=== PATIENT | male | born 1965 | race Caucasian/White ===

== ENCOUNTER → 2020-08-31 16:28 | Outpatient (CLI) | payer BC, SELFPAY ==
[2020-09-01 08:48] LABS: Basophils % 0.5 % (0.1-2.0); Eosinophils # 0.1 K/mm3 (0.0-0.4); Eosinophils % 2.2 % (0.1-12.0); Hematocrit 50.2 % (42.0-52.0); Hemoglobin 16.2 g/dL (14.1-18.0); Lymphocytes # 2.3 K/mm3 (0.7-4.5); Lymphocytes % 36.6 % (10-50); Mean Corpuscular HGB Conc 32.3 g/dL (31.8-35.4); Mean Corpuscular Hemoglobin 31.4 pg (27.0-31.2); Mean Corpuscular Volume 97.2 fl (80-94); Mean Platelet Volume 10.5 fl (7.4-10.4); Monocytes # 0.3 K/mm3 (0.1-1.0); Monocytes % 5.4 % (1.7-9.3); Neutrophils # 3.5 K/mm3 (1.8-7.8); Neutrophils % 55.3 % (37.0-80.0); Platelet Count 229 K/mm3 (142-424); Red Blood Count 5.17 M/mm3 (4.60-6.20); Red Cell Distribution Width 12.7 % (11.5-17.5); White Blood Count 6.3 K/mm3 (4.8-10.8)
[2020-09-01 09:01] LABS: Alanine Aminotransferase 26 U/L (12-78); Albumin Level 4.4 g/dl (3.5-5.0); Albumin/Globulin Ratio 1.6 (1.1-1.8); Alkaline Phosphatase 93 U/L (38-126); Anion Gap 12.8 mEq/L (5-15); Aspartate Amino Transferase 30 U/L (17-59); Bilirubin,Total 0.5 mg/dl (0.2-1.3); Blood Urea Nitrogen 13 mg/dl (9-20); Calcium 9.7 mg/dl (8.4-10.2); Carbon Dioxide 29 mmol/L (22.0-30.0); Chloride 103 mmol/L (98-107); Chol/HDL Ratio 5.9 (1-3.5); Cholesterol 199 mg/dl (140-200); Estimated Glomerular Filt Rate 100 ml/min (>60); GFR (African American) 121 ML/MIN (>60); Globulin 2.7 g/dL (1.3-3.2); Glucose 100 mg/dl (74-100); HDL Cholesterol 34 mg/dl (40-60); Potassium 4.8 mmoL/L (3.5-5.1); Sodium 140 mmol/L (136-145); Total Protein,Serum 7.1 g/dl (6.3-8.2); Triglycerides 304 mg/dl (30-150); VLDL Cholesterol 61 mg/dL (0-40)
[2020-09-01 09:12] LABS: Direct LDL Cholesterol 115.08 mg/dL (100-129)
[2020-09-01 09:32] LABS: Prostate Specific Ag, Diagnost 1.06 ng/ml (0.0-4.0)
[2020-09-08 13:25] LABS: Testosterone, Total, LC/MS 358.3 ng/dL (264.0-916.0)
== END ==
PROVIDERS: Visit Provider Family Medicine
DX: Z00.00 Encounter for general adult medical examination without abnormal findings (principal); Z12.5 Encounter for screening for malignant neoplasm of prostate
CPT/HCPCS: 80053; 80061; 84153; 84402; 84403; 85025

== ENCOUNTER → 2022-08-13 06:43 | Outpatient (CLI) | payer SELFPAY | PROVIDERS: PCP Family Medicine; Visit Provider Family Medicine | DX: N23 Unspecified renal colic (principal) | CPT/HCPCS: 87086 ==

== ENCOUNTER → 2023-05-22 16:01 | Outpatient (CLI) | payer SELFPAY ==
[2023-05-22 18:40] LABS: Hematocrit 46.8 % (42.0-52.0); Hemoglobin 15.2 g/dL (14.1-18.0); Mean Corpuscular HGB Conc 32.6 g/dL (31.8-35.4); Mean Corpuscular Hemoglobin 30.3 pg (27.0-31.2); Mean Corpuscular Volume 93.1 fl (80-94); Mean Platelet Volume 9.2 fl (7.4-10.4); Platelet Count 233 K/mm3 (142-424); Red Blood Count 5.02 M/mm3 (4.60-6.20); Red Cell Distribution Width 13.4 % (11.5-17.5); White Blood Count 6.9 K/mm3 (4.8-10.8)
[2023-05-22 18:41] LABS: Basophils % 0.3 % (0.1-2.0); Eosinophils # 0.1 K/mm3 (0.0-0.4); Eosinophils % 1.4 % (0.1-12.0); Lymphocytes # 2.2 K/mm3 (0.7-4.5); Lymphocytes % 31.6 % (10-50); Monocytes # 0.3 K/mm3 (0.1-1.0); Monocytes % 4.2 % (1.7-9.3); Neutrophils # 4.3 K/mm3 (1.8-7.8); Neutrophils % 62.4 % (37.0-80.0)
[2023-05-22 18:56] LABS: Alanine Aminotransferase 21 U/L (12-78); Albumin Level 4.2 g/dl (3.5-5.0); Albumin/Globulin Ratio 1.6 (1.1-1.8); Alkaline Phosphatase 79 U/L (38-126); Anion Gap 16.1 mEq/L (5-15); Aspartate Amino Transferase 25 U/L (17-59); Bilirubin,Total 0.2 mg/dl (0.2-1.3); Blood Urea Nitrogen 11 mg/dl (9-20); Calcium 9.1 mg/dl (8.4-10.2); Carbon Dioxide 26 mmol/L (22.0-30.0); Chloride 101 mmol/L (98-107); Chol/HDL Ratio 5.3 (1-3.5); Cholesterol 184 mg/dl (140-200); Estimated Glomerular Filt Rate 99 ml/min (>60); GFR (African American) 120 ML/MIN (>60); Globulin 2.6 g/dL (1.3-3.2); Glucose 96 mg/dl (74-100); HDL Cholesterol 35 mg/dl (40-60); Potassium 4.1 mmoL/L (3.5-5.1); Sodium 139 mmol/L (136-145); Total Protein,Serum 6.8 g/dl (6.3-8.2); Triglycerides 193 mg/dl (30-150); VLDL Cholesterol 39 mg/dL (0-40)
[2023-05-22 19:15] LABS: Direct LDL Cholesterol 104.23 mg/dL (100-129)
[2023-05-22 19:29] LABS: Prostate Specific Ag Screen 1.7 ng/ml (0.0-4.0); Thyroid Stimulating Hormone 1.07 uIU/mL (0.465-4.68)
[2023-05-24 08:17] LABS: Testosterone,Total 276 ng/dL (264-916)
== END ==
LOC: LAB.DROPOF 05-23 06:45
PROVIDERS: PCP Family Medicine; Visit Provider Family Medicine
DX: Z00.00 Encounter for general adult medical examination without abnormal findings (principal); R53.83 Other fatigue; R10.9 Unspecified abdominal pain; R10.2 Pelvic and perineal pain; Z79.899 Other long term (current) drug therapy
CPT/HCPCS: 80053; 80061; 84403; 84443; 85025; G0103

== ENCOUNTER 2024-06-17 12:48 | Inpatient (IN) | payer MEDICAID, SELFPAY ==
[2024-06-17] VITALS (24 sets, daily range): BP systolic 115–179; BP diastolic 60–98; PULSE 60–92; RESP 14–27; TEMP 36.4–36.9; O2SAT 89–97; BMI 26.9
[2024-06-17 12:57] LABS: Microscopic, Urine URINE MICROSCOPIC (MICROSCOPIC)
[2024-06-17 12:59] LABS: Appearance,Urine CLEAR (Clear); Blood, Urine TRACE-I (Negative); Glucose,Urine (UA) Negative (Negative); Ketones,Urine Negative (Negative); Leukocyte Esterase,Urine Negative (Negative); Nitrate,Urine Negative (Negative); Protein,Urine Negative (Negative); Specific Gravity, Urine 1.025 (1.005-1.030)
[2024-06-17 13:13] LABS: Bilirubin,Urine Negative (Negative)
[2024-06-17 13:14] LABS: Color,Urine Dark Yellow (Yellow)
--- NOTE | 2024-06-17 13:21 | CT_ITS ---
FINAL REPORT TECHNIQUE: IV contrast enhanced exam This study was performed with techniques to keep radiation doses as low as reasonably achievable, (ALARA). Individualized dose reduction techniques using automated exposure control or adjustment of mA and/or kV according to the patient''s size were employed. CLINICAL HISTORY: lower abd pain, history of SBO, bilious vomit FINDINGS: Abdomen: There are numerous small calcified granulomas throughout the lung bases. The gallbladder is contracted. There is a left adrenal mass measuring 27 x 24 mm. The remaining solid abdominal organs are unremarkable. There is proximal small bowel distension with fluid measuring up to 37 mm with distal small bowel decompressed. The transition point is noted within the right abdomen best seen on coronal images 34-37 with thickened jejunum at the transition point. The distal most small bowel shows no wall thickening. There is no adenopathy. Pelvis: The appendix is not identified but there are no secondary findings to suggest appendicitis. There is trace free fluid. The prostate is mildly enlarged. Tiny left inguinal hernia is identified. There is no free fluid. IMPRESSION: High-grade small-bowel obstruction involving mid jejunum in the right abdomen. Transition point associated with mildly thickened small bowel without obvious hernia or surrounding mass. Reviewed, Interpreted and Dictated by Andrew Acuna MD Transcribed by Keyla Marquez Authenticated and [facility]
[2024-06-17 13:28] LABS: Basophils % 0.3 % (0.1-2.0); Eosinophils # 0.1 K/mm3 (0.0-0.4); Eosinophils % 0.8 % (0.1-12.0); Hematocrit 50.4 % (42.0-52.0); Hemoglobin 16.9 g/dL (14.1-18.0); Lymphocytes # 1.3 K/mm3 (0.7-4.5); Mean Corpuscular HGB Conc 33.5 g/dL (31.8-35.4); Mean Corpuscular Hemoglobin 31.2 pg (27.0-31.2); Mean Corpuscular Volume 93.2 fl (80-94); Mean Platelet Volume 8.3 fl (7.4-10.4); Monocytes # 0.3 K/mm3 (0.1-1.0); Monocytes % 3.2 % (1.7-9.3); Neutrophils # 8.8 K/mm3 (1.8-7.8); Neutrophils % 83.7 % (37.0-80.0); Platelet Count 246 K/mm3 (142-424); Red Blood Count 5.41 M/mm3 (4.60-6.20); Red Cell Distribution Width 13.9 % (11.5-17.5); White Blood Count 10.5 K/mm3 (4.8-10.8)
[2024-06-17 13:29] LABS: Chloride 105 mmol/L (98-107); Potassium 4.1 mmoL/L (3.5-5.1); Sodium 139 mmol/L (136-145)
[2024-06-17 13:31] LABS: Alanine Aminotransferase 31 U/L (12-78); Aspartate Amino Transferase 31 U/L (17-59); Blood Urea Nitrogen 18 mg/dl (9-20); Creatinine Clearance Estimated 107 mL/min (50-200); Estimated Glomerular Filt Rate 86 ml/min (>60); GFR (African American) 105 ML/MIN (>60)
[2024-06-17] MEDS: ACETAMINOPHEN 1,000MG/100ML VIAL 1000 MG IV (13:31)
[2024-06-17] MEDS: KETOROLAC 30MG/ML VIAL 15 MG IV (13:31)
[2024-06-17] MEDS: LACTATED RINGERS 1000ML 1,000 ML 999 ML IV (13:31)
[2024-06-17] MEDS: HYDROMORPHONE 2MG/ML SYRINGE 0.5 MG IV (13:31)
[2024-06-17] MEDS: ONDANSETRON 4MG/2ML VIAL 4 MG IV (13:31)
[2024-06-17 13:32] LABS: Albumin Level 4.5 g/dl (3.5-5.0); Albumin/Globulin Ratio 1.5 (1.1-1.8); Alkaline Phosphatase 70 U/L (38-126); Anion Gap 10.1 mEq/L (5-15); Bilirubin,Total 0.9 mg/dl (0.2-1.3); Calcium 9.7 mg/dl (8.4-10.2); Carbon Dioxide 28 mmol/L (22.0-30.0); Globulin 3.1 g/dL (1.3-3.2); Glucose 124 mg/dl (74-100); Lipase 34 U/L (23-300); Total Protein,Serum 7.6 g/dl (6.3-8.2)
[2024-06-17 13:40] LABS: Lactic Acid 1.5 mmol/L (0.7-2.1)
--- NOTE | 2024-06-17 13:42 | HMH.EDGENADL ---
Discharge Plan Disposition Patient Disposition: Admitted Prescriptions Prescriptions: No Action atorvastatin 40 mg tablet 40 mg PO HS Qty: 90 3RF clopidogrel 75 mg tablet 75 mg PO DAILY Qty: 90 3RF bupropion HCl [Wellbutrin SR] 150 mg tablet sustained-release 12 hr 150 mg PO BID Qty: 180 3RF sildenafil [Viagra] 100 mg tablet 100 mg PO DAILY PRN (Reason: sexual activity) Qty: 10 12RF Rx Instructions: administer 30 minutes to 4 hours before activity fluoxetine 20 mg capsule See Rx Instructions .ROUTE .COMPLEX Qty: 30 0RF Dose Instruction: TAKE 1 CAPSULE BY MOUTH DAILY Rx Instructions: TAKE 1 CAPSULE BY MOUTH DAILY Referrals Follow up/Referrals: Ceasar Myles MD [Primary Care Provider] - See instructions Clinical Impressions Clinical Impression: SBO (small bowel obstruction) Instructions Patient Instructions: DI for Acute Abdominal Pain Print Language Print Language: Hungarian Discharge ED Provider: Sung Shook General Adult HPI <Sung Shook MD - Last Filed: 06/17/24 14:50> General Chief complaint: Abdominal Pain Stated complaint: abd pain vomiting Time Seen by Provider: 06/17/24 13:06 Mode of Arrival: Ambulatory Source of Information: Patient and Spouse Limitations: No Limitations Description of Symptoms (Recalled from ER Triage Doc. by RN): pt c/o umbilical abd pain that is cramping in nature and 8/10. pt reports his last BM was 06/14. pt reports he has not had a BM since nor is he passing gas. pt does report belching and N/V. pt has a hx of SBO, RI, and an appe. History of Present Illness HPI narrative: Please note that above description of symptoms, in this electronic medical record under categorization of recalled from ER triage doctor by RN are reflective of an initial nursing assessment, however, is not reflective of my full history and physical exam that was personally taken and clarified. Consequentially, this preceding description of symptoms, which may include the patient's categorized chief complaint in the EMR, do not reflect my personal clinical impression, and the ultimate description of history of present illness and patient stated complaints should be deferred to this section of the note. Unless stated otherwise or congruent with this section of the note, additional signs, symptoms, or incongruence should be interpreted as inaccurate with my clinical impression. Related Data Previous Rx's ?Medication ?Instructions ?Recorded atorvastatin 40 mg tablet 40 mg PO HS #90 tabs 01/07/24 bupropion HCl 150 mg tablet,12 hr 150 mg PO BID #180 ea 01/07/24 sustained-release (Wellbutrin SR) clopidogrel 75 mg tablet 75 mg PO DAILY #90 tabs 01/07/24 sildenafil 100 mg tablet (Viagra) 100 mg PO DAILY PRN sexual 01/07/24 activity #10 tabs fluoxetine 20 mg capsule See Rx Instructions .Route 06/08/24 .COMPLEX #30 caps Allergies Allergy/AdvReac Type Severity Reaction Status Date / Time No Known Allergies Allergy Verified 06/17/24 13:24 PFS <Sung Shook MD - Last Filed: 06/17/24 14:50> [facility] Disclaimer: The information contained in this section may have been updated after the patient was seen, as this information can be updated by other users. Medical History Depression Erosive osteoarthritis of multiple sites Heart attack Surgical History Hx of appendectomy Family History Other Diabetes Social History Smoking Status: Never smoker alcohol intake: current alcohol intake frequency: holidays/special occasions only substance use type: denies use current occupational status: employed Travel in the last 8 weeks: None household members: none housing: apartment <Sung Shook MD - Last Filed: 06/17/24 14:50> ROS Obtained: Yes All systems reviewed & no additional complaints except as documented Physical Exam <Sung Shook MD - Last Filed: 06/17/24 14:50> General General appearance: alert and in distress (Mild distress secondary to pain, moving around in room in bed) Head Head exam: atraumatic and normocephalic Eye Eye exam: Present normal appearance, PERRL and EOMI Neck Neck exam: Present normal inspection, full ROM and trachea midline Respiratory Respiratory exam: Absent respiratory distress, wheezes, stridor, accessory muscle use or prolonged expiratory phase Cardiovascular Cardiovascular exam: Present regular rate, normal rhythm and other (Pulses equal symmetric in upper and lower extremities) Abdominal Exam Abdominal exam: Present soft, distention, tenderness, guarding and rebound; Absent rigidity or pulsatile mass Abdominal tenderness: Present diffuse and severe Extremities Exam Extremities exam: Absent edema Neurological Exam Neurological exam: Present alert, oriented X3 and CN II-XII intact; Absent motor sensory deficit Skin Skin exam: Present warm and dry; Absent diaphoresis or erythema Medical Decision Making <Sung Shook MD - Last Filed: 06/17/24 14:50> Medical Records Medical records reviewed: Yes I reviewed the patient's medical records. Chalino Inquiry Pt receiving controlled substance: No Chalino was queried for this patient: No Vital Signs: 06/17/24 12:55 06/17/24 13:16 06/17/24 13:31 Temperature 98.4 F Temperature Source Oral Pulse Rate 70 76 Pulse Rate [Left] 71 Respiratory Rate 16 Blood Pressure 142/92 H 144/88 H Blood Pressure [Right Arm] 142/92 H Blood Pressure Mean 106 113 Blood Pressure Mean [Right Arm] 108 Blood Pressure Source [Right Arm] Automatic Cuff Blood Pressure Position [Right Arm] Sitting 02 Sat by Pulse Oximetry 96 96 96 Oxygen Delivery Method Room Air Room Air Room Air 06/17/24 14:01 06/17/24 14:30 06/17/24 15:00 Temperature Temperature Source Pulse Rate 66 63 63 Pulse Rate [Left] Respiratory Rate Blood Pressure 127/67 132/72 127/84 Blood Pressure [Right Arm] Blood Pressure Mean 87 92 93 Blood Pressure Mean [Right Arm] Blood Pressure Source [Right Arm] Blood Pressure Position [Right Arm] 02 Sat by Pulse Oximetry 95 95 96 Oxygen Delivery Method Room Air Room Air Room Air Lab Data Lab Results 06/17/24 12:51: Urine Color Dark yellow, Urine Appearance Clear, Urine pH 6.0, Ur Specific Channing 1.025, Urine Protein Negative, Urine Glucose (UA) Negative, Urine Ketones Negative, Urine Blood Trace-i, Urine Nitrate Negative, Urine Bilirubin Negative, Urine Urobilinogen 1.0, Ur Leukocyte Esterase Negative, Urine RBC Occasional, Urine WBC 3-5, Ur Squamous Epith Cells 3-5, Urine Bacteria Trace, Urine Mucus Trace 06/17/24 13:03: WBC 10.5, RBC 5.41, Hgb 16.9, Hct 50.4, MCV 93.2, MCH 31.2, MCHC 33.5, RDW 13.9, Plt Count 246, MPV 8.3, Neut % (Auto) 83.7 H, Lymph % (Auto) 12.0, [place] % (Auto) 3.2, Eos % (Auto) 0.8, Baso % (Auto) 0.3, Neut # (Auto) 8.8 H, Lymph # (Auto) 1.3, [place] # (Auto) 0.3, Eos # (Auto) 0.1, Baso # (Auto) 0.0, Sodium 139, Potassium 4.1, Chloride 105, Carbon Dioxide 28, Anion Gap 10.1, BUN 18, Creatinine 0.90, Estimated Creat Clear 107, Estimated GFR 86, Est GFR ( Amer) 105, Glucose 124 H, Lactate 1.5, Calcium 9.7, Total Bilirubin 0.9, AST 31, ALT 31, Alkaline Phosphatase 70, Total Protein 7.6, Albumin 4.5, Globulin 3.1, Albumin/Globulin Ratio 1.5, Lipase 34 06/17/24 13:03 06/17/24 13:03 Orders (Tests/Meds): ED MEDICATIONS Generic Name Dose Route Start Last Admin Trade Name Freq PRN Reason Stop Dose Admin Ampicillin Sodium/Sulbactam 100 mls @ 200 mls/hr 06/17/24 15:26 Sodium 3 gm/ Sodium Chloride IV 06/17/24 15:27 ONCE ONE Discontinued Medications Generic Name Dose Route Start Last Admin Trade Name Freq PRN Reason Stop Dose Admin Acetaminophen 1,000 mg 06/17/24 13:21 06/17/24 13:31 Acetaminophen 1,000mg/100ml Vial IV 06/17/24 13:22 1,000 mg ONCE ONE Administration Hydromorphone HCl 0.5 mg 06/17/24 13:21 06/17/24 13:31 Hydromorphone 2mg/Ml Syringe IV 06/17/24 13:22 0.5 mg ONCE ONE Administration Lactated Ringer's 1,000 mls @ 999 mls/hr 06/17/24 13:22 06/17/24 13:31 Lactated Ringer's 1000 Ml Bag IV 06/17/24 14:22 999 mls/hr .Q1H1M ONE Administration Iopamidol 75 ml 06/17/24 13:56 06/17/24 13:57 Iopamidol-370 (76%);100ml Bottle IV 06/17/24 13:57 75 ml ONCE ONE Administration Ketorolac Tromethamine 15 mg 06/17/24 13:21 06/17/24 13:31 Ketorolac 30mg/Ml Vial IV 06/17/24 13:22 15 mg ONCE ONE Administration Ondansetron HCl 4 mg 06/17/24 13:21 06/17/24 13:31 Ondansetron 4mg/2ml Vial IV 06/17/24 13:22 4 mg ONCE ONE Administration Sodium Chloride 10 ml 06/17/24 13:56 06/17/24 13:57 Sodium Chloride 0.9% 10ml Syr (Rad Only) IV 06/17/24 13:57 10 ml ONCE ONE Administration ORDERS Category Date Time Status CT abdomen pelvis w con Stat Cat Scan 06/17/24 13:21 Completed Surgery Consult (on-call) [Consult to On-Call Gen'l Cons 06/17/24 14:49 Ordered Surgeon] [CONS] Routine KUB (single view) [XR KUB] Stat Exams 06/17/24 14:47 Taken CBC w/Auto Diff [Complete Blood Count Auto Diff] Stat Lab 06/17/24 13:03 Completed CMP [Comprehensive Metabolic Panel] Stat Lab 06/17/24 13:03 Completed Complete Blood Count Auto Diff AMLAB Lab 06/18/24 06:00 Ordered Comprehensive Metabolic Panel AMLAB Lab 06/18/24 06:00 Ordered Lactic Acid Stat Lab 06/17/24 13:03 Completed Lipase Stat Lab 06/17/24 13:03 Completed Magnesium AMLAB Lab 06/18/24 06:00 Ordered UA [Urinalysis and Microscopic] Stat Lab 06/17/24 12:51 Completed Medical Decision Narrative: 58-year-old male history of hypertension, hyperlipidemia, RI and CAD status post stenting, congenital gastroschisis status post repair, appendectomy presenting with abdominal pain. Patient states that he had a small bowel obstruction about 15 years ago, felt a lot like this. He states that he has not had a bowel movement now in 4 days. 3 days ago, started having lower abdominal cramping pain associated with nausea. Yesterday, 06/16, patient started having vomiting that was dark brown. Has not had any solid food intake in over 24 hours given amount of nausea. Had a couple coffee earlier today, but felt like he was going to vomit shortly thereafter. No fevers, chills, urinary symptoms, blood in his stool, he is not passing gas. Small bowel obstruction 15 years ago was managed nonoperatively. Pain currently severe, diffuse, patient unable to get comfortable, refractory to Tylenol and does not radiate. History was obtained via conversation with patient. On arrival, patient hemodynamically stable, alert, oriented x4, appropriate, GCS 15, moving all extremities spontaneously, pupils equal and reactive to light. Full physical exam performed and significant for uncomfortable appearing male who is in mild distress secondary to pain. Sitting up, lying down, unable to get comfortable. Abdomen is soft, distended, but peritonitic in the sense that is diffusely, severely tender with guarding. Differential includes PUD, gastritis, enteritis, gastroenteritis, pancreatitis, SBO, colitis, diverticulitis, nephrolithiasis, UTI, cholecystitis, choledocholithiasis, appendicitis, torsion, hepatitis, aortic pathology, mesenteric ischemia among others. Patient placed on continuous cardiac monitoring and continuous pulse ox with initial blood pressure 144/88, heart rate 76, saturation 96 on room air. Patient was given Toradol, acetaminophen, Dilaudid, Zofran, fluids for symptomatic management and correction of underlying abnormalities. Workup independently interpreted and significant for nonactionable CBC or chemistry. Lactate negative. Urinalysis negative. CT abdomen pelvis concerning for potential closed-loop small bowel obstruction with maximum diameter small bowel 4.1 cm. See radiology read for full review of final results. On reevaluation, patient pain improved, but still uncomfortable hospital medicine contacted case was discussed at length, recommended calling surgery first. Dr. Nation was contacted and case was discussed at length, he is coming to see patient. Prior to evaluation, care handed off to oncoming physician. NG tube was placed, KUB was ordered. Computer Numeric Control Setter disclaimer Much of this encounter note is an electronic bread and pastry baker spoken language to printed text. Electronic bread and pastry baker of the spoken language may permit errors. Although I have reviewed the note, some errors may still exist. <Patti Briggs, DO - Last Filed: 06/17/24 15:28> Vital Signs: 06/17/24 12:55 06/17/24 13:16 06/17/24 13:31 Temperature 98.4 F Temperature Source Oral Pulse Rate 70 76 Pulse Rate [Left] 71 Respiratory Rate 16 Blood Pressure 142/92 H 144/88 H Blood Pressure [Right Arm] 142/92 H Blood Pressure Mean 106 113 Blood Pressure Mean [Right Arm] 108 Blood Pressure Source [Right Arm] Automatic Cuff Blood Pressure Position [Right Arm] Sitting 02 Sat by Pulse Oximetry 96 96 96 Oxygen Delivery Method Room Air Room Air Room Air 06/17/24 14:01 06/17/24 14:30 06/17/24 15:00 Temperature Temperature Source Pulse Rate 66 63 63 Pulse Rate [Left] Respiratory Rate Blood Pressure 127/67 132/72 127/84 Blood Pressure [Right Arm] Blood Pressure Mean 87 92 93 Blood Pressure Mean [Right Arm] Blood Pressure Source [Right Arm] Blood Pressure Position [Right Arm] 02 Sat by Pulse Oximetry 95 95 96 Oxygen Delivery Method Room Air Room Air Room Air Lab Data Lab Results 06/17/24 12:51: Urine Color Dark yellow, Urine Appearance Clear, Urine pH 6.0, Ur Specific Channing 1.025, Urine Protein Negative, Urine Glucose (UA) Negative, Urine Ketones Negative, Urine Blood Trace-i, Urine Nitrate Negative, Urine Bilirubin Negative, Urine Urobilinogen 1.0, Ur Leukocyte Esterase Negative, Urine RBC Occasional, Urine WBC 3-5, Ur Squamous Epith Cells 3-5, Urine Bacteria Trace, Urine Mucus Trace 06/17/24 13:03: WBC 10.5, RBC 5.41, Hgb 16.9, Hct 50.4, MCV 93.2, MCH 31.2, MCHC 33.5, RDW 13.9, Plt Count 246, MPV 8.3, Neut % (Auto) 83.7 H, Lymph % (Auto) 12.0, [place]eton % (Auto) 3.2, Eos % (Auto) 0.8, Baso % (Auto) 0.3, Neut # (Auto) 8.8 H, Lymph # (Auto) 1.3, [place] # (Auto) 0.3, Eos # (Auto) 0.1, Baso # (Auto) 0.0, Sodium 139, Potassium 4.1, Chloride 105, Carbon Dioxide 28, Anion Gap 10.1, BUN 18, Creatinine 0.90, Estimated Creat Clear 107, Estimated GFR 86, Est GFR ( Amer) 105, Glucose 124 H, Lactate 1.5, Calcium 9.7, Total Bilirubin 0.9, AST 31, ALT 31, Alkaline Phosphatase 70, Total Protein 7.6, Albumin 4.5, Globulin 3.1, Albumin/Globulin Ratio 1.5, Lipase 34 Orders (Tests/Meds): ED MEDICATIONS Generic Name Dose Route Start Last Admin Trade Name Veronika PRN Reason Stop Dose Admin Ampicillin Sodium/Sulbactam 100 mls @ 200 mls/hr 06/17/24 15:26 Sodium 3 gm/ Sodium Chloride IV 06/17/24 15:27 ONCE ONE Discontinued Medications Generic Name Dose Route Start Last Admin Trade Name Veronika PRN Reason Stop Dose Admin Acetaminophen 1,000 mg 06/17/24 13:21 06/17/24 13:31 Acetaminophen 1,000mg/100ml Vial IV 06/17/24 13:22 1,000 mg ONCE ONE Administration Hydromorphone HCl 0.5 mg 06/17/24 13:21 06/17/24 13:31 Hydromorphone 2mg/Ml Syringe IV 06/17/24 13:22 0.5 mg ONCE ONE Administration Lactated Ringer's 1,000 mls @ 999 mls/hr 06/17/24 13:22 06/17/24 13:31 Lactated Ringer's 1000 Ml Bag IV 06/17/24 14:22 999 mls/hr .Q1H1M ONE Administration Iopamidol 75 ml 06/17/24 13:56 06/17/24 13:57 Iopamidol-370 (76%);100ml Bottle IV 06/17/24 13:57 75 ml ONCE ONE Administration Ketorolac Tromethamine 15 mg 06/17/24 13:21 06/17/24 13:31 Ketorolac 30mg/Ml Vial IV 06/17/24 13:22 15 mg ONCE ONE Administration Ondansetron HCl 4 mg 06/17/24 13:21 06/17/24 13:31 Ondansetron 4mg/2ml Vial IV 06/17/24 13:22 4 mg ONCE ONE Administration Sodium Chloride 10 ml 06/17/24 13:56 06/17/24 13:57 Sodium Chloride 0.9% 10ml Syr (Rad Only) IV 06/17/24 13:57 10 ml ONCE ONE Administration ORDERS Category Date Time Status CT abdomen pelvis w con Stat Cat Scan 06/17/24 13:21 Completed Surgery Consult (on-call) [Consult to On-Call Gen'l Cons 06/17/24 14:49 Ordered Surgeon] [CONS] Routine KUB (single view) [XR KUB] Stat Exams 06/17/24 14:47 Taken CBC w/Auto Diff [Complete Blood Count Auto Diff] Stat Lab 06/17/24 13:03 Completed CMP [Comprehensive Metabolic Panel] Stat Lab 06/17/24 13:03 Completed Complete Blood Count Auto Diff AMLAB Lab 06/18/24 06:00 Ordered Comprehensive Metabolic Panel AMLAB Lab 06/18/24 06:00 Ordered Lactic Acid Stat Lab 06/17/24 13:03 Completed Lipase Stat Lab 06/17/24 13:03 Completed Magnesium AMLAB Lab 06/18/24 06:00 Ordered UA [Urinalysis and Microscopic] Stat Lab 06/17/24 12:51 Completed ECG Data Tracing #1: I reviewed this ECG and interpreted as documented below: Sinus bradycardia with a ventricular rate of [address] changes concerning for ischemia. Normal axis and intervals. ECG initial impression date: 06/17/24 ECG initial impression time: 15:27 Medical Decision Narrative: 58-year-old male history of hypertension, hyperlipidemia, RI and CAD status post stenting, congenital gastroschisis status post repair, appendectomy presenting with abdominal pain. Patient states that he had a small bowel obstruction about 15 years ago, felt a lot like this. He states that he has not had a bowel movement now in 4 days. 3 days ago, started having lower abdominal cramping pain associated with nausea. Yesterday, 06/16, patient started having vomiting that was dark brown. Has not had any solid food intake in over 24 hours given amount of nausea. Had a couple coffee earlier today, but felt like he was going to vomit shortly thereafter. No fevers, chills, urinary symptoms, blood in his stool, he is not passing gas. Small bowel obstruction 15 years ago was managed nonoperatively. Pain currently severe, diffuse, patient unable to get comfortable, refractory to Tylenol and does not radiate. History was obtained via conversation with patient. On arrival, patient hemodynamically stable, alert, oriented x4, appropriate, GCS 15, moving all extremities spontaneously, pupils equal and reactive to light. Full physical exam performed and significant for uncomfortable appearing male who is in mild distress secondary to pain. Sitting up, lying down, unable to get comfortable. Abdomen is soft, distended, but peritonitic in the sense that is diffusely, severely tender with guarding. Differential includes PUD, gastritis, enteritis, gastroenteritis, pancreatitis, SBO, colitis, diverticulitis, nephrolithiasis, UTI, cholecystitis, choledocholithiasis, appendicitis, torsion, hepatitis, aortic pathology, mesenteric ischemia among others. Patient placed on continuous cardiac monitoring and continuous pulse ox with initial blood pressure 144/88, heart rate 76, saturation 96 on room air. Patient was given Toradol, acetaminophen, Dilaudid, Zofran, fluids for symptomatic management and correction of underlying abnormalities. Workup independently interpreted and significant for nonactionable CBC or chemistry. Lactate negative. Urinalysis negative. CT abdomen pelvis concerning for potential closed-loop small bowel obstruction with maximum diameter small bowel 4.1 cm. See radiology read for full review of final results. On reevaluation, patient pain improved, but still uncomfortable hospital medicine contacted case was discussed at length, recommended calling surgery first. Dr. Nation was contacted and case was discussed at length, he is coming to see patient. Prior to evaluation, care handed off to oncoming physician. NG tube was placed, KUB was ordered. Computer Numeric Control Setter disclaimer Much of this encounter note is an electronic bread and pastry baker spoken language to printed text. Electronic bread and pastry baker of the spoken language may permit errors. Although I have reviewed the note, some errors may still exist. DO [place]: On my assessment of the Patient, he is stable. Surgery recommended going to the OR now for evaluation and management. I had an interactive discussion with the hospitalist who is to admit the patient following his operative intervention. Critical Care <Sung Shook MD - Last Filed: 06/17/24 14:50> Critical Care Time Critical Care Time: Yes (GI) Attestation: On 06/17/24, the high probability of a clinically significant, sudden or life threatening deterioration of the following system(s) required my full and direct attention, intervention and personal management. The time I documented below is in addition to time spent performing reported procedures but includes the following listed in this critical care notation. Total Time Total Critical Care Time: 45
[2024-06-17] MEDS: IOPAMIDOL-370 (76%);100ML BOTTLE 75 ML IV (13:57)
[2024-06-17] MEDS: SODIUM CHLORIDE 0.9% 10ML SYR (RAD ONLY) 10 ML IV (13:57)
[2024-06-17 14:10] LABS: Bacteria,Urine Trace /lpf; RBC,Urine Occasional #/hpf (0-3)
[2024-06-17 14:11] LABS: Mucus,Urine Trace /lpf
--- NOTE | 2024-06-17 14:47 | XR_ITS ---
FINAL REPORT CLINICAL HISTORY: NGT placement COMPARISON: None FINDINGS: NG tube is located in the proximal gastric body. There is small bowel distention in a pattern suggesting obstruction. Contrast is seen within a nondistended bladder. No abnormal radiopacities are seen in the abdomen. IMPRESSION: NG tube in the proximal gastric body. Small bowel distention suggesting obstruction. Reviewed, Interpreted and Dictated by Andrew Acuna MD Transcribed by Sarika Mahajan Authenticated and . [facility]
--- NOTE | 2024-06-17 14:57 | PC.NURSE ---
Dr. Farias at for consult
--- NOTE | 2024-06-17 15:19 | PC.NURSE ---
DR MCALLISTER NOTIFIED OF PT NEED FOR ADMISSION AFTER SURGERY
--- NOTE | 2024-06-17 15:20 | EXP.SURG.CON ---
History of Present Illness *Admission Date: 06/17/24 *Reason for visit:: Abdominal pain *History of present illness: Patient is a 58-year-old male from [facility] whom had previous abdominal surgery as an infant without specific details known. He did have an open appendectomy as well. He has had a prior history of small bowel obstruction managed nonoperatively. He states that he had developed abdominal pain in the mid abdomen about 2 days ago described as cramping. He has had obstipation and not passing gas. He had nausea and some vomiting. Due to the persistence of his pain he presented to the emergency department. He was found to have appreciable tenderness on examination. Surgical consultation was obtained. In the interim CT report returns with findings of high-grade small bowel obstruction involving mid jejunum with transition point associated with mildly thickened small bowel. [facility] Disclaimer: The information contained in this section may have been updated after the patient was seen, as this information can be updated by other users. Medical History Depression Erosive osteoarthritis of multiple sites Heart attack Surgical History Hx of appendectomy Family History Other Diabetes Social History Smoking Status: Never smoker alcohol intake: current alcohol intake frequency: holidays/special occasions only substance use type: denies use current occupational status: employed Travel in the last 8 weeks: None household members: none housing: apartment Meds Home Medications and Allergies Home Medications ?Medication ?Instructions ?Recorded ?Confirmed ?Type atorvastatin 40 mg tablet 40 mg PO HS #90 tabs 01/07/24 01/22/24 Rx bupropion HCl 150 mg tablet,12 hr 150 mg PO BID #180 ea 01/07/24 01/22/24 Rx sustained-release (Wellbutrin SR) clopidogrel 75 mg tablet 75 mg PO DAILY #90 tabs 01/07/24 01/22/24 Rx sildenafil 100 mg tablet (Viagra) 100 mg PO DAILY PRN sexual 01/07/24 01/22/24 Rx activity #10 tabs fluoxetine 20 mg capsule See Rx Instructions .Route 06/08/24 Rx .COMPLEX #30 caps New Prescriptions to Start Prescriptions: Allergies Allergy/AdvReac Type Severity Reaction Status Date / Time No Known Allergies Allergy Verified 06/17/24 13:24 Exam (Inpt) Vital signs and Labs for Last 24 Hours: Temp Pulse Resp BP Pulse Ox O2 Del Method 98.4 F 63 16 127/84 96 Room Air 06/17/24 13:16 06/17/24 15:00 06/17/24 13:16 06/17/24 15:00 06/17/24 15:00 06/17/24 15:00 Laboratory Results - last 24 hr 06/17/24 12:51: Urine Color Dark yellow, Urine Appearance Clear, Urine pH 6.0, Ur Specific [place] 1.025, Urine Protein Negative, Urine Glucose (UA) Negative, Urine Ketones Negative, Urine Blood Trace-i, Urine Nitrate Negative, Urine Bilirubin Negative, Urine Urobilinogen 1.0, Ur Leukocyte Esterase Negative, Urine RBC Occasional, Urine WBC 3-5, Ur Squamous Epith Cells 3-5, Urine Bacteria Trace, Urine Mucus Trace 06/17/24 13:03: WBC 10.5, RBC 5.41, Hgb 16.9, Hct 50.4, MCV 93.2, MCH 31.2, MCHC 33.5, RDW 13.9, Plt Count 246, MPV 8.3, Neut % (Auto) 83.7 H, Lymph % (Auto) 12.0, [place] % (Auto) 3.2, Eos % (Auto) 0.8, Baso % (Auto) 0.3, Neut # (Auto) 8.8 H, Lymph # (Auto) 1.3, [place] # (Auto) 0.3, Eos # (Auto) 0.1, Baso # (Auto) 0.0, Sodium 139, Potassium 4.1, Chloride 105, Carbon Dioxide 28, Anion Gap 10.1, BUN 18, Creatinine 0.90, Estimated Creat Clear 107, Estimated GFR 86, Est GFR ( Amer) 105, Glucose 124 H, Lactate 1.5, Calcium 9.7, Total Bilirubin 0.9, AST 31, ALT 31, Alkaline Phosphatase 70, Total Protein 7.6, Albumin 4.5, Globulin 3.1, Albumin/Globulin Ratio 1.5, Lipase 34 I & O for Labs for Last 24 Hours: Intake & Output 06/15/24 06/16/24 06/17/24 06/18/24 11:59 11:59 11:59 11:59 Weight 188 lb Constitutional: mild distress Head: Present normocephalic Cardiac: Present Reg Rate and Rhythm GI: Present soft and tenderness Comments:: Abdomen is not appreciably distended. He does have some significant tenderness with guarding. Results Labs 06/17/24 13:03 06/17/24 13:03 Labs: Laboratory Results - last 24 hr 06/17/24 12:51: Urine Color Dark yellow, Urine Appearance Clear, Urine pH 6.0, Ur Specific [place] 1.025, Urine Protein Negative, Urine Glucose (UA) Negative, Urine Ketones Negative, Urine Blood Trace-i, Urine Nitrate Negative, Urine Bilirubin Negative, Urine Urobilinogen 1.0, Ur Leukocyte Esterase Negative, Urine RBC Occasional, Urine WBC 3-5, Ur Squamous Epith Cells 3-5, Urine Bacteria Trace, Urine Mucus Trace 06/17/24 13:03: WBC 10.5, RBC 5.41, Hgb 16.9, Hct 50.4, MCV 93.2, MCH 31.2, MCHC 33.5, RDW 13.9, Plt Count 246, MPV 8.3, Neut % (Auto) 83.7 H, Lymph % (Auto) 12.0, [place] % (Auto) 3.2, Eos % (Auto) 0.8, Baso % (Auto) 0.3, Neut # (Auto) 8.8 H, Lymph # (Auto) 1.3, [place] # (Auto) 0.3, Eos # (Auto) 0.1, Baso # (Auto) 0.0, Sodium 139, Potassium 4.1, Chloride 105, Carbon Dioxide 28, Anion Gap 10.1, BUN 18, Creatinine 0.90, Estimated Creat Clear 107, Estimated GFR 86, Est GFR ( Amer) 105, Glucose 124 H, Lactate 1.5, Calcium 9.7, Total Bilirubin 0.9, AST 31, ALT 31, Alkaline Phosphatase 70, Total Protein 7.6, Albumin 4.5, Globulin 3.1, Albumin/Globulin Ratio 1.5, Lipase 34 Assessment and Plan *Assessment and plan (1) SBO (small bowel obstruction): Status: Acute Category: Medical Code(s): K56.609 - Unspecified intestinal obstruction, unspecified as to partial versus complete obstruction Plan Patient has findings consistent with high-grade partial versus complete small bowel obstruction with peritonitis findings on examination. Plan will be for emergent exploratory laparotomy with possible bowel resection.
--- NOTE | 2024-06-17 15:24 | PC.NURSE ---
pt changed into gown and all belongings given to his at BS. EKG performed.
--- NOTE | 2024-06-17 15:24 | ECG_ITS ---
APPROVED REPORT Exam: Resting ECG HR:58 bpm ECG Measurements Heart Rate 58 AXES MI 196 P 66 QRSd 91 QRS 57 QT 430 T 59 QTc 427 Conclusion SINUS BRADYCARDIA BORDERLINE ECG Electronically signed by : SANGEETHA GOMES, 06/17/2024 22:08:03
--- NOTE | 2024-06-17 16:20 | PC.NURSE ---
PT IS GONE TO SURGERY
[2024-06-17] MEDS: AMPICILLIN SODIUM/SULBACTAM 3 GM in 0.9 % SODIUM CHLORIDE 100 ML IV ×2 (16:50→22:11)
--- NOTE | 2024-06-17 17:12 | P.PNANES_ITS ---
[facility] Disclaimer: The information contained in this section may have been updated after the patient was seen, as this information can be updated by other users. Medical History Depression Erosive osteoarthritis of multiple sites Heart attack Surgical History Hx of appendectomy Family History Other Diabetes Social History Smoking Status: Never smoker alcohol intake: current alcohol intake frequency: holidays/special occasions only substance use type: denies use current occupational status: employed Travel in the last 8 weeks: None household members: none housing: apartment [facility] Anesthesia Checklist Patient Identification Patient Identification: Verbal (Name & ) Structural Data Admitted From: Emergency Dept Planned Operative Procedure/s: ex laparotomy Consent for Planned Operative Procedure(s) Verified: Yes Verified Documents: Surgical Consent NPO Status Verified Time NPO: 00:00 Airway Assessment Mallampati Score:: Class II C-Spine Mobility Assessed: Yes TMJ Mobility Assessed: Yes Dentition: Edentulous Neurological Assessment Level of Consciousness: Awake, Alert and Appropriate Anesthesia Plan Anesthesia Risk discussed: Yes Anesthesia Plan: Verified ASA Class: III Anesthesia Type: General
[2024-06-17] MEDS: SODIUM CHLORIDE 0.9% 20ML VIAL 40 ML IV (17:27)
--- NOTE | 2024-06-17 19:33 | EXP.OP.NOTE ---
Date of procedure: 06/17/24 Pre-op Diagnosis:: Small bowel obstruction Post-op Diagnosis:: Same Procedure performed:: Exploratory laparotomy with extensive lysis of adhesions and small bowel resection Surgeon:: Jose Antonio Nation MD MIXING PLANT OPERATOR:: Reymundo Marvin Anesthesia: GETA Estimated blood loss (mL): 50 Clinical Note:: Patient is a 58-year-old male. He had previously undergone abdominal surgery as an , exact details unknown. He had an open appendectomy. He did have an episode of a small bowel obstruction which was managed without operation. He states that he had developed abdominal pain in the mid abdomen about 2 days ago described as cramping. He has had obstipation and not passing gas. He had nausea and some vomiting. Due to the persistence of his pain he presented to the emergency department. He was found to have appreciable tenderness on examination. Surgical consultation was obtained. In the interim CT report returns with findings of high-grade small bowel obstruction involving mid jejunum with transition point associated with mildly thickened small bowel. He described his pain as approximately 8 out of 10. He had findings of peritonitis on exam. Plan was made for emergent laparotomy. Operative findings:: He had a complete bowel obstruction in the distal jejunum. There was extremely dense, extensive, matted conglomeration of adhesions. Distal small bowel was completely decompressed and proximal small bowel was dilated and edematous. . Operative note:: Patient was taken to the operating room. He was given preoperative intravenous antibiotics. In the operating room he was placed in a supine position. General anesthesia was induced via endotracheal tube. Eagle catheter was placed. Abdomen was prepped and draped in the standard surgical fashion. Upper midline incision was made. Dissection was carried down through subcutaneous tissues. The fascia was incised. Peritoneum was elevated and incised. There was some thin reactive fluid which was suctioned free. Exposure was achieved. There was markedly distended bowel. This was traced distally and there was extremely extensive very densely matted conglomeration of small bowel. For exposure incision was extended. Very prolonged dissection was carried out using mostly meticulous Metzenbaum dissection to free the small bowel adhesions. Ultimately dissection was carried out to decompressed ileum. There were adhesions here as well but no definite obstruction. The adhesions were freed in a similar fashion as before. Dissection was carried down to the terminal ileum. Small bowel which was freed was then inspected. There were a couple of near full-thickness serosal tears and a focal area of devitalized small bowel secondary to unavoidable mesenteric defect. Therefore this section of small bowel was resected. It was divided proximal with a MILENA 75 type stapling device and at the distal portion of devitalization with MILENA 75 stapling device. This was relatively limited resection given the extensive interloop dense adhesions. Section of small bowel removed was 35 cm. A lets-gw-qfoi anastomosis was created with a MILENA 75 stapling device with the common enterotomy closed with a TX 60 B stapling device. Seromuscular suture using 3-0 Surgilon was placed at the confluence of staple lines. A couple of 3-0 Surgilon sutures were placed at the staple line angle. Anastomosis appeared widely patent and intact. Staple line was oversewn with several interrupted 3-0 Surgilon sutures. Mesenteric defect was closed with running 2-0 Vicryl. Small bowel was returned to the abdomen. Nasogastric tube was confirmed to be in a good position. Please note that the small bowel was then run in its entirety in a retrograde fashion from the terminal ileum to the ligament of Treitz. Enteric contents were returned to the abdominal cavity. Irrigation was performed. Fascia was closed with a running #2 Novafil x 2. Subcutaneous tissues were irrigated. Skin was closed with martina. Clean dry sterile dressing was applied. . Condition: stable Disposition: PACU Complications:: None immediately apparent
[2024-06-17] MEDS: MEPERIDINE 25MG/ML 1ML SYRINGE 25 MG (19:40)
--- NOTE | 2024-06-17 19:46 | P.PNANES_ITS ---
[facility] Anesthesia Record Part I Anesthesia Record I Intake, IV Amount: 3,000 Hydration: Adequate Estimated blood loss (mL): 100 Urine output (mL): 300 Blood Pressure: 179/79 SaO2: 94 Pulse Rate: 90 Airway Patency: Patent Respiratory Rate: 14 Temperature: 97.5 F Patient is:: Awake and Stable Stable to PACU at:: 19:40
[2024-06-17] MEDS: MORPHINE 2MG/ML SYRINGE 2 MG IV (20:10)
--- NOTE | 2024-06-17 20:36 | PC.NURSE ---
pt arrived to floor from surgery at this time
--- NOTE | 2024-06-17 21:00 | EXP.HP ---
History of Present Illness *Admission Date: 06/17/24 *Reason for visit:: abd pain *History of present illness: Patient is a 58-year-old male with PMHx of CAD s/p stent, open appendectomy, and a prior history of small bowel obstruction managed nonoperatively. He states that he had developed abdominal pain in the mid abdomen about 2 days ago described as cramping. He has had obstipation and not passing gas. He had nausea and some vomiting. Due to the persistence of his pain he presented to the emergency department. He was found to have appreciable tenderness on examination. Surgical consultation was obtained. In the interim CT report returns with findings of high-grade small bowel obstruction involving mid jejunum with transition point associated with mildly thickened small bowel. emergently taken to OR for exploratory laparotomy. [facility] Disclaimer: The information contained in this section may have been updated after the patient was seen, as this information can be updated by other users. Medical History Depression Erosive osteoarthritis of multiple sites Heart attack Surgical History Hx of appendectomy Family History Other Diabetes Social History (Updated 06/17/24 @ 22:32 by Yolanda Ndiaye RN) Smoking Status: Never smoker alcohol intake: current alcohol intake frequency: holidays/special occasions only substance use type: denies use current occupational status: employed Travel in the last 8 weeks: None household members: none housing: apartment Review of Systems Review of Systems Review of systems:: pertinent systems reviewed and negative unless documented below Meds Home Medications and Allergies Home Medications ?Medication ?Instructions ?Recorded ?Confirmed ?Type atorvastatin 40 mg tablet 40 mg PO HS #90 tabs 01/07/24 06/17/24 Rx bupropion HCl 150 mg tablet,12 hr 150 mg PO BID #180 ea 01/07/24 06/17/24 Rx sustained-release (Wellbutrin SR) clopidogrel 75 mg tablet 75 mg PO DAILY #90 tabs 01/07/24 06/17/24 Rx sildenafil 100 mg tablet (Viagra) 100 mg PO DAILY PRN sexual 01/07/24 06/17/24 Rx activity #10 tabs fluoxetine 20 mg capsule 20 mg PO DAILY 06/17/24 06/17/24 History New Prescriptions to Start Prescriptions: Allergies Allergy/AdvReac Type Severity Reaction Status Date / Time No Known Allergies Allergy Verified 06/17/24 13:24 Exam Data for Last 24 hours Vital signs and Labs for Last 24 Hours: Temp Pulse Resp BP Pulse Ox O2 Del Method 97.5 F L 88 16 134/69 96 Room Air 06/17/24 19:47 06/17/24 20:10 06/17/24 20:10 06/17/24 20:10 06/17/24 20:10 06/17/24 20:10 Laboratory Results - last 24 hr 06/17/24 12:51: Urine Color Dark yellow, Urine Appearance Clear, Urine pH 6.0, Ur Specific [place] 1.025, Urine Protein Negative, Urine Glucose (UA) Negative, Urine Ketones Negative, Urine Blood Trace-i, Urine Nitrate Negative, Urine Bilirubin Negative, Urine Urobilinogen 1.0, Ur Leukocyte Esterase Negative, Urine RBC Occasional, Urine WBC 3-5, Ur Squamous Epith Cells 3-5, Urine Bacteria Trace, Urine Mucus Trace 06/17/24 13:03: WBC 10.5, RBC 5.41, Hgb 16.9, Hct 50.4, MCV 93.2, MCH 31.2, MCHC 33.5, RDW 13.9, Plt Count 246, MPV 8.3, Neut % (Auto) 83.7 H, Lymph % (Auto) 12.0, [place] % (Auto) 3.2, Eos % (Auto) 0.8, Baso % (Auto) 0.3, Neut # (Auto) 8.8 H, Lymph # (Auto) 1.3, [place] # (Auto) 0.3, Eos # (Auto) 0.1, Baso # (Auto) 0.0, Sodium 139, Potassium 4.1, Chloride 105, Carbon Dioxide 28, Anion Gap 10.1, BUN 18, Creatinine 0.90, Estimated Creat Clear 107, Estimated GFR 86, Est GFR ( Amer) 105, Glucose 124 H, Lactate 1.5, Calcium 9.7, Total Bilirubin 0.9, AST 31, ALT 31, Alkaline Phosphatase 70, Total Protein 7.6, Albumin 4.5, Globulin 3.1, Albumin/Globulin Ratio 1.5, Lipase 34 I & O for Last 24 hours: Intake & Output 06/14/24 06/15/24 06/16/24 06/17/24 23:59 23:59 23:59 23:59 Intake Total 3000 / 3000 Balance 3000 / 3000 Weight 85.275 kg Constitutional Constitutional: mild distress and cooperative *Routine HEENT Exam Head: Present normocephalic and atraumatic Eye: Present EOMI and PERRL ENT: Present mucous membranes moist *Routine Neck Exam Neck: Present supple and full ROM; Absent lymphadenopathy *Routine Respiratory Exam Respiratory: Present CTA bilaterally *Routine Cardiovascular Exam Cardiovascular: Present RRR, Normal S1 and Normal S2 *Routine Abdominal Exam Abdominal: Present soft, tenderness, guarding and wound; Absent normoactive bowel sounds *Routine Rectal Exam Rectal:: deferred *Routine Genitalia Exam Genitalia:: deferred *Routine Extremities Exam Extremities: Absent cyanosis, clubbing or edema *Routine Skin Exam Skin: Present warm and wounds; Absent intact or rash *Routine Neurological Exam Neurological: Present alert, oriented X3, normal reflexes and moving all extremities Routine Psychiatric Exam Psychiatric: Present normal thought process H&P: Result Imaging and Cardiology EKG: Status: image reviewed by me, Preliminary report and final report CT scan - abdomen: Status: image reviewed by me, Preliminary report and final report Assessment and Plan *Assessment and plan (1) SBO (small bowel obstruction): Status: Acute Category: Medical Code(s): K56.609 - Unspecified intestinal obstruction, unspecified as to partial versus complete obstruction (2) S/P exploratory laparotomy: Status: Acute Category: Surgical Code(s): Z98.890 - Other specified postprocedural states (3) CAD (coronary artery disease), [place] coronary artery: Status: Acute Qualifiers: Associated angina: unspecified whether angina present [place] vs. transplanted heart: [place] heart Qualified Code(s): I25.10 - Atherosclerotic heart disease of [place] coronary artery without angina pectoris Category: Medical Code(s): I25.10 - Atherosclerotic heart disease of [place] coronary artery without angina pectoris (4) History of heart attack: Status: Acute Category: Medical Code(s): I25.2 - Old myocardial infarction (5) Depression: Status: Acute Qualifiers: Depression Type: unspecified Qualified Code(s): F32.9 - Major depressive disorder, single episode, unspecified Category: Medical Code(s): F32.9 - Major depressive disorder, single episode, unspecified Plan 58-year-old male with PMHx of CAD s/p stent, open appendectomy, and a prior history of small bowel obstruction managed nonoperatively. He states that he had developed abdominal pain in the mid abdomen about 2 days ago described as cramping. He has had obstipation and not passing gas. CT was showing high grade SBO. He had nausea and some vomiting. patient seen and evaluated post op. exploratory laparotomy with resection of ischemic bowel was conducted. resting comfortable. denied pain. Using a pain pump. Discussed with surgeon. Agreed for admission for inpatient management post op day zero. Plan: -SBO s/p exploratory laparotomy w/ resection: admit patient for med-surg management. post op day zero Surgical team to assist with care. NG tube in place, intermittent suction hanna catheter surgical wound clean dry and intact pain management via cont infusion. wean off cont IV hydration cont IV Unasyn prophylactically NPO. monitor for pain, sepsis and organ dysfunction hold plavix repeat labs in the morning earlier ambulation Chronic conditions CAD s/p stent, Hx of heart attack depression conditions reviewed. stable cont cardiac monitoring medications on hold while he is on NPO SCD for DVT ppx. On famotidine IV for GI protection Full code Rounded on patient after nurse practitioner. Personally examined and interviewed patient. Agree with exam findings and care plan as documented.
[2024-06-17] MEDS: LACTATED RINGERS 1000ML 1,000 ML 125 ML IV (21:14)
[2024-06-17 21:15] LABS: Microscopic,Cath URINE MICROSCOPIC (MICROSCOPIC)
[2024-06-17] MEDS: MORPHINE 10MG/ML 30ML PCA IV (21:15)
[2024-06-17 21:26] LABS: Appearance,Urine/Cath CLEAR (Clear); Bilirubin,Cath Negative (Negative); Blood, Urine/Cath TRACE-I (Negative); Color,Urine/Cath YELLOW (Yellow); Glucose,Urine/Cath (UA) Negative (Negative); Ketones,Urine/Cath Negative (Negative); Leukocyte Esterase,Cath Negative (Negative); Nitrate,Cath Negative (Negative); Protein,Urine/Cath Negative (Negative); Urobilinogen,Cath 0.2 EU/dl (0.2)
[2024-06-17] MEDS: HYDROMORPHONE 2MG/ML SYRINGE 1 MG IV (22:09)
[2024-06-17] MEDS: FAMOTIDINE 20MG/2ML VIAL 20 MG IV (22:12)
[2024-06-18] VITALS (20 sets, daily range): BP systolic 99–144; BP diastolic 50–75; PULSE 62–88; RESP 13–22; TEMP 36.7–37.5; O2SAT 88–96; BMI 25.9
[2024-06-18] MEDS: HYDROMORPHONE 2MG/ML SYRINGE 1 MG IV ×7 (01:01→23:32)
[2024-06-18] MEDS: LACTATED RINGERS 1000ML 1,000 ML 125 ML IV (04:27)
[2024-06-18] MEDS: AMPICILLIN SODIUM/SULBACTAM 3 GM in 0.9 % SODIUM CHLORIDE 100 ML IV ×4 (04:27→22:46)
--- NOTE | 2024-06-18 05:09 | PC.NURSE ---
Addendum entered by Yolanda Ndiaye RN 06/18/24 06:17: Pt 86% on RA when arrived to floor, pt placed on 3 L and easily weaned down to 2L. RA sat this AM 88% Original Note: Pt pleasant and cooperative, A/o x4. Pt arrived to floor with abdominal pain 10/10 and DIRECTOR D[employer] ADVERTISING pump was set up. Pt has been able to use DIRECTOR [employer]VERTISING pump accordingly. Pt has required 3 doses of IV Dilaudid for breakthrough pain during this shift. Pt states DIRECTOR D[employer] ADVERTISING pump brings pain level down to 5/10 and Dilaudid makes pain tolerable. Abdominal midline incision has had a small amount of bleeding during night. On morning assessment, drainage on dsg dry serosang. Ng tube to right nare @ 70cm with minimal output during shift. Eagle in place, emptied 400ml during shift. Eagle did leak into bed due to so pt also unmeasured output. Urine light nasra, clear. Pt got up to chair this AM, tolerated well. at bedside. Call light within reach.
--- NOTE | 2024-06-18 06:26 | P.PN_ITS ---
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 This morning he is without significant complaints other than incisional soreness. No nausea. Exam Data for Last 24 hours Vital signs and Labs for Last 24 Hours: Temp Pulse Resp BP Pulse Ox O2 Del Method O2 Flow Rate 98.7 F 78 19 114/68 92 L Nasal Cannula 2 06/18/24 03:30 06/18/24 06:00 06/18/24 06:00 06/18/24 06:00 06/18/24 06:22 06/18/24 06:22 06/18/24 06:22 Laboratory Results - last 24 hr 06/17/24 12:51: Urine Color Dark yellow, Urine Appearance Clear, Urine pH 6.0, Ur Specific [place] 1.025, Urine Protein Negative, Urine Glucose (UA) Negative, Urine Ketones Negative, Urine Blood Trace-i, Urine Nitrate Negative, Urine Bilirubin Negative, Urine Urobilinogen 1.0, Ur Leukocyte Esterase Negative, Urine RBC Occasional, Urine WBC 3-5, Ur Squamous Epith Cells 3-5, Urine Bacteria Trace, Urine Mucus Trace 06/17/24 13:03: WBC 10.5, RBC 5.41, Hgb 16.9, Hct 50.4, MCV 93.2, MCH 31.2, MCHC 33.5, RDW 13.9, Plt Count 246, MPV 8.3, Neut % (Auto) 83.7 H, Lymph % (Auto) 12.0, [place] % (Auto) 3.2, Eos % (Auto) 0.8, Baso % (Auto) 0.3, Neut # (Auto) 8.8 H, Lymph # (Auto) 1.3, [place] # (Auto) 0.3, Eos # (Auto) 0.1, Baso # (Auto) 0.0, Sodium 139, Potassium 4.1, Chloride 105, Carbon Dioxide 28, Anion Gap 10.1, BUN 18, Creatinine 0.90, Estimated Creat Clear 107, Estimated GFR 86, Est GFR ( Amer) 105, Glucose 124 H, Lactate 1.5, Calcium 9.7, Total Bilirubin 0.9, AST 31, ALT 31, Alkaline Phosphatase 70, Total Protein 7.6, Albumin 4.5, Globulin 3.1, Albumin/Globulin Ratio 1.5, Lipase 34 06/17/24 16:36: Urine Color Yellow, Urine Appearance Clear, Urine pH 6.0, Ur Specific [place] 1.020, Urine Protein Negative, Urine Glucose (UA) Negative, Urine Ketones Negative, Urine Blood Trace-i, Urine Nitrate Negative, Urine Bilirubin Negative, Urine Urobilinogen 0.2, Ur Leukocyte Esterase Negative, Urine RBC 3-5, Urine WBC None, Ur Squamous Epith Cells None, Urine Bacteria None I & O for Last 24 hours: Intake & Output 06/15/24 06/16/24 06/17/24 06/18/24 11:59 11:59 11:59 11:59 Intake Total 3085 / 3085 Balance 3085 / 3085 Weight 181 lb 3.52 oz *Routine Abdominal Exam Abdominal: Present soft and tenderness Comments: Minimal serosanguineous drainage on dressing. Progress Note: A&P Assessment and plan (1) SBO (small bowel obstruction): Status: Acute Assessment and plan: DC Eagle. Increase activity. Continue n.p.o. except for ice chips with nasogastric decompression. (2) S/P exploratory laparotomy: Status: Acute (3) CAD (coronary artery disease), [place] coronary artery: Status: Acute (4) History of heart attack: Status: Acute (5) Depression: Status: Acute
[2024-06-18] MEDS: MORPHINE 10MG/ML 30ML PCA IV (06:28)
[2024-06-18 07:07] LABS: Anion Gap 11.1 mEq/L (5-15); Blood Urea Nitrogen 19 mg/dl (9-20); Calcium 8.3 mg/dl (8.4-10.2); Carbon Dioxide 25 mmol/L (22.0-30.0); Chloride 105 mmol/L (98-107); Creatinine Clearance Estimated 132 mL/min (50-200); Estimated Glomerular Filt Rate 115 ml/min (>60); GFR (African American) 140 ML/MIN (>60); Glucose 115 mg/dl (74-100); Potassium 4.1 mmoL/L (3.5-5.1); Sodium 137 mmol/L (136-145)
--- NOTE | 2024-06-18 07:12 | PC.NURSE ---
Cleared 26.8 from sand screener operator pump
[2024-06-18 08:01] LABS: Basophils % 0.1 % (0.1-2.0); Lymphocytes # 0.7 K/mm3 (0.7-4.5); Lymphocytes % 4.6 % (10-50); Mean Corpuscular Hemoglobin 31.1 pg (27.0-31.2); Mean Corpuscular Volume 94.4 fl (80-94); Mean Platelet Volume 8.6 fl (7.4-10.4); Monocytes # 0.7 K/mm3 (0.1-1.0); Monocytes % 4.4 % (1.7-9.3); Neutrophils # 14.8 K/mm3 (1.8-7.8); Platelet Count 222 K/mm3 (142-424); Red Blood Count 4.45 M/mm3 (4.60-6.20); White Blood Count 16.3 K/mm3 (4.8-10.8)
[2024-06-18 08:09] LABS: MANUAL DIFFERENTIAL MANUAL DIFFERENTIAL (MANUAL DIFF)
[2024-06-18] MEDS: FAMOTIDINE 20MG/2ML VIAL 20 MG IV ×2 (08:45→20:01)
--- NOTE | 2024-06-18 09:48 | P.PNANES_ITS ---
[facility] Anesthesia Record Part II Anesthesia Record Part II Discharge Time: 20:10 Destination: Medical Surgical Department PACU nurse assessment reviewed?: Yes Patient Condition:: Good Anesthesia Complications:: None Swallowing reflex intact?: Yes Airway Patency: Patent Cyanosis?: No Blood Pressure: 134/69 SaO2: 96 Respiratory Rate: 16 Pulse Rate: 88 Temperature: 98.2 F Mental Status: Alert & Oriented Pain level:: 6 Nausea and/or vomitting:: None Intake, IV Amount: 0 Hydration: Adequate
[2024-06-18 09:53] LABS: Lymphocytes % 8 % (10-50); Monocytes % 3 % (2-9); Neutrophils % 89 % (42-76); Total Cells Counted 100
[2024-06-18 09:54] LABS: Platelet Estimate Normal; RBC Morphology Normal
--- NOTE | 2024-06-18 10:05 | EXP.ACUTE.PN ---
Subjective *Date: 06/18/24 *Time: 11:23 Interval history: Stable on room air. No nausea or vomiting. NG tube in place with bilious output. Hypoactive bowel sounds. No gas or bowel movement. Afebrile. Alert and oriented x 4 on exam this morning. White cell count elevated, kidney function electrolytes stable. Medical Exam Vital signs and Labs for Last 24 Hours: Vital Signs Temp Pulse Pulse Resp BP BP Pulse Ox 06/18/24 09:49 16 06/18/24 09:00 06/18/24 08:00 06/18/24 08:00 98.2 F 84 20 113/51 L 91 L 06/18/24 08:00 75 06/18/24 06:36 06/18/24 06:22 92 L 06/18/24 06:15 88 L 06/18/24 06:00 78 19 114/68 92 L 06/18/24 05:00 84 16 99/50 L 94 L 06/18/24 05:00 06/18/24 04:00 77 15 102/64 L 93 L 06/18/24 04:00 78 06/18/24 04:00 93 L 06/18/24 03:30 98.7 F 78 13 112/63 92 L 06/18/24 03:00 06/18/24 02:30 78 14 99/51 L 93 L 06/18/24 01:30 98.2 F 82 18 108/67 L 94 L 06/18/24 00:40 06/18/24 00:30 98.1 F 80 16 107/57 L 95 06/17/24 23:30 83 14 115/64 96 06/17/24 23:08 85 06/17/24 23:00 85 16 120/60 97 06/17/24 22:55 06/17/24 22:30 89 15 121/67 97 06/17/24 22:00 92 H 18 145/80 H 97 06/17/24 21:30 88 20 168/72 H 96 06/17/24 21:15 89 21 148/88 H 96 06/17/24 21:00 06/17/24 21:00 90 23 162/84 H 95 06/17/24 20:45 98.2 F 85 27 H 167/98 H 89 L 06/17/24 20:10 88 16 134/69 96 06/17/24 20:00 97 06/17/24 20:00 85 17 135/61 95 06/17/24 19:50 87 17 142/77 H 94 L 06/17/24 19:47 97.5 F L 90 14 179/79 H 06/17/24 19:40 97.5 F L 92 H 18 179/79 H 93 L 06/17/24 16:24 98.4 F 77 14 139/72 06/17/24 16:00 61 146/73 H 96 06/17/24 15:30 75 133/75 95 06/17/24 15:25 60 129/75 95 06/17/24 15:00 63 127/84 96 06/17/24 14:30 63 132/72 95 06/17/24 14:01 66 127/67 95 06/17/24 13:31 76 144/88 H 96 06/17/24 13:16 98.4 F 71 16 142/92 H 96 06/17/24 12:55 70 142/92 H 96 O2 Del Method O2 Flow Rate 06/18/24 09:49 06/18/24 09:00 Nasal Cannula 2 06/18/24 08:00 Nasal Cannula 2 06/18/24 08:00 Nasal Cannula 2 06/18/24 08:00 06/18/24 06:36 Nasal Cannula 2 06/18/24 06:22 Nasal Cannula 2 06/18/24 06:15 Room Air 06/18/24 06:00 Nasal Cannula 2 06/18/24 05:00 Nasal Cannula 2 06/18/24 05:00 Nasal Cannula 2 06/18/24 04:00 Nasal Cannula 06/18/24 04:00 06/18/24 04:00 Nasal Cannula 2 06/18/24 03:30 Nasal Cannula 2 06/18/24 03:00 Nasal Cannula 2 06/18/24 02:30 Nasal Cannula 2 06/18/24 01:30 Nasal Cannula 2 06/18/24 00:40 Nasal Cannula 2 06/18/24 00:30 Nasal Cannula 2 06/17/24 23:30 Nasal Cannula 3 06/17/24 23:08 06/17/24 23:00 Nasal Cannula 3 06/17/24 22:55 Nasal Cannula 3 06/17/24 22:30 Nasal Cannula 3 06/17/24 22:00 Nasal Cannula 3 06/17/24 21:30 Nasal Cannula 3 06/17/24 21:15 Nasal Cannula 3 06/17/24 21:00 Nasal Cannula 3 06/17/24 21:00 Nasal Cannula 3 06/17/24 20:45 Room Air 06/17/24 20:10 Room Air 06/17/24 20:00 Nasal Cannula 3 06/17/24 20:00 Room Air 06/17/24 19:50 Room Air 06/17/24 19:47 06/17/24 19:40 Room Air 06/17/24 16:24 06/17/24 16:00 Room Air 06/17/24 15:30 Room Air 06/17/24 15:25 Room Air 06/17/24 15:00 Room Air 06/17/24 14:30 Room Air 06/17/24 14:01 Room Air 06/17/24 13:31 Room Air 06/17/24 13:16 Room Air 06/17/24 12:55 Room Air Intake and Output 06/17/24 06/18/24 06/18/24 23:59 07:59 15:59 Intake Total 3000 / 3085 85 / 1472 1387 / 1472 Balance 3000 / 3085 85 / 1472 1387 / 1472 Intake: Intake, Total IV Amount 3000 / 3085 85 / 1472 1387 / 1472 Ampicillin Sodium/Sulbactam 3 85 / 85 gm In 0.9 % Sodium Chloride 100 ml @ 200 mls/hr IV Q6H [facility] Rx# :[id number] Lactated Ringers 1000ML 1,000 1387 / 1387 ml @ 125 mls/hr IV .Q8H [facility] Rx# :[id number] Other: Weight 82.2 kg Patient Weight 06/18/24 23:59 Weight 82.2 kg Laboratory Results - last 24 hr 06/17/24 12:51: Urine Color Dark yellow, Urine Appearance Clear, Urine pH 6.0, Ur Specific [place] 1.025, Urine Protein Negative, Urine Glucose (UA) Negative, Urine Ketones Negative, Urine Blood Trace-i, Urine Nitrate Negative, Urine Bilirubin Negative, Urine Urobilinogen 1.0, Ur Leukocyte Esterase Negative, Urine RBC Occasional, Urine WBC 3-5, Ur Squamous Epith Cells 3-5, Urine Bacteria Trace, Urine Mucus Trace 06/17/24 13:03: WBC 10.5, RBC 5.41, Hgb 16.9, Hct 50.4, MCV 93.2, MCH 31.2, MCHC 33.5, RDW 13.9, Plt Count 246, MPV 8.3, Neut % (Auto) 83.7 H, Lymph % (Auto) 12.0, [place] % (Auto) 3.2, Eos % (Auto) 0.8, Baso % (Auto) 0.3, Neut # (Auto) 8.8 H, Lymph # (Auto) 1.3, [place] # (Auto) 0.3, Eos # (Auto) 0.1, Baso # (Auto) 0.0, Sodium 139, Potassium 4.1, Chloride 105, Carbon Dioxide 28, Anion Gap 10.1, BUN 18, Creatinine 0.90, Estimated Creat Clear 107, Estimated GFR 86, Est GFR ( Amer) 105, Glucose 124 H, Lactate 1.5, Calcium 9.7, Total Bilirubin 0.9, AST 31, ALT 31, Alkaline Phosphatase 70, Total Protein 7.6, Albumin 4.5, Globulin 3.1, Albumin/Globulin Ratio 1.5, Lipase 34 06/17/24 16:36: Urine Color Yellow, Urine Appearance Clear, Urine pH 6.0, Ur Specific [place] 1.020, Urine Protein Negative, Urine Glucose (UA) Negative, Urine Ketones Negative, Urine Blood Trace-i, Urine Nitrate Negative, Urine Bilirubin Negative, Urine Urobilinogen 0.2, Ur Leukocyte Esterase Negative, Urine RBC 3-5, Urine WBC None, Ur Squamous Epith Cells None, Urine Bacteria None 06/18/24 05:30: WBC 16.3 H D, RBC 4.45 L, Hct 42.0, MCV 94.4 H, MCH 31.1, MCHC 33.0, RDW 14.0, Plt Count 222, MPV 8.6, Neut % (Auto) 91.0 H, Lymph % (Auto) 4.6 L, [place] % (Auto) 4.4, Eos % (Auto) 0.0 L, Baso % (Auto) 0.1, Neut # (Auto) 14.8 H, Lymph # (Auto) 0.7, [place] # (Auto) 0.7, Eos # (Auto) 0.0, Baso # (Auto) 0.0, Total Counted 100, Neutrophils % (Manual) 89 H, Lymphocytes % (Manual) 8 L, Monocytes % (Manual) 3, Platelet Estimate Normal, RBC Morphology Normal, Sodium 137, Potassium 4.1, Chloride 105, Carbon Dioxide 25, Anion Gap 11.1, BUN 19, Creatinine 0.70 D, Estimated Creat Clear 132, Estimated GFR 115, Est GFR ( Amer) 140 D, Glucose 115 H, Calcium 8.3 L I & O for Labs for Last 24 Hours: Intake & Output 06/15/24 06/16/24 06/17/24 06/18/24 23:59 23:59 23:59 23:59 Intake Total 3000 / 3085 1472 / 1472 Balance 3000 / 3085 1472 / 1472 Weight 85.275 kg 82.2 kg Constitutional: Present no acute distress, average body habitus and cooperative Head: Present atraumatic and normocephalic ENT: Present normal exam Comment:: NG in nose Respiratory: Present CTA bilaterally; Absent rhonchi, wheezes or crackles Cardiac: Present Reg Rate and Rhythm GI: Present soft, tenderness (Diffuse, worse over surgical incisions) and hypoactive bowel sounds; Absent distention Skin: Present intact; Absent cyanosis Neuro: Present alert, awake, oriented x 3 and moves all extremities Assessment and Plan *Assessment and plan (1) SBO (small bowel obstruction): Status: Acute Category: Medical Code(s): K56.609 - Unspecified intestinal obstruction, unspecified as to partial versus complete obstruction (2) S/P exploratory laparotomy: Status: Acute Category: Surgical Code(s): Z98.890 - Other specified postprocedural states (3) CAD (coronary artery disease), [place] coronary artery: Status: Acute Qualifiers: Associated angina: unspecified whether angina present [place] vs. transplanted heart: [place] heart Qualified Code(s): I25.10 - Atherosclerotic heart disease of [place] coronary artery without angina pectoris Category: Medical Code(s): I25.10 - Atherosclerotic heart disease of [place] coronary artery without angina pectoris (4) History of heart attack: Status: Acute Category: Medical Code(s): I25.2 - Old myocardial infarction (5) Depression: Status: Acute Qualifiers: Depression Type: unspecified Qualified Code(s): F32.9 - Major depressive disorder, single episode, unspecified Category: Medical Code(s): F32.9 - Major depressive disorder, single episode, unspecified Plan 58-year-old male with PMHx of CAD s/p stent, open appendectomy, and a prior history of small bowel obstruction managed nonoperatively. He states that he had developed abdominal pain in the mid abdomen about 2 days ago described as cramping. He has had obstipation and not passing gas. CT was showing high grade SBO. He had nausea and some vomiting. patient seen and evaluated post op. exploratory laparotomy with resection of ischemic bowel was conducted. resting comfortable. denied pain. Using a pain pump. Continue NPO. Awaiting for bowel movements. Continues to require inpatient management. Problems addressed as follows: SBO s/p exploratory laparotomy w/ resection: Postop day 1 -Reviewed surgery's documentation, continue NPO. BOTTLE LINE WORKER for pain. Awaiting bowels to move prior to considering diet. -Continue NG to low wall suction. -Continue BOTTLE LINE WORKER pump, monitoring for toxicity -Continue prophylactic Unasyn 3 g every 6 hours - hold plavix -White cell count elevated at 16, likely reactive. Repeat CBC, CMP, magnesium ordered for the morning. Potassium 4.1, kidney function with BUN 19, creatinine 0.7. Chronic conditions CAD s/p stent, Hx of heart attack depression Holding medications while NPO. Will resume when appropriate SCD for DVT ppx famotidine IV for GI protection Full code
[2024-06-18 10:11] LABS: Hemoglobin 13.8 g/dL (14.1-18.0)
[2024-06-18] MEDS: LACTATED RINGERS 1000ML 1,000 ML 25 ML IV (16:21)
--- NOTE | 2024-06-18 19:16 | PC.NURSE ---
VS stable, patient remained on 2LNC. Abdomen dressing in place, drainage noted at bottom of bandage, Dr. Nation aware. Patient able to use urinal after hanna d/c'd. PRODUCTION MACHINE COMPUTER OPERATOR pump used 8mg during shift, prn dilaudid given for breakthrough pain and relief noted. Patient instructed on how to use incentive spirometer and able to demonstrate proper use.
[2024-06-18] MEDS: SODIUM CHLORIDE 0.9% 10ML VIAL 8 ML IV (20:01)
[2024-06-19] VITALS (9 sets, daily range): BP systolic 113–156; BP diastolic 63–89; PULSE 71–80; RESP 16–22; TEMP 36.6–37.4; O2SAT 90–95; BMI 28.6
[2024-06-19] MEDS: HYDROMORPHONE 2MG/ML SYRINGE 1 MG IV ×2 (02:04→15:03)
[2024-06-19] MEDS: AMPICILLIN SODIUM/SULBACTAM 3 GM in 0.9 % SODIUM CHLORIDE 100 ML IV ×4 (04:43→21:02)
--- NOTE | 2024-06-19 05:39 | PC.NURSE ---
LPN MEDICAL ASSISTANT cleared for the shift, 19 mg used this shift
--- NOTE | 2024-06-19 08:03 | P.PN_ITS ---
Subjective *Date: 06/19/24 *Time: 10:11 Interval history: Having some abdominal pain this morning. No nausea or vomiting. No bowel movement or gas. Philipp some rumbling yesterday in his stomach, none today. Afebrile overnight. Eating ice chips. Medical Exam Vital signs and Labs for Last 24 Hours: Vital Signs Temp Pulse Pulse Resp BP Pulse Ox O2 Del Method 06/19/24 06:50 Nasal Cannula 06/19/24 06:00 73 18 134/76 94 L Nasal Cannula 06/19/24 05:00 Nasal Cannula 06/19/24 04:00 98.6 F 72 16 137/76 95 Nasal Cannula 06/19/24 04:00 75 18 118/66 93 L Nasal Cannula 06/19/24 03:00 Nasal Cannula 06/19/24 02:00 75 18 144/76 H 92 L Nasal Cannula 06/19/24 01:00 Nasal Cannula 06/19/24 00:00 99.3 F 80 18 113/63 92 L 06/18/24 23:00 Nasal Cannula 06/18/24 22:00 62 18 144/74 H 92 L Nasal Cannula 06/18/24 21:00 Nasal Cannula 06/18/24 20:00 80 06/18/24 20:00 Nasal Cannula 06/18/24 19:27 99.5 F 81 21 125/65 91 L 06/18/24 19:18 73 20 130/71 95 Nasal Cannula 06/18/24 19:00 Room Air 06/18/24 18:00 98.3 F 73 18 135/72 94 L Nasal Cannula 06/18/24 17:00 Room Air 06/18/24 16:00 98.6 F 72 18 130/75 94 L Nasal Cannula 06/18/24 16:00 74 06/18/24 15:00 Nasal Cannula 06/18/24 14:00 98.4 F 06/18/24 13:00 Nasal Cannula 06/18/24 12:00 80 06/18/24 12:00 76 22 122/66 93 L Nasal Cannula 06/18/24 11:05 Nasal Cannula 06/18/24 10:00 72 18 121/60 91 L Nasal Cannula 06/18/24 09:49 16 06/18/24 09:00 Nasal Cannula O2 Flow Rate 06/19/24 06:50 2 06/19/24 06:00 2 06/19/24 05:00 2 06/19/24 04:00 06/19/24 04:00 2 06/19/24 03:00 2 06/19/24 02:00 2 06/19/24 01:00 2 06/19/24 00:00 06/18/24 23:00 2 06/18/24 22:00 2 06/18/24 21:00 2 06/18/24 20:00 06/18/24 20:00 2 06/18/24 19:27 06/18/24 19:18 2 06/18/24 19:00 06/18/24 18:00 1 06/18/24 17:00 06/18/24 16:00 1 06/18/24 16:00 06/18/24 15:00 2 06/18/24 14:00 06/18/24 13:00 2 06/18/24 12:00 06/18/24 12:00 3 06/18/24 11:05 2 06/18/24 10:00 2 06/18/24 09:49 06/18/24 09:00 2 Intake and Output 06/18/24 06/19/24 06/19/24 23:59 07:59 15:59 Intake Total 664 / 2136 455 / 455 Output Total 725 / 875 Balance -61 / 1261 455 / 455 Intake: Intake, Total IV Amount 664 / 2136 455 / 455 Ampicillin Sodium/Sulbactam 3 100 / 185 200 / 200 gm In 0.9 % Sodium Chloride 100 ml @ 200 mls/hr IV Q6H [facility] Rx# :[id number] Lactated Ringers 1000ML 1,000 564 / 1951 ml @ 125 mls/hr IV .Q8H [facility] Rx# :[id number] Lactated Ringers 1000ML 1,000 255 / 255 ml @ 25 mls/hr IV .Q25H [facility] Rx# :[id number] Output: Output, Urine Amount 325 / 475 Output, Gastric Drainage Amount 400 / 400 Right Nare 400 / 400 Other: Number of Unmeasured Voids 0 Weight 90.809 kg Patient Weight 06/19/24 23:59 Weight 90.809 kg Laboratory Results - last 24 hr 06/18/24 05:30: WBC 16.3 H D, RBC 4.45 L, Hgb 13.8 L D, Hct 42.0, MCV 94.4 H, MCH 31.1, MCHC 33.0, RDW 14.0, Plt Count 222, MPV 8.6, Neut % (Auto) 91.0 H, Lymph % (Auto) 4.6 L, [place] % (Auto) 4.4, Eos % (Auto) 0.0 L, Baso % (Auto) 0.1, Neut # (Auto) 14.8 H, Lymph # (Auto) 0.7, [place] # (Auto) 0.7, Eos # (Auto) 0.0, Baso # (Auto) 0.0, Total Counted 100, Neutrophils % (Manual) 89 H, Lymphocytes % (Manual) 8 L, Monocytes % (Manual) 3, Platelet Estimate Normal, RBC Morphology Normal I & O for Labs for Last 24 Hours: Intake & Output 06/16/24 06/17/24 06/18/24 06/19/24 23:59 23:59 23:59 23:59 Intake Total 3000 / 3085 2136 / 2136 455 / 455 Output Total 875 / 875 Balance 3000 / 3085 1261 / 1261 455 / 455 Weight 85.275 kg 82.2 kg 90.809 kg Constitutional: Present no acute distress, average body habitus and cooperative Head: Present atraumatic and normocephalic ENT: Present normal exam Comment:: NG in nose Respiratory: Present CTA bilaterally; Absent rhonchi, wheezes or crackles Cardiac: Present Reg Rate and Rhythm GI: Present soft, tenderness (Diffuse, worse over surgical incisions) and hypoactive bowel sounds; Absent distention Skin: Present intact; Absent cyanosis Neuro: Present alert, awake, oriented x 3 and moves all extremities Assessment and Plan *Assessment and plan (1) SBO (small bowel obstruction): Status: Acute Category: Medical Code(s): K56.609 - Unspecified intestinal obstruction, unspecified as to partial versus complete obstruction (2) S/P exploratory laparotomy: Status: Acute Category: Surgical Code(s): Z98.890 - Other specified postprocedural states (3) CAD (coronary artery disease), [place] coronary artery: Status: Acute Qualifiers: Associated angina: unspecified whether angina present [place] vs. transplanted heart: [place] heart Qualified Code(s): I25.10 - Atherosclerotic heart disease of [place] coronary artery without angina pectoris Category: Medical Code(s): I25.10 - Atherosclerotic heart disease of [place] coronary artery without angina pectoris (4) History of heart attack: Status: Acute Category: Medical Code(s): I25.2 - Old myocardial infarction (5) Depression: Status: Acute Qualifiers: Depression Type: unspecified Qualified Code(s): F32.9 - Major depressive disorder, single episode, unspecified Category: Medical Code(s): F32.9 - Major depressive disorder, single episode, unspecified Plan 58-year-old male with PMHx of CAD s/p stent, open appendectomy, and a prior history of small bowel obstruction managed nonoperatively. He states that he had developed abdominal pain in the mid abdomen about 2 days ago described as cramping. He has had obstipation and not passing gas. CT was showing high grade SBO. He had nausea and some vomiting. patient seen and evaluated post op. exploratory laparotomy with resection of ischemic bowel was conducted. resting comfortable. Pain responding to SURGICAL SERVICES ASST. Continue NPO. Awaiting for bowel movements. Continues to require inpatient management. Problems addressed as follows: SBO s/p exploratory laparotomy w/ resection: Postop day 2 -Discussed case with surgery, continue NPO. SURGICAL SERVICES ASST for pain. Awaiting bowels to move prior to considering diet. -Continue NG to low wall suction. -Continue SURGICAL SERVICES ASST pump, monitoring for toxicity -Continue prophylactic Unasyn 3 g every 6 hours - hold plavix -White cell count improved to 11, hemoglobin 12. Repeat CBC ordered for the morning along with CMP, magnesium. - Electrolytes and kidney function remain normal. BUN 19, creatinine 0.7, sodium 136, potassium 4, glucose 103. Chronic conditions CAD s/p stent, Hx of heart attack depression Holding medications while NPO. Will resume when appropriate SCD for DVT ppx famotidine IV for GI protection Full code
[2024-06-19] MEDS: FAMOTIDINE 20MG/2ML VIAL 20 MG IV ×2 (08:12→20:07)
--- NOTE | 2024-06-19 08:54 | EXP.SURG.PN ---
Subjective Patient reports: no new complaints, no flatus and no bowel movement Narrative: Tolerating sips/chips Exam Data for Last 24 hours Vital signs and Labs for Last 24 Hours: Temp Pulse Resp BP Pulse Ox O2 Del Method O2 Flow Rate 98.4 F 75 19 139/71 94 L Nasal Cannula 2 06/19/24 08:00 06/19/24 08:00 06/19/24 08:00 06/19/24 08:00 06/19/24 08:00 06/19/24 08:00 06/19/24 08:00 Laboratory Results - last 24 hr 06/18/24 05:30: Hgb 13.8 L D, Total Counted 100, Neutrophils % (Manual) 89 H, Lymphocytes % (Manual) 8 L, Monocytes % (Manual) 3, Platelet Estimate Normal, RBC Morphology Normal I & O for Last 24 hours: Intake & Output 06/16/24 06/17/24 06/18/24 06/19/24 11:59 11:59 11:59 11:59 Intake Total 4472 / 4472 1119 / 1119 Output Total 875 / 875 Balance 4472 / 4472 244 / 244 Weight 181 lb 3.52 oz 200 lb 3.2 oz Constitutional Constitutional: no acute distress *Routine Respiratory Exam Respiratory: Absent respiratory distress *Routine Cardiovascular Exam Cardiovascular: Absent tachycardia *Routine Abdominal Exam Abdominal: Present soft and tenderness Comments: Incision clean, dry, and intact. No erythema. Progress Note: A&P Assessment and plan (1) SBO (small bowel obstruction): Status: Acute (2) S/P exploratory laparotomy: Status: Acute Assessment and Plan Assessment and Plan for All Diagnoses:: Await return of bowel function Continue nasogastric decompression for now Increase ambulation
[2024-06-19 09:51] LABS: Basophils % 0.1 % (0.1-2.0); Eosinophils # 0.1 K/mm3 (0.0-0.4); Eosinophils % 1.1 % (0.1-12.0); Hematocrit 32.6 % (42.0-52.0); Hemoglobin 12.1 g/dL (14.1-18.0); Lymphocytes # 1.1 K/mm3 (0.7-4.5); Lymphocytes % 9.3 % (10-50); Mean Corpuscular HGB Conc 37.1 g/dL (31.8-35.4); Mean Corpuscular Hemoglobin 35.2 pg (27.0-31.2); Mean Platelet Volume 8.9 fl (7.4-10.4); Monocytes # 0.4 K/mm3 (0.1-1.0); Monocytes % 3.2 % (1.7-9.3); Neutrophils # 9.8 K/mm3 (1.8-7.8); Neutrophils % 86.3 % (37.0-80.0); Platelet Count 172 K/mm3 (142-424); Red Blood Count 3.43 M/mm3 (4.60-6.20); Red Cell Distribution Width 14.1 % (11.5-17.5); White Blood Count 11.4 K/mm3 (4.8-10.8)
[2024-06-19 09:53] LABS: MANUAL DIFFERENTIAL MANUAL DIFFERENTIAL (MANUAL DIFF)
[2024-06-19 10:00] LABS: Alanine Aminotransferase 23 U/L (12-78); Albumin Level 3.2 g/dl (3.5-5.0); Albumin/Globulin Ratio 1.2 (1.1-1.8); Alkaline Phosphatase 45 U/L (38-126); Aspartate Amino Transferase 26 U/L (17-59); Bilirubin,Total 0.8 mg/dl (0.2-1.3); Blood Urea Nitrogen 19 mg/dl (9-20); Calcium 8.7 mg/dl (8.4-10.2); Carbon Dioxide 26 mmol/L (22.0-30.0); Chloride 107 mmol/L (98-107); Creatinine Clearance Estimated 146 mL/min (50-200); Estimated Glomerular Filt Rate 115 ml/min (>60); GFR (African American) 140 ML/MIN (>60); Globulin 2.7 g/dL (1.3-3.2); Glucose 103 mg/dl (74-100); Sodium 136 mmol/L (136-145); Total Protein,Serum 5.9 g/dl (6.3-8.2)
[2024-06-19 10:34] LABS: Lymphocytes % 8 % (10-50); Monocytes % 2 % (2-9); Neutrophils % 90 % (42-76); Platelet Estimate Normal; RBC Morphology Normal; Total Cells Counted 100
[2024-06-19] MEDS: LACTATED RINGERS 1000ML 1,000 ML 25 ML IV (14:03)
--- NOTE | 2024-06-19 17:02 | PC.NURSE ---
Addendum entered by Lalito Gandhi RN 06/19/24 17:08: 7 MG CLEARED FROM SQL DEVELOPER Original Note: AOX4, CONTINUES TO REQUIRE 2LNC FOR O2 SUPPORT. PT WAS ABLE TO TOLERATE ROOM AIR FOR ABOUT 2 HOURS BUT DESATS WHEN SLEEPING OR RESTING IN BED. ENCOURAGED INCENTIVE SPIROMETER Q1H WHILE AWAKE. PT DID AMBULATE ABOUT 200 FEET IN HALLWAY AND TOLERATED WELL. PER PT PAIN IS WELL CONTROLLED WITH SQL DEVELOPER PUMP.
[2024-06-19] MEDS: SODIUM CHLORIDE 0.9% 10ML VIAL 8 ML IV (20:07)
[2024-06-20] VITALS (14 sets, daily range): BP systolic 128–157; BP diastolic 70–83; PULSE 58–89; RESP 15–25; TEMP 36.7–37.4; O2SAT 90–95; BMI 27.9
[2024-06-20] MEDS: MORPHINE 10MG/ML 30ML PCA IV (00:31)
[2024-06-20] MEDS: AMPICILLIN SODIUM/SULBACTAM 3 GM in 0.9 % SODIUM CHLORIDE 100 ML IV ×4 (03:41→21:02)
--- NOTE | 2024-06-20 04:56 | PC.NURSE ---
Pt alert and oriented. Ambulated in the hallway, 4 trips total at beginning of shift without difficulty. Pt states he is mostly sore. Midline incision open to air, CDI. Uses urinal. Hypoactive bowel sounds throughout. 1L NC. O2 sat >90%. Pt has been sweating on and off throughout the shift, states he sweats like this at home. Temperature taken, no fever. TELEPHONIC CASE MANAGER pump in use, 9mg cleared this shift. NG to R nare @ 70 to cont. low wall suction, draining light greenish fluid. Patient states he has had no gas. Has rested well throughout night. Call light in reach.
--- NOTE | 2024-06-20 07:17 | EXP.ACUTE.PN ---
Subjective *Date: 06/20/24 *Time: 09:51 Interval history: Denies nausea or chest pain. Still on 1 L oxygen. No gas or bowel movement but feeling some rumbles in his belly. Afebrile overnight. Using PHYSICIAN OFFICE ASSISTANT and frequently overnight Medical Exam Vital signs and Labs for Last 24 Hours: Vital Signs Temp Pulse Pulse Resp BP Pulse Ox O2 Del Method 06/20/24 06:44 Nasal Cannula 06/20/24 05:58 75 15 143/80 H 94 L Nasal Cannula 06/20/24 04:55 Nasal Cannula 06/20/24 04:00 98.4 F 71 24 135/79 95 Nasal Cannula 06/20/24 04:00 70 06/20/24 03:00 Nasal Cannula 06/20/24 00:53 Nasal Cannula 06/20/24 00:00 99.0 F 75 25 H 157/83 H 93 L Nasal Cannula 06/20/24 00:00 80 06/19/24 22:54 Nasal Cannula 06/19/24 20:59 Nasal Cannula 06/19/24 20:00 80 06/19/24 20:00 Nasal Cannula 06/19/24 20:00 98.6 F 76 22 156/75 H 95 Nasal Cannula 06/19/24 18:29 Nasal Cannula 06/19/24 18:00 98.2 F 06/19/24 17:00 Nasal Cannula 06/19/24 16:00 80 06/19/24 16:00 97.9 F 75 18 155/89 H 95 Nasal Cannula 06/19/24 15:00 Nasal Cannula 06/19/24 13:00 Nasal Cannula 06/19/24 12:00 98.9 F 71 18 140/72 90 L Nasal Cannula 06/19/24 11:00 Room Air 06/19/24 09:00 Nasal Cannula 06/19/24 08:00 Nasal Cannula 06/19/24 08:00 98.4 F 75 19 139/71 94 L Nasal Cannula O2 Flow Rate 06/20/24 06:44 1 06/20/24 05:58 1 06/20/24 04:55 1 06/20/24 04:00 1 06/20/24 04:00 06/20/24 03:00 1 06/20/24 00:53 1 06/20/24 00:00 2 06/20/24 00:00 07/27/24 22:54 1 06/19/24 20:59 2 06/19/24 20:00 06/19/24 20:00 2 06/19/24 20:00 2 06/19/24 18:29 2 06/19/24 18:00 06/19/24 17:00 2 06/19/24 16:00 06/19/24 16:00 2 06/19/24 15:00 2 06/19/24 13:00 2 06/19/24 12:00 2 06/19/24 11:00 06/19/24 09:00 2 06/19/24 08:00 2 06/19/24 08:00 2 Intake and Output 06/19/24 06/19/24 06/20/24 15:59 23:59 07:59 Intake Total 0 / 455 0 / 455 1058 / 1058 Output Total 700 / 2200 1375 / 2200 875 / 875 Balance -700 / -1745 -1375 / -1745 183 / 183 Intake: Intake, Oral Amount 0 / 0 0 / 0 Intake, Oral Supplement Amount 0 / 0 0 / 0 Intake, Total IV Amount 1058 / 1058 Ampicillin Sodium/Sulbactam 3 200 / 200 gm In 0.9 % Sodium Chloride 100 ml @ 200 mls/hr IV Q6H [facility] Rx# :[id number] Lactated Ringers 1000ML 1,000 858 / 858 ml @ 25 mls/hr IV .Q25H [facility] Rx# :[id number] Output: Output, Urine Amount 700 / 1775 950 / 1775 525 / 525 Output, Gastric Drainage Amount 425 / 425 350 / 350 Right Nare 425 / 425 350 / 350 Other: Number of Voids 0 Number of Unmeasured Voids 0 0 Weight 88.451 kg Patient Weight 06/20/24 23:59 Weight 88.451 kg Laboratory Results - last 24 hr 06/19/24 08:00: WBC 11.4 H D, RBC 3.43 L, Hgb 12.1 L, Hct 32.6 L, MCV 95.0 H, MCH 35.2 H, MCHC 37.1 H, RDW 14.1, Plt Count 172, MPV 8.9, Neut % (Auto) 86.3 H, Lymph % (Auto) 9.3 L, [place] % (Auto) 3.2, Eos % (Auto) 1.1, Baso % (Auto) 0.1, Neut # (Auto) 9.8 H, Lymph # (Auto) 1.1, [place] # (Auto) 0.4, Eos # (Auto) 0.1, Baso # (Auto) 0.0, Total Counted 100, Neutrophils % (Manual) 90 H, Lymphocytes % (Manual) 8 L, Monocytes % (Manual) 2, Platelet Estimate Normal, RBC Morphology Normal 06/19/24 09:45: Sodium 136, Potassium 4.0, Chloride 107, Carbon Dioxide 26, Anion Gap 7.0, BUN 19, Creatinine 0.70, Estimated Creat Clear 146, Estimated GFR 115, Est GFR ( Amer) 140, Glucose 103 H, Calcium 8.7, Magnesium 2.0, Total Bilirubin 0.8, AST 26, ALT 23 D, Alkaline Phosphatase 45, Total Protein 5.9 L, Albumin 3.2 L, Globulin 2.7, Albumin/Globulin Ratio 1.2 I & O for Labs for Last 24 Hours: Intake & Output 06/17/24 06/18/24 06/19/24 06/20/24 23:59 23:59 23:59 23:59 Intake Total 3000 / 3085 2136 / 2136 455 / 455 1058 / 1058 Output Total 875 / 875 2075 / 2200 875 / 875 Balance 3000 / 3085 1261 / 1261 -1620 / -1745 183 / 183 Weight 85.275 kg 82.2 kg 90.809 kg 88.451 kg Constitutional: Present no acute distress, average body habitus and cooperative Head: Present atraumatic and normocephalic ENT: Present normal exam Comment:: NG in nose Respiratory: Present CTA bilaterally and wheezes; Absent rhonchi or crackles Cardiac: Present Reg Rate and Rhythm GI: Present soft, tenderness (Diffuse, worse over surgical incisions; interval improvement however) and normal bowel sounds; Absent distention Skin: Present intact; Absent cyanosis Neuro: Present alert, awake, oriented x 3 and moves all extremities Assessment and Plan *Assessment and plan (1) SBO (small bowel obstruction): Status: Acute Category: Medical Code(s): K56.609 - Unspecified intestinal obstruction, unspecified as to partial versus complete obstruction (2) S/P exploratory laparotomy: Status: Acute Category: Surgical Code(s): Z98.890 - Other specified postprocedural states (3) CAD (coronary artery disease), [place] coronary artery: Status: Acute Qualifiers: [place] vs. transplanted heart: [place] heart Associated angina: unspecified whether angina present Qualified Code(s): I25.10 - Atherosclerotic heart disease of [place] coronary artery without angina pectoris Category: Medical Code(s): I25.10 - Atherosclerotic heart disease of [place] coronary artery without angina pectoris (4) History of heart attack: Status: Acute Category: Medical Code(s): I25.2 - Old myocardial infarction (5) Depression: Status: Acute Qualifiers: Depression Type: unspecified Qualified Code(s): F32.9 - Major depressive disorder, single episode, unspecified Category: Medical Code(s): F32.9 - Major depressive disorder, single episode, unspecified Plan 58-year-old male with PMHx of CAD s/p stent, open appendectomy, and a prior history of small bowel obstruction managed nonoperatively. He states that he had developed abdominal pain in the mid abdomen about 2 days ago described as cramping. He has had obstipation and not passing gas. CT was showing high grade SBO. He had nausea and some vomiting. patient seen and evaluated post op. exploratory laparotomy with resection of ischemic bowel was conducted. resting comfortable. Pain responding to PHYSICIAN OFFICE ASSISTANT. Continue NPO. Awaiting for bowel movements. Continues to require inpatient management. Problems addressed as follows: SBO s/p exploratory laparotomy w/ resection: Postop day 3 -Discussed case with surgery, will continue only ice chips. Will place NG to drain bag. Ambulate as able. Awaiting bowel movement prior to advancing diet. Continue NPO. PHYSICIAN OFFICE ASSISTANT for pain. -Continue PHYSICIAN OFFICE ASSISTANT pump, monitoring for toxicity -Continue prophylactic Unasyn 3 g every 6 hours - hold plavix - White cell count improved to 11, hemoglobin 12. Repeat CBC ordered for the morning along with CMP, magnesium. - Electrolytes and kidney function remain normal. BUN 17, creatinine 0.7, sodium 135, potassium 4, glucose 84 -Will administer 1 L of LR today. Patient is a smoker. Has some wheezing on exam. Still on 1 L oxygen, no oxygen use at home. Will initiate DuoNebs every 6 hours scheduled. Wean oxygen for O2 sats greater 90%. Chronic conditions CAD s/p stent, Hx of heart attack depression Holding medications while NPO. Will resume when appropriate SCD for DVT ppx famotidine IV for GI protection Full code
[2024-06-20 07:18] LABS: Magnesium 2.2 mg/dl (1.6-2.3)
[2024-06-20] MEDS: LACTATED RINGERS 1000ML 1,000 ML 250 ML IV (07:55)
[2024-06-20 07:58] LABS: Albumin Level 3.3 g/dl (3.5-5.0); Chloride 109 mmol/L (98-107); Sodium 135 mmol/L (136-145)
[2024-06-20 08:01] LABS: Alanine Aminotransferase 15 U/L (12-78); Albumin/Globulin Ratio 1.2 (1.1-1.8); Alkaline Phosphatase 66 U/L (38-126); Aspartate Amino Transferase 48 U/L (17-59); Bilirubin,Total 0.9 mg/dl (0.2-1.3); Blood Urea Nitrogen 17 mg/dl (9-20); Calcium 8.3 mg/dl (8.4-10.2); Carbon Dioxide 18 mmol/L (22.0-30.0); Creatinine Clearance Estimated 142 mL/min (50-200); Estimated Glomerular Filt Rate 115 ml/min (>60); GFR (African American) 140 ML/MIN (>60); Globulin 2.7 g/dL (1.3-3.2); Glucose 84 mg/dl (74-100)
[2024-06-20] MEDS: FAMOTIDINE 20MG/2ML VIAL 20 MG IV ×2 (09:32→20:47)
--- NOTE | 2024-06-20 10:10 | P.PN_ITS ---
Subjective Patient reports: feels better, no flatus and no bowel movement Narrative: He states that he ambulated in hallway a couple of times yesterday and that he feels like things are moving through but no gas yet . Exam Data for Last 24 hours Vital signs and Labs for Last 24 Hours: Temp Pulse Resp BP Pulse Ox O2 Del Method O2 Flow Rate 98.4 F 75 15 143/80 H 94 L Nasal Cannula 1 06/20/24 08:00 06/20/24 05:58 06/20/24 05:58 06/20/24 05:58 06/20/24 05:58 06/20/24 08:30 06/20/24 08:30 Laboratory Results - last 24 hr 06/19/24 08:00: Total Counted 100, Neutrophils % (Manual) 90 H, Lymphocytes % (Manual) 8 L, Monocytes % (Manual) 2, Platelet Estimate Normal, RBC Morphology Normal 06/20/24 06:22: Sodium 135 L, Potassium 4.0, Chloride 109 H, Carbon Dioxide 18 L , Anion Gap 12.0, BUN 17, Creatinine 0.70, Estimated Creat Clear 142, Estimated GFR 115, Est GFR ( Amer) 140, Glucose 84, Calcium 8.3 L, Magnesium 2.2, Total Bilirubin 0.9, AST 48 D, ALT 15 D, Alkaline Phosphatase 66, Total Protein 6.0 L, Albumin 3.3 L, Globulin 2.7, Albumin/Globulin Ratio 1.2 I & O for Last 24 hours: Intake & Output 06/17/24 06/18/24 06/19/24 06/20/24 11:59 11:59 11:59 11:59 Intake Total 4472 / 4472 1119 / 1119 1769 / 1769 Output Total 1575 / 1575 2450 / 2450 Balance 4472 / 4472 -456 / -456 -681 / -681 Weight 181 lb 3.52 oz 200 lb 3.2 oz 195 lb Constitutional Constitutional: no acute distress *Routine Respiratory Exam Respiratory: Absent respiratory distress *Routine Cardiovascular Exam Cardiovascular: Absent tachycardia *Routine Abdominal Exam Abdominal: Present soft and tenderness Comments: Incision clean, dry, and intact. No erythema. Progress Note: A&P Assessment and plan (1) SBO (small bowel obstruction): Status: Acute (2) S/P exploratory laparotomy: Status: Acute Assessment and Plan Assessment and Plan for All Diagnoses:: Await return of bowel function prior to advancement of diet Place NG to drain bag Continue to increase ambulation
[2024-06-20] MEDS: LACTATED RINGERS 1000ML 1,000 ML 25 ML IV (10:20)
[2024-06-20] MEDS: IPRATROPIUM/ALBUTEROL 3 ML NEB IH ×2 (10:57→18:20)
[2024-06-20] MEDS: HYDROMORPHONE 2MG/ML SYRINGE 1 MG IV (14:08)
--- NOTE | 2024-06-20 14:15 | PC.NURSE ---
checked pt residuals with NG tube per 's order. residual revealed 15ml. pt remains on drainage bag. no new orders at this time.
--- NOTE | 2024-06-20 17:55 | PC.NURSE ---
pt has overall had a good shift. d/c suction and pt now has a drainage bag. residual checks are now q4 and if over 100ml, then suction is to be resumed. pt had period of shift where he did not require 02, however pt is now satting in high 90s on 1L NC. bowel sounds have been hypoactive throughout shift. pt still has not passed gas. pt has walked 8 laps today around the floor. SERVICE TRAINER pump is in use and pt has used 11mg this far. no new orders at this time. call light within reach.
[2024-06-20] MEDS: SODIUM CHLORIDE 0.9% 10ML VIAL 8 ML IV (20:47)
--- NOTE | 2024-06-20 20:58 | PC.NURSE ---
Cleared 13 mg from MACHINE GUNNER pump at this time, was not cleared from day shift.
[2024-06-21] VITALS (10 sets, daily range): BP systolic 152–165; BP diastolic 78–89; PULSE 54–72; RESP 15–20; TEMP 36.7–37.1; O2SAT 91–95; BMI 26.9
[2024-06-21] MEDS: AMPICILLIN SODIUM/SULBACTAM 3 GM in 0.9 % SODIUM CHLORIDE 100 ML IV ×4 (03:06→21:05)
--- NOTE | 2024-06-21 05:55 | PC.NURSE ---
Pt is alert and oriented. Ambulated in the hallway at beginning of shift. Cleared 2mg from BONING ROOM WORKER. Emptied 80mL from R nare NG @ 70 to gravity drainage bag. Pt pain seems to be better controlled. Pt has not rested much tonight, states he is having trouble sleeping. Midline incision, open to air, CDI. Residuals 2000= 30, 0000= 35, 0400= 25. Pt abdomen not distended. Pt has had no complaints throughout the night. States he can feel rumbling in stomach, no gas passed, bowel sounds hypoactive. Uses urinal. remained at bedside. Call light in reach.
[2024-06-21] MEDS: IPRATROPIUM/ALBUTEROL 3 ML NEB IH ×3 (06:20→18:46)
--- NOTE | 2024-06-21 07:36 | P.PN_ITS ---
Subjective *Date: 06/21/24 *Time: 09:12 Interval history: Denies nausea or chest pain. Still on 1 L oxygen. No gas or bowel movement but having more activity on belly, Afebrile overnight. Using APN only a few times overnight. Ambulating multiple times a day and chewing gum Medical Exam Vital signs and Labs for Last 24 Hours: Vital Signs Temp Pulse Pulse Resp BP Pulse Ox O2 Del Method 06/21/24 06:45 Nasal Cannula 06/21/24 06:20 57 L 06/21/24 06:20 64 06/21/24 06:20 94 L Nasal Cannula 06/21/24 06:00 54 L 15 153/89 H 95 Nasal Cannula 06/21/24 05:00 Nasal Cannula 06/21/24 04:00 98.4 F 55 L 16 165/87 H 94 L Nasal Cannula 06/21/24 03:00 Nasal Cannula 06/21/24 02:00 55 L 16 164/81 H 93 L Nasal Cannula 06/21/24 01:00 Nasal Cannula 06/21/24 00:00 98.8 F 64 16 165/84 H 93 L Nasal Cannula 06/20/24 22:54 Nasal Cannula 06/20/24 22:00 68 15 148/77 H 92 L Nasal Cannula 06/20/24 21:00 Nasal Cannula 06/20/24 20:00 Nasal Cannula 06/20/24 19:49 98.4 F 72 18 140/73 93 L Nasal Cannula 06/20/24 18:50 64 06/20/24 18:49 67 06/20/24 18:33 Nasal Cannula 06/20/24 18:00 98.9 F 72 18 138/70 94 L Nasal Cannula 06/20/24 17:00 Nasal Cannula 06/20/24 15:26 99.1 F 61 19 128/73 90 L Room Air 06/20/24 14:55 Room Air 06/20/24 14:00 98.0 F 65 22 155/77 H 94 L Room Air 06/20/24 12:43 Room Air 06/20/24 12:00 99.3 F 63 18 133/79 94 L Room Air 06/20/24 10:58 Room Air 06/20/24 10:58 63 06/20/24 10:58 58 L 06/20/24 10:58 94 L Room Air 06/20/24 10:00 98.0 F 89 16 149/80 H 95 Room Air 06/20/24 08:30 Nasal Cannula 06/20/24 08:00 70 06/20/24 08:00 98.4 F 06/20/24 08:00 Nasal Cannula O2 Flow Rate 06/21/24 06:45 1 06/21/24 06:20 06/21/24 06:20 06/21/24 06:20 1 06/21/24 06:00 1 06/21/24 05:00 1 06/21/24 04:00 1 06/21/24 03:00 1 06/21/24 02:00 1 06/21/24 01:00 1 06/21/24 00:00 1 06/20/24 22:54 1 06/20/24 22:00 1 06/20/24 21:00 1 06/20/24 20:00 1 06/20/24 19:49 1 06/20/24 18:50 06/20/24 18:49 06/20/24 18:33 1 06/20/24 18:00 1 06/20/24 17:00 1 06/20/24 15:26 06/20/24 14:55 06/20/24 14:00 06/20/24 12:43 06/20/24 12:00 06/20/24 10:58 06/20/24 10:58 06/20/24 10:58 06/20/24 10:58 06/20/24 10:00 06/20/24 08:30 1 06/20/24 08:00 06/20/24 08:00 06/20/24 08:00 1 Intake and Output 06/20/24 06/20/24 06/21/24 15:59 23:59 07:59 Intake Total 1341 / 2399 594 / 594 Output Total 500 / 1700 175 / 1700 430 / 430 Balance 841 / 699 -175 / 699 164 / 164 Intake: Intake, Oral Amount 0 / 0 Intake, Oral Supplement Amount 0 / 0 Intake, Total IV Amount 1341 / 2399 594 / 594 Ampicillin Sodium/Sulbactam 3 200 / 200 gm In 0.9 % Sodium Chloride 100 ml @ 200 mls/hr IV Q6H [facility] Rx# :[id number] Lactated Ringers 1000ML 1,000 1341 / 2199 394 / 394 ml @ 25 mls/hr IV .Q25H [facility] Rx# :[id number] Output: Output, Urine Amount 400 / 1250 175 / 1250 350 / 350 Output, Gastric Drainage Amount 100 / 450 80 / 80 Right Nare 100 / 450 80 / 80 Other: Number of Voids 0 Number of Unmeasured Voids 1 0 0 Weight 85.411 kg Patient Weight 06/21/24 23:59 Weight 85.411 kg Laboratory Results - last 24 hr 06/20/24 06:22: Sodium 135 L, Potassium 4.0, Chloride 109 H, Carbon Dioxide 18 L , Anion Gap 12.0, BUN 17, Creatinine 0.70, Estimated Creat Clear 142, Estimated GFR 115, Est GFR ( Amer) 140, Glucose 84, Calcium 8.3 L, Total Bilirubin 0.9, AST 48 D, ALT 15 D, Alkaline Phosphatase 66, Total Protein 6.0 L, Albumin 3.3 L, Globulin 2.7, Albumin/Globulin Ratio 1.2 I & O for Labs for Last 24 Hours: Intake & Output 06/18/24 06/19/24 06/20/24 06/21/24 23:59 23:59 23:59 23:59 Intake Total 2136 / 2136 455 / 455 2399 / 2399 594 / 594 Output Total 875 / 875 2075 / 2200 1550 / 1700 430 / 430 Balance 1261 / 1261 -1620 / -1745 849 / 699 164 / 164 Weight 82.2 kg 90.809 kg 88.451 kg 85.411 kg Constitutional: Present no acute distress, average body habitus and cooperative Head: Present atraumatic and normocephalic ENT: Present normal exam Comment:: NG in nose Respiratory: Present CTA bilaterally and wheezes; Absent rhonchi or crackles Cardiac: Present Reg Rate and Rhythm GI: Present soft, tenderness (Diffuse, worse over surgical incisions; interval improvement however) and normal bowel sounds; Absent distention Skin: Present intact; Absent cyanosis Neuro: Present alert, awake, oriented x 3 and moves all extremities Assessment and Plan *Assessment and plan (1) SBO (small bowel obstruction): Status: Acute Category: Medical Code(s): K56.609 - Unspecified intestinal obstruction, unspecified as to partial versus complete obstruction (2) S/P exploratory laparotomy: Status: Acute Category: Surgical Code(s): Z98.890 - Other specified postprocedural states (3) CAD (coronary artery disease), [place] coronary artery: Status: Acute Qualifiers: Associated angina: unspecified whether angina present [place] vs. transplanted heart: [place] heart Qualified Code(s): I25.10 - Atherosclerotic heart disease of [place] coronary artery without angina pectoris Category: Medical Code(s): I25.10 - Atherosclerotic heart disease of [place] coronary artery without angina pectoris (4) History of heart attack: Status: Acute Category: Medical Code(s): I25.2 - Old myocardial infarction (5) Depression: Status: Acute Qualifiers: Depression Type: unspecified Qualified Code(s): F32.9 - Major depressive disorder, single episode, unspecified Category: Medical Code(s): F32.9 - Major depressive disorder, single episode, unspecified Plan 58-year-old male with PMHx of CAD s/p stent, open appendectomy, and a prior history of small bowel obstruction managed nonoperatively. He states that he had developed abdominal pain in the mid abdomen about 2 days ago described as cramping. He has had obstipation and not passing gas. CT was showing high grade SBO. He had nausea and some vomiting. patient seen and evaluated post op. exploratory laparotomy with resection of ischemic bowel was conducted. resting comfortable. Pain responding to APN. Continue NPO. Awaiting for bowel movements. Continues to require inpatient management. Problems addressed as follows: SBO s/p exploratory laparotomy w/ resection: Postop day 3 -Discussed case with surgery, will continue only ice chips. Continue NG to drain bag. Ambulate as able. Awaiting bowel movement prior to advancing diet. Continue NPO - 14mg morphine in the past 24 hrs. DC APN pump, transition to IV morphine 2mg IV q4hrs prn, monitor for toxicity -Will add Tylenol 650 mg every 6 hours as needed for moderate to severe pain - Continue prophylactic Unasyn 3 g every 6 hours - hold plavix -Awaiting morning labs. repeat CBC ordered for the morning along with CMP, magnesium. Patient is a smoker. Has some wheezing on exam. Still on 1 L oxygen, no oxygen use at home. Will initiate DuoNebs every 6 hours scheduled. Wean oxygen for O2 sats greater 90%. Chronic conditions CAD s/p stent, Hx of heart attack depression Holding medications while NPO. Will resume when appropriate SCD for DVT ppx famotidine IV for GI protection Full code
--- NOTE | 2024-06-21 08:15 | EXP.SURG.PN ---
Subjective Patient reports: no flatus and no bowel movement Narrative: No nausea or vomiting on drain bag . Although he has passed no flatus, he states things seem to be moving even more than yesterday . Exam Data for Last 24 hours Vital signs and Labs for Last 24 Hours: Temp Pulse Resp BP Pulse Ox O2 Del Method O2 Flow Rate 98.5 F 67 18 159/86 H 91 L Nasal Cannula 1 06/21/24 07:44 06/21/24 07:44 06/21/24 07:44 06/21/24 07:44 06/21/24 07:44 06/21/24 07:44 06/21/24 07:44 I & O for Last 24 hours: Intake & Output 06/18/24 06/19/24 06/20/24 06/21/24 11:59 11:59 11:59 11:59 Intake Total 4472 / 4472 1119 / 1119 1769 / 1769 1224 / 1224 Output Total 1575 / 1575 2650 / 2650 905 / 905 Balance 4472 / 4472 -456 / -456 -881 / -881 319 / 319 Weight 181 lb 3.52 oz 200 lb 3.2 oz 195 lb 188 lb 4.8 oz Constitutional Constitutional: no acute distress *Routine Respiratory Exam Respiratory: Absent respiratory distress *Routine Cardiovascular Exam Cardiovascular: Absent tachycardia *Routine Abdominal Exam Abdominal: Present soft and tenderness Comments: Incision clean, dry, and intact. No erythema. Progress Note: A&P Assessment and plan (1) SBO (small bowel obstruction): Status: Acute (2) S/P exploratory laparotomy: Status: Acute Assessment and Plan Assessment and Plan for All Diagnoses:: Await return of bowel function prior to advancement of diet Maintain NG to drain bag for now Continue to increase ambulation
[2024-06-21] MEDS: FAMOTIDINE 20MG/2ML VIAL 20 MG IV ×2 (09:13→21:05)
--- NOTE | 2024-06-21 09:22 | PC.NURSE ---
pt ambulated around unit via walker and PT
[2024-06-21 09:29] LABS: Basophils # 0.1 K/mm3 (0-0.2); Basophils % 0.9 % (0.1-2.0); Eosinophils # 0.2 K/mm3 (0.0-0.4); Eosinophils % 2.5 % (0.1-12.0); Hematocrit 40.4 % (42.0-52.0); Hemoglobin 13.3 g/dL (14.1-18.0); Lymphocytes % 14.6 % (10-50); Mean Corpuscular HGB Conc 32.9 g/dL (31.8-35.4); Mean Corpuscular Hemoglobin 31.3 pg (27.0-31.2); Mean Corpuscular Volume 95.2 fl (80-94); Mean Platelet Volume 8.1 fl (7.4-10.4); Monocytes # 0.3 K/mm3 (0.1-1.0); Monocytes % 4.5 % (1.7-9.3); Neutrophils # 5.1 K/mm3 (1.8-7.8); Neutrophils % 77.5 % (37.0-80.0); Platelet Count 238 K/mm3 (142-424); Red Blood Count 4.24 M/mm3 (4.60-6.20); Red Cell Distribution Width 13.6 % (11.5-17.5); White Blood Count 6.6 K/mm3 (4.8-10.8)
--- NOTE | 2024-06-21 09:39 | HMH.PTEV ---
Physical Therapy Evaluation Rehab PT IP Evaluation Start: 06/20/24 16:43 Freq: ONCE Status: Active Protocol: Document 06/21/24 09:31 NASREEN (Rec: 06/21/24 09:36 NASREEN [email or web address]) Subjective/History History History Per H&P: Patient is a 58-year-old male with PMHx of CAD s/p stent, open appendectomy, and a prior history of small bowel obstruction managed nonoperatively. He states that he had developed abdominal pain in the mid abdomen about 2 days ago described as cramping. He has had obstipation and not passing gas. He had nausea and some vomiting. Due to the persistence of his pain he presented to the emergency department. He was found to have appreciable tenderness on examination. Surgical consultation was obtained. In the interim CT report returns with findings of high-grade small bowel obstruction involving mid jejunum with transition point associated with mildly thickened small bowel. emergently taken to OR for exploratory laparotomy. Subjective Subjective Pt reports he lives with his . Pt was IND with all mobility and ADLs prior to admission. Pt works FT with plans to return to work as soon as he is able. New diagnosis of cancer in past 12 No months? Rehab PT IP Eval Objective Appearance Patient Behavior Appropriate,Cooperative Patient Orientation Person,Place Difficulty following instructions none Speech Pattern Clear Ambulation Patient Able to Ambulate Yes Ambulation Observation IP General Gait Pattern Observation No Deviations/Normal Ambulation Distance (feet) 300 Ambulation Assistive Device Rolling Walker Ambulation Ability Supervision/Stand by Balance Ability to Arise Able, uses arms to help Sitting Balance Steady, safe Standing Balance Narrow stance w/o support Transfers Bed Transfer Ability Independent Sit to Stand Bed Transfer Ability Supervision/Stand by Rehab PT IP prob,goals,plan Problems Date of Evaluation: 06/21/24 Rehab Potential Rehab Potential Innapropriate for Skilled Therapy Discharge Plan PT Discharge Plan Pt safe to d/c home when deemed medically necessary d/t current level of mobility, home set-up, and family support. Pt not appropriate for skilled acute care PT at this time d/t pt?s mobility being at baseline. Eval Complexity Eval Charge Codes 33313 - Moderate Complexity PHYSICIAN CERTIFICATION: I certify the specified therapy services for Rodolfo Dunawayor are required, authorized, and reviewed every 30 days.
[2024-06-21 09:41] LABS: Albumin Level 3.5 g/dl (3.5-5.0); Chloride 106 mmol/L (98-107); Potassium 3.8 mmoL/L (3.5-5.1); Sodium 136 mmol/L (136-145)
[2024-06-21 09:44] LABS: Alanine Aminotransferase 25 U/L (12-78); Albumin/Globulin Ratio 1.3 (1.1-1.8); Alkaline Phosphatase 54 U/L (38-126); Anion Gap 11.8 mEq/L (5-15); Aspartate Amino Transferase 28 U/L (17-59); Bilirubin,Total 0.9 mg/dl (0.2-1.3); Blood Urea Nitrogen 15 mg/dl (9-20); Carbon Dioxide 22 mmol/L (22.0-30.0); Creatinine Clearance Estimated 160 mL/min (50-200); Estimated Glomerular Filt Rate 138 ml/min (>60); GFR (African American) 167 ML/MIN (>60); Globulin 2.8 g/dL (1.3-3.2); Total Protein,Serum 6.3 g/dl (6.3-8.2)
[2024-06-21 09:45] LABS: Calcium 8.1 mg/dl (8.4-10.2); Glucose 86 mg/dl (74-100)
--- NOTE | 2024-06-21 09:56 | HMH.OTEV ---
OT Inpatient Evaluation Rehab OT IP Evaluation Start: 06/20/24 16:43 Freq: ONCE Status: Active Protocol: Document 06/21/24 09:53 RACHELLEXINGTON (Rec: 06/21/24 09:56 [facility] [id number]) Rehab OT IP Assessment Subjective History Pt oriented x 3 on arrival and agreeable to engage in therapy evaluation. Pt was admitted on 06/17/24 with abdominal pain. History and Physical: Patient is a 58-year-old male with PMHx of CAD s/p stent, open appendectomy, and a prior history of small bowel obstruction managed nonoperatively. He states that he had developed abdominal pain in the mid abdomen about 2 days ago described as cramping. He has had obstipation and not passing gas. He had nausea and some vomiting. Due to the persistence of his pain he presented to the emergency department. He was found to have appreciable tenderness on examination. Surgical consultation was obtained. In the interim CT report returns with findings of high-grade small bowel obstruction involving mid jejunum with transition point associated with mildly thickened small bowel. emergently taken to OR for exploratory laparotomy. Subjective I am ready to go back to work . Prior to being in the hospital , pt lived at home with his . Normally patient is independent with all ADLs and IADLs. 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 Pt also drives; not AE during functional transfers required. Objective Patient Orientation Person,Place,Birthday Right Upper Extremity Gross ROM WFL Left Upper Extremity Gross ROM WFL Bed Mobility bed mobility-scooting,bed mobility - supine/sit Assist Level Supervision/Stand by Transfer Training Sit/Stand Transfer Assist Level Supervision/Stand by Chair Transfer Ability Supervision/Stand by Chair Transfer Technique Sit to/from Ambulatory Chair Transfer Assistive Devices Rolling Walker Lower Body Dressing Ability Standby Assistance Rehab OT IP prob,goals,plan Problems Date of Evaluation: 06/21/24 Rehab Potential Rehab Potential Innapropriate for Skilled Therapy Discharge Plan OT Discharge Plan Pt appears to be at his baseline with functional transfers and ADL independence . Pt can return home with his once he is medically stable. Eval Complexity Eval Charge Codes 97515 - Low Complexity PHYSICIAN CERTIFICATION: I certify the specified therapy services for Rodolfo Goldfield are required, authorized, and reviewed every 30 days.
[2024-06-21 10:10] LABS: Magnesium 2.1 mg/dl (1.6-2.3)
[2024-06-21] MEDS: FUROSEMIDE 40MG/4ML VIAL 40 MG IV (11:27)
--- NOTE | 2024-06-21 13:07 | DIET.NUTRFU ---
During rounds this morning with provider and IDT, NPO x3 days s/p GI sx. Lactated ringers provided 2199ml 06/20, 394ml 06/21 so far. Waiting for BM. Has been up walking around, up in chair during rounds. Although he has passed no flatus, he states things seem to be moving even more than yesterday - per sx note. NG to drain bag for now. Suggested TPN and provider today felt BM was close and wants to wait and revisit 7 days NPO. Wt stable, may benefit from supplement once oral diet started to replenish. Labs on 06/21 reviewed, unremarkable. Will continue to follow sx recommendations for diet.
[2024-06-21] MEDS: MORPHINE 2MG/ML SYRINGE 2 MG IV ×2 (13:13→19:38)
[2024-06-21] MEDS: ACETAMINOPHEN 325MG TAB 650 MG PO ×2 (14:50→22:06)
--- NOTE | 2024-06-21 16:52 | PC.NURSE ---
pt has tolerated room air all shift. pt has been satting 92-95% on room air. 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 pt has requested pain medication 1 time this shift. remains at bedside. pt still has not passed gas. bowel sounds have remained hypoactive. pt has seemed frustrated d/t inability to pass gas. NG remains at 70 to right nare and hooked to drainage bag @ gravity. no new orders at this time. call light within reach.
[2024-06-21] MEDS: PHENOL THROAT SPRAY 177 ML BOTTLE MM (17:47)
--- NOTE | 2024-06-21 19:25 | PC.NURSE ---
Pt ambulating in [place] with at this time, tolerating well.
[2024-06-21] MEDS: SODIUM CHLORIDE 0.9% 10ML VIAL 8 ML IV (21:05)
[2024-06-21] MEDS: KETOROLAC 30MG/ML VIAL 15 MG IV (23:17)
[2024-06-22] VITALS (8 sets, daily range): BP systolic 141–155; BP diastolic 74–79; PULSE 48–79; RESP 17–22; TEMP 36.6–37.5; O2SAT 92–94; BMI 25.8
[2024-06-22] MEDS: AMPICILLIN SODIUM/SULBACTAM 3 GM in 0.9 % SODIUM CHLORIDE 100 ML IV ×4 (04:30→22:05)
--- NOTE | 2024-06-22 05:41 | PC.NURSE ---
Pt c/o cramping abdominal pain at beginning of shift. BM sounds hypoactive. Pt was given all available PRN medications and continued to call out in pain rating it 07/03. Torito Tom made aware and Toradol 15mg IV ONCE was ordered and administered. Pt stated relief and has not complained of any pain since throughout night. Pt has slept well since then and states his pain is much more tolerable this AM. Pt denies having any flatulence through the night. NG tube remains in place at 70cm. at bedside. Call light within reach.
--- NOTE | 2024-06-22 06:30 | PC.NURSE ---
Pt resting comfortably on room air did not disturb.
[2024-06-22] MEDS: MORPHINE 2MG/ML SYRINGE 2 MG IV (06:46)
--- NOTE | 2024-06-22 07:05 | P.PN_ITS ---
Subjective Patient reports: no new complaints and no flatus Narrative: No nausea or vomiting. He complains of irritation secondary to the nasogastric tube. Although he has yet to pass flatus, he states that things still are rumbling down there . Exam Data for Last 24 hours Vital signs and Labs for Last 24 Hours: Temp Pulse Resp BP Pulse Ox O2 Del Method O2 Flow Rate 98.4 F 48 L 17 141/75 H 94 L Room Air 1 06/22/24 04:00 06/22/24 04:00 06/22/24 04:00 06/22/24 04:00 06/22/24 04:00 06/22/24 05:00 06/21/24 08:42 Laboratory Results - last 24 hr 06/21/24 09:18: WBC 6.6 D, RBC 4.24 L, Hgb 13.3 L, Hct 40.4 L, MCV 95.2 H, MCH 31.3 H, MCHC 32.9, RDW 13.6, Plt Count 238 D, MPV 8.1, Neut % (Auto) 77.5, Lymph % (Auto) 14.6, [place] % (Auto) 4.5, Eos % (Auto) 2.5, Baso % (Auto) 0.9, Neut # (Auto) 5.1, Lymph # (Auto) 1.0, [place] # (Auto) 0.3, Eos # (Auto) 0.2, Baso # (Auto) 0.1, Sodium 136, Potassium 3.8, Chloride 106, Carbon Dioxide 22, Anion Gap 11.8, BUN 15, Creatinine 0.60 L, Estimated Creat Clear 160, Estimated GFR 138, Est GFR ( Amer) 167, Glucose 86, Calcium 8.1 L, Magnesium 2.1, Total Bilirubin 0.9, AST 28 D, ALT 25 D, Alkaline Phosphatase 54, Total Protein 6.3, Albumin 3.5, Globulin 2.8, Albumin/Globulin Ratio 1.3 I & O for Last 24 hours: Intake & Output 06/19/24 06/20/24 06/21/24 06/22/24 11:59 11:59 11:59 11:59 Intake Total 1119 / 1119 1769 / 1769 1224 / 1224 300 / 300 Output Total 1575 / 1575 2650 / 2650 1205 / 1205 1400 / 1400 Balance -456 / -456 -881 / -881 / 19 -1100 / -1100 Weight 200 lb 3.2 oz 195 lb 188 lb 4.8 oz 180 lb 11.2 oz Constitutional Constitutional: no acute distress *Routine Respiratory Exam Respiratory: Absent respiratory distress *Routine Cardiovascular Exam Cardiovascular: Absent tachycardia *Routine Abdominal Exam Abdominal: Present soft and tenderness Comments: Incision clean, dry, and intact. No erythema. Progress Note: A&P Assessment and plan (1) SBO (small bowel obstruction): Status: Acute (2) S/P exploratory laparotomy: Status: Acute Assessment and Plan Assessment and Plan for All Diagnoses:: Nasogastric tube to drain bag for 24 hours without increased distention, nausea, or vomiting (no flatus). His only complaint currently is secondary to irritation from the nasogastric tube. I have had a discussion with the patient concerning the risks and benefits of nasogastric tube removal. He understands that the nasogastric tube may ultimately have to be replaced; however, he wishes to have it removed at this time. Remove nasogastric tube Hold off on diet advancement for now Await definitive return of bowel function Continue to increase ambulation Remove one half of martina
[2024-06-22 07:07] LABS: Basophils % 0.2 % (0.1-2.0); Eosinophils # 0.2 K/mm3 (0.0-0.4); Eosinophils % 2.8 % (0.1-12.0); Hematocrit 39.8 % (42.0-52.0); Hemoglobin 13.6 g/dL (14.1-18.0); Lymphocytes % 15.7 % (10-50); Mean Corpuscular Hemoglobin 31.5 pg (27.0-31.2); Mean Corpuscular Volume 92.5 fl (80-94); Mean Platelet Volume 8.8 fl (7.4-10.4); Monocytes # 0.4 K/mm3 (0.1-1.0); Monocytes % 6.7 % (1.7-9.3); Neutrophils # 4.9 K/mm3 (1.8-7.8); Neutrophils % 74.5 % (37.0-80.0); Platelet Count 262 K/mm3 (142-424); Red Blood Count 4.31 M/mm3 (4.60-6.20); Red Cell Distribution Width 13.5 % (11.5-17.5); White Blood Count 6.6 K/mm3 (4.8-10.8)
[2024-06-22 07:41] LABS: Alanine Aminotransferase 36 U/L (12-78); Albumin Level 3.4 g/dl (3.5-5.0); Albumin/Globulin Ratio 1.1 (1.1-1.8); Alkaline Phosphatase 53 U/L (38-126); Anion Gap 12.4 mEq/L (5-15); Aspartate Amino Transferase 37 U/L (17-59); Bilirubin,Total 0.8 mg/dl (0.2-1.3); Blood Urea Nitrogen 21 mg/dl (9-20); Calcium 8.9 mg/dl (8.4-10.2); Carbon Dioxide 23 mmol/L (22.0-30.0); Chloride 106 mmol/L (98-107); Creatinine Clearance Estimated 132 mL/min (50-200); Estimated Glomerular Filt Rate 115 ml/min (>60); GFR (African American) 140 ML/MIN (>60); Glucose 95 mg/dl (74-100); Magnesium 2.3 mg/dl (1.6-2.3); Potassium 3.4 mmoL/L (3.5-5.1); Sodium 138 mmol/L (136-145); Total Protein,Serum 6.4 g/dl (6.3-8.2)
--- NOTE | 2024-06-22 08:19 | EXP.ACUTE.PN ---
Subjective *Date: 06/22/24 *Time: 11:41 Interval history: Complaint of sore throat, having a lot of activity in his abdomen. Still no gas/flatus or BM. No nausea or vomiting. Stable on room air. Denies shortness of breath or chest pain. Ambulating independently multiple times a day Medical Exam Vital signs and Labs for Last 24 Hours: Vital Signs Temp Pulse Pulse Resp BP Pulse Ox O2 Del Method 06/22/24 07:46 97.8 F 58 L 148/76 H 94 L Room Air 06/22/24 07:30 58 L 94 L Room Air 06/22/24 07:00 Room Air 06/22/24 05:00 Room Air 06/22/24 04:00 98.4 F 48 L 17 141/75 H 94 L Room Air 06/22/24 03:00 Room Air 06/22/24 00:56 Room Air 06/22/24 00:00 98.4 F 57 L 17 148/74 H 92 L 06/21/24 23:00 Room Air 06/21/24 21:00 Room Air 06/21/24 19:51 Room Air 06/21/24 19:34 98.1 F 67 17 156/78 H 94 L Room Air 06/21/24 18:54 Room Air 06/21/24 18:46 56 L 06/21/24 18:46 60 06/21/24 16:44 Room Air 06/21/24 15:53 98.2 F 69 18 156/81 H 93 L Room Air 06/21/24 15:00 Room Air 06/21/24 12:59 Room Air 06/21/24 11:51 98.2 F 72 20 152/83 H 92 L Room Air 06/21/24 11:00 Room Air 06/21/24 08:42 Nasal Cannula O2 Flow Rate 06/22/24 07:46 06/22/24 07:30 06/22/24 07:00 06/22/24 05:00 06/22/24 04:00 06/22/24 03:00 06/22/24 00:56 06/22/24 00:00 06/21/24 23:00 06/21/24 21:00 06/21/24 19:51 06/21/24 19:34 06/21/24 18:54 06/21/24 18:46 06/21/24 18:46 06/21/24 16:44 06/21/24 15:53 06/21/24 15:00 06/21/24 12:59 06/21/24 11:51 06/21/24 11:00 06/21/24 08:42 1 Intake and Output 06/21/24 06/22/24 06/22/24 23:59 07:59 15:59 Intake Total 200 / 200 Output Total 200 / 200 Balance 0 / 0 Intake: Intake, Total IV Amount 200 / 200 Ampicillin Sodium/Sulbactam 3 200 / 200 gm In 0.9 % Sodium Chloride 100 ml @ 200 mls/hr IV Q6H [facility] Rx# :[id number] Output: Output, Urine Amount 200 / 200 Other: Number of Voids 0 Number of Unmeasured Voids 0 Number of Bowel Movements 0 Weight 81.964 kg Patient Weight 06/22/24 23:59 Weight 81.964 kg Laboratory Results - last 24 hr 06/21/24 09:18: WBC 6.6 D, RBC 4.24 L, Hgb 13.3 L, Hct 40.4 L, MCV 95.2 H, MCH 31.3 H, MCHC 32.9, RDW 13.6, Plt Count 238 D, MPV 8.1, Neut % (Auto) 77.5, Lymph % (Auto) 14.6, [place] % (Auto) 4.5, Eos % (Auto) 2.5, Baso % (Auto) 0.9, Neut # (Auto) 5.1, Lymph # (Auto) 1.0, [place] # (Auto) 0.3, Eos # (Auto) 0.2, Baso # (Auto) 0.1, Sodium 136, Potassium 3.8, Chloride 106, Carbon Dioxide 22, Anion Gap 11.8, BUN 15, Creatinine 0.60 L, Estimated Creat Clear 160, Estimated GFR 138, Est GFR ( Amer) 167, Glucose 86, Calcium 8.1 L, Magnesium 2.1, Total Bilirubin 0.9, AST 28 D, ALT 25 D, Alkaline Phosphatase 54, Total Protein 6.3, Albumin 3.5, Globulin 2.8, Albumin/Globulin Ratio 1.3 06/22/24 06:34: WBC 6.6, RBC 4.31 L, Hgb 13.6 L, Hct 39.8 L, MCV 92.5, MCH 31.5 H, MCHC 34.0, RDW 13.5, Plt Count 262, MPV 8.8, Neut % (Auto) 74.5, Lymph % (Auto) 15.7, [place] % (Auto) 6.7, Eos % (Auto) 2.8, Baso % (Auto) 0.2, Neut # (Auto) 4.9, Lymph # (Auto) 1.0, [place] # (Auto) 0.4, Eos # (Auto) 0.2, Baso # (Auto) 0.0, Sodium 138, Potassium 3.4 L, Chloride 106, Carbon Dioxide 23, Anion Gap 12.4, BUN 21 H D, Creatinine 0.70, Estimated Creat Clear 132, Estimated GFR 115, Est GFR ( Amer) 140, Glucose 95, Calcium 8.9, Magnesium 2.3, Total Bilirubin 0.8, AST 37 D, ALT 36 D, Alkaline Phosphatase 53, Total Protein 6.4, Albumin 3.4 L, Globulin 3.0, Albumin/Globulin Ratio 1.1 I & O for Labs for Last 24 Hours: Intake & Output 06/19/24 06/20/24 06/21/24 06/22/24 23:59 23:59 23:59 23:59 Intake Total 455 / 455 2399 / 2399 694 / 794 200 / 200 Output Total 2075 / 2200 1550 / 1700 2130 / 2330 200 / 200 Balance -1620 / -1745 849 / 699 -1436 / -1536 0 / 0 Weight 90.809 kg 88.451 kg 85.411 kg 81.964 kg Constitutional: Present no acute distress, average body habitus and cooperative Head: Present atraumatic and normocephalic ENT: Present normal exam Respiratory: Present CTA bilaterally and wheezes; Absent rhonchi or crackles Cardiac: Present Reg Rate and Rhythm GI: Present soft, tenderness (Over surgical incisions, improving) and normal bowel sounds; Absent distention Skin: Present intact; Absent cyanosis Neuro: Present alert, awake, oriented x 3 and moves all extremities Assessment and Plan *Assessment and plan (1) SBO (small bowel obstruction): Status: Acute Category: Medical Code(s): K56.609 - Unspecified intestinal obstruction, unspecified as to partial versus complete obstruction (2) S/P exploratory laparotomy: Status: Acute Category: Surgical Code(s): Z98.890 - Other specified postprocedural states (3) CAD (coronary artery disease), [place] coronary artery: Status: Acute Qualifiers: Associated angina: unspecified whether angina present [place] vs. transplanted heart: [place] heart Qualified Code(s): I25.10 - Atherosclerotic heart disease of [place] coronary artery without angina pectoris Category: Medical Code(s): I25.10 - Atherosclerotic heart disease of [place] coronary artery without angina pectoris (4) History of heart attack: Status: Acute Category: Medical Code(s): I25.2 - Old myocardial infarction (5) Depression: Status: Acute Qualifiers: Depression Type: unspecified Qualified Code(s): F32.9 - Major depressive disorder, single episode, unspecified Category: Medical Code(s): F32.9 - Major depressive disorder, single episode, unspecified Plan 58-year-old male with PMHx of CAD s/p stent, open appendectomy, and a prior history of small bowel obstruction managed nonoperatively. He states that he had developed abdominal pain in the mid abdomen about 2 days ago described as cramping. He has had obstipation and not passing gas. CT was showing high grade SBO. He had nausea and some vomiting. patient seen and evaluated post op. exploratory laparotomy with resection of ischemic bowel was conducted. resting comfortable. Tolerating as needed opiates and NSAIDs IV. NG out today. Continue NPO. Awaiting for bowel movements. Continues to require inpatient management. Problems addressed as follows: SBO s/p exploratory laparotomy w/ resection: Postop day 3 -Discussed case with surgery, will continue only ice chips. NG out today. Ambulate as able. Awaiting bowel movement prior to advancing diet. Continue NPO - continue IV morphine 2mg IV q4hrs prn, monitor for toxicity, toradol 15mg q6hprn moderate pain -Will add Tylenol 650 mg every 6 hours as needed for moderate to severe pain - Continue prophylactic Unasyn 3 g every 6 hours, will complete at least 5-7 antibiotics. - hold plavix -Kidney function normal with BUN 21, creatinine 0.7. Sodium 138. Potassium 3.8. White cell count normal at 6.6. repeat CBC ordered for the morning along with CMP, magnesium. Patient is a smoker. No longer having wheeze, Weaned off oxygen, DuoNebs every 6 hours scheduled. Goal O2 sats greater 90%. Chronic conditions CAD s/p stent, Hx of heart attack depression Holding medications while NPO. Will resume when appropriate SCD for DVT ppx famotidine IV for GI protection Full code
[2024-06-22] MEDS: SODIUM CHLORIDE 0.9% 10ML VIAL 8 ML IV ×2 (09:41→20:29)
[2024-06-22] MEDS: FAMOTIDINE 20MG/2ML VIAL 20 MG IV ×2 (09:41→20:29)
[2024-06-22] MEDS: KETOROLAC 30MG/ML VIAL 15 MG IV ×2 (10:03→20:32)
--- NOTE | 2024-06-22 10:13 | PC.NURSE ---
0730 ng tube removed per Dr Lui verbal order this am 1000 1/2 of pt martina removed and steri strips applied per Dr Lui order. no gas or bm noted at this time. pt incision is CDI. minimal redness noted at insertion site of martina. scant serous drainage noted from a few staple insertion sites.
[2024-06-22] MEDS: IPRATROPIUM/ALBUTEROL 3 ML NEB IH (11:13)
--- NOTE | 2024-06-22 11:22 | DIET.NUTRFU ---
Continues NPO, hypoactive bowel sounds, walking was encouraged. NG tube pulled.Chewing gum, waiting for BM then advance diet
--- NOTE | 2024-06-22 15:41 | PC.NURSE ---
pt has ambulated in the [place] numerous times this shift. pt is a/o x 4, he voids per the commode. pt has active bowel sounds in all quads. pt lung sounds are clear throughout. pt states he feels the sensation of needing to have a bm but has yet to be able to. nad noted. pt had new iv started as the one in the left ac had a knot noted above the insertion site and pt was endorsing some slight pain when flushing the iv. pt also indicated that the pain he is experiencing off and on is similar in nature to the pain he had upon admission/surgery. Dr Choi was notified of this face to face at [phone]
--- NOTE | 2024-06-22 18:02 | PC.NURSE ---
While ambulating around the unit pt approached staff and informed them he was able to pass a small amount of flatus. dr Choi notified at this time as well [id number]
--- NOTE | 2024-06-22 18:18 | PC.NURSE ---
Notified Dr Lui that pt was able to pass gas x2 this early evening. per Dr Lui, ok to do cautious sips and chips for patient. [id number]
--- NOTE | 2024-06-22 21:56 | PC.NURSE ---
Pt reports passing gas and states it is the 2nd time since surgery.
[2024-06-23] MEDS: AMPICILLIN SODIUM/SULBACTAM 3 GM in 0.9 % SODIUM CHLORIDE 100 ML IV ×2 (03:26→09:19)
--- NOTE | 2024-06-23 03:37 | PC.NURSE ---
Pt is alert and oriented x4, Pt has ambulated in hallway x2 this shift and is tolerating ambulation well. Pt admits to having passed gas multiple times this shift. Pt has also been tolerating sips well and requests more to drink, this nurse advised pt to take his time and sip fluids. Pt has c/o pain once this shift and was treated per MAR, pain has since resolved. Pt martina are slightly red to pink at incision site (no change from previous assessment). Pt has received x2 doses of antibiotics this shift and has tolerated them well. Pt bowel sounds are active in all 4 quads. Pt denies needs and is extremely pleasant with staff.
[2024-06-23 04:00] VITALS: BP 137/65; PULSE 53; RESP 18; TEMP 37.1; O2SAT 94; BMI 25.7
[2024-06-23 06:34] LABS: Basophils % 0.7 % (0.1-2.0); Eosinophils # 0.2 K/mm3 (0.0-0.4); Eosinophils % 2.7 % (0.1-12.0); Hematocrit 39.3 % (42.0-52.0); Hemoglobin 13.2 g/dL (14.1-18.0); Lymphocytes # 1.3 K/mm3 (0.7-4.5); Lymphocytes % 19.5 % (10-50); Mean Corpuscular HGB Conc 33.6 g/dL (31.8-35.4); Mean Corpuscular Hemoglobin 31.9 pg (27.0-31.2); Mean Platelet Volume 8.5 fl (7.4-10.4); Monocytes # 0.4 K/mm3 (0.1-1.0); Monocytes % 6.2 % (1.7-9.3); Neutrophils # 4.6 K/mm3 (1.8-7.8); Neutrophils % 70.9 % (37.0-80.0); Platelet Count 268 K/mm3 (142-424); Red Blood Count 4.14 M/mm3 (4.60-6.20); Red Cell Distribution Width 13.7 % (11.5-17.5); White Blood Count 6.5 K/mm3 (4.8-10.8)
--- NOTE | 2024-06-23 06:46 | P.PN_ITS ---
Subjective Patient reports: flatus and bowel movement Exam Data for Last 24 hours Vital signs and Labs for Last 24 Hours: Temp Pulse Resp BP Pulse Ox O2 Del Method O2 Flow Rate 98.7 F 53 L 18 137/65 94 L Room Air 1 06/23/24 04:00 06/23/24 04:00 06/23/24 04:00 06/23/24 04:00 06/23/24 04:00 06/23/24 06:32 06/21/24 08:42 Laboratory Results - last 24 hr 06/22/24 06:34: WBC 6.6, RBC 4.31 L, Hgb 13.6 L, Hct 39.8 L, MCV 92.5, MCH 31.5 H, MCHC 34.0, RDW 13.5, Plt Count 262, MPV 8.8, Neut % (Auto) 74.5, Lymph % (Auto) 15.7, [place] % (Auto) 6.7, Eos % (Auto) 2.8, Baso % (Auto) 0.2, Neut # (Auto) 4.9, Lymph # (Auto) 1.0, [place] # (Auto) 0.4, Eos # (Auto) 0.2, Baso # (Auto) 0.0, Sodium 138, Potassium 3.4 L, Chloride 106, Carbon Dioxide 23, Anion Gap 12.4, BUN 21 H D, Creatinine 0.70, Estimated Creat Clear 132, Estimated GFR 115, Est GFR ( Amer) 140, Glucose 95, Calcium 8.9, Magnesium 2.3, Total Bilirubin 0.8, AST 37 D, ALT 36 D, Alkaline Phosphatase 53, Total Protein 6.4, Albumin 3.4 L, Globulin 3.0, Albumin/Globulin Ratio 1.1 I & O for Last 24 hours: Intake & Output 06/20/24 06/21/24 06/22/24 06/23/24 11:59 11:59 11:59 11:59 Intake Total 1769 / 1769 1224 / 1224 300 / 300 360 / 360 Output Total 2650 / 2650 1205 / 1205 1400 / 1400 Balance -881 / -881 -1100 / -1100 360 / 360 Weight 195 lb 188 lb 4.8 oz 180 lb 11.2 oz 179 lb 14.4 oz Constitutional Constitutional: no acute distress *Routine Respiratory Exam Respiratory: Absent respiratory distress *Routine Cardiovascular Exam Cardiovascular: Absent tachycardia *Routine Abdominal Exam Abdominal: Present soft Comments: Incision healing without evidence of infection Progress Note: A&P Assessment and plan (1) SBO (small bowel obstruction): Status: Acute (2) S/P exploratory laparotomy: Status: Acute Assessment and Plan Assessment and Plan for All Diagnoses:: Nasogastric tube out. Bowel function returning. Slowly advance diet Continue ambulation
[2024-06-23 06:53] LABS: Alanine Aminotransferase 49 U/L (12-78); Albumin Level 3.3 g/dl (3.5-5.0); Albumin/Globulin Ratio 1.2 (1.1-1.8); Alkaline Phosphatase 49 U/L (38-126); Anion Gap 11.4 mEq/L (5-15); Aspartate Amino Transferase 48 U/L (17-59); Bilirubin,Total 0.6 mg/dl (0.2-1.3); Blood Urea Nitrogen 25 mg/dl (9-20); Calcium 8.4 mg/dl (8.4-10.2); Carbon Dioxide 24 mmol/L (22.0-30.0); Chloride 107 mmol/L (98-107); Creatinine Clearance Estimated 153 mL/min (50-200); Estimated Glomerular Filt Rate 138 ml/min (>60); GFR (African American) 167 ML/MIN (>60); Globulin 2.8 g/dL (1.3-3.2); Glucose 110 mg/dl (74-100); Potassium 3.4 mmoL/L (3.5-5.1); Sodium 139 mmol/L (136-145); Total Protein,Serum 6.1 g/dl (6.3-8.2)
[2024-06-23 08:00] VITALS: BP 145/69; PULSE 67; RESP 16; TEMP 36.7; O2SAT 95
[2024-06-23] MEDS: FAMOTIDINE 20MG/2ML VIAL 20 MG IV ×2 (08:41→21:12)
--- NOTE | 2024-06-23 09:46 | P.PN_ITS ---
Subjective *Date: 06/23/24 *Time: 12:12 Interval history: Ambulating frequently and independently. On room air. No nausea or vomiting. Had bowel movements overnight. Advancing diet today. Patient with little increased abdominal pain in the wall likely due to overexerting yesterday. O therwise feeling well. Medical Exam Vital signs and Labs for Last 24 Hours: Vital Signs Temp Pulse Pulse Resp BP Pulse Ox O2 Del Method 06/23/24 09:00 Room Air 06/23/24 08:00 Room Air 06/23/24 08:00 98.1 F 67 16 145/69 H 95 06/23/24 06:32 Room Air 06/23/24 05:00 Room Air 06/23/24 04:00 98.7 F 53 L 18 137/65 94 L Room Air 06/23/24 03:00 Room Air 06/23/24 01:00 Room Air 06/22/24 23:00 Room Air 06/22/24 21:00 Room Air 06/22/24 20:00 93 L Room Air 06/22/24 19:53 99.5 F 56 L 18 141/79 H 93 L Room Air 06/22/24 18:56 Room Air 06/22/24 16:55 Room Air 06/22/24 16:00 99 F 59 L 22 155/74 H 94 L Room Air 06/22/24 15:10 Room Air 06/22/24 13:05 Room Air 06/22/24 11:14 79 06/22/24 11:14 77 06/22/24 10:50 Room Air Intake and Output 06/22/24 06/23/24 06/23/24 23:59 07:59 15:59 Intake Total 200 / 560 160 / 520 360 / 520 Balance 200 / 360 160 / 520 360 / 520 Intake: Intake, Oral Amount 60 / 420 360 / 420 Intake, Total IV Amount 200 / 500 100 / 100 Ampicillin Sodium/Sulbactam 3 200 / 500 100 / 100 gm In 0.9 % Sodium Chloride 100 ml @ 200 mls/hr IV Q6H [facility] Rx# :[id number] Other: Weight 81.601 kg Patient Weight 06/23/24 23:59 Weight 81.601 kg Laboratory Results - last 24 hr 06/23/24 05:52: WBC 6.5, RBC 4.14 L, Hgb 13.2 L, Hct 39.3 L, MCV 95.0 H, MCH 31 .9 H, MCHC 33.6, RDW 13.7, Plt Count 268, MPV 8.5, Neut % (Auto) 70.9, Lymph % (Auto) 19.5, [place] % (Auto) 6.2, Eos % (Auto) 2.7, Baso % (Auto) 0.7, Neut # (Auto) 4.6, Lymph # (Auto) 1.3, [place] # (Auto) 0.4, Eos # (Auto) 0.2, Baso # (Auto) 0.0, Sodium 139, Potassium 3.4 L, Chloride 107, Carbon Dioxide 24, Anion Gap 11.4, BUN 25 H, Creatinine 0.60 L, Estimated Creat Clear 153, Estimated GFR 138, Est GFR ( Amer) 167, Glucose 110 H, Calcium 8.4, Magnesium 2.0 D, Total Bilirubin 0.6, AST 48 D, ALT 49 D, Alkaline Phosphatase 49, Total Protein 6.1 L, Albumin 3.3 L, Globulin 2.8, Albumin/Globulin Ratio 1.2 I & O for Labs for Last 24 Hours: Intake & Output 06/20/24 06/21/24 06/22/24 06/23/24 23:59 23:59 23:59 23:59 Intake Total 2399 / 2399 694 / 794 400 / 560 520 / 520 Output Total 1550 / 1700 2130 / 2330 200 / 200 Balance 849 / 699 -1436 / -1536 200 / 360 520 / 520 Weight 88.451 kg 85.411 kg 81.964 kg 81.601 kg Constitutional: Present no acute distress, average body habitus and cooperative Head: Present atraumatic and normocephalic ENT: Present normal exam Respiratory: Present CTA bilaterally; Absent rhonchi, wheezes or crackles Cardiac: Present Reg Rate and Rhythm GI: Present soft, tenderness (Over incision, otherwise no significant tenderness.) and normal bowel sounds; Absent distention Comments:: Midline incision healing well, minimal erythema, half the martina been removed, Steri-Strips stable and in place Skin: Present intact; Absent cyanosis Neuro: Present alert, awake, oriented x 3 and moves all extremities Assessment and Plan *Assessment and plan (1) SBO (small bowel obstruction): Status: Acute Category: Medical Code(s): K56.609 - Unspecified intestinal obstruction, unspecified as to partial versus complete obstruction (2) S/P exploratory laparotomy: Status: Acute Category: Surgical Code(s): Z98.890 - Other specified postprocedural states (3) CAD (coronary artery disease), [place] coronary artery: Status: Acute Qualifiers: [place] vs. transplanted heart: [place] heart Associated angina: unspecified whether angina present Qualified Code(s): I25.10 - Atherosclerotic heart disease of [place] coronary artery without angina pectoris Category: Medical Code(s): I25.10 - Atherosclerotic heart disease of [place] coronary artery without angina pectoris (4) History of heart attack: Status: Acute Category: Medical Code(s): I25.2 - Old myocardial infarction (5) Depression: Status: Acute Qualifiers: Depression Type: unspecified Qualified Code(s): F32.9 - Major depressive disorder, single episode, unspecified Category: Medical Code(s): F32.9 - Major depressive disorder, single episode, unspecified Plan 58-year-old male with PMHx of CAD s/p stent, open appendectomy, and a prior history of small bowel obstruction managed nonoperatively. He states that he had developed abdominal pain in the mid abdomen about 2 days prior to admission. He has had obstipation and not passing gas. CT was showing high grade SBO. He had nausea and some vomiting. patient seen and evaluated post op. exploratory laparotomy with resection of ischemic bowel was conducted. resting comfortable. Tolerating as needed opiates and NSAIDs IV. NG out today. Continue NPO. Awaiting for bowel movements. Continues to require inpatient management. Pro blems addressed as follows: SBO s/p exploratory laparotomy w/ resection: Postop day 6 -Discussed case with surgery, having bowel movements, will advance diet to full liquids. Continue ambulating. -Discontinue morphine, received 1 dose yesterday. Tolerated Toradol with 2 doses yesterday. Pain overall doing better. - Continue Tylenol 650 mg every 6 hours as needed for moderate to severe pain -Has completed 6 days of Unasyn. Will discontinue at this time. White count has remained normal At 6.5. Hemoglobin stable at 13.2. -Kidney function normal with BUN 25, creatinine 0.6. Anticipate improvement with initiation of diet. Potassium 3.4. repeat CBC ordered for the morning along with CMP, magnesium. Patient is a smoker. No longer having wheeze, Weaned off oxygen, DuoNebs every 6 hours scheduled. Goal O2 sats greater 90%. Chronic conditions CAD s/p stent, Hx of heart attack depression [facility] med zinc losing Wellbutrin 150 mg twice daily Lipitor 40 mg nightly, Plavix 75 mg daily, Prozac 20 mg daily SCD for DVT ppx famotidine IV for GI protection Full code Full liquid diet
[2024-06-23] MEDS: FLUOXETINE 20MG CAPSULE 20 MG PO (11:31)
--- NOTE | 2024-06-23 15:51 | PC.NURSE ---
A&OX4. TOLERATING RA WELL. HAS BEEN UP INDEPENDENTLY AMBULATING IN ROOM AND HALLWAY, MULTIPLE TIMES. DOING VERY WELL. HAS A GOOD APPETITE AND TOLERATING FULL LIQUIDS. HAS NOT REQUESTED ANYTHING FOR PAIN. HALF OF THE REMAINING RENAE REMOVED THIS SHIFT WITH STERI STRIPS APPLIED. CDI. NO NEEDS OR C/O NOTED, VSS.
[2024-06-23 16:00] VITALS: BP 143/60; PULSE 62; RESP 16; TEMP 36.6; O2SAT 95
[2024-06-23] MEDS: KETOROLAC 30MG/ML VIAL 15 MG IV (18:15)
[2024-06-23 20:00] VITALS: BP 145/68; PULSE 56; RESP 16; TEMP 37.2; O2SAT 95
[2024-06-23] MEDS: SODIUM CHLORIDE 0.9% 10ML VIAL 8 ML IV (21:12)
[2024-06-23] MEDS: ATORVASTATIN 40MG TABLET 40 MG PO (21:14)
[2024-06-24 04:00] VITALS: BP 155/88; PULSE 59; RESP 18; TEMP 36.5; O2SAT 95; BMI 25.3
--- NOTE | 2024-06-24 05:12 | PC.NURSE ---
Pt is alert and oriented x4 and currently tolerating RA well. Pt has had no complaints, and denies pain. Pt incision has few martina and steri strips in place, and is slightly red but no noted infection, bowel sounds are active in all 4 quads, he continues to pass gas and had a medium bowel movement this shift. Pt has ambulated multiple times in hallway and room, and continues to tolerate liquids well. Pt has had no acute changes this shift to note.
[2024-06-24 06:57] LABS: Alanine Aminotransferase 63 U/L (12-78); Albumin Level 3.4 g/dl (3.5-5.0); Albumin/Globulin Ratio 1.2 (1.1-1.8); Alkaline Phosphatase 55 U/L (38-126); Anion Gap 9.1 mEq/L (5-15); Aspartate Amino Transferase 50 U/L (17-59); Bilirubin,Total 0.6 mg/dl (0.2-1.3); Blood Urea Nitrogen 18 mg/dl (9-20); Calcium 8.7 mg/dl (8.4-10.2); Carbon Dioxide 26 mmol/L (22.0-30.0); Chloride 106 mmol/L (98-107); Creatinine Clearance Estimated 129 mL/min (50-200); Estimated Glomerular Filt Rate 115 ml/min (>60); GFR (African American) 140 ML/MIN (>60); Globulin 2.9 g/dL (1.3-3.2); Glucose 124 mg/dl (74-100); Potassium 3.1 mmoL/L (3.5-5.1); Sodium 138 mmol/L (136-145); Total Protein,Serum 6.3 g/dl (6.3-8.2)
[2024-06-24 07:04] LABS: Basophils % 0.4 % (0.1-2.0); Eosinophils # 0.2 K/mm3 (0.0-0.4); Eosinophils % 2.2 % (0.1-12.0); Hemoglobin 13.2 g/dL (14.1-18.0); Lymphocytes # 1.1 K/mm3 (0.7-4.5); Lymphocytes % 15.5 % (10-50); Mean Corpuscular HGB Conc 33.1 g/dL (31.8-35.4); Mean Corpuscular Hemoglobin 30.8 pg (27.0-31.2); Mean Corpuscular Volume 93.1 fl (80-94); Mean Platelet Volume 8.9 fl (7.4-10.4); Monocytes # 0.4 K/mm3 (0.1-1.0); Monocytes % 5.6 % (1.7-9.3); Neutrophils # 5.4 K/mm3 (1.8-7.8); Neutrophils % 76.4 % (37.0-80.0); Platelet Count 304 K/mm3 (142-424)
--- NOTE | 2024-06-24 07:29 | P.PN_ITS ---
Subjective Patient reports: no new complaints, feels better and bowel movement Exam Data for Last 24 hours Vital signs and Labs for Last 24 Hours: Temp Pulse Resp BP Pulse Ox O2 Del Method O2 Flow Rate 97.7 F 59 L 18 155/88 H 95 Room Air 1 06/24/24 04:00 06/24/24 04:00 06/24/24 04:00 06/24/24 04:00 06/24/24 04:00 06/24/24 06:45 06/21/24 08:42 Laboratory Results - last 24 hr 06/23/24 05:52: Sodium 139, Potassium 3.4 L, Chloride 107, Carbon Dioxide 24, Anion Gap 11.4, BUN 25 H, Creatinine 0.60 L, Estimated Creat Clear 153, Estimated GFR 138, Est GFR ( Amer) 167, Glucose 110 H, Calcium 8.4, Magnesium 2.0 D, Total Bilirubin 0.6, AST 48 D, ALT 49 D, Alkaline Phosphatase 49, Total Protein 6.1 L, Albumin 3.3 L, Globulin 2.8, Albumin/Globulin Ratio 1.2 06/24/24 05:55: WBC 7.0, RBC 4.30 L, Hgb 13.2 L, Hct 40.0 L, MCV 93.1, MCH 30.8, MCHC 33.1, RDW 14.0, Plt Count 304, MPV 8.9, Neut % (Auto) 76.4, Lymph % (Auto) 15.5, Blanco % (Auto) 5.6, Eos % (Auto) 2.2, Baso % (Auto) 0.4, Neut # (Auto) 5.4, Lymph # (Auto) 1.1, Blanco # (Auto) 0.4, Eos # (Auto) 0.2, Baso # (Auto) 0.0, S odium 138, Potassium 3.1 L, Chloride 106, Carbon Dioxide 26, Anion Gap 9.1, BUN 18 D, Creatinine 0.70, Estimated Creat Clear 129, Estimated GFR 115, Est GFR ( Amer) 140, Glucose 124 H, Calcium 8.7, Total Bilirubin 0.6, AST 50, ALT 63 D, Alkaline Phosphatase 55, Total Protein 6.3, Albumin 3.4 L, Globulin 2.9, Albumin/Globulin Ratio 1.2 I & O for Last 24 hours: Intake & Output 06/21/24 06/22/24 06/23/24 06/24/24 11:59 11:59 11:59 11:59 Intake Total 1224 / 1224 300 / 300 720 / 720 1100 / 1100 Output Total 1205 / 1205 1400 / 1400 0 / 0 Balance -1100 / -1100 720 / 720 1100 / 1100 Weight 188 lb 4.8 oz 180 lb 11.2 oz 179 lb 14.4 oz 177 lb 1.6 oz Constitutional Constitutional: no acute distress *Routine Respiratory Exam Respiratory: Absent respiratory distress *Routine Cardiovascular Exam Cardiovascular: Absent tachycardia *Routine Abdominal Exam Abdominal: Present soft Comments: Incision healing without evidence of infection Progress Note: A&P Assessment and plan (1) SBO (small bowel obstruction): Status: Acute (2) S/P exploratory laparotomy: Status: Acute Assessment and Plan Assessment and Plan for All Diagnoses:: Bowel function normalizing Okay from surgical standpoint for discharge home with close outpatient follow- up. The patient will continue to advance diet at home.
[2024-06-24 08:00] VITALS: BP 144/67; PULSE 59; RESP 17; TEMP 36.8; O2SAT 96
[2024-06-24] MEDS: FLUOXETINE 20MG CAPSULE 20 MG PO (08:19)
[2024-06-24] MEDS: FAMOTIDINE 20MG/2ML VIAL 20 MG IV (08:19)
[2024-06-24] MEDS: SODIUM CHLORIDE 0.9% 10ML VIAL 8 ML IV (08:19)
[2024-06-24] MEDS: buPROPion HCl SR 150MG TAB 150 MG PO (08:19)
--- NOTE | 2024-06-24 08:51 | EXP.DC.SUM ---
General Admission date:: 06/17/24 Discharge date: 06/24/24 HPI HPI HPI: Patient is a 58-year-old male with PMHx of CAD s/p stent, open appendectomy, and a prior history of small bowel obstruction managed nonoperatively. He states that he had developed abdominal pain in the mid abdomen about 2 days ago described as cramping. He has had obstipation and not passing gas. He had nausea and some vomiting. Due to the persistence of his pain he presented to the emergency department. He was found to have appreciable tenderness on examination. Surgical consultation was obtained. In the interim CT report returns with findings of high-grade small bowel obstruction involving mid jejunum with transition point associated with mildly thickened small bowel. emergently taken to OR for exploratory laparotomy. Hospital Course Hospital Course Hospital Course: 58-year-old male with PMHx of CAD s/p stent, open appendectomy, and a prior history of small bowel obstruction managed nonoperatively. He states that he had developed abdominal pain in the mid abdomen about 2 days prior to admission. He has had obstipation and not passing gas. CT was showing high grade SBO. He had nausea and some vomiting. Taken for exploratory laparotomy on 06/17. Found to have nonviable portion of small bowel. It was removed with end-to-end anastomosis. Patient was monitored until bowels began moving. Tolerating p.o. intake. Having bowel movements. Stable to discharge home with close follow-up. Problems addressed as follows: Patient seen and evaluated post op. exploratory laparotomy with resection of ischemic bowel was conducted. resting comfortable. Tolerating as needed opiates and NSAIDs IV. NG out today. Continue NPO. Awaiting for bowel movements. Continues to require inpatient management. Problems addressed as follows: SBO s/p exploratory laparotomy w/ resection of ischemic bowel Patient presented with abdominal pain, nausea. Evaluated by surgery, concern for shandra obstruction and peritonitis. Taken to the OR for further management. Found to have ischemic bowel. Resection of nonviable portion performed. End anastomosis created. Patient admitted for further management after surgery. Necessitated prolonged course while awaiting bowels to begin functioning. Took several days but after 5 to 6 days he began having flatus, bowel movements. Able to advance diet rather quickly. Tolerating full liquid diet by day of discharge with 1-2 bowel movements a day. Pain more or less resolved. Still having some mild pain at surgical site but no significant abdominal pain. Ambulating frequently. Stable on room air. Still has a few martina that need to be removed. Will have close follow-up with Dr. Nation next week for further management. Incision healing well. Completed 6 days of empiric antibiotics with Unasyn. White cell count normal for over 72 hours. No indication for further antibiotics at discharge. Advance to regular diet. Stable to discharge home. Patient is a smoker. Had wheeze initially on exam. Able to wean off oxygen after surgery. DuoNebs as needed, able to maintain sats above 90% for several days prior to discharge. No oxygen at discharge. Chronic conditions CAD s/p stent, Hx of heart attack depression Resumed home meds prior to discharge. Continue wellbutrin 150 mg twice daily, Lipitor 40 mg nightly, Plavix 75 mg daily, Prozac 20 mg daily Exam Data for Last 24 hours Vital signs and Labs for Last 24 Hours: Temp Pulse Resp BP Pulse Ox O2 Del Method O2 Flow Rate 98.2 F 59 L 17 144/67 H 96 Room Air 1 06/24/24 08:00 06/24/24 08:00 06/24/24 08:00 06/24/24 08:00 06/24/24 08:00 06/24/24 08:00 06/21/24 08:42 Laboratory Results - last 24 hr 06/24/24 05:55: WBC 7.0, RBC 4.30 L, Hgb 13.2 L, Hct 40.0 L, MCV 93.1, MCH 30.8, MCHC 33.1, RDW 14.0, Plt Count 304, MPV 8.9, Neut % (Auto) 76.4, Lymph % (Auto) 15.5, Sawyer % (Auto) 5.6, Eos % (Auto) 2.2, Baso % (Auto) 0.4, Neut # (Auto) 5.4, Lymph # (Auto) 1.1, Sawyer # (Auto) 0.4, Eos # (Auto) 0.2, Baso # (Auto) 0.0, Sodium 138, Potassium 3.1 L, Chloride 106, Carbon Dioxide 26, Anion Gap 9.1, BUN 18 D, Creatinine 0.70, Estimated Creat Clear 129, Estimated GFR 115, Est GFR ( Amer) 140, Glucose 124 H, Calcium 8.7, Magnesium 2.0, Total Bilirubin 0.6, AST 50, ALT 63 D, Alkaline Phosphatase 55, Total Protein 6.3, Albumin 3.4 L, Globulin 2.9, Albumin/Globulin Ratio 1.2 I & O for Last 24 hours: Intake & Output 06/21/24 06/22/24 06/23/24 06/24/24 23:59 23:59 23:59 23:59 Intake Total 694 / 794 400 / 560 1260 / 1620 360 / 360 Output Total 2130 / 2330 200 / 200 0 / 0 Balance -1436 / -1536 200 / 360 1260 / 1620 360 / 360 Weight 85.411 kg 81.964 kg 81.601 kg 80.331 kg Constitutional Constitutional: no acute distress, average body habitus and cooperative *Routine HEENT Exam Head: Present normocephalic Eye: Present EOMI and PERRL ENT: Present mucous membranes moist *Routine Neck Exam Neck: Present supple; Absent lymphadenopathy *Routine Respiratory Exam Respiratory: Present CTA bilaterally; Absent respiratory distress, rhonchi, stridor, wheezes or crackles *Routine Cardiovascular Exam Cardiovascular: Present RRR *Routine Abdominal Exam Abdominal: Present soft, normoactive bowel sounds and tenderness (Minimal, around surgical site) Comments: Midline incision healing well, no drainage. [address] *Routine Rectal Exam Patient deferred: visual exam *Routine Exam Patient deferred: penile exam *Routine Extremities Exam Extremities: Absent cyanosis, clubbing or edema *Routine Skin Exam Skin: Present warm; Absent rash *Routine Neurological Exam Neurological: Present alert, oriented X3 and moving all extremities; Absent altered mental status Results Data Completed and Pending Labs on day of discharge: Labs from last 24 hours 06/24/24 05:55 WBC 7.0 RBC 4.30 L Hgb 13.2 L Hct 40.0 L MCV 93.1 MCH 30.8 MCHC 33.1 RDW 14.0 Plt Count 304 MPV 8.9 Neut % (Auto) 76.4 Lymph % (Auto) 15.5 Sawyer % (Auto) 5.6 Eos % (Auto) 2.2 Baso % (Auto) 0.4 Neut # (Auto) 5.4 Lymph # (Auto) 1.1 Sawyer # (Auto) 0.4 Eos # (Auto) 0.2 Baso # (Auto) 0.0 Sodium 138 Potassium 3.1 L Chloride 106 Carbon Dioxide 26 Anion Gap 9.1 BUN 18 D Creatinine 0.70 Estimated Creat Clear 129 Estimated GFR 115 Est GFR ( Amer) 140 Glucose 124 H Calcium 8.7 Magnesium 2.0 Total Bilirubin 0.6 AST 50 ALT 63 D Alkaline Phosphatase 55 Total Protein 6.3 Albumin 3.4 L Globulin 2.9 Albumin/Globulin Ratio 1.2 DS: Diagnosis Discharge Diagnosis (1) SBO (small bowel obstruction): Status: Acute Code(s): K56.609 - Unspecified intestinal obstruction, unspecified as to partial versus complete obstruction (2) S/P exploratory laparotomy: Status: Acute Code(s): Z98.890 - Other specified postprocedural states Meds Home Medications and Allergies Home Medications ?Medication ?Instructions ?Recorded ?Confirmed ?Type atorvastatin 40 mg tablet 40 mg PO HS #90 tabs 01/07/24 06/17/24 Rx bupropion HCl 150 mg tablet,12 hr 150 mg PO BID #180 ea 01/07/24 06/17/24 Rx sustained-release (Wellbutrin SR) clopidogrel 75 mg tablet 75 mg PO DAILY #90 tabs 01/07/24 06/17/24 Rx sildenafil 100 mg tablet (Viagra) 100 mg PO DAILY PRN sexual 01/07/24 06/17/24 Rx activity #10 tabs fluoxetine 20 mg capsule 20 mg PO DAILY 06/17/24 06/17/24 History acetaminophen 325 mg tablet 650 mg (2 x 325 mg) PO Q6HP PRN 06/24/24 Rx Fever Or Mild Pain (1-3) #0 tabs New Prescriptions to Start Prescriptions: Allergies Allergy/AdvReac Type Severity Reaction Status Date / Time No Known Allergies Allergy Verified 06/17/24 13:24 Discharge Plan Disposition Patient Disposition: Home, Self-Care Condition: Fair Discharge Order Discharge Orders: Discharge Order (Routine); Ordered 06/24/24 Ordered By: Rashada Choi Follow up Plan Follow up with: Jose Antonio Nation MD [Staff Physician] - 06/29/24 1:45 pm () Prescriptions/Medication Reconciliation: New acetaminophen 325 mg Tablet 650 mg PO Q6HP PRN (Reason: Fever Or Mild Pain (1-3)) Qty: 0 0RF Rx Instructions: product picker OTC Continued atorvastatin 40 mg tablet 40 mg PO HS Qty: 90 3RF clopidogrel 75 mg tablet 75 mg PO DAILY Qty: 90 3RF bupropion HCl [Wellbutrin SR] 150 mg tablet sustained-release 12 hr 150 mg PO BID Qty: 180 3RF sildenafil [Viagra] 100 mg tablet 100 mg PO DAILY PRN (Reason: sexual activity) Qty: 10 12RF Rx Instructions: administer 30 minutes to 4 hours before activity fluoxetine 20 mg capsule 20 mg PO DAILY Rx Instructions: TAKE 1 CAPSULE BY MOUTH DAILY Problem Reconciliation Problems Reviewed?: Yes Patient Discharge Instructions ACTIVITY: Continue current activity DIET: continue same diet and advance to your usual diet Patient Instructions: DI for Small Bowel Obstruction, DI for Exploratory Laparotomy, DI for Surgical Site Infection, Catheter-Associated Urinary Tract Infection Print Language: Eritrean Providers Primary Care Provider: Ceasar Myles Admit Provider: Rashaad Choi Attending Provider: Rashaad Choi
[2024-06-24] MEDS: POTASSIUM CHLORIDE 20MEQ TAB 40 MEQ PO (09:06)
--- NOTE | 2024-06-25 10:54 | CARE MANAGER ---
Called and spoke with patient regarding recent discharge. Patient stated that he is feeling well and was aware of scheduled f/u appt. No concerns/questions voiced at time of call.
== END 2024-06-24 09:53 | disposition home or self-care (01) | DRG 331 ==
LOC: ER 14:50 → 2ND 17:08
PROVIDERS: Surgery; Admitting Provider Internal Medicine Adolescent Medicine; Emergency Provider Emergency Medicine; PCP Family Medicine; Visit Provider Internal Medicine Adolescent Medicine
PROC: 0DN80ZZ Release Small Intestine, Open Approach (ICD-10-PCS; CPT 49000; principal; 2024-06-17 16:00)
DX: I25.10 Atherosclerotic heart disease of native coronary artery without angina pectoris (principal); F32.9 Major depressive disorder, single episode, unspecified; K56.52 Intestinal adhesions [bands] with complete obstruction; I25.2 Old myocardial infarction; Z95.5 Presence of coronary angioplasty implant and graft; F17.200 Nicotine dependence, unspecified, uncomplicated; Z79.899 Other long term (current) drug therapy
CPT/HCPCS: 44120; 44005; 36415; 74018; 74177; 80048; 80053; 81001; 83605; 83690; 83735; 85007; 85025; 85027; 93005; 94640; 97162; 97165; 99291; J0131; J0295; J1170; J1885; J1940; J2175; J2250; J2270; J2405; J3010; J7120; J7620; Q9967; S0028

== ENCOUNTER 2024-06-27 00:33 | Emergency (ER) | payer SELFPAY ==
[2024-06-27 00:34] VITALS: BP 120/77; PULSE 91; RESP 20; TEMP 36.8; O2SAT 95; BMI 24.5
--- NOTE | 2024-06-27 00:41 | HMH.EDGENADL ---
Discharge Plan Disposition Patient Disposition: Home, Self-Care Prescriptions Prescriptions: No Action atorvastatin 40 mg tablet 40 mg PO HS Qty: 90 3RF clopidogrel 75 mg tablet 75 mg PO DAILY Qty: 90 3RF bupropion HCl [Wellbutrin SR] 150 mg tablet sustained-release 12 hr 150 mg PO BID Qty: 180 3RF sildenafil [Viagra] 100 mg tablet 100 mg PO DAILY PRN (Reason: sexual activity) Qty: 10 12RF Rx Instructions: administer 30 minutes to 4 hours before activity oxycodone-acetaminophen [Percocet] 5-325 mg tablet 1 tab PO Q6H PRN (Reason: pain) Qty: 45 0RF fluoxetine 20 mg capsule 20 mg PO DAILY Rx Instructions: TAKE 1 CAPSULE BY MOUTH DAILY acetaminophen 325 mg Tablet 650 mg PO Q6HP PRN (Reason: Fever Or Mild Pain (1-3)) Qty: 0 0RF Rx Instructions: picking tech OTC Referrals Follow up/Referrals: Ceasar Myles MD [Primary Care Provider] - See instructions Activity Restrictions/Add. Instructions Additional Instructions/Restrictions: Please follow-up with your general surgeon. Please return to the emergency department if you develop any new or worsening symptoms or become concerned for your health. Continue twice daily dressing changes. Keep the area clean and covered. Monitor for worsening of the redness as this could be a sign of infection that would require antibiotics. Clinical Impressions Clinical Impression: Abdominal wound dehiscence Qualifiers: Encounter type: initial encounter Qualified Code(s): T81.30XA - Disruption of wound, unspecified, initial encounter Instructions Patient Instructions: DI for Laceration Repair Print Language Print Language: Puerto Rican Discharge ED Provider: Derik Suresh Adult HPI General Chief complaint: Wound/Laceration Stated complaint: leaking from abd Time Seen by Provider: 06/27/24 00:41 History of Present Illness HPI narrative: 58-year-old male with history of recent small obstruction status post small bowel resection presents for wound check. He reports that he started having some leaking from the upper portion of his abdominal incision earlier today. Denies any recent fever or illness. Reports that he has been relatively active. Reports that he has been having some trouble eating but has been able to tolerate liquids. He has follow-up in 2 days with his general surgeon. Surgery happened approximately 10 days ago. Related Data Home Medications ?Medication ?Instructions ?Recorded ?Confirmed fluoxetine 20 mg capsule 20 mg PO DAILY 06/17/24 06/17/24 Previous Rx's ?Medication ?Instructions ?Recorded atorvastatin 40 mg tablet 40 mg PO HS #90 tabs 01/07/24 bupropion HCl 150 mg tablet,12 hr 150 mg PO BID #180 ea 01/07/24 sustained-release (Wellbutrin SR) clopidogrel 75 mg tablet 75 mg PO DAILY #90 tabs 01/07/24 sildenafil 100 mg tablet (Viagra) 100 mg PO DAILY PRN sexual 01/07/24 activity #10 tabs acetaminophen 325 mg tablet 650 mg (2 x 325 mg) PO Q6HP PRN 06/24/24 Fever Or Mild Pain (1-3) #0 tabs oxycodone-acetaminophen 5 mg-325 1 tab PO Q6H PRN pain #45 tabs 06/25/24 mg tablet (Percocet) Allergies Allergy/AdvReac Type Severity Reaction Status Date / Time No Known Allergies Allergy Verified 06/17/24 13:24 [facility] Disclaimer: The information contained in this section may have been updated after the patient was seen, as this information can be updated by other users. Medical History Depression Erosive osteoarthritis of multiple sites Heart attack Surgical History Hx of appendectomy Family History Other Diabetes Social History (Updated 06/17/24 @ 22:32 by Yolanda Ndiaye RN) Smoking Status: Former smoker alcohol intake: current alcohol intake frequency: holidays/special occasions only substance use type: denies use current occupational status: employed Travel in the last 8 weeks: None household members: none housing: apartment ROS Obtained: Yes All systems reviewed & no additional complaints except as documented Physical Exam General General appearance: alert and in no apparent distress Head Head exam: atraumatic and normocephalic Eye Eye exam: Present normal appearance, PERRL and EOMI ENT ENT exam: Present normal oropharynx and normal external ear exam Neck Neck exam: Present normal inspection and full ROM Chest Chest inspection: Present normal inspection and symmetric chest wall rise; Absent tenderness Respiratory Respiratory exam: Present normal lung sounds bilaterally; Absent respiratory distress Cardiovascular Cardiovascular exam: Present regular rate and normal rhythm Abdominal Exam Abdominal exam: Present soft; Absent distention, tenderness or guarding Comment: Patient has small dehiscence at the upper portion of his midline abdominal incision. Approximately 1 cm length. Minimal drainage from the site noted. Mild surrounding erythema Extremities Exam Extremities exam: Present normal inspection; Absent edema or joint swelling Back Exam Back exam: Present normal inspection; Absent tenderness Neurological Exam Neurological exam: Present alert and oriented X3; Absent motor sensory deficit Psychiatric Psychiatric exam: Present normal affect and normal mood Skin Skin exam: Present warm, dry and normal color Lymphatic Lymphatic Findings: no adenopathy Medical Decision Making Medical Records Medical records reviewed: Yes I reviewed the patient's medical records. [place] Inquiry Pt receiving controlled substance: No Chal[place] was queried for this patient: No Vital Signs: 06/27/24 00:34 06/27/24 01:07 Temperature 98.2 F 99.3 F Temperature Source Oral Pulse Rate 63 Pulse Rate [Right] 91 H Respiratory Rate 20 16 Blood Pressure 113/78 Blood Pressure [Right Arm] 120/77 Blood Pressure Mean [Right Arm] 91 Blood Pressure Source [Right Arm] Automatic Cuff Blood Pressure Position [Right Arm] Sitting 02 Sat by Pulse Oximetry 95 Oxygen Delivery Method Room Air Room Air Lab Data Lab results reviewed: Yes I reviewed the patient's lab results. Medical Decision Narrative: 58-year-old male with obstruction 10 days ago status post small bowel resection presents for wound check. History was obtained via interactive discussion with patient. On arrival, patient is [afebrile, hemodynamically stable, satting appropriately, alert, oriented x4, GCS 15], moving all extremities spontaneously. Full physical exam performed and significant for small amount of abdominal wound dehiscence near the superior portion of the incision. A single staple was removed. When probed, it does not probe deeply, does probe slightly superiorly. Differential includes but is not limited to abscess, cellulitis, wound dehiscence Bedside ultrasound was performed and I did not note any evidence of large abscess or fluid collection. CT of the abdomen pelvis and antibiotic therapy was considered, but deemed unnecessary due to history and exam. The wound was packed with a small piece of wet sterile packing strips. Family and patient were given instructions regarding daily dressing changes. They were instructed to follow-up with his previously scheduled follow-up appointment on Friday. Given patient history, exam and workup, patient's presentation most likely represents postoperative abdominal wound dehiscence. Procedures Risk/Benefits of Procedure(s) Were Explained: Yes Limited Ultrasound Indication:: Limited soft tissue ultrasound Indication: Redness Identified structures: Location: Midline abdominal incision Findings: No underlying fluid collection noted, no significant cobblestoning Impression: No evidence of abscess Images were saved to permanent archive The study was technically adequate Soft Tissue CPT Codes: CPT Abdominal Wall: 45041-02 This study was performed by me, and I personally interpreted all images/videos. Critical Care Critical Care Time Critical Care Time: No
[2024-06-27 01:07] VITALS: BP 113/78; PULSE 63; RESP 16; TEMP 37.4; O2SAT 91
== END 2024-06-27 01:02 | disposition home or self-care (01) ==
PROVIDERS: Emergency Provider Emergency Medicine; PCP Family Medicine
DX: T81.30XA Disruption of wound, unspecified, initial encounter (principal); Z90.49 Acquired absence of other specified parts of digestive tract
CPT/HCPCS: 99281

== ENCOUNTER 2024-06-28 15:11 | Emergency (ER) | payer MEDICAID, SELFPAY ==
[2024-06-28 15:13] VITALS: BP 138/90; PULSE 84; RESP 20; TEMP 36.9; O2SAT 96; BMI 24.5
[2024-06-28 15:26] VITALS: BP 138/90; PULSE 84; O2SAT 95
--- NOTE | 2024-06-28 15:26 | PC.NURSE ---
dr elizabeth at bedside
--- NOTE | 2024-06-28 15:37 | CT_ITS ---
PROCEDURE INFORMATION: Exam: CT Abdomen And Pelvis With Contrast Exam date and time: 06/28/2024 5:15 PM Age: 58 years old Clinical indication: Nausea and vomiting; Additional info: Recent surgery, worsening abd pain n/v TECHNIQUE: Imaging protocol: Computed tomography of the abdomen and pelvis with contrast. Radiation optimization: All CT scans at this facility use at least one of these dose optimization techniques: automated exposure control; mA and/or kV adjustment per patient size (includes targeted exams where dose is matched to clinical indication); or iterative reconstruction. Contrast material: ISOVUE; Contrast volume: 75 ml; Contrast route: IV; COMPARISON: No relevant prior studies available. FINDINGS: Lungs: There are scattered calcified granulomas in the lungs which most likely reflect prior granulomatous disease. Scattered areas of bronchial wall thickening which are likely chronic inflammatory. A few areas of subpleural reticulation are noted, nonspecific. Liver: There are calcifications in the liver which most likely reflect calcified granulomas. Gallbladder and biliary ducts: No acute process. Pancreas: Normal. Spleen: There are multiple calcifications in the spleen most likely reflects small granulomas. Adrenal glands: 2.9 cm left adrenal mass is unchanged from recent prior study Kidneys and ureters: There are no soft tissue renal masses or hydronephrosis. Stomach and bowel: Mild fluid distension of small bowel loops extends to the anastomosis. Appendix: No evidence of appendicitis. Intraperitoneal space: Unremarkable. Vasculature: There is atherosclerotic disease of the visualized aorta and its major branch vessels. Lymph nodes: There are calcified mediastinal lymph nodes likely reflecting prior granulomatous disease. Urinary bladder: Unremarkable as visualized. Reproductive: No acute process. Bones/joints: There is diffuse degenerative disease of the visualized osseous structures. Soft tissues: Changes of recent laparotomy and small bowel resection. IMPRESSION: 1. Interval small bowel resection with fluid distension of proximal small bowel loops extending to the anastomosis. Findings may reflect ileus in the postoperative setting but obstruction cannot be completely excluded by imaging. 2. Indeterminate adrenal nodule(s) as detailed above, statistically most likely to reflect adenoma but technically indeterminate on this study. Non-emergent adrenal CT or MRI is recommended. (Reference: Lena) REFERENCES: Lena TIJERINA et al. Management of Incidental Adrenal Masses: A White Paper of the ACR Incidental Findings Committee. J Am Remigio Radiol. 2017;14(8):6757-2924.
--- NOTE | 2024-06-28 15:39 | HMH.EDGENADL ---
Discharge Plan Disposition Patient Disposition: Home, Self-Care Prescriptions Prescriptions: New ondansetron 4 mg tablet,disintegrating 4 mg PO Q6H PRN (Reason: nausea and vomiting) 5 Days Qty: 20 0RF No Action atorvastatin 40 mg tablet 40 mg PO HS Qty: 90 3RF clopidogrel 75 mg tablet 75 mg PO DAILY Qty: 90 3RF bupropion HCl [Wellbutrin SR] 150 mg tablet sustained-release 12 hr 150 mg PO BID Qty: 180 3RF sildenafil [Viagra] 100 mg tablet 100 mg PO DAILY PRN (Reason: sexual activity) Qty: 10 12RF Rx Instructions: administer 30 minutes to 4 hours before activity oxycodone-acetaminophen [Percocet] 5-325 mg tablet 1 tab PO Q6H PRN (Reason: pain) Qty: 45 0RF fluoxetine 20 mg capsule 20 mg PO DAILY Rx Instructions: TAKE 1 CAPSULE BY MOUTH DAILY acetaminophen 325 mg Tablet 650 mg PO Q6HP PRN (Reason: Fever Or Mild Pain (1-3)) Qty: 0 0RF Rx Instructions: picking 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 Instructions Additional Instructions/Restrictions: No emergent medical condition identified today with your abdominal evaluation. Please take your nausea medicine you may also take [id number] Pepcid as needed for heartburn. Keep your follow-up appointment tomorrow with your surgeon and return with any significant worsening symptoms or inability to keep fluids down. Clinical Impressions Clinical Impression: Nausea vomiting and diarrhea, Abdominal wound dehiscence, Post-operative pain, Unintentional weight loss Instructions Patient Instructions: DI for Diarrhea and Traveler's Diarrhea -- Adult, DI for Diarrhea and Traveler's Diarrhea -- Child, DI for Nausea -- Adult, DI for Nausea -- Child Print Language Print Language: [place] Discharge ED Provider: [facility] HPI General Chief complaint: Nausea/Vomiting/Diarrhea Stated complaint: Bowel surgery 06/[address] Nation,sent by [facility] Time Seen by Provider: 06/28/24 15:25 Mode of Arrival: Ambulatory Source of Information: Patient and Spouse Limitations: No Limitations Description of Symptoms (Recalled from ER Triage Doc. by RN): pt had surgery here by on 06/17 with 6-8 inches removed, pt is here today for N/V/D and wound healing on incision as well as he has lost 30 lbs History of Present Illness HPI narrative: Patient is a 58-year-old male presenting today with worsening abdominal pain nausea vomiting and diarrhea following recent surgery. He was operated on [address] Nation for small bowel obstruction in the operative note states that he had primary reanastomosis and his bowel obstruction was secondary to extensive adhesions. Patient states that he was having some bowel movements and feeling well upon being discharged however has had increasing worsening abdominal pain still is having loose bowel movements and significant nausea and vomiting states he is lost about 20 pounds since that surgery. Also has known wound dehiscence at the superiormost aspect of his incision but he has been followed for that and no one is concerned about that no fevers or chills or any other symptoms associate with this. Related Data Home Medications ?Medication ?Instructions ?Recorded ?Confirmed fluoxetine 20 mg capsule 20 mg PO DAILY 06/17/24 06/28/24 Previous Rx's ?Medication ?Instructions ?Recorded atorvastatin 40 mg tablet 40 mg PO HS #90 tabs 01/07/24 bupropion HCl 150 mg tablet,12 hr 150 mg PO BID #180 ea 01/07/24 sustained-release (Wellbutrin SR) clopidogrel 75 mg tablet 75 mg PO DAILY #90 tabs 01/07/24 sildenafil 100 mg tablet (Viagra) 100 mg PO DAILY PRN sexual 01/07/24 activity #10 tabs acetaminophen 325 mg tablet 650 mg (2 x 325 mg) PO Q6HP PRN 06/24/24 Fever Or Mild Pain (1-3) #0 tabs oxycodone-acetaminophen 5 mg-325 1 tab PO Q6H PRN pain #45 tabs 06/25/24 mg tablet (Percocet) ondansetron 4 mg disintegrating 4 mg PO Q6H PRN nausea and 06/28/24 tablet vomiting 5 days #20 tabs Allergies Allergy/AdvReac Type Severity Reaction Status Date / Time No Known Allergies Allergy Verified 06/28/24 13:49 [facility] Disclaimer: The information contained in this section may have been updated after the patient was seen, as this information can be updated by other users. Medical History Bowel obstruction History of heart attack Heart attack Depression Erosive osteoarthritis of multiple sites Surgical History Hx of appendectomy Family History Other Diabetes Social History Smoking Status: Former smoker alcohol intake: current alcohol intake frequency: holidays/special occasions only substance use type: denies use current occupational status: employed Travel in the last 8 weeks: None household members: none housing: apartment ROS Obtained: Yes All systems reviewed & no additional complaints except as documented Physical Exam General General appearance: alert and in no apparent distress Respiratory Respiratory exam: Present normal lung sounds bilaterally; Absent respiratory distress Cardiovascular Cardiovascular exam: Present regular rate Abdominal Exam Abdominal exam: Present soft, tenderness (Diffusely tender) and other (There is a 2 cm superior wound dehiscence) Neurological Exam Neurological exam: Present alert and oriented X3 Medical Decision Making [place] Inquiry Pt receiving controlled substance: No Vital Signs: 06/28/24 15:13 06/28/24 15:26 06/28/24 16:07 Temperature 98.5 F Temperature Source Oral Pulse Rate 84 81 Pulse Rate [Right Radial] 84 Respiratory Rate 20 Blood Pressure 138/90 135/79 Blood Pressure [Right Arm] 138/90 Blood Pressure Mean 102 97 Blood Pressure Mean [Right Arm] 106 02 Sat by Pulse Oximetry 96 95 95 Oxygen Delivery Method Room Air Room Air Room Air 06/28/24 16:30 06/28/24 17:00 Temperature Temperature Source Pulse Rate 71 71 Pulse Rate [Right Radial] Respiratory Rate 18 20 Blood Pressure 113/74 126/71 Blood Pressure [Right Arm] Blood Pressure Mean Blood Pressure Mean [Right Arm] 02 Sat by Pulse Oximetry 95 96 Oxygen Delivery Method Room Air Room Air Lab Data Lab results reviewed: Yes I reviewed the patient's lab results. Lab Results 06/28/24 15:53: WBC 8.5, RBC 4.86, Hgb 15.0, Hct 45.5, MCV 93.5, MCH 30.8, MCHC 33.0, RDW 13.5, Plt Count 434 H, MPV 8.5, Neut % (Auto) 71.0, Lymph % (Auto) 23.4, [place] % (Auto) 4.4, Eos % (Auto) 0.6, Baso % (Auto) 0.6, Neut # (Auto) 6.0, Lymph # (Auto) 2.0, [place] # (Auto) 0.4, Eos # (Auto) 0.1, Baso # (Auto) 0.1, Sodium 138, Potassium 3.7, Chloride 102, Carbon Dioxide 27, Anion Gap 12.7, BUN 25 H, Creatinine 0.90, Estimated Creat Clear 97, Estimated GFR 86, Est GFR ( Amer) 105, Glucose 127 H, Lactate 1.1, Calcium 9.2, Total Bilirubin 0.8, AST 46, ALT 70, Alkaline Phosphatase 72, Total Protein 7.3, Albumin 4.0, Globulin 3.3 H, Albumin/Globulin Ratio 1.2, Lipase 341 H 06/28/24 15:53 06/28/24 15:53 Orders (Tests/Meds): ED MEDICATIONS Generic Name Dose Route Start Last Admin Trade Name Freq PRN Reason Stop Dose Admin Ondansetron HCl 4 mg 06/28/24 18:33 Ondansetron 4mg/2ml Vial IV 06/28/24 18:34 ONCE ONE Discontinued Medications Generic Name Dose Route Start Last Admin Trade Name Freq PRN Reason Stop Dose Admin Acetaminophen 1,000 mg 06/28/24 15:37 06/28/24 16:03 Acetaminophen 1,000mg/100ml Vial IV 06/28/24 15:38 1,000 mg ONCE ONE Administration Lactated Ringer's 1,000 mls @ 999 mls/hr 06/28/24 15:45 06/28/24 16:03 Lactated Ringer's 1000 Ml Bag IV 06/28/24 16:45 999 mls/hr .Q1H1M SHARON Administration Iopamidol 75 ml 06/28/24 17:14 06/28/24 17:15 Iopamidol-370 (76%);100ml Bottle IV 06/28/24 17:15 75 ml ONCE ONE Administration Ondansetron HCl 4 mg 06/28/24 15:37 06/28/24 16:03 Ondansetron 4mg/2ml Vial IV 06/28/24 15:38 4 mg ONCE ONE Administration Sodium Chloride 10 ml 06/28/24 17:14 06/28/24 17:15 Sodium Chloride 0.9% 10ml Syr (Rad Only) IV 06/28/24 17:15 10 ml ONCE ONE Administration ORDERS Category Date Time Status CT abdomen pelvis w con Stat Cat Scan 06/28/24 15:37 Completed CBC w/Auto Diff [Complete Blood Count Auto Diff] Stat Lab 06/28/24 15:53 Completed CMP [Comprehensive Metabolic Panel] Stat Lab 06/28/24 15:53 Completed Lactic Acid Stat Lab 06/28/24 15:53 Completed Lipase Stat Lab 06/28/24 15:53 Completed Medical Decision Narrative: Patient is a 58-year-old several weeks postoperative from recent small bowel resection from a bowel obstruction from adhesions. He has worsening abdominal pain nausea vomiting diarrhea has significant tenderness on my exam we will repeat a CT scan today for evaluation of postoperative complications such as recurrent obstruction intra-abdominal infection etc. Pain medicine nausea medicine IV fluids and labs have been ordered will reassess Reassessment 6:35 PM serial abdominal exams benign patient feeling much better after IV acetaminophen and Zofran. CT scan performed which I first interpreted also reviewed radiology images no acute surgical pathology found on the read possibly a minor ileus but nothing specific. He has follow-up tomorrow with his surgeon. I have prescribed him Zofran and advised that he take protein and calorie dense fluids at home such as boost. He will keep his follow-up appointment tomorrow return with any significant worsening of symptoms he was discharged in improved and stable condition. Labs otherwise unremarkable. Critical Care Critical Care Time Critical Care Time: No
[2024-06-28] MEDS: ACETAMINOPHEN 1,000MG/100ML VIAL 1000 MG IV (16:03)
[2024-06-28] MEDS: LACTATED RINGERS 1000ML 1,000 ML 999 ML IV (16:03)
[2024-06-28] MEDS: ONDANSETRON 4MG/2ML VIAL 4 MG IV ×2 (16:03→18:36)
[2024-06-28 16:05] LABS: Basophils # 0.1 K/mm3 (0-0.2); Basophils % 0.6 % (0.1-2.0); Eosinophils # 0.1 K/mm3 (0.0-0.4); Eosinophils % 0.6 % (0.1-12.0); Hematocrit 45.5 % (42.0-52.0); Lymphocytes % 23.4 % (10-50); Mean Corpuscular Hemoglobin 30.8 pg (27.0-31.2); Mean Corpuscular Volume 93.5 fl (80-94); Mean Platelet Volume 8.5 fl (7.4-10.4); Monocytes # 0.4 K/mm3 (0.1-1.0); Monocytes % 4.4 % (1.7-9.3); Platelet Count 434 K/mm3 (142-424); Red Blood Count 4.86 M/mm3 (4.60-6.20); Red Cell Distribution Width 13.5 % (11.5-17.5); White Blood Count 8.5 K/mm3 (4.8-10.8)
[2024-06-28 16:07] VITALS: BP 135/79; PULSE 81; O2SAT 95
[2024-06-28 16:12] LABS: Alanine Aminotransferase 70 U/L (12-78); Albumin/Globulin Ratio 1.2 (1.1-1.8); Alkaline Phosphatase 72 U/L (38-126); Anion Gap 12.7 mEq/L (5-15); Aspartate Amino Transferase 46 U/L (17-59); Bilirubin,Total 0.8 mg/dl (0.2-1.3); Blood Urea Nitrogen 25 mg/dl (9-20); Calcium 9.2 mg/dl (8.4-10.2); Carbon Dioxide 27 mmol/L (22.0-30.0); Chloride 102 mmol/L (98-107); Creatinine Clearance Estimated 97 mL/min (50-200); Estimated Glomerular Filt Rate 86 ml/min (>60); GFR (African American) 105 ML/MIN (>60); Globulin 3.3 g/dL (1.3-3.2); Glucose 127 mg/dl (74-100); Lactic Acid 1.1 mmol/L (0.7-2.1); Lipase 341 U/L (23-300); Potassium 3.7 mmoL/L (3.5-5.1); Sodium 138 mmol/L (136-145); Total Protein,Serum 7.3 g/dl (6.3-8.2)
[2024-06-28 16:30] VITALS: BP 113/74; PULSE 71; RESP 18; O2SAT 95
[2024-06-28 17:00] VITALS: BP 126/71; PULSE 71; RESP 20; O2SAT 96
--- NOTE | 2024-06-28 17:11 | PC.NURSE ---
PT TO CT
[2024-06-28] MEDS: IOPAMIDOL-370 (76%);100ML BOTTLE 75 ML IV (17:15)
[2024-06-28] MEDS: SODIUM CHLORIDE 0.9% 10ML SYR (RAD ONLY) 10 ML IV (17:15)
[2024-06-28 18:41] VITALS: BP 128/79; PULSE 60; RESP 20; TEMP 36.9; O2SAT 98
== END 2024-06-28 18:42 | disposition home or self-care (01) ==
PROVIDERS: Emergency Provider Student in an Organized Health Care Education/Training Program; PCP Family Medicine
DX: T81.30XA Disruption of wound, unspecified, initial encounter (principal); G89.18 Other acute postprocedural pain; R11.2 Nausea with vomiting, unspecified; R63.4 Abnormal weight loss; Z90.49 Acquired absence of other specified parts of digestive tract
CPT/HCPCS: 74177; 80053; 83605; 83690; 85025; 96361; 96374; 96375; 96376; 99284; J0131; J2405; J7120; Q9967

== ENCOUNTER 2024-06-29 14:13 | Inpatient (IN) | payer MEDICAID, SELFPAY ==
[2024-06-29 14:15] VITALS: BP 145/71; PULSE 69; RESP 16; TEMP 36.6; O2SAT 93; BMI 26.5
--- NOTE | 2024-06-29 14:33 | P.CONS_ITS ---
History of Present Illness *History of present illness: Patient presented to the office for routine follow-up after he had undergone emergent laparotomy for complete bowel obstruction with peritonitis on 06/17/2024. He was found to have complete bowel obstruction of the distal jejunum with incredibly dense, extensive, matted conglomeration of adhesions. He underwent extensive lysis of adhesions and small bowel resection. He was discharged on 06/24/2024 after tolerating diet. Patient had presented back to the emergency department on 06/27/24 With a superficial skin dehiscence of the upper aspect of his incision. He was seen in his primary care provider's office on 06/28/2024 Stating that he had been unable to eat or drink anything without postprandial vomiting. He is also having symptoms of diarrhea. Due to the fact that he was unable to hold anything down he presented to the emergency department in the evening of 06/28/2024. At that time he was able to be managed as an outpatient with recommendations for planned follow-up as scheduled in the office today. He presents stating that he is unable to tolerate any p.o. intake with some foul-smelling vomiting. He has also had some liquid stools. CT scan in the emergency department on 06/28/2024 revealed interval small bowel resection with fluid distention of proximal small bowel loops to the anastomosis which was felt to be possibly ileus but recurrent obstruction could not be completely excluded. . [facility] Disclaimer: The information contained in this section may have been updated after the patient was seen, as this information can be updated by other users. Medical History Bowel obstruction History of heart attack Heart attack Depression Erosive osteoarthritis of multiple sites Surgical History S/P exploratory laparotomy Hx of appendectomy Family History Other Diabetes Social History (Updated 06/29/24 @ 14:21 by Aruna Oliver RN) Smoking Status: Former smoker alcohol intake: current alcohol intake frequency: holidays/special occasions only substance use type: denies use current occupational status: employed Travel in the last 8 weeks: None household members: none housing: apartment Meds Home Medications and Allergies Home Medications ?Medication ?Instructions ?Recorded ?Confirmed ?Type atorvastatin 40 mg tablet 40 mg PO HS #90 tabs 01/07/24 06/29/24 Rx bupropion HCl 150 mg tablet,12 hr 150 mg PO BID #180 ea 01/07/24 06/29/24 Rx sustained-release (Wellbutrin SR) clopidogrel 75 mg tablet 75 mg PO DAILY #90 tabs 01/07/24 06/29/24 Rx sildenafil 100 mg tablet (Viagra) 100 mg PO DAILY PRN sexual 01/07/24 06/29/24 Rx activity #10 tabs fluoxetine 20 mg capsule 20 mg PO DAILY 06/17/24 06/29/24 History acetaminophen 325 mg tablet 650 mg (2 x 325 mg) PO Q6HP PRN 06/24/24 06/29/24 Rx Fever Or Mild Pain (1-3) #0 tabs oxycodone-acetaminophen 5 mg-325 1 tab PO Q6H PRN pain #45 tabs 06/25/24 06/29/24 Rx mg tablet (Percocet) ondansetron 4 mg disintegrating 4 mg PO Q6H PRN nausea and 06/28/24 06/29/24 Rx tablet vomiting 5 days #20 tabs promethazine 25 mg tablet 25 mg PO Q6HP PRN nausea and 06/29/24 06/29/24 History vomiting New Prescriptions to Start Prescriptions: Allergies Allergy/AdvReac Type Severity Reaction Status Date / Time No Known Allergies Allergy Verified 06/29/24 13:37 Exam (Inpt) Comment:: Patient mild to moderately acutely ill-appearing. Head: Present normocephalic GI: Present soft Comments:: For the most part the midline laparotomy incision is well-healed. There is superficial skin dehiscence in the upper aspect with some draining serous fluid. I did probe this vigorously and opened minimal pocket in the subcutaneous tissue. Underlying fascia appears to be intact. Packed with dry gauze. . Assessment and Plan *Assessment and plan (1) SBO (small bowel obstruction): Status: Acute Category: Medical Code(s): K56.609 - Unspecified intestinal obstruction, unspecified as to partial versus complete obstruction Plan Patient likely has significant ongoing postoperative ileus or partial obstruction. Given his inability tolerate oral intake with unintentional weight loss I feel that inpatient admission would be warranted. Arrangements have been made for this. Plan for initial attempt of treatment as conservative management of bowel obstruction with nasogastric decompression bowel rest and IV fluids. Plan to check stool panel for possible enteritis given his diarrhea although this may be merely breakthrough diarrhea from partial obstruction.
--- NOTE | 2024-06-29 14:39 | HMH.PHAINT1 ---
Pharmacy Intervention Comments: MEDICATION RECONCILIATION COMPLETED ON PATIENT USING EXTERNAL FILL HISTORY FROM PHARMACY AND DISCHARGE SUMMARY FROM PREVIOUS ADMISSION. -KEYLA CARROLL, ALICIAD
[2024-06-29 16:00] VITALS: BP 126/64; PULSE 68; RESP 16; TEMP 36.6; O2SAT 96
[2024-06-29 16:10] LABS: Basophils % 0.3 % (0.1-2.0); Eosinophils # 0.1 K/mm3 (0.0-0.4); Eosinophils % 0.7 % (0.1-12.0); Hematocrit 43.3 % (42.0-52.0); Hemoglobin 14.6 g/dL (14.1-18.0); Lymphocytes # 1.4 K/mm3 (0.7-4.5); Lymphocytes % 14.8 % (10-50); Mean Corpuscular HGB Conc 33.7 g/dL (31.8-35.4); Mean Corpuscular Hemoglobin 31.4 pg (27.0-31.2); Mean Corpuscular Volume 93.1 fl (80-94); Mean Platelet Volume 8.5 fl (7.4-10.4); Monocytes # 0.4 K/mm3 (0.1-1.0); Monocytes % 3.8 % (1.7-9.3); Neutrophils # 7.7 K/mm3 (1.8-7.8); Neutrophils % 80.4 % (37.0-80.0); Platelet Count 408 K/mm3 (142-424); Red Blood Count 4.65 M/mm3 (4.60-6.20); Red Cell Distribution Width 13.6 % (11.5-17.5); White Blood Count 9.5 K/mm3 (4.8-10.8)
[2024-06-29] MEDS: LACTATED RINGERS 1000ML 1,000 ML 125 ML IV (16:13)
[2024-06-29] MEDS: ONDANSETRON 4MG/2ML VIAL 4 MG IV (16:13)
[2024-06-29] MEDS: MORPHINE 4MG/ML SYRINGE 4 MG IV ×2 (16:13→20:25)
[2024-06-29 16:24] LABS: Albumin Level 4.1 g/dl (3.5-5.0); Chloride 104 mmol/L (98-107); Potassium 4.3 mmoL/L (3.5-5.1); Sodium 138 mmol/L (136-145)
[2024-06-29 16:26] LABS: Alanine Aminotransferase 71 U/L (12-78); Blood Urea Nitrogen 24 mg/dl (9-20); Creatinine Clearance Estimated 96 mL/min (50-200); Estimated Glomerular Filt Rate 86 ml/min (>60); GFR (African American) 105 ML/MIN (>60)
[2024-06-29 16:27] LABS: Albumin/Globulin Ratio 1.4 (1.1-1.8); Alkaline Phosphatase 78 U/L (38-126); Anion Gap 13.3 mEq/L (5-15); Aspartate Amino Transferase 44 U/L (17-59); Bilirubin,Total 0.9 mg/dl (0.2-1.3); Calcium 8.8 mg/dl (8.4-10.2); Carbon Dioxide 25 mmol/L (22.0-30.0); Globulin 2.9 g/dL (1.3-3.2); Glucose 112 mg/dl (74-100); Lipase 312 U/L (23-300); Magnesium 2.2 mg/dl (1.6-2.3)
--- NOTE | 2024-06-29 17:01 | EXP.HP ---
History of Present Illness *Admission Date: 06/29/24 *Reason for visit:: Nausea and vomiting *History of present illness: Mr. Up is a 58-year-old gentleman who presented to the ER and found to have complete bowel obstruction with peritonitis in 06/17/2024. Underwent emergent laparotomy with obstruction of distal jejunum, lysis of adhesions and bowel resection. Was discharged on 06/24 after being able to tolerate advancement of diet and having bowel movements. Presented to the ER over the weekend and then again to surgery clinic for follow-up today with recurrent nausea and vomiting. On the fourth found to have some superficial dehiscence of the upper aspect of his incision with serous drainage. Wound was evaluated today in surgery clinic and packed, concern for seroma, low concern for infection. Continuing to have bilious emesis however and diarrhea daily. Due to the fact that he is unable to keep anything down, continuing to have GI symptoms, medicine was consulted for admission and further management. CT scan obtained on 06/28 in the ER that revealed distended loops of bowel with air-fluid levels. Concern for ileus. On arrival to the floor, patient denies any chest pain or shortness of breath. Reports bilious emesis. States he has been having loose stools multiple times a day. States has not been able to keep anything down for the past 2 to 3 days. Denies any blood in his vomit or stool. at bedside. Reports mild pain with incision. No fever or chills. [facility] Disclaimer: The information contained in this section may have been updated after the patient was seen, as this information can be updated by other users. Medical History (Updated 06/29/24 @ 17:54 by Rashaad Choi MD) Bowel obstruction History of heart attack Heart attack Depression Erosive osteoarthritis of multiple sites Surgical History S/P exploratory laparotomy Hx of appendectomy Family History Other Diabetes Social History (Updated 06/29/24 @ 14:21 by Aruna Oliver RN) Smoking Status: Former smoker alcohol intake: current alcohol intake frequency: holidays/special occasions only substance use type: denies use current occupational status: employed Travel in the last 8 weeks: None household members: none housing: apartment Review of Systems Review of Systems Review of systems (narrative): 14 point review of systems performed, pertinent positives and negatives as per HPI Meds Home Medications and Allergies Home Medications ?Medication ?Instructions ?Recorded ?Confirmed ?Type atorvastatin 40 mg tablet 40 mg PO HS #90 tabs 01/07/24 06/29/24 Rx bupropion HCl 150 mg tablet,12 hr 150 mg PO BID #180 ea 01/07/24 06/29/24 Rx sustained-release (Wellbutrin SR) clopidogrel 75 mg tablet 75 mg PO DAILY #90 tabs 01/07/24 06/29/24 Rx fluoxetine 20 mg capsule 20 mg PO DAILY 06/17/24 06/29/24 History acetaminophen 325 mg tablet 650 mg (2 x 325 mg) PO Q6HP PRN 06/24/24 06/29/24 Rx Fever Or Mild Pain (1-3) #0 tabs ondansetron 4 mg disintegrating 4 mg PO Q6HP PRN nausea and 06/29/24 06/29/24 History tablet vomiting oxycodone-acetaminophen 5 mg-325 1 tab PO Q6HP PRN Moderate Pain 06/29/24 06/29/24 History mg tablet (Percocet) (Scale Score 5-6) promethazine 25 mg tablet 25 mg PO Q6HP PRN nausea and 06/29/24 06/29/24 History vomiting sildenafil 100 mg tablet (Viagra) 100 mg PO NEEDED PRN sexual 06/29/24 06/29/24 History activity New Prescriptions to Start Prescriptions: Allergies Allergy/AdvReac Type Severity Reaction Status Date / Time No Known Allergies Allergy Verified 06/29/24 13:37 Exam Data for Last 24 hours Vital signs and Labs for Last 24 Hours: Temp Pulse Resp BP Pulse Ox O2 Del Method 98 F 68 16 126/64 96 Room Air 06/29/24 16:00 06/29/24 16:00 06/29/24 16:00 06/29/24 16:00 06/29/24 16:00 06/29/24 16:00 Laboratory Results - last 24 hr 06/29/24 15:50: WBC 9.5, RBC 4.65, Hgb 14.6, Hct 43.3, MCV 93.1, MCH 31.4 H, MCHC 33.7, RDW 13.6, Plt Count 408, MPV 8.5, Neut % (Auto) 80.4 H, Lymph % (Auto) 14.8, [place] % (Auto) 3.8, Eos % (Auto) 0.7, Baso % (Auto) 0.3, Neut # (Auto) 7.7, Lymph # (Auto) 1.4, [place] # (Auto) 0.4, Eos # (Auto) 0.1, Baso # (Auto) 0.0, Sodium 138, Potassium 4.3, Chloride 104, Carbon Dioxide 25, Anion Gap 13.3, BUN 24 H, Creatinine 0.90, Estimated Creat Clear 96, Estimated GFR 86, Est GFR ( Amer) 105, Glucose 112 H, Calcium 8.8, Magnesium 2.2, Total Bilirubin 0.9, AST 44, ALT 71, Alkaline Phosphatase 78, Total Protein 7.0, Albumin 4.1, Globulin 2.9, Albumin/Globulin Ratio 1.4, Lipase 312 H I & O for Last 24 hours: Intake & Output 06/26/24 06/27/24 06/28/24 06/29/24 23:59 23:59 23:59 23:59 Weight 76.884 kg Constitutional Constitutional: no acute distress and cooperative *Routine HEENT Exam Head: Present normocephalic Eye: Present EOMI and PERRL ENT: Present mucous membranes moist *Routine Neck Exam Neck: Present supple; Absent lymphadenopathy *Routine Respiratory Exam Respiratory: Present CTA bilaterally; Absent rhonchi, stridor, wheezes or crackles *Routine Cardiovascular Exam Cardiovascular: Present RRR *Routine Abdominal Exam Abdominal: Present soft and tenderness; Absent normoactive bowel sounds Comments: Hypoactive bowel sounds. Tender along incision. Minimal erythema along incision. Packing in place and proximal aspect of incision. No rebound or guarding. *Routine Rectal Exam Rectal:: deferred *Routine Genitalia Exam Genitalia:: deferred *Routine Extremities Exam Extremities: Absent cyanosis, clubbing or edema *Routine Skin Exam Skin: Present warm; Absent rash *Routine Neurological Exam Neurological: Present alert, oriented X3 and moving all extremities; Absent altered mental status Assessment and Plan *Assessment and plan (1) Ileus, postoperative: Status: Acute Category: Medical Code(s): K91.89 - Other postprocedural complications and disorders of digestive system; K56.7 - Ileus, unspecified (2) Diarrhea: Status: Acute Category: Medical Code(s): R19.7 - Diarrhea, unspecified (3) S/P exploratory laparotomy: Status: Inactive Category: Surgical Code(s): Z98.890 - Other specified postprocedural states (4) CAD (coronary artery disease), [place] coronary artery: Status: Acute Qualifiers: Associated angina: unspecified whether angina present [place] vs. transplanted heart: [place] heart Qualified Code(s): I25.10 - Atherosclerotic heart disease of [place] coronary artery without angina pectoris Category: Medical Code(s): I25.10 - Atherosclerotic heart disease of [place] coronary artery without angina pectoris (5) History of heart attack: Status: Inactive Category: Medical Code(s): I25.2 - Old myocardial infarction (6) Depression: Status: Acute Qualifiers: Depression Type: unspecified Qualified Code(s): F32.9 - Major depressive disorder, single episode, unspecified Category: Medical Code(s): F32.9 - Major depressive disorder, single episode, unspecified Plan 58-year-old male with PMHx of CAD s/p stent, open appendectomy, and recent bowel resection due to small bowel obstruction. Presented to surgery clinic with persistent nausea and vomiting, dehiscence of proximal portion of the surgical wound, and diarrhea. Discussed case with surgery, request admission for management of suspected ileus and monitoring of surgical abdominal incision. I agreed to admit for further management. Patient afebrile and hemodynamically stable upon arriving to the floor. Labs reviewed, white cell count normal. Lipase mildly elevated. No elevation in liver enzymes or kidney function. Initiated on IV fluids. NG placed. Necessitating inpatient admission. Problems addressed as follows: Postop ileus Recent exploratory laparotomy with resection and end-to-end anastomosis -Patient is 12 days postop. Having bilious emesis and loose stools. NG placed, KUB obtained showing distended loops of bowel with fluid. NG in place. -N.p.o. at this time. Surgery consulted, case discussed. Recommend NG, n.p.o., bowel rest. - will obtain diarrhea panel -Morphine 4 mg IV as needed every 4 hours for severe pain. -1 L LR -Received antibiotics during previous admission, at risk for antibiotic induced diarrheal infections. - Zofran 4 mg as needed every 8 hours for nausea, phenol throat spray for irritation from NG tube -White count normal at 9.5, hemoglobin stable at 14.6. Kidney function electrolytes normal with BUN 24, creatinine 0.9. No electrolyte disturbances with potassium 4.3. Liver function normal bilirubin 0.9, AST 44, ALT 71. Lipase mildly elevated at 312. Low concern for acute pancreatitis however, likely reactive to nausea and vomiting -Repeat CBC, CMP, magnesium ordered for the morning. Chronic conditions CAD s/p stent, Hx of heart attack depression Holding medications while NPO. Will resume when appropriate Holding Plavix SCD for DVT ppx Full code
--- NOTE | 2024-06-29 17:36 | XR_ITS ---
PROCEDURE INFORMATION: Exam: XR Abdomen Exam date and time: 06/29/2024 5:41 PM Age: 58 years old Clinical indication: Device placement; Gi device; Nasogastric tube; Additional info: Ng placement TECHNIQUE: Imaging protocol: Radiologic exam of the abdomen. Views: Frontal supine view of the abdomen. 1 View. COMPARISON: CT ABDOMEN PELVIS W CON 06/28/2024 5:15 PM FINDINGS: Tubes, catheters and devices: Subdiaphragmatic course of enteric tube with tip and side port projecting over the stomach. Gastrointestinal tract: Several mildly prominent air-filled loops of small bowel within the left hemiabdomen. Bones/joints: Unremarkable. IMPRESSION: 1. Appropriately positioned enteric tube. 2. Several mildly prominent air-filled loops of small bowel within the left hemiabdomen.
[2024-06-29] MEDS: PHENOL THROAT SPRAY 177 ML BOTTLE MM (18:13)
[2024-06-29 19:51] VITALS: BP 147/79; PULSE 70; RESP 20; TEMP 36.4; O2SAT 91
[2024-06-30] MEDS: ONDANSETRON 4MG/2ML VIAL 4 MG IV ×2 (00:20→15:06)
[2024-06-30] MEDS: LACTATED RINGERS 1000ML 1,000 ML 125 ML IV ×3 (00:20→18:52)
[2024-06-30] MEDS: MORPHINE 4MG/ML SYRINGE 4 MG IV ×2 (00:20→15:08)
[2024-06-30 04:00] VITALS: BMI 26.7
[2024-06-30 04:03] VITALS: BP 123/73; PULSE 82; RESP 17; TEMP 37.1; O2SAT 93
--- NOTE | 2024-06-30 05:30 | PC.NURSE ---
Patient is alert and oriented x4 and has tolerated room air. Lung sounds clear throughout and bowel sounds active in all quadrants. Pt has had NG to low wall suction with 450 ml output so far this shift. He has complained of abdominal pain and nausea and was treated per Mar. has remained at bedside the majority of the shift. Pt has no complaints at this time, call light within reach.
[2024-06-30 06:27] LABS: Albumin Level 3.7 g/dl (3.5-5.0); Chloride 102 mmol/L (98-107)
[2024-06-30 06:28] LABS: Potassium 4.2 mmoL/L (3.5-5.1); Sodium 136 mmol/L (136-145)
[2024-06-30 06:30] LABS: Alanine Aminotransferase 66 U/L (12-78); Albumin/Globulin Ratio 1.4 (1.1-1.8); Alkaline Phosphatase 70 U/L (38-126); Anion Gap 10.2 mEq/L (5-15); Aspartate Amino Transferase 39 U/L (17-59); Blood Urea Nitrogen 24 mg/dl (9-20); Carbon Dioxide 28 mmol/L (22.0-30.0); Creatinine Clearance Estimated 87 mL/min (50-200); Estimated Glomerular Filt Rate 76 ml/min (>60); GFR (African American) 93 ML/MIN (>60); Globulin 2.7 g/dL (1.3-3.2); Total Protein,Serum 6.4 g/dl (6.3-8.2)
[2024-06-30 06:31] LABS: Calcium 8.5 mg/dl (8.4-10.2); Glucose 116 mg/dl (74-100); Phosphorous 4.3 mg/dl (2.5-4.5)
[2024-06-30 06:55] LABS: Basophils # 0.1 K/mm3 (0-0.2); Basophils % 0.3 % (0.1-2.0); Eosinophils # 0.1 K/mm3 (0.0-0.4); Eosinophils % 0.3 % (0.1-12.0); Hematocrit 41.9 % (42.0-52.0); Hemoglobin 13.7 g/dL (14.1-18.0); Lymphocytes # 1.8 K/mm3 (0.7-4.5); Lymphocytes % 11.6 % (10-50); Mean Corpuscular HGB Conc 32.6 g/dL (31.8-35.4); Mean Corpuscular Hemoglobin 30.7 pg (27.0-31.2); Mean Corpuscular Volume 94.3 fl (80-94); Mean Platelet Volume 8.7 fl (7.4-10.4); Monocytes # 0.7 K/mm3 (0.1-1.0); Monocytes % 4.2 % (1.7-9.3); Neutrophils % 83.6 % (37.0-80.0); Platelet Count 396 K/mm3 (142-424); Red Blood Count 4.45 M/mm3 (4.60-6.20); Red Cell Distribution Width 13.6 % (11.5-17.5); White Blood Count 15.5 K/mm3 (4.8-10.8)
[2024-06-30 06:57] LABS: MANUAL DIFFERENTIAL MANUAL DIFFERENTIAL (MANUAL DIFF)
--- NOTE | 2024-06-30 07:29 | EXP.SURG.PN ---
Subjective Patient reports: flatus Narrative: Feels a little better after placement of nasogastric tube. Exam Data for Last 24 hours Vital signs and Labs for Last 24 Hours: Temp Pulse Resp BP Pulse Ox O2 Del Method 98.8 F 82 17 123/73 93 L Room Air 06/30/24 04:03 06/30/24 04:03 06/30/24 04:03 06/30/24 04:03 06/30/24 04:03 06/30/24 06:00 Laboratory Results - last 24 hr 06/29/24 15:50: WBC 9.5, RBC 4.65, Hgb 14.6, Hct 43.3, MCV 93.1, MCH 31.4 H, MCHC 33.7, RDW 13.6, Plt Count 408, MPV 8.5, Neut % (Auto) 80.4 H, Lymph % (Auto) 14.8, [place] % (Auto) 3.8, Eos % (Auto) 0.7, Baso % (Auto) 0.3, Neut # (Auto) 7.7, Lymph # (Auto) 1.4, [place] # (Auto) 0.4, Eos # (Auto) 0.1, Baso # (Auto) 0.0, Sodium 138, Potassium 4.3, Chloride 104, Carbon Dioxide 25, Anion Gap 13.3, BUN 24 H, Creatinine 0.90, Estimated Creat Clear 96, Estimated GFR 86, Est GFR ( Amer) 105, Glucose 112 H, Calcium 8.8, Magnesium 2.2, Total Bilirubin 0.9, AST 44, ALT 71, Alkaline Phosphatase 78, Total Protein 7.0, Albumin 4.1, Globulin 2.9, Albumin/Globulin Ratio 1.4, Lipase 312 H 06/30/24 05:54: WBC 15.5 H D, RBC 4.45 L, Hgb 13.7 L, Hct 41.9 L, MCV 94.3 H, MCH 30.7, MCHC 32.6, RDW 13.6, Plt Count 396, MPV 8.7, Neut % (Auto) 83.6 H, Lymph % (Auto) 11.6, [place] % (Auto) 4.2, Eos % (Auto) 0.3, Baso % (Auto) 0.3, Neut # (Auto) 13.0 H, Lymph # (Auto) 1.8, [place] # (Auto) 0.7, Eos # (Auto) 0.1, Baso # (Auto) 0.1, Sodium 136, Potassium 4.2, Chloride 102, Carbon Dioxide 28, Anion Gap 10.2, BUN 24 H, Creatinine 1.00, Estimated Creat Clear 87, Estimated GFR 76, Est GFR ( Amer) 93, Glucose 116 H, Calcium 8.5, Phosphorus 4.3, Magnesium 2.0, Total Bilirubin 1.0, AST 39, ALT 66, Alkaline Phosphatase 70, Total Protein 6.4, Albumin 3.7, Globulin 2.7, Albumin/Globulin Ratio 1.4 I & O for Last 24 hours: Intake & Output 06/27/24 06/28/24 06/29/24 06/30/24 11:59 11:59 11:59 11:59 Intake Total 1600 / 1600 Output Total 650 / 650 Balance 950 / 950 Weight 171 lb Constitutional Constitutional: no acute distress *Routine Respiratory Exam Respiratory: Absent respiratory distress *Routine Cardiovascular Exam Cardiovascular: Absent tachycardia *Routine Abdominal Exam Abdominal: Present soft Progress Note: A&P Assessment and plan (1) Ileus, postoperative: Status: Acute Assessment and plan: Improved symptomatology with nasogastric decompression. Continue NG tube to continuous low wall suction for now Continue serial abdominal exams (2) Diarrhea: Status: Acute (3) S/P exploratory laparotomy: Status: Inactive
[2024-06-30 08:00] VITALS: BP 124/66; PULSE 64; RESP 20; TEMP 37.1; O2SAT 93
[2024-06-30 08:41] LABS: Lymphocytes % 14 % (10-50); Monocytes % 4 % (2-9); Neutrophils % 82 % (42-76); Platelet Estimate Normal; RBC Morphology Normal; Total Cells Counted 100
[2024-06-30 11:58] VITALS: BP 119/62; PULSE 61; RESP 18; TEMP 37.1; O2SAT 93
--- NOTE | 2024-06-30 12:19 | P.PN_ITS ---
Subjective *Date: 06/30/24 *Time: 22:35 Interval history: Patient did well overnight. No abdominal pain or nausea or vomiting this morning. Stable on room air. NG in place with bilious drainage. Passing gas, no bowel movement since admission Medical Exam Vital signs and Labs for Last 24 Hours: Vital Signs Temp Pulse Resp BP Pulse Ox O2 Del Method 06/30/24 11:58 98.8 F 61 18 119/62 93 L Room Air 06/30/24 11:00 Room Air 06/30/24 09:00 Room Air 06/30/24 08:00 Room Air 06/30/24 08:00 98.7 F 64 20 124/66 93 L Room Air 06/30/24 06:00 Room Air 06/30/24 04:03 98.8 F 82 17 123/73 93 L Room Air 06/30/24 04:00 Room Air 06/30/24 02:00 Room Air 06/30/24 00:00 Room Air 06/29/24 22:00 Room Air 06/29/24 20:00 Room Air 06/29/24 20:00 Room Air 06/29/24 19:51 97.6 F 70 20 147/79 H 91 L Room Air 06/29/24 18:00 Room Air 06/29/24 17:48 Room Air 06/29/24 16:00 Room Air 06/29/24 16:00 98 F 68 16 126/64 96 06/29/24 14:15 98 F 69 16 145/71 H 93 L Room Air Intake and Output 06/29/24 06/30/24 06/30/24 23:59 07:59 15:59 Output Total 350 / 650 150 / 150 Balance -350 / 950 -150 / -150 Output: Output, Urine Amount 150 / 150 Output, Gastric Drainage Amount 350 / 350 Right Nare 350 / 350 Other: Weight 77.564 kg Patient Weight 06/30/24 23:59 Weight 77.564 kg Laboratory Results - last 24 hr 06/29/24 15:50: WBC 9.5, RBC 4.65, Hgb 14.6, Hct 43.3, MCV 93.1, MCH 31.4 H, MCHC 33.7, RDW 13.6, Plt Count 408, MPV 8.5, Neut % (Auto) 80.4 H, Lymph % (Auto) 14.8, [place] % (Auto) 3.8, Eos % (Auto) 0.7, Baso % (Auto) 0.3, Neut # (Auto) 7.7, Lymph # (Auto) 1.4, [place] # (Auto) 0.4, Eos # (Auto) 0.1, Baso # (Auto) 0.0, Sodium 138, Potassium 4.3, Chloride 104, Carbon Dioxide 25, Anion Gap 13.3, BUN 24 H, Creatinine 0.90, Estimated Creat Clear 96, Estimated GFR 86, Est GFR ( Amer) 105, Glucose 112 H, Calcium 8.8, Magnesium 2.2, Total Bilirubin 0.9, AST 44, ALT 71, Alkaline Phosphatase 78, Total Protein 7.0, Albumin 4.1, Globulin 2.9, Albumin/Globulin Ratio 1.4, Lipase 312 H 06/30/24 05:54: WBC 15.5 H D, RBC 4.45 L, Hgb 13.7 L, Hct 41.9 L, MCV 94.3 H, MCH 30.7, MCHC 32.6, RDW 13.6, Plt Count 396, MPV 8.7, Neut % (Auto) 83.6 H, Lymph % (Auto) 11.6, [place] % (Auto) 4.2, Eos % (Auto) 0.3, Baso % (Auto) 0.3, Neut # (Auto) 13.0 H, Lymph # (Auto) 1.8, [place] # (Auto) 0.7, Eos # (Auto) 0.1, Baso # (Auto) 0.1, Total Counted 100, Neutrophils % (Manual) 82 H, Lymphocytes % (Manual) 14, Monocytes % (Manual) 4, Platelet Estimate Normal, RBC Morphology Normal, Sodium 136, Potassium 4.2, Chloride 102, Carbon Dioxide 28, Anion Gap 10.2, BUN 24 H, Creatinine 1.00, Estimated Creat Clear 87, Estimated GFR 76, Est GFR ( Amer) 93, Glucose 116 H, Calcium 8.5, Phosphorus 4.3, Magnesium 2.0, Total Bilirubin 1.0, AST 39, ALT 66, Alkaline Phosphatase 70, Total Protein 6.4, Albumin 3.7, Globulin 2.7, Albumin/Globulin Ratio 1.4 I & O for Labs for Last 24 Hours: Intake & Output 06/27/24 06/28/24 06/29/24 06/30/24 23:59 23:59 23:59 23:59 Intake Total 1600 / 1600 Output Total 500 / 650 150 / 150 Balance 1100 / 950 -150 / -150 Weight 76.884 kg 77.564 kg Constitutional: Present no acute distress, average body habitus and cooperative Head: Present atraumatic and normocephalic ENT: Present normal exam Comment:: NG in place Respiratory: Present CTA bilaterally; Absent rhonchi, wheezes or crackles Cardiac: Present Reg Rate and Rhythm GI: Present soft, tenderness and normal bowel sounds; Absent distention Comments:: Midline incision packed, minimal erythema, no foul drainage. Skin: Present intact; Absent cyanosis Neuro: Present alert, awake, oriented x 3 and moves all extremities Assessment and Plan *Assessment and plan (1) Ileus, postoperative: Status: Acute Category: Medical Code(s): K91.89 - Other postprocedural complications and disorders of digestive system; K56.7 - Ileus, unspecified (2) Diarrhea: Status: Acute Category: Medical Code(s): R19.7 - Diarrhea, unspecified (3) S/P exploratory laparotomy: Status: Inactive Category: Surgical Code(s): Z98.890 - Other specified postprocedural states (4) CAD (coronary artery disease), [place] coronary artery: Status: Acute Qualifiers: Associated angina: unspecified whether angina present [place] vs. transplanted heart: [place] heart Qualified Code(s): I25.10 - Atherosclerotic heart disease of [place] coronary artery without angina pectoris Category: Medical Code(s): I25.10 - Atherosclerotic heart disease of [place] coronary artery without angina pectoris (5) History of heart attack: Status: Inactive Category: Medical Code(s): I25.2 - Old myocardial infarction (6) Depression: Status: Acute Qualifiers: Depression Type: unspecified Qualified Code(s): F32.9 - Major depressive disorder, single episode, unspecified Category: Medical Code(s): F32.9 - Major depressive disorder, single episode, unspecified Plan 58-year-old male with PMHx of CAD s/p stent, open appendectomy, and recent bowel resection due to small bowel obstruction. Presented to surgery clinic with persistent nausea and vomiting, dehiscence of proximal portion of the surgical wound, and diarrhea. Discussed case with surgery, request admission for management of suspected ileus and monitoring of surgical abdominal incision. I agreed to admit for further management. Remained afebrile night. Feeling somewhat better this morning after decompression of the abdomen. Passing lots of gas. No bowel movement. Continues to require inpatient admission. Problems addressed as follows: Postop ileus Recent exploratory laparotomy with resection and end-to-end anastomosis -Patient is 13 days postop. No emesis overnight. NG in place. Having some symptomatic relief. Continue NPO. -Discussed case with surgery, recommend continuing NG and n.p.o. Monitor for bowel movements and improvement in abdominal exam. Hold on antibiotics for incision. - will obtain diarrhea panel - Morphine 4 mg IV as needed every 4 hours for severe pain. - LR at 125 an hour -Received antibiotics during previous admission, at risk for antibiotic induced diarrheal infections. - Zofran 4 mg as needed every 8 hours for nausea, phenol throat spray for irritation from NG tube -White count elevated today at 15.5, suspect reactive. Will continue to monitor closely. No fevers. Kidney function normal with BUN 24, creatinine 1.0. - Repeat CBC, CMP, magnesium ordered for the morning. Chronic conditions CAD s/p stent, Hx of heart attack depression Holding medications while NPO. Will resume when appropriate Holding Plavix SCD for DVT ppx Full code
--- NOTE | 2024-06-30 14:19 | DIET.NUTRFU ---
Patient is at increased nutritional risk, he was just here from 06/17-06/25 for GI sx. He was NPO x4 days post sx that admit. He is now NPO again this again with NG at suction. Depending when oral diet starts he will need repletion benefiting from oral supplement when appropriate. Will continue to follow
[2024-06-30 16:00] VITALS: BP 122/63; PULSE 68; RESP 19; TEMP 36.6; O2SAT 93
[2024-06-30] MEDS: KETOROLAC 30MG/ML VIAL 15 MG IV (16:39)
--- NOTE | 2024-06-30 16:58 | PC.NURSE ---
Pt has done well today medicated per MAR for pain. When administering morphine pt gets nauseous almost instantly after giving morphine. He stated he did not want the morphine anymore. Toradol ordered per MD for pain. No other complaints offered by Pt. NG tube is at 62 at the nare.
[2024-06-30 19:50] VITALS: BP 137/71; PULSE 64; RESP 16; TEMP 36.6; O2SAT 92
[2024-06-30] MEDS: MELATONIN 5MG TABLET 10 MG PO (20:19)
[2024-07-01] MEDS: LACTATED RINGERS 1000ML 1,000 ML 125 ML IV ×2 (03:58→17:47)
[2024-07-01 04:00] VITALS: BP 120/61; PULSE 65; RESP 16; TEMP 36.8; O2SAT 95; BMI 26.8
--- NOTE | 2024-07-01 04:05 | PC.NURSE ---
Pt is alert and oriented x4 and currently tolerating RA well. Pt NG remains in R nare and is on low wall suction with an output of 700 ml thus far this shift. Pt did request assistance for falling asleep (orders obtained for melatonin 10mg). Pt tolerated medication administration well. Pt did admit to feeling slightly bloated from administration but admitted to feeling relief shortly after low wall suction was reapplied. Pt has sleep well at times throughout shift and denies pain at this time. No acute changes to note at this time.
--- NOTE | 2024-07-01 05:51 | PC.NURSE ---
Pt NG has became occluded twice this shift requiring nurse to gently flush NG to clear. Pt has had 100 ml drainage out of the airvent pigtail this shift.
[2024-07-01 06:14] LABS: Basophils % 0.4 % (0.1-2.0); Eosinophils # 0.1 K/mm3 (0.0-0.4); Eosinophils % 0.5 % (0.1-12.0); Hematocrit 38.4 % (42.0-52.0); Lymphocytes # 1.4 K/mm3 (0.7-4.5); Lymphocytes % 13.5 % (10-50); Mean Corpuscular HGB Conc 33.9 g/dL (31.8-35.4); Mean Corpuscular Hemoglobin 31.3 pg (27.0-31.2); Mean Corpuscular Volume 92.2 fl (80-94); Mean Platelet Volume 8.5 fl (7.4-10.4); Monocytes # 0.5 K/mm3 (0.1-1.0); Monocytes % 4.6 % (1.7-9.3); Neutrophils # 8.6 K/mm3 (1.8-7.8); Platelet Count 343 K/mm3 (142-424); Red Blood Count 4.16 M/mm3 (4.60-6.20); Red Cell Distribution Width 13.6 % (11.5-17.5); White Blood Count 10.6 K/mm3 (4.8-10.8)
[2024-07-01 06:19] LABS: Albumin Level 3.4 g/dl (3.5-5.0); Chloride 103 mmol/L (98-107); Potassium 4.2 mmoL/L (3.5-5.1); Sodium 136 mmol/L (136-145)
[2024-07-01 06:22] LABS: Alanine Aminotransferase 57 U/L (12-78); Albumin/Globulin Ratio 1.2 (1.1-1.8); Alkaline Phosphatase 65 U/L (38-126); Anion Gap 11.2 mEq/L (5-15); Aspartate Amino Transferase 36 U/L (17-59); Bilirubin,Total 1.1 mg/dl (0.2-1.3); Blood Urea Nitrogen 21 mg/dl (9-20); Calcium 8.4 mg/dl (8.4-10.2); Carbon Dioxide 26 mmol/L (22.0-30.0); Creatinine Clearance Estimated 97 mL/min (50-200); Estimated Glomerular Filt Rate 86 ml/min (>60); GFR (African American) 105 ML/MIN (>60); Globulin 2.8 g/dL (1.3-3.2); Glucose 102 mg/dl (74-100); Total Protein,Serum 6.2 g/dl (6.3-8.2)
[2024-07-01 07:25] VITALS: BP 132/67; PULSE 62; RESP 19; TEMP 36.5; O2SAT 92
--- NOTE | 2024-07-01 08:11 | EXP.SURG.PN ---
Subjective Patient reports: flatus Narrative: He reports 1 episode of emesis at the time of nasogastric tube manipulation and states that he also had some narcotics at that time . Exam Data for Last 24 hours Vital signs and Labs for Last 24 Hours: Temp Pulse Resp BP Pulse Ox O2 Del Method 97.7 F 62 19 132/67 92 L Room Air 07/01/24 07:25 07/01/24 07:25 07/01/24 07:25 07/01/24 07:25 07/01/24 07:25 07/01/24 07:25 Laboratory Results - last 24 hr 06/30/24 05:54: Total Counted 100, Neutrophils % (Manual) 82 H, Lymphocytes % (Manual) 14, Monocytes % (Manual) 4, Platelet Estimate Normal, RBC Morphology Normal 07/01/24 05:52: WBC 10.6 D, RBC 4.16 L, Hgb 13.0 L, Hct 38.4 L, MCV 92.2, MCH 31.3 H, MCHC 33.9, RDW 13.6, Plt Count 343, MPV 8.5, Neut % (Auto) 81.0 H, Lymph % (Auto) 13.5, [place] % (Auto) 4.6, Eos % (Auto) 0.5, Baso % (Auto) 0.4, Neut # (Auto) 8.6 H, Lymph # (Auto) 1.4, [place] # (Auto) 0.5, Eos # (Auto) 0.1, Baso # (Auto) 0.0, Sodium 136, Potassium 4.2, Chloride 103, Carbon Dioxide 26, Anion Gap 11.2, BUN 21 H, Creatinine 0.90, Estimated Creat Clear 97, Estimated GFR 86, Est GFR ( Amer) 105, Glucose 102 H, Calcium 8.4, Magnesium 2.0, Total Bilirubin 1.1, AST 36, ALT 57, Alkaline Phosphatase 65, Total Protein 6.2 L, Albumin 3.4 L, Globulin 2.8, Albumin/Globulin Ratio 1.2 I & O for Last 24 hours: Intake & Output 06/28/24 06/29/24 06/30/24 07/01/24 11:59 11:59 11:59 11:59 Intake Total 1600 / 1600 1863 / 1863 Output Total 650 / 650 2350 / 2350 Balance 950 / 950 -487 / -487 Weight 171 lb 170 lb 15.989 oz Constitutional Constitutional: no acute distress *Routine Respiratory Exam Respiratory: Absent respiratory distress *Routine Cardiovascular Exam Cardiovascular: Absent tachycardia *Routine Abdominal Exam Abdominal: Present soft Progress Note: A&P Assessment and plan (1) Ileus, postoperative: Status: Acute Assessment and plan: Overall, improved with nasogastric decompression. Single episode of emesis noted; however, the patient believes it was secondary to narcotic administration. Discontinue all narcotics Continue NG tube (intermittent drain bag trials) Continue serial abdominal exams (2) S/P exploratory laparotomy: Status: Inactive
[2024-07-01 09:27] VITALS: BMI 26.8
--- NOTE | 2024-07-01 09:47 | PC.NURSE ---
abdominal dressing changed, pt tolerated well. NG tube flushed.
--- NOTE | 2024-07-01 09:54 | PC.NURSE ---
pt hooked to drain bag at this time and is ambulating in the hallway.
--- NOTE | 2024-07-01 13:36 | PC.NURSE ---
pt's told this RN that pt stated that his belly felt, full . This RN hooked pt back to continuous low wall suction at this time.
[2024-07-01 16:00] VITALS: BP 116/64; PULSE 59; RESP 14; TEMP 36.9; O2SAT 94
--- NOTE | 2024-07-01 17:22 | PC.NURSE ---
patient has rested for majority of the day. he has not complained of any pain of nausea throughout shift. he has ambulated independently in the hallway with while NG was connected to the drain bag and tolerated well. NG is currently connected to suction and LR is running at 125mls/hr. abdomen is soft, non-tender and bowels are hypoactive. midline incision was changed and packed this am, no redness, with a small amount of serosanguineous drainage noted, no signs of infection. patient has been passing flatus throughout shift. he has tolerated ice chips well and is currently lying in bed. no further requests at this time. call light within reach.
--- NOTE | 2024-07-01 18:07 | EXP.PN ---
Subjective *Date: 07/01/24 *Time: 18:07 Interval history: seen at bedside, no complains of abdominal pain, denied Vomiting, has NG tube Exam Data for Last 24 hours Vital signs and Labs for Last 24 Hours: Temp Pulse Resp BP Pulse Ox O2 Del Method 98.4 F 59 L 14 116/64 94 L Room Air 07/01/24 16:00 07/01/24 16:00 07/01/24 16:00 07/01/24 16:00 07/01/24 16:00 07/01/24 16:00 Laboratory Results - last 24 hr 07/01/24 05:52: WBC 10.6 D, RBC 4.16 L, Hgb 13.0 L, Hct 38.4 L, MCV 92.2, MCH 31.3 H, MCHC 33.9, RDW 13.6, Plt Count 343, MPV 8.5, Neut % (Auto) 81.0 H, Lymph % (Auto) 13.5, [place] % (Auto) 4.6, Eos % (Auto) 0.5, Baso % (Auto) 0.4, Neut # (Auto) 8.6 H, Lymph # (Auto) 1.4, [place] # (Auto) 0.5, Eos # (Auto) 0.1, Baso # (Auto) 0.0, Sodium 136, Potassium 4.2, Chloride 103, Carbon Dioxide 26, Anion Gap 11.2, BUN 21 H, Creatinine 0.90, Estimated Creat Clear 97, Estimated GFR 86, Est GFR ( Amer) 105, Glucose 102 H, Calcium 8.4, Magnesium 2.0, Total Bilirubin 1.1, AST 36, ALT 57, Alkaline Phosphatase 65, Total Protein 6.2 L, Albumin 3.4 L, Globulin 2.8, Albumin/Globulin Ratio 1.2 I & O for Last 24 hours: Intake & Output 06/28/24 06/29/24 06/30/24 07/01/24 23:59 23:59 23:59 23:59 Intake Total 1600 / 1600 1238 / 1863 625 / 625 Output Total 500 / 650 800 / 800 2200 / 2200 Balance 1100 / 950 438 / 1063 -1575 / -1575 Weight 76.884 kg 77.564 kg 77.5 kg Constitutional Constitutional: no acute distress *Routine HEENT Exam Head: Present normocephalic Eye: Present EOMI and PERRL ENT: Present mucous membranes moist *Routine Neck Exam Neck: Present supple; Absent lymphadenopathy *Routine Respiratory Exam Respiratory: Present CTA bilaterally *Routine Cardiovascular Exam Cardiovascular: Present RRR *Routine Abdominal Exam Abdominal: Present soft; Absent tenderness Comments: decreased bowel sounds *Routine Extremities Exam Extremities: Absent cyanosis, clubbing or edema *Routine Skin Exam Skin: Present warm; Absent rash *Routine Neurological Exam Neurological: Present alert and oriented X3 Assessment and Plan *Assessment and plan (1) Ileus, postoperative: Status: Acute Category: Medical Code(s): K91.89 - Other postprocedural complications and disorders of digestive system; K56.7 - Ileus, unspecified (2) Diarrhea: Status: Acute Category: Medical Code(s): R19.7 - Diarrhea, unspecified (3) S/P exploratory laparotomy: Status: Inactive Category: Surgical Code(s): Z98.890 - Other specified postprocedural states (4) CAD (coronary artery disease), [place] coronary artery: Status: Acute Qualifiers: [place] vs. transplanted heart: [place] heart Associated angina: unspecified whether angina present Qualified Code(s): I25.10 - Atherosclerotic heart disease of [place] coronary artery without angina pectoris Category: Medical Code(s): I25.10 - Atherosclerotic heart disease of [place] coronary artery without angina pectoris (5) History of heart attack: Status: Inactive Category: Medical Code(s): I25.2 - Old myocardial infarction (6) Depression: Status: Acute Qualifiers: Depression Type: unspecified Qualified Code(s): F32.9 - Major depressive disorder, single episode, unspecified Category: Medical Code(s): F32.9 - Major depressive disorder, single episode, unspecified Plan 58-year-old male with PMHx of CAD s/p stent, open appendectomy, and recent bowel resection due to small bowel obstruction. Presented to surgery clinic with persistent nausea and vomiting, dehiscence of proximal portion of the surgical wound, and diarrhea. Postop ileus Recent exploratory laparotomy with resection and end-to-end anastomosis Patient is [address]op[address] NG in place. Continue NPO. continue IV fluids pain control with toradol, dc narcotics continue NPO with NG zofran as needed Chronic conditions CAD s/p stent, Hx of heart attack depression Holding medications while NPO. Will resume when appropriate Holding Plavix SCD for DVT ppx Full code DC planning - pending surgical plan and clinical improvement
--- NOTE | 2024-07-01 18:31 | PC.NURSE ---
Pt NG tube clogged. This RN and MARIANNE Neri attempted flushing NG multiple times. Finally flushed NG tube and attempted to hook Pt back to suction and tube clogged again. Aspirate was noted to be very thick and mucus like. Suction machine alos changed out on the wall and NG tube is draining to low wall suction.
[2024-07-01 20:00] VITALS: BP 126/91; PULSE 73; PULSE 79; RESP 16; TEMP 36.8; O2SAT 95
[2024-07-01] MEDS: KETOROLAC 30MG/ML VIAL 15 MG IV (20:36)
[2024-07-01] MEDS: MELATONIN 5MG TABLET 10 MG PO (20:36)
[2024-07-02] VITALS (7 sets, daily range): BP systolic 132–153; BP diastolic 60–70; PULSE 70–89; RESP 16–21; TEMP 36.6–39.7; O2SAT 92–94; BMI 25.7
[2024-07-02] MEDS: LACTATED RINGERS 1000ML 1,000 ML 125 ML IV ×3 (04:28→23:21)
--- NOTE | 2024-07-02 05:11 | PC.NURSE ---
Patient is alert and oriented x4. Earlier this shift, the patient ambulated around the hallway with his before settling into bed and tolerated ambulating well. He has slept for most of the night, periodically awakening at times. Patient's remained at bedside. Patient's bowel sounds were hypoactive upon auscultation; patient has not had a bowel movement this shift. Patient's NG tube, anchored in the right nare, is currently hooked to continuous low suction; output is dark green with a mucus-like consistency. NG tube was flushed once this shift with 30mL of water for unclogging; 30mL was pulled back out of tube. Patient reports soreness in nose whenever NG tube is touched. He has not complained of nausea, nor has had any vomiting this shift. The patient took a shower earlier this shift; however, patient's abdominal dressing became wet while bathing. Abdominal dressing was repacked this shift with one piece of gauze and covered with one ABD pad; it was then secured with one strip of micropore tape each at the top and bottom. Patient tolerated the dressing change well; patient however did report some pain during unpacking/repacking the deep wound. Patient was medicated with Toradol per JAN for treatment of pain; relief of pain was reported. Patient was also given Melatonin per JAN to aid with sleep. LR fluids are currently infusing at 125mL/hr. Patient does not have any further complaints at this time. Call light within reach.
--- NOTE | 2024-07-02 06:00 | XR_ITS ---
FINAL REPORT CLINICAL HISTORY: BOWEL OBSTRUCTION COMPARISON: 06/17/2024 FINDINGS: A PA view of the chest was obtained. The mediastinum is unremarkable. There are numerous calcified granulomas throughout both lungs. There is no free air beneath the diaphragm. Upright and supine views of the abdomen reveal multiple air-filled moderately distended small bowel loops consistent with small-bowel obstruction. Findings are similar to previous. There is mild vascular calcification. NG tube tip terminates in the stomach. IMPRESSION: Small-bowel obstruction. Reviewed, Interpreted and Dictated by Jose Antonio Mg III, MD Transcribed by Keyla Marquez Authenticated and [facility]
[2024-07-02 06:15] LABS: Albumin Level 3.5 g/dl (3.5-5.0); Chloride 105 mmol/L (98-107); Potassium 4.2 mmoL/L (3.5-5.1); Sodium 133 mmol/L (136-145)
[2024-07-02 06:17] LABS: Blood Urea Nitrogen 22 mg/dl (9-20); Creatinine Clearance Estimated 120 mL/min (50-200); Estimated Glomerular Filt Rate 115 ml/min (>60); GFR (African American) 140 ML/MIN (>60)
[2024-07-02 06:18] LABS: Alanine Aminotransferase 52 U/L (12-78); Albumin/Globulin Ratio 1.3 (1.1-1.8); Alkaline Phosphatase 81 U/L (38-126); Anion Gap 12.2 mEq/L (5-15); Aspartate Amino Transferase 72 U/L (17-59); Bilirubin,Total 1.3 mg/dl (0.2-1.3); Calcium 8.1 mg/dl (8.4-10.2); Carbon Dioxide 20 mmol/L (22.0-30.0); Globulin 2.8 g/dL (1.3-3.2); Glucose 90 mg/dl (74-100); Total Protein,Serum 6.3 g/dl (6.3-8.2)
[2024-07-02 07:28] LABS: Adenovirus F 40/41, stool Not Detected (NotDetected); Astrovirus Not Detected (NotDetected); Campylobacter Not Detected (NotDetected); Clostridium Difficile A/B, PCR Not Detected (NotDetected); Cryptosporidium Not Detected (NotDetected); Cyclospora Cayetanesis Not Detected (NotDetected); Entamoeba histolytica Not Detected (NotDetected); Enteroaggregative E coli Not Detected (NotDetected); Enteropathogenic E coli Not Detected (NotDetected); Enterotoxigenic E coli Not Detected (NotDetected); Giardia lamblia Not Detected (NotDetected); Norovirus Not Detected (NotDetected); Plesimonas Shigalloides, PCR Not Detected (NotDetected); Rotavirus A Not Detected (NotDetected); Salmonella, PCR Not Detected (NotDetected); Sapovirus Not Detected (NotDetected); Shiga-like toxin E coli Not Detected (NotDetected); Shigella Enterovasive E coli Not Detected (NotDetected); Vibrio Cholerae Not Detected (NotDetected); Vibrio, PCR Not Detected (NotDetected); Yersinia Entercolitica, PCR Not Detected (NotDetected)
[2024-07-02] MEDS: SIMETHICONE 40MG/0.6ML DROPS; 30ML BOTTLE 2.4 ML PO ×3 (08:56→20:23)
--- NOTE | 2024-07-02 09:30 | XR_ITS ---
FINAL REPORT CLINICAL HISTORY: Confirm PICC line placement COMPARISON: 4 hours earlier FINDINGS: A single portable view of the chest was obtained. An NG tube is present with the tip below the diaphragm. Right-sided PICC line is present with the tip in the lower SVC. The heart size and pulmonary vascularity are within normal limits. There are multiple calcified granulomas in the lungs. No acute pulmonary abnormality is identified. The bony thorax is intact. IMPRESSION: Right-sided PICC line tip in the lower SVC. Reviewed, Interpreted and Dictated by Jose Antonio Mg III, MD Transcribed by Sarika Mahajan Authenticated and [facility]
--- NOTE | 2024-07-02 10:41 | PC.NURSE ---
Pt getting PICC line placed at this time. NG advanced by MD Nation to 58 cm.
--- NOTE | 2024-07-02 11:00 | P.PN_ITS ---
Subjective Narrative: Patient states that he actually feels better. He states that he has passed gas multiple times and actually had a bowel movement. However, acute abdominal series this morning reveals findings of persistent small bowel obstruction. NG tube is high in the cardia of the stomach. Exam Data for Last 24 hours Vital signs and Labs for Last 24 Hours: Temp Pulse Resp BP Pulse Ox O2 Del Method 99.6 F 70 21 132/69 94 L Room Air 07/02/24 08:00 07/02/24 08:00 07/02/24 08:00 07/02/24 08:00 07/02/24 08:00 07/02/24 10:44 Laboratory Results - last 24 hr 07/02/24 05:55: Sodium 133 L, Potassium 4.2, Chloride 105, Carbon Dioxide 20 L, Anion Gap 12.2, BUN 22 H, Creatinine 0.70 D, Estimated Creat Clear 120, Estimated GFR 115, Est GFR ( Amer) 140 D, Glucose 90, Calcium 8.1 L, Total Bilirubin 1.3, AST 72 H D, ALT 52, Alkaline Phosphatase 81, Total Protein 6.3, Albumin 3.5, Globulin 2.8, Albumin/Globulin Ratio 1.3 I & O for Last 24 hours: Intake & Output 06/29/24 06/30/24 07/01/24 07/02/24 11:59 11:59 11:59 11:59 Intake Total 1600 / 1600 1863 / 1863 1717 / 1717 Output Total 650 / 650 2350 / 2350 1450 / 1450 Balance 950 / 950 -487 / -487 267 / 267 Weight 171 lb 170 lb 13.732 oz 164 lb 4.721 oz *Routine Abdominal Exam Comments: Slightly distended. Nontender. Progress Note: A&P Assessment and plan (1) Ileus, postoperative: Status: Acute (2) Diarrhea: Status: Acute (3) S/P exploratory laparotomy: Status: Inactive (4) CAD (coronary artery disease), [place] coronary artery: Status: Acute (5) History of heart attack: Status: Inactive (6) Depression: Status: Acute Assessment and Plan Assessment and Plan for All Diagnoses:: I advanced his nasogastric tube. It seems to be functioning well. There is some discordance between the patient's subjective symptoms and his abdominal x- ray. Plan for continued slow nonoperative management at this time. I added simethicone to his medication regimen. I advanced his nasogastric tube. I will see if a PICC line can be placed to initiate TPN.
[2024-07-02] MEDS: [UNRECOGNIZED DRUG - REMARK] 1 EACH NOTAPPLIC (11:10)
[2024-07-02] MEDS: METOCLOPRAMIDE HCL 10MG/2ML VIAL 5 MG IVP ×3 (12:02→23:22)
[2024-07-02] MEDS: KETOROLAC 30MG/ML VIAL 15 MG IV ×2 (12:04→18:20)
[2024-07-02] MEDS: AMINO ACID 5% IV (12:10)
[2024-07-02] MEDS: DEX IV (12:10)
[2024-07-02] MEDS: [UNRECOGNIZED DRUG - OTHER] IV (12:10)
[2024-07-02] MEDS: FAT EMULSIONS 250 ML 60 ML IV (13:34)
--- NOTE | 2024-07-02 16:13 | PC.NURSE ---
Pt is resting in bed. TPN is currently infusing @ 25 ml/hr. Lipids infusing @ 60 ml/hr. NG to cont low wall suction. Total output 700 ml from NG. Pt's tempt has been increasing this afternoon. notified this afternoon of temp 103.2 oral. Awaiting new orders. Pharmacy also notified of pt's increase in temp due to recent starting of TPN and Lipids. Ice packs placed to pt's neck, underarms and groin area. Temp in room decreased. Call light within reach. Family at bedside.
[2024-07-02] MEDS: ACETAMINOPHEN 325MG TAB 650 MG PO (16:36)
[2024-07-02] MEDS: PIPERACILLIN/TAZO 3.375 GM in 0.9 % SODIUM CHLORIDE 50 ML IV ×2 (17:16→23:22)
--- NOTE | 2024-07-02 17:45 | P.PN_ITS ---
Subjective *Date: 07/02/24 *Time: 17:45 Interval history: seen at bedside, no complains of abdominal pain, denied Vomiting, has NG tube, but having low grade fevers Exam Data for Last 24 hours Vital signs and Labs for Last 24 Hours: Temp Pulse Resp BP Pulse Ox O2 Del Method 99.9 F H 89 18 153/69 H 92 L Room Air 07/02/24 17:25 07/02/24 16:00 07/02/24 16:00 07/02/24 16:00 07/02/24 16:00 07/02/24 17:00 Laboratory Results - last 24 hr 07/02/24 05:55: Sodium 133 L, Potassium 4.2, Chloride 105, Carbon Dioxide 20 L, Anion Gap 12.2, BUN 22 H, Creatinine 0.70 D, Estimated Creat Clear 120, Estimated GFR 115, Est GFR ( Amer) 140 D, Glucose 90, Calcium 8.1 L, Total Bilirubin 1.3, AST 72 H D, ALT 52, Alkaline Phosphatase 81, Total Protein 6.3, Albumin 3.5, Globulin 2.8, Albumin/Globulin Ratio 1.3 07/02/24 07:20: Stl Aeromonas (PCR) Not detected, Stl C. cayetanensis PCR Not detected, Stool Rotavirus (PCR) Not detected, Stl Adenov F 40/41 PCR Not detected, Stool Astrovirus (PCR) Not detected, Stool Campylobacter PCR Not detected, Stl C.difficile Tox PCR Not detected, Stool Cryptosporidium PCR Not detected, Stl E.coli Shiga Tox PCR Not detected, Stool E coli O157 PCR Not detected, Stl Enterotoxigenic E PCR Not detected, Stool EPEC (PCR) Not detected, Stool EAEC (PCR) Not detected, Stl E. histolytica PCR Not detected, Stool Giardia Lamblia PCR Not detected, Stool Salmonella PCR Not detected, Stool Sapovirus (PCR) Not detected, Stl P. shigelloides PCR Not detected, Stl Shigella/EIEC PCR Not detected, St Y.enterocolitica PCR Not detected, Stool Vibrio (PCR) Not detected, Stl Vibrio cholerae PCR Not detected, Stl Norovirus GI/GII PCR Not detected I & O for Last 24 hours: Intake & Output 08/06/24 08/07/24 08/08/24 08/09/24 23:59 23:59 23:59 23:59 Intake Total 1600 / 1600 1238 / 1863 1625 / 2342 717 / 717 Output Total 500 / 650 800 / 800 2950 / 2950 1250 / 1250 Balance 1100 / 950 438 / 1063 -1325 / -608 -533 / -533 Weight 76.884 kg 77.564 kg 77.5 kg 74.523 kg Constitutional Constitutional: no acute distress *Routine HEENT Exam Head: Present normocephalic Eye: Present EOMI and PERRL ENT: Present mucous membranes moist *Routine Neck Exam Neck: Present supple; Absent lymphadenopathy *Routine Respiratory Exam Respiratory: Present CTA bilaterally *Routine Cardiovascular Exam Cardiovascular: Present RRR *Routine Abdominal Exam Abdominal: Present soft; Absent tenderness Comments: decreased bowel sounds *Routine Extremities Exam Extremities: Absent cyanosis, clubbing or edema *Routine Skin Exam Skin: Present warm; Absent rash *Routine Neurological Exam Neurological: Present alert and oriented X3 Assessment and Plan *Assessment and plan (1) Ileus, postoperative: Status: Acute Category: Medical Code(s): K91.89 - Other postprocedural complications and disorders of digestive system; K56.7 - Ileus, unspecified (2) Diarrhea: Status: Acute Category: Medical Code(s): R19.7 - Diarrhea, unspecified (3) S/P exploratory laparotomy: Status: Inactive Category: Surgical Code(s): Z98.890 - Other specified postprocedural states (4) CAD (coronary artery disease), [place] coronary artery: Status: Acute Qualifiers: [place] vs. transplanted heart: [place] heart Associated angina: unspecified whether angina present Qualified Code(s): I25.10 - Atherosclerotic heart disease of [place] coronary artery without angina pectoris Category: Medical Code(s): I25.10 - Atherosclerotic heart disease of [place] coronary artery without angina pectoris (5) History of heart attack: Status: Inactive Category: Medical Code(s): I25.2 - Old myocardial infarction (6) Depression: Status: Acute Qualifiers: Depression Type: unspecified Qualified Code(s): F32.9 - Major depressive disorder, single episode, unspecified Category: Medical Code(s): F32.9 - Major depressive disorder, single episode, unspecified Plan 58-year-old male with PMHx of CAD s/p stent, open appendectomy, and recent bowel resection due to small bowel obstruction. Presented to surgery clinic with persistent nausea and vomiting, dehiscence of proximal portion of the surgical wound, and diarrhea. Postop ileus Recent exploratory laparotomy with resection and end-to-end anastomosis Patient is 14 days postop. NG in place. Continue NPO. continue IV fluids pain control with toradol, dc narcotics continue NPO with NG zofran as needed fevers check blood culture started on zosyn check lactate check CXR Chronic conditions CAD s/p stent, Hx of heart attack depression Holding medications while NPO. Will resume when appropriate Holding Plavix SCD for DVT ppx Full code DC planning - pending surgical plan and clinical improvement
--- NOTE | 2024-07-02 17:47 | XR_ITS ---
PROCEDURE INFORMATION: Exam: XR Chest Exam date and time: 07/02/2024 6:15 PM Age: 58 years old Clinical indication: Fever; Additional info: Fevers TECHNIQUE: Imaging protocol: Radiologic exam of the chest. Views: 1 view. COMPARISON: CR XR CHEST PORTABLE PICC PLAC 07/02/2024 11:39 AM FINDINGS: Tubes, catheters and devices: An NG tube is present, distal tip overlying the approximate location of the proximal stomach. Right subclavian PICC line is present, distal tip unchanged, overlying the approximate location of the atrial caval junction. Lungs: Lung volumes are mildly diminished. Multiple calcified granulomata are present, as before. There is mild increase in mild bibasilar opacities since prior exam, likely accentuated by diminished lung volumes. The lungs appear otherwise clear. Pleural spaces: No pleural effusions. Negative for pneumothorax. Heart/Mediastinum: Cardiac silhouette and pulmonary vasculature are within range of normal. Bones/joints: There is no evidence of acute fracture. IMPRESSION: 1. Mildly diminished lung volumes. 2. Mild increase in bibasilar opacities since prior exam, likely accentuated by diminished lung volumes.
[2024-07-02 18:04] LABS: Lactic Acid 0.8 mmol/L (0.7-2.1)
[2024-07-02 18:11] LABS: POC Glucose,Bedside 113 (70-110)
--- NOTE | 2024-07-02 18:17 | PC.NURSE ---
spoke with Marcelo from pharmacy, he stated that TPN and maintenance fluids should equal 190 mL/hr, therefore if TPN is at 50mL/hr, the maintenance fluids should be at 140 mL/hr
--- NOTE | 2024-07-02 19:53 | PC.NURSE ---
upon assessing patient, he was covered in sweat beads with fuzzy pj pants, gown, sheet and blanket on - oral temp 100.2. active bowel sounds in up quads and hypoactive bowel sounds in lower quads. midline dressing is C/D/I. patient denies pain at this moment. NGT at 58 on CLWS with dark mucousy output - NGT was flushed to help remove thick secretions from tube. TPN infusing in PICC in [place] at 50ml/hr with LR at 140ml/hr. patient and patient reports he had a soft bowel movement this morning and is continuing to pass gas. Patient does report he just doesn't feel good .
--- NOTE | 2024-07-02 20:17 | PC.NURSE ---
patient had a small soft BM at 07/02 2010.
[2024-07-02] MEDS: MELATONIN 5MG TABLET 10 MG PO (20:23)
--- NOTE | 2024-07-02 23:42 | PC.NURSE ---
checked glucose: 168. increased TPN to 65ml/hr and decreased LR to 125ml/hr. patient is drenched in sweat and states he is cold, but refuses to be changed at this moment and was told to ring out when he is ready and we will change him - rechecked temperature: 98.6F oral. Earlier in the shift around 1999, SCDs were placed bilaterally.
[2024-07-03] VITALS: BP 114/59; PULSE 52; RESP 16; TEMP 36.9; O2SAT 96
[2024-07-03 04:00] VITALS: BP 114/64; PULSE 61; RESP 16; TEMP 37.3; O2SAT 97; BMI 25.7
[2024-07-03] MEDS: METOCLOPRAMIDE HCL 10MG/2ML VIAL 5 MG IVP ×4 (04:34→23:11)
[2024-07-03] MEDS: PIPERACILLIN/TAZO 3.375 GM in 0.9 % SODIUM CHLORIDE 50 ML IV ×4 (04:34→23:12)
[2024-07-03 06:42] LABS: POC Glucose,Bedside 168 (70-110)
[2024-07-03 06:42] LABS: POC Glucose,Bedside 162 (70-110)
[2024-07-03 07:09] LABS: INR 1.08 (0.9-1.1)
[2024-07-03 07:14] LABS: Basophils % 0.5 % (0.1-2.0); Eosinophils % 0.4 % (0.1-12.0); Hemoglobin 12.1 g/dL (14.1-18.0); Lymphocytes # 0.8 K/mm3 (0.7-4.5); Lymphocytes % 15.4 % (10-50); Mean Corpuscular HGB Conc 31.8 g/dL (31.8-35.4); Mean Corpuscular Volume 94.4 fl (80-94); Mean Platelet Volume 8.7 fl (7.4-10.4); Monocytes # 0.2 K/mm3 (0.1-1.0); Neutrophils # 4.1 K/mm3 (1.8-7.8); Neutrophils % 79.7 % (37.0-80.0); Platelet Count 287 K/mm3 (142-424); Red Blood Count 4.03 M/mm3 (4.60-6.20); Red Cell Distribution Width 13.7 % (11.5-17.5); White Blood Count 5.2 K/mm3 (4.8-10.8)
--- NOTE | 2024-07-03 07:15 | PC.NURSE ---
tried calling hospitalist x2 to report positive blood cultures, unable to notify d/t no answer, will try again later.
[2024-07-03 07:35] LABS: Alanine Aminotransferase 49 U/L (12-78); Albumin Level 2.9 g/dl (3.5-5.0); Alkaline Phosphatase 52 U/L (38-126); Anion Gap 7.4 mEq/L (5-15); Aspartate Amino Transferase 35 U/L (17-59); Bilirubin,Total 0.6 mg/dl (0.2-1.3); Blood Urea Nitrogen 17 mg/dl (9-20); Calcium 8.2 mg/dl (8.4-10.2); Carbon Dioxide 28 mmol/L (22.0-30.0); Chloride 104 mmol/L (98-107); Cholesterol 59 mg/dl (140-200); Creatinine Clearance Estimated 120 mL/min (50-200); Estimated Glomerular Filt Rate 115 ml/min (>60); GFR (African American) 140 ML/MIN (>60); Globulin 2.8 g/dL (1.3-3.2); Glucose 160 mg/dl (74-100); Magnesium 2.1 mg/dl (1.6-2.3); Phosphorous 3.4 mg/dl (2.5-4.5); Potassium 3.4 mmoL/L (3.5-5.1); Sodium 136 mmol/L (136-145); Total Protein,Serum 5.7 g/dl (6.3-8.2); Triglycerides 89 mg/dl (30-150)
[2024-07-03 07:52] VITALS: BP 120/64; PULSE 57; RESP 18; TEMP 37.1; O2SAT 97
[2024-07-03] MEDS: AA 5 %/CALCIUM/LYTES/DEXT 20 % 1,000 ML 65 ML IV (08:37)
[2024-07-03] MEDS: SIMETHICONE 40MG/0.6ML DROPS; 30ML BOTTLE 2.4 ML PO ×3 (08:38→19:43)
[2024-07-03] MEDS: KCl 10mEq/100ml 100 ML 100 MEQ IV ×4 (09:25→13:01)
--- NOTE | 2024-07-03 09:41 | XR_ITS ---
PROCEDURE INFORMATION: Exam: XR Complete Acute Abdomen Series Including Chest Exam date and time: 07/03/2024 9:57 AM Age: 58 years old Clinical indication: Other: Bowel obstruction, fever; Additional info: Bowel obstruction, fevers TECHNIQUE: Imaging protocol: Radiologic exam. Complete acute abdomen series, including 2 or more views of the abdomen and a single view chest. COMPARISON: CR XR CHEST PORTABLE 07/02/2024 6:15 PM FINDINGS: Tubes, catheters and devices: Nasogastric tube in the proximal stomach. This needs to be advanced. Lungs: Subsegmental atelectasis right lung base. Pleural spaces: Normal. No pleural effusions. No pneumothorax. Heart/Mediastinum: Normal. No cardiomegaly. Gastrointestinal tract: Multiple dilated loops of small bowel with air-fluid levels. Paucity of bowel gas within the colon. Intraperitoneal space: Normal. No free air. Bones/joints: Normal. No acute fracture. Soft tissues: Normal. IMPRESSION: 1. Findings compatible with small bowel obstruction. 2. Nasogastric tube in the proximal stomach. This needs to be advanced.
--- NOTE | 2024-07-03 09:41 | EXP.SURG.PN ---
Subjective Narrative: Patient had notable acute fever overnight. I was contacted and ordered blood cultures which actually returned positive for E. coli and Klebsiella interestingly. When he did spike a fever he was started on Zosyn. Patient states that he feels much better today. No nausea. Passing gas. Has had a couple of bowel movements. He was started on TPN yesterday after PICC line placed. Patient is taking ice chips but has had moderate NG output. He did have a stool PCR panel sent which is negative for infectious etiology. White blood cell count is normal. Chemistries and LFTs unremarkable except for mildly diminished potassium of 3.4 which is being replaced. . Exam Data for Last 24 hours Vital signs and Labs for Last 24 Hours: Temp Pulse Resp BP Pulse Ox O2 Del Method 98.8 F 57 L 18 120/64 97 Room Air 07/03/24 07:52 07/03/24 07:52 07/03/24 07:52 07/03/24 07:52 07/03/24 07:52 07/03/24 08:00 Laboratory Results - last 24 hr 07/01/24 05:52: Sodium 136, Potassium 4.2, Chloride 103, Carbon Dioxide 26, Anion Gap 11.2, BUN 21 H, Creatinine 0.90, Estimated Creat Clear 97, Estimated GFR 86, Est GFR ( Amer) 105, Glucose 102 H, Calcium 8.4, Total Bilirubin 1.1, AST 36, ALT 57, Alkaline Phosphatase 65, Total Protein 6.2 L, Albumin 3.4 L, Globulin 2.8, Albumin/Globulin Ratio 1.2 07/02/24 05:55: Sodium 133 L, Potassium 4.2, Chloride 105, Carbon Dioxide 20 L, Anion Gap 12.2, BUN 22 H, Creatinine 0.70 D, Estimated Creat Clear 120, Estimated GFR 115, Est GFR ( Amer) 140 D, Glucose 90, Calcium 8.1 L, Total Bilirubin 1.3, AST 72 H D, ALT 52, Alkaline Phosphatase 81, Total Protein 6.3, Albumin 3.5, Globulin 2.8, Albumin/Globulin Ratio 1.3 07/02/24 07:20: Stl Aeromonas (PCR) Not detected, Stl C. cayetanensis PCR Not detected, Stool Rotavirus (PCR) Not detected, Stl Adenov F 40/41 PCR Not detected, Stool Astrovirus (PCR) Not detected, Stool Campylobacter PCR Not detected, Stl C.difficile Tox PCR Not detected, Stool Cryptosporidium PCR Not detected, Stl E.coli Shiga Tox PCR Not detected, Stool E coli O157 PCR Not detected, Stl Enterotoxigenic E PCR Not detected, Stool EPEC (PCR) Not detected, Stool EAEC (PCR) Not detected, Stl E. histolytica PCR Not detected, Stool Giardia Lamblia PCR Not detected, Stool Salmonella PCR Not detected, Stool Sapovirus (PCR) Not detected, Stl P. shigelloides PCR Not detected, Stl Shigella/EIEC PCR Not detected, St Y.enterocolitica PCR Not detected, Stool Vibrio (PCR) Not detected, Stl Vibrio cholerae PCR Not detected, Stl Norovirus GI/GII PCR Not detected 07/02/24 17:00: Lactate 0.8 07/02/24 18:01: POC Glucose 113 H 07/02/24 23:21: POC Glucose 168 H 07/03/24 06:17: POC Glucose 162 H 07/03/24 06:30: WBC 5.2 D, RBC 4.03 L, Hgb 12.1 L, Hct 38.0 L, MCV 94.4 H, MCH 30.0, MCHC 31.8, RDW 13.7, Plt Count 287, MPV 8.7, Neut % (Auto) 79.7, Lymph % (Auto) 15.4, [place] % (Auto) 4.0, Eos % (Auto) 0.4, Baso % (Auto) 0.5, Neut # (Auto) 4.1, Lymph # (Auto) 0.8, [place] # (Auto) 0.2, Eos # (Auto) 0.0, Baso # (Auto) 0.0, PT 12.0, INR 1.08, Sodium 136, Potassium 3.4 L, Chloride 104, Carbon Dioxide 28, Anion Gap 7.4, BUN 17, Creatinine 0.70, Estimated Creat Clear 120, Estimated GFR 115, Est GFR ( Amer) 140, Glucose 160 H, Calcium 8.2 L, Phosphorus 3.4, Magnesium 2.1, Total Bilirubin 0.6, AST 35 D, ALT 49, Alkaline Phosphatase 52, Total Protein 5.7 L, Albumin 2.9 L D, Globulin 2.8, Albumin/Globulin Ratio 1.0 L, Triglycerides 89, Cholesterol 59 L I & O for Last 24 hours: Intake & Output 06/30/24 07/01/24 07/02/24 07/03/24 11:59 11:59 11:59 11:59 Intake Total 1600 / 1600 1863 / 1863 1717 / 1717 2511 / 2511 Output Total 650 / 650 2350 / 2350 1450 / 1450 2175 / 2175 Balance 950 / 950 -487 / -487 267 / 267 336 / 336 Weight 171 lb 170 lb 13.732 oz 164 lb 4.721 oz 164 lb 4.721 oz Microbiology Reports for the Last 24 Hours: Microbiology 07/02/24 17:11 Blood Blood Culture - Preliminary 07/02/24 17:00 Blood Blood Culture - Preliminary *Routine Abdominal Exam Abdominal: Present soft; Absent tenderness Comments: Abdomen soft and nontender with dressing clean and dry. Progress Note: A&P Assessment and plan (1) Ileus, postoperative: Status: Acute (2) Diarrhea: Status: Acute (3) S/P exploratory laparotomy: Status: Inactive (4) CAD (coronary artery disease), [place] coronary artery: Status: Acute (5) History of heart attack: Status: Inactive (6) Depression: Status: Acute Assessment and Plan Assessment and Plan for All Diagnoses:: I will check an acute abdominal series. If bowel gas pattern is showing improvement may be try nasogastric tube clamped. Fever and positive blood culture is somewhat of an enigma. This would not be necessarily consistent with small bowel etiology. I reviewed his previous CT scan from 5 days ago which revealed no evidence of any abscess. If he has additional fevers may consider follow-up CT scan which would best be performed with IV and oral contrast (if tolerated) to evaluate for possible intra-abdominal abscess.
--- NOTE | 2024-07-03 10:01 | PC.NURSE ---
pt off floor to radiology
--- NOTE | 2024-07-03 10:30 | PC.NURSE ---
NG advanced to 60 and hooked to gravity with drainage bag per .
[2024-07-03 12:00] VITALS: BP 121/69; PULSE 59; RESP 18; TEMP 36.4; O2SAT 92
[2024-07-03] MEDS: FAT EMULSIONS 250 ML 60 ML IV (13:01)
[2024-07-03] MEDS: LACTATED RINGERS 1000ML 1,000 ML 125 ML IV ×2 (13:08→23:16)
[2024-07-03] MEDS: KETOROLAC 30MG/ML VIAL 15 MG IV (13:48)
[2024-07-03 13:53] LABS: POC Glucose,Bedside 141 (70-110)
--- NOTE | 2024-07-03 15:23 | EXP.PN ---
Subjective *Date: 07/03/24 *Time: 15:23 Interval history: seen at bedside, no complains of abdominal pain, denied Vomiting, has NG tube, but having low grade fevers Exam Data for Last 24 hours Vital signs and Labs for Last 24 Hours: Temp Pulse Resp BP Pulse Ox O2 Del Method 97.5 F L 59 L 18 121/69 92 L Room Air 07/03/24 12:00 07/03/24 12:00 07/03/24 12:00 07/03/24 12:00 07/03/24 12:00 07/03/24 14:47 Laboratory Results - last 24 hr 07/01/24 05:52: Sodium 136, Potassium 4.2, Chloride 103, Carbon Dioxide 26, Anion Gap 11.2, BUN 21 H, Creatinine 0.90, Estimated Creat Clear 97, Estimated GFR 86, Est GFR ( Amer) 105, Glucose 102 H, Calcium 8.4, Total Bilirubin 1.1, AST 36, ALT 57, Alkaline Phosphatase 65, Total Protein 6.2 L, Albumin 3.4 L, Globulin 2.8, Albumin/Globulin Ratio 1.2 07/02/24 05:55: Sodium 133 L, Potassium 4.2, Chloride 105, Carbon Dioxide 20 L, Anion Gap 12.2, BUN 22 H, Creatinine 0.70 D, Estimated Creat Clear 120, Estimated GFR 115, Est GFR ( Amer) 140 D, Glucose 90, Calcium 8.1 L, Total Bilirubin 1.3, AST 72 H D, ALT 52, Alkaline Phosphatase 81, Total Protein 6.3, Albumin 3.5, Globulin 2.8, Albumin/Globulin Ratio 1.3 07/02/24 07:20: Stl Aeromonas (PCR) Not detected, Stl C. cayetanensis PCR Not detected, Stool Rotavirus (PCR) Not detected, Stl Adenov F 40/41 PCR Not detected, Stool Astrovirus (PCR) Not detected, Stool Campylobacter PCR Not detected, Stl C.difficile Tox PCR Not detected, Stool Cryptosporidium PCR Not detected, Stl E.coli Shiga Tox PCR Not detected, Stool E coli O157 PCR Not detected, Stl Enterotoxigenic E PCR Not detected, Stool EPEC (PCR) Not detected, Stool EAEC (PCR) Not detected, Stl E. histolytica PCR Not detected, Stool Giardia Lamblia PCR Not detected, Stool Salmonella PCR Not detected, Stool Sapovirus (PCR) Not detected, Stl P. shigelloides PCR Not detected, Stl Shigella/EIEC PCR Not detected, St Y.enterocolitica PCR Not detected, Stool Vibrio (PCR) Not detected, Stl Vibrio cholerae PCR Not detected, Stl Norovirus GI/GII PCR Not detected 07/02/24 17:00: Lactate 0.8 07/02/24 18:01: POC Glucose 113 H 07/02/24 23:21: POC Glucose 168 H 07/03/24 06:17: POC Glucose 162 H 07/03/24 06:30: WBC 5.2 D, RBC 4.03 L, Hgb 12.1 L, Hct 38.0 L, MCV 94.4 H, MCH 30.0, MCHC 31.8, RDW 13.7, Plt Count 287, MPV 8.7, Neut % (Auto) 79.7, Lymph % (Auto) 15.4, [place] % (Auto) 4.0, Eos % (Auto) 0.4, Baso % (Auto) 0.5, Neut # (Auto) 4.1, Lymph # (Auto) 0.8, [place] # (Auto) 0.2, Eos # (Auto) 0.0, Baso # (Auto) 0.0, PT 12.0, INR 1.08, Sodium 136, Potassium 3.4 L, Chloride 104, Carbon Dioxide 28, Anion Gap 7.4, BUN 17, Creatinine 0.70, Estimated Creat Clear 120, Estimated GFR 115, Est GFR ( Amer) 140, Glucose 160 H, Calcium 8.2 L, Phosphorus 3.4, Magnesium 2.1, Total Bilirubin 0.6, AST 35 D, ALT 49, Alkaline Phosphatase 52, Total Protein 5.7 L, Albumin 2.9 L D, Globulin 2.8, Albumin/Globulin Ratio 1.0 L, Triglycerides 89, Cholesterol 59 L 07/03/24 13:44: POC Glucose 141 H I & O for Last 24 hours: Intake & Output 06/30/24 07/01/24 07/02/24 07/03/24 23:59 23:59 23:59 23:59 Intake Total 1238 / 1863 1625 / 2342 797 / 797 2431 / 2431 Output Total 800 / 800 2950 / 2950 1250 / 1250 1325 / 1325 Balance 438 / 1063 -1325 / -608 -453 / -453 1106 / 1106 Weight 77.564 kg 77.5 kg 74.523 kg 74.523 kg Microbiology Reports for the Last 24 Hours: Microbiology 07/02/24 17:11 Blood Blood Culture - Preliminary 07/02/24 17:00 Blood Blood Culture - Preliminary Constitutional Constitutional: no acute distress *Routine HEENT Exam Head: Present normocephalic Eye: Present EOMI and PERRL ENT: Present mucous membranes moist *Routine Neck Exam Neck: Present supple; Absent lymphadenopathy *Routine Respiratory Exam Respiratory: Present CTA bilaterally *Routine Cardiovascular Exam Cardiovascular: Present RRR *Routine Abdominal Exam Abdominal: Present soft and normoactive bowel sounds; Absent tenderness *Routine Extremities Exam Extremities: Absent cyanosis, clubbing or edema *Routine Skin Exam Skin: Present warm; Absent rash *Routine Neurological Exam Neurological: Present alert and oriented X3 Assessment and Plan *Assessment and plan (1) Ileus, postoperative: Status: Acute Category: Medical Code(s): K91.89 - Other postprocedural complications and disorders of digestive system; K56.7 - Ileus, unspecified (2) Diarrhea: Status: Acute Category: Medical Code(s): R19.7 - Diarrhea, unspecified (3) S/P exploratory laparotomy: Status: Inactive Category: Surgical Code(s): Z98.890 - Other specified postprocedural states (4) CAD (coronary artery disease), [place] coronary artery: Status: Acute Qualifiers: [place] vs. transplanted heart: [place] heart Associated angina: unspecified whether angina present Qualified Code(s): I25.10 - Atherosclerotic heart disease of [place] coronary artery without angina pectoris Category: Medical Code(s): I25.10 - Atherosclerotic heart disease of [place] coronary artery without angina pectoris (5) History of heart attack: Status: Inactive Category: Medical Code(s): I25.2 - Old myocardial infarction (6) Depression: Status: Acute Qualifiers: Depression Type: unspecified Qualified Code(s): F32.9 - Major depressive disorder, single episode, unspecified Category: Medical Code(s): F32.9 - Major depressive disorder, single episode, unspecified Plan 58-year-old male with PMHx of CAD s/p stent, open appendectomy, and recent bowel resection due to small bowel obstruction. Presented to surgery clinic with persistent nausea and vomiting, dehiscence of proximal portion of the surgical wound, and diarrhea Postop ileus Recent exploratory laparotomy with resection and end-to-end anastomosis Patient is 14 days postop. NG in place Continue NPO continue IV fluids pain control with toradol, dc narcotics continue NPO with NG zofran as needed fevers check blood culture - positive for GRAM NEGATIVE RODS PCR: Escherichia coli and Klebsiella pneumoniae group Resistance Gene Detected continue on zosyn check lactate check CXR - no consoldation noted Chronic conditions CAD s/p stent, Hx of heart attack depression Holding medications while NPO. Will resume when appropriate Holding Plavix SCD for DVT ppx Full code DC planning- pending surgical plan and clinical improvement
[2024-07-03 16:00] VITALS: BP 116/63; PULSE 56; RESP 18; TEMP 36.9; O2SAT 95
--- NOTE | 2024-07-03 16:40 | PC.NURSE ---
pt has overall had a good shift. pt has denied abdominal pain thus far. pt's NG has been attached to drainage bag since 1030 this shift per . pt has denied bloating or nausea. pt's abdomen has remained soft throughout shift. NG tube was advanced to 60cm per earlier in shift. pt ambulated this a.m. in the hallway with his . pt c/o headache and pain to rt nare previous in shift and pt was medicated per jan. pt's K+ was noted to be 3.4 on this morning's labs. pt has received 4 bags of 10meq K+. no new orders at this time. midline dressing remains cdi. call light within reach.
[2024-07-03] MEDS: MELATONIN 5MG TABLET 10 MG PO (19:45)
[2024-07-03 20:00] VITALS: BP 119/68; PULSE 55; RESP 16; TEMP 37.2; O2SAT 97
[2024-07-04] VITALS: BP 120/60; PULSE 69; RESP 16; TEMP 37.6; O2SAT 95
[2024-07-04 00:12] LABS: POC Glucose,Bedside 125 (70-110)
[2024-07-04] MEDS: AA 5 %/CALCIUM/LYTES/DEXT 20 % 1,000 ML 65 ML IV (01:24)
[2024-07-04 04:00] VITALS: BP 139/58; PULSE 57; RESP 16; TEMP 36.7; O2SAT 95; BMI 25.7
[2024-07-04] MEDS: PIPERACILLIN/TAZO 3.375 GM in 0.9 % SODIUM CHLORIDE 50 ML IV ×4 (04:24→23:03)
[2024-07-04] MEDS: METOCLOPRAMIDE HCL 10MG/2ML VIAL 5 MG IVP ×4 (04:24→23:03)
[2024-07-04] MEDS: KETOROLAC 30MG/ML VIAL 15 MG IV ×3 (04:29→20:25)
[2024-07-04 06:44] LABS: POC Glucose,Bedside 274 (70-110)
--- NOTE | 2024-07-04 07:00 | XR_ITS ---
PROCEDURE INFORMATION: Exam: XR Complete Acute Abdomen Series Including Chest Exam date and time: 07/04/2024 7:11 AM Age: 58 years old Clinical indication: Condition or disease; Other: Obstruction; Additional info: Bowel obstruction TECHNIQUE: Imaging protocol: Radiologic exam. Complete acute abdomen series, including 2 or more views of the abdomen and a single view chest. COMPARISON: CR XR ACUTE ABDOMEN SERIES 07/03/2024 9:57 AM FINDINGS: Tubes, catheters and devices: An enteric feeding tube is present, with its tip located in the stomach . The gastric side hole is in the distal esophagus. Consequently the tube needs to be advanced 9 cm. A right peripherally inserted central venous catheter lies with its tip in the superior vena cava. Lungs: Atelectasis right base. No consolidation. Pleural spaces: Normal. No pleural effusions. No pneumothorax. Heart/Mediastinum: Normal. No cardiomegaly. Gastrointestinal tract: Multiple loops of dilated small bowel with air-fluid levels may represent obstruction or ileus.. Intraperitoneal space: Normal. No free air. Bones/joints: Degenerative changes along the thoracolumbar spine Soft tissues: Normal. IMPRESSION: 1. An enteric feeding tube is present, with its tip located in the stomach . The gastric side hole is in the distal esophagus. Consequently the tube needs to be advanced 9 cm. 2. Multiple loops of dilated small bowel with air-fluid levels may represent obstruction or ileus..
[2024-07-04 07:36] LABS: Basophils % 0.3 % (0.1-2.0); Eosinophils # 0.1 K/mm3 (0.0-0.4); Eosinophils % 1.1 % (0.1-12.0); Hematocrit 37.9 % (42.0-52.0); Hemoglobin 12.3 g/dL (14.1-18.0); Lymphocytes # 0.5 K/mm3 (0.7-4.5); Lymphocytes % 7.4 % (10-50); Mean Corpuscular HGB Conc 32.4 g/dL (31.8-35.4); Mean Corpuscular Hemoglobin 30.8 pg (27.0-31.2); Mean Platelet Volume 9.3 fl (7.4-10.4); Monocytes # 0.4 K/mm3 (0.1-1.0); Monocytes % 7.1 % (1.7-9.3); Neutrophils # 5.3 K/mm3 (1.8-7.8); Neutrophils % 84.2 % (37.0-80.0); Platelet Count 266 K/mm3 (142-424); Red Blood Count 3.99 M/mm3 (4.60-6.20); Red Cell Distribution Width 13.6 % (11.5-17.5); White Blood Count 6.3 K/mm3 (4.8-10.8)
[2024-07-04 07:40] LABS: Albumin Level 3.1 g/dl (3.5-5.0); Chloride 108 mmol/L (98-107); Potassium 3.8 mmoL/L (3.5-5.1); Sodium 137 mmol/L (136-145)
[2024-07-04 07:43] LABS: Alanine Aminotransferase 45 U/L (12-78); Albumin/Globulin Ratio 1.1 (1.1-1.8); Alkaline Phosphatase 63 U/L (38-126); Anion Gap 8.8 mEq/L (5-15); Aspartate Amino Transferase 32 U/L (17-59); Bilirubin,Total 0.6 mg/dl (0.2-1.3); Blood Urea Nitrogen 11 mg/dl (9-20); Carbon Dioxide 24 mmol/L (22.0-30.0); Creatinine Clearance Estimated 120 mL/min (50-200); Estimated Glomerular Filt Rate 115 ml/min (>60); GFR (African American) 140 ML/MIN (>60); Globulin 2.7 g/dL (1.3-3.2); Glucose 111 mg/dl (74-100); Phosphorous 4.1 mg/dl (2.5-4.5); Total Protein,Serum 5.8 g/dl (6.3-8.2)
[2024-07-04 08:00] VITALS: BP 120/69; PULSE 57; RESP 18; TEMP 36.5; O2SAT 95
--- NOTE | 2024-07-04 10:16 | XR_ITS ---
PROCEDURE INFORMATION: Exam: XR Chest Exam date and time: 07/04/2024 11:44 AM Age: 58 years old Clinical indication: Device placement; Ng tube; Additional info: Ng placement TECHNIQUE: Imaging protocol: Radiologic exam of the chest. Views: 1 view. COMPARISON: CR XR ACUTE ABDOMEN SERIES 07/04/2024 7:11 AM FINDINGS: Tubes, catheters and devices: An enteric feeding tube is present within the stomach. The tip is not clearly identified. Lungs: Multiple calcified granulomas. No focal consolidation Pleural spaces: Unremarkable. No pleural effusion. No pneumothorax. Heart/Mediastinum: Unremarkable. No cardiomegaly. Bones/joints: Unremarkable. IMPRESSION: An enteric feeding tube is present within the stomach. The tip is not clearly identified. Recommend follow-up abdominal x-ray if clinically indicated
--- NOTE | 2024-07-04 10:16 | XR_ITS ---
PROCEDURE INFORMATION: Exam: XR Abdomen Exam date and time: 07/04/2024 11:44 AM Age: 58 years old Clinical indication: Device placement; Gi device; Nasogastric tube; Additional info: Ng placement TECHNIQUE: Imaging protocol: Radiologic exam of the abdomen. Views: Frontal supine view of the abdomen. 1 View. COMPARISON: CR XR KUB 07/04/2024 11:44 AM FINDINGS: Tubes, catheters and devices: An enteric feeding tube is present, with its tip located in the stomach in good position.. Gastrointestinal tract: Multiple loops of dilated bowel may represent obstruction or ileus. Bones/joints: Unremarkable. IMPRESSION: 1. An enteric feeding tube is present, with its tip located in the stomach in good position.. 2. Multiple loops of dilated bowel may represent obstruction or ileus.
[2024-07-04] MEDS: LIDOCAINE 2% UROJET 10ML 10 ML TP (10:19)
--- NOTE | 2024-07-04 10:21 | EXP.SURG.PN ---
Subjective Narrative: Patient actually feels better than he has in basically a week. He tolerated his nasogastric tube to drain bag for 24 hours. Yesterday during the day he had out 300 cc and overnight 150. He has had no nausea or emesis. He states that he has had multiple bowel movements interestingly which have been particulate liquid and last 1 was watery. He is passing gas. Acute abdominal series this morning reveals nasogastric tube with its tip near the GE junction. There are multiple loops of dilated small bowel with some air-fluid levels. Exam Data for Last 24 hours Vital signs and Labs for Last 24 Hours: Temp Pulse Resp BP Pulse Ox O2 Del Method 97.7 F 57 L 18 120/69 95 Room Air 07/04/24 08:00 07/04/24 08:00 07/04/24 08:00 07/04/24 08:00 07/04/24 08:00 07/04/24 09:00 Laboratory Results - last 24 hr 07/03/24 13:44: POC Glucose 141 H 07/04/24 00:03: POC Glucose 125 H 07/04/24 05:42: POC Glucose 274 H 07/04/24 06:40: WBC 6.3, RBC 3.99 L, Hgb 12.3 L, Hct 37.9 L, MCV 95.0 H, MCH 30.8, MCHC 32.4, RDW 13.6, Plt Count 266, MPV 9.3, Neut % (Auto) 84.2 H, Lymph % (Auto) 7.4 L, [place] % (Auto) 7.1, Eos % (Auto) 1.1, Baso % (Auto) 0.3, Neut # (Auto) 5.3, Lymph # (Auto) 0.5 L, [place] # (Auto) 0.4, Eos # (Auto) 0.1, Baso # (Auto) 0.0, Sodium 137, Potassium 3.8, Chloride 108 H, Carbon Dioxide 24, Anion Gap 8.8, BUN 11 D, Creatinine 0.70, Estimated Creat Clear 120, Estimated GFR 115, Est GFR ( Amer) 140, Glucose 111 H, Calcium 8.0 L, Phosphorus 4.1, Magnesium 2.0, Total Bilirubin 0.6, AST 32, ALT 45, Alkaline Phosphatase 63, Total Protein 5.8 L, Albumin 3.1 L, Globulin 2.7, Albumin/Globulin Ratio 1.1 I & O for Last 24 hours: Intake & Output 07/01/24 07/02/24 07/03/24 07/04/24 11:59 11:59 11:59 11:59 Intake Total 1863 / 1863 1717 / 1717 2511 / 2511 3749 / 3749 Output Total 2350 / 2350 1450 / 1450 2175 / 2175 1125 / 1125 Balance -487 / -487 267 / 267 336 / 336 2624 / 2624 Weight 170 lb 13.732 oz 164 lb 4.721 oz 164 lb 4.721 oz 164 lb 4.721 oz Microbiology Reports for the Last 24 Hours: Microbiology 07/02/24 17:11 Blood Blood Culture - Preliminary 07/02/24 17:00 Blood Blood Culture - Preliminary *Routine Abdominal Exam Abdominal: Present soft; Absent tenderness Progress Note: A&P Assessment and plan (1) Ileus, postoperative: Status: Acute (2) Diarrhea: Status: Acute (3) S/P exploratory laparotomy: Status: Inactive (4) CAD (coronary artery disease), [place] coronary artery: Status: Acute (5) History of heart attack: Status: Inactive (6) Depression: Status: Acute Assessment and Plan Assessment and Plan for All Diagnoses:: Clinically patient seems to be doing better than radiographically. Upon reviewing his films prior to seeing the patient I felt that he may require repeat operation. However clinically he is doing rather well. I was present in the room when the nurses advanced the nasogastric tube and appreciable amount. At this point I will, based on his x-rays, continue nasogastric decompression and place it back to suction due to the findings on his radiographs. I will see if he can undergo a small bowel follow-through tomorrow to definitively evaluate ileus versus early recurrent obstruction. If he does have obstruction may need repeat laparotomy unfortunately.
[2024-07-04] MEDS: LACTATED RINGERS 1000ML 1,000 ML 125 ML IV ×2 (10:25→20:25)
[2024-07-04] MEDS: SIMETHICONE 40MG/0.6ML DROPS; 30ML BOTTLE 2.4 ML PO ×3 (10:26→20:25)
[2024-07-04] MEDS: MAGNESIUM SULFATE IN WATER 2 GM/50 ML PIGGYBACK IV (11:17)
[2024-07-04 12:00] VITALS: BP 130/68; PULSE 53; RESP 18; TEMP 36.8; O2SAT 95
[2024-07-04 12:49] LABS: POC Glucose,Bedside 132 (70-110)
[2024-07-04] MEDS: KCl 10mEq/100ml 100 ML 100 MEQ IV ×2 (13:18→14:28)
[2024-07-04] MEDS: FAT EMULSIONS 250 ML 60 ML IV (15:19)
[2024-07-04 16:00] VITALS: BP 127/69; PULSE 61; RESP 18; TEMP 37.1; O2SAT 96
--- NOTE | 2024-07-04 17:11 | P.PN_ITS ---
Subjective *Date: 07/04/24 *Time: 17:15 Interval history: seen at bedside, no complains of abdominal pain, denied Vomiting, has NG tube, fevers improved Exam Data for Last 24 hours Vital signs and Labs for Last 24 Hours: Temp Pulse Resp BP Pulse Ox O2 Del Method 98.7 F 61 18 127/69 96 Room Air 07/04/24 16:00 07/04/24 16:00 07/04/24 16:00 07/04/24 16:00 07/04/24 16:00 07/04/24 16:00 Laboratory Results - last 24 hr 07/04/24 00:03: POC Glucose 125 H 07/04/24 05:42: POC Glucose 274 H 07/04/24 06:40: WBC 6.3, RBC 3.99 L, Hgb 12.3 L, Hct 37.9 L, MCV 95.0 H, MCH 30.8, MCHC 32.4, RDW 13.6, Plt Count 266, MPV 9.3, Neut % (Auto) 84.2 H, Lymph % (Auto) 7.4 L, [place] % (Auto) 7.1, Eos % (Auto) 1.1, Baso % (Auto) 0.3, Neut # (Auto) 5.3, Lymph # (Auto) 0.5 L, [place] # (Auto) 0.4, Eos # (Auto) 0.1, Baso # (Auto) 0.0, Sodium 137, Potassium 3.8, Chloride 108 H, Carbon Dioxide 24, Anion Gap 8.8, BUN 11 D, Creatinine 0.70, Estimated Creat Clear 120, Estimated GFR 115, Est GFR ( Amer) 140, Glucose 111 H, Calcium 8.0 L, Phosphorus 4.1, Magnesium 2.0, Total Bilirubin 0.6, AST 32, ALT 45, Alkaline Phosphatase 63, Total Protein 5.8 L, Albumin 3.1 L, Globulin 2.7, Albumin/Globulin Ratio 1.1 07/04/24 12:39: POC Glucose 132 H I & O for Last 24 hours: Intake & Output 07/01/24 07/02/24 07/03/24 07/04/24 23:59 23:59 23:59 23:59 Intake Total 1625 / 2342 797 / 797 4066 / 4126 2114 / 2114 Output Total 2950 / 2950 1250 / 1250 1325 / 1500 1900 / 1900 Balance -1325 / -608 -453 / -453 2741 / 2626 214 / 214 Weight 77.5 kg 74.523 kg 74.523 kg 74.523 kg Microbiology Reports for the Last 24 Hours: Microbiology 07/02/24 17:11 Blood Blood Culture - Preliminary 07/02/24 17:00 Blood Blood Culture - Preliminary Constitutional Constitutional: no acute distress *Routine HEENT Exam Head: Present normocephalic Eye: Present EOMI and PERRL ENT: Present mucous membranes moist *Routine Neck Exam Neck: Present supple; Absent lymphadenopathy *Routine Respiratory Exam Respiratory: Present CTA bilaterally *Routine Cardiovascular Exam Cardiovascular: Present RRR *Routine Abdominal Exam Abdominal: Present soft and normoactive bowel sounds; Absent tenderness *Routine Extremities Exam Extremities: Absent cyanosis, clubbing or edema *Routine Skin Exam Skin: Present warm; Absent rash *Routine Neurological Exam Neurological: Present alert and oriented X3 Assessment and Plan *Assessment and plan (1) Ileus, postoperative: Status: Acute Category: Medical Code(s): K91.89 - Other postprocedural complications and disorders of digestive system; K56.7 - Ileus, unspecified (2) Diarrhea: Status: Acute Category: Medical Code(s): R19.7 - Diarrhea, unspecified (3) S/P exploratory laparotomy: Status: Inactive Category: Surgical Code(s): Z98.890 - Other specified postprocedural states (4) CAD (coronary artery disease), [place] coronary artery: Status: Acute Qualifiers: Associated angina: unspecified whether angina present [place] vs. transplanted heart: [place] heart Qualified Code(s): I25.10 - Atherosclerotic heart disease of [place] coronary artery without angina pectoris Category: Medical Code(s): I25.10 - Atherosclerotic heart disease of [place] coronary artery without angina pectoris (5) History of heart attack: Status: Inactive Category: Medical Code(s): I25.2 - Old myocardial infarction (6) Depression: Status: Acute Qualifiers: Depression Type: unspecified Qualified Code(s): F32.9 - Major depressive disorder, single episode, unspecified Category: Medical Code(s): F32.9 - Major depressive disorder, single episode, unspecified Plan 58-year-old male with PMHx of CAD s/p stent, open appendectomy, and recent bowel resection due to small bowel obstruction. Presented to surgery clinic with persistent nausea and vomiting, dehiscence of proximal portion of the surgical wound, and diarrhea Postop ileus Recent exploratory laparotomy with resection and end-to-end anastomosis Patient is 16 days postop. NG in place Continue NPO continue IV fluids pain control with toradol, dc narcotics continue NPO with NG zofran as needed fevers check blood culture - positive for GRAM NEGATIVE RODS PCR: Escherichia coli and Klebsiella pneumoniae group Resistance Gene Detected continue on zosyn check lactate - WNL check CXR - no consolidation noted Chronic conditions CAD s/p stent, Hx of heart attack depression Holding medications while NPO. Will resume when appropriate Holding Plavix SCD for DVT ppx Full code DC planning- pending surgical plan and clinical improvement, plan to continue NG tube per GS
[2024-07-04] MEDS: [UNRECOGNIZED DRUG - OTHER] IV (17:29)
[2024-07-04] MEDS: AMINO ACID 5% IV (17:29)
[2024-07-04] MEDS: DEX IV (17:29)
[2024-07-04 17:54] LABS: POC Glucose,Bedside 127 (70-110)
--- NOTE | 2024-07-04 18:10 | PC.NURSE ---
NG tube to (R) nare @ 63 cm. NG has been advanced this shift x3 due to tube moving. Charge and Contract Assistant notified of pt's frustrations. Lidocaine was used for comfort. NG secured to nose and gown. Pt educated on importance of NG placement and purpose by this nurse, charge and Contract Assistant. NG is currently to continuous low wall suction with 600 ml output. Gastric fluid is greenish brown. Pt has c/o throat and nasal discomfort but not abdominal. TPN, Lipids and LR are currently infusing at this time. He has ambulated in room and to BR. Tolerated well. Call light within reach.
[2024-07-04 20:00] VITALS: BP 139/72; PULSE 64; RESP 16; TEMP 36.7; O2SAT 95
[2024-07-04] MEDS: MELATONIN 5MG TABLET 10 MG PO (20:25)
[2024-07-04 23:14] LABS: POC Glucose,Bedside 142 (70-110)
[2024-07-05] VITALS (14 sets, daily range): BP systolic 109–146; BP diastolic 58–79; PULSE 49–108; RESP 16–22; TEMP 36.6–37.1; O2SAT 91–98; BMI 29.2; BMI 28.4
[2024-07-05] MEDS: KETOROLAC 30MG/ML VIAL 15 MG IV (02:58)
[2024-07-05] MEDS: PIPERACILLIN/TAZO 3.375 GM in 0.9 % SODIUM CHLORIDE 50 ML IV ×3 (05:12→23:46)
[2024-07-05] MEDS: METOCLOPRAMIDE HCL 10MG/2ML VIAL 5 MG IVP ×3 (05:12→23:46)
[2024-07-05] MEDS: LACTATED RINGERS 1000ML 1,000 ML 125 ML IV (05:12)
--- NOTE | 2024-07-05 05:24 | PC.NURSE ---
Patient has had a great shift. He stated this morning that he was thankful that he actually slept a little. Patient has complained of pain through the shift but not with his stomach it has been with the NG tube in his nose. He states the medication has helped relieve that pain. His dressing on his ABD was changed and packed. Wound looked good with no purulent drainage noted. patient did walk around in the room last night. He also stated he passed gas. Family at bedside.
[2024-07-05 05:26] LABS: POC Glucose,Bedside 126 (70-110)
[2024-07-05 06:04] LABS: Basophils % 0.4 % (0.1-2.0); Eosinophils # 0.1 K/mm3 (0.0-0.4); Eosinophils % 2.2 % (0.1-12.0); Hematocrit 35.7 % (42.0-52.0); Hemoglobin 11.3 g/dL (14.1-18.0); Lymphocytes # 1.1 K/mm3 (0.7-4.5); Mean Corpuscular HGB Conc 31.7 g/dL (31.8-35.4); Mean Corpuscular Hemoglobin 30.1 pg (27.0-31.2); Mean Corpuscular Volume 95.1 fl (80-94); Mean Platelet Volume 8.6 fl (7.4-10.4); Monocytes # 0.3 K/mm3 (0.1-1.0); Monocytes % 6.1 % (1.7-9.3); Neutrophils # 2.9 K/mm3 (1.8-7.8); Neutrophils % 66.3 % (37.0-80.0); Platelet Count 242 K/mm3 (142-424); Red Blood Count 3.76 M/mm3 (4.60-6.20); Red Cell Distribution Width 13.7 % (11.5-17.5); White Blood Count 4.3 K/mm3 (4.8-10.8)
[2024-07-05 06:10] LABS: Alanine Aminotransferase 39 U/L (12-78); Albumin Level 2.8 g/dl (3.5-5.0); Alkaline Phosphatase 42 U/L (38-126); Anion Gap 6.2 mEq/L (5-15); Aspartate Amino Transferase 30 U/L (17-59); Bilirubin,Total 0.4 mg/dl (0.2-1.3); Blood Urea Nitrogen 11 mg/dl (9-20); Calcium 8.3 mg/dl (8.4-10.2); Carbon Dioxide 31 mmol/L (22.0-30.0); Chloride 107 mmol/L (98-107); Creatinine Clearance Estimated 120 mL/min (50-200); Estimated Glomerular Filt Rate 115 ml/min (>60); GFR (African American) 140 ML/MIN (>60); Globulin 2.8 g/dL (1.3-3.2); Glucose 124 mg/dl (74-100); Magnesium 2.3 mg/dl (1.6-2.3); Phosphorous 4.4 mg/dl (2.5-4.5); Potassium 4.2 mmoL/L (3.5-5.1); Sodium 140 mmol/L (136-145); Total Protein,Serum 5.6 g/dl (6.3-8.2)
--- NOTE | 2024-07-05 07:00 | FL_ITS ---
FINAL REPORT CLINICAL HISTORY: abdominal distension FINDINGS: A small bowel series was performed. Sequential images of the abdomen were obtained. Multiple dilated proximal small bowel loops are seen. On the last image obtained at 75 minutes, the contrast is noted in the stomach, proximal and mid small bowel. The colon is not definitely identified. This is of uncertain significance. IMPRESSION: Contrast seen in the distended proximal and mid small bowel loops without opacification of the colon by 75 minutes. This is of uncertain significance and may be due to an ileus or small bowel obstruction. A follow-up study may be helpful. Authenticated and ERN
--- NOTE | 2024-07-05 07:48 | PC.NURSE ---
Addendum entered by Yolanda Evans RN 07/05/24 10:30: ng has been clamped for small bowel follow through and pt started vomiting. pt stated he feels stuffed . notified soniaran: per cm go ahead and connect ng back to lws Addendum entered by Yolanda Evans RN 07/05/24 08:07: notified cm when he came to the floor around 0750 Original Note: pt had a small BM this morning. no c/o pain but slight abd distention visible. 800ml gastric output and pt states he had very little ice chips t/o the night.
--- NOTE | 2024-07-05 08:34 | P.PN_ITS ---
Subjective Narrative: Patient has not had any significant bowel function. The nasogastric tube was placed back to suction yesterday in anticipation of small bowel follow-through today as he had been clinically equivocal for ileus versus obstruction. However, with the nasogastric tube placed back to suction he has had out greater than 1-1/2 L. He feels more distended. Exam Data for Last 24 hours Vital signs and Labs for Last 24 Hours: Temp Pulse Resp BP Pulse Ox O2 Del Method 98.1 F 58 L 18 120/60 97 Room Air 07/05/24 04:00 07/05/24 04:00 07/05/24 04:00 07/05/24 04:00 07/05/24 04:00 07/05/24 06:51 Laboratory Results - last 24 hr 07/04/24 12:39: POC Glucose 132 H 07/04/24 17:06: POC Glucose 127 H 07/04/24 23:06: POC Glucose 142 H 07/05/24 05:14: POC Glucose 126 H 07/05/24 05:51: WBC 4.3 L D, RBC 3.76 L, Hgb 11.3 L, Hct 35.7 L, MCV 95.1 H, MCH 30.1, MCHC 31.7 L, RDW 13.7, Plt Count 242, MPV 8.6, Neut % (Auto) 66.3, Lymph % (Auto) 25.0, [place] % (Auto) 6.1, Eos % (Auto) 2.2, Baso % (Auto) 0.4, Neut # (Auto) 2.9, Lymph # (Auto) 1.1, [place] # (Auto) 0.3, Eos # (Auto) 0.1, Baso # (Auto) 0.0, Sodium 140, Potassium 4.2, Chloride 107, Carbon Dioxide 31 H, Anion Gap 6.2, BUN 11, Creatinine 0.70, Estimated Creat Clear 120, Estimated GFR 115, Est GFR ( Amer) 140, Glucose 124 H, Calcium 8.3 L, Phosphorus 4.4, Magnesium 2.3 D, Total Bilirubin 0.4, AST 30, ALT 39, Alkaline Phosphatase 42, Total Protein 5.6 L, Albumin 2.8 L, Globulin 2.8, Albumin/Globulin Ratio 1.0 L I & O for Last 24 hours: Intake & Output 07/02/24 07/03/24 07/04/24 07/05/24 11:59 11:59 11:59 11:59 Intake Total 1717 / 1717 2511 / 2511 3749 / 3749 0 / 0 Output Total 1450 / 1450 2175 / 2175 1125 / 1325 4450 / 4450 Balance 267 / 267 336 / 336 2624 / 2424 -4450 / -4450 Weight 164 lb 4.721 oz 164 lb 4.721 oz 164 lb 4.721 oz 186 lb 4.8 oz Microbiology Reports for the Last 24 Hours: Microbiology 07/02/24 17:11 Blood Blood Culture - Preliminary 07/02/24 17:00 Blood Blood Culture - Preliminary *Routine Abdominal Exam Abdominal: Present distended Progress Note: A&P Assessment and plan (1) Ileus, postoperative: Status: Acute (2) Diarrhea: Status: Acute (3) S/P exploratory laparotomy: Status: Inactive (4) CAD (coronary artery disease), [place] coronary artery: Status: Acute (5) History of heart attack: Status: Inactive (6) Depression: Status: Acute Assessment and Plan Assessment and Plan for All Diagnoses:: Highly concerning for progressive obstruction. I will go ahead and see how he does with small bowel follow-through. Very likely will need operative intervention.
--- NOTE | 2024-07-05 08:35 | P.PN_ITS ---
Subjective *Date: 07/05/24 *Time: 08:35 Medical Exam Vital signs and Labs for Last 24 Hours: Vital Signs Temp Pulse Resp BP Pulse Ox O2 Del Method 07/05/24 06:51 Room Air 07/05/24 05:00 Room Air 07/05/24 04:00 98.1 F 58 L 18 120/60 97 Room Air 07/05/24 03:00 Room Air 07/05/24 01:00 Room Air 07/05/24 00:00 98.7 F 57 L 16 130/58 L 96 Room Air 07/04/24 23:00 Room Air 07/04/24 21:00 Room Air 07/04/24 20:00 98.1 F 64 16 139/72 95 Room Air 07/04/24 20:00 Room Air 07/04/24 18:34 Room Air 07/04/24 17:00 Room Air 07/04/24 16:00 98.7 F 61 18 127/69 96 Room Air 07/04/24 15:00 Room Air 07/04/24 13:00 Room Air 07/04/24 12:00 98.3 F 53 L 18 130/68 95 Room Air 07/04/24 11:00 Room Air 07/04/24 09:00 Room Air Intake and Output 07/04/24 07/05/24 07/05/24 23:59 07:59 15:59 Intake Total 0 / 2114 Output Total 2550 / 4225 1150 / 1150 Balance -2550 / -2111 -1150 / -1150 Intake: Intake, Oral Amount 0 / 60 Intake, Oral Supplement Amount 0 / 0 Output: Output, Urine Amount 1050 / 2725 350 / 350 Output, Gastric Drainage Amount 1500 / 1500 800 / 800 Right Nare 1500 / 1500 800 / 800 Other: Number of Voids 0 Number of Unmeasured Voids 1 Weight 84.504 kg Patient Weight 07/05/24 23:59 Weight 84.504 kg Laboratory Results - last 24 hr 07/04/24 12:39: POC Glucose 132 H 07/04/24 17:06: POC Glucose 127 H 07/04/24 23:06: POC Glucose 142 H 07/05/24 05:14: POC Glucose 126 H 07/05/24 05:51: WBC 4.3 L D, RBC 3.76 L, Hgb 11.3 L, Hct 35.7 L, MCV 95.1 H, MCH 30.1, MCHC 31.7 L, RDW 13.7, Plt Count 242, MPV 8.6, Neut % (Auto) 66.3, Lymph % (Auto) 25.0, [place] % (Auto) 6.1, Eos % (Auto) 2.2, Baso % (Auto) 0.4, Neut # (Au to) 2.9, Lymph # (Auto) 1.1, [place] # (Auto) 0.3, Eos # (Auto) 0.1, Baso # (Auto) 0.0, Sodium 140, Potassium 4.2, Chloride 107, Carbon Dioxide 31 H, Anion Gap 6.2, BUN 11, Creatinine 0.70, Estimated Creat Clear 120, Estimated GFR 115, Est GFR ( Amer) 140, Glucose 124 H, Calcium 8.3 L, Phosphorus 4.4, Magnesium 2.3 D, Total Bilirubin 0.4, AST 30, ALT 39, Alkaline Phosphatase 42, Total Protein 5.6 L, Albumin 2.8 L, Globulin 2.8, Albumin/Globulin Ratio 1.0 L I & O for Labs for Last 24 Hours: Intake & Output 07/02/24 07/03/24 07/04/24 07/05/24 23:59 23:59 23:59 23:59 Intake Total 797 / 797 4066 / 4126 2113 / 2114 Output Total 1250 / 1250 1325 / 1500 4225 / 4225 1150 / 1150 Balance -453 / -453 2741 / 2626 -2111 / -2111 -1150 / -1150 Weight 74.523 kg 74.523 kg 74.523 kg 84.504 kg Microbiology Reports for the Last 24 Hours: Microbiology 07/02/24 17:11 Blood Blood Culture - Preliminary 07/02/24 17:00 Blood Blood Culture - Preliminary The patient's infection will respond to the chosen ABx?: Yes (PRELIM BLOOD CX = E. COLI/K. PNEUNOMIAE, SENSITIVITY PENDING, AFEBRILE) Is the patient receiving the right drug, dose, and route?: Yes Could a more targeted ABx be ordered?: No
[2024-07-05] MEDS: SIMETHICONE 40MG/0.6ML DROPS; 30ML BOTTLE 2.4 ML PO ×3 (09:24→23:52)
[2024-07-05] MEDS: AA 5 %/CALCIUM/LYTES/DEXT 20 % 1,000 ML 65 ML IV (09:24)
[2024-07-05] MEDS: ONDANSETRON 4MG/2ML VIAL 4 MG IV (09:38)
[2024-07-05] MEDS: DIATRIZOATE MEGLUMINE(GASTROGRAFIN) 66%-10% 120ML 240 ML PO (11:23)
[2024-07-05 11:30] LABS: POC Glucose,Bedside 139 (70-110)
--- NOTE | 2024-07-05 12:09 | DIET.NUTRFU ---
TPN was started on 07/02, was unable to initiate oral diet. He is still NPO, plans to go back for sx today post small bowel follow-through this morning. Nutritional needs are 1900kcal and 75-85gm protein, he is protein depleted at risk for malnutrition secondary to multiple hospital visits with NPO status. Labs reviewed on 07/04, glucose elevated avg around 140, albumin 3.1L, triglycerides were pulled on 07/03 @59, weekly lab. TPN is provdiing 1653kcal (87%), 80gm protein (100%). Fluid ouput yesterday was 4225 with 1500 via NG and 2725 of urine. LR's also running along with TPN to meet hydration needs of 1900-2200ml/day. Will continue to monitor labs and nursing assessment for hydration status. He was noted to have bowel movement on 07/03 and 07/04, upper GI/small bowel X-ray still showing good amount of bowel in intestines. Will continue to follow post sx
[2024-07-05] MEDS: LACTATED RINGERS 1000ML 1,000 ML 25 ML IV (14:25)
--- NOTE | 2024-07-05 14:31 | PC.NURSE ---
pt off floor for surgery
--- NOTE | 2024-07-05 15:11 | EXP.ANES.CKL ---
[facility] Disclaimer: The information contained in this section may have been updated after the patient was seen, as this information can be updated by other users. Medical History (Updated 06/29/24 @ 17:54 by Rashaad Choi MD) Bowel obstruction History of heart attack Heart attack Depression Erosive osteoarthritis of multiple sites Surgical History S/P exploratory laparotomy Hx of appendectomy Family History Other Diabetes Social History (Updated 06/29/24 @ 14:21 by Aruna Oliver RN) Smoking Status: Former smoker alcohol intake: current alcohol intake frequency: holidays/special occasions only substance use type: denies use current occupational status: employed Travel in the last 8 weeks: None household members: none housing: apartment [facility] Anesthesia Checklist Patient Identification Patient Identification: Arm Band Structural Data Admitted From: Home Planned Operative Procedure/s: Exploratory Laparotomy Consent for Planned Operative Procedure(s) Verified: Yes Verified Documents: Surgical Consent and History and Physical NPO Status Verified Time NPO: 00:00 Additional verifications Anesthesia Reactions: No Airway Assessment Mallampati Score:: Class II C-Spine Mobility Assessed: Yes TMJ Mobility Assessed: Yes Dentition: Edentulous Neurological Assessment Level of Consciousness: Awake, Alert and Appropriate Anesthesia Plan Anesthesia Risk discussed: Yes Anesthesia Plan: Verified ASA Class: III Anesthesia Type: General
[2024-07-05] MEDS: AMPICILLIN SODIUM/SULBACTAM 3 GM in 0.9 % SODIUM CHLORIDE 100 ML IV ×2 (15:40→20:58)
--- NOTE | 2024-07-05 16:40 | EXP.PN ---
Subjective *Date: 07/05/24 *Time: 16:40 Interval history: seen at bedside, no complains of abdominal pain, but has distension, has NG tube, family at bedside, denied Vomiting, has NG tube, fevers improved Exam Data for Last 24 hours Vital signs and Labs for Last 24 Hours: Temp Pulse Resp BP Pulse Ox O2 Del Method 97.9 F 58 L 18 116/61 94 L Room Air 07/05/24 12:00 07/05/24 12:00 07/05/24 12:00 07/05/24 12:00 07/05/24 12:00 07/05/24 13:00 Laboratory Results - last 24 hr 07/04/24 17:06: POC Glucose 127 H 07/04/24 23:06: POC Glucose 142 H 07/05/24 05:14: POC Glucose 126 H 07/05/24 05:51: WBC 4.3 L D, RBC 3.76 L, Hgb 11.3 L, Hct 35.7 L, MCV 95.1 H, MCH 30.1, MCHC 31.7 L, RDW 13.7, Plt Count 242, MPV 8.6, Neut % (Auto) 66.3, Lymph % (Auto) 25.0, [place] % (Auto) 6.1, Eos % (Auto) 2.2, Baso % (Auto) 0.4, Neut # (Auto) 2.9, Lymph # (Auto) 1.1, [place] # (Auto) 0.3, Eos # (Auto) 0.1, Baso # (Auto) 0.0, Sodium 140, Potassium 4.2, Chloride 107, Carbon Dioxide 31 H, Anion Gap 6.2, BUN 11, Creatinine 0.70, Estimated Creat Clear 120, Estimated GFR 115, Est GFR ( Amer) 140, Glucose 124 H, Calcium 8.3 L, Phosphorus 4.4, Magnesium 2.3 D, Total Bilirubin 0.4, AST 30, ALT 39, Alkaline Phosphatase 42, Total Protein 5.6 L, Albumin 2.8 L, Globulin 2.8, Albumin/Globulin Ratio 1.0 L 07/05/24 11:17: POC Glucose 139 H I & O for Last 24 hours: Intake & Output 07/02/24 07/03/24 07/04/24 07/05/24 23:59 23:59 23:59 23:59 Intake Total 797 / 797 4066 / 4126 2113 / 2113 Output Total 1250 / 1250 1325 / 1500 4225 / 4225 1300 / 1300 Balance -453 / -453 2741 / 2626 -2111 / -211 -1300 / -1300 Weight 74.523 kg 74.523 kg 74.523 kg 84.504 kg Microbiology Reports for the Last 24 Hours: Microbiology 07/02/24 17:00 Blood Blood Culture - Preliminary Gram Negative Rods Gram Negative Rods#2 07/02/24 17:11 Blood Blood Culture - Preliminary Gram Negative Rods Gram Negative Rods#2 Constitutional Constitutional: no acute distress *Routine HEENT Exam Head: Present normocephalic Eye: Present EOMI and PERRL ENT: Present mucous membranes moist *Routine Neck Exam Neck: Present supple; Absent lymphadenopathy *Routine Respiratory Exam Respiratory: Present CTA bilaterally *Routine Cardiovascular Exam Cardiovascular: Present RRR *Routine Abdominal Exam Abdominal: Present soft, normoactive bowel sounds and distended; Absent tenderness *Routine Extremities Exam Extremities: Absent cyanosis, clubbing or edema *Routine Skin Exam Skin: Present warm; Absent rash *Routine Neurological Exam Neurological: Present alert and oriented X3 Assessment and Plan *Assessment and plan (1) Ileus, postoperative: Status: Acute Category: Medical Code(s): K91.89 - Other postprocedural complications and disorders of digestive system; K56.7 - Ileus, unspecified (2) Diarrhea: Status: Acute Category: Medical Code(s): R19.7 - Diarrhea, unspecified (3) S/P exploratory laparotomy: Status: Inactive Category: Surgical Code(s): Z98.890 - Other specified postprocedural states (4) CAD (coronary artery disease), [place] coronary artery: Status: Acute Qualifiers: [place] vs. transplanted heart: [place] heart Associated angina: unspecified whether angina present Qualified Code(s): I25.10 - Atherosclerotic heart disease of [place] coronary artery without angina pectoris Category: Medical Code(s): I25.10 - Atherosclerotic heart disease of [place] coronary artery without angina pectoris (5) History of heart attack: Status: Inactive Category: Medical Code(s): I25.2 - Old myocardial infarction (6) Depression: Status: Acute Qualifiers: Depression Type: unspecified Qualified Code(s): F32.9 - Major depressive disorder, single episode, unspecified Category: Medical Code(s): F32.9 - Major depressive disorder, single episode, unspecified Plan 58-year-old male with PMHx of CAD s/p stent, open appendectomy, and recent bowel resection due to small bowel obstruction. Presented to surgery clinic with persistent nausea and vomiting, dehiscence of proximal portion of the surgical wound, and diarrhea Postop ileus Recent exploratory laparotomy with resection and end-to-end anastomosis Patient is 17 days postop. plans for Abdominal surgery again today due to concern for persistent obstruction, discussed with patient and family they do agree with plan from surgery team NG in place Continue NPO continue IV fluids pain control with toradol, dc narcotics continue NPO with NG zofran as needed fevers check blood culture - positive for GRAM NEGATIVE RODS PCR: Escherichia coli and Klebsiella pneumoniae group Resistance Gene Detected continue on zosyn check lactate - WNL check CXR - no consolidation noted Chronic conditions CAD s/p stent, Hx of heart attack depression Holding medications while NPO. Will resume when appropriate Holding Plavix SCD for DVT ppx Full code DC planning- pending surgical plan and clinical improvement, plan for OR today
--- NOTE | 2024-07-05 19:50 | SUR.OPER ---
I updated the at 1932 with where we were at in the procedure and she stated she had no questions and thanks for updating her.
[2024-07-05] MEDS: METHYLENE BLUE 0.5% 10ML AMPULE 50 MG IV (20:34)
--- NOTE | 2024-07-05 22:03 | EXP.OP.NOTE ---
Date of procedure: 07/05/24 Pre-op Diagnosis:: Complete small bowel obstruction Post-op Diagnosis:: Same Procedure performed:: Exploratory laparotomy, extensive lysis of adhesions, small bowel resection with primary anastomosis. Surgeon:: Jose Antonio Nation MD SENIOR HEALTH CONSULTANT:: Bassam Huertas Anesthesia: GETA Estimated blood loss (mL): 150 Clinical Note:: Patient is a 58-year-old male who had previously undergone abdominal surgery as an infant. He also had an appendectomy done, open, decades ago. He had a previous episode of small bowel obstruction managed nonoperatively at another facility. He had presented to [facility] on 06/17/2024 with several days of obstructive symptoms. Upon presentation at that time he had findings clinically consistent with complete small bowel obstruction and peritoneal findings. He was taken emergently to the operating room at which time he was found to have complete bowel obstruction in the distal jejunum with extremely dense, extensive, matted conglomeration of adhesions with the distal small bowel completely decompressed. He underwent resection with primary anastomosis. Patient was ultimately discharged on 06/24/2024 tolerating full liquid diet at that time. However he had developed some recurrent symptoms. He also had spontaneous drainage of a seroma from the upper aspect of his laparotomy incision which prompted visit to the emergency department on 06/27/2024. Following day he was having some problems with abdominal pain, poor oral intake, with nausea and presented to his primary care provider and then was sent to the emergency department once again where he was able to be managed as an outpatient. He was seen for surgical follow-up the following day on 06/29/2024 and was quite ill with the inability to tolerate oral intake. He is admitted for inpatient management for possible partial obstruction versus ileus. He was managed nonoperatively for some time with nasogastric tube and bowel rest with IV fluids. He had transiently shown some improvement clinically by 07/03/2024 although radiographs continue to show findings consistent with obstruction. Given his clinical improvement with lack of radiographic improvement plan was made to proceed with small bowel follow-through to differentiate ileus versus small bowel obstruction. However, on the morning of 07/05/2024 he had shown significant increase in his nasogastric output with greater than 1500 cc output over 24 hours with increasing distention and discomfort. Attempt was made to proceed with small bowel follow-through and after he was administered Gastroview he had significant abdominal distention with discomfort and vomiting. After a short series of radiographs failing to show progression of contrast and due to the patient's discomfort the small bowel follow-through was terminated and plan was made to proceed with laparotomy due to findings consistent with complete small bowel obstruction. . Operative findings:: Patient had complete small bowel obstruction mid small bowel seemingly at prior anastomosis. Small bowel was distended proximally and decompressed distally. There was an incredibly intense inflammatory process around the small bowel anastomosis creating almost a masslike effect resulting in obstruction. The anastomosis was densely adherent in the right lower quadrant somewhat in the retroperitoneum. . Operative note:: Patient was taken to the operating room. He was given preoperative intravenous antibiotics. In the operating room he was placed in a supine position. General anesthesia was induced. Eagle catheter was placed for bladder decompression. Abdomen was prepped and draped in the standard surgical fashion. Incision was made in previous laparotomy scar. Blunt dissection was carried down through subcutaneous tissues to the fascial suture which was incised. Fascial suture was removed. Peritoneal cavity was entered. There is significant amount of inflammatory adhesions. Prolonged careful dissection was carried out. There was evidence of significant distention of the small bowel proximal and mid small bowel. Previous anastomosis was palpated. It was densely adherent into the right lower quadrant somewhat into the retroperitoneum. Distal small bowel appeared healthy and decompressed. Proximal small bowel was markedly distended and fluid-filled and friable. Extremely prolonged dissection was carried out to free the anastomosis from the right lower quadrant retroperitoneum area. This was done using blunt finger fracture dissection technique as well as some use of Metzenbaum dissection and limited use of electrocautery. Ultimately it was freed. The ear were significant adhesions in the proximal distended small bowel. These were taken down as required to allow for an anastomosis. There were multiple serosal tears to the small bowel and there was some unavoidable leakage of thin succus. Multiple sutures consisting of 3-0 Nurolon and 2-0 Vicryl were placed temporarily for control of the unavoidable bowel leakage. Decision was made for resection proximal and distal to the anastomosis. The bowel was divided with a MILENA 75 stapling device. The small bowel mesentery was incised with the Enseal device. The 2 limbs of bowel were partially reapproximated with 3-0 Surgilon. Enterotomy was created and the proximal limb was suctioned free of succus. [id number] anastomosis was created with MILENA 75 stapling device. The common enterotomy was closed with a TX 60B type stapling device. 3-0 Surgilon seromuscular sutures were placed at the confluence of staple lines and several were placed at the staple line angle and distal to this to prevent the anastomosis from kinking. Mesenteric defect was closed with several interrupted 2-0 Vicryl sutures. Right lower quadrant was inspected. There appeared to be some small serosal tears on the cecum which were closed with several interrupted 3-0 Surgilon. The wound was then thoroughly irrigated. Inspection in the right lower quadrant revealed dissection of the inflammatory adhesive obstructing masslike area into the retroperitoneum. There was a concern for possible right ureteral injury. Anatomy was difficult to determine but there was a structure that could possibly be consistent with the distal right ureter near the bladder. Attempt was made intraoperatively to fill the bladder by nursing staff to check for retrograde flow but this was unsuccessful. Anesthesia then administered methylene blue intravenously and prolonged observation was carried out to check for ureteral leak. The proximal ureter was able to be ultimately identified but it was unclear if there was definitively distal ureteral injury. There was never noted to be any visible urine or methylene blue fluid. What was thought to be the possible distal ureter near the bladder was tagged with a 3-0 Prolene in the event that additional investigation reveals ureteral injury. Wound was thoroughly irrigated with copious amounts of warm saline. There is appeared to be good hemostasis. Nasogastric tube was confirmed to be in a good position. Enteric contents returned to normal position. Fascia was closed with a couple of interrupted #2 Novafil. Subcutaneous tissues were irrigated. Skin was closed with combination of martina and a few interrupted 2-0 nylon vertical mattress sutures. Clean dry sterile dressing was applied. Please note the procedure duration was approximately 6-1/2 hours. Plan will be for follow-up ureteral imaging with IVP or retrograde pyelogram and urologic involvement if necessary. . Condition: stable Disposition: PACU Complications:: None immediately apparent
--- NOTE | 2024-07-05 22:10 | EXP.ANES.I ---
[facility] Anesthesia Record Part I Anesthesia Record I Intake, IV Amount: 3,700 Hydration: Adequate Estimated blood loss (mL): 150 Urine output (mL): 600 Blood Products used (#): none Blood Pressure: 142/76 SaO2: 95 Pulse Rate: 105 Airway Patency: Patent Respiratory Rate: 16 Temperature: 98.5 F Patient is:: Drowsy and Stable Stable to PACU at:: 22:05
--- NOTE | 2024-07-05 22:47 | PC.NURSE ---
patient arrived back to floor from surgery via stretcher @22:44
[2024-07-05] MEDS: MORPHINE 4MG/ML SYRINGE 4 MG IV (23:23)
[2024-07-05] MEDS: FAT EMULSIONS 250 ML 60 ML IV (23:46)
[2024-07-05 23:48] LABS: Microscopic,Cath URINE MICROSCOPIC (MICROSCOPIC)
[2024-07-05 23:53] LABS: Appearance,Urine/Cath CLEAR (Clear); Bilirubin,Cath Negative (Negative); Blood, Urine/Cath TRACE-I (Negative); Color,Urine/Cath YELLOW (Yellow); Glucose,Urine/Cath (UA) Negative (Negative); Ketones,Urine/Cath Negative (Negative); Leukocyte Esterase,Cath Negative (Negative); Nitrate,Cath Negative (Negative); PH,Urine/Cath 8.5 (5.0-8.5); Protein,Urine/Cath Negative (Negative); Specific Gravity, Urine/Cath 1.015 (1.005-1.030); Urobilinogen,Cath 0.2 EU/dl (0.2)
[2024-07-06] VITALS (21 sets, daily range): BP systolic 97–144; BP diastolic 41–79; PULSE 81–107; RESP 12–20; TEMP 36.4–36.9; O2SAT 2–97; BMI 28.4
[2024-07-06 00:03] LABS: WBC,Urine/Cath Occasional #/hpf (0-3)
[2024-07-06 00:04] LABS: Amorphous Sediment,Ur/Cath Trace /lpf; Bacteria,Urine/Cath TRACE /lpf
[2024-07-06] MEDS: LACTATED RINGERS 1000ML 1,000 ML 125 ML IV ×2 (00:06→09:00)
[2024-07-06] MEDS: HYDROMORPHONE 2MG/ML SYRINGE 1 MG IV ×9 (01:05→23:29)
[2024-07-06] MEDS: AA 5 %/CALCIUM/LYTES/DEXT 20 % 1,000 ML 65 ML IV (04:09)
[2024-07-06] MEDS: PIPERACILLIN/TAZO 3.375 GM in 0.9 % SODIUM CHLORIDE 50 ML IV (04:15)
[2024-07-06] MEDS: METOCLOPRAMIDE HCL 10MG/2ML VIAL 5 MG IVP ×4 (05:41→23:29)
--- NOTE | 2024-07-06 06:30 | PC.NURSE ---
Pt a/o x4. Pt has complained of abdominal pain multiple times since arriving to floor from OR. Pt has received PRN medication per MAR. NG tube to right nare @ 63cm draining dark green bile to low wall suction. Eagle in place draining bluish green urine (methylene blue given in OR). Midline incision to abdomen, dsg CDI. Mouth swabs provided to patient. Encouraged patient to reposition in bed through out shift. at bedside. Call light within reach.
[2024-07-06 07:16] LABS: Anion Gap 10.2 mEq/L (5-15); Blood Urea Nitrogen 18 mg/dl (9-20); Calcium 8.2 mg/dl (8.4-10.2); Carbon Dioxide 28 mmol/L (22.0-30.0); Chloride 105 mmol/L (98-107); Creatinine Clearance Estimated 116 mL/min (50-200); Estimated Glomerular Filt Rate 99 ml/min (>60); GFR (African American) 120 ML/MIN (>60); Glucose 214 mg/dl (74-100); Potassium 4.2 mmoL/L (3.5-5.1); Sodium 139 mmol/L (136-145)
--- NOTE | 2024-07-06 07:22 | P.PN_ITS ---
Subjective Narrative: Other than patient having incisional pain no major complaints. Exam Data for Last 24 hours Vital signs and Labs for Last 24 Hours: Temp Pulse Resp BP Pulse Ox O2 Del Method O2 Flow Rate 98.5 F 85 18 104/59 L 95 Nasal Cannula 2 07/06/24 04:35 07/06/24 06:00 07/06/24 06:00 07/06/24 06:00 07/06/24 06:00 07/06/24 06:54 07/06/24 06:54 Laboratory Results - last 24 hr 07/05/24 11:17: POC Glucose 139 H 07/05/24 : Urine Color Yellow, Urine Appearance Clear, Urine pH 8.5, Ur Specific [place] 1.015, Urine Protein Negative, Urine Glucose (UA) Negative, Urine Ketones Negative, Urine Blood Trace-i, Urine Nitrate Negative, Urine Bilirubin Negative, Urine Urobilinogen 0.2, Ur Leukocyte Esterase Negative, Urine RBC 3-5, Urine WBC Occasional, Ur Squamous Epith Cells 5-10, Urine Bacteria Trace 07/06/24 06:42: Sodium 139, Potassium 4.2, Chloride 105, Carbon Dioxide 28, Anio n Gap 10.2, BUN 18 D, Creatinine 0.80, Estimated Creat Clear 116, Estimated GFR 99, Est GFR ( Amer) 120, Glucose 214 H, Calcium 8.2 L I & O for Last 24 hours: Intake & Output 07/03/24 07/04/24 07/05/24 07/06/24 11:59 11:59 11:59 11:59 Intake Total 2511 / 2511 3749 / 3749 0 / 0 3750 / 3750 Output Total 2175 / 2175 1125 / 1325 4450 / 4600 150 / 150 Balance 336 / 336 2624 / 2424 -4450 / -4600 3600 / 3600 Weight 164 lb 4.721 oz 164 lb 4.721 oz 186 lb 4.8 oz 181 lb 3.2 oz Microbiology Reports for the Last 24 Hours: Microbiology 07/02/24 17:00 Blood Blood Culture - Preliminary Gram Negative Rods Gram Negative Rods#2 07/02/24 17:11 Blood Blood Culture - Preliminary Gram Negative Rods Gram Negative Rods#2 Constitutional Constitutional: no acute distress *Routine Abdominal Exam Comments: Dressing dry Progress Note: A&P Assessment and plan (1) Ileus, postoperative: Status: Acute (2) Diarrhea: Status: Acute (3) S/P exploratory laparotomy: Status: Inactive Assessment and plan: Electrolytes and renal function within reasonable limits. CBC pending. Continue NG tube to suction and Eagle catheter for now. I will see about retrograde pyelogram through radiology to evaluate right ureter. (4) CAD (coronary artery disease), [place] coronary artery: Status: Acute (5) History of heart attack: Status: Inactive (6) Depression: Status: Acute
--- NOTE | 2024-07-06 07:23 | EXP.ANES.II ---
[facility] Anesthesia Record Part II Anesthesia Record Part II Discharge Time: 22:35 Destination: Medical Surgical Department PACU nurse assessment reviewed?: Yes Patient Condition:: Good Anesthesia Complications:: None Swallowing reflex intact?: Yes Airway Patency: Patent Cyanosis?: No Blood Pressure: 144/79 SaO2: 95 Respiratory Rate: 17 Pulse Rate: 107 Temperature: 97.8 F Mental Status: Alert & Oriented Pain level:: 0 Nausea and/or vomitting:: None Intake, IV Amount: 0 Hydration: Adequate
[2024-07-06 07:34] LABS: Basophils % 0.2 % (0.1-2.0); Eosinophils % 0.1 % (0.1-12.0); Hematocrit 38.1 % (42.0-52.0); Lymphocytes # 0.8 K/mm3 (0.7-4.5); Mean Corpuscular HGB Conc 31.5 g/dL (31.8-35.4); Mean Corpuscular Hemoglobin 30.6 pg (27.0-31.2); Mean Corpuscular Volume 97.3 fl (80-94); Mean Platelet Volume 9.1 fl (7.4-10.4); Monocytes # 0.5 K/mm3 (0.1-1.0); Monocytes % 3.1 % (1.7-9.3); Neutrophils % 91.7 % (37.0-80.0); Platelet Count 286 K/mm3 (142-424); Red Blood Count 3.91 M/mm3 (4.60-6.20); Red Cell Distribution Width 13.8 % (11.5-17.5); White Blood Count 16.4 K/mm3 (4.8-10.8)
[2024-07-06 08:00] LABS: MANUAL DIFFERENTIAL MANUAL DIFFERENTIAL (MANUAL DIFF)
[2024-07-06 08:29] LABS: Magnesium 1.9 mg/dl (1.6-2.3)
[2024-07-06] MEDS: SIMETHICONE 40MG/0.6ML DROPS; 30ML BOTTLE 2.4 ML PO ×3 (09:00→20:20)
--- NOTE | 2024-07-06 09:17 | CT_ITS ---
FINAL REPORT TECHNIQUE: Axial CT images of the abdomen and pelvis were obtained before and after the administration of IV contrast. Oral contrast was administered.This study was performed with techniques to keep radiation doses as low as reasonably achievable (ALARA). Individualized dose reduction techniques using automated exposure control or adjustment of mA and/or kV according to the patient''s size were employed. CLINICAL HISTORY: EVAL RIGHT URETER COMPARISON: 06/28/2024 FINDINGS: Abdomen: There is bilateral lower lobe atelectasis. There is a small amount of pneumoperitoneum consistent with recent surgery. An NG tube is present. The heart is normal in size. The liver has an unremarkable appearance, without evidence of mass or biliary duct dilatation. . The spleen is unremarkable. No adrenal masses present. The pancreas has an unremarkable appearance. The renal collecting systems and ureters are partially opacified. There is no evidence of contrast extravasation from the ureters. Stranding adjacent to the mid right ureter in the upper pelvis may represent hemorrhage or inflammation. There is no hydronephrosis. There is a less than 1 cm left renal cyst. The aorta is normal in caliber. There are moderate vascular calcifications. There is persistent moderate proximal small bowel dilatation to the right pelvis which may represent postoperative ileus versus partial small bowel obstruction. Oral contrast extends to the colon. There is widespread small bowel wall thickening which is likely inflammatory. There is a small amount of ascites. Pelvis: The appendix is not well visualized. A Eagle catheter is present. There is no evidence of mass or adenopathy. IMPRESSION: No evidence of ureteral contrast extravasation to suggest injury. Stranding adjacent to the mid right ureter is favored to be inflammation or hemorrhage. Pneumoperitoneum consistent with recent surgery. Worsening atelectasis. Persistent proximal small bowel dilatation, ileus versus partial small bowel obstruction. Widespread small bowel wall thickening, likely inflammatory. Reviewed, Interpreted and Dictated by Jose Antonio Mg III, MD Transcribed by Sarika Mahajan Authenticated and . [facility]
[2024-07-06 09:28] LABS: Eosinophils % 1 % (0-3); Lymphocytes % 12 % (10-50); Monocytes % 1 % (2-9); Neutrophils % 86 % (42-76); Platelet Estimate Normal; RBC Morphology Normal; Total Cells Counted 100
[2024-07-06] MEDS: MAGNESIUM SULFATE IN WATER 2 GM/50 ML PIGGYBACK IV (09:49)
[2024-07-06] MEDS: SODIUM CHLORIDE 0.9% 10ML SYR (RAD ONLY) 10 ML IV (10:12)
[2024-07-06] MEDS: IOPAMIDOL-370 (76%);100ML BOTTLE 75 ML IV (10:12)
[2024-07-06] MEDS: KETOROLAC 30MG/ML VIAL 15 MG IV ×3 (10:39→21:01)
[2024-07-06 12:36] LABS: POC Glucose,Bedside 169 (70-110)
--- NOTE | 2024-07-06 12:43 | EXP.ACUTE.PN ---
Subjective *Date: 07/06/24 *Time: 16:09 Interval history: Patient continues to complain of abdominal pain today. No nausea or vomiting. Bilious drainage in NG. No fever overnight. Blood cultures returned positive. Continue NPO. Medical Exam Vital signs and Labs for Last 24 Hours: Vital Signs Temp Pulse Pulse Resp BP BP Pulse Ox 07/06/24 12:00 97.5 F L 87 18 105/63 L 94 L 07/06/24 11:00 07/06/24 10:00 97.5 F L 85 20 105/61 L 94 L 07/06/24 09:00 07/06/24 08:00 84 18 106/64 L 95 07/06/24 08:00 90 07/06/24 08:00 07/06/24 08:00 98.5 F 07/06/24 07:30 17 07/06/24 06:54 07/06/24 06:00 85 18 104/59 L 95 07/06/24 05:35 89 20 102/59 L 95 07/06/24 04:59 07/06/24 04:35 98.5 F 89 17 107/61 L 97 07/06/24 04:00 90 07/06/24 03:35 92 H 16 97/58 L 93 L 07/06/24 02:40 07/06/24 02:35 91 H 13 108/66 L 90 L 07/06/24 01:35 92 H 12 102/62 L 91 L 07/06/24 01:05 92 H 13 116/69 93 L 07/06/24 01:05 07/06/24 00:35 97.8 F 93 H 15 113/69 92 L 07/06/24 00:05 98 H 14 121/69 93 L 07/06/24 00:00 106 H 07/05/24 23:35 100 H 16 109/66 L 91 L 07/05/24 23:20 108 H 18 119/73 92 L 07/05/24 23:05 106 H 22 127/77 92 L 07/05/24 23:00 07/05/24 23:00 07/05/24 22:56 97.8 F 108 H 20 131/79 92 L 07/05/24 22:50 86 18 131/79 94 L 07/05/24 22:35 107 H 17 144/79 H 95 07/05/24 22:25 107 H 17 144/79 H 95 07/05/24 22:15 106 H 17 142/76 H 95 07/05/24 22:13 98.5 F 105 H 16 142/76 H 07/05/24 22:05 98.5 F 105 H 17 146/76 H 95 07/05/24 13:00 O2 Del Method O2 Flow Rate 07/06/24 12:00 Nasal Cannula 2 07/06/24 11:00 Nasal Cannula 2 07/06/24 10:00 Nasal Cannula 2 07/06/24 09:00 Nasal Cannula 2 07/06/24 08:00 Nasal Cannula 2 07/06/24 08:00 07/06/24 08:00 Nasal Cannula 2 07/06/24 08:00 07/06/24 07:30 07/06/24 06:54 Nasal Cannula 2 07/06/24 06:00 Nasal Cannula 2 07/06/24 05:35 Nasal Cannula 2 07/06/24 04:59 Nasal Cannula 2 07/06/24 04:35 Nasal Cannula 2 07/06/24 04:00 07/06/24 03:35 Nasal Cannula 2 07/06/24 02:40 Room Air 07/06/24 02:35 Room Air 07/06/24 01:35 Room Air 07/06/24 01:05 Room Air 07/06/24 01:05 Room Air 07/06/24 00:35 Room Air 07/06/24 00:05 Room Air 07/06/24 00:00 07/05/24 23:35 Room Air 07/05/24 23:20 Room Air 07/05/24 23:05 Room Air 07/05/24 23:00 Room Air 07/05/24 23:00 Room Air 07/05/24 22:56 Room Air 07/05/24 22:50 Room Air 07/05/24 22:35 Room Air 07/05/24 22:25 Room Air 07/05/24 22:15 Room Air 07/05/24 22:13 07/05/24 22:05 Room Air 07/05/24 13:00 Room Air Intake and Output 07/05/24 07/06/24 07/06/24 23:59 07:59 15:59 Intake Total 3700 / 3750 50 / 50 Output Total 0 / 0 Balance 3700 / 2450 50 / 50 0 / 50 Intake: Intake, Total IV Amount 3700 / 3750 50 / 50 Piperacillin/Tazo 3.375 gm In 0 50 / 50 .9 % Sodium Chloride 50 ml @ 100 mls/hr IV Q6H [facility] Rx#: [id number] Output: Output, Urine Amount 0 / 0 Other: Number of Voids 0 Weight 82.191 kg 82.191 kg Patient Weight 07/06/24 23:59 Weight 82.191 kg Laboratory Results - last 24 hr 07/05/24 : Urine Color Yellow, Urine Appearance Clear, Urine pH 8.5, Ur Specific [place] 1.015, Urine Protein Negative, Urine Glucose (UA) Negative, Urine Ketones Negative, Urine Blood Trace-i, Urine Nitrate Negative, Urine Bilirubin Negative, Urine Urobilinogen 0.2, Ur Leukocyte Esterase Negative, Urine RBC 3-5, Urine WBC Occasional, Ur Squamous Epith Cells 5-10, Urine Bacteria Trace 07/06/24 06:42: WBC 16.4 H D, RBC 3.91 L, Hgb 12.0 L, Hct 38.1 L, MCV 97.3 H, MCH 30.6, MCHC 31.5 L, RDW 13.8, Plt Count 286, MPV 9.1, Neut % (Auto) 91.7 H, Lymph % (Auto) 5.0 L, [place] % (Auto) 3.1, Eos % (Auto) 0.1, Baso % (Auto) 0.2, Neut # (Auto) 15.0 H, Lymph # (Auto) 0.8, [place] # (Auto) 0.5, Eos # (Auto) 0.0, Baso # (Auto) 0.0, Total Counted 100, Neutrophils % (Manual) 86 H, Lymphocytes % (Manual) 12, Monocytes % (Manual) 1 L, Eosinophils % (Manual) 1, Platelet Estimate Normal, RBC Morphology Normal, Sodium 139, Potassium 4.2, Chloride 105, Carbon Dioxide 28, Anion Gap 10.2, BUN 18 D, Creatinine 0.80, Estimated Creat Clear 116, Estimated GFR 99, Est GFR ( Amer) 120, Glucose 214 H, Calcium 8.2 L, Phosphorus 4.0, Magnesium 1.9 D 07/06/24 12:28: POC Glucose 169 H I & O for Labs for Last 24 Hours: Intake & Output 07/03/24 07/04/24 07/05/24 07/06/24 23:59 23:59 23:59 23:59 Intake Total 4066 / 4126 2114 / 2114 3700 / 3750 50 / 50 Output Total 1325 / 1500 4225 / 4225 1300 / 1300 0 / 0 Balance 2741 / 2626 -2111 / -2111 2400 / 2450 50 / 50 Weight 74.523 kg 74.523 kg 82.191 kg 82.191 kg Microbiology Reports for the Last 24 Hours: Microbiology 07/02/24 17:00 Blood Blood Culture - Final Citrobacter braakii Klebsiella pneumoniae 07/02/24 17:11 Blood Blood Culture - Preliminary Gram Negative Rods Gram Negative Rods#2 Constitutional: Present no acute distress, average body habitus and cooperative Head: Present atraumatic and normocephalic ENT: Present normal exam Comment:: NG in nose Respiratory: Present CTA bilaterally; Absent rhonchi, wheezes or crackles Cardiac: Present Reg Rate and Rhythm GI: Present soft, tenderness (Diffuse, worse over surgical incisions) and hypoactive bowel sounds; Absent distention Skin: Present intact; Absent cyanosis Neuro: Present alert, awake, oriented x 3 and moves all extremities Assessment and Plan *Assessment and plan (1) Bacteremia: Status: Acute Category: Medical Code(s): R78.81 - Bacteremia (2) Ileus, postoperative: Status: Acute Category: Medical Code(s): K91.89 - Other postprocedural complications and disorders of digestive system; K56.7 - Ileus, unspecified (3) Diarrhea: Status: Acute Category: Medical Code(s): R19.7 - Diarrhea, unspecified (4) S/P exploratory laparotomy: Status: Inactive Category: Medical Code(s): Z98.890 - Other specified postprocedural states (5) CAD (coronary artery disease), [place] coronary artery: Status: Acute Qualifiers: [place] vs. transplanted heart: [place] heart Associated angina: unspecified whether angina present Qualified Code(s): I25.10 - Atherosclerotic heart disease of [place] coronary artery without angina pectoris Category: Medical Code(s): I25.10 - Atherosclerotic heart disease of [place] coronary artery without angina pectoris (6) History of heart attack: Status: Inactive Category: Medical Code(s): I25.2 - Old myocardial infarction (7) Depression: Status: Acute Qualifiers: Depression Type: unspecified Qualified Code(s): F32.9 - Major depressive disorder, single episode, unspecified Category: Medical Code(s): F32.9 - Major depressive disorder, single episode, unspecified Plan 58-year-old male with PMHx of CAD s/p stent, open appendectomy, and recent bowel resection due to small bowel obstruction. Presented to surgery clinic with persistent nausea and vomiting, dehiscence of proximal portion of the surgical wound, and diarrhea. Postop day 1. Status post repeat surgery yesterday with takedown of significant adhesions. Inflammation of anastomosis. Continues to require inpatient management. Blood cultures returned positive. Surgery continue to assist with care. Problems addressed as follows: Postop ileus Initial operation 06/17 for bowel obstruction with removal of part of small bowel and end-to-end anastomosis. Repeat surgery yesterday with exploratory laparotomy. Takedown of numerous adhesions. Found to have significant inflammation of the abdominal cavity. Discussed case with surgery this morning. Continue NPO. Continuing TPN at this time. Will monitor for bowel movements and flatus. Zofran as needed every 8 hours for nausea Continue Dilaudid 1 g IV as needed every 2 hours severe breakthrough pain. 6 doses used already today, monitor for toxicity. Continue Toradol every 6 hours as needed. -NG remains in place to low wall suction Klebsiella and Citrobacter bacteremia -White count elevated at 16.4, repeat CBC, CMP, magnesium ordered for the morning -Given resistance pattern, will transition to ertapenem 1 g daily. Discontinue Zosyn Chronic conditions CAD s/p stent, Hx of heart attack depression Holding medications while NPO. Will resume when appropriate Holding Plavix SCD for DVT ppx Full code TPN
[2024-07-06] MEDS: ERTAPENEM SODIUM 1 GM in 0.9 % SODIUM CHLORIDE 50 ML IV (13:20)
[2024-07-06] MEDS: FAT EMULSIONS 250 ML 60 ML IV (14:23)
--- NOTE | 2024-07-06 17:30 | PC.NURSE ---
pt has been resting on and off throughout shift. he has complained of pain for majority of the shift and was treated per MAR, which the patient states the dilaudid relives the pain pretty well. NG canaster has been emptied once today with 800 ml out. NG is currently set to low wall suction. pt sat in the chair today for about 15 mins and tolerated well. hanna is continuing to drain green/blue tinted urine from the dye given previously. bowel sounds are hypoactive and abdomen is tender to touch. he is tolerating 2 LNC well and is 97%. no further requests at this time, call light within reach.
[2024-07-06 18:25] LABS: POC Glucose,Bedside 152 (70-110)
[2024-07-06] MEDS: AMINO ACID 5% IV (20:14)
[2024-07-06] MEDS: MELATONIN 5MG TABLET 10 MG PO (20:14)
[2024-07-06] MEDS: [UNRECOGNIZED DRUG - OTHER] IV (20:14)
[2024-07-06] MEDS: DEX IV (20:14)
--- NOTE | 2024-07-06 22:19 | PC.NURSE ---
urine is greenish blue, nurse is aware
[2024-07-07] VITALS (13 sets, daily range): BP systolic 110–148; BP diastolic 59–71; PULSE 73–95; RESP 12–24; TEMP 36.3–37.3; O2SAT 90–97; BMI 28.4
[2024-07-07] MEDS: LACTATED RINGERS 1000ML 1,000 ML 125 ML IV ×2 (00:41→08:51)
[2024-07-07] MEDS: METOCLOPRAMIDE HCL 10MG/2ML VIAL 5 MG IVP ×4 (04:00→23:28)
[2024-07-07] MEDS: HYDROMORPHONE 2MG/ML SYRINGE 1 MG IV ×5 (04:00→20:53)
[2024-07-07] MEDS: KETOROLAC 30MG/ML VIAL 15 MG IV ×3 (05:09→18:37)
[2024-07-07 05:29] LABS: Basophils % 0.1 % (0.1-2.0); Eosinophils % 0.3 % (0.1-12.0); Hematocrit 33.9 % (42.0-52.0); Hemoglobin 10.8 g/dL (14.1-18.0); Lymphocytes % 7.4 % (10-50); Mean Corpuscular HGB Conc 31.9 g/dL (31.8-35.4); Mean Corpuscular Hemoglobin 30.9 pg (27.0-31.2); Mean Corpuscular Volume 96.8 fl (80-94); Mean Platelet Volume 8.9 fl (7.4-10.4); Monocytes # 0.6 K/mm3 (0.1-1.0); Monocytes % 4.6 % (1.7-9.3); Neutrophils # 11.7 K/mm3 (1.8-7.8); Neutrophils % 87.5 % (37.0-80.0); Platelet Count 293 K/mm3 (142-424); Red Cell Distribution Width 13.6 % (11.5-17.5); White Blood Count 13.3 K/mm3 (4.8-10.8)
[2024-07-07 05:31] LABS: Chloride 105 mmol/L (98-107); MANUAL DIFFERENTIAL MANUAL DIFFERENTIAL (MANUAL DIFF); Sodium 137 mmol/L (136-145)
[2024-07-07 05:32] LABS: Potassium 4.1 mmoL/L (3.5-5.1)
[2024-07-07 05:35] LABS: Anion Gap 6.1 mEq/L (5-15); Blood Urea Nitrogen 21 mg/dl (9-20); Carbon Dioxide 30 mmol/L (22.0-30.0); Creatinine Clearance Estimated 116 mL/min (50-200); Estimated Glomerular Filt Rate 99 ml/min (>60); GFR (African American) 120 ML/MIN (>60); Glucose 139 mg/dl (74-100)
[2024-07-07 05:44] LABS: Magnesium 2.2 mg/dl (1.6-2.3); Phosphorous 3.4 mg/dl (2.5-4.5)
[2024-07-07 06:04] LABS: Eosinophils % 1 % (0-3); Lymphocytes % 10 % (10-50); Monocytes % 3 % (2-9); Neutrophils % 85 % (42-76); RBC Morphology Normal; Total Cells Counted 100
[2024-07-07] MEDS: ONDANSETRON 4MG/2ML VIAL 4 MG IV (08:47)
[2024-07-07] MEDS: SIMETHICONE 40MG/0.6ML DROPS; 30ML BOTTLE 2.4 ML PO ×3 (10:02→21:02)
--- NOTE | 2024-07-07 11:50 | EXP.SURG.PN ---
Subjective Narrative: Patient states that he did not sleep well. Nothing particularly bothering him other than some incisional tenderness. Still with moderate NG output. Vital signs within reasonable limits. Exam Data for Last 24 hours Vital signs and Labs for Last 24 Hours: Temp Pulse Resp BP Pulse Ox O2 Del Method O2 Flow Rate 97.3 F L 82 20 116/64 91 L Room Air 2 07/07/24 07:42 07/07/24 10:00 07/07/24 10:00 07/07/24 10:00 07/07/24 10:00 07/07/24 10:00 07/07/24 09:00 FiO2 2 07/06/24 14:00 Laboratory Results - last 24 hr 07/06/24 12:28: POC Glucose 169 H 07/06/24 16:43: POC Glucose 152 H 07/07/24 05:20: WBC 13.3 H, RBC 3.50 L, Hgb 10.8 L, Hct 33.9 L, MCV 96.8 H, MCH 30.9, MCHC 31.9, RDW 13.6, Plt Count 293, MPV 8.9, Neut % (Auto) 87.5 H, Lymph % (Auto) 7.4 L, [place] % (Auto) 4.6, Eos % (Auto) 0.3, Baso % (Auto) 0.1, Neut # (Auto) 11.7 H, Lymph # (Auto) 1.0, [place] # (Auto) 0.6, Eos # (Auto) 0.0, Baso # (Auto) 0.0, Total Counted 100, Neutrophils % (Manual) 85 H, Lymphocytes % (Manual) 10, Atypical Lymphs % 1.0, Monocytes % (Manual) 3, Eosinophils % (Manual) 1, RBC Morphology Normal, Sodium 137, Potassium 4.1, Chloride 105, Carbon Dioxide 30, Anion Gap 6.1, BUN 21 H, Creatinine 0.80, Estimated Creat Clear 116, Estimated GFR 99, Est GFR ( Amer) 120, Glucose 139 H D, Calcium 8.0 L, Phosphorus 3.4, Magnesium 2.2 D I & O for Last 24 hours: Intake & Output 07/04/24 07/05/24 07/06/24 07/07/24 11:59 11:59 11:59 11:59 Intake Total 3749 / 3749 0 / 0 3750 / 3750 2125 / 2125 Output Total 1125 / 1325 4450 / 4600 150 / 150 2205 / 2205 Balance 2624 / 2424 -4450 / -4600 3600 / 3600 -80 / -80 Weight 164 lb 4.721 oz 186 lb 4.8 oz 181 lb 3.2 oz 181 lb 3.202 oz Microbiology Reports for the Last 24 Hours: Microbiology 07/02/24 17:11 Blood Blood Culture - Final Citrobacter braakii Klebsiella pneumoniae 07/02/24 17:00 Blood Blood Culture - Final Citrobacter braakii Klebsiella pneumoniae *Routine Abdominal Exam Comments: Incision with some serosanguineous drainage on the dressing. Incisional tenderness. Mild distention. Progress Note: A&P Assessment and plan (1) Bacteremia: Status: Acute (2) Ileus, postoperative: Status: Acute (3) Diarrhea: Status: Acute (4) S/P exploratory laparotomy: Status: Inactive Assessment and plan: DC Eagle. Ambulate. Continue antibiotics for bacteremia. Continue NG. (5) CAD (coronary artery disease), [place] coronary artery: Status: Acute (6) History of heart attack: Status: Inactive (7) Depression: Status: Acute
--- NOTE | 2024-07-07 12:14 | EXP.ACUTE.PN ---
Subjective *Date: 07/07/24 *Time: 15:58 Interval history: Denies nausea or Meding. Stable on room air. No flatus or bowel movement as of yet. Afebrile overnight. Medical Exam Vital signs and Labs for Last 24 Hours: Vital Signs Temp Pulse Pulse Resp BP Pulse Ox O2 Del Method 07/07/24 12:00 99.0 F 86 18 118/63 93 L Nasal Cannula 07/07/24 10:00 82 20 116/64 91 L Room Air 07/07/24 09:00 Nasal Cannula 07/07/24 08:00 90 07/07/24 08:00 Nasal Cannula 07/07/24 08:00 73 20 118/67 97 Nasal Cannula 07/07/24 07:42 97.3 F L 07/07/24 07:00 Nasal Cannula 07/07/24 06:00 87 24 120/68 95 Room Air 07/07/24 05:00 Nasal Cannula 07/07/24 04:05 97 Nasal Cannula 07/07/24 04:00 95 H 07/07/24 03:39 97.6 F 07/07/24 03:00 Nasal Cannula 07/07/24 02:00 86 15 110/67 94 L Nasal Cannula 07/07/24 00:44 Nasal Cannula 07/07/24 00:00 84 07/07/24 00:00 87 12 110/62 95 Nasal Cannula 07/07/24 00:00 98.1 F 07/06/24 23:15 Nasal Cannula 07/06/24 22:00 94 H 17 110/79 95 Nasal Cannula 07/06/24 21:09 98.1 F 07/06/24 21:02 Nasal Cannula 07/06/24 20:00 105 H 07/06/24 20:00 105 H 94 L Nasal Cannula 07/06/24 20:00 97.8 F 106 H 17 142/59 H 93 L Nasal Cannula 07/06/24 18:47 Nasal Cannula 07/06/24 18:00 100 H 18 114/67 95 Nasal Cannula 07/06/24 17:00 Nasal Cannula 07/06/24 16:00 90 07/06/24 16:00 2 L Nasal Cannula 07/06/24 16:00 89 16 114/41 L 96 Nasal Cannula 07/06/24 15:00 Nasal Cannula 07/06/24 14:00 81 18 115/65 95 Nasal Cannula 07/06/24 13:00 Nasal Cannula O2 Flow Rate FiO2 07/07/24 12:00 07/07/24 10:00 07/07/24 09:00 2 07/07/24 08:00 07/07/24 08:00 2 07/07/24 08:00 2 07/07/24 07:42 07/07/24 07:00 2 07/07/24 06:00 07/07/24 05:00 2 07/07/24 04:05 2 07/07/24 04:00 07/07/24 03:39 07/07/24 03:00 2 07/07/24 02:00 2 07/07/24 00:44 2 07/07/24 00:00 07/07/24 00:00 2 07/07/24 00:00 07/06/24 23:15 2 07/06/24 22:00 2 07/06/24 21:09 07/06/24 21:02 2 07/06/24 20:00 07/06/24 20:00 2 07/06/24 20:00 2 07/06/24 18:47 2 07/06/24 18:00 2 07/06/24 17:00 2 07/06/24 16:00 07/06/24 16:00 07/06/24 16:00 2 07/06/24 15:00 07/06/24 14:00 2 07/06/24 13:00 Intake and Output 07/06/24 07/07/24 07/07/24 23:59 07:59 15:59 Intake Total 350 / 400 1775 / 1775 Output Total 275 / 1655 1130 / 1130 Balance 75 / -1255 -1130 / 645 1775 / 645 Intake: Intake, Oral Amount 0 / 0 Intake, Total IV Amount 350 / 400 1775 / 1775 Ertapenem Sodium 1 gm In 0.9 % 50 / 50 50 / 50 Sodium Chloride 50 ml @ 100 mls /hr IV Q24H SHARON Rx#:[id number] Fat Emulsions 250 ml @ 60 mls/ 250 / 250 hr IV 1400 SHARON Rx#:[id number] Lactated Ringers 1000ML 1,000 1725 / 1725 ml @ 125 mls/hr IV .Q8H SHARON Rx# :[id number] Magnesium Sulfate in Water 2 gm 50 / 50 In 50 ml @ 50 mls/hr IV ONCE ONE Rx#:[id number] Output: Output, Urine Amount 275 / 275 550 / 550 Output, Gastric Drainage Amount 580 / 580 Right Nare 580 / 580 Other: Number of Unmeasured Voids 0 0 0 Number of Bowel Movements 1 Weight 82.191 kg Patient Weight 07/07/24 23:59 Weight 82.191 kg Laboratory Results - last 24 hr 07/06/24 12:28: POC Glucose 169 H 07/06/24 16:43: POC Glucose 152 H 07/07/24 05:20: WBC 13.3 H, RBC 3.50 L, Hgb 10.8 L, Hct 33.9 L, MCV 96.8 H, MCH 30.9, MCHC 31.9, RDW 13.6, Plt Count 293, MPV 8.9, Neut % (Auto) 87.5 H, Lymph % (Auto) 7.4 L, [place] % (Auto) 4.6, Eos % (Auto) 0.3, Baso % (Auto) 0.1, Neut # (Auto) 11.7 H, Lymph # (Auto) 1.0, [place] # (Auto) 0.6, Eos # (Auto) 0.0, Baso # (Auto) 0.0, Total Counted 100, Neutrophils % (Manual) 85 H, Lymphocytes % (Manual) 10, Atypical Lymphs % 1.0, Monocytes % (Manual) 3, Eosinophils % (Manual) 1, RBC Morphology Normal, Sodium 137, Potassium 4.1, Chloride 105, Carbon Dioxide 30, Anion Gap 6.1, BUN 21 H, Creatinine 0.80, Estimated Creat Clear 116, Estimated GFR 99, Est GFR ( Amer) 120, Glucose 139 H D, Calcium 8.0 L, Phosphorus 3.4, Magnesium 2.2 D I & O for Labs for Last 24 Hours: Intake & Output 07/04/24 07/05/24 07/06/24 07/07/24 23:59 23:59 23:59 23:59 Intake Total 2113 / 2113 3700 / 3750 400 / 400 1775 / 1775 Output Total 4225 / 4225 1300 / 1300 1075 / 1655 1130 / 1130 Balance -2111 / -2111 2400 / 2450 -675 / -1255 645 / 645 Weight 74.523 kg 82.191 kg 82.191 kg 82.191 kg Microbiology Reports for the Last 24 Hours: Microbiology 07/02/24 17:11 Blood Blood Culture - Final Citrobacter braakii Klebsiella pneumoniae 07/02/24 17:00 Blood Blood Culture - Final Citrobacter braakii Klebsiella pneumoniae Constitutional: Present no acute distress, average body habitus and cooperative Head: Present atraumatic and normocephalic ENT: Present normal exam Comment:: NG in nose Respiratory: Present CTA bilaterally; Absent rhonchi, wheezes or crackles Cardiac: Present Reg Rate and Rhythm GI: Present soft, tenderness (Diffuse, worse over surgical incisions) and hypoactive bowel sounds; Absent distention Skin: Present intact; Absent cyanosis Neuro: Present alert, awake, oriented x 3 and moves all extremities Assessment and Plan *Assessment and plan (1) Bacteremia: Status: Acute Category: Medical Code(s): R78.81 - Bacteremia (2) Ileus, postoperative: Status: Acute Category: Medical Code(s): K91.89 - Other postprocedural complications and disorders of digestive system; K56.7 - Ileus, unspecified (3) Diarrhea: Status: Acute Category: Medical Code(s): R19.7 - Diarrhea, unspecified (4) S/P exploratory laparotomy: Status: Inactive Category: Surgical Code(s): Z98.890 - Other specified postprocedural states (5) CAD (coronary artery disease), [place] coronary artery: Status: Acute Qualifiers: Associated angina: unspecified whether angina present [place] vs. transplanted heart: [place] heart Qualified Code(s): I25.10 - Atherosclerotic heart disease of [place] coronary artery without angina pectoris Category: Medical Code(s): I25.10 - Atherosclerotic heart disease of [place] coronary artery without angina pectoris (6) History of heart attack: Status: Inactive Category: Medical Code(s): I25.2 - Old myocardial infarction (7) Depression: Status: Acute Qualifiers: Depression Type: unspecified Qualified Code(s): F32.9 - Major depressive disorder, single episode, unspecified Category: Medical Code(s): F32.9 - Major depressive disorder, single episode, unspecified Plan 58-year-old male with PMHx of CAD s/p stent, open appendectomy, and recent bowel resection due to small bowel obstruction. Presented to surgery clinic with persistent nausea and vomiting, dehiscence of proximal portion of the surgical wound, and diarrhea. Postop day 1. Status post repeat surgery yesterday with takedown of significant adhesions. Inflammation of anastomosis. Continues to require inpatient management. Tolerating antibiotics. No flatus. Surgery continue to assist with care. Problems addressed as follows: Postop ileus - Initial operation 06/17 for bowel obstruction with removal of part of small bowel and end-to-end anastomosis. Repeat surgery yesterday with exploratory laparotomy. Takedown of numerous adhesions. Found to have significant inflammation of the abdominal cavity. - Discussed case with surgery this morning. Continue NPO. Continuing TPN at this time. Will monitor for bowel movements and flatus. - Zofran as needed every 8 hours for nausea - Continue Dilaudid 1 g IV as needed every 2 hours severe breakthrough pain. 6 doses used already today, monitor for toxicity. - Continue Toradol every 6 hours as needed. -NG remains in place to low wall suction -Kidney function normal with BUN 21, creatinine 0.8. Klebsiella and Citrobacter bacteremia -White count improved to 13.3. repeat CBC, CMP, magnesium ordered for the morning -Continue ertapenem 1 g daily. Anticipate 10 days of antibiotics Chronic conditions CAD s/p stent, Hx of heart attack depression Holding medications while NPO. Will resume when appropriate Holding Plavix Discontinue [place]. Discontinue IV fluids while continuing TPN. Will administer bolus fluids if needed. SCD for DVT ppx Full code TPN
[2024-07-07] MEDS: AA 5 %/CALCIUM/LYTES/DEXT 20 % 1,000 ML 65 ML IV (12:21)
[2024-07-07] MEDS: ERTAPENEM SODIUM 1 GM in 0.9 % SODIUM CHLORIDE 50 ML IV (12:23)
--- NOTE | 2024-07-07 13:33 | DIET.NUTRFU ---
patient continues on TPN, LR's discontinued due to decreased output via NG. Only 800ml compared to 1500ml on 07/04. Labs reviewed, electrolytes were WNL. provider encouraged patient to get up and move around. BM noted today, will upgrade diet according to sx recommendations
[2024-07-07] MEDS: FAT EMULSIONS 250 ML 60 ML IV (15:42)
--- NOTE | 2024-07-07 18:50 | PC.NURSE ---
took over care around 1200. pt stated he didnt get much sleep last night and wanted to be left alone. placed sign on door to see nurse before entering to allow time for rest. pt stated he still didnt get much sleep. has been at bs all day. took a walk around 1800 and pt became lightheaded, shaky and had to sit down. v/s were stable. ashlyn was with this nurse and pt when episode happened. pt walked well back to room and got back in bed. stated pt seems to be spaced out and said it has been happening more this evening. made ashlyn aware and he said it was okay to remove monitors to decrease distrations to ensure rest. spoke with about pts need for sleep and decided no one needs to stay with him tonight to hopefully sleep. decreased ng output this shift. treated abd pain per jan. pt currently lying in bed with eyes closed, cb and personal items within reach and bed alarm on for pt safety.
[2024-07-07 18:52] LABS: POC Glucose,Bedside 108 (70-110)
[2024-07-07] MEDS: ACETAMINOPHEN 500MG TAB 500 MG PO (20:52)
[2024-07-07] MEDS: MELATONIN 5MG TABLET 10 MG PO (21:02)
[2024-07-07 23:40] LABS: POC Glucose,Bedside 176 (70-110)
[2024-07-08 04:00] VITALS: BP 127/68; PULSE 86; RESP 18; TEMP 36.8; O2SAT 98; BMI 28.5
[2024-07-08] MEDS: AA 5 %/CALCIUM/LYTES/DEXT 20 % 1,000 ML 65 ML IV (04:41)
[2024-07-08] MEDS: HYDROMORPHONE 2MG/ML SYRINGE 1 MG IV ×7 (04:48→22:41)
--- NOTE | 2024-07-08 05:01 | PC.NURSE ---
58 yo male pt A/O X 4. Pt has not been out of bed this shift, has voided per urinal with no BM and denies passing gas. BS hypoactive X 4 quads. He has been medicated with hydromorphone X 2 through the night for complaints of abdominal pain. Dressing to abdomen has remained C/D/I. NG to right nare at 63 continues output of dark green return. FSBS at 2400 was 176. Pt has been able to sleep/rest through this shift
[2024-07-08 05:47] LABS: POC Glucose,Bedside 132 (70-110)
[2024-07-08] MEDS: METOCLOPRAMIDE HCL 10MG/2ML VIAL 5 MG IVP ×4 (05:47→22:11)
[2024-07-08 05:49] LABS: Basophils % 0.3 % (0.1-2.0); Eosinophils # 0.2 K/mm3 (0.0-0.4); Eosinophils % 2.3 % (0.1-12.0); Hematocrit 30.7 % (42.0-52.0); Hemoglobin 9.4 g/dL (14.1-18.0); Lymphocytes % 9.2 % (10-50); Mean Corpuscular HGB Conc 30.8 g/dL (31.8-35.4); Mean Corpuscular Hemoglobin 30.4 pg (27.0-31.2); Mean Corpuscular Volume 98.5 fl (80-94); Mean Platelet Volume 9.1 fl (7.4-10.4); Monocytes # 0.8 K/mm3 (0.1-1.0); Neutrophils # 8.8 K/mm3 (1.8-7.8); Neutrophils % 81.3 % (37.0-80.0); Platelet Count 286 K/mm3 (142-424); Red Blood Count 3.11 M/mm3 (4.60-6.20); Red Cell Distribution Width 13.9 % (11.5-17.5); White Blood Count 10.8 K/mm3 (4.8-10.8)
[2024-07-08 05:55] LABS: Albumin Level 2.6 g/dl (3.5-5.0); Chloride 105 mmol/L (98-107); Potassium 4.1 mmoL/L (3.5-5.1); Sodium 135 mmol/L (136-145)
[2024-07-08 05:57] LABS: Blood Urea Nitrogen 18 mg/dl (9-20); Creatinine Clearance Estimated 133 mL/min (50-200); Estimated Glomerular Filt Rate 115 ml/min (>60); GFR (African American) 140 ML/MIN (>60)
[2024-07-08 05:58] LABS: Alanine Aminotransferase 31 U/L (12-78); Albumin/Globulin Ratio 0.9 (1.1-1.8); Alkaline Phosphatase 56 U/L (38-126); Anion Gap 5.1 mEq/L (5-15); Aspartate Amino Transferase 25 U/L (17-59); Bilirubin,Total 0.5 mg/dl (0.2-1.3); Calcium 7.8 mg/dl (8.4-10.2); Carbon Dioxide 29 mmol/L (22.0-30.0); Globulin 2.8 g/dL (1.3-3.2); Glucose 129 mg/dl (74-100); Total Protein,Serum 5.4 g/dl (6.3-8.2)
[2024-07-08 05:59] LABS: Magnesium 1.9 mg/dl (1.6-2.3); Phosphorous 3.3 mg/dl (2.5-4.5)
--- NOTE | 2024-07-08 07:10 | P.PN_ITS ---
Subjective Patient reports: no flatus Exam Data for Last 24 hours Vital signs and Labs for Last 24 Hours: Temp Pulse Resp BP Pulse Ox O2 Del Method O2 Flow Rate 98.3 F 86 18 127/68 98 Nasal Cannula 2 07/08/24 04:00 07/08/24 04:00 07/08/24 04:00 07/08/24 04:00 07/08/24 04:00 07/08/24 06:48 07/08/24 06:48 FiO2 2 07/06/24 14:00 Laboratory Results - last 24 hr 07/07/24 18:36: POC Glucose 108 07/07/24 23:27: POC Glucose 176 H 07/08/24 05:30: WBC 10.8, RBC 3.11 L, Hgb 9.4 L, Hct 30.7 L, MCV 98.5 H, MCH 30.4, MCHC 30.8 L, RDW 13.9, Plt Count 286, MPV 9.1, Neut % (Auto) 81.3 H, Lymph % (Auto) 9.2 L, [place] % (Auto) 7.0, Eos % (Auto) 2.3, Baso % (Auto) 0.3, Neut # (Auto) 8.8 H, Lymph # (Auto) 1.0, [place] # (Auto) 0.8, Eos # (Auto) 0.2, Baso # (Auto) 0.0, Sodium 135 L, Potassium 4.1, Chloride 105, Carbon Dioxide 29, Anion Gap 5.1, BUN 18, Creatinine 0.70, Estimated Creat Clear 133, Estimated GFR 115, Est GFR ( Amer) 140, Glucose 129 H, Calcium 7.8 L, Phosphorus 3.3, Magnesium 1.9 D, Total Bilirubin 0.5, AST 25, ALT 31, Alkaline Phosphatase 56, Total Protein 5.4 L, Albumin 2.6 L, Globulin 2.8, Albumin/Globulin Ratio 0.9 L 07/08/24 05:32: POC Glucose 132 H I & O for Last 24 hours: Intake & Output 07/05/24 07/06/24 07/07/24 07/08/24 11:59 11:59 11:59 11:59 Intake Total 0 / 0 3750 / 3750 2125 / 2125 3253 / 3253 Output Total 4450 / 4600 150 / 150 2605 / 2605 1025 / 1025 Balance -4450 / -4600 3600 / 3600 -480 / -480 2228 / 2228 Weight 186 lb 4.8 oz 181 lb 3.2 oz 181 lb 3.202 oz 182 lb 1.6 oz Microbiology Reports for the Last 24 Hours: Microbiology 07/02/24 17:11 Blood Blood Culture - Final Citrobacter braakii Klebsiella pneumoniae Constitutional Constitutional: no acute distress *Routine Respiratory Exam Respiratory: Absent respiratory distress *Routine Cardiovascular Exam Cardiovascular: Absent tachycardia *Routine Abdominal Exam Comments: Incision healing without evidence of infection Progress Note: A&P Assessment and plan (1) SBO (small bowel obstruction): Status: Acute (2) Ileus, postoperative: Status: Acute (3) S/P exploratory laparotomy: Status: Inactive Assessment and Plan Assessment and Plan for All Diagnoses:: Overall, doing fairly well postoperative day 3 status post repeat exploratory laparotomy with repeat small bowel resection. Continue nasogastric decompression for now Increase ambulation Await return of bowel function
[2024-07-08 08:00] VITALS: BP 122/60; PULSE 69; RESP 18; TEMP 36.6; O2SAT 95
[2024-07-08] MEDS: SIMETHICONE 40MG/0.6ML DROPS; 30ML BOTTLE 2.4 ML PO ×3 (09:02→20:47)
[2024-07-08] MEDS: FUROSEMIDE 40MG/4ML VIAL 40 MG IV (09:04)
[2024-07-08] MEDS: ENOXAPARIN 40MG/0.4ML SYRINGE 40 MG SQ (09:52)
[2024-07-08] MEDS: MAGNESIUM SULFATE IN WATER 2 GM/50 ML PIGGYBACK IV (09:53)
[2024-07-08 10:00] VITALS: TEMP 36.6
--- NOTE | 2024-07-08 11:02 | HMH.OTEV ---
OT Inpatient Evaluation Rehab OT IP Evaluation Start: 07/08/24 09:33 Freq: ONCE Status: Active Protocol: Document 07/08/24 10:53 DEANGELO (Rec: 07/08/24 11:02 DEANGELO [id number]) Rehab OT IP Assessment Subjective History 58-year-old male with PMHx of CAD s/p stent, open appendectomy, and recent bowel resection due to small bowel obstruction. Presented to surgery clinic with persistent nausea and vomiting, dehiscence of proximal portion of the surgical wound, and diarrhea. Postop day 1. Status post repeat surgery yesterday with takedown of significant adhesions. Inflammation of anastomosis. Continues to require inpatient management. Tolerating antibiotics. No flatus. Surgery continue to assist with care. Problems addressed as follows: Postop ileus - Initial operation 06/17 for bowel obstruction with removal of part of small bowel and end-to-end anastomosis. Repeat surgery yesterday with exploratory laparotomy. Takedown of numerous adhesions . Found to have significant inflammation of the abdominal cavity. - Discussed case with surgery this morning. Continue NPO. Continuing TPN at this time. Will monitor for bowel movements and flatus. - Zofran as needed every 8 hours for nausea - Continue Dilaudid 1 g IV as needed every 2 hours severe breakthrough pain. 6 doses used already today, monitor for toxicity. - Continue Toradol every 6 hours as needed. -NG remains in place to low wall suction -Kidney function normal with BUN 21, creatinine 0.8. Klebsiella and Citrobacter bacteremia -White count improved to 13.3. repeat CBC, CMP, magnesium ordered for the morning -Continue ertapenem 1 g daily. Anticipate 10 days of antibiotics Chronic conditions CAD s/p stent, Hx of heart attack depression Holding medications while NPO. Will resume when appropriate Holding Plavix Discontinue [place]. Discontinue IV fluids while continuing TPN. Will administer bolus fluids if needed. Patient lives in a 1 story home with . Patient is indepedent with ADLs and fx'l mobility. Continues to drive and work in [place]. Subjective I can get up. Instructed PAtient on proper hand and foot placement to complete bed mobility from supine->sit @ EOB->stand with needing CGA. patient demonstrated good dynamic sitting balance at EOB. Patient just complains of stomach pain. Instructed Patient on safety awareness to complete sit->stand->steps. limited mobility this morning due to IV medication and NG tubing. SBA for safety. Nursing stated to unhook medication later this afternoon to assess ambulation . Objective Patient Orientation Person,Name,Age,Year Right Upper Extremity Gross ROM WFL Left Upper Extremity Gross ROM WFL Bed Mobility bed mobility - supine/sit Assist Level Contact Guard/Hand Hold Transfer Training Sit/Stand/Pivot Transfer Assist Level Contact Guard/Hand Hold Chair Transfer Ability Contact Guard/Hand Hold Chair Transfer Technique Sit to/from Ambulatory Chair Transfer Assistive Devices None Rehab OT IP prob,goals,plan Problems Date of Evaluation: 07/08/24 OT IP Problems Bed Mobility,Transfers,Balance ,Self care,Safety Rehab Potential Rehab Potential Good Equipment Needs Assistive Devices None / NA Plan OT intervention Plan Bed Mobility,Transfers,Balance ,Self care,Safety,Therapeutic Exercise OT Plan Frequency Daily Duration LOS Discharge Goals Bed Mobility Ability Standby Assistance Sit to Stand Chair Transfer Ability Independent Chair Transfer Ability Independent Chair Transfer Technique Sit to/from Ambulatory Chair Transfer Assistive Devices None Discharge Plan OT Discharge Plan Recommend services after medical d/c from hospital. Patient to continue OT IP services while here at [facility]. Eval Complexity Eval Charge Codes 41973 - Low Complexity PHYSICIAN CERTIFICATION: I certify the specified therapy services for [place] are required, authorized, and reviewed every 30 days.
--- NOTE | 2024-07-08 11:11 | P.PN_ITS ---
Subjective *Date: 07/08/24 *Time: 11:11 Interval history: Patient felt weak yesterday. No bowel movement or flatus overnight. No nausea or vomiting. Still states he just does not feel well and have normal pain mainly in the muscles, Afebrile overnight. Medical Exam Vital signs and Labs for Last 24 Hours: Vital Signs Temp Pulse Pulse Resp BP Pulse Ox O2 Del Method 07/08/24 09:00 Nasal Cannula 07/08/24 08:00 Nasal Cannula 07/08/24 08:00 97.8 F 69 18 122/60 95 Room Air 07/08/24 06:48 Nasal Cannula 07/08/24 05:00 Nasal Cannula 07/08/24 04:00 98.3 F 86 18 127/68 98 Room Air 07/08/24 03:00 Nasal Cannula 07/08/24 01:00 Nasal Cannula 07/07/24 23:00 Nasal Cannula 07/07/24 21:05 Nasal Cannula 07/07/24 21:00 Nasal Cannula 07/07/24 20:00 96 Nasal Cannula 07/07/24 20:00 99.2 F 84 20 122/59 L 96 Nasal Cannula 07/07/24 18:48 Room Air 07/07/24 18:00 98.5 F 91 H 18 148/71 H 90 L Room Air 07/07/24 17:00 Room Air 07/07/24 16:00 80 07/07/24 16:00 98.1 F 87 20 125/69 93 L Room Air 07/07/24 15:00 Room Air 07/07/24 13:00 Room Air 07/07/24 12:00 90 07/07/24 12:00 99.0 F 86 18 118/63 93 L Nasal Cannula O2 Flow Rate 07/08/24 09:00 2 07/08/24 08:00 2 07/08/24 08:00 07/08/24 06:48 2 07/08/24 05:00 2 07/08/24 04:00 07/08/24 03:00 2 07/08/24 01:00 2 07/07/24 23:00 2 07/07/24 21:05 2 07/07/24 21:00 2 07/07/24 20:00 2 07/07/24 20:00 2 07/07/24 18:48 07/07/24 18:00 07/07/24 17:00 07/07/24 16:00 07/07/24 16:00 07/07/24 15:00 07/07/24 13:00 07/07/24 12:00 07/07/24 12:00 Intake and Output 07/07/24 07/08/24 07/08/24 23:59 07:59 15:59 Intake Total 3253 / 3303 50 / 3303 Output Total 0 / 1530 1525 / 2150 625 / 2150 Balance 0 / 495 1728 / 1153 -575 / 1153 Intake: Intake, Oral Amount 0 / 0 Intake, Oral Supplement Amount 0 / 0 Intake, Total IV Amount 3253 / 3253 Aa 5 %/Calcium/Lytes/Dext 20 % 3003 / 3003 1,000 ml @ 65 mls/hr IV . [id number] ONE Rx#:[id number] Fat Emulsions 250 ml @ 60 mls/ 250 / 250 hr IV 1400 [facility] Rx#:[id number] Infusion Intake 50 / 50 Magnesium Sulfate in Water 2 gm 50 / 50 In 50 ml @ 50 mls/hr IV ONCE ONE Rx#:[id number] Output: Output, Urine Amount 0 / 550 1225 / 1850 625 / 1850 Output, Gastric Drainage Amount 300 / 300 Right Nare 300 / 300 Other: Number of Voids 0 0 Number of Unmeasured Voids 0 0 Weight 82.599 kg Patient Weight 07/08/24 23:59 Weight 82.599 kg Laboratory Results - last 24 hr 07/07/24 18:36: POC Glucose 108 07/07/24 23:27: POC Glucose 176 H 07/08/24 05:30: WBC 10.8, RBC 3.11 L, Hgb 9.4 L, Hct 30.7 L, MCV 98.5 H, MCH 30.4, MCHC 30.8 L, RDW 13.9, Plt Count 286, MPV 9.1, Neut % (Auto) 81.3 H, Lymph % (Auto) 9.2 L, [place] % (Auto) 7.0, Eos % (Auto) 2.3, Baso % (Auto) 0.3, Neut # (Auto) 8.8 H, Lymph # (Auto) 1.0, [place] # (Auto) 0.8, Eos # (Auto) 0.2, Baso # (Auto) 0.0, Sodium 135 L, Potassium 4.1, Chloride 105, Carbon Dioxide 29, Anion Gap 5.1, BUN 18, Creatinine 0.70, Estimated Creat Clear 133, Estimated GFR 115, Est GFR ( Amer) 140, Glucose 129 H, Calcium 7.8 L, Phosphorus 3.3, Magnesium 1.9 D, Total Bilirubin 0.5, AST 25, ALT 31, Alkaline Phosphatase 56, Total Protein 5.4 L, Albumin 2.6 L, Globulin 2.8, Albumin/Globulin Ratio 0.9 L 07/08/24 05:32: POC Glucose 132 H I & O for Labs for Last 24 Hours: Intake & Output 07/05/24 07/06/24 07/07/24 07/08/24 23:59 23:59 23:59 23:59 Intake Total 3700 / 3750 400 / 400 1775 / 2025 3303 / 3303 Output Total 1300 / 1300 1075 / 1655 1530 / 1530 2150 / 2150 Balance 2400 / 2450 -675 / -1255 245 / 495 1153 / 1153 Weight 82.191 kg 82.191 kg 82.191 kg 82.599 kg Microbiology Reports for the Last 24 Hours: Microbiology 07/02/24 17:11 Blood Blood Culture - Final Citrobacter braakii Klebsiella pneumoniae Constitutional: Present no acute distress, average body habitus and cooperative Head: Present atraumatic and normocephalic ENT: Present normal exam Comment:: NG in nose Respiratory: Present CTA bilaterally; Absent rhonchi, wheezes or crackles Cardiac: Present Reg Rate and Rhythm GI: Present soft, tenderness (Diffuse, worse over surgical incisions) and hypoactive bowel sounds; Absent distention Skin: Present intact; Absent cyanosis Neuro: Present alert, awake, oriented x 3 and moves all extremities Assessment and Plan *Assessment and plan (1) Bacteremia: Status: Acute Category: Medical Code(s): R78.81 - Bacteremia (2) Ileus, postoperative: Status: Acute Category: Medical Code(s): K91.89 - Other postprocedural complications and disorders of digestive system; K56.7 - Ileus, unspecified (3) Diarrhea: Status: Acute Category: Medical Code(s): R19.7 - Diarrhea, unspecified (4) S/P exploratory laparotomy: Status: Inactive Category: Surgical Code(s): Z98.890 - Other specified postprocedural states (5) CAD (coronary artery disease), [place] coronary artery: Status: Acute Qualifiers: [place] vs. transplanted heart: [place] heart Associated angina: unspecified whether angina present Qualified Code(s): I25.10 - Atherosclerotic heart disease of [place] coronary artery without angina pectoris Category: Medical Code(s): I25.10 - Atherosclerotic heart disease of [place] coronary artery without angina pectoris (6) History of heart attack: Status: Inactive Category: Medical Code(s): I25.2 - Old myocardial infarction (7) Depression: Status: Acute Qualifiers: Depression Type: unspecified Qualified Code(s): F32.9 - Major depressive disorder, single episode, unspecified Category: Medical Code(s): F32.9 - Major depressive disorder, single episode, unspecified Plan 58-year-old male with PMHx of CAD s/p stent, open appendectomy, and recent bowel resection due to small bowel obstruction. Presented to surgery clinic with persistent nausea and vomiting, dehiscence of proximal portion of the surgical wound, and diarrhea. Postop day 1. Status post repeat surgery yesterday with takedown of significant adhesions. Inflammation of anastomosis. Continues to require inpatient management. Tolerating antibiotics. No flatus. Surgery continue to assist with care. Problems addressed as follows: Postop ileus - Initial operation 06/17 for bowel obstruction with removal of part of small bowel and end-to-end anastomosis. Repeat surgery yesterday with exploratory laparotomy. Takedown of numerous adhesions. Found to have significant inflammation of the abdominal cavity. - Discussed case with surgery this morning. Continue NPO. Continuing TPN at this time. Will monitor for bowel movements and flatus. - Zofran as needed every 8 hours for nausea - Continue Dilaudid 1 g IV as needed every 2 hours severe breakthrough pain. 6 doses used already today, monitor for toxicity. - Continue Toradol every 6 hours as needed. -NG remains in place to low wall suction -Kidney function normal with BUN 18, creatinine 0.7 -Close monitoring of electrolytes on TPN. Potassium 4.1, magnesium 1.9, phos phorus 3.3. Albumin 2.6. Replacing magnesium with 2 g IV today. Klebsiella and Citrobacter bacteremia -White count improved to 10.8. repeat CBC, CMP, magnesium ordered for the morning -Continue ertapenem 1 g daily. Anticipate 7-10 days of antibiotics Chronic conditions CAD s/p stent, Hx of heart attack depression Holding medications while NPO. Will resume when appropriate Holding Plavix Oxygen requirement overnight, concern for volume overload given extensive IV fluids with TPN and IV fluid yesterday. Diurese x 1 Lasix 40 mg IV. Goal negative fluid status today. SCD for DVT ppx Full code TPN Therapy evaluating today due to deconditioning.
[2024-07-08 12:00] VITALS: TEMP 36.6
[2024-07-08] MEDS: ERTAPENEM SODIUM 1 GM in 0.9 % SODIUM CHLORIDE 50 ML IV (12:44)
--- NOTE | 2024-07-08 12:44 | DIET.NUTRFU ---
patient continues on NPO deit with TPN providing nutrition. Upon rounds it was clarified that patient has not had BM. He plans to walk around today and see therapy to help BM and prevent deconditioning from limited mobility. He was also given diuretic tx today, some fluid gains noted secondary to IVF provided over time of admission. Will continue to follow sx recommendations and advance diet when medically feasible. Labs reviewed albumin down at 2.6L, possible d/t fluid status and depletion prior to TPN starting. Na slightly low at 135. Will continue current TPN
[2024-07-08] MEDS: FAT EMULSIONS 250 ML 60 ML IV (13:44)
[2024-07-08 13:55] LABS: POC Glucose,Bedside 107 (70-110)
--- NOTE | 2024-07-08 13:56 | HMH.PTEV ---
Physical Therapy Evaluation Rehab PT IP Evaluation Start: 07/08/24 09:33 Freq: ONCE Status: Active Protocol: Document 07/08/24 13:52 NASREEN (Rec: 07/08/24 13:56 NASREEN [id number]) Subjective/History History History H&P: Mr. Up is a 58-year- old gentleman who presented to the ER and found to have complete bowel obstruction with peritonitis in 06/17/2024. Underwent emergent laparotomy with obstruction of distal jejunum, lysis of adhesions and bowel resection. Was discharged on 06/24 after being able to tolerate advancement of diet and having bowel movements. Presented to the ER over the weekend and then again to surgery clinic for follow-up today with recurrent nausea and vomiting. On the fourth found to have some superficial dehiscence of the upper aspect of his incision with serous drainage. Wound was evaluated today in surgery clinic and packed, concern for seroma, low concern for infection. Continuing to have bilious emesis however and diarrhea daily. Due to the fact that he is unable to keep anything down, continuing to have GI symptoms, medicine was consulted for admission and further management. CT scan obtained on 06/28 in the ER that revealed distended loops of bowel with air-fluid levels. Concern for ileus. Subjective Subjective Patient lives in a 1 story home with . Patient is independent with ADLs and fx'l mobility. Continues to drive and work in [employer]. New diagnosis of cancer in past 12 No months? Rehab PT IP Eval Objective Appearance Patient Behavior Appropriate,Cooperative Patient Orientation Person,Situation Difficulty following instructions none Speech Pattern Clear Ambulation Patient Able to Ambulate Yes Ambulation Observation IP General Gait Pattern Observation No Deviations/Normal Ambulation Distance (feet) 60 Ambulation Assistive Device Rolling Walker Ambulation Ability Contact Guard/Hand Hold Balance Ability to Arise Able, w/o using arms Sitting Balance Steady, safe Standing Balance Steady, wide stance Transfers Bed Transfer Ability Minimal x 1 (25% assist) Sit to Stand Bed Transfer Ability Contact Guard/Hand Hold Rehab PT IP prob,goals,plan Problems Date of Evaluation: 07/08/24 PT IP Problems Bed Mobility,Transfers,Gait, Balance,Safety Rehab Potential Rehab Potential Good Equipment Needs Assistive Devices Rolling / Wheeled Walker Plan PT Intervention Plan Bed Mobility,Transfers,Gait, Balance,Safety,Therapeutic Exercise Other Intervention Plan 1-2 times PT Plan Frequency Daily Duration LOS Discharge Goals Bed Transfer Ability Supervision/Stand by Sit to Stand Chair Transfer Ability Supervision/Stand by Ambulation Assistive Device Rolling Walker Ambulation Distance (feet) 100 Discharge Plan PT Discharge Plan Initial physical therapy evaluation performed. Patient presents below baseline at this time in functional mobility, transfers, gait, and strength. Pt would benefit from skilled PT while at [facility] to prevent further functional decline and maximize safety with mobility. Pt safe to d/c home when deemed medically necessary d/t current level of mobility, home set-up, and family support. PT recommending outpatient PT services to address deficits. Eval Complexity Eval Charge Codes 07122 - Moderate Complexity PHYSICIAN CERTIFICATION: I certify the specified therapy services for Rodolfo Up are required, authorized, and reviewed every 30 days.
[2024-07-08 15:45] VITALS: BP 138/73; PULSE 72; RESP 20; TEMP 37.6; O2SAT 94
--- NOTE | 2024-07-08 18:29 | PC.NURSE ---
aox4, continues to require 2lnc for o2 support. did ambulate in hallway with therapy. has required pain medication at frequent intervals today. ng tube remains to clws. patient asleep in bed at time of writing.
[2024-07-08 20:00] VITALS: BP 129/73; PULSE 79; RESP 16; TEMP 36.9; O2SAT 97
[2024-07-08] MEDS: AMINO ACID 5% IV (20:40)
[2024-07-08] MEDS: [UNRECOGNIZED DRUG - OTHER] IV (20:40)
[2024-07-08] MEDS: DEX IV (20:40)
[2024-07-08] MEDS: MELATONIN 5MG TABLET 10 MG PO (20:40)
[2024-07-08] MEDS: KETOROLAC 30MG/ML VIAL 15 MG IV (20:40)
[2024-07-09 00:14] LABS: POC Glucose,Bedside 160 (70-110)
--- NOTE | 2024-07-09 02:09 | PC.NURSE ---
TPN INFUSING TO PICC LINE RUE. TOLERATING WELL. 02 AT 2.5 L NC, 02 SAT 95%. N/G TO CONT LWS, SECRETIONS DARK GREEN. SCANT BOWEL SOUNDS . NOT PASSING GAS. NO BM. RENAE INTACT TO MIDLINE INCISION, NATE. INCISION APPROXIMATED. NOW POST-OP DAY 4. PAIN CONTROLLED WITH TORADOL IV AND DILAUDID IV.
[2024-07-09 04:00] VITALS: BP 122/58; PULSE 68; RESP 16; TEMP 37.1; O2SAT 95; BMI 27.8
[2024-07-09] MEDS: METOCLOPRAMIDE HCL 10MG/2ML VIAL 5 MG IVP ×4 (05:21→22:45)
[2024-07-09] MEDS: HYDROMORPHONE 2MG/ML SYRINGE 1 MG IV ×2 (05:26→13:24)
[2024-07-09 05:38] LABS: POC Glucose,Bedside 135 (70-110)
[2024-07-09 06:49] LABS: INR 0.95 (0.9-1.1); Prothrombin Time 10.7 seconds (10.1-12.5)
[2024-07-09 06:50] LABS: Basophils % 0.3 % (0.1-2.0); Eosinophils # 0.4 K/mm3 (0.0-0.4); Eosinophils % 5.5 % (0.1-12.0); Hematocrit 32.1 % (42.0-52.0); Lymphocytes % 16.2 % (10-50); Mean Corpuscular Hemoglobin 30.2 pg (27.0-31.2); Mean Corpuscular Volume 97.1 fl (80-94); Mean Platelet Volume 8.8 fl (7.4-10.4); Monocytes # 0.4 K/mm3 (0.1-1.0); Monocytes % 6.8 % (1.7-9.3); Neutrophils # 4.6 K/mm3 (1.8-7.8); Neutrophils % 71.3 % (37.0-80.0); Platelet Count 372 K/mm3 (142-424); Red Cell Distribution Width 13.8 % (11.5-17.5); White Blood Count 6.5 K/mm3 (4.8-10.8)
[2024-07-09 07:02] LABS: Albumin Level 2.8 g/dl (3.5-5.0); Chloride 102 mmol/L (98-107); Potassium 3.9 mmoL/L (3.5-5.1); Sodium 135 mmol/L (136-145)
[2024-07-09 07:05] LABS: Alanine Aminotransferase 104 U/L (12-78); Alkaline Phosphatase 81 U/L (38-126); Anion Gap 6.9 mEq/L (5-15); Aspartate Amino Transferase 100 U/L (17-59); Bilirubin,Total 0.7 mg/dl (0.2-1.3); Blood Urea Nitrogen 21 mg/dl (9-20); Carbon Dioxide 30 mmol/L (22.0-30.0); Creatinine Clearance Estimated 130 mL/min (50-200); Estimated Glomerular Filt Rate 115 ml/min (>60); GFR (African American) 140 ML/MIN (>60); Globulin 2.9 g/dL (1.3-3.2); Total Protein,Serum 5.7 g/dl (6.3-8.2)
[2024-07-09 07:06] LABS: Calcium 8.1 mg/dl (8.4-10.2); Chol/HDL Ratio 5.9 (1-3.5); Cholesterol 94 mg/dl (140-200); Glucose 133 mg/dl (74-100); HDL Cholesterol 16 mg/dl (40-60); Magnesium 2.2 mg/dl (1.6-2.3); Phosphorous 4.4 mg/dl (2.5-4.5); Triglycerides 93 mg/dl (30-150); VLDL Cholesterol 19 mg/dL (0-40)
[2024-07-09 07:17] LABS: Direct LDL Cholesterol 52.86 mg/dL (100-129)
[2024-07-09 07:24] LABS: Activated Partial Thrombo Time 25.9 seconds (22.8-30.6)
--- NOTE | 2024-07-09 07:43 | EXP.SURG.PN ---
Subjective Patient reports: no new complaints and flatus Narrative: He reports a very small amount of gas Exam Data for Last 24 hours Vital signs and Labs for Last 24 Hours: Temp Pulse Resp BP Pulse Ox O2 Del Method O2 Flow Rate 98.8 F 68 16 122/58 L 95 Nasal Cannula 2 07/09/24 04:00 07/09/24 04:00 07/09/24 04:00 07/09/24 04:00 07/09/24 04:00 07/09/24 06:30 07/09/24 06:30 FiO2 2 07/06/24 14:00 Laboratory Results - last 24 hr 07/08/24 13:45: POC Glucose 107 07/09/24 00:07: POC Glucose 160 H 07/09/24 05:32: POC Glucose 135 H 07/09/24 06:10: WBC 6.5 D, RBC 3.30 L, Hgb 10.0 L, Hct 32.1 L, MCV 97.1 H, MCH 30.2, MCHC 31.0 L, RDW 13.8, Plt Count 372 D, MPV 8.8, Neut % (Auto) 71.3, Lymph % (Auto) 16.2, [place] % (Auto) 6.8, Eos % (Auto) 5.5, Baso % (Auto) 0.3, Neut # (Auto) 4.6, Lymph # (Auto) 1.0, [place] # (Auto) 0.4, Eos # (Auto) 0.4, Baso # (Auto) 0.0, PT 10.7, INR 0.95, APTT 25.9, Sodium 135 L, Potassium 3.9, Chloride 102, Carbon Dioxide 30, Anion Gap 6.9, BUN 21 H, Creatinine 0.70, Estimated Creat Clear 130, Estimated GFR 115, Est GFR ( Amer) 140, Glucose 133 H, Calcium 8.1 L, Phosphorus 4.4 D, Magnesium 2.2 D, Total Bilirubin 0.7, AST 100 H D, ALT 104 H D, Alkaline Phosphatase 81, Total Protein 5.7 L, Albumin 2.8 L, Globulin 2.9, Albumin/Globulin Ratio 1.0 L, Triglycerides 93, Cholesterol 94 L, LDL Cholesterol Direct 52.86 L, VLDL Cholesterol 19, HDL Cholesterol 16 L, Cholesterol/HDL Ratio 5.9 H I & O for Last 24 hours: Intake & Output 07/06/24 07/07/24 07/08/24 07/09/24 11:59 11:59 11:59 11:59 Intake Total 3750 / 3750 2125 / 2125 3303 / 3303 4574 / 4574 Output Total 150 / 150 2605 / 2605 3400 / 3400 2200 / 2200 Balance 3600 / 3600 -480 / -480 -97 / -97 2374 / 2374 Weight 181 lb 3.2 oz 181 lb 3.202 oz 182 lb 1.6 oz 177 lb 12.8 oz Constitutional Constitutional: no acute distress *Routine Respiratory Exam Respiratory: Absent respiratory distress *Routine Cardiovascular Exam Cardiovascular: Absent tachycardia *Routine Abdominal Exam Abdominal: Present soft Progress Note: A&P Assessment and plan (1) Ileus, postoperative: Status: Acute (2) S/P exploratory laparotomy: Status: Inactive (3) CAD (coronary artery disease), [place] coronary artery: Status: Acute (4) SBO (small bowel obstruction): Status: Acute Assessment and Plan Assessment and Plan for All Diagnoses:: Overall, doing fairly well postoperative day 4 status post repeat exploratory laparotomy with repeat small bowel resection. He reports a small amount of gas . Continue nasogastric decompression for now (slowly implement drain bag trials) Continue to increase ambulation Await more robust return of bowel function
[2024-07-09 08:00] VITALS: BP 121/56; PULSE 61; RESP 20; TEMP 36.7; O2SAT 97
[2024-07-09] MEDS: ENOXAPARIN 40MG/0.4ML SYRINGE 40 MG SQ (08:17)
[2024-07-09] MEDS: FUROSEMIDE 40MG/4ML VIAL 40 MG IV (08:17)
[2024-07-09] MEDS: SIMETHICONE 40MG/0.6ML DROPS; 30ML BOTTLE 2.4 ML PO ×3 (08:17→20:36)
--- NOTE | 2024-07-09 08:46 | DIET.NUTRFU ---
Reviewed labs and TPN with pharmacy via phone, will continue current TPN until BM. Liver enzymes elevated, labs ordered for tomorrow. Patient is receiving pain meds often which maybe slowing bowels down, he is also post sx 3 days, anesthesia can slow bowels also. Patient reported very small amount of gas to sx this AM. He continues to be mobile, walking around.
[2024-07-09] MEDS: KETOROLAC 30MG/ML VIAL 15 MG IV ×2 (10:40→19:47)
[2024-07-09 11:40] LABS: POC Glucose,Bedside 142 (70-110)
[2024-07-09] MEDS: AA 5 %/CALCIUM/LYTES/DEXT 20 % 1,000 ML 65 ML IV (12:36)
[2024-07-09] MEDS: ERTAPENEM SODIUM 1 GM in 0.9 % SODIUM CHLORIDE 50 ML IV (12:36)
[2024-07-09] MEDS: FAT EMULSIONS 250 ML 60 ML IV (13:16)
--- NOTE | 2024-07-09 15:09 | P.PN_ITS ---
Subjective *Date: 07/09/24 *Time: 15:09 Interval history: Had 1 episode of flatus overnight. Says his stomach feels little bit different today. Still quite sore. No fevers overnight. Stable on room air. Responding well to diuresis. Fluid neutral yesterday. Still 4.6 L positive since admission. Medical Exam Vital signs and Labs for Last 24 Hours: Vital Signs Temp Pulse Resp BP Pulse Ox O2 Del Method O2 Flow Rate 07/09/24 14:59 Room Air 07/09/24 13:00 Room Air 07/09/24 10:52 Room Air 07/09/24 09:00 Room Air 07/09/24 08:00 Nasal Cannula 2.5 07/09/24 08:00 98.1 F 61 20 121/56 L 97 Room Air 07/09/24 06:30 Nasal Cannula 2 07/09/24 05:00 Nasal Cannula 2.5 07/09/24 04:00 98.8 F 68 16 122/58 L 95 Nasal Cannula 2.5 07/09/24 02:54 Nasal Cannula 2.5 07/09/24 00:54 Nasal Cannula 2.5 07/08/24 23:00 Nasal Cannula 2.5 07/08/24 21:00 Nasal Cannula 2.5 07/08/24 20:00 97 Nasal Cannula 2.5 07/08/24 20:00 98.4 F 79 16 129/73 97 Nasal Cannula 2.5 07/08/24 17:00 Nasal Cannula 2 07/08/24 15:45 99.6 F 72 20 138/73 94 L Room Air Intake and Output 07/08/24 07/09/24 07/09/24 23:59 07:59 15:59 Intake Total 4574 / 4574 Output Total 525 / 4575 1250 / 2825 1575 / 2825 Balance -525 / 3004 3324 / 1749 -1575 / 1749 Intake: Intake, Oral Amount 120 / 120 Intake, Total IV Amount 4454 / 4454 Fat Emulsions 250 ml @ 60 mls/ 250 / 250 hr IV 1400 [facility] Rx#:[id number] Zinc/Copper/Megan/Chromic Chl 4204 / 4204 1 ml Mvi, Adult No.1 with Vit K 10 ml In Aa 5 %/Calcium/Lytes/ Dext 20 % 1,000 ml @ 65 mls/hr IV .[id number] ONE Rx#:[id number] Output: Output, Urine Amount 525 / 4275 650 / 2225 1575 / 2225 Output, Gastric Drainage Amount 600 / 600 Right Nare 600 / 600 Other: Number of Unmeasured Voids 1 0 1 Weight 80.649 kg Patient Weight 07/09/24 23:59 Weight 80.649 kg Laboratory Results - last 24 hr 07/09/24 00:07: POC Glucose 160 H 07/09/24 05:32: POC Glucose 135 H 07/09/24 06:10: WBC 6.5 D, RBC 3.30 L, Hgb 10.0 L, Hct 32.1 L, MCV 97.1 H, MCH 30.2, MCHC 31.0 L, RDW 13.8, Plt Count 372 D, MPV 8.8, Neut % (Auto) 71.3, Lymph % (Auto) 16.2, [place] % (Auto) 6.8, Eos % (Auto) 5.5, Baso % (Auto) 0.3, Neut # (Auto) 4.6, Lymph # (Auto) 1.0, [place] # (Auto) 0.4, Eos # (Auto) 0.4, Baso # (Auto) 0.0, PT 10.7, INR 0.95, APTT 25.9, Sodium 135 L, Potassium 3.9, Chloride 102, Carbon Dioxide 30, Anion Gap 6.9, BUN 21 H, Creatinine 0.70, Estimated Creat Clear 130, Estimated GFR 115, Est GFR ( Amer) 140, Glucose 133 H, Calcium 8.1 L, Phosphorus 4.4 D, Magnesium 2.2 D, Total Bilirubin 0.7, AST 100 H D, ALT 104 H D, Alkaline Phosphatase 81, Total Protein 5.7 L, Albumin 2.8 L, Globulin 2.9, Albumin/Globulin Ratio 1.0 L, Triglycerides 93, Cholesterol 94 L, LDL Cholesterol Direct 52.86 L, VLDL Cholesterol 19, HDL Cholesterol 16 L, Cholesterol/HDL Ratio 5.9 H 07/09/24 11:32: POC Glucose 142 H I & O for Labs for Last 24 Hours: Intake & Output 07/06/24 07/07/24 07/08/24 07/09/24 23:59 23:59 23:59 23:59 Intake Total 400 / 400 177 / 2024 3303 / 7579 4574 / 4574 Output Total 1075 / 1655 1530 / 1530 4350 / 4575 2825 / 2825 Balance -675 / -1255 245 / 495 -1047 / 3004 1749 / 1749 Weight 82.191 kg 82.191 kg 82.599 kg 80.649 kg Constitutional: Present no acute distress, average body habitus and cooperative Head: Present atraumatic and normocephalic ENT: Present normal exam Comment:: NG in nose Respiratory: Present CTA bilaterally; Absent rhonchi, wheezes or crackles Cardiac: Present Reg Rate and Rhythm GI: Present soft, tenderness (Diffuse, worse over surgical incisions) and hypoactive bowel sounds (But improved activity today); Absent distention Skin: Present intact; Absent cyanosis Neuro: Present alert, awake, oriented x 3 and moves all extremities Assessment and Plan *Assessment and plan (1) Bacteremia: Status: Acute Category: Medical Code(s): R78.81 - Bacteremia (2) Ileus, postoperative: Status: Acute Category: Medical Code(s): K91.89 - Other postprocedural complications and disorders of digestive system; K56.7 - Ileus, unspecified (3) Diarrhea: Status: Acute Category: Medical Code(s): R19.7 - Diarrhea, unspecified (4) S/P exploratory laparotomy: Status: Inactive Category: Surgical Code(s): Z98.890 - Other specified postprocedural states (5) CAD (coronary artery disease), [place] coronary artery: Status: Acute Qualifiers: [place] vs. transplanted heart: [place] heart Associated angina: unspecified whether angina present Qualified Code(s): I25.10 - Atherosclerotic heart disease of [place] coronary artery without angina pectoris Category: Medical Code(s): I25.10 - Atherosclerotic heart disease of [place] coronary artery without angina pectoris (6) History of heart attack: Status: Inactive Category: Medical Code(s): I25.2 - Old myocardial infarction (7) Depression: Status: Acute Qualifiers: Depression Type: unspecified Qualified Code(s): F32.9 - Major depressive disorder, single episode, unspecified Category: Medical Code(s): F32.9 - Major depressive disorder, single episode, unspecified Plan 58-year-old male with PMHx of CAD s/p stent, open appendectomy, and recent bowel resection due to small bowel obstruction. Presented to surgery clinic with persistent nausea and vomiting, dehiscence of proximal portion of the surgical wound, and diarrhea. Postop day 1. Status post repeat surgery yesterday with takedown of significant adhesions. Inflammation of anastomosis. Continues to require inpatient management. Tolerating antibiotics. 1 episode of flatus overnight. Cautious optimism today. Surgery continue to assist with care. Problems addressed as follows: Postop ileus - Initial operation 06/17 for bowel obstruction with removal of part of small bowel and end-to-end anastomosis. Repeat surgery yesterday with exploratory laparotomy. Takedown of numerous adhesions. Found to have significant inflammation of the abdominal cavity. - Discussed case with surgery this morning. Continue NPO. Continuing TPN at this time. Will monitor for bowel movements and flatus. - Zofran as needed every 8 hours for nausea - Toradol 15 mg as needed every 6 hours for moderate pain. Morphine 4 mg as needed for severe pain every 4 hours. Has received at least 6 doses of Dilaudid in the past 24 hours. Will de-escalate and transition to morphine only. -NG remains in place to low wall suction -Kidney function normal with BUN 21, creatinine 0.7 -Close monitoring of electrolytes on TPN. Potassium 2.9, magnesium 2.2, phosphorus 4.4, calcium 8.1. Triglycerides 93, LDL 52. Slight bump in liver enzymes with bilirubin 0.7, AST 100, ALT 104. Klebsiella and Citrobacter bacteremia -White count improved to 6.7. repeat CBC, CMP, magnesium ordered for the morning -Continue ertapenem 1 g daily. Anticipate 10 days of antibiotics Chronic conditions CAD s/p stent, Hx of heart attack depression Holding medications while NPO. Will resume when appropriate Holding Plavix Oxygen requirement overnight, concern for volume overload given extensive IV fluids with TPN and IV fluid yesterday. Diurese x 1 Lasix 40 mg IV. Goal negative fluid status today. SCD for DVT ppx Full code TPN Therapy evaluating today due to deconditioning.
--- NOTE | 2024-07-09 15:15 | P.PN_ITS ---
Subjective *Date: 07/09/24 *Time: 15:15 Medical Exam Vital signs and Labs for Last 24 Hours: Vital Signs Temp Pulse Resp BP Pulse Ox O2 Del Method O2 Flow Rate 07/09/24 14:59 Room Air 07/09/24 13:00 Room Air 07/09/24 10:52 Room Air 07/09/24 09:00 Room Air 07/09/24 08:00 Nasal Cannula 2.5 07/09/24 08:00 98.1 F 61 20 121/56 L 97 Room Air 07/09/24 06:30 Nasal Cannula 2 07/09/24 05:00 Nasal Cannula 2.5 07/09/24 04:00 98.8 F 68 16 122/58 L 95 Nasal Cannula 2.5 07/09/24 02:54 Nasal Cannula 2.5 07/09/24 00:54 Nasal Cannula 2.5 07/08/24 23:00 Nasal Cannula 2.5 07/08/24 21:00 Nasal Cannula 2.5 07/08/24 20:00 97 Nasal Cannula 2.5 07/08/24 20:00 98.4 F 79 16 129/73 97 Nasal Cannula 2.5 07/08/24 17:00 Nasal Cannula 2 07/08/24 15:45 99.6 F 72 20 138/73 94 L Room Air Intake and Output 07/08/24 07/09/24 07/09/24 23:59 07:59 15:59 Intake Total 4574 / 4574 Output Total 525 / 4575 1250 / 2825 1575 / 2825 Balance -525 / 3004 3324 / 1749 -1575 / 1749 Intake: Intake, Oral Amount 120 / 120 Intake, Total IV Amount 4454 / 4454 Fat Emulsions 250 ml @ 60 mls/ 250 / 250 hr IV 1400 [facility] Rx#:[id number] Zinc/Copper/Megan/Chromic Chl 4204 / 4204 1 ml Mvi, Adult No.1 with Vit K 10 ml In Aa 5 %/Calcium/Lytes/ Dext 20 % 1,000 ml @ 65 mls/hr IV .[id number] ONE Rx#:[id number] Output: Output, Urine Amount 525 / 4275 650 / 2225 1575 / 2225 Output, Gastric Drainage Amount 600 / 600 Right Nare 600 / 600 Other: Number of Unmeasured Voids 1 0 1 Weight 80.649 kg Patient Weight 08/16/24 23:59 Weight 80.649 kg Laboratory Results - last 24 hr 07/09/24 00:07: POC Glucose 160 H 07/09/24 05:32: POC Glucose 135 H 07/09/24 06:10: WBC 6.5 D, RBC 3.30 L, Hgb 10.0 L, Hct 32.1 L, MCV 97.1 H, MCH 30.2, MCHC 31.0 L, RDW 13.8, Plt Count 372 D, MPV 8.8, Neut % (Auto) 71.3, Lymph % (Auto) 16.2, [place] % (Auto) 6.8, Eos % (Auto) 5.5, Baso % (Auto) 0.3, Neut # (Auto) 4.6, Lymph # (Auto) 1.0, [place] # (Auto) 0.4, Eos # (Auto) 0.4, Baso # (Auto) 0.0, PT 10.7, INR 0.95, APTT 25.9, Sodium 135 L, Potassium 3.9, Chloride 102, Carbon Dioxide 30, Anion Gap 6.9, BUN 21 H, Creatinine 0.70, Estimated Creat Clear 130, Estimated GFR 115, Est GFR ( Amer) 140, Glucose 133 H, Calcium 8.1 L, Phosphorus 4.4 D, Magnesium 2.2 D, Total Bilirubin 0.7, AST 100 H D, ALT 104 H D, Alkaline Phosphatase 81, Total Protein 5.7 L, Albumin 2.8 L, Globulin 2.9, Albumin/Globulin Ratio 1.0 L, Triglycerides 93, Cholesterol 94 L, LDL Cholesterol Direct 52.86 L, VLDL Cholesterol 19, HDL Cholesterol 16 L, Cholesterol/HDL Ratio 5.9 H 07/09/24 11:32: POC Glucose 142 H I & O for Labs for Last 24 Hours: Intake & Output 07/06/24 07/07/24 07/08/24 07/09/24 23:59 23:59 23:59 23:59 Intake Total 400 / 400 1774 / 2024 3303 / 7579 9314 / 4574 Output Total 1075 / 1655 1530 / 1530 4350 / 4575 2825 / 2825 Balance -675 / -1255 245 / 495 -1047 / 3004 1749 / 1749 Weight 82.191 kg 82.191 kg 82.599 kg 80.649 kg The patient's infection will respond to the chosen ABx?: Yes (C. BRAAKII/K. PNEUMONIAE SENSITIVE TO INVANZ. AFEBRILE OVER 24HR.) Is the patient receiving the right drug, dose, and route?: Yes Could a more targeted ABx be ordered?: No
[2024-07-09] MEDS: HYDROMORPHONE 2MG/ML SYRINGE 0.5 MG IV ×2 (17:49→21:43)
[2024-07-09 18:21] LABS: POC Glucose,Bedside 131 (70-110)
--- NOTE | 2024-07-09 18:44 | PC.NURSE ---
Pt has done well this afternoon after I took over pt's care. pt and his states he is in better spirits this afternoon. He states that he is having more pain after this surgery compared to his previous one. NG remains at 62 at the [facility].
[2024-07-09 20:00] VITALS: BP 116/81; PULSE 72; RESP 18; TEMP 36.9; O2SAT 92
[2024-07-09] MEDS: MELATONIN 5MG TABLET 10 MG PO (20:36)
[2024-07-09 22:57] LABS: POC Glucose,Bedside 125 (70-110)
--- NOTE | 2024-07-10 02:55 | PC.NURSE ---
Patient and his spouse reports patient passing large amts of gas. Feels much better.
[2024-07-10] MEDS: HYDROMORPHONE 2MG/ML SYRINGE 0.5 MG IV ×5 (03:11→22:04)
--- NOTE | 2024-07-10 03:33 | PC.NURSE ---
PATIENT STILL C/O INCISION PAIN 6-06/02. PAIN CONTROLLED WITH SMALL DOSES DILAUDID AND TORADOL. N/G TO CONT LWS, SECRETIONS SMALL AMTS NOW, DARK GREEN. VITAL SIGNS STABLE, AFEBRILE. 92% ON ROOM AIR. SPOUSE AT BED SIDE. TPN AT 65ML/HR/PUMP TO PICC LINE CARMENZA. SITE CLEAR.
[2024-07-10 04:00] VITALS: BP 107/64; PULSE 66; RESP 16; TEMP 36.7; O2SAT 92; BMI 27.6
[2024-07-10] MEDS: METOCLOPRAMIDE HCL 10MG/2ML VIAL 5 MG IVP ×4 (04:09→23:22)
[2024-07-10] MEDS: AA 5 %/CALCIUM/LYTES/DEXT 20 % 1,000 ML 65 ML IV (04:10)
[2024-07-10 04:23] LABS: POC Glucose,Bedside 127 (70-110)
[2024-07-10 05:06] LABS: POC Glucose,Bedside 121 (70-110)
[2024-07-10 05:06] LABS: POC Glucose,Bedside 169 (70-110)
[2024-07-10 05:06] LABS: POC Glucose,Bedside 142 (70-110)
[2024-07-10 05:06] LABS: POC Glucose,Bedside 191 (70-110)
[2024-07-10 07:24] LABS: Basophils % 0.5 % (0.1-2.0); Eosinophils # 0.2 K/mm3 (0.0-0.4); Eosinophils % 3.7 % (0.1-12.0); Hematocrit 33.1 % (42.0-52.0); Hemoglobin 10.6 g/dL (14.1-18.0); Lymphocytes # 1.4 K/mm3 (0.7-4.5); Mean Corpuscular HGB Conc 31.9 g/dL (31.8-35.4); Mean Corpuscular Hemoglobin 30.7 pg (27.0-31.2); Mean Corpuscular Volume 96.1 fl (80-94); Mean Platelet Volume 8.9 fl (7.4-10.4); Monocytes # 0.5 K/mm3 (0.1-1.0); Monocytes % 7.2 % (1.7-9.3); Neutrophils # 4.3 K/mm3 (1.8-7.8); Neutrophils % 66.6 % (37.0-80.0); Platelet Count 385 K/mm3 (142-424); Red Blood Count 3.44 M/mm3 (4.60-6.20); Red Cell Distribution Width 13.7 % (11.5-17.5); White Blood Count 6.5 K/mm3 (4.8-10.8)
[2024-07-10] MEDS: KETOROLAC 30MG/ML VIAL 15 MG IV ×3 (07:35→20:45)
[2024-07-10 07:41] LABS: Alanine Aminotransferase 249 U/L (12-78); Albumin Level 2.9 g/dl (3.5-5.0); Albumin/Globulin Ratio 0.9 (1.1-1.8); Alkaline Phosphatase 100 U/L (38-126); Aspartate Amino Transferase 192 U/L (17-59); Bilirubin,Total 0.5 mg/dl (0.2-1.3); Blood Urea Nitrogen 25 mg/dl (9-20); Calcium 8.7 mg/dl (8.4-10.2); Carbon Dioxide 32 mmol/L (22.0-30.0); Chloride 100 mmol/L (98-107); Creatinine Clearance Estimated 128 mL/min (50-200); Estimated Glomerular Filt Rate 115 ml/min (>60); GFR (African American) 140 ML/MIN (>60); Globulin 3.3 g/dL (1.3-3.2); Glucose 135 mg/dl (74-100); Sodium 136 mmol/L (136-145); Total Protein,Serum 6.2 g/dl (6.3-8.2)
[2024-07-10 08:00] VITALS: BP 121/67; PULSE 59; RESP 17; TEMP 36.6; O2SAT 94
[2024-07-10 08:17] LABS: Magnesium 2.2 mg/dl (1.6-2.3); Phosphorous 4.9 mg/dl (2.5-4.5)
[2024-07-10 08:31] LABS: Chol/HDL Ratio 7.5 (1-3.5); Cholesterol 97 mg/dl (140-200); HDL Cholesterol 13 mg/dl (40-60); Triglycerides 101 mg/dl (30-150); VLDL Cholesterol 20 mg/dL (0-40)
[2024-07-10 08:41] LABS: Direct LDL Cholesterol 51.48 mg/dL (100-129)
[2024-07-10] MEDS: ENOXAPARIN 40MG/0.4ML SYRINGE 40 MG SQ (08:57)
[2024-07-10] MEDS: FUROSEMIDE 40MG/4ML VIAL 40 MG IV (08:58)
[2024-07-10] MEDS: SIMETHICONE 40MG/0.6ML DROPS; 30ML BOTTLE 2.4 ML PO ×3 (08:58→20:45)
--- NOTE | 2024-07-10 09:53 | P.PN_ITS ---
Subjective *Date: 07/10/24 *Time: 09:53 Interval history: For eczema better this morning. Having significant gas overnight. No nausea or vomiting. Denies any fever. Abdominal pain slowly improving. Medical Exam Vital signs and Labs for Last 24 Hours: Vital Signs Temp Pulse Resp BP Pulse Ox O2 Del Method 07/10/24 07:42 Room Air 07/10/24 06:42 Room Air 07/10/24 04:49 Room Air 07/10/24 04:00 98.0 F 66 16 107/64 L 92 L Room Air 07/10/24 03:00 Room Air 07/10/24 01:00 Room Air 07/09/24 22:58 Room Air 07/09/24 21:00 Room Air 07/09/24 20:00 92 L Room Air 07/09/24 20:00 98.5 F 72 18 116/81 92 L Room Air 07/09/24 18:43 Room Air 07/09/24 17:00 Room Air 07/09/24 14:59 Room Air 07/09/24 13:00 Room Air 07/09/24 10:52 Room Air Intake and Output 07/09/24 07/10/24 07/10/24 23:59 07:59 15:59 Intake Total 1039 / 6015 713 / 713 Output Total 900 / 3725 800 / 800 Balance 139 / 2290 -87 / -87 Intake: Intake, Oral Amount 60 / 60 Intake, Total IV Amount 1039 / 5835 653 / 653 Aa 5 %/Calcium/Lytes/Dext 20 % 653 / 653 1,000 ml @ 65 mls/hr IV . [id number] Rx#:[id number] Fat Emulsions 250 ml @ 60 mls/ 250 / 500 hr IV 1400 [facility] Rx#:[id number] Zinc/Copper/Megan/Chromic Chl 789 / 4993 1 ml Mvi, Adult No.1 with Vit K 10 ml In Aa 5 %/Calcium/Lytes/ Dext 20 % 1,000 ml @ 65 mls/hr IV .[id number] ONE Rx#:[id number] Output: Output, Urine Amount 450 / 2675 600 / 600 Output, Gastric Drainage Amount 450 / 1050 200 / 200 Right Nare 450 / 1050 200 / 200 Other: Number of Unmeasured Voids 1 1 Weight 79.923 kg Patient Weight 07/10/24 23:59 Weight 79.923 kg Laboratory Results - last 24 hr 07/06/24 05:43: POC Glucose 191 H 07/06/24 23:36: POC Glucose 169 H 07/07/24 11:39: POC Glucose 142 H 07/08/24 17:55: POC Glucose 121 H 07/09/24 11:32: POC Glucose 142 H 07/09/24 18:05: POC Glucose 131 H 07/09/24 22:50: POC Glucose 125 H 07/10/24 04:13: POC Glucose 127 H 07/10/24 06:20: WBC 6.5, RBC 3.44 L, Hgb 10.6 L, Hct 33.1 L, MCV 96.1 H, MCH 30.7, MCHC 31.9, RDW 13.7, Plt Count 385, MPV 8.9, Neut % (Auto) 66.6, Lymph % (Auto) 22.0, [place] % (Auto) 7.2, Eos % (Auto) 3.7, Baso % (Auto) 0.5, Neut # (Auto) 4.3, Lymph # (Auto) 1.4, [place] # (Auto) 0.5, Eos # (Auto) 0.2, Baso # (Auto) 0.0, Sodium 136, Potassium 4.0, Chloride 100, Carbon Dioxide 32 H, Anion Gap 8.0, BUN 25 H, Creatinine 0.70, Estimated Creat Clear 128, Estimated GFR 115, Est GFR ( Amer) 140, Glucose 135 H, Calcium 8.7, Phosphorus 4.9 H, Magnesium 2.2, Total Bilirubin 0.5, AST 192 H D, ALT 249 H D, Alkaline Phosphatase 100, Total Protein 6.2 L, Albumin 2.9 L, Globulin 3.3 H, Albumin/Globulin Ratio 0.9 L, Triglycerides 101, Cholesterol 97 L, LDL Cholesterol Direct 51.48 L, VLDL Cholesterol 20, HDL Cholesterol 13 L, Cholesterol/HDL Ratio 7.5 H I & O for Labs for Last 24 Hours: Intake & Output 07/07/24 07/08/24 07/09/24 07/10/24 23:59 23:59 23:59 23:59 Intake Total 1774 / 2024 3303 / 7579 5613 / 6015 713 / 713 Output Total 1530 / 1530 4350 / 4575 3725 / 3725 800 / 800 Balance 245 / 495 -1047 / 3004 1888 / 2290 -87 / -87 Weight 82.191 kg 82.599 kg 80.649 kg 79.923 kg Constitutional: Present no acute distress, average body habitus and cooperative Head: Present atraumatic and normocephalic ENT: Present normal exam Comment:: NG in nose Respiratory: Present CTA bilaterally; Absent rhonchi, wheezes or crackles Cardiac: Present Reg Rate and Rhythm GI: Present soft, tenderness (worse over surgical incisions, interval improvement) and normal bowel sounds; Absent distention Skin: Present intact; Absent cyanosis Neuro: Present alert, awake, oriented x 3 and moves all extremities Assessment and Plan *Assessment and plan (1) Bacteremia: Status: Acute Category: Medical Code(s): R78.81 - Bacteremia (2) Ileus, postoperative: Status: Acute Category: Medical Code(s): K91.89 - Other postprocedural complications and disorders of digestive system; K56.7 - Ileus, unspecified (3) Diarrhea: Status: Acute Category: Medical Code(s): R19.7 - Diarrhea, unspecified (4) S/P exploratory laparotomy: Status: Inactive Category: Surgical Code(s): Z98.890 - Other specified postprocedural states (5) CAD (coronary artery disease), [place] coronary artery: Status: Acute Qualifiers: [place] vs. transplanted heart: [place] heart Associated angina: unspecified whether angina present Qualified Code(s): I25.10 - Atherosclerotic heart disease of [place] coronary artery without angina pectoris Category: Medical Code(s): I25.10 - Atherosclerotic heart disease of [place] coronary artery without angina pectoris (6) History of heart attack: Status: Inactive Category: Medical Code(s): I25.2 - Old myocardial infarction (7) Depression: Status: Acute Qualifiers: Depression Type: unspecified Qualified Code(s): F32.9 - Major depressive disorder, single episode, unspecified Category: Medical Code(s): F32.9 - Major depressive disorder, single episode, unspecified Plan 58-year-old male with PMHx of CAD s/p stent, open appendectomy, and recent bowel resection due to small bowel obstruction. Presented to surgery clinic with persistent nausea and vomiting, dehiscence of proximal portion of the surgical wound, and diarrhea. Postop day 1. Status post repeat surgery yesterday with takedown of significant adhesions. Inflammation of anastomosis. Continues to require inpatient management. Tolerating antibiotics. Multiple episodes of flatus overnight. Patient feeling a little bit better. Surgery continues to assist with care. Will consider some sips and chips today. Continues to require inpatient management. Problems addressed as follows: Postop ileus - Initial operation 06/17 for bowel obstruction with removal of part of small bowel and end-to-end anastomosis. Repeat surgery yesterday with exploratory laparotomy. Takedown of numerous adhesions. Found to have significant inflammation of the abdominal cavity. - Discussed case with surgery this morning. Sips and chips today. Will continue TPN today. Monitoring for bowel movements. Having flatus. NG to remain in place to drain bag. - Zofran as needed every 8 hours for nausea - Toradol 15 mg as needed every 6 hours for moderate pain. Continue Dilaudid 0.5 mg as needed every 3 hours for severe breakthrough pain. - Kidney function normal with BUN 25, creatinine 0.7 - Close monitoring of electrolytes on TPN. Potassium 4.0, Magnesium 2.2, phosphorus 4.9, calcium 8.7. Liver enzymes slightly bumped with AST 192, ALT 249. Klebsiella and Citrobacter bacteremia -White count remains normal at 6.5. repeat CBC, CMP, magnesium ordered for the morning -Continue ertapenem 1 g daily. Anticipate 10 days of antibiotics Chronic conditions CAD s/p stent, Hx of heart attack depression Holding medications while NPO. Will resume when appropriate Holding Plavix -Continuing TPN for nutrition today. Will continue diuresis today x 1 with 40 mg IV Lasix. On room air for the past 48 hours. SCD for DVT ppx Full code TPN Therapy continuing to work patient daily.
--- NOTE | 2024-07-10 10:00 | EXP.SURG.PN ---
Subjective Patient reports: flatus and no bowel movement Narrative: He reports a fairly large volume of flatus. Exam Data for Last 24 hours Vital signs and Labs for Last 24 Hours: Temp Pulse Resp BP Pulse Ox O2 Del Method O2 Flow Rate 98.0 F 66 16 107/64 L 92 L Room Air 2.5 07/10/24 04:00 07/10/24 04:00 07/10/24 04:00 07/10/24 04:00 07/10/24 04:00 07/10/24 07:42 07/09/24 08:00 FiO2 2 07/06/24 14:00 Laboratory Results - last 24 hr 07/06/24 05:43: POC Glucose 191 H 07/06/24 23:36: POC Glucose 169 H 07/07/24 11:39: POC Glucose 142 H 07/08/24 17:55: POC Glucose 121 H 07/09/24 11:32: POC Glucose 142 H 07/09/24 18:05: POC Glucose 131 H 07/09/24 22:50: POC Glucose 125 H 07/10/24 04:13: POC Glucose 127 H 07/10/24 06:20: WBC 6.5, RBC 3.44 L, Hgb 10.6 L, Hct 33.1 L, MCV 96.1 H, MCH 30.7, MCHC 31.9, RDW 13.7, Plt Count 385, MPV 8.9, Neut % (Auto) 66.6, Lymph % (Auto) 22.0, [place] % (Auto) 7.2, Eos % (Auto) 3.7, Baso % (Auto) 0.5, Neut # (Auto) 4.3, Lymph # (Auto) 1.4, [place] # (Auto) 0.5, Eos # (Auto) 0.2, Baso # (Auto) 0.0, Sodium 136, Potassium 4.0, Chloride 100, Carbon Dioxide 32 H, Anion Gap 8.0, BUN 25 H, Creatinine 0.70, Estimated Creat Clear 128, Estimated GFR 115, Est GFR ( Amer) 140, Glucose 135 H, Calcium 8.7, Phosphorus 4.9 H, Magnesium 2.2, Total Bilirubin 0.5, AST 192 H D, ALT 249 H D, Alkaline Phosphatase 100, Total Protein 6.2 L, Albumin 2.9 L, Globulin 3.3 H, Albumin/Globulin Ratio 0.9 L, Triglycerides 101, Cholesterol 97 L, LDL Cholesterol Direct 51.48 L, VLDL Cholesterol 20, HDL Cholesterol 13 L, Cholesterol/HDL Ratio 7.5 H I & O for Last 24 hours: Intake & Output 07/07/24 07/08/24 07/09/24 07/10/24 11:59 11:59 11:59 11:59 Intake Total 2125 / 2125 3303 / 3303 4574 / 4574 1752 / 1752 Output Total 2605 / 2605 3400 / 3400 3650 / 3650 1825 / 1825 Balance -480 / -480 -97 / -97 924 / 924 -73 / -73 Weight 181 lb 3.202 oz 182 lb 1.6 oz 177 lb 12.8 oz 176 lb 3.2 oz Constitutional Constitutional: no acute distress *Routine Respiratory Exam Respiratory: Absent respiratory distress *Routine Cardiovascular Exam Cardiovascular: Absent tachycardia *Routine Abdominal Exam Abdominal: Present soft Comments: Incision healing without evidence of infection Progress Note: A&P Assessment and plan (1) Ileus, postoperative: Status: Acute (2) S/P exploratory laparotomy: Status: Inactive (3) SBO (small bowel obstruction): Status: Acute Assessment and Plan Assessment and Plan for All Diagnoses:: Overall, doing fairly well postoperative day 5 status post repeat exploratory laparotomy with repeat small bowel resection. He reports a ton of gas but no bowel movement yet . Continue drain bag trials Cautious clear liquids as per nursing Continue to increase ambulation Await more robust return of bowel function
[2024-07-10 12:18] LABS: POC Glucose,Bedside 135 (70-110)
[2024-07-10] MEDS: FAT EMULSIONS 250 ML 60 ML IV (14:04)
[2024-07-10] MEDS: ERTAPENEM SODIUM 1 GM in 0.9 % SODIUM CHLORIDE 50 ML IV (14:04)
[2024-07-10 16:00] VITALS: BP 122/61; PULSE 68; RESP 17; TEMP 37.1; O2SAT 97
--- NOTE | 2024-07-10 18:20 | PC.NURSE ---
PT HAS DONE WELL THIS SHIFT. NG TUBE HAS BEEN CLAMPED MOST OF THE SHIFT, HOOKED WITH SUCTION INTERMITTENTLY WITH TOTAL OUTPUT OF 500 THIS SHIFT IN THE CANISTER. PT WAS ABLE TO HAVE A SMALL BM THIS SHIFT AND IS PASSING GAS. PAIN MANAGEMENT HAS BEEN BETTER TODAY, RATING HIS PAIN SLIGHTLY LOWER THAN YESTERDAY. AMBULATED IN ROOM SEVERAL TIMES AND WAS ABLE TO SIT IN THE CHAIR FOR A WHILE. NO C/O NAUSEA OR VOMITING. HAS C/O SOME GAS PAIN AND INCISIONAL PAIN. TOLERATED SIPS OF NURSING DIRECTED CLEAR LIQUIDS WELL.VSS.
[2024-07-10 19:55] VITALS: BP 116/59; PULSE 64; RESP 16; TEMP 37.1; O2SAT 92
[2024-07-10] MEDS: MELATONIN 5MG TABLET 10 MG PO (20:44)
[2024-07-11 00:27] LABS: POC Glucose,Bedside 110 (70-110)
[2024-07-11] MEDS: ACETAMINOPHEN 500MG TAB 500 MG PO (03:21)
[2024-07-11] MEDS: HYDROMORPHONE 2MG/ML SYRINGE 0.5 MG IV ×4 (03:22→21:01)
[2024-07-11 04:00] VITALS: BP 108/63; PULSE 72; RESP 16; TEMP 36.8; O2SAT 93; BMI 27.6
[2024-07-11] MEDS: METOCLOPRAMIDE HCL 10MG/2ML VIAL 5 MG IVP ×4 (05:05→22:15)
[2024-07-11 05:48] LABS: POC Glucose,Bedside 125 (70-110)
[2024-07-11 06:00] LABS: POC Glucose,Bedside 113 (70-110)
--- NOTE | 2024-07-11 06:17 | PC.NURSE ---
Patient is A&OX4 and has tolerated room air. He has had a small BM and is passing gas. Bowel sounds hyperactive in all quadrants. Ng in place with 200ml green output this shift. He has complained of pain in incision site multiple times this shift and was treated per JAN. Pt has ambulated to the bathroom and halls independently with no issues. No complaints at his time, call light within reach.
[2024-07-11 07:10] LABS: Basophils % 0.6 % (0.1-2.0); Eosinophils # 0.2 K/mm3 (0.0-0.4); Eosinophils % 2.1 % (0.1-12.0); Hematocrit 29.5 % (42.0-52.0); Hemoglobin 10.9 g/dL (14.1-18.0); Lymphocytes # 1.5 K/mm3 (0.7-4.5); Lymphocytes % 19.2 % (10-50); Mean Corpuscular HGB Conc 36.9 g/dL (31.8-35.4); Mean Corpuscular Hemoglobin 35.1 pg (27.0-31.2); Mean Corpuscular Volume 95.2 fl (80-94); Mean Platelet Volume 8.6 fl (7.4-10.4); Monocytes # 0.4 K/mm3 (0.1-1.0); Monocytes % 5.7 % (1.7-9.3); Neutrophils # 5.6 K/mm3 (1.8-7.8); Neutrophils % 72.4 % (37.0-80.0); Platelet Count 384 K/mm3 (142-424); Red Cell Distribution Width 13.8 % (11.5-17.5); White Blood Count 7.7 K/mm3 (4.8-10.8)
[2024-07-11 07:15] LABS: Albumin Level 3.3 g/dl (3.5-5.0); Chloride 98 mmol/L (98-107); Sodium 135 mmol/L (136-145)
[2024-07-11 07:16] LABS: Potassium 4.2 mmoL/L (3.5-5.1)
[2024-07-11 07:18] LABS: Alanine Aminotransferase 338 U/L (12-78); Anion Gap 8.2 mEq/L (5-15); Aspartate Amino Transferase 225 U/L (17-59); Blood Urea Nitrogen 32 mg/dl (9-20); Carbon Dioxide 33 mmol/L (22.0-30.0); Creatinine Clearance Estimated 112 mL/min (50-200); Estimated Glomerular Filt Rate 99 ml/min (>60); GFR (African American) 120 ML/MIN (>60)
[2024-07-11 07:19] LABS: Alkaline Phosphatase 133 U/L (38-126); Bilirubin,Total 0.8 mg/dl (0.2-1.3); Calcium 8.6 mg/dl (8.4-10.2); Globulin 3.3 g/dL (1.3-3.2); Glucose 111 mg/dl (74-100); Total Protein,Serum 6.6 g/dl (6.3-8.2)
[2024-07-11 07:48] VITALS: BP 113/64; PULSE 59; RESP 19; TEMP 36.9; O2SAT 95
--- NOTE | 2024-07-11 07:48 | EXP.ACUTE.PN ---
Subjective *Date: 07/11/24 *Time: 11:05 Medical Exam Vital signs and Labs for Last 24 Hours: Vital Signs Temp Pulse Resp BP Pulse Ox O2 Del Method 07/11/24 06:38 Room Air 07/11/24 05:00 Room Air 07/11/24 04:00 98.3 F 72 16 108/63 L 93 L Room Air 07/11/24 03:00 Room Air 07/11/24 01:00 Room Air 07/11/24 00:00 Room Air 07/10/24 23:00 Room Air 07/10/24 21:00 Room Air 07/10/24 20:00 Room Air 07/10/24 19:55 98.7 F 64 16 116/59 L 92 L Room Air 07/10/24 19:00 Room Air 07/10/24 17:00 Room Air 07/10/24 16:00 98.7 F 68 17 122/61 97 Room Air 07/10/24 15:00 Room Air 07/10/24 13:00 Room Air 07/10/24 11:00 Room Air 07/10/24 09:00 Room Air 07/10/24 08:00 97.9 F 59 L 17 121/67 94 L Intake and Output 07/10/24 07/10/24 07/11/24 15:59 23:59 07:59 Intake Total 1097 / 1810 Output Total 700 / 1500 200 / 200 Balance 397 / 310 -200 / -200 Intake: Intake, Total IV Amount 1097 / 1750 Aa 5 %/Calcium/Lytes/Dext 20 % 868 / 868 1,000 ml @ 65 mls/hr IV . [id number] ONE Rx#:[id number] Fat Emulsions 250 ml @ 60 mls/ 229 / 229 hr IV 1400 [facility] Rx#:[id number] Output: Output, Urine Amount 200 / 800 Output, Gastric Drainage Amount 500 / 700 200 / 200 Right Nare 500 / 700 200 / 200 Other: Number of Unmeasured Voids 0 Number of Bowel Movements 1 Weight 79.923 kg Patient Weight 07/11/24 23:59 Weight 79.923 kg Laboratory Results - last 24 hr 07/10/24 06:20: Phosphorus 4.9 H, Magnesium 2.2, Triglycerides 101, Cholesterol 97 L, LDL Cholesterol Direct 51.48 L, VLDL Cholesterol 20, HDL Cholesterol 13 L, Cholesterol/HDL Ratio 7.5 H 07/10/24 11:59: POC Glucose 135 H 07/10/24 18:18: POC Glucose 125 H 07/11/24 00:19: POC Glucose 110 07/11/24 05:44: POC Glucose 113 H 07/11/24 06:30: WBC 7.7, RBC 3.10 L, Hgb 10.9 L, Hct 29.5 L, MCV 95.2 H, MCH 35.1 H, MCHC 36.9 H, RDW 13.8, Plt Count 384, MPV 8.6, Neut % (Auto) 72.4, Lymph % (Auto) 19.2, [place] % (Auto) 5.7, Eos % (Auto) 2.1, Baso % (Auto) 0.6, Neut # (Auto) 5.6, Lymph # (Auto) 1.5, [place] # (Auto) 0.4, Eos # (Auto) 0.2, Baso # (Auto) 0.0, Sodium 135 L, Potassium 4.2, Chloride 98, Carbon Dioxide 33 H, Anion Gap 8.2, BUN 32 H D, Creatinine 0.80, Estimated Creat Clear 112, Estimated GFR 99, Est GFR ( Amer) 120, Glucose 111 H, Calcium 8.6, Total Bilirubin 0.8, AST 225 H, ALT 338 H*, Alkaline Phosphatase 133 H, Total Protein 6.6, Albumin 3.3 L D, Globulin 3.3 H, Albumin/Globulin Ratio 1.0 L I & O for Labs for Last 24 Hours: Intake & Output 07/08/24 07/09/24 07/10/24 07/11/24 23:59 23:59 23:59 23:59 Intake Total 3303 / 7579 5613 / 6015 1810 / 1810 Output Total 4350 / 4575 3725 / 3725 1500 / 1500 200 / 200 Balance -1047 / 3004 1888 / 2290 310 / 310 -200 / -200 Weight 82.599 kg 80.649 kg 79.923 kg 79.923 kg Assessment and Plan *Assessment and plan (1) Bacteremia: Status: Acute Category: Medical Code(s): R78.81 - Bacteremia (2) Ileus, postoperative: Status: Acute Category: Medical Code(s): K91.89 - Other postprocedural complications and disorders of digestive system; K56.7 - Ileus, unspecified (3) Diarrhea: Status: Acute Category: Medical Code(s): R19.7 - Diarrhea, unspecified (4) S/P exploratory laparotomy: Status: Inactive Category: Surgical Code(s): Z98.890 - Other specified postprocedural states (5) CAD (coronary artery disease), [place] coronary artery: Status: Acute Qualifiers: [place] vs. transplanted heart: [place] heart Associated angina: unspecified whether angina present Qualified Code(s): I25.10 - Atherosclerotic heart disease of [place] coronary artery without angina pectoris Category: Medical Code(s): I25.10 - Atherosclerotic heart disease of [place] coronary artery without angina pectoris (6) History of heart attack: Status: Inactive Category: Medical Code(s): I25.2 - Old myocardial infarction (7) Depression: Status: Acute Qualifiers: Depression Type: unspecified Qualified Code(s): F32.9 - Major depressive disorder, single episode, unspecified Category: Medical Code(s): F32.9 - Major depressive disorder, single episode, unspecified Plan 58-year-old male with PMHx of CAD s/p stent, open appendectomy, and recent bowel resection due to small bowel obstruction. Presented to surgery clinic with persistent nausea and vomiting, dehiscence of proximal portion of the surgical wound, and diarrhea. Postop day 1. Status post repeat surgery yesterday with takedown of significant adhesions. Inflammation of anastomosis. Continues to require inpatient management. Tolerating antibiotics. Multiple episodes of flatus overnight. Patient feeling a little bit better. Surgery continues to assist with care. Initiating clear liquids today. Having consistent flatus and 1 bowel movement yesterday. Continues to require inpatient management. Problems addressed as follows: Postop ileus Transaminitis - Initial operation 06/17 for bowel obstruction with removal of part of small bowel and end-to-end anastomosis. Repeat surgery yesterday with exploratory laparotomy. Takedown of numerous adhesions. Found to have significant inflammation of the abdominal cavity. - Discussed case with surgery this morning. Advance diet to clears. Continue to monitor bowel function. Leave NG in place. - Zofran as needed every 8 hours for nausea - Toradol 15 mg as needed every 6 hours for moderate pain. Continue Dilaudid 0.5 mg as needed, Transitioning to every 4 hours. Received 6 doses in the past 24 hours. - Kidney function normal with BUN 32, creatinine 0.8. -Mild transaminitis, will continue to monitor off TPN. Liver enzymes bumped again today AST/ALT of 223 and 338 respectively. Klebsiella and Citrobacter bacteremia -White count remains normal at 6.5. repeat CBC, CMP, magnesium ordered for the morning -Continue ertapenem 1 g daily. Anticipate 10 days of antibiotics Chronic conditions CAD s/p stent, Hx of heart attack depression: Resume Prozac, hold Wellbutrin. Holding statin and Plavix. Nutritional deficiency: -Phosphorus 4.4, magnesium 2.2. Discontinue TPN. Advancing to clear liquid diet. Holding on diuresis today. Remains on room air for over 48 hours. SCD for DVT ppx Full code Clear liquid diet
[2024-07-11 08:12] LABS: Magnesium 2.2 mg/dl (1.6-2.3); Phosphorous 4.9 mg/dl (2.5-4.5)
[2024-07-11] MEDS: SIMETHICONE 40MG/0.6ML DROPS; 30ML BOTTLE 2.4 ML PO ×3 (09:55→20:50)
[2024-07-11] MEDS: ENOXAPARIN 40MG/0.4ML SYRINGE 40 MG SQ (09:55)
--- NOTE | 2024-07-11 09:58 | EXP.SURG.PN ---
Subjective Patient reports: flatus and bowel movement (He reports a very small bowel movement ) Narrative: The patient remains concerned and states that he wishes to keep the NG for a little bit longer . Exam Data for Last 24 hours Vital signs and Labs for Last 24 Hours: Temp Pulse Resp BP Pulse Ox O2 Del Method O2 Flow Rate 98.5 F 59 L 19 113/64 95 Room Air 2.5 07/11/24 07:48 07/11/24 07:48 07/11/24 07:48 07/11/24 07:48 07/11/24 07:48 07/11/24 07:48 07/09/24 08:00 FiO2 2 07/06/24 14:00 Laboratory Results - last 24 hr 07/10/24 11:59: POC Glucose 135 H 07/10/24 18:18: POC Glucose 125 H 07/11/24 00:19: POC Glucose 110 07/11/24 05:44: POC Glucose 113 H 07/11/24 06:30: WBC 7.7, RBC 3.10 L, Hgb 10.9 L, Hct 29.5 L, MCV 95.2 H, MCH 35.1 H, MCHC 36.9 H, RDW 13.8, Plt Count 384, MPV 8.6, Neut % (Auto) 72.4, Lymph % (Auto) 19.2, [place] % (Auto) 5.7, Eos % (Auto) 2.1, Baso % (Auto) 0.6, Neut # (Auto) 5.6, Lymph # (Auto) 1.5, [place] # (Auto) 0.4, Eos # (Auto) 0.2, Baso # (Auto) 0.0, Sodium 135 L, Potassium 4.2, Chloride 98, Carbon Dioxide 33 H, Anion Gap 8.2, BUN 32 H D, Creatinine 0.80, Estimated Creat Clear 112, Estimated GFR 99, Est GFR ( Amer) 120, Glucose 111 H, Calcium 8.6, Phosphorus 4.9 H, Magnesium 2.2, Total Bilirubin 0.8, AST 225 H, ALT 338 H*, Alkaline Phosphatase 133 H, Total Protein 6.6, Albumin 3.3 L D, Globulin 3.3 H, Albumin/Globulin Ratio 1.0 L I & O for Last 24 hours: Intake & Output 08/1507/09/24 07/10/24 07/11/24 11:59 11:59 11:59 11:59 Intake Total 3303 / 3303 4574 / 4574 1752 / 1752 1097 / 1097 Output Total 3400 / 3400 3650 / 3650 1825 / 1825 900 / 900 Balance -97 / -97 924 / 924 -73 / -73 197 / 197 Weight 182 lb 1.6 oz 177 lb 12.8 oz 176 lb 3.2 oz 176 lb 3.2 oz Constitutional Constitutional: no acute distress *Routine Respiratory Exam Respiratory: Absent respiratory distress *Routine Cardiovascular Exam Cardiovascular: Absent tachycardia *Routine Abdominal Exam Abdominal: Present soft Comments: Incision healing without evidence of infection Progress Note: A&P Assessment and plan (1) Ileus, postoperative: Status: Acute (2) S/P exploratory laparotomy: Status: Inactive (3) SBO (small bowel obstruction): Status: Acute Assessment and Plan Assessment and Plan for All Diagnoses:: Overall, doing fairly well postoperative day 6 status post repeat exploratory laparotomy with repeat small bowel resection. He reports a very small bowel movement . I have discussed the risks and benefits of nasogastric tube removal. The patient reiterates that he wishes to keep the tube a little longer . Cautiously advance to clear liquids (possible full liquids later today)
[2024-07-11] MEDS: KETOROLAC 30MG/ML VIAL 30 MG IV ×2 (11:59→19:44)
[2024-07-11] MEDS: ERTAPENEM SODIUM 1 GM in 0.9 % SODIUM CHLORIDE 50 ML IV (11:59)
[2024-07-11 15:54] VITALS: BP 127/71; PULSE 66; O2SAT 96
--- NOTE | 2024-07-11 18:15 | PC.NURSE ---
Pt A&Ox4. Pt has had multiple bowel movements this shift. Ambulating independently to and from bathroom. Pt has been moved from a clear liquid diet to full liquid diet and although he is only taking in about 20% from each tray he is tolerating this well with no need to put NG to suction. Pt has had multiple c/o pain today but has been medicated per MAR. Pt Midline incision started leaking at end of shift, MD made aware and went to bedside to find source of leakage from incision. The MD was able to remove to martina and pack with 4x4 where incision was leaking and placed gauze over incision with tape to try and keep incision clean and dry. No odor from drainage noted. Dr. Lui made aware of situation. has been at bedside most of day. Pt is now resting in bed comfortably with no complaints at this time.
[2024-07-11 20:00] VITALS: BP 114/61; PULSE 68; RESP 16; TEMP 36.9; O2SAT 94
[2024-07-11] MEDS: MELATONIN 5MG TABLET 10 MG PO (20:50)
[2024-07-12] VITALS (18 sets, daily range): BP systolic 101–147; BP diastolic 53–79; PULSE 68–102; RESP 14–20; TEMP 36.7–37.4; O2SAT 90–95; BMI 27.6
[2024-07-12] MEDS: HYDROMORPHONE 2MG/ML SYRINGE 0.5 MG IV ×7 (00:31→21:07)
[2024-07-12] MEDS: METOCLOPRAMIDE HCL 10MG/2ML VIAL 5 MG IVP ×3 (05:00→23:30)
[2024-07-12] MEDS: KETOROLAC 30MG/ML VIAL 30 MG IV ×3 (05:00→23:07)
[2024-07-12 06:20] LABS: Albumin Level 3.2 g/dl (3.5-5.0); Chloride 99 mmol/L (98-107); Potassium 4.3 mmoL/L (3.5-5.1); Sodium 134 mmol/L (136-145)
[2024-07-12 06:22] LABS: Blood Urea Nitrogen 35 mg/dl (9-20); Creatinine Clearance Estimated 100 mL/min (50-200); Estimated Glomerular Filt Rate 86 ml/min (>60); GFR (African American) 105 ML/MIN (>60)
[2024-07-12 06:23] LABS: Alanine Aminotransferase 269 U/L (12-78); Alkaline Phosphatase 138 U/L (38-126); Anion Gap 8.3 mEq/L (5-15); Aspartate Amino Transferase 107 U/L (17-59); Bilirubin,Total 0.8 mg/dl (0.2-1.3); Calcium 8.5 mg/dl (8.4-10.2); Carbon Dioxide 31 mmol/L (22.0-30.0); Globulin 3.3 g/dL (1.3-3.2); Glucose 110 mg/dl (74-100); Total Protein,Serum 6.5 g/dl (6.3-8.2)
--- NOTE | 2024-07-12 06:40 | PC.NURSE ---
Patient is A&OX4 and has tolerated room air. Lung sounds clear throughout and bowel sounds active in all quadrants. NG tube has remained in place with no suction. Pt has complained of abdominal pain multiple times this shift and was treated per MAR. Dressing over midline incision has remained clean, dry and intact. He has tolerated full liquid diet well with no complaints of nausea. He has been passing gas, but has not had a BM this shift. No complaints at this time, call light within reach.
--- NOTE | 2024-07-12 06:55 | P.PN_ITS ---
Subjective Narrative: Pt resting. Tolerating full liquids but hesitant to remove NG tube. Exam Data for Last 24 hours Vital signs and Labs for Last 24 Hours: Temp Pulse Resp BP Pulse Ox O2 Del Method O2 Flow Rate 99.2 F 69 16 112/61 93 L Room Air 2.5 07/12/24 04:00 07/12/24 04:00 07/12/24 04:00 07/12/24 04:00 07/12/24 04:00 07/12/24 06:37 07/09/24 08:00 FiO2 2 07/06/24 14:00 Laboratory Results - last 24 hr 07/11/24 06:30: WBC 7.7, RBC 3.10 L, Hgb 10.9 L, Hct 29.5 L, MCV 95.2 H, MCH 35.1 H, MCHC 36.9 H, RDW 13.8, Plt Count 384, MPV 8.6, Neut % (Auto) 72.4, Lymph % (Auto) 19.2, [place] % (Auto) 5.7, Eos % (Auto) 2.1, Baso % (Auto) 0.6, Neut # (Auto) 5.6, Lymph # (Auto) 1.5, [place] # (Auto) 0.4, Eos # (Auto) 0.2, Baso # (Auto) 0.0, Sodium 135 L, Potassium 4.2, Chloride 98, Carbon Dioxide 33 H, Anion Gap 8.2, BUN 32 H D, Creatinine 0.80, Estimated Creat Clear 112, Estimated GFR 99, Est GFR ( Amer) 120, Glucose 111 H, Calcium 8.6, Phosphorus 4.9 H, Magnesium 2.2, Total Bilirubin 0.8, AST 225 H, ALT 338 H*, Alkaline Phosphatase 133 H, Total Protein 6.6, Albumin 3.3 L D, Globulin 3.3 H, Albumin/Globulin Ratio 1.0 L 07/12/24 05:50: Sodium 134 L, Potassium 4.3, Chloride 99, Carbon Dioxide 31 H, Anion Gap 8.3, BUN 35 H, Creatinine 0.90, Estimated Creat Clear 100, Estimated GFR 86, Est GFR ( Amer) 105, Glucose 110 H, Calcium 8.5, Total Bilirubin 0.8, AST 107 H D, ALT 269 H, Alkaline Phosphatase 138 H, Total Protein 6.5, Albumin 3.2 L, Globulin 3.3 H, Albumin/Globulin Ratio 1.0 L I & O for Last 24 hours: Intake & Output 07/09/24 07/10/24 07/11/24 07/12/24 11:59 11:59 11:59 11:59 Intake Total 4574 / 4574 1752 / 1752 1097 / 1097 780 / 780 Output Total 3650 / 3650 1825 / 1825 900 / 900 400 / 400 Balance 924 / 924 -73 / -73 197 / 197 380 / 380 Weight 177 lb 12.8 oz 176 lb 3.2 oz 176 lb 3.2 oz 176 lb 3.165 oz Constitutional Constitutional: no acute distress Progress Note: A&P Assessment and plan (1) Bacteremia: Status: Acute (2) Ileus, postoperative: Status: Acute (3) Diarrhea: Status: Acute (4) S/P exploratory laparotomy: Status: Inactive Assessment and plan: Probably DC Ng later. (5) CAD (coronary artery disease), [place] coronary artery: Status: Acute (6) History of heart attack: Status: Inactive (7) Depression: Status: Acute
[2024-07-12 07:10] LABS: Basophils % 0.4 % (0.1-2.0); Eosinophils # 0.1 K/mm3 (0.0-0.4); Eosinophils % 0.7 % (0.1-12.0); Hematocrit 35.5 % (42.0-52.0); Hemoglobin 11.1 g/dL (14.1-18.0); Lymphocytes # 1.2 K/mm3 (0.7-4.5); Lymphocytes % 12.3 % (10-50); Mean Corpuscular HGB Conc 31.2 g/dL (31.8-35.4); Mean Corpuscular Hemoglobin 29.8 pg (27.0-31.2); Mean Corpuscular Volume 95.5 fl (80-94); Mean Platelet Volume 8.8 fl (7.4-10.4); Monocytes # 0.4 K/mm3 (0.1-1.0); Monocytes % 4.1 % (1.7-9.3); Neutrophils # 8.3 K/mm3 (1.8-7.8); Neutrophils % 82.5 % (37.0-80.0); Platelet Count 497 K/mm3 (142-424); Red Blood Count 3.71 M/mm3 (4.60-6.20); Red Cell Distribution Width 13.8 % (11.5-17.5)
[2024-07-12] MEDS: SIMETHICONE 40MG/0.6ML DROPS; 30ML BOTTLE 2.4 ML PO (08:41)
[2024-07-12] MEDS: ONDANSETRON 4MG/2ML VIAL 4 MG IV (09:30)
--- NOTE | 2024-07-12 10:24 | CT_ITS ---
FINAL REPORT TECHNIQUE: After the administration of oral and intravenous contrast, axial images were obtained through the abdomen and pelvis by computed tomography. The study was performed with techniques to keep radiation dose as low as reasonably achievable, (ALARA). Individual dose reduction techniques using automated exposure control or adjustment of mA and/or kV according to the patient's size were employed. CLINICAL HISTORY: INCREASED ABDOMINAL PAIN, EVAL FOR LEAK COMPARISON: 07/06/2024 FINDINGS: Abdomen: Bibasilar atelectasis versus scar is present in the lung bases. There is mild fatty infiltration of the liver. The gallbladder is present. The spleen, pancreas and kidneys appear unremarkable. There is enlargement of the left adrenal gland, 2.9 x 2 cm in size, given differences in technique stable since the prior CT of July 06. The aorta is normal in caliber. There is a loop of small bowel which measures up to 4 cm in thickness, slightly more prominent than seen on the prior CT, with adjacent loculated fluid, which has increased since the prior exam. Unfortunately, no delayed images were obtained to assess for possible urine leak. No hydronephrosis is noted. Pelvis: The appendix is not identified. Postoperative change is present in the right lower quadrant. The urinary bladder is unremarkable. There is no free fluid or adenopathy in the pelvis. IMPRESSION: Dilated loop of small bowel measuring up to 4 cm in size, slightly increased when compared to the prior exam, that may represent a segmental postoperative ileus although partial small bowel obstruction is not excluded. No delayed images were obtained to evaluate for urine leak. No evidence of hydronephrosis or extravasated contrast is seen. Left adrenal mass, stable since the prior exam. Reviewed, Interpreted and Dictated by Emanuel Diego MD Transcribed by Namita Richard Authenticated and [facility]
--- NOTE | 2024-07-12 10:30 | P.PN_ITS ---
Subjective Narrative: Patient had developed increasing abdominal pain early this morning. No nausea. Minimal NG output. Did have some additional drainage from the lower aspect of the incision which the hospitalist removed a couple of martina. Exam Data for Last 24 hours Vital signs and Labs for Last 24 Hours: Temp Pulse Resp BP Pulse Ox O2 Del Method O2 Flow Rate 98.2 F 68 16 132/69 93 L Room Air 2.5 07/12/24 08:00 07/12/24 08:00 07/12/24 08:00 07/12/24 08:00 07/12/24 08:00 07/12/24 08:00 07/09/24 08:00 FiO2 2 07/06/24 14:00 Laboratory Results - last 24 hr 07/12/24 05:50: WBC 10.0 D, RBC 3.71 L, Hgb 11.1 L, Hct 35.5 L, MCV 95.5 H, MCH 29.8, MCHC 31.2 L, RDW 13.8, Plt Count 497 H D, MPV 8.8, Neut % (Auto) 82.5 H, Lymph % (Auto) 12.3, [place] % (Auto) 4.1, Eos % (Auto) 0.7, Baso % (Auto) 0.4, Neut # (Auto) 8.3 H, Lymph # (Auto) 1.2, [place] # (Auto) 0.4, Eos # (Auto) 0.1, Baso # (Auto) 0.0, Sodium 134 L, Potassium 4.3, Chloride 99, Carbon Dioxide 31 H , Anion Gap 8.3, BUN 35 H, Creatinine 0.90, Estimated Creat Clear 100, Estimated GFR 86, Est GFR ( Amer) 105, Glucose 110 H, Calcium 8.5, Total Bilirubin 0.8, AST 107 H D, ALT 269 H, Alkaline Phosphatase 138 H, Total Protein 6.5, Albumin 3.2 L, Globulin 3.3 H, Albumin/Globulin Ratio 1.0 L I & O for Last 24 hours: Intake & Output 07/09/24 07/10/24 07/11/24 07/12/24 11:59 11:59 11:59 11:59 Intake Total 4574 / 4574 1752 / 1752 1097 / 1097 780 / 780 Output Total 3650 / 3650 1825 / 1825 900 / 900 400 / 400 Balance 924 / 924 -73 / -73 197 / 197 380 / 380 Weight 177 lb 12.8 oz 176 lb 3.2 oz 176 lb 3.2 oz 176 lb 3.165 oz *Routine Abdominal Exam Abdominal: Present tenderness Comments: Thin greenish drainage from the inferior aspect of the incision. Patient with guarding. Progress Note: A&P Assessment and plan (1) Bacteremia: Status: Acute (2) Ileus, postoperative: Status: Acute (3) Diarrhea: Status: Acute (4) S/P exploratory laparotomy: Status: Inactive Assessment and plan: Concern for possible enteric leak. I will see if I can obtain a stat CT scan. With findings concerning for peritonitis on exam may require additional laparotomy and washout. (5) CAD (coronary artery disease), [place] coronary artery: Status: Acute (6) History of heart attack: Status: Inactive (7) Depression: Status: Acute
--- NOTE | 2024-07-12 11:11 | HMH.ITSTN ---
Pt finished drinking oral contrast for CT scan @11:10; will be ready for scan @1310
--- NOTE | 2024-07-12 11:33 | P.PN_ITS ---
Subjective *Date: 07/12/24 *Time: 17:20 Interval history: Developed Tulio overnight from incision. Draining yellow fluid. Had some onset of pain. No fever, nausea or vomiting. Having bowel movements and passing gas. Tolerating full liquids. Medical Exam Vital signs and Labs for Last 24 Hours: Vital Signs Temp Pulse Resp BP Pulse Ox O2 Del Method 07/12/24 08:00 98.2 F 68 16 132/69 93 L Room Air 07/12/24 06:37 Room Air 07/12/24 05:00 Room Air 07/12/24 04:00 99.2 F 69 16 112/61 93 L Room Air 07/12/24 02:52 Room Air 07/12/24 00:59 Room Air 07/12/24 00:00 Room Air 07/11/24 22:53 Room Air 07/11/24 21:00 Room Air 07/11/24 20:00 Room Air 07/11/24 20:00 98.5 F 68 16 114/61 94 L Room Air 07/11/24 19:00 Room Air 07/11/24 17:00 Room Air 07/11/24 15:54 66 127/71 96 Room Air 07/11/24 15:00 Room Air 07/11/24 12:43 Room Air Intake and Output 07/11/24 07/12/24 07/12/24 23:59 07:59 15:59 Intake Total 120 / 780 300 / 300 Output Total 100 / 300 300 / 300 Balance 20 / 480 0 / 0 Intake: Intake, Oral Amount 120 / 780 300 / 300 Output: Output, Urine Amount 100 / 100 300 / 300 Other: Number of Unmeasured Voids 0 0 Weight 79.922 kg Patient Weight 07/12/24 23:59 Weight 79.922 kg Laboratory Results - last 24 hr 07/12/24 05:50: WBC 10.0 D, RBC 3.71 L, Hgb 11.1 L, Hct 35.5 L, MCV 95.5 H, MCH 29.8, MCHC 31.2 L, RDW 13.8, Plt Count 497 H D, MPV 8.8, Neut % (Auto) 82.5 H, Lymph % (Auto) 12.3, [place] % (Auto) 4.1, Eos % (Auto) 0.7, Baso % (Auto) 0.4, Neut # (Auto) 8.3 H, Lymph # (Auto) 1.2, [place] # (Auto) 0.4, Eos # (Auto) 0.1, Baso # (Auto) 0.0, Sodium 134 L, Potassium 4.3, Chloride 99, Carbon Dioxide 31 H , Anion Gap 8.3, BUN 35 H, Creatinine 0.90, Estimated Creat Clear 100, Estimated GFR 86, Est GFR ( Amer) 105, Glucose 110 H, Calcium 8.5, Total Bilirubin 0.8, AST 107 H D, ALT 269 H, Alkaline Phosphatase 138 H, Total Protein 6.5, Albumin 3.2 L, Globulin 3.3 H, Albumin/Globulin Ratio 1.0 L I & O for Labs for Last 24 Hours: Intake & Output 07/09/24 07/10/24 07/11/24 07/12/24 23:59 23:59 23:59 23:59 Intake Total 5613 / 6015 1810 / 1810 480 / 780 300 / 300 Output Total 3725 / 3725 1500 / 1500 300 / 300 300 / 300 Balance 1888 / 2290 310 / 310 180 / 480 0 / 0 Weight 80.649 kg 79.923 kg 79.923 kg 79.922 kg Constitutional: Present no acute distress, average body habitus and cooperative Head: Present atraumatic and normocephalic ENT: Present normal exam Comment:: NG in nose Respiratory: Present CTA bilaterally; Absent rhonchi, wheezes or crackles Cardiac: Present Reg Rate and Rhythm GI: Present soft, tenderness (Increased today, over incision but also somewhat diffuse in abdomen.) and normal bowel sounds; Absent distention Comments:: Drainage from surgical incision. Skin: Present intact; Absent cyanosis Neuro: Present alert, awake, oriented x 3 and moves all extremities Assessment and Plan *Assessment and plan (1) Bacteremia: Status: Acute Category: Medical Code(s): R78.81 - Bacteremia (2) Ileus, postoperative: Status: Acute Category: Medical Code(s): K91.89 - Other postprocedural complications and disorders of digestive system; K56.7 - Ileus, unspecified (3) Diarrhea: Status: Acute Category: Medical Code(s): R19.7 - Diarrhea, unspecified (4) S/P exploratory laparotomy: Status: Inactive Category: Medical Code(s): Z98.890 - Other specified postprocedural states (5) CAD (coronary artery disease), [place] coronary artery: Status: Acute Qualifiers: [place] vs. transplanted heart: [place] heart Associated angina: unspecified whether angina present Qualified Code(s): I25.10 - Atherosclerotic heart disease of [place] coronary artery without angina pectoris Category: Medical Code(s): I25.10 - Atherosclerotic heart disease of [place] coronary artery without angina pectoris (6) History of heart attack: Status: Inactive Category: Medical Code(s): I25.2 - Old myocardial infarction (7) Depression: Status: Acute Qualifiers: Depression Type: unspecified Qualified Code(s): F32.9 - Major depressive disorder, single episode, unspecified Category: Medical Code(s): F32.9 - Major depressive disorder, single episode, unspecified (8) Abdominal wound dehiscence: Status: Acute Qualifiers: Encounter type: initial encounter Qualified Code(s): T81.30XA - Disruption of wound, unspecified, initial encounter Category: Medical Code(s): T81.30XA - Disruption of wound, unspecified, initial encounter Plan 58-year-old male with PMHx of CAD s/p stent, open appendectomy, and recent bowel resection due to small bowel obstruction. Presented to surgery clinic with persistent nausea and vomiting, dehiscence of proximal portion of the surgical wound, and diarrhea. Postop day 1. Status post repeat surgery yesterday with takedown of significant adhesions. Inflammation of anastomosis. Continues to require inpatient management. Tolerating antibiotics. Developed dehiscence with drainage of surgical incision overnight. Having some pain. Discussed case with surgery, planning to return to the OR today for evaluation of wound and placement of wound VAC. Continues to require inpatient management. Problems addressed as follows: Postop ileus Transaminitis Wound dehiscence, worsening - Initial operation 06/17 for bowel obstruction with removal of part of small bowel and end-to-end anastomosis. Repeat surgery 07/05 with new anastomosis formed and takedown of numerous adhesions. Gradual improvement in bowel function, has been tolerating full liquids for 48 hours. Developed drainage from incision overnight. Discussed case with surgery, going back for evaluation of incision today with likely placement of wound VAC. - Leave NG in place. - Zofran as needed every 8 hours for nausea -Continuing ketorolac 30 mg as needed every 6 hours for moderate pain. Increase Dilaudid frequency to 0.5 mg as needed every 2 hours given increased severity of pain. Receiving frequently, at least 6 doses in the past 24 hours. -Kidney function normal with BUN 35, creatinine 0.9. Liver function showing bilirubin 0.8, AST 107, ALT 269, alkaline phosphatase 138. Improvement after stopping TPN. Klebsiella and Citrobacter bacteremia Wound dehiscence suspicious for infection -White count increased to 10. Neutrophil predominance. Repeat CBC, CMP, magnesium ordered for the morning. -Continue ertapenem 1 g daily. Anticipate 10 days of antibiotics -Will initiate vancomycin for gram-positive coverage. Close monitoring of kidney function. Chronic conditions CAD s/p stent, Hx of heart attack depression: Resume Prozac, hold Wellbutrin. Holding statin and Plavix. SCD for DVT ppx Full code Full liquid diet
[2024-07-12] MEDS: FLUOXETINE 20MG CAPSULE 20 MG PO (11:50)
[2024-07-12] MEDS: SODIUM CHLORIDE 0.9% 10ML SYR (RAD ONLY) 10 ML IV (13:28)
[2024-07-12] MEDS: IOPAMIDOL-370 (76%);100ML BOTTLE 75 ML IV (13:28)
[2024-07-12] MEDS: ERTAPENEM SODIUM 1 GM in 0.9 % SODIUM CHLORIDE 50 ML IV (13:57)
--- NOTE | 2024-07-12 14:04 | P.CONPHA_ITS ---
Pharmacy Consult Date: 07/12/24 Time: 14:04 Referring provider: DR. MCALLISTER Reason for Consult:: VANCOMYCIN DOSING Allergies Allergy/AdvReac Type Severity Reaction Status Date / Time morphine AdvReac Vomiting Verified 07/09/24 19:16 Home Medications ?Medication ?Instructions ?Recorded ?Confirmed ?Type atorvastatin 40 mg tablet 40 mg PO HS #90 tabs 01/07/24 06/29/24 Rx bupropion HCl 150 mg tablet,12 hr 150 mg PO BID #180 ea 01/07/24 06/29/24 Rx sustained-release (Wellbutrin SR) clopidogrel 75 mg tablet 75 mg PO DAILY #90 tabs 01/07/24 06/29/24 Rx fluoxetine 20 mg capsule 20 mg PO DAILY 06/17/24 06/29/24 History acetaminophen 325 mg tablet 650 mg (2 x 325 mg) PO Q6HP PRN 06/24/24 06/29/24 Rx Fever Or Mild Pain (1-3) #0 tabs ondansetron 4 mg disintegrating 4 mg PO Q6HP PRN nausea and 06/29/24 06/29/24 History tablet vomiting oxycodone-acetaminophen 5 mg-325 1 tab PO Q6HP PRN Moderate Pain 06/29/24 06/29/24 History mg tablet (Percocet) (Scale Score 5-6) promethazine 25 mg tablet 25 mg PO Q6HP PRN nausea and 06/29/24 06/29/24 History vomiting sildenafil 100 mg tablet (Viagra) 100 mg PO NEEDED PRN sexual 06/29/24 06/29/24 History activity New Prescriptions to Start Prescriptions: Height: 1.7 m Weight: 79.922 kg Laboratory Results:: Laboratory Results - last 24 hr 07/12/24 05:50: WBC 10.0 D, RBC 3.71 L, Hgb 11.1 L, Hct 35.5 L, MCV 95.5 H, MCH 29.8, MCHC 31.2 L, RDW 13.8, Plt Count 497 H D, MPV 8.8, Neut % (Auto) 82.5 H, Lymph % (Auto) 12.3, [place] % (Auto) 4.1, Eos % (Auto) 0.7, Baso % (Auto) 0.4, Neut # (Auto) 8.3 H, Lymph # (Auto) 1.2, [place] # (Auto) 0.4, Eos # (Auto) 0.1, Baso # (Auto) 0.0, Sodium 134 L, Potassium 4.3, Chloride 99, Carbon Dioxide 31 H , Anion Gap 8.3, BUN 35 H, Creatinine 0.90, Estimated Creat Clear 100, Estimated GFR 86, Est GFR ( Amer) 105, Glucose 110 H, Calcium 8.5, Total Bilirubin 0.8, AST 107 H D, ALT 269 H, Alkaline Phosphatase 138 H, Total Protein 6.5, Albumin 3.2 L, Globulin 3.3 H, Albumin/Globulin Ratio 1.0 L Medical History: Medical History (Updated 07/06/24 @ 16:10 by Rashaad Mcallister MD) Bowel obstruction History of heart attack Heart attack Depression Erosive osteoarthritis of multiple sites Assessment and Plan Assessment and plan all Dx Assessment and Plan for all problems:: Pharmacokinetic dosing service Objective: Patient: Floor: Age: 58 yo Serum creatinine: 1 mg/dL Height: 66.9 Inches Weight (kg): 79.9 Assessment: IBW (kg): 65.87 Dosing wt(kg): 79.9 Estimated Creatinine clearance (ml/min): 74.1 CRCL method: Cockcroft and Gault using ibw(default). Drug selected: Vancomycin Loading dose (mg): 0 Vd (liters): 63.9 (factor used: 0.8 L/kg) Nikita (hr-1): 0.066 Half life (hrs): 10.50 Recommended dose: 1250 mg Interval: 12 hrs Infusion time (hrs): 2.0 Predicted peak (mcg/mL): 33.5 Predicted trough (mcg/mL): 17.31 Total body weight is being used for vancomycin dosing. Recommendations: Give Vancomycin 1250 mg q 12 hrs with an expected Cpeak of 33.5 mcg/ml and an expected Ctrough of 17.31 mcg/ml ----Vanco only - ignore for aminoglycosides----- CLvanco= 4.22 L/hr AUC 0-24 /YUNIOR Data: YUNIOR 0.5 mcg/mL: AUC/YUNIOR: 1184.8 YUNIOR 1.0 mcg/mL: AUC/YUNIOR: 592.4 --------- YUNIOR 1.5 mcg/mL: AUC/YUNIOR: 394.9 YUNIOR 2.0 mcg/mL: AUC/YUNIOR: 296.2
--- NOTE | 2024-07-12 15:37 | CT_ITS ---
FINAL REPORT TECHNIQUE: Axial images through the abdomen and pelvis were performed without contrast.This study was performed with techniques to keep radiation doses as low as reasonably achievable, (ALARA). Individualized dose reduction techniques using automated exposure control or adjustment of mA and/or kV according to the patient's size were employed. CLINICAL HISTORY: abdominal pain, delayed imaging COMPARISON: 07/12/2024 FINDINGS: Patient was return for delayed imaging. Again seen is significant distention of the proximal small bowel with a large amount of surrounding fluid, similar to previous exam. Contrast has progressed distally through the anastomotic segment. There is no extravasation of contrast. There is a tiny amount of air deep to the incision likely due to overlying incision. There is moderate free fluid in the pelvis. IMPRESSION: Distal passage of contrast through anastomotic site without definite evidence of contrast leak. Reviewed, Interpreted and Dictated by Emanuel Diego MD Transcribed by Kristin Gudino Authenticated and [facility]
[2024-07-12] MEDS: AMPICILLIN SODIUM/SULBACTAM 3 GM in 0.9 % SODIUM CHLORIDE 100 ML IV ×2 (16:20→21:01)
--- NOTE | 2024-07-12 17:30 | EXP.ANES.I ---
[facility] Anesthesia Record Part I Anesthesia Record I Intake, IV Amount: 1,500 Hydration: Adequate Estimated blood loss (mL): 20 Urine output (mL): 200 Blood Pressure: 147/75 SaO2: 95 Pulse Rate: 97 Airway Patency: Patent Respiratory Rate: 14 Temperature: 99.4 F Patient is:: Awake and Stable Stable to PACU at:: 17:25
--- NOTE | 2024-07-12 17:35 | EXP.OP.NOTE ---
Date of procedure: 07/12/24 Pre-op Diagnosis:: Wound drainage, possible enteric leak Post-op Diagnosis:: Same Procedure performed:: Wound washout with VAC dressing placement Surgeon:: Jose Antonio Nation MD PLANT PROPAGATOR:: Reymundo Marvin Anesthesia: GETA Estimated blood loss (mL): 5 Clinical Note:: Patient is a 58-year-old male who had previously undergone abdominal surgery as an infant. He also had an appendectomy done, open, decades ago. He had a previous episode of small bowel obstruction managed nonoperatively at another facility. He had presented to [facility] on 06/17/2024 with several days of obstructive symptoms. Upon presentation at that time he had findings clinically consistent with complete small bowel obstruction and peritoneal findings. He was taken emergently to the operating room at which time he was found to have complete bowel obstruction in the distal jejunum with extremely dense, extensive, matted conglomeration of adhesions with the distal small bowel completely decompressed. He underwent resection with primary anastomosis. Patient was ultimately discharged on 06/24/2024 tolerating full liquid diet at that time. However, he quickly as an outpatient developed recurrent symptoms. He was readmitted on 06/29/2024 with attempt at management of recurrent bowel obstruction. He had transiently shown some improvement. However, on 07/05/2024 he had significant increase in his nasogastric output greater than 1500 cc over 24 hours with increasing distention and abdominal pain. Patient was administered Gastroview for small bowel follow-through and this failed to show progression of contrast and the procedure was terminated due to the patient's discomfort. He was taken back to the operating room on 07/05/2024 at which time he had what appeared to be complete small bowel obstruction seemingly at the prior anastomosis with an incredibly intense inflammatory process around the small bowel anastomosis creating almost a masslike effect resulting in obstruction. He underwent resection of this as well as additional devitalized small bowel. Due to the fact that the anastomosis was densely adherent into the right posterior pelvis he did undergo IV pyelogram the following day which revealed intact ureters. Over the next few days patient had shown some decreased NG output and began to pass significant amounts of flatus with small liquid bowel movement. He was given cautious clear liquids which she tolerated without difficulty. He was given limited full liquids. However, the patient did not want to have his nasogastric tube removed due to his concerns for possible recurrent obstruction. He had developed some minor serous drainage from the mid aspect of his incision near the umbilicus and at the inferior aspect which required a couple of martina to be removed. Later in the morning of 07/12/2024 he had some significantly increasing abdominal pain. He was noted to have appreciable amount of thin greenish drainage from the lower aspect of the incision. There was a concern for possible anastomotic leak or other enteric leak. He underwent CT scan with IV and oral contrast. This revealed dilated bowel. It was felt the patient required operative intervention with at least wound exploration to examine underlying fascia due to the large amount of drainage and rule out fascial dehiscence and also rule out enteric leak. Arrangements were made for patient to be taken to the operating room. He did, on the way to the operating room, undergo delayed imaging to assess for progression of contrast and enteric leak. This revealed distal passage of contrast through the prior small bowel anastomotic site without definite evidence of contrast leak. . Operative findings:: Overall fascia was intact. There were a couple of areas of laxity without definite dehiscence with some thin greenish tinged fluid drainage. . Operative note:: Consent was obtained patient was taken the operating room. He was given preoperative intravenous antibiotics. In the operating room he was placed in a supine position. General anesthesia was induced. Abdomen was prepped and draped in the standard surgical fashion. Sutures and martina were removed from the lower aspect of the incision. There was some thin greenish fluid. This was cleared. It was sent for culture. Ultimately the entire skin incision was opened. Underlying fascia was essentially intact with only a couple of areas, most notable in the inferior aspect of the incision, with some minor laxity which with abdominal pressure resulted in some fluid which was suctioned free. The wound was thoroughly irrigated with 3 L using the Interpulse pulsatile saline commercial tire service technician. Given the findings on the CT scan and clinical findings intraoperatively plan was made to not open the fascia. The area of minor laxity at the lower aspect of the incision was carefully closed with a 0 PDS. Upper aspect of the wound to the supraumbilical area was closed with interrupted 2-0 nylon vertical mattress sutures. The lower aspect of the wound was left open. This open surgical site measured 9 cm in length, 1.5 cm in width, 4.5 cm depth. Negative pressure wound therapy dressing was brought onto the field. The foam was cut to the appropriate size and shape for the open wound. Negative pressure wound therapy dressing was secured. . Condition: stable Disposition: PACU Complications:: None immediately apparent
[2024-07-12 18:20] LABS: Microscopic,Cath URINE MICROSCOPIC (MICROSCOPIC)
[2024-07-12] MEDS: VANCOMYCIN/WATER FOR INJ (PEG) 1.25 GM/250 ML PIGGYBACK IV (18:25)
[2024-07-12 20:40] LABS: Appearance,Urine/Cath CLEAR (Clear); Blood, Urine/Cath Negative (Negative); Color,Urine/Cath YELLOW (Yellow); Glucose,Urine/Cath (UA) Negative (Negative); Ketones,Urine/Cath Negative (Negative); Leukocyte Esterase,Cath Negative (Negative); Nitrate,Cath Negative (Negative); Protein,Urine/Cath Negative (Negative); Specific Gravity, Urine/Cath 1.015 (1.005-1.030)
[2024-07-12 20:43] LABS: Bilirubin,Cath Negative (Negative)
[2024-07-12 21:03] LABS: Bacteria,Urine/Cath 1+ /lpf; Squamous Epithelial Ur./Cath Occasional #/hpf (0-5); WBC,Urine/Cath Occasional #/hpf (0-3)
[2024-07-13] VITALS (7 sets, daily range): BP systolic 108–135; BP diastolic 57–79; PULSE 74–85; RESP 16–20; TEMP 36.4–37.6; O2SAT 92–97; BMI 26.6
[2024-07-13] MEDS: VANCOMYCIN/WATER FOR INJ (PEG) 1.25 GM/250 ML PIGGYBACK IV ×2 (02:02→15:37)
[2024-07-13] MEDS: HYDROMORPHONE 2MG/ML SYRINGE 0.5 MG IV ×6 (02:22→21:38)
[2024-07-13] MEDS: METOCLOPRAMIDE HCL 10MG/2ML VIAL 5 MG IVP ×4 (04:17→23:04)
[2024-07-13] MEDS: AMPICILLIN SODIUM/SULBACTAM 3 GM in 0.9 % SODIUM CHLORIDE 100 ML IV ×2 (04:18→10:24)
[2024-07-13 06:39] LABS: Chloride 101 mmol/L (98-107); Potassium 4.5 mmoL/L (3.5-5.1); Sodium 135 mmol/L (136-145)
[2024-07-13 06:41] LABS: Blood Urea Nitrogen 34 mg/dl (9-20); Creatinine Clearance Estimated 96 mL/min (50-200); Estimated Glomerular Filt Rate 86 ml/min (>60); GFR (African American) 105 ML/MIN (>60)
[2024-07-13 06:42] LABS: Alanine Aminotransferase 148 U/L (12-78); Alkaline Phosphatase 104 U/L (38-126); Anion Gap 9.5 mEq/L (5-15); Aspartate Amino Transferase 41 U/L (17-59); Bilirubin,Total 0.8 mg/dl (0.2-1.3); Calcium 8.2 mg/dl (8.4-10.2); Carbon Dioxide 29 mmol/L (22.0-30.0); Glucose 130 mg/dl (74-100)
[2024-07-13 06:57] LABS: Basophils % 0.1 % (0.1-2.0); Eosinophils % 0.1 % (0.1-12.0); Hematocrit 36.2 % (42.0-52.0); Hemoglobin 11.1 g/dL (14.1-18.0); Lymphocytes # 1.2 K/mm3 (0.7-4.5); Lymphocytes % 4.7 % (10-50); Mean Corpuscular HGB Conc 30.8 g/dL (31.8-35.4); Mean Corpuscular Hemoglobin 29.3 pg (27.0-31.2); Mean Corpuscular Volume 95.3 fl (80-94); Mean Platelet Volume 9.2 fl (7.4-10.4); Monocytes % 3.8 % (1.7-9.3); Neutrophils # 23.1 K/mm3 (1.8-7.8); Neutrophils % 91.3 % (37.0-80.0); Platelet Count 526 K/mm3 (142-424); Red Cell Distribution Width 13.6 % (11.5-17.5); White Blood Count 25.3 K/mm3 (4.8-10.8)
[2024-07-13 07:02] LABS: MANUAL DIFFERENTIAL MANUAL DIFFERENTIAL (MANUAL DIFF)
[2024-07-13 07:18] LABS: Magnesium 2.2 mg/dl (1.6-2.3); Phosphorous 4.1 mg/dl (2.5-4.5)
--- NOTE | 2024-07-13 07:20 | PC.NURSE ---
Pt is alert and oriented x4 and currently tolerating RA well. Pt pain has been controlled this shift with frequent doses. pt treated per MAR. Pt NG remains @ 59. Pt wound vac remains in place and has had issues with the blockage alarm this shift. Pt did rest at times and remains pleasant. No other changes to note at this time.
[2024-07-13 08:22] LABS: Lymphocytes % 11 % (10-50); Monocytes % 1 % (2-9); Neutrophils % 88 % (42-76); Platelet Estimate Slight Increase; Total Cells Counted 100
[2024-07-13 08:23] LABS: RBC Morphology Normal
--- NOTE | 2024-07-13 08:23 | P.PN_ITS ---
Subjective Narrative: Patient states that he actually feels better. No nausea. Taking some ice chips. Voiding without difficulty. Unaware of any passage of flatus. No bowel movements. There has been some issues with the VAC device showing blockage error. Wound drainage appears serous. Notable leukocytosis today. Exam Data for Last 24 hours Vital signs and Labs for Last 24 Hours: Temp Pulse Resp BP Pulse Ox O2 Del Method O2 Flow Rate 97.8 F 74 16 111/57 L 93 L Room Air 2.5 07/13/24 04:00 07/13/24 04:00 07/13/24 04:00 07/13/24 04:00 07/13/24 04:00 07/13/24 07:00 07/09/24 08:00 FiO2 2 07/06/24 14:00 Laboratory Results - last 24 hr 07/12/24 : Urine Color Yellow, Urine Appearance Clear, Urine pH 5.0, Ur Specific [place] 1.015, Urine Protein Negative, Urine Glucose (UA) Negative, Urine Ketones Negative, Urine Blood Negative, Urine Nitrate Negative, Urine Bilirubin Negative, Urine Urobilinogen 1.0, Ur Leukocyte Esterase Negative, Urine RBC 3-5, Urine WBC Occasional, Ur Squamous Epith Cells Occasional, Urine Bacteria 1+ 07/13/24 06:20: WBC 25.3 H* D, RBC 3.80 L, Hgb 11.1 L, Hct 36.2 L, MCV 95.3 H, MCH 29.3, MCHC 30.8 L, RDW 13.6, Plt Count 526 H, MPV 9.2, Neut % (Auto) 91.3 H, Lymph % (Auto) 4.7 L, [place] % (Auto) 3.8, Eos % (Auto) 0.1, Baso % (Auto) 0.1, Neut # (Auto) 23.1 H, Lymph # (Auto) 1.2, [place] # (Auto) 1.0, Eos # (Auto) 0.0, Baso # (Auto) 0.0, Sodium 135 L, Potassium 4.5, Chloride 101, Carbon Dioxide 29, Anion Gap 9.5, BUN 34 H, Creatinine 0.90, Estimated Creat Clear 96, Estimated GFR 86, Est GFR ( Amer) 105, Glucose 130 H, Calcium 8.2 L, Phosphorus 4.1, Magnesium 2.2, Total Bilirubin 0.8, AST 41 D, ALT 148 H D, Alkaline Phosphatase 104, Total Protein 6.0 L, Albumin 3.0 L, Globulin 3.0, Albumin/Globulin Ratio 1.0 L I & O for Last 24 hours: Intake & Output 07/10/24 07/11/24 07/12/24 07/13/24 11:59 11:59 11:59 11:59 Intake Total 1752 / 1752 1097 / 1097 780 / 780 1600 / 1600 Output Total 1825 / 1825 900 / 900 400 / 400 2049 / 2049 Balance -73 / -73 197 / 197 380 / 380 -450 / -450 Weight 176 lb 3.2 oz 176 lb 3.2 oz 176 lb 3.165 oz 170 lb Microbiology Reports for the Last 24 Hours: Microbiology 07/12/24 Unknown Abdomen Gram Stain - Final *Routine Abdominal Exam Abdominal: Present soft and tenderness Comments: Incisional tenderness. Progress Note: A&P Assessment and plan (1) Bacteremia: Status: Acute (2) Ileus, postoperative: Status: Acute (3) Diarrhea: Status: Acute (4) S/P exploratory laparotomy: Status: Inactive (5) CAD (coronary artery disease), [place] coronary artery: Status: Acute (6) History of heart attack: Status: Inactive (7) Depression: Status: Acute (8) Abdominal wound dehiscence: Status: Acute Assessment and Plan Assessment and Plan for All Diagnoses:: Change VAC pump today. If issue not resolved may need to change the dressing. Monitor closely.
[2024-07-13] MEDS: SIMETHICONE 40MG/0.6ML DROPS; 30ML BOTTLE 2.4 ML PO ×3 (08:29→21:37)
[2024-07-13] MEDS: ENOXAPARIN 40MG/0.4ML SYRINGE 40 MG SQ (09:20)
[2024-07-13] MEDS: FLUOXETINE 20MG CAPSULE 20 MG PO (09:20)
--- NOTE | 2024-07-13 11:01 | XR_ITS ---
FINAL REPORT CLINICAL HISTORY: OBSTRUCTION COMPARISON: 07/04/2024 FINDINGS: Chest: The heart and mediastinal within normal limits. The lungs are clear. There is no pneumothorax. Osseous structures are unremarkable. Abdomen: AP and upright views of the abdomen were obtained. NG tube is present in the stomach. Atelectasis is noted at the right lung base. Right PICC line is present in is looped upon itself in the right internal jugular vein. There are mildly dilated loops of small bowel in the mid abdomen in a nonspecific pattern, probably due to postoperative ileus. No abnormal calcifications are identified. IMPRESSION: Malpositioned PICC line. Nonspecific bowel gas pattern, probably due to postoperative ileus. Reviewed, Interpreted and Dictated by Emanuel Diego MD Transcribed by Sarika Mahajan Authenticated and [facility][1]
--- NOTE | 2024-07-13 11:14 | DIET.NUTRFU ---
Reviewing nutritional status: Patient was receiving TPN which was discontinued on 07/09. Diet was changed from NPO to clear and then full liquids on 07/11, nursing indicated he tolerated well. But had some leakage from wound site. Patient was taken to sx 07/12 to clean incision area and apply wound vac. Patient did report some gas today. Continues NPO with NG tube. Reviewed labs 07/13: Na 135L, BUN 34H, albumin 3.0L. No bolus fluids provided at this time.
[2024-07-13] MEDS: KETOROLAC 30MG/ML VIAL 30 MG IV ×2 (12:34→18:24)
--- NOTE | 2024-07-13 13:27 | HMH.ITSTN ---
ATTEMPTED XRAYS , PT WAS IN PATIENTS ROOM , SPOKE TO SENIOR QA AUTOMATION ENGINEER TO CALL RADIOLOGY WHEN PT IS DONE
--- NOTE | 2024-07-13 14:36 | HMH.PTWOUND ---
Rehab Inpt Wound Evaluation Rehab IP Wound Evaluation Start: 07/13/24 10:57 Freq: ONCE Status: Active Protocol: Document 07/13/24 14:28 DANETTE (Rec: 07/13/24 14:36 DANETTE [id number]) Rehab PT Wound Assessment Subjective Subjective H&P: Mr. Up is a 58-year- old gentleman who presented to the ER and found to have complete bowel obstruction with peritonitis in 06/17/2024. Underwent emergent laparotomy with obstruction of distal jejunum, lysis of adhesions and bowel resection. Was discharged on 06/24 after being able to tolerate advancement of diet and having bowel movements. Presented to the ER over the weekend and then again to surgery clinic for follow-up today with recurrent nausea and vomiting. On the fourth found to have some superficial dehiscence of the upper aspect of his incision with serous drainage. Wound was evaluated today in surgery clinic and packed, concern for seroma, low concern for infection. Continuing to have bilious emesis however and diarrhea daily. Due to the fact that he is unable to keep anything down, continuing to have GI symptoms, medicine was consulted for admission and further management. CT scan obtained on 06/28 in the ER that revealed distended loops of bowel with air-fluid levels. Concern for ileus. Pt now S/P Abdominal wound I&D with wound VAC dressing in place. Wound Medial Abdomen Wound Type Incision Is This a Chronic Wound No Wound Length (cm) 6.1 Wound Width (cm) 4.0 Wound Depth (cm) 3.8 Wound Bed Appearance Beefy Red,[place] Wound Margins Description Well Defined Surrounding Tissue Appearance [place] Wound Drainage Description Brown,Green Drainage Amount Copious Drainage Odor No Odor Dressing Status Changed Packing Type Woundvac Sponge Primary Dressing Transparent Drape Wound Debridement Method Gauze,Mechanical Wound Debridement Amount of Tissue Minimal Removed Dressing Change Patient Tolerance Tolerated Well Plan/Recommendation Comment Wound drainage has no odor and appears very much like bile- like or gastric liquid. No bleeding currently noted and wound bed itself appears healthy in nature. VAC sponge reapplied with adequate seal noted and pump operating as expected. Will continue to follow for dressing changes every 48-72 hours as needed. Sutures in place in the superior incision were protected with petroleum gauze . Eval Complexity Eval Charge Codes 39080 - High Complexity PHYSICIAN CERTIFICATION: I certify the specified therapy services for [place] are required, authorized, and reviewed every 30 days.
--- NOTE | 2024-07-13 17:35 | EXP.ACUTE.PN ---
Subjective *Date: 07/13/24 *Time: 17:39 Interval history: Patient admits to flatus today, but states last bowel movement occurred overnight. Patient having issues with wound VAC. Wound VAC changed twice today. Tolerating clears and ice chips without abdominal discomfort. present at time evaluation with Dr. Yeung multiple times today. Medical Exam Vital signs and Labs for Last 24 Hours: Vital Signs Temp Pulse Resp BP Pulse Ox O2 Del Method 07/13/24 16:00 99.6 F 77 20 108/61 L 94 L Room Air 07/13/24 12:00 98.6 F 76 18 135/66 95 Room Air 07/13/24 08:00 97.6 F 77 20 116/63 94 L Room Air 07/13/24 07:00 Room Air 07/13/24 05:00 Room Air 07/13/24 04:00 97.8 F 74 16 111/57 L 93 L Room Air 07/13/24 03:00 Room Air 07/13/24 01:05 98.0 F 80 20 108/69 L 93 L Room Air 07/13/24 01:00 Room Air 07/13/24 00:05 98.1 F 85 18 113/74 92 L Room Air 07/12/24 23:05 98.1 F 83 20 112/60 91 L Room Air 07/12/24 23:00 Room Air 07/12/24 22:05 99.0 F 94 H 18 113/64 91 L Room Air 07/12/24 21:05 99.3 F 89 20 125/68 91 L Room Air 07/12/24 21:00 Room Air 07/12/24 20:35 98.9 F 83 18 114/64 90 L Room Air 07/12/24 20:05 98.7 F 88 18 112/67 90 L Room Air 07/12/24 20:00 93 L Room Air 07/12/24 19:35 98.7 F 89 18 118/62 92 L Room Air 07/12/24 19:05 98.9 F 88 20 116/66 93 L Room Air 07/12/24 18:50 92 H 16 124/68 93 L Room Air 07/12/24 18:35 98 H 18 126/72 90 L Room Air 07/12/24 18:20 98.7 F 99 H 18 101/71 L 90 L Room Air 07/12/24 17:55 100 H 15 115/53 L 95 Room Air 07/12/24 17:45 101 H 15 132/56 L 95 Room Air Intake and Output 07/13/24 07/13/24 07/13/24 07:59 15:59 23:59 Output Total 1325 / 1325 Balance -1325 / -1325 Output: Output, Urine Amount 775 / 775 Output, Gastric Drainage Amount 200 / 200 Right Nare 200 / 200 Output, Drainage Amount 350 / 350 Medial Abdomen 350 / 350 Other: Weight 77.111 kg Patient Weight 07/13/24 23:59 Weight 77.111 kg Laboratory Results - last 24 hr 07/12/24 : Urine Color Yellow, Urine Appearance Clear, Urine pH 5.0, Ur Specific [place] 1.015, Urine Protein Negative, Urine Glucose (UA) Negative, Urine Ketones Negative, Urine Blood Negative, Urine Nitrate Negative, Urine Bilirubin Negative, Urine Urobilinogen 1.0, Ur Leukocyte Esterase Negative, Urine RBC 3-5, Urine WBC Occasional, Ur Squamous Epith Cells Occasional, Urine Bacteria 1+ 07/13/24 06:20: WBC 25.3 H* D, RBC 3.80 L, Hgb 11.1 L, Hct 36.2 L, MCV 95.3 H, MCH 29.3, MCHC 30.8 L, RDW 13.6, Plt Count 526 H, MPV 9.2, Neut % (Auto) 91.3 H, Lymph % (Auto) 4.7 L, [place] % (Auto) 3.8, Eos % (Auto) 0.1, Baso % (Auto) 0.1, Neut # (Auto) 23.1 H, Lymph # (Auto) 1.2, [place] # (Auto) 1.0, Eos # (Auto) 0.0, Baso # (Auto) 0.0, Total Counted 100, Neutrophils % (Manual) 88 H, Lymphocytes % (Manual) 11, Monocytes % (Manual) 1 L, Platelet Estimate Slight increase, RBC Morphology Normal, Sodium 135 L, Potassium 4.5, Chloride 101, Carbon Dioxide 29, Anion Gap 9.5, BUN 34 H, Creatinine 0.90, Estimated Creat Clear 96, Estimated GFR 86, Est GFR ( Amer) 105, Glucose 130 H, Calcium 8.2 L, Phosphorus 4.1, Magnesium 2.2, Total Bilirubin 0.8, AST 41 D, ALT 148 H D, Alkaline Phosphatase 104, Total Protein 6.0 L, Albumin 3.0 L, Globulin 3.0, Albumin/Globulin Ratio 1.0 L I & O for Labs for Last 24 Hours: Intake & Output 07/10/24 07/11/24 07/12/24 07/13/24 23:59 23:59 23:59 23:59 Intake Total 1810 / 1810 480 / 780 1900 / 1900 Output Total 1500 / 1500 300 / 300 1025 / 1025 1325 / 1325 Balance 310 / 310 180 / 480 875 / 875 -1325 / -1325 Weight 79.923 kg 79.923 kg 79.922 kg 77.111 kg Microbiology Reports for the Last 24 Hours: Microbiology 07/12/24 Unknown Abdomen Gram Stain - Final 07/12/24 Unknown Abdomen Abscess Culture - Preliminary Head: Present normocephalic ENT: Present normal oropharynx and mucous membranes moist Comment:: NG tube in place Neck: Present normal inspection Respiratory: Present CTA bilaterally Cardiac: Present Reg Rate and Rhythm and Regular Rate GI: Present hypoactive bowel sounds Comments:: Abdominal surgical incision without signs of infection. Healing appropriately. Longitudinal [place] healing scar noted during physical exam. Rectal (male): Present deferred Extremities: Present normal inspection and full ROM Skin: Present intact and dry Assessment and Plan *Assessment and plan (1) Ileus, postoperative: Status: Acute Category: Medical Code(s): K91.89 - Other postprocedural complications and disorders of digestive system; K56.7 - Ileus, unspecified (2) Bacteremia: Status: Acute Category: Medical Code(s): R78.81 - Bacteremia (3) Post-operative pain: Status: Acute Category: Medical Code(s): G89.18 - Other acute postprocedural pain (4) Abdominal wound dehiscence: Status: Acute Category: Medical Code(s): T81.30XA - Disruption of wound, unspecified, initial encounter (5) Abdominal wound dehiscence: Status: Acute Qualifiers: Encounter type: initial encounter Qualified Code(s): T81.30XA - Disruption of wound, unspecified, initial encounter Category: Medical Code(s): T81.30XA - Disruption of wound, unspecified, initial encounter Plan 58-year-old male with PMHx of CAD s/p stent, open appendectomy, and recent bowel resection due to small bowel obstruction. Presented to surgery clinic with persistent nausea and vomiting, dehiscence of proximal portion of the surgical wound, and diarrhea. Postop day 1. Status post repeat surgery yesterday with takedown of significant adhesions. Inflammation of anastomosis. Continues to require inpatient management. Tolerating antibiotics. Developed dehiscence with drainage of surgical incision overnight. Having some pain. Discussed case with surgery, planning to return to the OR today for evaluation of wound and placement of wound VAC. Continues to require inpatient management. Problems addressed as follows: Postop ileus Transaminitis with Wound dehiscence, worsening ?07/13 NG tube drainage. Tolerating liquid diet and ice chips. Wound VAC in place. Continue to advance diet per surgery recommendations. - Initial operation 06/17 for bowel obstruction with removal of part of small bowel and end-to-end anastomosis. Repeat surgery 07/05 with new anastomosis formed and takedown of numerous adhesions. Gradual improvement in bowel function, has been tolerating full liquids for 48 hours. Developed drainage from incision overnight. Discussed case with surgery, going back for evaluation of incision today with likely placement of wound VAC. - Leave NG in place. - Zofran as needed every 8 hours for nausea -Continuing ketorolac 30 mg as needed every 6 hours for moderate pain. Increase Dilaudid frequency to 0.5 mg as needed every 2 hours given increased severity of pain. Receiving frequently, at least 6 doses in the past 24 hours. -Kidney function normal with BUN 35, creatinine 0.9. Liver function showing bilirubin 0.8, AST 107, ALT 269, alkaline phosphatase 138. Improvement after stopping TPN. Klebsiella and Citrobacter bacteremia Wound dehiscence suspicious for infection -White count increased to 10. Neutrophil predominance. Repeat CBC, CMP, magnesium ordered for the morning. -Continue ertapenem 1 g daily. Anticipate 10 days of antibiotics -Will initiate vancomycin for gram-positive coverage. Close monitoring of kidney function. Chronic conditions CAD s/p stent, Hx of heart attack depression: Resume Prozac, hold Wellbutrin. Holding statin and Plavix. SCD for DVT ppx Full code Full liquid diet Disposition: ? 07/13 patient will remain in hospital until able to tolerate. Adequate diet. Appreciate operating room surgical technologist assistance!
--- NOTE | 2024-07-13 17:40 | P.PN_ITS ---
Subjective *Date: 07/14/24 *Time: 15:49 Interval history: Patient and patient's family currently requesting transfer to [facility] or [facility] for further surgical evaluation. Admits to flatus but denies bowel movement overnight. Wound VAC working well at time of a .m. evaluation by Dr. Yeung. Denies fever/chills overnight. with family at bedside at time of multiple a.m. evaluations of patient by Dr. Yeung. Exam Data for Last 24 hours Vital signs and Labs for Last 24 Hours: Temp Pulse Resp BP Pulse Ox O2 Del Method O2 Flow Rate 99.6 F 77 20 108/61 L 94 L Room Air 2.5 07/13/24 16:00 07/13/24 16:00 07/13/24 16:00 07/13/24 16:00 07/13/24 16:00 07/13/24 16:00 07/09/24 08:00 FiO2 2 07/06/24 14:00 Laboratory Results - last 24 hr 07/12/24 : Urine Color Yellow, Urine Appearance Clear, Urine pH 5.0, Ur Specific [place] 1.015, Urine Protein Negative, Urine Glucose (UA) Negative, Urine Ketones Negative, Urine Blood Negative, Urine Nitrate Negative, Urine Bilirubin Negative, Urine Urobilinogen 1.0, Ur Leukocyte Esterase Negative, Urine RBC 3-5, Urine WBC Occasional, Ur Squamous Epith Cells Occasional, Urine Bacteria 1+ 07/13/24 06:20: WBC 25.3 H* D, RBC 3.80 L, Hgb 11.1 L, Hct 36.2 L, MCV 95.3 H, MCH 29.3, MCHC 30.8 L, RDW 13.6, Plt Count 526 H, MPV 9.2, Neut % (Auto) 91.3 H, Lymph % (Auto) 4.7 L, [place] % (Auto) 3.8, Eos % (Auto) 0.1, Baso % (Auto) 0.1, Neut # (Auto) 23.1 H, Lymph # (Auto) 1.2, [place] # (Auto) 1.0, Eos # (Auto) 0.0, Baso # (Auto) 0.0, Total Counted 100, Neutrophils % (Manual) 88 H, Lymphocytes % (Manual) 11, Monocytes % (Manual) 1 L, Platelet Estimate Slight increase, RBC Morphology Normal, Sodium 135 L, Potassium 4.5, Chloride 101, Carbon Dioxide 29, Anion Gap 9.5, BUN 34 H, Creatinine 0.90, Estimated Creat Clear 96, Estimated GFR 86, Est GFR ( Amer) 105, Glucose 130 H, Calcium 8.2 L, Phosphorus 4.1, Magnesium 2.2, Total Bilirubin 0.8, AST 41 D, ALT 148 H D, Alkaline Phosphatase 104, Total Protein 6.0 L, Albumin 3.0 L, Globulin 3.0, Albumin/Globulin Ratio 1.0 L I & O for Last 24 hours: Intake & Output 07/10/24 07/11/24 07/12/24 07/13/24 23:59 23:59 23:59 23:59 Intake Total 1810 / 1810 480 / 780 1900 / 1900 Output Total 1500 / 1500 300 / 300 1025 / 1025 1325 / 1325 Balance 310 / 310 180 / 480 875 / 875 -1325 / -1325 Weight 79.923 kg 79.923 kg 79.922 kg 77.111 kg Microbiology Reports for the Last 24 Hours: Microbiology 07/12/24 Unknown Abdomen Gram Stain - Final 07/12/24 Unknown Abdomen Abscess Culture - Preliminary *Routine HEENT Exam Head: Present normocephalic Eye: Present EOMI ENT: Present mucous membranes moist Comments: NG tube in place *Routine Neck Exam Neck: Present supple and full ROM *Routine Respiratory Exam Respiratory: Present CTA bilaterally *Routine Cardiovascular Exam Cardiovascular: Present RRR, Normal S1 and Normal S2 *Routine Abdominal Exam Abdominal: Present distended *Routine Skin Exam Skin: Present intact and dry *Routine Neurological Exam Neurological: Present alert and oriented X3 Assessment and Plan *Assessment and plan (1) Ileus, postoperative: Status: Acute Category: Medical Code(s): K91.89 - Other postprocedural complications and disorders of digestive system; K56.7 - Ileus, unspecified (2) Post-operative pain: Status: Acute Category: Medical Code(s): G89.18 - Other acute postprocedural pain (3) Abdominal wound dehiscence: Status: Acute Category: Medical Code(s): T81.30XA - Disruption of wound, unspecified, initial encounter (4) Unintentional weight loss: Status: Acute Category: Medical Code(s): R63.4 - Abnormal weight loss (5) Nausea vomiting and diarrhea: Status: Acute Category: Medical Code(s): R11.2 - Nausea with vomiting, unspecified; R19.7 - Diarrhea, unspecified (6) SBO (small bowel obstruction): Status: Acute Category: Medical Code(s): K56.609 - Unspecified intestinal obstruction, unspecified as to partial versus complete obstruction Plan 58-year-old male with PMHx of CAD s/p stent, open appendectomy, and recent bowel resection due to small bowel obstruction. Presented to surgery clinic with persistent nausea and vomiting, dehiscence of proximal portion of the surgical wound, and diarrhea. Postop day 1. Status post repeat surgery yesterday with takedown of significant adhesions. Inflammation of anastomosis. Continues to require inpatient management. Tolerating antibiotics. Developed dehiscence with drainage of surgical incision overnight. Having some pain. Discussed case with surgery, planning to return to the OR today for evaluation of wound and placement of wound VAC. Continues to require inpatient management. Problems addressed as follows: Postop ileus Transaminitis with Wound dehiscence, worsening ?07/14 patient still has NG in place. Wound VAC draining well today. Continue current management. ?07/13 NG tube drainage. Tolerating liquid diet and ice chips. Wound VAC in place. Continue to advance diet per surgery recommendations. - Initial operation 06/17 for bowel obstruction with removal of part of small bowel and end-to-end anastomosis. Repeat surgery 07/05 with new anastomosis formed and takedown of numerous adhesions. Gradual improvement in bowel function, has been tolerating full liquids for 48 hours. Developed drainage from incision overnight. Discussed case with surgery, going back for evaluation of incision today with likely placement of wound VAC. - Leave NG in place. - Zofran as needed every 8 hours for nausea -Continuing ketorolac 30 mg as needed every 6 hours for moderate pain. Increase Dilaudid frequency to 0.5 mg as needed every 2 hours given increased severity of pain. Receiving frequently, at least 6 doses in the past 24 hours. -Kidney function normal with BUN 35, creatinine 0.9. Liver function showing bilirubin 0.8, AST 107, ALT 269, alkaline phosphatase 138. Improvement after stopping TPN. Klebsiella and Citrobacter bacteremia Wound dehiscence suspicious for infection -White count increased to 10. Neutrophil predominance. Repeat CBC, CMP, magnesium ordered for the morning. -Continue ertapenem 1 g daily. Anticipate 10 days of antibiotics -Will initiate vancomycin for gram-positive coverage. Close monitoring of kidney function. Chronic conditions CAD s/p stent, Hx of heart attack depression: Resume Prozac, hold Wellbutrin. Holding statin and Plavix. SCD for DVT ppx Full code Full liquid diet Disposition ?07/14/2024 family and patient requesting transfer to [facility] or [facility] for further surgical evaluation. Currently discussing patient/family request with neurosurgical nurse practitioner.
--- NOTE | 2024-07-13 19:47 | PC.NURSE ---
patient having less pain today. Wound vac dressing changed and no issues after, Patient's pain relieved with medication. patient a&ox4 and vss
--- NOTE | 2024-07-13 20:35 | PC.NURSE ---
note per LCrump, pt called out and stated that wound vac dressing was leaking, dressing is leaking around suction device and small opening to the right side of the dressing, gauze applied at this time, attempted to reach Ya Mcgregor APRN, she was with another patient in emergency situation as it took priority
--- NOTE | 2024-07-13 20:44 | PC.NURSE ---
note per LCrump, contacted Dr. Lui at this time to notify about wound vac leaking, Dr. Lui gave orders to attempt to reseal dressing with tegaderm to continue suction, Dr. Lui also advised that if attempts to reseal dressing were unsuccessful to consider having provider on staff to replace wound vac and dressing
--- NOTE | 2024-07-13 20:58 | PC.NURSE ---
note per LCrump, dressing reinforced with 2 large tegaderm and vac is functioning normally with adequate suction, abd pads added for possible leakage
[2024-07-14] VITALS: BP 120/60; PULSE 92; RESP 16; TEMP 36.9; O2SAT 91
[2024-07-14] MEDS: KETOROLAC 30MG/ML VIAL 30 MG IV (00:18)
--- NOTE | 2024-07-14 00:20 | PC.NURSE ---
note per LCrump, pt up to BR, upon returning to bed pt called out to WC and stated that his NG fell out, 2 attempts to insert NG unsuccessful, pt not able to tolerate advancement
--- NOTE | 2024-07-14 00:28 | PC.NURSE ---
Addendum entered by Lindsay Kate RN 07/14/24 09:57: note per LCrump Original Note: Ya Mcgregor APRN contacted about possible wound vac replacement d/t continuous blockage alarm Q 15 minutes (with unsuccessful troubleshooting), and leaking around dressing, and to make aware of pt tolerance to placement of NG
--- NOTE | 2024-07-14 00:58 | PC.NURSE ---
note per BAILEY Guillermo APRN in pt room at this time for wound vac replacement, wound vac replaced by ELVIA AVALOS, and functioning properly at this time, 300 mL output from wound vac at this time
--- NOTE | 2024-07-14 01:20 | PC.NURSE ---
note per LCrump, lidocaine 2 % oral topical applied to NG tube for insertion
[2024-07-14] MEDS: HYDROMORPHONE 2MG/ML SYRINGE 0.5 MG IV ×7 (01:30→22:53)
--- NOTE | 2024-07-14 01:35 | PC.NURSE ---
Addendum entered by Lindsay Kate RN 07/14/24 09:58: note per LCrump Original Note: NG placed @ 60, KUB ordered and obtained, gastric content returned, awaiting confirmation and placement
[2024-07-14 04:00] VITALS: BMI 26.6
[2024-07-14] MEDS: METOCLOPRAMIDE HCL 10MG/2ML VIAL 5 MG IVP ×4 (04:35→22:41)
[2024-07-14] MEDS: VANCOMYCIN/WATER FOR INJ (PEG) 1.25 GM/250 ML PIGGYBACK IV ×2 (04:37→16:54)
--- NOTE | 2024-07-14 05:00 | PC.NURSE ---
note per LCrump, pt is resting at this time with eyes closed, wound vac to abdomen is noted to be functioning properly and no distress noted
[2024-07-14 06:29] LABS: Chloride 98 mmol/L (98-107); Sodium 133 mmol/L (136-145)
[2024-07-14 06:30] LABS: Potassium 3.8 mmoL/L (3.5-5.1)
[2024-07-14 06:32] LABS: Blood Urea Nitrogen 37 mg/dl (9-20); Creatinine Clearance Estimated 87 mL/min (50-200); Estimated Glomerular Filt Rate 76 ml/min (>60); GFR (African American) 93 ML/MIN (>60)
[2024-07-14 06:33] LABS: Anion Gap 8.8 mEq/L (5-15); Calcium 7.7 mg/dl (8.4-10.2); Carbon Dioxide 30 mmol/L (22.0-30.0); Glucose 109 mg/dl (74-100)
[2024-07-14 08:00] VITALS: BP 112/54; PULSE 68; RESP 17; TEMP 36.6; O2SAT 93
--- NOTE | 2024-07-14 08:15 | XR_ITS ---
PROCEDURE INFORMATION: Exam: XR Abdomen Exam date and time: 07/14/2024 1:59 AM Age: 58 years old Clinical indication: Device placement; Gi device; Nasogastric tube; Additional info: Ng tube placement TECHNIQUE: Imaging protocol: Radiologic exam of the abdomen. Views: Frontal supine view of the abdomen. 1 View. COMPARISON: No relevant prior studies available. FINDINGS: Tubes, catheters and devices: The NG tube is in the stomach. Gastrointestinal tract: Air-filled loops of colon are seen throughout the abdomen in a nonspecific pattern. Bones/joints: Unremarkable. IMPRESSION: The NG tube is in the stomach. Air-filled loops of colon are seen throughout the abdomen in a nonspecific pattern.
--- NOTE | 2024-07-14 08:37 | EXP.SURG.PN ---
Subjective Narrative: Nasogastric tube replaced last night after inadvertent removal. The patient states that things are more bound up right now . His vacuum dressing was replaced by the Hospitalist Nurse Practitioner and is now functioning appropriately. The patient and his are concerned that he might be getting dehydrated . They plan to discuss the ongoing management of IV fluids/TPN with the primary service. Exam Data for Last 24 hours Vital signs and Labs for Last 24 Hours: Temp Pulse Resp BP Pulse Ox O2 Del Method O2 Flow Rate 98.4 F 92 H 16 120/60 91 L Room Air 2.5 07/14/24 00:00 07/14/24 00:00 07/14/24 00:00 07/14/24 00:00 07/14/24 00:00 07/14/24 00:00 07/09/24 08:00 FiO2 2 07/06/24 14:00 Laboratory Results - last 24 hr 07/14/24 05:57: Sodium 133 L, Potassium 3.8, Chloride 98, Carbon Dioxide 30, Anion Gap 8.8, BUN 37 H, Creatinine 1.00, Estimated Creat Clear 87, Estimated GFR 76, Est GFR ( Amer) 93, Glucose 109 H, Calcium 7.7 L I & O for Last 24 hours: Intake & Output 07/11/24 07/12/24 07/13/24 07/14/24 11:59 11:59 11:59 11:59 Intake Total 1097 / 1097 780 / 780 1600 / 1600 Output Total 900 / 900 400 / 400 2049 / 2049 Balance 197 / 197 380 / 380 -450 / -450 Weight 176 lb 3.2 oz 176 lb 3.165 oz 170 lb 170 lb Microbiology Reports for the Last 24 Hours: Microbiology 07/12/24 Unknown Abdomen Gram Stain - Final 07/12/24 Unknown Abdomen Abscess Culture - Preliminary Constitutional Constitutional: no acute distress *Routine Respiratory Exam Respiratory: Absent respiratory distress *Routine Cardiovascular Exam Cardiovascular: Absent tachycardia *Routine Abdominal Exam Comments: Vacuum dressing in place. No obvious leak. No abdominal wall cellulitis. Progress Note: A&P Assessment and plan (1) Ileus, postoperative: Status: Acute (2) Abdominal wound dehiscence: Status: Acute (3) S/P exploratory laparotomy: Status: Inactive (4) Abdominal wound dehiscence: Status: Acute Assessment and Plan Assessment and Plan for All Diagnoses:: Current VAC dressing functional. Continue nasogastric decompression for now. Await return of bowel function.
[2024-07-14] MEDS: ENOXAPARIN 40MG/0.4ML SYRINGE 40 MG SQ (08:49)
[2024-07-14] MEDS: FLUOXETINE 20MG CAPSULE 20 MG PO (08:49)
[2024-07-14] MEDS: SIMETHICONE 40MG/0.6ML DROPS; 30ML BOTTLE 2.4 ML PO ×3 (08:51→22:42)
[2024-07-14] MEDS: 0.9 % SODIUM CHLORIDE 1000ML 1,000 ML 100 ML IV ×2 (11:34→22:41)
[2024-07-14 14:18] LABS: Basophils % 0.1 % (0.1-2.0); Eosinophils # 0.1 K/mm3 (0.0-0.4); Eosinophils % 0.6 % (0.1-12.0); Hematocrit 31.6 % (42.0-52.0); Lymphocytes # 1.1 K/mm3 (0.7-4.5); Lymphocytes % 7.1 % (10-50); Mean Corpuscular HGB Conc 30.4 g/dL (31.8-35.4); Mean Corpuscular Volume 98.8 fl (80-94); Mean Platelet Volume 10.6 fl (7.4-10.4); Monocytes # 0.5 K/mm3 (0.1-1.0); Monocytes % 3.7 % (1.7-9.3); Neutrophils # 12.9 K/mm3 (1.8-7.8); Neutrophils % 88.5 % (37.0-80.0); Platelet Count 487 K/mm3 (142-424); Red Blood Count 3.19 M/mm3 (4.60-6.20); Red Cell Distribution Width 13.5 % (11.5-17.5); White Blood Count 14.6 K/mm3 (4.8-10.8)
[2024-07-14 14:56] LABS: MANUAL DIFFERENTIAL MANUAL DIFFERENTIAL (MANUAL DIFF)
[2024-07-14 14:57] LABS: Hemoglobin 9.6 g/dL (14.1-18.0)
[2024-07-14 15:14] LABS: Lymphocytes % 15 % (10-50); Monocytes % 4 % (2-9); Neutrophils % 81 % (42-76); Platelet Estimate Slight Increase; Total Cells Counted 100
[2024-07-14 15:15] LABS: RBC Morphology Normal
--- NOTE | 2024-07-14 15:39 | DIET.NUTRFU ---
Patient continues on NPO diet with NG tube in place. NS started today, will recommend to restart TPN if diet cannot be advanced by tomorrow. He did report some gas today and he was planning to work with therapy today also. Labs reviewed. NG output yesterday was 200ml and wound vac 350ml.
[2024-07-14] MEDS: PHA TO NURSING INSTRUCTION 1 EACH NOTAPPLIC (15:51)
[2024-07-14 16:00] VITALS: BP 107/88; PULSE 74; RESP 17; TEMP 37.1; O2SAT 96
[2024-07-14 16:46] LABS: Vancomycin,Trough 9.7 ug/mL (5.0-10.0)
--- NOTE | 2024-07-14 18:44 | PC.NURSE ---
PT HAS DONE FAIR THIS SHIFT. REPORTS THAT HE IS VERY TIRED AND JUST WANTS TO FEEL BETTER. PT AND FAMILY EXPRESSED THEIR DESIRE TO BE TRANSFERED TO EITHER [facility] OR .
[2024-07-14 20:00] VITALS: O2SAT 91
[2024-07-14 20:32] VITALS: BP 102/57; PULSE 69; RESP 16; TEMP 36.9; O2SAT 91
[2024-07-14] MEDS: MELATONIN 5MG TABLET 10 MG PO (20:34)
[2024-07-15] VITALS: BP 110/58; PULSE 71; RESP 16; TEMP 37.1; O2SAT 93
[2024-07-15 04:00] VITALS: BMI 26.6
[2024-07-15] MEDS: HYDROMORPHONE 2MG/ML SYRINGE 0.5 MG IV ×6 (04:15→22:17)
[2024-07-15] MEDS: METOCLOPRAMIDE HCL 10MG/2ML VIAL 5 MG IVP ×3 (04:50→16:30)
[2024-07-15] MEDS: VANCOMYCIN/WATER FOR INJ (PEG) 1.25 GM/250 ML PIGGYBACK IV (04:51)
--- NOTE | 2024-07-15 05:33 | PC.NURSE ---
Pt has rested on and off throughout shift. He has been medicated with pain meds after reports of pain rating at 9, relieved with dilaudid. Wound vac dressing intact to midline with what appears moderate amount of dark brown drainage in vac box. Scant amount return via NG. Pt voices desire to be transferred to another hospital for a 2nd opinion.
[2024-07-15 06:36] LABS: Basophils % 0.1 % (0.1-2.0); Eosinophils % 0.1 % (0.1-12.0); Hematocrit 28.7 % (42.0-52.0); Lymphocytes # 0.9 K/mm3 (0.7-4.5); Lymphocytes % 9.2 % (10-50); Mean Corpuscular HGB Conc 31.3 g/dL (31.8-35.4); Mean Corpuscular Hemoglobin 30.3 pg (27.0-31.2); Mean Corpuscular Volume 96.7 fl (80-94); Mean Platelet Volume 8.9 fl (7.4-10.4); Monocytes # 0.4 K/mm3 (0.1-1.0); Monocytes % 4.4 % (1.7-9.3); Neutrophils # 8.6 K/mm3 (1.8-7.8); Neutrophils % 86.2 % (37.0-80.0); Platelet Count 492 K/mm3 (142-424); Red Blood Count 2.97 M/mm3 (4.60-6.20); Red Cell Distribution Width 13.7 % (11.5-17.5)
[2024-07-15 06:40] LABS: MANUAL DIFFERENTIAL MANUAL DIFFERENTIAL (MANUAL DIFF)
[2024-07-15 06:42] VITALS: BP 106/52; PULSE 69; RESP 16; TEMP 37.2; O2SAT 94
[2024-07-15 07:10] LABS: Lymphocytes % 12 % (10-50); Monocytes % 2 % (2-9); Neutrophils % 86 % (42-76); Total Cells Counted 100
[2024-07-15 07:11] LABS: Hypochromasia 1+
[2024-07-15 07:12] LABS: Platelet Estimate Slight Increase
--- NOTE | 2024-07-15 07:20 | PC.NURSE ---
CANISTER ON WOUND VAC IS FULL. CANISTER CHANGED AT THIS TIME
--- NOTE | 2024-07-15 07:54 | XR_ITS ---
FINAL REPORT CLINICAL HISTORY: BOWEL OBSTRUCTION FINDINGS: A PA view of the chest was obtained. The mediastinum is unremarkable. There is bibasilar atelectasis. There is no free air beneath the diaphragm. The NG tube tip terminates at the GE junction. The side hole lies above the GE junction. There are few air-filled loops of small bowel which are mildly distended. The bowel gas pattern is nonspecific. No definite obstructive pattern is identified. IMPRESSION: Nonspecific bowel gas pattern. Reviewed, Interpreted and Dictated by Emanuel Diego MD Transcribed by Keyla Marquez Authenticated and [facility]
[2024-07-15 08:00] VITALS: BP 108/57; PULSE 64; RESP 16; TEMP 36.6; O2SAT 94
--- NOTE | 2024-07-15 08:39 | EXP.SURG.PN ---
Subjective Narrative: Patient without any new complaints. Denies nausea. States that he is passing a lot of gas. He has had relatively minimal output from his NG tube (300 cc). However, he has had a notable amount of greenish drainage from his VAC dressing (800 cc). Exam Data for Last 24 hours Vital signs and Labs for Last 24 Hours: Temp Pulse Resp BP Pulse Ox O2 Del Method O2 Flow Rate 97.9 F 64 16 108/57 L 94 L Room Air 2.5 07/15/24 08:00 07/15/24 08:00 07/15/24 08:00 07/15/24 08:00 07/15/24 08:00 07/15/24 06:49 07/09/24 08:00 FiO2 2 07/06/24 14:00 Laboratory Results - last 24 hr 07/14/24 05:51: WBC 14.6 H D, RBC 3.19 L, Hgb 9.6 L D, Hct 31.6 L, MCV 98.8 H, MCH 30.0, MCHC 30.4 L, RDW 13.5, Plt Count 487 H, MPV 10.6 H, Neut % (Auto) 88.5 H, Lymph % (Auto) 7.1 L, [place] % (Auto) 3.7, Eos % (Auto) 0.6, Baso % (Auto) 0.1, Neut # (Auto) 12.9 H, Lymph # (Auto) 1.1, [place] # (Auto) 0.5, Eos # (Auto) 0.1, Baso # (Auto) 0.0, Total Counted 100, Neutrophils % (Manual) 81 H, Lymphocytes % (Manual) 15, Monocytes % (Manual) 4, Platelet Estimate Slight increase, RBC Morphology Normal 07/14/24 15:35: Vancomycin Trough 9.7 07/14/24 20:30: Vancomycin Peak 20.0 07/15/24 06:25: WBC 10.0 D, RBC 2.97 L, Hgb 9.0 L, Hct 28.7 L, MCV 96.7 H, MCH 30.3, MCHC 31.3 L, RDW 13.7, Plt Count 492 H, MPV 8.9, Neut % (Auto) 86.2 H, Lymph % (Auto) 9.2 L, [place] % (Auto) 4.4, Eos % (Auto) 0.1, Baso % (Auto) 0.1, Neut # (Auto) 8.6 H, Lymph # (Auto) 0.9, [place] # (Auto) 0.4, Eos # (Auto) 0.0, Baso # (Auto) 0.0, Total Counted 100, Neutrophils % (Manual) 86 H, Lymphocytes % (Manual) 12, Monocytes % (Manual) 2, Platelet Estimate Slight increase, Hypochromasia 1+ I & O for Last 24 hours: Intake & Output 07/12/24 07/13/24 07/14/24 07/15/24 11:59 11:59 11:59 11:59 Intake Total 780 / 780 1600 / 1600 1690 / 1690 Output Total 400 / 400 2050 / 2050 500 / 500 2965 / 2965 Balance 380 / 380 -450 / -450 -500 / -500 -1275 / -1275 Weight 176 lb 3.165 oz 170 lb 170 lb 169 lb 14.4 oz Microbiology Reports for the Last 24 Hours: Microbiology 07/12/24 Unknown Abdomen Gram Stain - Final 07/12/24 Unknown Abdomen Abscess Culture - Final Staphylococcus epidermidis *Routine Abdominal Exam Abdominal: Present soft Comments: VAC dressing with drainage drainage, seemingly with a leak within the VAC dressing. Progress Note: A&P Assessment and plan (1) Ileus, postoperative: Status: Acute (2) Post-operative pain: Status: Acute (3) Abdominal wound dehiscence: Status: Acute (4) Unintentional weight loss: Status: Acute (5) Nausea vomiting and diarrhea: Status: Acute (6) SBO (small bowel obstruction): Status: Acute Assessment and Plan Assessment and Plan for All Diagnoses:: Despite the findings on his CT scan from earlier this week given the clinical scenario there is concern for development of enterocutaneous fistula. I discussed the case with the hospitalist service. This would be most appropriately managed at a tertiary facility. I did discuss this with the patient. Plan will be to initiate transfer proceedings.
[2024-07-15] MEDS: FLUOXETINE 20MG CAPSULE 20 MG PO (08:49)
[2024-07-15] MEDS: ENOXAPARIN 40MG/0.4ML SYRINGE 40 MG SQ (08:49)
[2024-07-15] MEDS: SIMETHICONE 40MG/0.6ML DROPS; 30ML BOTTLE 2.4 ML PO ×3 (08:50→21:02)
[2024-07-15] MEDS: KETOROLAC 30MG/ML VIAL 30 MG IV (09:11)
--- NOTE | 2024-07-15 10:28 | P.PNANES_ITS ---
[facility] Anesthesia Record Part II Anesthesia Record Part II Discharge Time: 17:55 Destination: Second Floor PACU nurse assessment reviewed?: Yes Patient Condition:: Good Anesthesia Complications:: None Swallowing reflex intact?: Yes Airway Patency: Patent Cyanosis?: No Blood Pressure: 115/53 SaO2: 95 Respiratory Rate: 15 Pulse Rate: 100 Temperature: 99.4 F Mental Status: Alert & Oriented Pain level:: 0 Nausea and/or vomitting:: None Intake, IV Amount: 0 Hydration: Adequate
[2024-07-15 10:29] VITALS: BP 115/53; PULSE 100; RESP 15; TEMP 37.4; O2SAT 95
[2024-07-15] MEDS: 0.9 % SODIUM CHLORIDE 1000ML 1,000 ML 100 ML IV (11:01)
[2024-07-15] MEDS: [UNRECOGNIZED DRUG - REMARK] 25 ML IV (11:41)
--- NOTE | 2024-07-15 11:41 | CT_ITS ---
FINAL REPORT TECHNIQUE: After the administration of oral and intravenous contrast, axial images were obtained through the abdomen and pelvis by computed tomography. The study was performed with techniques to keep radiation dose as low as reasonably achievable, (ALARA). Individual dose reduction techniques using automated exposure control or adjustment of mA and/or kV according to the patient's size were employed. CLINICAL HISTORY: Eval for high output enterocolonic fistula COMPARISON: 07/12/2024 FINDINGS: Abdomen: Mild bibasilar consolidations are noted. There are calcified granulomas at the lung bases. Calcified granulomas are noted in the liver and spleen. The liver parenchyma is homogeneous. The gallbladder is present. The spleen is unremarkable. There is a left adrenal mass measuring 2.9 cm which is stable. The right adrenal gland is unremarkable. The kidneys are unremarkable. The aorta is normal in caliber. There is no free fluid or adenopathy. Pelvis: The appendix is not identified. There are multiple distended contrast opacified loops of proximal small bowel measuring up to 3.8 cm in diameter. There is a partially loculated fluid collection within the mesentery measuring 9.0 x 5.3 cm. There is abnormal mucosal thickening within the proximal small bowel. Air in the urinary bladder is likely iatrogenic. There is no free fluid or adenopathy. There is a midline skin incision near the umbilicus. Contrast opacification of the tract extends to extraluminal contrast. This is well seen on images 79-86 of series 2. There appears to be a defect within the bowel adjacent to the anastomosis in the upper right anterior pelvis which appears to be the source of the leak. There is some loculated fluid with air bubbles in the anterior portion of the left hemiabdomen measuring up to 9.2 x 3.0 cm. The collection and air within the collection are new from prior. IMPRESSION: Leaking contrast extending into the midline anterior abdominal wall incision, probably arising from anastomosis in the upper anterior right hemipelvis. Fluid collections in left hemiabdomen and mesentery probably related to leak. Reviewed, Interpreted and Dictated by Emanuel Diego MD Transcribed by Sarika Mahajan Authenticated and . [facility]
--- NOTE | 2024-07-15 11:49 | P.PN_ITS ---
Subjective *Date: 07/15/24 *Time: 11:55 Interval history: Patient admits to continued flatus, but denies bowel movement. Patient still having slight abdominal discomfort virtually unchanged from yesterday examination. TPN being restarted today. Patient also admits to speaking with surgeon today about potential transfer arrangements. Medical Exam Vital signs and Labs for Last 24 Hours: Vital Signs Temp Pulse Resp BP Pulse Ox O2 Del Method 07/15/24 10:29 15 07/15/24 09:00 Room Air 07/15/24 08:00 Room Air 07/15/24 08:00 97.9 F 64 16 108/57 L 94 L 07/15/24 07:30 Room Air 07/15/24 06:49 Room Air 07/15/24 06:42 99.0 F 69 16 106/52 L 94 L Room Air 07/15/24 05:00 Room Air 07/15/24 03:00 Room Air 07/15/24 01:00 Room Air 07/15/24 00:00 Room Air 07/15/24 00:00 98.7 F 71 16 110/58 L 93 L Room Air 07/14/24 23:00 Room Air 07/14/24 21:00 Room Air 07/14/24 20:32 98.5 F 69 16 102/57 L 91 L Room Air 07/14/24 20:00 91 L Room Air 07/14/24 18:38 Room Air 07/14/24 17:00 Room Air 07/14/24 16:00 98.8 F 74 17 107/88 L 96 Room Air 07/14/24 16:00 Room Air 07/14/24 15:00 Room Air 07/14/24 13:00 Room Air Intake and Output 07/14/24 07/15/24 07/15/24 23:59 07:59 15:59 Intake Total 690 / 1190 1000 / 1000 0 / 1000 Output Total 1290 / 2765 900 / 900 Balance -600 / -1575 100 / 100 0 / 100 Intake: Intake, Total IV Amount 690 / 1190 1000 / 1000 0 / 1000 0.9 % Sodium Chloride 1000ML 1, 690 / 1190 1000 / 1000 000 ml @ 100 mls/hr IV .Q10H [facility] Rx#:[id number] Output: Output, Urine Amount 940 / 2115 400 / 400 Output, Gastric Drainage Amount 350 / 350 Right Nare 350 / 350 Output, Drainage Amount 500 / 500 Medial Abdomen 500 / 500 Other: Number of Unmeasured Voids 0 0 Weight 77.065 kg Patient Weight 07/15/24 23:59 Weight 77.065 kg Laboratory Results - last 24 hr 07/14/24 05:51: WBC 14.6 H D, RBC 3.19 L, Hgb 9.6 L D, Hct 31.6 L, MCV 98.8 H, MCH 30.0, MCHC 30.4 L, RDW 13.5, Plt Count 487 H, MPV 10.6 H, Neut % (Auto) 88.5 H, Lymph % (Auto) 7.1 L, [place] % (Auto) 3.7, Eos % (Auto) 0.6, Baso % (Auto) 0.1, Neut # (Auto) 12.9 H, Lymph # (Auto) 1.1, [place] # (Auto) 0.5, Eos # (Auto) 0.1, Baso # (Auto) 0.0, Total Counted 100, Neutrophils % (Manual) 81 H, Lymphocytes % (Manual) 15, Monocytes % (Manual) 4, Platelet Estimate Slight increase, RBC Morphology Normal 07/14/24 15:35: Vancomycin Trough 9.7 07/14/24 20:30: Vancomycin Peak 20.0 07/15/24 06:25: WBC 10.0 D, RBC 2.97 L, Hgb 9.0 L, Hct 28.7 L, MCV 96.7 H, MCH 30.3, MCHC 31.3 L, RDW 13.7, Plt Count 492 H, MPV 8.9, Neut % (Auto) 86.2 H, Lymph % (Auto) 9.2 L, [place] % (Auto) 4.4, Eos % (Auto) 0.1, Baso % (Auto) 0.1, Neut # (Auto) 8.6 H, Lymph # (Auto) 0.9, [place] # (Auto) 0.4, Eos # (Auto) 0.0, Baso # (Auto) 0.0, Total Counted 100, Neutrophils % (Manual) 86 H, Lymphocytes % (Manual) 12, Monocytes % (Manual) 2, Platelet Estimate Slight increase, Hypochromasia 1+ I & O for Labs for Last 24 Hours: Intake & Output 07/12/24 07/13/24 07/14/24 07/15/24 23:59 23:59 23:59 23:59 Intake Total 1900 / 1900 690 / 1190 1000 / 1000 Output Total 1025 / 1025 1325 / 1325 2565 / 2765 900 / 900 Balance 875 / 875 -1325 / -1325 -1875 / -1575 100 / 100 Weight 79.922 kg 77.111 kg 77.111 kg 77.065 kg Microbiology Reports for the Last 24 Hours: Microbiology 07/12/24 Unknown Abdomen Gram Stain - Final 07/12/24 Unknown Abdomen Abscess Culture - Final Staphylococcus epidermidis Head: Present normocephalic ENT: Present normal exam Neck: Present normal inspection Respiratory: Present CTA bilaterally Cardiac: Present Reg Rate and Rhythm GI: Present soft, tenderness, guarding and diminished bowel sounds; Absent rebound Rectal (male): Present deferred (male): Present deferred Extremities: Present normal inspection and normal capillary refill Skin: Present intact and dry Assessment and Plan *Assessment and plan (1) Ileus, postoperative: Status: Acute Category: Medical Code(s): K91.89 - Other postprocedural complications and disorders of digestive system; K56.7 - Ileus, unspecified (2) SBO (small bowel obstruction): Status: Acute Category: Medical Code(s): K56.609 - Unspecified intestinal obstruction, unspecified as to partial versus c omplete obstruction (3) Bacteremia: Status: Acute Category: Medical Code(s): R78.81 - Bacteremia (4) Diarrhea: Status: Acute Category: Medical Code(s): R19.7 - Diarrhea, unspecified (5) Post-operative pain: Status: Acute Category: Medical Code(s): G89.18 - Other acute postprocedural pain (6) Abdominal wound dehiscence: Status: Acute Category: Medical Code(s): T81.30XA - Disruption of wound, unspecified, initial encounter (7) Nausea vomiting and diarrhea: Status: Acute Category: Medical Code(s): R11.2 - Nausea with vomiting, unspecified; R19.7 - Diarrhea, unspecified (8) Abdominal wound dehiscence: Status: Acute Qualifiers: Encounter type: initial encounter Qualified Code(s): T81.30XA - Disruption of wound, unspecified, initial encounter Category: Medical Code(s): T81.30XA - Disruption of wound, unspecified, initial encounter Plan 58-year-old male with PMHx of CAD s/p stent, open appendectomy, and recent bowel resection due to small bowel obstruction. Presented to surgery clinic with persistent nausea and vomiting, dehiscence of proximal portion of the surgical wound, and diarrhea. Postop day 1. Status post repeat surgery yesterday with takedown of significant adhesions. Inflammation of anastomosis. Continues to require inpatient management. Tolerating antibiotics. Developed dehiscence with drainage of surgical incision overnight. Having some pain. Discussed case with surgery, planning to return to the OR today for evaluation of wound and placement of wound VAC. Continues to require inpatient management. Problems addressed as follows: Postop ileus Transaminitis with Wound dehiscence, worsening ?07/15 spoke with general surgery, will repeat CT abdomen/pelvis with p.o. and IV contrast looking for possible high output fistula. ?07/14 patient still has NG in place. Wound VAC draining well today. Continue current management. ?07/13 NG tube drainage. Tolerating liquid diet and ice chips. Wound VAC in place. Continue to advance diet per surgery recommendations. - Initial operation 06/17 for bowel obstruction with removal of part of small bowel and end-to-end anastomosis. Repeat surgery 07/05 with new anastomosis formed and takedown of numerous adhesions. Gradual improvement in bowel function, has been tolerating full liquids for 48 hours. Developed drainage from incision overnight. Discussed case with surgery, going back for evaluation of incision today with likely placement of wound VAC. - Leave NG in place. - Zofran as needed every 8 hours for nausea -Continuing ketorolac 30 mg as needed every 6 hours for moderate pain. Increase Dilaudid frequency to 0.5 mg as needed every 2 hours given increased severity of pain. Receiving frequently, at least 6 doses in the past 24 hours. -Kidney function normal with BUN 35, creatinine 0.9. Liver function showing bilirubin 0.8, AST 107, ALT 269, alkaline phosphatase 138. Improvement after stopping TPN. Klebsiella and Citrobacter bacteremia Wound dehiscence suspicious for infection -White count increased to 10. Neutrophil predominance. Repeat CBC, CMP, magnesium ordered for the morning. -Continue ertapenem 1 g daily. Anticipate 10 days of antibiotics -Will initiate vancomycin for gram-positive coverage. Close monitoring of kidney function. Chronic conditions CAD s/p stent, Hx of heart attack depression: Resume Prozac, hold Wellbutrin. Holding statin and Plavix. SCD for DVT ppx Full code Full liquid diet, patient discontinued from TPN 07/09. Will restart TPN 2023 given inability to advance diet from liquids. Disposition ?07/14/2024 family and patient requesting transfer to [facility] or [facility] for further surgical evaluation. Currently discussing patient/family request with surgical instrument technician.
[2024-07-15 11:53] LABS: Albumin Level 2.7 g/dl (3.5-5.0); Chloride 102 mmol/L (98-107); Potassium 3.9 mmoL/L (3.5-5.1); Sodium 132 mmol/L (136-145)
[2024-07-15 11:56] LABS: Alanine Aminotransferase 79 U/L (12-78); Albumin/Globulin Ratio 0.9 (1.1-1.8); Alkaline Phosphatase 84 U/L (38-126); Anion Gap 8.9 mEq/L (5-15); Aspartate Amino Transferase 54 U/L (17-59); Bilirubin,Total 0.8 mg/dl (0.2-1.3); Blood Urea Nitrogen 20 mg/dl (9-20); Carbon Dioxide 25 mmol/L (22.0-30.0); Creatinine Clearance Estimated 124 mL/min (50-200); Estimated Glomerular Filt Rate 115 ml/min (>60); GFR (African American) 140 ML/MIN (>60); Globulin 2.9 g/dL (1.3-3.2); Total Protein,Serum 5.6 g/dl (6.3-8.2)
[2024-07-15 11:57] LABS: Calcium 7.5 mg/dl (8.4-10.2); Glucose 93 mg/dl (74-100)
--- NOTE | 2024-07-15 11:57 | DIET.NUTRFU ---
TPN to restart today d/t unable to reinitiate oral diet. He is still NPO since 07/12, will restart same TPN Rx. Pharmacy to dose. Spoke to pharmacy about tapering IVF as TPN starts. NG output only 350ml and 300ml via Abdomen where wound vac is. Also draining greenish drainage at wound site with possible fistula. Plan to transfer out for further workup. Nutritional needs are 1900kcal and 75-85gm protein, he is protein depleted at risk for malnutrition secondary to multiple hospital visits with NPO status. Labs reviewed. TPN is provding 1653kcal (87%), 80gm protein (100%). Will continue to monitor labs and nursing assessment for hydration status. He was noted to have bowel movement on 07/11, he also reports good amount of gas. Will continue to follow
--- NOTE | 2024-07-15 12:46 | HMH.ITSTN ---
INJECTED PO CONTRAST VIA NG TUBE AT 12:40. PT TO BE SCANNED AT 2:40
[2024-07-15] MEDS: FAT EMULSIONS 250 ML 60 ML IV (13:46)
[2024-07-15 13:59] LABS: POC Glucose,Bedside 107 (70-110)
--- NOTE | 2024-07-15 14:31 | PC.NURSE ---
WOUND VAC CONTAINER FULL AND CHANGED AGAIN AT THIS TIME
[2024-07-15] MEDS: IOPAMIDOL-370 (76%);100ML BOTTLE 75 ML IV (14:43)
[2024-07-15] MEDS: SODIUM CHLORIDE 0.9% 10ML SYR (RAD ONLY) 10 ML IV (14:43)
[2024-07-15 16:00] VITALS: BP 122/63; PULSE 62; RESP 16; TEMP 36.9; O2SAT 91
[2024-07-15] MEDS: VANCOMYCIN/WATER FOR INJ (PEG) 1.5 GM/300 ML PIGGYBACK IV (16:25)
--- NOTE | 2024-07-15 16:58 | P.PN_ITS ---
Subjective Narrative: Patient has CT scan with oral contrast which reveals findings of extravasation of contrast extending to the midline anterior abdominal wall incision. It is felt that this may be arising from the anastomosis. There are some associated fluid collection in the left hemiabdomen and mesentery. 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 Exam Data for Last 24 hours Vital signs and Labs for Last 24 Hours: Temp Pulse Resp BP Pulse Ox O2 Del Method O2 Flow Rate 97.9 F 64 15 108/57 L 94 L Room Air 2.5 07/15/24 08:00 07/15/24 08:00 07/15/24 10:29 07/15/24 08:00 07/15/24 08:00 07/15/24 16:00 07/09/24 08:00 FiO2 2 07/06/24 14:00 Laboratory Results - last 24 hr 07/14/24 20:30: Vancomycin Peak 20.0 07/15/24 06:25: WBC 10.0 D, RBC 2.97 L, Hgb 9.0 L, Hct 28.7 L, MCV 96.7 H, MCH 30.3, MCHC 31.3 L, RDW 13.7, Plt Count 492 H, MPV 8.9, Neut % (Auto) 86.2 H, Lymph % (Auto) 9.2 L, [place] % (Auto) 4.4, Eos % (Auto) 0.1, Baso % (Auto) 0.1, Neut # (Auto) 8.6 H, Lymph # (Auto) 0.9, [place] # (Auto) 0.4, Eos # (Auto) 0.0, Baso # (Auto) 0.0, Total Counted 100, Neutrophils % (Manual) 86 H, Lymphocytes % (Manual) 12, Monocytes % (Manual) 2, Platelet Estimate Slight increase, Hypochromasia 1+ 07/15/24 11:35: Sodium 132 L, Potassium 3.9, Chloride 102, Carbon Dioxide 25, Anion Gap 8.9, BUN 20 D, Creatinine 0.70 D, Estimated Creat Clear 124, Estim ated GFR 115, Est GFR ( Amer) 140 D, Glucose 93, Calcium 7.5 L, Total Bilirubin 0.8, AST 54 D, ALT 79 H D, Alkaline Phosphatase 84, Total Protein 5.6 L, Albumin 2.7 L, Globulin 2.9, Albumin/Globulin Ratio 0.9 L 07/15/24 13:51: POC Glucose 107 I & O for Last 24 hours: Intake & Output 07/13/24 07/14/24 07/15/24 07/16/24 11:59 11:59 11:59 11:59 Intake Total 1600 / 1600 1690 / 1690 Output Total 0 / 0 500 / 500 2965 / 2965 450 / 450 Balance -450 / -450 -500 / -500 -1275 / -1275 -450 / -450 Weight 170 lb 170 lb 169 lb 14.4 oz Microbiology Reports for the Last 24 Hours: Microbiology 07/12/24 Unknown Abdomen Gram Stain - Final 07/12/24 Unknown Abdomen Abscess Culture - Final Staphylococcus epidermidis Progress Note: A&P Assessment and plan (1) Ileus, postoperative: Status: Acute (2) SBO (small bowel obstruction): Status: Acute (3) Bacteremia: Status: Acute (4) Diarrhea: Status: Acute (5) Post-operative pain: Status: Acute (6) Abdominal wound dehiscence: Status: Acute (7) Nausea vomiting and diarrhea: Status: Acute Assessment and Plan Assessment and Plan for All Diagnoses:: 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 Immediate plan will be continue infection control with fluid and electrolyte replacement with wound care for fistula output. Patient has no findings of significant sepsis or peritonitis and therefore would not warrant surgical intervention. Immediate surgical intervention likely would create more issues than alleviate given the hostility of his abdomen. May possibly require drainage of fluid collections with interventional radiology which is not available at this facility. Given the complex nature of his surgical situation arrangements will be made for transfer to tertiary facility appropriately.
--- NOTE | 2024-07-15 18:26 | PC.NURSE ---
PT HAD KENNETH UREÑA THIS SHIFT. HAD HAD WOUND VAC DRESSING CHANGED THIS SHIFT AND HAD VAC CONTAINER CHANGED X2. PAIN MEDS WERE GIVEN PER MAR. TPN STARTED BACK TODAY. PLAN IS TO TX PT TO TERTIARY FACILITY WHEN A BED IS AVAILABLE.
[2024-07-15] MEDS: PIPERACILLIN/TAZO 4.5 GM in 0.9 % SODIUM CHLORIDE 100 ML IV (18:32)
[2024-07-15 19:44] LABS: Cholesterol 109 mg/dl (140-200); Triglycerides 122 mg/dl (30-150)
[2024-07-15 20:00] VITALS: BP 115/52; PULSE 73; RESP 18; TEMP 37.1; O2SAT 93
[2024-07-15 20:20] LABS: POC Glucose,Bedside 131 (70-110)
[2024-07-15] MEDS: MELATONIN 5MG TABLET 10 MG PO (21:02)
[2024-07-15] MEDS: ACETAMINOPHEN 1,000MG/100ML VIAL 1000 MG IV (21:02)
[2024-07-16] MEDS: PIPERACILLIN/TAZO 4.5 GM in 0.9 % SODIUM CHLORIDE 100 ML IV ×5 (00:06→23:36)
[2024-07-16] MEDS: METOCLOPRAMIDE HCL 10MG/2ML VIAL 5 MG IVP ×5 (00:07→23:35)
[2024-07-16] MEDS: 0.9 % SODIUM CHLORIDE 1000ML 1,000 ML 100 ML IV (00:08)
[2024-07-16] MEDS: HYDROMORPHONE 2MG/ML SYRINGE 0.5 MG IV ×7 (02:33→23:58)
--- NOTE | 2024-07-16 03:30 | PC.NURSE ---
patient reported NGT not working properly, this RN noted NGT at 43 and unable to auscultate in stomach. Advanced NGT to 63, replaced nasal secure, and replaced secure/tape/clothespin to gown while leaving pt on suction. KUB ordered and pending read
--- NOTE | 2024-07-16 03:30 | PC.NURSE ---
patient reported NGT not working properly, this RN noted NGT at 43 and unable to auscultate in stomach. Advanced NGT to 63, replaced nasal secure, and replaced secure/tape/clothespin to gown while leaving pt off suction at this time pending confirmation of placement. KUB ordered and pending read. Laura RN, patient's nurse, notified of the above.
--- NOTE | 2024-07-16 03:42 | XR_ITS ---
FINAL REPORT CLINICAL HISTORY: NG placement COMPARISON: 07/15/2024 FINDINGS: SINGLE VIEW ABDOMEN A single view of the abdomen was obtained. The NG tube has been advanced with the tip now at the pylorus. Gas is seen within loops of large and small bowel, in a nonspecific pattern. IMPRESSION: NG tube tip at the pylorus. Nonspecific bowel gas pattern. Reviewed, Interpreted and Dictated by Emanuel Diego MD Transcribed by Sarika Mahajan Authenticated and [facility]
[2024-07-16 04:00] VITALS: BP 105/59; PULSE 56; RESP 18; TEMP 36.8; O2SAT 96; BMI 26.6
[2024-07-16] MEDS: VANCOMYCIN/WATER FOR INJ (PEG) 1.5 GM/300 ML PIGGYBACK IV ×2 (04:38→16:55)
[2024-07-16 04:50] LABS: POC Glucose,Bedside 153 (70-110)
--- NOTE | 2024-07-16 05:00 | PC.NURSE ---
Pt has continued to complain of abdominal pain and discomfort throughout the shift. He also became confused early on talking about the children and starting the car . Found to have low grade temp of 99.6. Call to provider with order for Acetaminophen IV. Pt has since been A/O. He also had an issue with wound vac dressing leaking. Noted tegaderm no longer sealed and drainage leaking around and through open areas. Cleaned skin thoroughly and dried adding more tegaderm to seal. Noted vacuum working with drainage in cannister. See Jarred Toledo's note regarding NG tube. Provider Ya updated on pt status
--- NOTE | 2024-07-16 06:50 | EXP.SURG.PN ---
Subjective Narrative: Patient without any new complaints. No abdominal pain. Passed some gas. Issues with VAC overnight with some loss of seal which was reinforced by nursing. Exam Data for Last 24 hours Vital signs and Labs for Last 24 Hours: Temp Pulse Resp BP Pulse Ox O2 Del Method O2 Flow Rate 98.2 F 56 L 18 105/59 L 96 Room Air 2.5 07/16/24 04:00 07/16/24 04:00 07/16/24 04:00 07/16/24 04:00 07/16/24 04:00 07/16/24 05:00 07/09/24 08:00 FiO2 2 07/06/24 14:00 Laboratory Results - last 24 hr 07/15/24 06:25: Total Counted 100, Neutrophils % (Manual) 86 H, Lymphocytes % (Manual) 12, Monocytes % (Manual) 2, Platelet Estimate Slight increase, Hypochromasia 1+ 07/15/24 11:35: Sodium 132 L, Potassium 3.9, Chloride 102, Carbon Dioxide 25, Anion Gap 8.9, BUN 20 D, Creatinine 0.70 D, Estimated Creat Clear 124, Estimated GFR 115, Est GFR ( Amer) 140 D, Glucose 93, Calcium 7.5 L, Total Bilirubin 0.8, AST 54 D, ALT 79 H D, Alkaline Phosphatase 84, Total Protein 5.6 L, Albumin 2.7 L, Globulin 2.9, Albumin/Globulin Ratio 0.9 L, Triglycerides 122, Cholesterol 109 L 07/15/24 13:51: POC Glucose 107 07/15/24 20:12: POC Glucose 131 H 07/16/24 03:01: POC Glucose 153 H I & O for Last 24 hours: Intake & Output 07/13/24 07/14/24 07/15/24 07/16/24 11:59 11:59 11:59 11:59 Intake Total 1600 / 1600 1690 / 1690 1426 / 1426 Output Total 0 / 0 500 / 500 2965 / 2965 450 / 450 Balance -450 / -450 -500 / -500 -1275 / -1275 976 / 976 Weight 170 lb 170 lb 169 lb 14.4 oz 169 lb 14.388 oz Microbiology Reports for the Last 24 Hours: Microbiology 07/12/24 Unknown Abdomen Gram Stain - Final 07/12/24 Unknown Abdomen Abscess Culture - Final Staphylococcus epidermidis *Routine Abdominal Exam Abdominal: Present soft Progress Note: A&P Assessment and plan (1) Ileus, postoperative: Status: Acute (2) SBO (small bowel obstruction): Status: Acute (3) Bacteremia: Status: Acute (4) Diarrhea: Status: Acute (5) Post-operative pain: Status: Acute (6) Abdominal wound dehiscence: Status: Acute (7) Nausea vomiting and diarrhea: Status: Acute Assessment and Plan Assessment and Plan for All Diagnoses:: I increased the suction on the VAC to 150. Likely needs dressing change again. Awaiting transfer pending bed availability to [facility].
[2024-07-16 08:00] VITALS: BP 102/56; PULSE 59; RESP 16; TEMP 37.1; O2SAT 96
[2024-07-16] MEDS: SIMETHICONE 40MG/0.6ML DROPS; 30ML BOTTLE 2.4 ML PO ×3 (08:15→21:56)
[2024-07-16] MEDS: ENOXAPARIN 40MG/0.4ML SYRINGE 40 MG SQ (08:15)
[2024-07-16] MEDS: FLUOXETINE 20MG CAPSULE 20 MG PO (08:15)
[2024-07-16] MEDS: AA 5 %/CALCIUM/LYTES/DEXT 20 % 1,000 ML 65 ML IV ×2 (08:16→23:36)
[2024-07-16 08:20] VITALS: O2SAT 96
[2024-07-16 08:48] LABS: POC Glucose,Bedside 150 (70-110)
[2024-07-16 10:27] LABS: Basophils % 0.2 % (0.1-2.0); Eosinophils % 0.4 % (0.1-12.0); Hemoglobin 8.6 g/dL (14.1-18.0); Lymphocytes # 0.5 K/mm3 (0.7-4.5); Lymphocytes % 7.3 % (10-50); Mean Corpuscular Hemoglobin 30.2 pg (27.0-31.2); Mean Corpuscular Volume 94.6 fl (80-94); Mean Platelet Volume 8.9 fl (7.4-10.4); Monocytes # 0.4 K/mm3 (0.1-1.0); Monocytes % 4.8 % (1.7-9.3); Neutrophils # 6.5 K/mm3 (1.8-7.8); Neutrophils % 87.3 % (37.0-80.0); Phosphorous 2.9 mg/dl (2.5-4.5); Platelet Count 503 K/mm3 (142-424); Red Blood Count 2.85 M/mm3 (4.60-6.20); Red Cell Distribution Width 13.7 % (11.5-17.5); White Blood Count 7.4 K/mm3 (4.8-10.8)
[2024-07-16 10:32] LABS: MANUAL DIFFERENTIAL MANUAL DIFFERENTIAL (MANUAL DIFF)
[2024-07-16 11:24] LABS: Lymphocytes % 11 % (10-50); Monocytes % 1 % (2-9); Neutrophils % 88 % (42-76); Total Cells Counted 100
[2024-07-16 11:25] LABS: Platelet Estimate Moderate Increase; RBC Morphology Normal
[2024-07-16 12:00] VITALS: BP 107/56; PULSE 61; RESP 16; TEMP 36.7; O2SAT 95
--- NOTE | 2024-07-16 12:05 | PC.NURSE ---
[facility] CALLED TO GET AN UPDATE ON PT. STILL WAITING ON BED.
[2024-07-16] MEDS: HYDROMORPHONE 2MG/ML SYRINGE 1 MG IV (13:28)
[2024-07-16 14:01] LABS: Alanine Aminotransferase 66 U/L (12-78); Albumin Level 2.3 g/dl (3.5-5.0); Albumin/Globulin Ratio 0.8 (1.1-1.8); Alkaline Phosphatase 82 U/L (38-126); Anion Gap 7.4 mEq/L (5-15); Aspartate Amino Transferase 42 U/L (17-59); Bilirubin,Total 0.4 mg/dl (0.2-1.3); Blood Urea Nitrogen 13 mg/dl (9-20); Calcium 7.5 mg/dl (8.4-10.2); Carbon Dioxide 23 mmol/L (22.0-30.0); Chloride 105 mmol/L (98-107); Creatinine Clearance Estimated 173 mL/min (50-200); Estimated Glomerular Filt Rate 170 ml/min (>60); GFR (African American) 206 ML/MIN (>60); Globulin 2.9 g/dL (1.3-3.2); Glucose 155 mg/dl (74-100); Potassium 3.4 mmoL/L (3.5-5.1); Sodium 132 mmol/L (136-145); Total Protein,Serum 5.2 g/dl (6.3-8.2)
--- NOTE | 2024-07-16 14:50 | P.PN_ITS ---
Subjective *Date: 07/16/24 *Time: 15:08 Interval history: Patient doing well today. Still admits to flatus without bowel movement. present during evaluation by Dr. Yeung. Wound VAC working well during a.m. evaluation. Medical Exam Vital signs and Labs for Last 24 Hours: Vital Signs Temp Pulse Resp BP Pulse Ox O2 Del Method 07/16/24 13:00 Room Air 07/16/24 12:00 98.1 F 61 16 107/56 L 95 Room Air 07/16/24 11:10 Room Air 07/16/24 09:15 Room Air 07/16/24 08:20 96 Room Air 07/16/24 08:00 98.8 F 59 L 16 102/56 L 96 07/16/24 06:54 Room Air 07/16/24 05:00 Room Air 07/16/24 04:00 98.2 F 56 L 18 105/59 L 96 Room Air 07/16/24 03:00 Room Air 07/16/24 01:00 Room Air 07/16/24 00:00 Room Air 07/15/24 23:00 Room Air 07/15/24 21:00 Room Air 07/15/24 20:00 93 L Room Air 07/15/24 20:00 98.8 F 73 18 115/52 L 93 L Room Air 07/15/24 19:00 Room Air 07/15/24 17:00 Room Air 07/15/24 16:00 98.4 F 62 16 122/63 91 L 07/15/24 16:00 Room Air 07/15/24 15:00 Room Air Intake and Output 07/15/24 07/16/24 07/16/24 23:59 07:59 15:59 Intake Total 1426 / 4813 3387 / 4813 Output Total 0 / 1350 875 / 875 Balance 0 / -350 1426 / 3938 2512 / 3938 Intake: Intake, Total IV Amount 1426 / 4813 3387 / 4813 0.9 % Sodium Chloride 1000ML , 000 ml @ 100 mls/hr IV .Q10H [facility] Rx#:[id number] Aa 5 %/Calcium/Lytes/Dext 20 % 715 / 4102 3387 / 4102 1,000 ml @ 65 mls/hr IV . [id number] [facility] Rx#:[id number] Piperacillin/Tazo 4.5 gm In 0.9 400 / 400 % Sodium Chloride 100 ml @ 200 mls/hr IV Q6H [facility] Rx#:[id number] Vancomycin/Water For Inj (Peg) 300 / 300 1.5 gm In 300 ml @ 150 mls/hr IV Q12H [facility] Rx#:[id number] Output: Output, Urine Amount 0 / 400 575 / 575 Output, Gastric Drainage Amount 300 / 300 Right Nare 300 / 300 Other: Number of Unmeasured Voids 3 Weight 77.065 kg Patient Weight 07/16/24 23:59 Weight 77.065 kg Laboratory Results - last 24 hr 07/15/24 11:35: Triglycerides 122, Cholesterol 109 L 07/15/24 20:12: POC Glucose 131 H 07/16/24 03:01: POC Glucose 153 H 07/16/24 08:14: POC Glucose 150 H 07/16/24 10:01: WBC 7.4 D, RBC 2.85 L, Hgb 8.6 L, Hct 27.0 L, MCV 94.6 H, MCH 30.2, MCHC 32.0, RDW 13.7, Plt Count 503 H, MPV 8.9, Neut % (Auto) 87.3 H, Lymph % (Auto) 7.3 L, [place] % (Auto) 4.8, Eos % (Auto) 0.4, Baso % (Auto) 0.2, Neut # (Auto) 6.5, Lymph # (Auto) 0.5 L, [place] # (Auto) 0.4, Eos # (Auto) 0.0, Baso # (Auto) 0.0, Total Counted 100, Neutrophils % (Manual) 88 H, Lymphocytes % (Manual) 11, Monocytes % (Manual) 1 L, Platelet Estimate Moderate increase, RBC Morphology Normal, Sodium 132 L, Potassium 3.4 L, Chloride 105, Carbon Dioxide 23, Anion Gap 7.4, BUN 13 D, Creatinine 0.50 L D, Estimated Creat Clear 173, Estimated GFR 170, Est GFR ( Amer) 206 D, Glucose 155 H D, Calcium 7.5 L , Phosphorus 2.9, Magnesium 2.0, Total Bilirubin 0.4, AST 42, ALT 66, Alkaline Phosphatase 82, Total Protein 5.2 L, Albumin 2.3 L D, Globulin 2.9, Albumin/Globulin Ratio 0.8 L I & O for Labs for Last 24 Hours: Intake & Output 07/13/24 07/14/24 07/15/24 07/16/24 23:59 23:59 23:59 23:59 Intake Total 690 / 1190 1000 / 1000 4813 / 4813 Output Total 1325 / 1325 2565 / 2765 1350 / 1350 875 / 875 Balance -1325 / -1325 -1875 / -1575 -350 / -350 3938 / 3938 Weight 77.111 kg 77.111 kg 77.065 kg 77.065 kg Head: Present normocephalic Eyes: Present as per HPI ENT: Present normal exam Comment:: NG tube in place Neck: Present normal inspection and full ROM Respiratory: Present CTA bilaterally and normal respiratory effort Cardiac: Present Reg Rate and Rhythm and Regular Rate GI: Present soft, tenderness and normal bowel sounds Extremities: Present normal inspection, full ROM and normal capillary refill Skin: Present intact and dry Assessment and Plan *Assessment and plan (1) Enterocutaneous fistula: Status: Acute Category: Medical Code(s): K63.2 - Fistula of intestine (2) Diarrhea: Status: Acute Category: Medical Code(s): R19.7 - Diarrhea, unspecified (3) Ileus, postoperative: Status: Acute Category: Medical Code(s): K91.89 - Other postprocedural complications and disorders of digestive system; K56.7 - Ileus, unspecified (4) Unintentional weight loss: Status: Acute Category: Medical Code(s): R63.4 - Abnormal weight loss (5) Post-operative pain: Status: Acute Category: Medical Code(s): G89.18 - Other acute postprocedural pain (6) Abdominal wound dehiscence: Status: Acute Category: Medical Code(s): T81.30XA - Disruption of wound, unspecified, initial encounter Plan 58-year-old male with PMHx of CAD s/p stent, open appendectomy, and recent bowel resection due to small bowel obstruction. Presented to surgery clinic with persistent nausea and vomiting, dehiscence of proximal portion of the surgical wound, and diarrhea. Patient received exploratory laparotomy small bowel resection with lysis of adhesions 06/17/24. Patient then discharged from hospital 06/24/2024. Patient had recurrent symptoms, and Demetrio presented to hospital for evaluation. Patient underwent second small bowel resection with lysis of adhesions procedure by general surgery 07/05/2024. Patient suffered from wound dehiscence, and was taken taken back to operating room for washout procedure 07/12/2024. Of special note, surgery did not have to reenter peritoneal cavity during washout procedure 07/12/2024. Large wound VAC drainage noted 07/13 to 07/15.07/15 CT abdomen/pelvis showed high output cutaneous fistula, with large fluid collection. Patient subsequently awaiting transfer to for surgical evaluation once bed available. High output enterocutaneous fistula: ? 07/[address]/abdomen pelvis done yesterday. Patient currently awaiting transfer to [facility] for management of this issue. Appreciate general surgery's assistance! continue routine perioperative care. Postop ileus Transaminitis with Wound dehiscence, worsening ?07/15 spoke with general surgery, will repeat CT abdomen/pelvis with p.o. and IV contrast looking for possible high output fistula. ?07/14 patient still has NG in place. Wound VAC draining well today. Continue current management. ?07/13 NG tube drainage. Tolerating liquid diet and ice chips. Wound VAC in place. Continue to advance diet per surgery recommendations. - Initial operation 06/17 for bowel obstruction with removal of part of small bowel and end-to-end anastomosis. Repeat surgery 07/05 with new anastomosis formed and takedown of numerous adhesions. Gradual improvement in bowel function, has been tolerating full liquids for 48 hours. Developed drainage from incision overnight. Discussed case with surgery, going back for evaluation of incision today with likely placement of wound VAC. - Leave NG in place. - Zofran as needed every 8 hours for nausea -Continuing as needed pain meds as needed -Kidney function normal with BUN 35, creatinine 0.9. Liver function showing bilirubin 0.8, AST 107, ALT 269, alkaline phosphatase 138. Improvement after stopping TPN. Klebsiella and Citrobacter bacteremia Wound dehiscence suspicious for infection ?07/15 per recommendations from [facility] general surgery department, given high output enterocutaneous fistula IV Zosyn restarted. -ertapenem 1 g daily (07/06-07/13) -vancomycin for gram-positive coverage(07/12 to present). Closely monitoring of kidney function. Chronic conditions CAD s/p stent, Hx of heart attack depression: Resume Prozac, hold Wellbutrin. Holding statin and Plavix. SCD for DVT ppx Full code FEN: Full liquid diet, patient discontinued from TPN 07/09. Will restart TPN 07/15/2024 given inability to advance diet from liquids. Correct electrolytes as needed. Disposition ?07/15 Patient accepted by [facility] for transfer when bed available. Accepting physician Dr. Libertad THORNTON. however, [facility] stated that bed probably would not be available till next 24 to 48 hours.
[2024-07-16 14:54] LABS: POC Glucose,Bedside 149 (70-110)
[2024-07-16] MEDS: FAT EMULSIONS 250 ML 60 ML IV (15:08)
[2024-07-16] MEDS: KCl 10mEq/100ml 100 ML 100 MEQ IV ×4 (15:42→22:01)
[2024-07-16 16:00] VITALS: BP 109/62; PULSE 56; RESP 16; TEMP 36.5; O2SAT 97
--- NOTE | 2024-07-16 16:12 | PC.NURSE ---
PT CARE TAKEN OVER FROM MARIANNE SANDOVAL AROUND 1200. NG TUBE HAVING ADEQUATE OUTPUT, MIDLINE DRESSING INTACT AND PT TOLERABLE TO PAIN PASSED ALONG IN REPORT. WHEN CHECKING ON PT AFTER RECEIVING REPORT, PT MIDLINE DRESSING/WOUND VAC WAS LEAKING LARGE AMOUNTS OF YELLOW LIQUID. WAS AT BEDSIDE WIPING COPIOUS AMOUNTS OF FLUID AWAY FROM THE DRESSING. THIS NURSE CLEANED AREA WITH WATER AND PLACED LARGE TEGADERM UNTIL CRISTIAN FROM PT CAME AT 1300 TO CHANGE VAC. PT WAS PREMEDICATED WITH DILAUDID AT 1230 PRIOR TO CHANGE. PT FAMILY REQUESTED THAT TORDAL BE ADMINISTERED SHORTLY AFTER DRESSING CHANGE, BUT THIS MEDICATION HAD BEEN DISCONTINUED PER MD ORDERS. FAMILY AND PT EDUCATED ON Q2 ORDER OF DILAUDID THAT WAS AVAILABLE AND SCHEDULING OF MED ADMINISTRATION AROUND WOUND CARE. PT AGREEABLE BUT FAMILY VERBALIZED APPREHENSION. WHILE CHANGING WOUND VAC, PT EXPRESSED GREAT PAIN. ORDER OF ADDITIONAL 1MG OF DILAUDID ONE TIME VERBALIZED BY DR STEVENS IN PT ROOM. AFTER RECEIVING, PT SHOWED DECREASED SIGNS OF PAIN AND VERBALIZED RELIEF. BEDDING AND GOWN CHANGED DUE TO COVERAGE OF WOUND LEAKAGE. TPN CURRENTLY RUNNING AT 65 WITH PT LAST RECORDED FSBS 146 AT 1400. FAT EMULSION HUNG PER JAN. FILTER ON TPN PLACED BY THIS NURSE. BAG 1/4 KCL HUNG WITH NS PER JAN. ALL OTHER MEDICATIONS ADMINISTERED PER MAR THIS SHIFT. NG TUBE SITTING AT 63 AT THE NARE WITH ADEQUATE GREEN FLUIDS BEING DRAWN WITH LWS. VSS. LUNG SOUNDS CLEAR, BOWELS HYPOACTIVE. PT STATES THAT HE HAS HAD INTERMITTENT BELCHING AND GAS, BUT NO BM. URINE OUTPUT ADEQUATE. SEE I & O. PT VERBALIZES NO PAIN CURRENTLY. PT RESTING IN BED, CALL LIGHT IN REACH AND BED IN LOW AND LOCKED POSITION. PT HAS NO REQUESTS AT THIS TIME.
--- NOTE | 2024-07-16 18:26 | PC.NURSE ---
PT HAS MULTIPLE IV MEDICATIONS ORDERED PER JAN. SINGLE LUMEN PICC HAS TPN INFUSING AND PT ONLY HAS ONE OTHER IV. POTASSIUM, NS + KCL, ROCEPHIN AND VANC ALL ORDERED IV. PT ASSESSED FOR ANOTHER IV INSERTION, BUT PT DID NOT HAVE PALPABLE VEINS AND DID NOT WANT TO BE POKED AGAIN . POTASSIUM LAST CHECKED WAS 3.4. WILL PASS ALONG THAT SCHEDULED MEDS MAY BE LATE.
[2024-07-16] MEDS: 0.9% NaCl w/40mEq KCL 1,000 ML 75 ML IV (19:41)
[2024-07-16] MEDS: MAGNESIUM SULFATE IN WATER 2 GM/50 ML PIGGYBACK IV (19:45)
[2024-07-16 20:00] VITALS: BP 114/67; PULSE 67; RESP 16; TEMP 36.9; O2SAT 95
[2024-07-16 20:16] LABS: POC Glucose,Bedside 136 (70-110)
[2024-07-16] MEDS: MELATONIN 5MG TABLET 10 MG PO (21:53)
[2024-07-17 02:17] LABS: POC Glucose,Bedside 136 (70-110)
[2024-07-17 04:00] VITALS: BP 112/60; PULSE 60; RESP 16; TEMP 37.1; O2SAT 93; BMI 26.6
[2024-07-17] MEDS: VANCOMYCIN/WATER FOR INJ (PEG) 1.5 GM/300 ML PIGGYBACK IV ×2 (04:25→17:09)
[2024-07-17] MEDS: METOCLOPRAMIDE HCL 10MG/2ML VIAL 5 MG IVP ×4 (04:26→22:30)
[2024-07-17] MEDS: HYDROMORPHONE 2MG/ML SYRINGE 0.5 MG IV ×2 (04:34→07:41)
--- NOTE | 2024-07-17 05:41 | PC.NURSE ---
Addendum entered by Keesha Carney RN 07/17/24 05:50: [facility] called to get an updated status on pt around [place]. no beds available as of yet. communicated to family Original Note: pt cont to have clear brown drainage from ng tube. tube remains stable and 63 cm at nostril. draining well. wound vac working well. serous drainage noted, no drainage noted from wound vac site or incision. pt reports belching but not passing as much flatus. bowel sounds positive, abd soft, right lower quadrant does appear more firm then the other quadrants but assessment has not changed through the night. adequate uop of keya 1 liter. pain reports in mid abdomen, treated per mar with effectiveness of pain relief. tpn infusing @ 65ml/hr at goal rate through right upper arm picc, drsg c/d/i. potassium and magnesium replaced, awaiting am labs. overall good night, pt not rested well, but clustered care to help with rest. pt did become diaphoretic at one point through the night, no other c/o voiced. a.febrile through the night. fsbs stable at 136, will cont with poc
[2024-07-17] MEDS: PIPERACILLIN/TAZO 4.5 GM in 0.9 % SODIUM CHLORIDE 100 ML IV ×4 (06:40→22:30)
[2024-07-17 07:08] LABS: Basophils % 0.3 % (0.1-2.0); Eosinophils # 0.1 K/mm3 (0.0-0.4); Eosinophils % 1.5 % (0.1-12.0); Hematocrit 30.1 % (42.0-52.0); Hemoglobin 9.4 g/dL (14.1-18.0); Lymphocytes # 0.8 K/mm3 (0.7-4.5); Lymphocytes % 11.5 % (10-50); Mean Corpuscular HGB Conc 31.3 g/dL (31.8-35.4); Mean Corpuscular Hemoglobin 29.7 pg (27.0-31.2); Mean Corpuscular Volume 94.8 fl (80-94); Mean Platelet Volume 8.8 fl (7.4-10.4); Monocytes # 0.3 K/mm3 (0.1-1.0); Neutrophils # 5.5 K/mm3 (1.8-7.8); Neutrophils % 81.8 % (37.0-80.0); Platelet Count 532 K/mm3 (142-424); Red Blood Count 3.18 M/mm3 (4.60-6.20); Red Cell Distribution Width 13.7 % (11.5-17.5); White Blood Count 6.7 K/mm3 (4.8-10.8)
[2024-07-17 07:22] LABS: Magnesium 2.1 mg/dl (1.6-2.3)
[2024-07-17 07:23] LABS: Alanine Aminotransferase 51 U/L (12-78); Albumin Level 2.4 g/dl (3.5-5.0); Albumin/Globulin Ratio 0.8 (1.1-1.8); Alkaline Phosphatase 80 U/L (38-126); Anion Gap 6.9 mEq/L (5-15); Aspartate Amino Transferase 32 U/L (17-59); Bilirubin,Total 0.3 mg/dl (0.2-1.3); Blood Urea Nitrogen 11 mg/dl (9-20); Calcium 7.8 mg/dl (8.4-10.2); Carbon Dioxide 26 mmol/L (22.0-30.0); Chloride 105 mmol/L (98-107); Creatinine Clearance Estimated 173 mL/min (50-200); Estimated Glomerular Filt Rate 170 ml/min (>60); GFR (African American) 206 ML/MIN (>60); Glucose 129 mg/dl (74-100); Potassium 3.9 mmoL/L (3.5-5.1); Sodium 134 mmol/L (136-145); Total Protein,Serum 5.4 g/dl (6.3-8.2)
[2024-07-17 07:55] VITALS: BP 116/61; PULSE 55; RESP 18; TEMP 36.4; O2SAT 95
[2024-07-17] MEDS: ENOXAPARIN 40MG/0.4ML SYRINGE 40 MG SQ (08:47)
[2024-07-17] MEDS: SIMETHICONE 40MG/0.6ML DROPS; 30ML BOTTLE 2.4 ML PO ×3 (08:47→20:09)
[2024-07-17] MEDS: FLUOXETINE 20MG CAPSULE 20 MG PO (08:47)
[2024-07-17] MEDS: HYDROMORPHONE 2MG/ML SYRINGE 1 MG IV ×5 (08:48→22:35)
[2024-07-17 09:14] LABS: POC Glucose,Bedside 136 (70-110)
[2024-07-17] MEDS: MAGNESIUM SULFATE IN WATER 2 GM/50 ML PIGGYBACK IV (10:12)
[2024-07-17] MEDS: KCl 10mEq/100ml 100 ML 100 MEQ IV ×2 (11:21→12:24)
[2024-07-17 12:00] VITALS: BP 120/65; PULSE 60; RESP 19; TEMP 36.6; O2SAT 94
--- NOTE | 2024-07-17 12:18 | EXP.SURG.PN ---
Subjective Narrative: Has had a little bit of uncontrolled pain today. His Dilaudid IV dose was increased with improvement. Has passed flatus but no bowel movement. Tolerating NG tube. He is very complementary of his nurse and Dr. Nation. He is a little apprehensive about going to as he does not know what to expect. Afebrile. No acute events overnight. Exam Data for Last 24 hours Vital signs and Labs for Last 24 Hours: Temp Pulse Resp BP Pulse Ox O2 Del Method O2 Flow Rate 97.6 F 55 L 18 116/61 95 Room Air 2.5 07/17/24 07:55 07/17/24 07:55 07/17/24 07:55 07/17/24 07:55 07/17/24 07:55 07/17/24 10:55 07/09/24 08:00 FiO2 2 07/06/24 14:00 Laboratory Results - last 24 hr 07/16/24 10:01: Sodium 132 L, Potassium 3.4 L, Chloride 105, Carbon Dioxide 23, Anion Gap 7.4, BUN 13 D, Creatinine 0.50 L D, Estimated Creat Clear 173, Estimated GFR 170, Est GFR ( Amer) 206 D, Glucose 155 H D, Calcium 7.5 L, Total Bilirubin 0.4, AST 42, ALT 66, Alkaline Phosphatase 82, Total Protein 5.2 L, Albumin 2.3 L D, Globulin 2.9, Albumin/Globulin Ratio 0.8 L 07/16/24 14:46: POC Glucose 149 H 07/16/24 20:02: POC Glucose 136 H 07/17/24 02:10: POC Glucose 136 H 07/17/24 06:20: WBC 6.7, RBC 3.18 L, Hgb 9.4 L, Hct 30.1 L, MCV 94.8 H, MCH 29.7, MCHC 31.3 L, RDW 13.7, Plt Count 532 H, MPV 8.8, Neut % (Auto) 81.8 H, Lymph % (Auto) 11.5, [place] % (Auto) 5.0, Eos % (Auto) 1.5, Baso % (Auto) 0.3, Neut # (Auto) 5.5, Lymph # (Auto) 0.8, [place] # (Auto) 0.3, Eos # (Auto) 0.1, Baso # (Auto) 0.0, Sodium 134 L, Potassium 3.9, Chloride 105, Carbon Dioxide 26, Anion Gap 6.9, BUN 11, Creatinine 0.50 L, Estimated Creat Clear 173, Estimated GFR 170, Est GFR ( Amer) 206, Glucose 129 H, Calcium 7.8 L, Phosphorus 3.0, Magnesium 2.1, Total Bilirubin 0.3, AST 32, ALT 51, Alkaline Phosphatase 80, Total Protein 5.4 L, Albumin 2.4 L, Globulin 3.0, Albumin/Globulin Ratio 0.8 L 07/17/24 08:50: POC Glucose 136 H I & O for Last 24 hours: Intake & Output 07/14/24 07/15/24 07/16/24 07/17/24 23:59 23:59 23:59 23:59 Intake Total 690 / 1190 1000 / 1000 6661 / 6661 1347 / 1347 Output Total 2565 / 2765 1350 / 1350 2175 / 2175 950 / 950 Balance -1875 / -1575 -350 / -350 4486 / 4486 397 / 397 Weight 170 lb 169 lb 14.4 oz 169 lb 14.388 oz 169 lb 14.388 oz Constitutional Constitutional: no acute distress and cooperative *Routine HEENT Exam Head: Present normocephalic and atraumatic Comments: NG tube in place to wall suction *Routine Abdominal Exam Abdominal: Present soft and normoactive bowel sounds; Absent tenderness, distended, rebound or guarding Comments: Wound VAC in place with good suction and enteric green drainage. No appreciable erythema around wound. Progress Note: A&P Assessment and plan (1) Enterocutaneous fistula: Status: Acute Assessment and plan: . He continues to be stable. Continue broad-spectrum antibiotics. The enterocutaneous fistula is well-managed by wound VAC. There was drainage yesterday until the suction was increased to 175 mmHg which has improved the seal. Continue TPN. He is receiving IV Dilaudid for generalized abdominal pain. He is tolerating an oral Prozac. Will try some oxycodone liquid every 4 hours as needed to see if this improves pain control. Depending on the proximity of his fistula, he may or may not have good absorption of the oxycodone. Awaiting transfer to . My last update was there may be a bed available in the next 24 to 48 hours. (2) Diarrhea: Status: Acute (3) Ileus, postoperative: Status: Acute (4) Unintentional weight loss: Status: Acute (5) Post-operative pain: Status: Acute (6) Abdominal wound dehiscence: Status: Acute
[2024-07-17] MEDS: [UNRECOGNIZED DRUG - REMARK] 65 ML IV (14:21)
[2024-07-17] MEDS: FAT EMULSIONS 250 ML 60 ML IV (14:21)
[2024-07-17 14:42] LABS: POC Glucose,Bedside 131 (70-110)
--- NOTE | 2024-07-17 15:28 | EXP.PN ---
Subjective *Date: 07/17/24 *Time: 15:28 Interval history: seen at bedside, denied Chest pain, SOB, N/V Exam Data for Last 24 hours Vital signs and Labs for Last 24 Hours: Temp Pulse Resp BP Pulse Ox O2 Del Method O2 Flow Rate 97.8 F 60 19 120/65 94 L Room Air 2.5 07/17/24 12:00 07/17/24 12:00 07/17/24 12:00 07/17/24 12:00 07/17/24 12:00 07/17/24 14:41 07/09/24 08:00 FiO2 2 07/06/24 14:00 Laboratory Results - last 24 hr 07/16/24 20:02: POC Glucose 136 H 07/17/24 02:10: POC Glucose 136 H 07/17/24 06:20: WBC 6.7, RBC 3.18 L, Hgb 9.4 L, Hct 30.1 L, MCV 94.8 H, MCH 29.7, MCHC 31.3 L, RDW 13.7, Plt Count 532 H, MPV 8.8, Neut % (Auto) 81.8 H, Lymph % (Auto) 11.5, [place] % (Auto) 5.0, Eos % (Auto) 1.5, Baso % (Auto) 0.3, Neut # (Auto) 5.5, Lymph # (Auto) 0.8, [place] # (Auto) 0.3, Eos # (Auto) 0.1, Baso # (Auto) 0.0, Sodium 134 L, Potassium 3.9, Chloride 105, Carbon Dioxide 26, Anion Gap 6.9, BUN 11, Creatinine 0.50 L, Estimated Creat Clear 173, Estimated GFR 170, Est GFR ( Amer) 206, Glucose 129 H, Calcium 7.8 L, Phosphorus 3.0, Magnesium 2.1, Total Bilirubin 0.3, AST 32, ALT 51, Alkaline Phosphatase 80, Total Protein 5.4 L, Albumin 2.4 L, Globulin 3.0, Albumin/Globulin Ratio 0.8 L 07/17/24 08:50: POC Glucose 136 H 07/17/24 14:23: POC Glucose 131 H I & O for Last 24 hours: Intake & Output 07/14/24 07/15/24 07/16/24 07/17/24 23:59 23:59 23:59 23:59 Intake Total 690 / 1190 1000 / 1000 6661 / 6661 1347 / 1347 Output Total 2565 / 2765 1350 / 1350 2175 / 2175 950 / 950 Balance -1875 / -1575 -350 / -350 4486 / 4486 397 / 397 Weight 77.111 kg 77.065 kg 77.065 kg 77.065 kg Constitutional Constitutional: no acute distress Comments: he has NG tube *Routine HEENT Exam Head: Present normocephalic Eye: Present EOMI and PERRL ENT: Present mucous membranes moist *Routine Neck Exam Neck: Present supple; Absent lymphadenopathy *Routine Respiratory Exam Respiratory: Present CTA bilaterally *Routine Cardiovascular Exam Cardiovascular: Present RRR *Routine Abdominal Exam Abdominal: Present soft and normoactive bowel sounds; Absent tenderness *Routine Extremities Exam Extremities: Absent cyanosis, clubbing or edema *Routine Skin Exam Skin: Present warm; Absent rash *Routine Neurological Exam Neurological: Present alert and oriented X3 Assessment and Plan *Assessment and plan (1) Enterocutaneous fistula: Status: Acute Category: Medical Code(s): K63.2 - Fistula of intestine (2) Diarrhea: Status: Acute Category: Medical Code(s): R19.7 - Diarrhea, unspecified (3) Ileus, postoperative: Status: Acute Category: Medical Code(s): K91.89 - Other postprocedural complications and disorders of digestive system; K56.7 - Ileus, unspecified (4) Unintentional weight loss: Status: Acute Category: Medical Code(s): R63.4 - Abnormal weight loss (5) Post-operative pain: Status: Acute Category: Medical Code(s): G89.18 - Other acute postprocedural pain (6) Abdominal wound dehiscence: Status: Acute Category: Medical Code(s): T81.30XA - Disruption of wound, unspecified, initial encounter Plan 58-year-old male with PMHx of CAD s/p stent, open appendectomy, and recent bowel resection due to small bowel obstruction. Presented to surgery clinic with persistent nausea and vomiting, dehiscence of proximal portion of the surgical wound, and diarrhea. Patient received exploratory laparotomy small bowel resection with lysis of adhesions 06/17/24. Patient then discharged from hospital 06/24/2024. Patient had recurrent symptoms, and Demetrio presented to hospital for evaluation. Patient underwent second small bowel resection with lysis of adhesions procedure by general surgery 07/05/2024. Patient suffered from wound dehiscence, and was taken taken back to operating room for washout procedure 07/12/2024. Of special note, surgery did not have to reenter peritoneal cavity during washout procedure 07/12/2024. Large wound VAC drainage noted 07/13 to 07/15.07/15 CT abdomen/pelvis showed high output cutaneous fistula, with large fluid collection. Patient subsequently awaiting transfer to for surgical evaluation once bed available. High output enterocutaneous fistula: ? 07/[address]/abdomen pelvis done yesterday. Patient currently awaiting transfer to [facility] for management of this issue. Appreciate general surgery's assistance! continue routine perioperative care. Postop ileus Transaminitis with Wound dehiscence, worsening ?07/15 spoke with general surgery, will repeat CT abdomen/pelvis with p.o. and IV contrast looking for possible high output fistula. ?07/14 patient still has NG in place. Wound VAC - Initial operation 06/17 for bowel obstruction with removal of part of small bowel and end-to-end anastomosis. Repeat surgery 07/05 with new anastomosis formed and takedown of numerous adhesions. - Leave NG in place. - Zofran as needed every 8 hours for nausea -Continuing as needed pain meds as needed Klebsiella and Citrobacter bacteremia Wound dehiscence suspicious for infection ?07/15 per recommendations from [facility] general surgery department, given high output enterocutaneous fistula IV Zosyn restarted. -ertapenem 1 g daily (07/06-07/13) -vancomycin for gram-positive coverage(07/12 to present). Closely monitoring of kidney function. Chronic conditions CAD s/p stent, Hx of heart attack depression: Resume Prozac, hold Wellbutrin. Holding statin and Plavix. SCD for DVT ppx Full code FEN: Full liquid diet, patient discontinued from TPN 07/09. restart TPN 07/15/2024 given inability to advance diet from liquids. Correct electrolytes as needed. Disposition continue to monitor kidney function awaiting transfer to , has NG
[2024-07-17 15:38] LABS: Vancomycin,Trough 8.9 ug/mL (5.0-10.0)
--- NOTE | 2024-07-17 15:39 | PC.NURSE ---
pt has c/o abdominal pain throughout shift and has been medicated per MAR. NG remains at 63cm and remains connected to low wall suction. ng drainage has been clear/brown throughout shift. wound vac remains in place. wound vac container switched out earlier in shift d/t it being full. pt still has tpn running at 65ml/hr at goal in PICC line. pt's magnesium and potassium were replaced per mar this shift. pt was placed on heart monitor d/t potassium orders and pt's continuous IV fluids containing potassium. bowel sounds x4 quad have been active. pt stated he has been passing gas, but has not yet had a bowel movement. pt is awaiting transfer to d/t having no beds available. blood sugars have been in mid 130s today. no new orders at this time. call light within reach.
[2024-07-17 16:00] VITALS: BP 128/54; PULSE 60; PULSE 64; RESP 18; TEMP 37.2; O2SAT 96
[2024-07-17] MEDS: OXYCODONE 5MG IMMEDIATE RELEASE TABLET 10 MG PO (17:09)
[2024-07-17 20:00] VITALS: BP 128/61; PULSE 65; PULSE 70; RESP 18; TEMP 37.2; O2SAT 97
[2024-07-17] MEDS: MELATONIN 5MG TABLET 10 MG PO (20:10)
[2024-07-17] MEDS: 0.9% NaCl w/40mEq KCL 1,000 ML 75 ML IV (21:29)
[2024-07-17 21:39] LABS: Vancomycin,Peak 20.3 ug/ml (11-39)
[2024-07-17 21:48] LABS: POC Glucose,Bedside 131 (70-110)
[2024-07-18] VITALS (7 sets, daily range): BP systolic 106–122; BP diastolic 55–72; PULSE 50–72; RESP 16–18; TEMP 36.4–37.1; O2SAT 95–97; BMI 26.8
--- NOTE | 2024-07-18 00:13 | PC.NURSE ---
transfer center called for an update - no bed at this time.
[2024-07-18] MEDS: VANCOMYCIN/WATER FOR INJ (PEG) 1.5 GM/300 ML PIGGYBACK IV (03:55)
[2024-07-18] MEDS: HYDROMORPHONE 2MG/ML SYRINGE 1 MG IV ×8 (03:57→21:21)
[2024-07-18] MEDS: METOCLOPRAMIDE HCL 10MG/2ML VIAL 5 MG IVP ×4 (04:02→22:59)
[2024-07-18] MEDS: PIPERACILLIN/TAZO 4.5 GM in 0.9 % SODIUM CHLORIDE 100 ML IV ×4 (05:31→22:59)
[2024-07-18] MEDS: AA 5 %/CALCIUM/LYTES/DEXT 20 % 1,000 ML 65 ML IV (05:31)
--- NOTE | 2024-07-18 05:44 | PC.NURSE ---
large amounts of yellow drainage leaking from wound vac after reinforcing 2x tonight, plus saturating cailin under pt. - dsg changed and canister replaced.
[2024-07-18 06:15] LABS: Albumin Level 2.5 g/dl (3.5-5.0); Chloride 107 mmol/L (98-107); Potassium 5.1 mmoL/L (3.5-5.1); Sodium 134 mmol/L (136-145)
[2024-07-18 06:18] LABS: Alanine Aminotransferase 47 U/L (12-78); Albumin/Globulin Ratio 0.9 (1.1-1.8); Alkaline Phosphatase 75 U/L (38-126); Anion Gap 6.1 mEq/L (5-15); Aspartate Amino Transferase 33 U/L (17-59); Bilirubin,Total 0.4 mg/dl (0.2-1.3); Blood Urea Nitrogen 10 mg/dl (9-20); Calcium 6.6 mg/dl (8.4-10.2); Carbon Dioxide 26 mmol/L (22.0-30.0); Creatinine Clearance Estimated 174 mL/min (50-200); Estimated Glomerular Filt Rate 170 ml/min (>60); GFR (African American) 206 ML/MIN (>60); Globulin 2.8 g/dL (1.3-3.2); Glucose 122 mg/dl (74-100); Total Protein,Serum 5.3 g/dl (6.3-8.2)
[2024-07-18 06:19] LABS: Magnesium 2.3 mg/dl (1.6-2.3); Phosphorous 3.5 mg/dl (2.5-4.5)
[2024-07-18 06:22] LABS: Basophils % 0.5 % (0.1-2.0); Eosinophils # 0.1 K/mm3 (0.0-0.4); Eosinophils % 1.8 % (0.1-12.0); Hematocrit 28.1 % (42.0-52.0); Hemoglobin 8.8 g/dL (14.1-18.0); Lymphocytes % 13.8 % (10-50); Mean Corpuscular HGB Conc 31.5 g/dL (31.8-35.4); Mean Corpuscular Hemoglobin 29.6 pg (27.0-31.2); Mean Corpuscular Volume 93.9 fl (80-94); Mean Platelet Volume 8.5 fl (7.4-10.4); Monocytes # 0.4 K/mm3 (0.1-1.0); Monocytes % 5.6 % (1.7-9.3); Neutrophils # 5.6 K/mm3 (1.8-7.8); Neutrophils % 78.2 % (37.0-80.0); Platelet Count 539 K/mm3 (142-424); Red Blood Count 2.99 M/mm3 (4.60-6.20); Red Cell Distribution Width 14.1 % (11.5-17.5); White Blood Count 7.2 K/mm3 (4.8-10.8)
[2024-07-18] MEDS: FLUOXETINE 20MG CAPSULE 20 MG PO (08:49)
[2024-07-18] MEDS: SIMETHICONE 40MG/0.6ML DROPS; 30ML BOTTLE 2.4 ML PO ×3 (08:49→20:41)
[2024-07-18] MEDS: ENOXAPARIN 40MG/0.4ML SYRINGE 40 MG SQ (08:49)
--- NOTE | 2024-07-18 09:20 | EXP.PHA.CONS ---
Pharmacy Consult Date: 07/18/24 Time: 09:20 Referring provider: DAHIANA Reason for Consult:: VANCOMYCIN THERAPY MANAGEMENT Allergies Allergy/AdvReac Type Severity Reaction Status Date / Time morphine AdvReac Vomiting Verified 07/09/24 19:16 Home Medications ?Medication ?Instructions ?Recorded ?Confirmed ?Type atorvastatin 40 mg tablet 40 mg PO HS #90 tabs 01/07/24 06/29/24 Rx bupropion HCl 150 mg tablet,12 hr 150 mg PO BID #180 ea 01/07/24 06/29/24 Rx sustained-release (Wellbutrin SR) clopidogrel 75 mg tablet 75 mg PO DAILY #90 tabs 01/07/24 06/29/24 Rx fluoxetine 20 mg capsule 20 mg PO DAILY 06/17/24 06/29/24 History acetaminophen 325 mg tablet 650 mg (2 x 325 mg) PO Q6HP PRN 06/24/24 06/29/24 Rx Fever Or Mild Pain (1-3) #0 tabs ondansetron 4 mg disintegrating 4 mg PO Q6HP PRN nausea and 06/29/24 06/29/24 History tablet vomiting oxycodone-acetaminophen 5 mg-325 1 tab PO Q6HP PRN Moderate Pain 06/29/24 06/29/24 History mg tablet (Percocet) (Scale Score 5-6) promethazine 25 mg tablet 25 mg PO Q6HP PRN nausea and 06/29/24 06/29/24 History vomiting sildenafil 100 mg tablet (Viagra) 100 mg PO NEEDED PRN sexual 06/29/24 06/29/24 History activity New Prescriptions to Start Prescriptions: Height: 1.7 m Weight: 77.519 kg Laboratory Results:: Laboratory Results - last 24 hr 07/17/24 14:23: POC Glucose 131 H 07/17/24 14:55: Vancomycin Trough 8.9 07/17/24 20:40: Vancomycin Peak 20.3 07/17/24 21:33: POC Glucose 131 H 07/18/24 06:00: WBC 7.2, RBC 2.99 L, Hgb 8.8 L, Hct 28.1 L, MCV 93.9, MCH 29.6, MCHC 31.5 L, RDW 14.1, Plt Count 539 H, MPV 8.5, Neut % (Auto) 78.2, Lymph % (Auto) 13.8, [place] % (Auto) 5.6, Eos % (Auto) 1.8, Baso % (Auto) 0.5, Neut # (Auto) 5.6, Lymph # (Auto) 1.0, [place] # (Auto) 0.4, Eos # (Auto) 0.1, Baso # (Auto) 0.0, Sodium 134 L, Potassium 5.1 D, Chloride 107, Carbon Dioxide 26, Anion Gap 6.1, BUN 10, Creatinine 0.50 L, Estimated Creat Clear 174, Estimated GFR 170, Est GFR ( Amer) 206, Glucose 122 H, Calcium 6.6 L, Phosphorus 3.5, Magnesium 2.3, Total Bilirubin 0.4, AST 33, ALT 47, Alkaline Phosphatase 75, Total Protein 5.3 L, Albumin 2.5 L, Globulin 2.8, Albumin/Globulin Ratio 0.9 L Medical History: Medical History (Updated 07/16/24 @ 15:10 by Timur Yeung MD) Bowel obstruction History of heart attack Heart attack Depression Erosive osteoarthritis of multiple sites Assessment and Plan Assessment and plan all Dx Assessment and Plan for all problems:: LEVELS DRAWN IN THE EVENING ON 07/17/24 = 8.9 AND 20.3. WILL CHANGE DOSE TO 1750MG TO ACHIEVE HIGHER PEAK AND WILL CHANGE DOSING INTERVAL TO EVERY 8 HOURS TO ACHIEVE HIGHER TROUGH. WILL FOLLOW DAILY LONG PATIENT CONTINUES ON VANCOMYCIN
[2024-07-18] MEDS: 0.9 % SODIUM CHLORIDE 1000ML 1,000 ML 75 ML IV (09:48)
[2024-07-18] MEDS: VANCOMYCIN/WATER FOR INJ (PEG) 1.75 GM/350 ML PIGGYBACK IV ×2 (11:58→19:42)
--- NOTE | 2024-07-18 12:47 | PC.NURSE ---
Tod from [facility] called regarding an update. Caller updated on TPN, wound vac, Ng tube status and placement, and vital signs. still awaiting available bed. Tod requested that the next time the wound vac is changed that there are updated pictures entered into chart.
[2024-07-18] MEDS: FAT EMULSIONS 250 ML 60 ML IV (14:51)
--- NOTE | 2024-07-18 14:52 | P.PN_ITS ---
Subjective Narrative: Continues to have generalized abdominal pain. Trial of po oxy did not help. +Flatus, no BM. This afternoon, his wound VAC had enteric contents trapped under the drape/poor drainage. Continues afebrile. Exam Data for Last 24 hours Vital signs and Labs for Last 24 Hours: Temp Pulse Resp BP Pulse Ox O2 Del Method O2 Flow Rate 97.6 F 60 18 109/55 L 95 Room Air 2.5 07/18/24 12:00 07/18/24 12:00 07/18/24 12:00 07/18/24 12:00 07/18/24 12:00 07/18/24 12:00 07/09/24 08:00 FiO2 2 07/06/24 14:00 Laboratory Results - last 24 hr 07/17/24 14:55: Vancomycin Trough 8.9 07/17/24 20:40: Vancomycin Peak 20.3 07/17/24 21:33: POC Glucose 131 H 07/18/24 06:00: WBC 7.2, RBC 2.99 L, Hgb 8.8 L, Hct 28.1 L, MCV 93.9, MCH 29.6, MCHC 31.5 L, RDW 14.1, Plt Count 539 H, MPV 8.5, Neut % (Auto) 78.2, Lymph % (Auto) 13.8, [place] % (Auto) 5.6, Eos % (Auto) 1.8, Baso % (Auto) 0.5, Neut # (Auto) 5.6, Lymph # (Auto) 1.0, [place] # (Auto) 0.4, Eos # (Auto) 0.1, Baso # (Auto) 0.0, Sodium 134 L, Potassium 5.1 D, Chloride 107, Carbon Dioxide 26, Anion Gap 6.1, BUN 10, Creatinine 0.50 L, Estimated Creat Clear 174, Estimated GFR 170, Est GFR ( Amer) 206, Glucose 122 H, Calcium 6.6 L, Phosphorus 3.5, Magnesium 2.3, Total Bilirubin 0.4, AST 33, ALT 47, Alkaline Phosphatase 75, Total Protein 5.3 L, Albumin 2.5 L, Globulin 2.8, Albumin/Globulin Ratio 0.9 L I & O for Last 24 hours: Intake & Output 07/15/24 07/16/24 07/17/24 07/18/24 23:59 23:59 23:59 23:59 Intake Total 1000 / 1000 6661 / 6661 3125 / 3125 2260 / 2260 Output Total 1350 / 1350 2175 / 2175 3725 / 3725 2024 / 2024 Balance -350 / -350 4486 / 4486 -600 / -600 235 / 235 Weight 169 lb 14.4 oz 169 lb 14.388 oz 169 lb 14.388 oz 170 lb 14.4 oz Constitutional Constitutional: mild distress and cooperative *Routine Abdominal Exam Abdominal: Present soft and normoactive bowel sounds; Absent tenderness, distended or rebound Comments: VAC to lower midline incision to 175 mmHg suction. Yellowish brown enteric contents under the VAC drape and leaking out from under the drape. Dilaudid IV given, then VAC/drape removed. Wound measured 7 cm long x 3 cm wide x 2.5 cm deep. There was thick yellow succus in the wound that was removed with a gauze. Enteric drainage seemed to be coming from the left upper corner of the wound. No white VAC foam was available. Black VAC foam was cut in three pieces then used to tightly pack the wound. A new drape and tulip were placed. The VAC was placed back to suction at 175 cm with a good seal. Progress Note: A&P Assessment and plan (1) Enterocutaneous fistula: Status: Acute Assessment and plan: Continue NGT and wound VAC to control fistula drainage. NGT was backed up and leaking enteric contents from blue port, but was functional again after 60 cc water flush to main port and multiple air flushes of blue port. VAC changed at bedside today due to poorly controlled drainage. Due to thick enteric drainage, may need q48 hour VAC change instead of every 3 days. Picture of wound was taken at request of [facility], who had called his nurse today. Continue broad spectrum abx. VS and labs are stable. Awaiting transfer to . (2) Diarrhea: Status: Acute (3) Ileus, postoperative: Status: Acute (4) Unintentional weight loss: Status: Acute (5) Post-operative pain: Status: Acute (6) Abdominal wound dehiscence: Status: Acute
--- NOTE | 2024-07-18 15:24 | PC.NURSE ---
wound vac was changed at bedside by d/t the seal being broken and drainage leaking. pt was medicated with PRN pain medicine before procedure was completed. Negro suggested to switch wound vac dsg and system change to Q48 hours. pt's NG tube was clogged previously in shift, but flushed w/ 60ml of water and has been functioning properly since. Ng is at 63cm. wound vac dsg in place and functioning at 175. Negro suggested to turn wound vac up by 25 to a total of 200 if the drainage increases significantly in amount. pt has been requiring PRN pain medicine regularly. TPN is set to the goal of 65/hr. no new orders at this time. call light within reach.
--- NOTE | 2024-07-18 15:45 | PC.WOUNDNOTE ---
LENGTH: 6.5CM WIDTH:3CM DEPTH:2.5CM LOWER ABDOMEN
[2024-07-18 16:00] LABS: POC Glucose,Bedside 101 (70-110)
--- NOTE | 2024-07-18 16:13 | EXP.PN ---
Subjective *Date: 07/18/24 *Time: 16:13 Interval history: seen at bedside, he complains of some abdominal discomfort, able to pass flatus, has NG tube. denied Chest pain, SOB, N/V Exam Data for Last 24 hours Vital signs and Labs for Last 24 Hours: Temp Pulse Resp BP Pulse Ox O2 Del Method O2 Flow Rate 98.0 F 63 18 122/66 96 Room Air 2.5 07/18/24 15:54 07/18/24 15:54 07/18/24 15:54 07/18/24 15:54 07/18/24 15:54 07/18/24 15:54 07/09/24 08:00 FiO2 2 07/06/24 14:00 Laboratory Results - last 24 hr 07/17/24 20:40: Vancomycin Peak 20.3 07/17/24 21:33: POC Glucose 131 H 07/18/24 06:00: WBC 7.2, RBC 2.99 L, Hgb 8.8 L, Hct 28.1 L, MCV 93.9, MCH 29.6, MCHC 31.5 L, RDW 14.1, Plt Count 539 H, MPV 8.5, Neut % (Auto) 78.2, Lymph % (Auto) 13.8, [place] % (Auto) 5.6, Eos % (Auto) 1.8, Baso % (Auto) 0.5, Neut # (Auto) 5.6, Lymph # (Auto) 1.0, [place] # (Auto) 0.4, Eos # (Auto) 0.1, Baso # (Auto) 0.0, Sodium 134 L, Potassium 5.1 D, Chloride 107, Carbon Dioxide 26, Anion Gap 6.1, BUN 10, Creatinine 0.50 L, Estimated Creat Clear 174, Estimated GFR 170, Est GFR ( Amer) 206, Glucose 122 H, Calcium 6.6 L, Phosphorus 3.5, Magnesium 2.3, Total Bilirubin 0.4, AST 33, ALT 47, Alkaline Phosphatase 75, Total Protein 5.3 L, Albumin 2.5 L, Globulin 2.8, Albumin/Globulin Ratio 0.9 L 07/18/24 15:49: POC Glucose 101 I & O for Last 24 hours: Intake & Output 07/15/24 07/16/24 07/17/24 07/18/24 23:59 23:59 23:59 23:59 Intake Total 1000 / 1000 6661 / 6661 3125 / 3125 2905 / 2905 Output Total 1350 / 1350 2175 / 2175 3725 / 3725 2024 Balance -350 / -350 4486 / 4486 -600 / -600 880 / 880 Weight 77.065 kg 77.065 kg 77.065 kg 77.519 kg Constitutional Constitutional: no acute distress Comments: he has NG tube *Routine HEENT Exam Head: Present normocephalic Eye: Present EOMI and PERRL ENT: Present mucous membranes moist *Routine Neck Exam Neck: Present supple; Absent lymphadenopathy *Routine Respiratory Exam Respiratory: Present CTA bilaterally *Routine Cardiovascular Exam Cardiovascular: Present RRR *Routine Abdominal Exam Abdominal: Present soft and normoactive bowel sounds; Absent tenderness *Routine Extremities Exam Extremities: Absent cyanosis, clubbing or edema *Routine Skin Exam Skin: Present warm; Absent rash *Routine Neurological Exam Neurological: Present alert and oriented X3 Assessment and Plan *Assessment and plan (1) Enterocutaneous fistula: Status: Acute Category: Medical Code(s): K63.2 - Fistula of intestine (2) Diarrhea: Status: Acute Category: Medical Code(s): R19.7 - Diarrhea, unspecified (3) Ileus, postoperative: Status: Acute Category: Medical Code(s): K91.89 - Other postprocedural complications and disorders of digestive system; K56.7 - Ileus, unspecified (4) Unintentional weight loss: Status: Acute Category: Medical Code(s): R63.4 - Abnormal weight loss (5) Post-operative pain: Status: Acute Category: Medical Code(s): G89.18 - Other acute postprocedural pain (6) Abdominal wound dehiscence: Status: Acute Category: Medical Code(s): T81.30XA - Disruption of wound, unspecified, initial encounter Plan 58-year-old male with PMHx of CAD s/p stent, open appendectomy, and recent bowel resection due to small bowel obstruction. Presented to surgery clinic with persistent nausea and vomiting, dehiscence of proximal portion of the surgical wound, and diarrhea. Patient received exploratory laparotomy small bowel resection with lysis of adhesions 06/17/24. Patient then discharged from hospital 06/24/2024. Patient had recurrent symptoms, and Demetrio presented to hospital for evaluation. Patient underwent second small bowel resection with lysis of adhesions procedure by general surgery 07/05/2024. Patient suffered from wound dehiscence, and was taken taken back to operating room for washout procedure 07/12/2024. Of special note, surgery did not have to reenter peritoneal cavity during washout procedure 07/12/2024. Large wound VAC drainage noted 07/13 to 07/15.07/15 CT abdomen/pelvis showed high output cutaneous fistula, with large fluid collection. Patient subsequently awaiting transfer to for surgical evaluation once bed available. High output enterocutaneous fistula: ? noted on CT/abdomen pelvis, Patient currently awaiting transfer to [facility] for management of this issue. Appreciate general surgery's assistance! continue routine perioperative care wound vac dressing changed today by [facility] Postop ileus Transaminitis with Wound dehiscence, worsening - Leave NG in place. on TPN - Zofran as needed every 8 hours for nausea -Continuing as needed pain meds as needed Klebsiella and Citrobacter bacteremia Wound dehiscence suspicious for infection ?07/15 per recommendations from general surgery department, given high output enterocutaneous fistula IV Zosyn restarted. -ertapenem 1 g daily (07/06-07/13) -vancomycin for gram-positive coverage(07/12 to present). Closely monitoring of kidney function. Chronic conditions CAD s/p stent, Hx of heart attack depression: Resume Prozac, hold Wellbutrin. Holding statin and Plavix. SCD for DVT ppx Full code FEN: Full liquid diet, patient discontinued from TPN 07/09. restart TPN 07/15/2024 given inability to advance diet from liquids. Correct electrolytes as needed. Disposition continue to monitor kidney function awaiting transfer to , has NG, on TPN, wound vac dressing changed today
[2024-07-18] MEDS: [UNRECOGNIZED DRUG - REMARK] 65 ML IV (20:40)
[2024-07-18] MEDS: MELATONIN 5MG TABLET 10 MG PO (20:40)
[2024-07-18 20:44] LABS: POC Glucose,Bedside 121 (70-110)
[2024-07-19] VITALS (7 sets, daily range): BP systolic 111–143; BP diastolic 55–73; PULSE 55–70; RESP 16–18; TEMP 36.4–37.2; O2SAT 95–97; BMI 26.9
--- NOTE | 2024-07-19 00:21 | PC.NURSE ---
[facility] called for update, no bed at this time.
[2024-07-19] MEDS: HYDROMORPHONE 2MG/ML SYRINGE 1 MG IV ×7 (03:33→21:05)
[2024-07-19] MEDS: VANCOMYCIN/WATER FOR INJ (PEG) 1.75 GM/350 ML PIGGYBACK IV ×3 (03:33→20:26)
[2024-07-19] MEDS: 0.9 % SODIUM CHLORIDE 1000ML 1,000 ML 75 ML IV (03:33)
--- NOTE | 2024-07-19 05:22 | PC.NURSE ---
Alert and oriented. Complained of pain throughout the night in the RLQ, treated per jan. Bowel sounds active, abdomen tender to touch. Wound vac in place, set to 175, 300mL of drainage noted this shift, greenish/yellow in color. Dressing to wound vac is clean and not leaking. NG to R nare @65, set to LWS, 850mL emptied this shift of greenish liquid. Antibiotics/NS infused through L arm IV. TPN infused through CARMENZA PICC. FS Q6. Pt has had no other complaints and has rested well throughout the shift. Patient states he has not passed as much gas tonight as he did yesterday. Call light in reach.
[2024-07-19] MEDS: PIPERACILLIN/TAZO 4.5 GM in 0.9 % SODIUM CHLORIDE 100 ML IV ×4 (05:33→23:25)
[2024-07-19] MEDS: METOCLOPRAMIDE HCL 10MG/2ML VIAL 5 MG IVP ×4 (05:33→23:25)
[2024-07-19 07:06] LABS: Basophils # 0.1 K/mm3 (0-0.2); Basophils % 0.9 % (0.1-2.0); Eosinophils # 0.2 K/mm3 (0.0-0.4); Eosinophils % 3.9 % (0.1-12.0); Hematocrit 28.9 % (42.0-52.0); Hemoglobin 9.2 g/dL (14.1-18.0); Lymphocytes # 1.2 K/mm3 (0.7-4.5); Lymphocytes % 19.9 % (10-50); Mean Corpuscular HGB Conc 31.7 g/dL (31.8-35.4); Mean Corpuscular Hemoglobin 30.4 pg (27.0-31.2); Mean Corpuscular Volume 96.1 fl (80-94); Mean Platelet Volume 8.6 fl (7.4-10.4); Monocytes # 0.3 K/mm3 (0.1-1.0); Neutrophils # 4.4 K/mm3 (1.8-7.8); Neutrophils % 70.4 % (37.0-80.0); Platelet Count 546 K/mm3 (142-424); Red Blood Count 3.01 M/mm3 (4.60-6.20); White Blood Count 6.3 K/mm3 (4.8-10.8)
[2024-07-19 07:12] LABS: Albumin Level 2.6 g/dl (3.5-5.0); Chloride 104 mmol/L (98-107)
[2024-07-19 07:13] LABS: Potassium 4.3 mmoL/L (3.5-5.1); Sodium 134 mmol/L (136-145)
[2024-07-19 07:15] LABS: Alanine Aminotransferase 60 U/L (12-78); Albumin/Globulin Ratio 0.9 (1.1-1.8); Alkaline Phosphatase 81 U/L (38-126); Anion Gap 7.3 mEq/L (5-15); Aspartate Amino Transferase 52 U/L (17-59); Bilirubin,Total 0.3 mg/dl (0.2-1.3); Blood Urea Nitrogen 10 mg/dl (9-20); Calcium 7.7 mg/dl (8.4-10.2); Carbon Dioxide 27 mmol/L (22.0-30.0); Creatinine Clearance Estimated 175 mL/min (50-200); Estimated Glomerular Filt Rate 170 ml/min (>60); GFR (African American) 206 ML/MIN (>60); Glucose 130 mg/dl (74-100); Total Protein,Serum 5.6 g/dl (6.3-8.2)
[2024-07-19 07:52] LABS: POC Glucose,Bedside 124 (70-110)
[2024-07-19] MEDS: SIMETHICONE 40MG/0.6ML DROPS; 30ML BOTTLE 2.4 ML PO ×3 (08:40→20:26)
[2024-07-19] MEDS: ENOXAPARIN 40MG/0.4ML SYRINGE 40 MG SQ (08:40)
[2024-07-19] MEDS: FLUOXETINE 20MG CAPSULE 20 MG PO (08:40)
[2024-07-19 10:01] LABS: Phosphorous 4.1 mg/dl (2.5-4.5)
--- NOTE | 2024-07-19 10:12 | P.PN_ITS ---
Subjective *Date: 07/19/24 *Time: 10:16 Interval history: Patient is in good spirits at time evaluation by Dr. Yeung today. Patient still awaiting transfer to . Wound VAC functional. Patient tolerating TPN. Patient states he feels stronger after last week after reinitiation of TPN th erapy last week. Medical Exam Vital signs and Labs for Last 24 Hours: Vital Signs Temp Pulse Pulse Resp BP Pulse Ox O2 Del Method 07/19/24 08:00 97.6 F 60 18 143/73 H 97 Room Air 07/19/24 07:00 Room Air 07/19/24 05:00 Room Air 07/19/24 04:00 97.7 F 62 16 129/68 95 Room Air 07/19/24 04:00 70 07/19/24 03:00 Room Air 07/19/24 01:00 Room Air 07/19/24 01:00 60 07/19/24 00:00 60 07/19/24 00:00 98.6 F 66 16 123/64 95 Room Air 07/18/24 23:00 Room Air 07/18/24 21:00 Room Air 07/18/24 20:00 Room Air 07/18/24 20:00 98.8 F 72 16 114/72 96 Room Air 07/18/24 19:00 Room Air 07/18/24 17:00 Room Air 07/18/24 16:00 60 07/18/24 15:54 98.0 F 63 18 122/66 96 Room Air 07/18/24 15:00 Room Air 07/18/24 13:00 Room Air 07/18/24 12:00 60 07/18/24 12:00 97.6 F 60 18 109/55 L 95 Room Air 07/18/24 11:00 Room Air Intake and Output 07/18/24 07/19/24 07/19/24 23:59 07:59 15:59 Intake Total 3448 / 3448 0 / 3448 Output Total 450 / 2475 2400 / 2900 500 / 2900 Balance -450 / 430 1048 / 548 -500 / 548 Intake: Intake, Oral Amount 0 / 0 Intake, Total IV Amount 3448 / 3448 0.9 % Sodium Chloride 1000ML 1, 1166 / 1166 000 ml @ 75 mls/hr IV .[id number] [facility] Rx#:[id number] Mvi, Adult No.1 with Vit K 10 1382 / 1382 ml Zinc/Copper/Megan/Chromic Chl 1 ml In Aa 5 %/Calcium/ Lytes/Dext 20 % 1,000 ml @ 65 mls/hr IV .[id number] ONE Rx#: [id number] Piperacillin/Tazo 4.5 gm In 0.9 200 / 200 % Sodium Chloride 100 ml @ 200 mls/hr IV Q6H [facility] Rx#:[id number] Vancomycin/Water For Inj (Peg) 700 / 700 1.75 gm In 350 ml @ 175 mls/hr IV Q8H [facility] Rx#:[id number] Output: Output, Urine Amount 450 / 2325 1250 / 1750 500 / 1750 Output, Gastric Drainage Amount 850 / 850 Right Nare 850 / 850 Output, Drainage Amount 300 / 300 Medial Abdomen 300 / 300 Other: Weight 77.836 kg Patient Weight 07/19/24 23:59 Weight 77.836 kg Laboratory Results - last 24 hr 07/18/24 15:49: POC Glucose 101 07/18/24 20:36: POC Glucose 121 H 07/19/24 06:40: WBC 6.3, RBC 3.01 L, Hgb 9.2 L, Hct 28.9 L, MCV 96.1 H, MCH 30.4, MCHC 31.7 L, RDW 14.0, Plt Count 546 H, MPV 8.6, Neut % (Auto) 70.4, Lymph % (Auto) 19.9, [place] % (Auto) 5.0, Eos % (Auto) 3.9, Baso % (Auto) 0.9, Neut # (Auto) 4.4, Lymph # (Auto) 1.2, [place] # (Auto) 0.3, Eos # (Auto) 0.2, Baso # (Auto) 0.1, Sodium 134 L, Potassium 4.3, Chloride 104, Carbon Dioxide 27, Anion Gap 7.3, BUN 10, Creatinine 0.50 L, Estimated Creat Clear 175, Estimated GFR 170, Est GFR ( Amer) 206, Glucose 130 H, Calcium 7.7 L, Phosphorus 4.1, Magnesium 2.0 D, Total Bilirubin 0.3, AST 52 D, ALT 60 D, Alkaline Phosphatase 81, Total Protein 5.6 L, Albumin 2.6 L, Globulin 3.0, Albumin/Globulin Ratio 0.9 L 07/19/24 07:44: POC Glucose 124 H I & O for Labs for Last 24 Hours: Intake & Output 07/16/24 07/17/24 07/18/24 07/19/24 23:59 23:59 23:59 23:59 Intake Total 6661 / 6661 3125 / 3125 2905 / 2905 3448 / 3448 Output Total 2175 / 2175 3725 / 3725 2475 / 2475 2900 / 2900 Balance 4486 / 4486 -600 / -600 430 / 430 548 / 548 Weight 77.065 kg 77.065 kg 77.519 kg 77.836 kg Head: Present normocephalic and normal inspection ENT: Present normal exam and normal oropharynx Neck: Present normal inspection and full ROM Respiratory: Present CTA bilaterally and normal respiratory effort Cardiac: Present Reg Rate and Rhythm GI: Present soft and normal bowel sounds Rectal (male): Present deferred (male): Present deferred Extremities: Present normal inspection and full ROM Skin: Present intact and dry Assessment and Plan *Assessment and plan (1) Enterocutaneous fistula: Status: Acute Category: Medical Code(s): K63.2 - Fistula of intestine (2) Ileus, postoperative: Status: Acute Category: Medical Code(s): K91.89 - Other postprocedural complications and disorders of digestive system; K56.7 - Ileus, unspecified (3) Unintentional weight loss: Status: Acute Category: Medical Code(s): R63.4 - Abnormal weight loss (4) Abdominal wound dehiscence: Status: Acute Category: Medical Code(s): T81.30XA - Disruption of wound, unspecified, initial encounter (5) Abdominal wound dehiscence: Status: Acute Qualifiers: Encounter type: initial encounter Qualified Code(s): T81.30XA - Disruption of wound, unspecified, initial encounter Category: Medical Code(s): T81.30XA - Disruption of wound, unspecified, initial encounter (6) Nausea vomiting and diarrhea: Status: Acute Category: Medical Code(s): R11.2 - Nausea with vomiting, unspecified; R19.7 - Diarrhea, unspecified Plan 58-year-old male with PMHx of CAD s/p stent, open appendectomy, and recent bowel resection due to small bowel obstruction. Presented to surgery clinic with persistent nausea and vomiting, dehiscence of proximal portion of the surgical wound, and diarrhea. Patient received exploratory laparotomy small bowel resection with lysis of adhesions 06/17/24. Patient then discharged from hospital 06/24/2024. Patient had recurrent symptoms, and Demetrio presented to hospital for evaluation. Patient underwent second small bowel resection with lysis of adhesions procedure by general surgery 07/05/2024. Patient suffered from wound dehiscence, and was taken taken back to operating room for washout procedure 07/12/2024. Of special note, surgery did not have to reenter peritoneal cavity during washout procedure 07/12/2024. Large wound VAC drainage noted 07/13 to 07/15.07/15 CT abdomen/pelvis showed high output cutaneous fistula, with large fluid collection. Patient subsequently awaiting transfer to for surgical evaluation once bed available. High output enterocutaneous fistula: ?07/19 nursing check last night about [facility] bed arrangements. Patient as of last night is apparently 50 on the list for transfer to . Will continue to check daily on [facility] bed transfer arrangements. ? noted on CT/abdomen pelvis, Patient currently awaiting transfer to [facility] for management of this issue. Appreciate general surgery's assistance! continue routine perioperative care wound vac dressing changed today by [facility] Postop ileus Transaminitis with Wound dehiscence, worsening - Leave NG in place. on TPN - Zofran as needed every 8 hours for nausea -Continuing as needed pain meds as needed Klebsiella and Citrobacter bacteremia Wound dehiscence suspicious for infection ?07/15 per recommendations from general surgery department, given high output enterocutaneous fistula IV Zosyn restarted. -ertapenem 1 g daily (07/06-07/13) -vancomycin for gram-positive coverage(07/12 to present). Closely monitoring of kidney function. Chronic conditions CAD s/p stent, Hx of heart attack depression: Resume Prozac, hold Wellbutrin. Holding statin and Plavix. SCD for DVT ppx Full code FEN: Full liquid diet, patient discontinued from TPN 07/09. restart TPN 07/15/2024 given inability to advance diet from liquids. Correct electrolytes as needed. Disposition continue to monitor kidney function awaiting transfer to , has NG, on TPN, wound vac dressing changed daily. ?07/19 nursing check last night about [facility] bed arrangements. Patient as of last night is apparently 50 on the list for transfer to . Will continue to check daily on [facility] bed transfer arrangements.
[2024-07-19] MEDS: MAGNESIUM SULFATE IN WATER 2 GM/50 ML PIGGYBACK IV (10:41)
--- NOTE | 2024-07-19 11:44 | P.PN_ITS ---
Subjective Narrative: Patient without any new complaints. Abdominal pain is controlled and improving. Has not passed gas today. Had negative pressure wound therapy dressing changed yesterday due to lack of seal and leakage. Functioning well at this time. Has had 850 out of NG tube and 300 cc from his abdominal wound. Exam Data for Last 24 hours Vital signs and Labs for Last 24 Hours: Temp Pulse Resp BP Pulse Ox O2 Del Method O2 Flow Rate 97.6 F 60 18 143/73 H 97 Room Air 2.5 07/19/24 08:00 07/19/24 08:00 07/19/24 08:00 07/19/24 08:00 07/19/24 08:00 07/19/24 08:00 07/09/24 08:00 FiO2 2 07/06/24 14:00 Laboratory Results - last 24 hr 07/18/24 15:49: POC Glucose 101 07/18/24 20:36: POC Glucose 121 H 07/19/24 06:40: WBC 6.3, RBC 3.01 L, Hgb 9.2 L, Hct 28.9 L, MCV 96.1 H, MCH 30.4, MCHC 31.7 L, RDW 14.0, Plt Count 546 H, MPV 8.6, Neut % (Auto) 70.4, Lymph % (Auto) 19.9, [place] % (Auto) 5.0, Eos % (Auto) 3.9, Baso % (Auto) 0.9, Neut # (Auto) 4.4, Lymph # (Auto) 1.2, [place] # (Auto) 0.3, Eos # (Auto) 0.2, Baso # (Auto) 0.1, Sodium 134 L, Potassium 4.3, Chloride 104, Carbon Dioxide 27, Anion Gap 7.3, BUN 10, Creatinine 0.50 L, Estimated Creat Clear 175, Estimated GFR 170, Est GFR ( Amer) 206, Glucose 130 H, Calcium 7.7 L, Phosphorus 4.1, Magnesium 2.0 D, Total Bilirubin 0.3, AST 52 D, ALT 60 D, Alkaline Phosphatase 81, Total Protein 5.6 L, Albumin 2.6 L, Globulin 3.0, Albumin/Globulin Ratio 0.9 L 07/19/24 07:44: POC Glucose 124 H I & O for Last 24 hours: Intake & Output 07/16/24 07/17/24 07/18/24 07/19/24 11:59 11:59 11:59 11:59 Intake Total 4813 / 4813 3195 / 3195 4038 / 4038 4093 / 4093 Output Total 1050 / 1325 2525 / 2525 4800 / 4800 3350 / 3350 Balance 3763 / 3488 670 / 670 -762 / -762 743 / 743 Weight 169 lb 14.388 oz 169 lb 14.388 oz 170 lb 14.4 oz 171 lb 9.6 oz *Routine Abdominal Exam Abdominal: Present soft Comments: Wound VAC dressing functioning well. Progress Note: A&P Assessment and plan (1) Enterocutaneous fistula: Status: Acute (2) Ileus, postoperative: Status: Acute (3) Unintentional weight loss: Status: Acute (4) Abdominal wound dehiscence: Status: Acute (5) Nausea vomiting and diarrhea: Status: Acute Assessment and Plan Assessment and Plan for All Diagnoses:: Awaiting bed at [facility].
--- NOTE | 2024-07-19 12:02 | DIET.NUTRFU ---
reviewed labs and TPN with pharmacy and IDT team. His recent output is 07/17- NG output 1375ml, none noted on 07/18, today is 850ml already. Urine output 2100ml on 07/17, 2325ml on 07/18 and 1750ml today so far. He is also having output from wound 250ml 07/17, 150ml 07/17 and 300ml today. He continues to receive TPN and IV bolus to meet hydration/nutrition needs. Labs: Na 134L, K 4.3, BUN 10, Cr 0.5L and glucose 130H, albumin 2.6L. TPN is providing 1653kcal (87%), 80gm protein (100%). Weight fluctuating secondary to fluid status as low as 74kg and as high as 84kg. Will continue to monitor
[2024-07-19] MEDS: AA 5 %/CALCIUM/LYTES/DEXT 20 % 1,000 ML 65 ML IV (13:04)
[2024-07-19] MEDS: OXYCODONE 5MG IMMEDIATE RELEASE TABLET 10 MG PO (13:11)
[2024-07-19] MEDS: FAT EMULSIONS 250 ML 60 ML IV (14:30)
[2024-07-19 15:26] LABS: POC Glucose,Bedside 121 (70-110)
--- NOTE | 2024-07-19 15:36 | PC.NURSE ---
Pt a&ox4 and vss. Patient toleratient tpn and lipids. Patient still requiring pain medication\s PRN but pain is better controlled than it has been. Patient still waiting for transfer to . called and said he was the [facility] patient waiting for transfer at this time. awaiting call
[2024-07-19] MEDS: MELATONIN 5MG TABLET 10 MG PO (20:26)
[2024-07-19 22:04] LABS: POC Glucose,Bedside 131 (70-110)
[2024-07-20] VITALS (7 sets, daily range): BP systolic 118–127; BP diastolic 59–67; PULSE 57–76; RESP 16–20; TEMP 36.6–37.1; O2SAT 95–97; BMI 26.8
--- NOTE | 2024-07-20 01:10 | PC.NURSE ---
Jarad from [facility] called at this time for an update about the patient. She informed me to update [facility] if any acute changes were to be noted in the patient's status, and that they are still waiting for a room to become available to allow the patient to be transferred.
[2024-07-20] MEDS: 0.9 % SODIUM CHLORIDE 1000ML 1,000 ML 75 ML IV (01:50)
[2024-07-20] MEDS: HYDROMORPHONE 2MG/ML SYRINGE 1 MG IV ×8 (01:55→20:40)
[2024-07-20 02:16] LABS: POC Glucose,Bedside 131 (70-110)
[2024-07-20] MEDS: AA 5 %/CALCIUM/LYTES/DEXT 20 % 1,000 ML 65 ML IV (04:30)
[2024-07-20] MEDS: PIPERACILLIN/TAZO 4.5 GM in 0.9 % SODIUM CHLORIDE 100 ML IV (04:30)
[2024-07-20] MEDS: METOCLOPRAMIDE HCL 10MG/2ML VIAL 5 MG IVP ×4 (04:30→22:43)
[2024-07-20] MEDS: VANCOMYCIN/WATER FOR INJ (PEG) 1.75 GM/350 ML PIGGYBACK IV (04:57)
--- NOTE | 2024-07-20 05:59 | PC.NURSE ---
Patient is alert and oriented, but has stated this shift that he has difficulty knowing what time it is and what the time of day is. Patient was also observed to be very fatigued. Patient was noted to have eyes closed, respirations even and unlabored, and no apparent distress throughout the majority of the night; however, patient has been awaken periodically for medication administration, as well as abdominal pain. Patient was treated with Dilautid per JAN; patient has consistently rated his pain level as an 8. Patient's midline incision was observed this shift; redness was noted around the incision, wound vac is in place at 175. Patient's NG tube is patent, hooked to suction, and intact in the right nare; gastric output has been consistently recorded. Gastric output appearance is liquid green. Patient has also been using the urinal this shift; urine output has been recorded consistently as well. Wound vac drainage was monitored as well. Patient's PICC line dressing (to right upper arm) was changed this shift. Patient tolerated dressing change well, only noting mild pain during the removal of the old dressing; PICC line site was free of redness, pain, or drainage. Patient's bowel sounds were active in all quadrants; however, patient stated that he has not had a bowel movement in about 4 weeks. Patient's abdomen has been tender to touch. Lung sounds were clear upon auscultation. Patient has been running normal sinus rhythm on telemetry. Patient has been tolerating room air well. Patient received his scheduled medications per JAN; new TPN bag is currently infusing at 65 mL/hr. Patient has also been getting IV antibiotics and normal saline (@ 75m/hr). FSBS readings for 21:00 and 02:00 were 131. Patient does not have any complaints at this time. He is currently resting supine in bed. Call light within reach. Patient is still waiting for transfer to (see prior note).
[2024-07-20 07:22] LABS: Basophils # 0.1 K/mm3 (0-0.2); Basophils % 1.1 % (0.1-2.0); Eosinophils # 0.2 K/mm3 (0.0-0.4); Eosinophils % 3.3 % (0.1-12.0); Hematocrit 31.2 % (42.0-52.0); Hemoglobin 9.9 g/dL (14.1-18.0); Lymphocytes # 1.3 K/mm3 (0.7-4.5); Lymphocytes % 24.2 % (10-50); Mean Corpuscular HGB Conc 31.7 g/dL (31.8-35.4); Mean Corpuscular Hemoglobin 30.3 pg (27.0-31.2); Mean Corpuscular Volume 95.6 fl (80-94); Mean Platelet Volume 8.6 fl (7.4-10.4); Monocytes # 0.3 K/mm3 (0.1-1.0); Monocytes % 5.4 % (1.7-9.3); Neutrophils # 3.5 K/mm3 (1.8-7.8); Platelet Count 498 K/mm3 (142-424); Red Blood Count 3.26 M/mm3 (4.60-6.20); Red Cell Distribution Width 13.8 % (11.5-17.5); White Blood Count 5.3 K/mm3 (4.8-10.8)
[2024-07-20 07:26] LABS: Albumin Level 2.6 g/dl (3.5-5.0); Chloride 104 mmol/L (98-107); Potassium 4.4 mmoL/L (3.5-5.1); Sodium 135 mmol/L (136-145)
[2024-07-20 07:29] LABS: Alanine Aminotransferase 57 U/L (12-78); Albumin/Globulin Ratio 0.8 (1.1-1.8); Alkaline Phosphatase 86 U/L (38-126); Anion Gap 6.4 mEq/L (5-15); Aspartate Amino Transferase 46 U/L (17-59); Bilirubin,Total 0.4 mg/dl (0.2-1.3); Blood Urea Nitrogen 10 mg/dl (9-20); Calcium 7.7 mg/dl (8.4-10.2); Carbon Dioxide 29 mmol/L (22.0-30.0); Creatinine Clearance Estimated 145 mL/min (50-200); Estimated Glomerular Filt Rate 138 ml/min (>60); GFR (African American) 167 ML/MIN (>60); Globulin 3.1 g/dL (1.3-3.2); Glucose 117 mg/dl (74-100); Total Protein,Serum 5.7 g/dl (6.3-8.2)
[2024-07-20 07:30] LABS: Magnesium 2.1 mg/dl (1.6-2.3); Phosphorous 3.8 mg/dl (2.5-4.5)
[2024-07-20] MEDS: FLUOXETINE 20MG CAPSULE 20 MG PO ×2 (08:25→11:03)
[2024-07-20] MEDS: ENOXAPARIN 40MG/0.4ML SYRINGE 40 MG SQ (08:25)
[2024-07-20] MEDS: SIMETHICONE 40MG/0.6ML DROPS; 30ML BOTTLE 2.4 ML PO ×3 (08:25→20:43)
[2024-07-20 08:37] LABS: POC Glucose,Bedside 137 (70-110)
[2024-07-20] MEDS: OXYCODONE 5MG IMMEDIATE RELEASE TABLET 10 MG PO ×2 (11:03→22:43)
--- NOTE | 2024-07-20 11:07 | DIET.NUTRFU ---
Addendum entered by Candie Berger RD, LD 07/20/24 11:10: Will continue to monitor labs and hydration status Original Note: IV fluids discontinued, continues to receive TPN to meet nutritional needs. Labs reviewed Na 135L, albumin 2.6L. Nursing noted active bowel sounds but no movement. Still looking to transfer to another facility d/t complexity of case. I/O's on 07/19: inout with IVF and TPN= 3448ml and output including urine/NG suction and wound [id number] with -[id number]
--- NOTE | 2024-07-20 11:29 | EXP.ACUTE.PN ---
Subjective *Date: 07/20/24 *Time: 18:04 Interval history: Patient feeling somewhat down today. No fever, nausea, vomiting. No bowel movement in several days. Still having significant output from his abdominal wound, 2 to 300 cc a day. Afebrile overnight. Stable on room air Medical Exam Vital signs and Labs for Last 24 Hours: Vital Signs Temp Pulse Pulse Resp BP Pulse Ox O2 Del Method 07/20/24 08:00 97.9 F 57 L 18 119/64 95 Room Air 07/20/24 08:00 70 07/20/24 07:00 Room Air 07/20/24 05:00 Room Air 07/20/24 04:00 98.5 F 60 16 124/63 97 Room Air 07/20/24 04:00 60 07/20/24 03:00 Room Air 07/20/24 01:00 Room Air 07/20/24 00:00 60 07/20/24 00:00 98.7 F 66 16 121/67 97 Room Air 07/19/24 23:00 Room Air 07/19/24 21:00 Room Air 07/19/24 20:00 65 17 96 Room Air 07/19/24 20:00 70 07/19/24 20:00 98.9 F 65 17 111/59 L 96 Room Air 07/19/24 16:00 97.9 F 67 16 119/56 L 97 Room Air 07/19/24 16:00 60 07/19/24 12:00 60 07/19/24 12:00 98.1 F 61 16 116/55 L 97 Room Air Intake and Output 07/19/24 07/20/24 07/20/24 23:59 07:59 15:59 Intake Total 0 / 5590 2141 / 2141 0 2141 Output Total 2185 / 5810 1430 / 1630 200 / 1630 Balance -2185 / -220 712 / 512 -200 / 512 Intake: Intake, Oral Amount 0 10 0 Intake, Total IV Amount 2131 / 2131 0.9 % Sodium Chloride 1000ML 1, 287 / 287 000 ml @ 75 mls/hr IV .[id number] [facility] Rx#:[id number] Mvi, Adult No.1 with Vit K 10 1045 / 1045 ml Zinc/Copper/Megan/Chromic Chl 1 ml In Aa 5 %/Calcium/ Lytes/Dext 20 % 1,000 ml @ 65 mls/hr IV .[id number] [facility] Rx#: [id number] Piperacillin/Tazo 4.5 gm In 0.9 100 / 100 % Sodium Chloride 100 ml @ 200 mls/hr IV Q6H [facility] Rx#:[id number] Vancomycin/Water For Inj (Peg) 700 / 700 1.75 gm In 350 ml @ 175 mls/hr IV Q8H [facility] Rx#:[id number] Output: Output, Urine Amount 1325 / 3800 950 / 1150 200 / 1150 Output, Gastric Drainage Amount 810 / 1660 400 / 400 Right Nare 810 / 1660 400 / 400 Output, Drainage Amount 50 / 350 80 / 80 Medial Abdomen 50 / 350 80 / 80 Other: Number of Voids 1 Number of Unmeasured Voids 0 0 Weight 77.428 kg Patient Weight 07/20/24 23:59 Weight 77.428 kg Laboratory Results - last 24 hr 07/19/24 15:19: POC Glucose 121 H 07/19/24 21:56: POC Glucose 131 H 07/20/24 02:03: POC Glucose 131 H 07/20/24 07:05: WBC 5.3, RBC 3.26 L, Hgb 9.9 L, Hct 31.2 L, MCV 95.6 H, MCH 30.3, MCHC 31.7 L, RDW 13.8, Plt Count 498 H, MPV 8.6, Neut % (Auto) 66.0, Lymph % (Auto) 24.2, [place] % (Auto) 5.4, Eos % (Auto) 3.3, Baso % (Auto) 1.1, Neut # (Auto) 3.5, Lymph # (Auto) 1.3, [place] # (Auto) 0.3, Eos # (Auto) 0.2, Baso # (Auto) 0.1, Sodium 135 L, Potassium 4.4, Chloride 104, Carbon Dioxide 29, Anion Gap 6.4, BUN 10, Creatinine 0.60 L, Estimated Creat Clear 145, Estimated GFR 138, Est GFR ( Amer) 167, Glucose 117 H, Calcium 7.7 L, Phosphorus 3.8, Magnesium 2.1, Total Bilirubin 0.4, AST 46, ALT 57, Alkaline Phosphatase 86, Total Protein 5.7 L, Albumin 2.6 L, Globulin 3.1, Albumin/Globulin Ratio 0.8 L 07/20/24 08:29: POC Glucose 137 H I & O for Labs for Last 24 Hours: Intake & Output 07/17/24 07/18/24 07/19/24 07/20/24 23:59 23:59 23:59 23:59 Intake Total 3125 / 3125 2905 / 2905 3448 / 5590 2142 / 2142 Output Total 3725 / 3725 2475 / 2475 5560 / 5810 1630 / 1630 Balance -600 / -600 430 / 430 -2112 / -220 512 / 512 Weight 77.065 kg 77.519 kg 77.836 kg 77.428 kg Microbiology Reports for the Last 24 Hours: Microbiology 07/12/24 Unknown Abdomen - Final 07/12/24 Unknown Abdomen - Final 07/12/24 Unknown Abdomen - Final 07/12/24 Unknown Abdomen - Final 07/12/24 Unknown Abdomen - Final 07/12/24 Unknown Abdomen - Final 07/12/24 Unknown Abdomen - Final Constitutional: Present no acute distress, average body habitus and chronically ill appearing Head: Present normocephalic and normal inspection ENT: Present normal exam and normal oropharynx Neck: Present normal inspection and full ROM Respiratory: Present CTA bilaterally and normal respiratory effort; Absent stridor or crackles Cardiac: Present Reg Rate and Rhythm GI: Present soft, tenderness (Around surgical incision) and normal bowel sounds; Absent distention Comments:: Wound VAC place Rectal (male): Present deferred (male): Present deferred Extremities: Present normal inspection and full ROM Skin: Present intact and dry Neuro: Present alert, awake and oriented x 3 Assessment and Plan *Assessment and plan (1) Enterocutaneous fistula: Status: Acute Category: Medical Code(s): K63.2 - Fistula of intestine (2) Ileus, postoperative: Status: Acute Category: Medical Code(s): K91.89 - Other postprocedural complications and disorders of digestive system; K56.7 - Ileus, unspecified (3) Unintentional weight loss: Status: Acute Category: Medical Code(s): R63.4 - Abnormal weight loss (4) Abdominal wound dehiscence: Status: Acute Category: Medical Code(s): T81.30XA - Disruption of wound, unspecified, initial encounter (5) Abdominal wound dehiscence: Status: Acute Qualifiers: Encounter type: initial encounter Qualified Code(s): T81.30XA - Disruption of wound, unspecified, initial encounter Category: Medical Code(s): T81.30XA - Disruption of wound, unspecified, initial encounter (6) Nausea vomiting and diarrhea: Status: Acute Category: Medical Code(s): R11.2 - Nausea with vomiting, unspecified; R19.7 - Diarrhea, unspecified Plan 58-year-old male with PMHx of CAD s/p stent, open appendectomy, and recent bowel resection due to small bowel obstruction. Presented to surgery clinic with persistent nausea and vomiting, dehiscence of proximal portion of the surgical wound, and diarrhea. Patient received exploratory laparotomy small bowel resection with lysis of adhesions 06/17/24. Patient then discharged from hospital 06/24/2024. Patient had recurrent symptoms, and Demetrio presented to hospital for evaluation. Patient underwent second small bowel resection with lysis of adhesions procedure by general surgery 07/05/2024. Patient suffered from wound dehiscence, and was taken taken back to operating room for washout procedure 07/12/2024. Of special note, surgery did not have to reenter peritoneal cavity during washout procedure 07/12/2024. Large wound VAC drainage noted 07/13 to 07/15.07/15 CT abdomen/pelvis showed high output cutaneous fistula, with large fluid collection. Patient subsequently awaiting transfer to for surgical evaluation once bed available. Discussed case with surgeon at , patient still on wait list, at the top of that list awaiting bed availability. Problems addressed as follows: High output enterocutaneous fistula: ? Discussed case with surgeon at [facility], continue wound VAC. Strongly recommends transfer. Awaiting transfer as above. - continue routine perioperative care, Dilaudid IV for pain control wound vac dressing changed today by GS Postop ileus Transaminitis with Wound dehiscence, worsening - Leave NG in place. on TPN, monitoring with CBC, CMP, magnesium, calcium, phosphorus daily. Potassium 4.4, magnesium 2.1, phosphorus 3.8, calcium 7.7. Replacing via TPN. White count normal at 5.3. Hemoglobin low at 9.9 but stable. Liver enzymes normal with bilirubin 0.4, AST and ALT 46 and 57 respectively. - Zofran as needed every 8 hours for nausea Klebsiella and Citrobacter bacteremia Wound dehiscence suspicious for infection ?07/15 per recommendations from [facility] general surgery department, given high output enterocutaneous fistula IV Zosyn restarted. -ertapenem 1 g daily (07/06-07/13) -vancomycin for gram-positive coverage(07/12 to present). Closely monitoring of kidney function. Chronic conditions CAD s/p stent, Hx of heart attack depression: Increase Prozac to 40 mg daily SCD for DVT ppx Full code FEN: Full liquid diet, patient discontinued from TPN 07/09. restart TPN 07/15/2024 given inability to advance diet from liquids. Correct electrolytes as needed.
--- NOTE | 2024-07-20 12:56 | P.PN_ITS ---
Subjective Narrative: Patient without any new complaints. Does state that he had been passing some gas again today. It appears as though he had 350 cc drainage from the VAC yesterday. Exam Data for Last 24 hours Vital signs and Labs for Last 24 Hours: Temp Pulse Resp BP Pulse Ox O2 Del Method O2 Flow Rate 98.0 F 76 20 120/59 L 95 Room Air 2.5 07/20/24 12:00 07/20/24 12:00 07/20/24 12:00 07/20/24 12:00 07/20/24 12:00 07/20/24 12:00 07/09/24 08:00 FiO2 2 07/06/24 14:00 Laboratory Results - last 24 hr 07/19/24 15:19: POC Glucose 121 H 07/19/24 21:56: POC Glucose 131 H 07/20/24 02:03: POC Glucose 131 H 07/20/24 07:05: WBC 5.3, RBC 3.26 L, Hgb 9.9 L, Hct 31.2 L, MCV 95.6 H, MCH 30.3, MCHC 31.7 L, RDW 13.8, Plt Count 498 H, MPV 8.6, Neut % (Auto) 66.0, Lymph % (Auto) 24.2, [place] % (Auto) 5.4, Eos % (Auto) 3.3, Baso % (Auto) 1.1, Neut # (Auto) 3.5, Lymph # (Auto) 1.3, [place] # (Auto) 0.3, Eos # (Auto) 0.2, Baso # (Auto) 0.1, Sodium 135 L, Potassium 4.4, Chloride 104, Carbon Dioxide 29, Anion Gap 6.4, BUN 10, Creatinine 0.60 L, Estimated Creat Clear 145, Estimated GFR 138, Est GFR ( Amer) 167, Glucose 117 H, Calcium 7.7 L, Phosphorus 3.8, Magnesium 2.1, Total Bilirubin 0.4, AST 46, ALT 57, Alkaline Phosphatase 86, Total Protein 5.7 L, Albumin 2.6 L, Globulin 3.1, Albumin/Globulin Ratio 0.8 L 07/20/24 08:29: POC Glucose 137 H I & O for Last 24 hours: Intake & Output 07/18/24 07/19/24 07/20/24 07/21/24 11:59 11:59 11:59 11:59 Intake Total 4038 / 4038 4093 / 4093 2142 / 2142 Output Total 4800 / 4800 3350 / 3825 4290 / 4690 400 / 400 Balance -762 / -762 743 / 268 -2148 / -2548 -400 / -400 Weight 170 lb 14.4 oz 171 lb 9.6 oz 170 lb 11.2 oz Microbiology Reports for the Last 24 Hours: Microbiology 07/12/24 Unknown Abdomen - Final 07/12/24 Unknown Abdomen - Final 07/12/24 Unknown Abdomen - Final 07/12/24 Unknown Abdomen - Final 07/12/24 Unknown Abdomen - Final 07/12/24 Unknown Abdomen - Final 07/12/24 Unknown Abdomen - Final *Routine Abdominal Exam Comments: VAC dressing with good seal. In some retained wound drainage superiorly. Progress Note: A&P Assessment and plan (1) Enterocutaneous fistula: Status: Acute (2) Ileus, postoperative: Status: Acute (3) Unintentional weight loss: Status: Acute (4) Abdominal wound dehiscence: Status: Acute (5) Nausea vomiting and diarrhea: Status: Acute Assessment and Plan Assessment and Plan for All Diagnoses:: Awaiting bed availability at
--- NOTE | 2024-07-20 13:20 | PC.NURSE ---
took pt out side per doctor for 20-30 mins.
[2024-07-20] MEDS: FAT EMULSIONS 250 ML 60 ML IV (14:35)
[2024-07-20 16:37] LABS: POC Glucose,Bedside 129 (70-110)
--- NOTE | 2024-07-20 18:21 | PC.NURSE ---
pt a&ox4 vss. Patient went outside for sunshine today, mood much improved and patient in better spirits after. Patient has required less pain medication today. Patient's wound vac dressing changed by physical therapy, dressing currently CDI.
[2024-07-20] MEDS: [UNRECOGNIZED DRUG - OTHER] IV (19:40)
[2024-07-20] MEDS: DEX IV (19:40)
[2024-07-20] MEDS: AMINO ACID 5% IV (19:40)
[2024-07-20] MEDS: MELATONIN 5MG TABLET 10 MG PO (20:43)
[2024-07-20 22:29] LABS: POC Glucose,Bedside 114 (70-110)
--- NOTE | 2024-07-20 23:38 | PC.NURSE ---
[facility] called to get an update on pt. no bed available yet
[2024-07-21] VITALS: BP 102/48; PULSE 66; PULSE 70; RESP 16; TEMP 37.3; O2SAT 95
[2024-07-21] MEDS: HYDROMORPHONE 2MG/ML SYRINGE 1 MG IV ×7 (01:09→21:02)
[2024-07-21 02:22] LABS: POC Glucose,Bedside 138 (70-110)
[2024-07-21 04:00] VITALS: BP 112/56; PULSE 59; PULSE 60; RESP 16; TEMP 37.2; O2SAT 96; BMI 26.8
--- NOTE | 2024-07-21 04:00 | PC.NURSE ---
vss, a.febrile, ng tube to low wall sx, wound vac to abd working property, no air leaks or draiange noted, pt cont to c/o of sharp, achy pains in abd. treated per jan. pt answers orientation questions correctly but says questionable statements such as i need to get up and get a shower for work and i just seen someone go past my door in a hurry when no one had passed door. pt cont to have episodes of diaphoresis. no fever noted. fsbs wnl, tpn infusing @ 65ml/hr.
[2024-07-21] MEDS: METOCLOPRAMIDE HCL 10MG/2ML VIAL 5 MG IVP ×4 (05:19→22:15)
[2024-07-21 07:22] LABS: Chloride 102 mmol/L (98-107)
[2024-07-21 07:23] LABS: Potassium 4.3 mmoL/L (3.5-5.1); Sodium 134 mmol/L (136-145)
[2024-07-21 07:26] LABS: Alanine Aminotransferase 61 U/L (12-78); Albumin/Globulin Ratio 0.9 (1.1-1.8); Alkaline Phosphatase 109 U/L (38-126); Anion Gap 8.3 mEq/L (5-15); Aspartate Amino Transferase 50 U/L (17-59); Bilirubin,Total 0.5 mg/dl (0.2-1.3); Blood Urea Nitrogen 13 mg/dl (9-20); Calcium 8.3 mg/dl (8.4-10.2); Carbon Dioxide 28 mmol/L (22.0-30.0); Creatinine Clearance Estimated 174 mL/min (50-200); Estimated Glomerular Filt Rate 170 ml/min (>60); GFR (African American) 206 ML/MIN (>60); Globulin 3.3 g/dL (1.3-3.2); Glucose 105 mg/dl (74-100); Total Protein,Serum 6.3 g/dl (6.3-8.2)
[2024-07-21 07:27] LABS: Magnesium 2.1 mg/dl (1.6-2.3); Phosphorous 4.6 mg/dl (2.5-4.5)
[2024-07-21 07:42] LABS: Basophils # 0.1 K/mm3 (0-0.2); Eosinophils # 0.2 K/mm3 (0.0-0.4); Eosinophils % 3.3 % (0.1-12.0); Hemoglobin 9.9 g/dL (14.1-18.0); Lymphocytes # 1.3 K/mm3 (0.7-4.5); Lymphocytes % 20.4 % (10-50); Mean Corpuscular HGB Conc 30.8 g/dL (31.8-35.4); Mean Corpuscular Hemoglobin 29.1 pg (27.0-31.2); Mean Corpuscular Volume 94.3 fl (80-94); Mean Platelet Volume 9.1 fl (7.4-10.4); Monocytes # 0.4 K/mm3 (0.1-1.0); Monocytes % 5.5 % (1.7-9.3); Neutrophils # 4.5 K/mm3 (1.8-7.8); Neutrophils % 69.7 % (37.0-80.0); Platelet Count 565 K/mm3 (142-424); White Blood Count 6.4 K/mm3 (4.8-10.8)
[2024-07-21 08:00] VITALS: BP 112/67; PULSE 59; PULSE 60; RESP 16; TEMP 37.1; O2SAT 97
[2024-07-21 08:26] LABS: Cholesterol 107 mg/dl (140-200); Triglycerides 143 mg/dl (30-150)
[2024-07-21] MEDS: ENOXAPARIN 40MG/0.4ML SYRINGE 40 MG SQ (08:56)
[2024-07-21] MEDS: SIMETHICONE 40MG/0.6ML DROPS; 30ML BOTTLE 2.4 ML PO ×3 (08:57→21:02)
[2024-07-21] MEDS: FLUOXETINE 20MG CAPSULE 40 MG PO (08:57)
--- NOTE | 2024-07-21 09:48 | P.PN_ITS ---
Subjective Patient reports: no new complaints Narrative: No nausea. Pain improving. Passing gas. Moderate output from VAC, changed yesterday. Exam Data for Last 24 hours Vital signs and Labs for Last 24 Hours: Temp Pulse Resp BP Pulse Ox O2 Del Method O2 Flow Rate 98.7 F 59 L 16 112/67 97 Room Air 2.5 07/21/24 08:00 07/21/24 08:00 07/21/24 08:00 07/21/24 08:00 07/21/24 08:00 07/21/24 08:00 07/09/24 08:00 FiO2 2 07/06/24 14:00 Laboratory Results - last 24 hr 07/20/24 16:30: POC Glucose 129 H 07/20/24 20:52: POC Glucose 114 H 07/21/24 02:14: POC Glucose 138 H 07/21/24 07:00: WBC 6.4, RBC 3.40 L, Hgb 9.9 L, Hct 32.0 L, MCV 94.3 H, MCH 29.1, MCHC 30.8 L, RDW 14.0, Plt Count 565 H, MPV 9.1, Neut % (Auto) 69.7, Lymph % (Auto) 20.4, [place] % (Auto) 5.5, Eos % (Auto) 3.3, Baso % (Auto) 1.0, Neut # (Auto) 4.5, Lymph # (Auto) 1.3, [place] # (Auto) 0.4, Eos # (Auto) 0.2, Baso # (Auto) 0.1, Sodium 134 L, Potassium 4.3, Chloride 102, Carbon Dioxide 28, Anion Gap 8.3, BUN 13 D, Creatinine 0.50 L, Estimated Creat Clear 174, Estimated GFR 170, Est GFR ( Amer) 206 D, Glucose 105 H, Calcium 8.3 L, Phosphorus 4.6 H, Magnesium 2.1, Total Bilirubin 0.5, AST 50, ALT 61, Alkaline Phosphatase 109, Total Protein 6.3, Albumin 3.0 L D, Globulin 3.3 H, Albumin/Globulin Ratio 0.9 L , Triglycerides 143, Cholesterol 107 L I & O for Last 24 hours: Intake & Output 07/18/24 07/19/24 07/20/24 07/21/24 11:59 11:59 11:59 11:59 Intake Total 4038 / 4038 4093 / 4093 2142 / 2142 931 / 931 Output Total 4800 / 4800 3350 / 3825 4290 / 4690 2300 / 2300 Balance -762 / -762 743 / 268 -2148 / -2548 -1369 / -1369 Weight 170 lb 14.4 oz 171 lb 9.6 oz 170 lb 11.2 oz 170 lb 11.192 oz *Routine Abdominal Exam Comments: VAC in place and functioning Progress Note: A&P Assessment and plan (1) Enterocutaneous fistula: Status: Acute (2) Ileus, postoperative: Status: Acute (3) Unintentional weight loss: Status: Acute (4) Abdominal wound dehiscence: Status: Acute (5) Nausea vomiting and diarrhea: Status: Acute Assessment and Plan Assessment and Plan for All Diagnoses:: Still awaiting bed availability at [facility].
[2024-07-21 09:56] LABS: POC Glucose,Bedside 125 (70-110)
--- NOTE | 2024-07-21 10:06 | PC.NURSE ---
[facility] CALLED FOR UPDATE ON PATIENT CONDITION- LABS, VITALS AND INTERVENTIONS DESCRIBED. STILL NO BED AVAILABLE. THEY WILL CALL WHEN THEY HAVE AN UPDATE
[2024-07-21 12:00] VITALS: BP 115/61; PULSE 58; PULSE 60; RESP 16; TEMP 36.9; O2SAT 95
--- NOTE | 2024-07-21 12:11 | EXP.ACUTE.PN ---
Subjective *Date: 07/21/24 *Time: 16:11 Interval history: Patient feeling somewhat better today. No fever, nausea, vomiting. No bowel movement in several days, still having flatus however. Still having significant output from his abdominal wound, 2 to 300 cc a day. Afebrile overnight. Stable on room air. Enjoyed going outside yesterday. Encouraged to do it again today. Medical Exam Vital signs and Labs for Last 24 Hours: Vital Signs Temp Pulse Pulse Resp BP Pulse Ox O2 Del Method 07/21/24 11:00 Room Air 07/21/24 09:00 Room Air 07/21/24 08:00 97 Room Air 07/21/24 08:00 60 07/21/24 08:00 98.7 F 59 L 16 112/67 97 Room Air 07/21/24 07:00 Room Air 07/21/24 05:00 Room Air 07/21/24 04:00 60 07/21/24 04:00 98.9 F 59 L 16 112/56 L 96 Room Air 07/21/24 03:00 Room Air 07/21/24 01:00 Room Air 07/21/24 00:00 70 07/21/24 00:00 99.1 F 66 16 102/48 L 95 Room Air 07/20/24 23:00 Room Air 07/20/24 21:00 Room Air 07/20/24 20:00 70 07/20/24 19:58 Room Air 07/20/24 19:41 98.4 F 69 16 127/67 97 Room Air 07/20/24 16:00 60 07/20/24 16:00 98.2 F 66 18 118/61 96 Room Air Intake and Output 07/20/24 07/21/24 07/21/24 23:59 07:59 15:59 Intake Total 0 2141 931 / 956 25 / 956 Output Total 800 / 2830 1100 / 1100 Balance -800 / -688 -169 / -144 25 / -144 Intake: Intake, Oral Amount 0 10 Intake, Total IV Amount 931 / 931 Piperacillin/Tazo 4.5 gm In 0.9 931 / 931 % Sodium Chloride 100 ml @ 200 mls/hr IV Q6H [facility] Rx#:[id number] Output: Output, Urine Amount 800 / 2350 600 / 600 Output, Gastric Drainage Amount 500 / 500 Right Nare 500 / 500 Other: Number of Unmeasured Voids 0 Weight 77.428 kg Patient Weight 07/21/24 23:59 Weight 77.428 kg Laboratory Results - last 24 hr 07/20/24 16:30: POC Glucose 129 H 07/20/24 20:52: POC Glucose 114 H 07/21/24 02:14: POC Glucose 138 H 07/21/24 07:00: WBC 6.4, RBC 3.40 L, Hgb 9.9 L, Hct 32.0 L, MCV 94.3 H, MCH 29.1, MCHC 30.8 L, RDW 14.0, Plt Count 565 H, MPV 9.1, Neut % (Auto) 69.7, Lymph % (Auto) 20.4, [place] % (Auto) 5.5, Eos % (Auto) 3.3, Baso % (Auto) 1.0, Neut # (Auto) 4.5, Lymph # (Auto) 1.3, [place] # (Auto) 0.4, Eos # (Auto) 0.2, Baso # (Auto) 0.1, Sodium 134 L, Potassium 4.3, Chloride 102, Carbon Dioxide 28, Anion Gap 8.3, BUN 13 D, Creatinine 0.50 L, Estimated Creat Clear 174, Estimated GFR 170, Est GFR ( Amer) 206 D, Glucose 105 H, Calcium 8.3 L, Phosphorus 4.6 H, Magnesium 2.1, Total Bilirubin 0.5, AST 50, ALT 61, Alkaline Phosphatase 109, Total Protein 6.3, Albumin 3.0 L D, Globulin 3.3 H, Albumin/Globulin Ratio 0.9 L, Triglycerides 143, Cholesterol 107 L 07/21/24 09:50: POC Glucose 125 H I & O for Labs for Last 24 Hours: Intake & Output 07/18/24 07/19/24 07/20/24 07/21/24 23:59 23:59 23:59 23:59 Intake Total 2905 / 2905 3448 / 5590 2142 / 2142 956 / 956 Output Total 2475 / 2475 5560 / 5810 2830 / 2830 1100 / 1100 Balance 430 / 430 -2112 / -220 -688 / -688 -144 / -144 Weight 77.519 kg 77.836 kg 77.428 kg 77.428 kg Constitutional: Present no acute distress, average body habitus and chronically ill appearing Head: Present normocephalic and normal inspection ENT: Present normal exam and normal oropharynx Neck: Present normal inspection and full ROM Respiratory: Present CTA bilaterally and normal respiratory effort; Absent stridor or crackles Cardiac: Present Reg Rate and Rhythm GI: Present soft, tenderness (Around surgical incision) and normal bowel sounds; Absent distention Comments:: Wound VAC place Rectal (male): Present deferred (male): Present deferred Extremities: Present normal inspection and full ROM Skin: Present intact and dry Neuro: Present alert, awake and oriented x 3 Assessment and Plan *Assessment and plan (1) Enterocutaneous fistula: Status: Acute Category: Medical Code(s): K63.2 - Fistula of intestine (2) Ileus, postoperative: Status: Acute Category: Medical Code(s): K91.89 - Other postprocedural complications and disorders of digestive system; K56.7 - Ileus, unspecified (3) Unintentional weight loss: Status: Acute Category: Medical Code(s): R63.4 - Abnormal weight loss (4) Abdominal wound dehiscence: Status: Acute Category: Medical Code(s): T81.30XA - Disruption of wound, unspecified, initial encounter (5) Abdominal wound dehiscence: Status: Acute Qualifiers: Encounter type: initial encounter Qualified Code(s): T81.30XA - Disruption of wound, unspecified, initial encounter Category: Medical Code(s): T81.30XA - Disruption of wound, unspecified, initial encounter (6) Nausea vomiting and diarrhea: Status: Acute Category: Medical Code(s): R11.2 - Nausea with vomiting, unspecified; R19.7 - Diarrhea, unspecified Plan 58-year-old male with PMHx of CAD s/p stent, open appendectomy, and recent bowel resection due to small bowel obstruction. Presented to surgery clinic with persistent nausea and vomiting, dehiscence of proximal portion of the surgical wound, and diarrhea. Patient received exploratory laparotomy small bowel resection with lysis of adhesions 06/17/24. Patient then discharged from hospital 06/24/2024. Patient had recurrent symptoms, and Demetrio presented to hospital for evaluation. Patient underwent second small bowel resection with lysis of adhesions procedure by general surgery 07/05/2024. Patient suffered from wound dehiscence, and was taken taken back to operating room for washout procedure 07/12/2024. Of special note, surgery did not have to reenter peritoneal cavity during washout procedure 07/12/2024. Large wound VAC drainage noted 07/13 to 07/15.07/15 CT abdomen/pelvis showed high output cutaneous fistula, with large fluid collection. Patient subsequently awaiting transfer to for surgical evaluation once bed available. Discussed case with surgeon at , patient still on wait list, at the top of that list awaiting bed availability. Problems addressed as follows: High output enterocutaneous fistula: ? Discussed case with surgeon at [facility], continue wound VAC. Strongly recommends transfer. Awaiting transfer as above. - continue routine perioperative care, Dilaudid IV for pain control wound vac dressing changed today by Postop ileus Transaminitis with Wound dehiscence, worsening - Leave NG in place. on TPN, monitoring with CBC, CMP, magnesium, calcium, phosphorus daily. Potassium 4.4, magnesium 2.1, phosphorus 3.8, calcium 7.7. Replacing via TPN. White count normal at 5.3. Hemoglobin low at 9.9 but stable. Liver enzymes normal with bilirubin 0.4, AST and ALT 46 and 57 respectively. - Zofran as needed every 8 hours for nausea Klebsiella and Citrobacter bacteremia Wound dehiscence suspicious for infection ?07/15 per recommendations from general surgery department, given high output enterocutaneous fistula IV Zosyn restarted. -ertapenem 1 g daily (07/06-07/13) -vancomycin for gram-positive coverage(07/12 to present). Closely monitoring of kidney function. Chronic conditions CAD s/p stent, Hx of heart attack depression: Increase Prozac to 40 mg daily SCD for DVT ppx Full code FEN: Full liquid diet, patient discontinued from TPN 07/09. restart TPN 07/15/2024 given inability to advance diet from liquids. Correct electrolytes as needed.
[2024-07-21] MEDS: AA 5 %/CALCIUM/LYTES/DEXT 20 % 1,000 ML 65 ML IV (12:19)
[2024-07-21] MEDS: FAT EMULSIONS 250 ML 60 ML IV (13:34)
[2024-07-21 14:48] LABS: POC Glucose,Bedside 123 (70-110)
[2024-07-21 16:00] VITALS: BP 109/71; PULSE 60; PULSE 75; RESP 18; TEMP 36.6; O2SAT 93
--- NOTE | 2024-07-21 17:37 | PC.NURSE ---
pt currently laying supine in bed resting with eyes closed. pt has complained of intermittent pain this shift and has been treated per MAR. NG tube in the rt nare @ 63 to lws. 400ml of dark green fluid out this shift. TPN infusing @65 with glucose levels around 125-126. midline dressing in place and wound vac attached going at 175. dressing c/d/i. new IV placed in the left wrist due to the one in the left forearm leaking. pt received a full shower, bed change, and shave and tolerated well. family has been at bedside for the majority of the shift. pt has been compliant with care. [facility] called this am for and update on the pt and said that they would be keeping in touch. vss. bowel sounds active and lungs clear. no bm this shift, but adequate urine output. see i &O. bed in low and locked position. call light within reach.
[2024-07-21 20:00] VITALS: BP 120/69; PULSE 60; PULSE 71; RESP 16; TEMP 37; O2SAT 95
[2024-07-21 20:31] LABS: POC Glucose,Bedside 118 (70-110)
[2024-07-21] MEDS: MELATONIN 5MG TABLET 10 MG PO (21:02)
[2024-07-22] VITALS: BP 108/55; PULSE 60; PULSE 65; RESP 16; TEMP 36.9; O2SAT 94
[2024-07-22] MEDS: AA 5 %/CALCIUM/LYTES/DEXT 20 % 1,000 ML 65 ML IV (02:44)
--- NOTE | 2024-07-22 02:50 | PC.NURSE ---
transfer center called for update on patient. Still no bed available at this time
[2024-07-22 04:00] VITALS: BP 105/54; PULSE 60; PULSE 71; RESP 18; TEMP 37.1; O2SAT 94; BMI 26.8
[2024-07-22] MEDS: HYDROMORPHONE 2MG/ML SYRINGE 1 MG IV ×7 (05:39→23:19)
[2024-07-22] MEDS: METOCLOPRAMIDE HCL 10MG/2ML VIAL 5 MG IVP ×4 (05:39→23:19)
[2024-07-22 08:00] VITALS: BP 127/65; PULSE 74; PULSE 80; RESP 20; TEMP 36.6; O2SAT 98
[2024-07-22] MEDS: ENOXAPARIN 40MG/0.4ML SYRINGE 40 MG SQ (08:14)
[2024-07-22] MEDS: SIMETHICONE 40MG/0.6ML DROPS; 30ML BOTTLE 2.4 ML PO ×3 (08:15→20:08)
[2024-07-22] MEDS: FLUOXETINE 20MG CAPSULE 40 MG PO (08:15)
[2024-07-22 10:30] LABS: POC Glucose,Bedside 136 (70-110)
--- NOTE | 2024-07-22 11:22 | P.PN_ITS ---
Subjective Patient reports: no new complaints Narrative: Patient states that he has been passing some gas. No nausea. Pain controlled. Exam Data for Last 24 hours Vital signs and Labs for Last 24 Hours: Temp Pulse Resp BP Pulse Ox O2 Del Method O2 Flow Rate 97.9 F 74 20 127/65 98 Room Air 2.5 07/22/24 08:00 07/22/24 08:00 07/22/24 08:00 07/22/24 08:00 07/22/24 08:00 07/22/24 09:00 07/09/24 08:00 FiO2 2 07/06/24 14:00 Laboratory Results - last 24 hr 07/21/24 14:39: POC Glucose 123 H 07/21/24 20:22: POC Glucose 118 H 07/22/24 10:24: POC Glucose 136 H I & O for Last 24 hours: Intake & Output 07/19/24 07/20/24 07/21/24 07/22/24 11:59 11:59 11:59 11:59 Intake Total 4093 / 4093 2142 / 2142 956 / 956 1329 / 1329 Output Total 3350 / 3825 4290 / 4690 2300 / 2300 2535 / 2535 Balance 743 / 268 -2148 / -2548 -1344 / -1344 -1206 / -1206 Weight 171 lb 9.6 oz 170 lb 11.2 oz 170 lb 11.192 oz 170 lb 11.192 oz *Routine Abdominal Exam Abdominal: Present soft Comments: VAC dressing functioning. Progress Note: A&P Assessment and plan (1) Enterocutaneous fistula: Status: Acute (2) Ileus, postoperative: Status: Acute (3) Unintentional weight loss: Status: Acute (4) Abdominal wound dehiscence: Status: Acute (5) Nausea vomiting and diarrhea: Status: Acute Assessment and Plan Assessment and Plan for All Diagnoses:: Patient is postoperative day #17 from his second laparotomy with bowel resection and postop day #10 after he had the wound opened for presumed anastomotic leak and enterocutaneous fistula. Most assuredly patient has intra-abdominal fluid collections needing drainage with interventional radiology. He is still awaiting bed availability at [facility]. I offered the patient possible removal of the nasogastric tube to see if this changes his fistula output. He wishes to keep the NG tube at this time.
[2024-07-22 11:32] LABS: Basophils % 0.5 % (0.1-2.0); Eosinophils # 0.1 K/mm3 (0.0-0.4); Eosinophils % 1.7 % (0.1-12.0); Hematocrit 32.2 % (42.0-52.0); Hemoglobin 10.1 g/dL (14.1-18.0); Lymphocytes # 1.4 K/mm3 (0.7-4.5); Lymphocytes % 19.5 % (10-50); Mean Corpuscular HGB Conc 31.5 g/dL (31.8-35.4); Mean Corpuscular Hemoglobin 29.8 pg (27.0-31.2); Mean Corpuscular Volume 94.5 fl (80-94); Mean Platelet Volume 8.3 fl (7.4-10.4); Monocytes # 0.4 K/mm3 (0.1-1.0); Monocytes % 5.1 % (1.7-9.3); Neutrophils # 5.2 K/mm3 (1.8-7.8); Neutrophils % 73.2 % (37.0-80.0); Platelet Count 540 K/mm3 (142-424); Red Cell Distribution Width 13.9 % (11.5-17.5); White Blood Count 7.1 K/mm3 (4.8-10.8)
[2024-07-22 11:33] LABS: Chloride 101 mmol/L (98-107)
[2024-07-22 11:34] LABS: Albumin Level 3.2 g/dl (3.5-5.0); Potassium 4.2 mmoL/L (3.5-5.1); Sodium 135 mmol/L (136-145)
[2024-07-22 11:36] LABS: Blood Urea Nitrogen 15 mg/dl (9-20); Creatinine Clearance Estimated 145 mL/min (50-200); Estimated Glomerular Filt Rate 138 ml/min (>60); GFR (African American) 167 ML/MIN (>60)
[2024-07-22 11:37] LABS: Alanine Aminotransferase 69 U/L (12-78); Albumin/Globulin Ratio 0.9 (1.1-1.8); Alkaline Phosphatase 101 U/L (38-126); Anion Gap 8.2 mEq/L (5-15); Aspartate Amino Transferase 47 U/L (17-59); Bilirubin,Total 0.5 mg/dl (0.2-1.3); Calcium 8.6 mg/dl (8.4-10.2); Carbon Dioxide 30 mmol/L (22.0-30.0); Globulin 3.4 g/dL (1.3-3.2); Glucose 130 mg/dl (74-100); Total Protein,Serum 6.6 g/dl (6.3-8.2)
[2024-07-22 12:00] VITALS: BP 107/61; PULSE 65; PULSE 70; RESP 18; TEMP 36.5; O2SAT 95
[2024-07-22 12:36] LABS: Magnesium 2.1 mg/dl (1.6-2.3); Phosphorous 4.8 mg/dl (2.5-4.5)
--- NOTE | 2024-07-22 12:48 | P.PN_ITS ---
Subjective *Date: 07/22/24 *Time: 12:48 Interval history: Patient feeling well today. No fever, nausea, vomiting. No bowel movement in several days, still having flatus however. Still having significant output from his abdominal wound, 2-300 cc a day. Afebrile overnight. Stable on room air. Going outside daily. Medical Exam Vital signs and Labs for Last 24 Hours: Vital Signs Temp Pulse Pulse Resp BP Pulse Ox O2 Del Method 07/22/24 12:00 97.7 F 70 18 107/61 L 95 Room Air 07/22/24 11:00 Room Air 07/22/24 09:00 Room Air 07/22/24 08:00 Room Air 07/22/24 08:00 97.9 F 74 20 127/65 98 Room Air 07/22/24 08:00 80 07/22/24 04:00 98.8 F 71 18 105/54 L 94 L Room Air 07/22/24 04:00 60 07/22/24 00:00 98.5 F 65 16 108/55 L 94 L Room Air 07/22/24 00:00 60 07/21/24 20:00 60 07/21/24 20:00 98.6 F 71 16 120/69 95 Room Air 07/21/24 18:39 Room Air 07/21/24 17:00 Room Air 07/21/24 16:00 60 07/21/24 16:00 97.9 F 75 18 109/71 L 93 L Room Air 07/21/24 15:00 Room Air 07/21/24 13:00 Room Air Intake and Output 07/21/24 07/22/24 07/22/24 23:59 07:59 15:59 Intake Total 709 / 2285 620 / 620 Output Total 760 / 2660 1775 / 1925 150 / 1925 Balance -51 / -375 -1155 / -1305 -150 / -1305 Intake: Intake, Oral Amount 100 / 100 Intake, Other Amount 709 / 709 Infusion Intake 520 / 520 Aa 5 %/Calcium/Lytes/Dext 20 % 520 / 520 1,000 ml @ 65 mls/hr IV . [id number] ONE Rx#:[id number] Output: Output, Urine Amount 360 / 1360 975 / 1125 150 / 1125 Output, Gastric Drainage Amount 400 / 1300 800 / 800 Right Nare 400 / 1300 800 / 800 Other: Weight 77.428 kg Patient Weight 07/22/24 23:59 Weight 77.428 kg Laboratory Results - last 24 hr 07/21/24 14:39: POC Glucose 123 H 07/21/24 20:22: POC Glucose 118 H 07/22/24 10:24: POC Glucose 136 H 07/22/24 11:15: WBC 7.1, RBC 3.40 L, Hgb 10.1 L, Hct 32.2 L, MCV 94.5 H, MCH 29.8, MCHC 31.5 L, RDW 13.9, Plt Count 540 H, MPV 8.3, Neut % (Auto) 73.2, Lymph % (Auto) 19.5, [place] % (Auto) 5.1, Eos % (Auto) 1.7, Baso % (Auto) 0.5, Neut # (Auto) 5.2, Lymph # (Auto) 1.4, [place] # (Auto) 0.4, Eos # (Auto) 0.1, Baso # (Auto) 0.0, Sodium 135 L, Potassium 4.2, Chloride 101, Carbon Dioxide 30, Anion Gap 8.2, BUN 15, Creatinine 0.60 L, Estimated Creat Clear 145, Estimated GFR 138, Est GFR ( Amer) 167, Glucose 130 H, Calcium 8.6, Phosphorus 4.8 H, Magnesium 2.1, Total Bilirubin 0.5, AST 47, ALT 69, Alkaline Phosphatase 101, Total Protein 6.6, Albumin 3.2 L, Globulin 3.4 H, Albumin/Globulin Ratio 0.9 L I & O for Labs for Last 24 Hours: Intake & Output 07/19/24 07/20/24 07/21/24 07/22/24 23:59 23:59 23:59 23:59 Intake Total 3448 / 5590 2142 / 2142 1665 / 2285 620 / 620 Output Total 5560 / 5810 2830 / 2830 1860 / 2660 1925 / 1925 Balance -2112 / -220 -688 / -688 -195 / -375 -1305 / -1305 Weight 77.836 kg 77.428 kg 77.428 kg 77.428 kg Constitutional: Present no acute distress, average body habitus and chronically ill appearing Head: Present normocephalic and normal inspection ENT: Present normal exam and normal oropharynx Neck: Present normal inspection and full ROM Respiratory: Present CTA bilaterally and normal respiratory effort; Absent stridor or crackles Cardiac: Present Reg Rate and Rhythm GI: Present soft, tenderness (Around surgical incision) and normal bowel sounds; Absent distention Comments:: Wound VAC place Rectal (male): Present deferred (male): Present deferred Extremities: Present normal inspection and full ROM Skin: Present intact and dry Neuro: Present alert, awake and oriented x 3 Assessment and Plan *Assessment and plan (1) Enterocutaneous fistula: Status: Acute Category: Medical Code(s): K63.2 - Fistula of intestine (2) Ileus, postoperative: Status: Acute Category: Medical Code(s): K91.89 - Other postprocedural complications and disorders of digestive system; K56.7 - Ileus, unspecified (3) Unintentional weight loss: Status: Acute Category: Medical Code(s): R63.4 - Abnormal weight loss (4) Abdominal wound dehiscence: Status: Acute Category: Medical Code(s): T81.30XA - Disruption of wound, unspecified, initial encounter (5) Abdominal wound dehiscence: Status: Acute Qualifiers: Encounter type: initial encounter Qualified Code(s): T81.30XA - Disruption of wound, unspecified, initial encounter Category: Medical Code(s): T81.30XA - Disruption of wound, unspecified, initial encounter (6) Nausea vomiting and diarrhea: Status: Acute Category: Medical Code(s): R11.2 - Nausea with vomiting, unspecified; R19.7 - Diarrhea, unspecified Plan 58-year-old male with PMHx of CAD s/p stent, open appendectomy, and recent bowel resection due to small bowel obstruction. Presented to surgery clinic with persistent nausea and vomiting, dehiscence of proximal portion of the surgical wound, and diarrhea. Patient received exploratory laparotomy small bowel resection with lysis of adhesions 06/17/24. Patient then discharged from hospital 06/24/2024. Patient had recurrent symptoms, and re-presented to hospital for evaluation. Patient underwent second small bowel resection with lysis of adhesions procedure by general surgery 07/05/2024. Patient suffered from wound dehiscence, and was taken taken back to operating room for washout procedure 07/12/2024. Of special note, surgery did not have to reenter peritoneal cavity during washout procedure 07/12/2024. Large wound VAC drainage noted 07/13 to 07/15.07/15 CT abdomen/pelvis showed high output cutaneous fistula, with large fluid collection. Patient subsequently awaiting transfer to for surgical evaluation once bed available. Discussed case with [facility], patient still on wait list, at the top of that list awaiting bed availability. Problems addressed as follows: High output enterocutaneous fistula: ? Discussed case with surgeon at [facility], continue wound VAC. Strongly recommends transfer. Awaiting transfer as above. - continue routine perioperative care, Dilaudid IV for pain control. wound vac dressing changed today by Postop ileus Transaminitis with Wound dehiscence, worsening - Leave NG in place, reevaluate for possible removal tomorrow on TPN, monitoring with CBC, CMP, magnesium, calcium, phosphorus daily. Sodium 135, potassium 4.2, creatinine 0.6, phosphorus 4.8, calcium 8.6, magnesium 2.1. Replacing as needed. Albumin improving at 3.2. -LFTs normal - Zofran as needed every 8 hours for nausea Klebsiella and Citrobacter bacteremia Wound dehiscence suspicious for infection ? Has completed 2 rounds of antibiotics. No indication for antibiotics at this time. White count normal at 7.1. Hemoglobin normal at 10.1. Platelets 540. Continue to monitor for signs of infection. Clinically stable Chronic conditions CAD s/p stent, Hx of heart attack depression: Tolerating increased Prozac dose of 40 mg daily SCD for DVT ppx Full code FEN: Full liquid diet, patient discontinued from TPN 07/09. restart TPN 07/15/2024 given inability to advance diet from liquids. Correct electrolytes as needed.
[2024-07-22] MEDS: FAT EMULSIONS 250 ML 60 ML IV (14:15)
[2024-07-22 15:36] VITALS: BP 124/69; PULSE 72; RESP 18; TEMP 36.7; O2SAT 97
--- NOTE | 2024-07-22 16:15 | PC.NURSE ---
per , ok to take pt back off telemetry
[2024-07-22 17:20] LABS: POC Glucose,Bedside 106 (70-110)
--- NOTE | 2024-07-22 17:22 | PC.NURSE ---
A&OX4. TOLERATING RA WELL. PATIENT HAS BEEN IN A VERY GOOD MOOD TODAY. MUCH MORE HIMSELF. NG PRESENT AT 63CM TO RIGHT NARE. GREEN[place] BROWN FLUID COMING FROM NG TO LOW WALL SUCTION. APPX 100ML OUT THUS FAR THIS SHIFT. WOUND VAC PRESENT TO LOWER ABD. WOUND VAC DRESSING CHANGED TODAY. PT TOLERATED THIS VERY WELL WITH PAIN MEDICATION ON BOARD. SMALL AMOUNT OF DRAINAGE NOTED DURING DRESSING CHANGE. NEW DRESSING CDI. WOUND VAC WORKING APPROPRIATELY RUNNING AT 175. CURRENT CONTAINER IS ABOUT 3/4 FULL OF GREEN[place] BROWN FLUID. PATIENT HAS C/O INTERMITTENT ABD PAIN ABOUT Q2H. MEDICATED PER JAN, EFFECTIVENESS NOTED. PATIENT HAS BEEN UP AND TAKEN OUTSIDE TODAY ONCE SO FAR. PATIENT VERY MUCH ENJOYS THIS. RESTING IN BED AT THIS TIME, ABLE TO ADJUST SELF IN BED EASILY. NO NEEDS OR C/O NOTED, VSS.
[2024-07-22 20:00] VITALS: BP 117/68; PULSE 73; RESP 18; TEMP 37.3; O2SAT 95
[2024-07-22] MEDS: MELATONIN 5MG TABLET 10 MG PO (20:06)
[2024-07-22] MEDS: OXYCODONE 5MG IMMEDIATE RELEASE TABLET 10 MG PO (20:09)
[2024-07-22] MEDS: [UNRECOGNIZED DRUG - REMARK] 65 ML IV (21:23)
[2024-07-22 22:19] LABS: POC Glucose,Bedside 139 (70-110)
[2024-07-23] VITALS: BP 118/67; PULSE 69; RESP 16; TEMP 37; O2SAT 94
[2024-07-23] MEDS: HYDROMORPHONE 2MG/ML SYRINGE 1 MG IV ×4 (01:09→13:50)
--- NOTE | 2024-07-23 01:28 | PC.NURSE ---
Received a call from [facility] updating on recent vitals and condition. No bed available at this time. They will call with any updates.
[2024-07-23 04:00] VITALS: BP 111/67; PULSE 81; RESP 18; TEMP 36.6; O2SAT 94; BMI 25.6
[2024-07-23] MEDS: METOCLOPRAMIDE HCL 10MG/2ML VIAL 5 MG IVP ×4 (04:27→22:12)
--- NOTE | 2024-07-23 05:34 | PC.NURSE ---
Pt is A&OX4 and has tolerated room air. Lung sounds clear and bowel sounds active in all quadrants. Pt did have a small BM this morning. NG has remained in place with brown/green drainage. Wound vac has remained in place and canister was changed early this morning. Pt has complained of abdominal pain multiple times throughout the night and was treated per the MAR. TPN has been running throughout the shift and blood sugars have remained in the 120's to 130's. Currently has no complaints at this time, call light within reach.
[2024-07-23 06:02] LABS: Basophils # 0.1 K/mm3 (0-0.2); Basophils % 0.5 % (0.1-2.0); Eosinophils # 0.2 K/mm3 (0.0-0.4); Eosinophils % 2.4 % (0.1-12.0); Hematocrit 32.5 % (42.0-52.0); Hemoglobin 10.2 g/dL (14.1-18.0); Lymphocytes # 1.1 K/mm3 (0.7-4.5); Lymphocytes % 12.3 % (10-50); Mean Corpuscular HGB Conc 31.4 g/dL (31.8-35.4); Mean Corpuscular Hemoglobin 29.7 pg (27.0-31.2); Mean Corpuscular Volume 94.8 fl (80-94); Mean Platelet Volume 8.2 fl (7.4-10.4); Monocytes # 0.5 K/mm3 (0.1-1.0); Neutrophils # 7.4 K/mm3 (1.8-7.8); Neutrophils % 79.8 % (37.0-80.0); Platelet Count 563 K/mm3 (142-424); Red Blood Count 3.43 M/mm3 (4.60-6.20); Red Cell Distribution Width 14.1 % (11.5-17.5); White Blood Count 9.2 K/mm3 (4.8-10.8)
[2024-07-23 06:15] LABS: POC Glucose,Bedside 116 (70-110)
[2024-07-23 07:22] VITALS: BP 114/81; PULSE 66; RESP 14; TEMP 36.5; O2SAT 96
[2024-07-23] MEDS: ENOXAPARIN 40MG/0.4ML SYRINGE 40 MG SQ (09:26)
[2024-07-23] MEDS: FLUOXETINE 20MG CAPSULE 40 MG PO (09:27)
[2024-07-23] MEDS: SIMETHICONE 40MG/0.6ML DROPS; 30ML BOTTLE 2.4 ML PO ×3 (09:27→20:48)
[2024-07-23 09:58] LABS: Albumin Level 3.1 g/dl (3.5-5.0); Chloride 99 mmol/L (98-107); Sodium 134 mmol/L (136-145)
[2024-07-23 09:59] LABS: Potassium 4.2 mmoL/L (3.5-5.1)
[2024-07-23 10:01] LABS: Alanine Aminotransferase 68 U/L (12-78); Albumin/Globulin Ratio 0.9 (1.1-1.8); Anion Gap 7.2 mEq/L (5-15); Aspartate Amino Transferase 47 U/L (17-59); Blood Urea Nitrogen 20 mg/dl (9-20); Carbon Dioxide 32 mmol/L (22.0-30.0); Creatinine Clearance Estimated 139 mL/min (50-200); Estimated Glomerular Filt Rate 138 ml/min (>60); GFR (African American) 167 ML/MIN (>60); Globulin 3.5 g/dL (1.3-3.2); Phosphorous 5.3 mg/dl (2.5-4.5); Total Protein,Serum 6.6 g/dl (6.3-8.2)
[2024-07-23 10:02] LABS: Alkaline Phosphatase 102 U/L (38-126); Bilirubin,Total 0.5 mg/dl (0.2-1.3); Calcium 8.6 mg/dl (8.4-10.2); Glucose 134 mg/dl (74-100)
[2024-07-23 10:43] LABS: POC Glucose,Bedside 136 (70-110)
[2024-07-23] MEDS: MAGNESIUM SULFATE IN WATER 2 GM/50 ML PIGGYBACK IV (10:55)
[2024-07-23 12:00] VITALS: BP 123/60; PULSE 63; RESP 14; TEMP 36.5; O2SAT 96
[2024-07-23] MEDS: AA 5 %/CALCIUM/LYTES/DEXT 20 % 1,000 ML 65 ML IV (12:00)
--- NOTE | 2024-07-23 12:30 | DIET.NUTRFU ---
Patient continues on TPN for 100% nutrition. Plan today is to pull NG tube. He was noted to have bowel movement today. Not ready for oral intake at this time. Labs were reviewed during rounds, phosphorous level high at 5.3, no action taken at this time. still trying to transfer to [facility]
--- NOTE | 2024-07-23 12:44 | EXP.SURG.PN ---
Subjective Narrative: Patient states that he had a bowel movement. He has some increased tenderness at the wound site. Minimal NG output which appears essentially resembling melted ice chips. Exam Data for Last 24 hours Vital signs and Labs for Last 24 Hours: Temp Pulse Resp BP Pulse Ox O2 Del Method O2 Flow Rate 97.7 F 63 14 123/60 96 Room Air 2.5 07/23/24 12:00 07/23/24 12:00 07/23/24 12:00 07/23/24 12:00 07/23/24 12:00 07/23/24 12:00 07/09/24 08:00 FiO2 2 07/06/24 14:00 Laboratory Results - last 24 hr 07/22/24 17:14: POC Glucose 106 07/22/24 22:05: POC Glucose 139 H 07/23/24 04:54: POC Glucose 116 H 07/23/24 05:55: WBC 9.2 D, RBC 3.43 L, Hgb 10.2 L, Hct 32.5 L, MCV 94.8 H, MCH 29.7, MCHC 31.4 L, RDW 14.1, Plt Count 563 H, MPV 8.2, Neut % (Auto) 79.8, Lymph % (Auto) 12.3, [place] % (Auto) 5.0, Eos % (Auto) 2.4, Baso % (Auto) 0.5, Neut # (Auto) 7.4, Lymph # (Auto) 1.1, [place] # (Auto) 0.5, Eos # (Auto) 0.2, Baso # (Auto) 0.1, Sodium 134 L, Potassium 4.2, Chloride 99, Carbon Dioxide 32 H, Anion Gap 7.2, BUN 20 D, Creatinine 0.60 L, Estimated Creat Clear 139, Estimated GFR 138, Est GFR ( Amer) 167, Glucose 134 H, Calcium 8.6, Phosphorus 5.3 H, Magnesium 2.0, Total Bilirubin 0.5, AST 47, ALT 68, Alkaline Phosphatase 102, Total Protein 6.6, Albumin 3.1 L, Globulin 3.5 H, Albumin/Globulin Ratio 0.9 L 07/23/24 10:32: POC Glucose 136 H I & O for Last 24 hours: Intake & Output 07/21/24 07/22/24 07/23/24 07/24/24 11:59 11:59 11:59 11:59 Intake Total 956 / 956 1329 / 1329 0 / 0 Output Total 2300 / 2300 2535 / 2685 1425 / 1425 Balance -1344 / -1344 -1206 / -1356 -1425 / -1425 Weight 170 lb 11.192 oz 170 lb 11.192 oz 163 lb 1 oz *Routine Abdominal Exam Abdominal: Present soft Comments: VAC dressing with lack of seal and some retained enteric fluid under the dressing. Progress Note: A&P Assessment and plan (1) Enterocutaneous fistula: Status: Acute (2) Ileus, postoperative: Status: Acute (3) Unintentional weight loss: Status: Acute (4) Abdominal wound dehiscence: Status: Acute (5) Nausea vomiting and diarrhea: Status: Acute Assessment and Plan Assessment and Plan for All Diagnoses:: Still awaiting bed at . Change VAC. Will see how he does without the NG tube.
--- NOTE | 2024-07-23 13:45 | EXP.ACUTE.PN ---
Subjective *Date: 07/23/24 *Time: 16:35 Interval history: Patient feeling well today. No fever, nausea, vomiting. loose BM today, still having flatus however. Still having significant output from his abdominal wound, ~200cc a day. Afebrile overnight. Stable on room air. Going outside daily. NG out this morning. Medical Exam Vital signs and Labs for Last 24 Hours: Vital Signs Temp Pulse Resp BP Pulse Ox O2 Del Method 07/23/24 12:00 97.7 F 63 14 123/60 96 Room Air 07/23/24 11:00 Room Air 07/23/24 09:00 Room Air 07/23/24 08:00 Room Air 07/23/24 07:22 97.7 F 66 14 114/81 96 Room Air 07/23/24 06:32 Room Air 07/23/24 05:00 Room Air 07/23/24 04:00 97.9 F 81 18 111/67 94 L Room Air 07/23/24 03:00 Room Air 07/23/24 01:00 Room Air 07/23/24 00:00 98.6 F 69 16 118/67 94 L Room Air 07/22/24 23:00 Room Air 07/22/24 21:00 Room Air 07/22/24 20:00 Room Air 07/22/24 20:00 99.2 F 73 18 117/68 95 Room Air 07/22/24 18:47 Room Air 07/22/24 17:00 Room Air 07/22/24 15:36 98.1 F 72 18 124/69 97 Room Air 07/22/24 15:00 Room Air Intake and Output 07/22/24 07/23/24 07/23/24 23:59 07:59 15:59 Intake Total 0 / 0 Output Total 250 / 2800 650 / 825 175 / 825 Balance -250 / -2180 -650 / -825 -175 / -825 Intake: Intake, Oral Amount 0 / 0 Output: Output, Urine Amount 150 / 1650 350 / 525 175 / 525 Output, Gastric Drainage Amount 100 / 1150 300 / 300 Right Nare 100 / 1150 300 / 300 Other: Number of Unmeasured Voids 0 Number of Bowel Movements 1 Weight 73.964 kg Patient Weight 07/23/24 23:59 Weight 73.964 kg Laboratory Results - last 24 hr 07/22/24 17:14: POC Glucose 106 07/22/24 22:05: POC Glucose 139 H 07/23/24 04:54: POC Glucose 116 H 07/23/24 05:55: WBC 9.2 D, RBC 3.43 L, Hgb 10.2 L, Hct 32.5 L, MCV 94.8 H, MCH 29.7, MCHC 31.4 L, RDW 14.1, Plt Count 563 H, MPV 8.2, Neut % (Auto) 79.8, Lymph % (Auto) 12.3, [place] % (Auto) 5.0, Eos % (Auto) 2.4, Baso % (Auto) 0.5, Neut # (Auto) 7.4, Lymph # (Auto) 1.1, [place] # (Auto) 0.5, Eos # (Auto) 0.2, Baso # (Auto) 0.1, Sodium 134 L, Potassium 4.2, Chloride 99, Carbon Dioxide 32 H, Anion Gap 7.2, BUN 20 D, Creatinine 0.60 L, Estimated Creat Clear 139, Estimated GFR 138, Est GFR ( Amer) 167, Glucose 134 H, Calcium 8.6, Phosphorus 5.3 H, Magnesium 2.0, Total Bilirubin 0.5, AST 47, ALT 68, Alkaline Phosphatase 102, Total Protein 6.6, Albumin 3.1 L, Globulin 3.5 H, Albumin/Globulin Ratio 0.9 L 07/23/24 10:32: POC Glucose 136 H I & O for Labs for Last 24 Hours: Intake & Output 07/20/24 07/21/24 07/22/24 07/23/24 23:59 23:59 23:59 23:59 Intake Total 2142 / 2142 1665 / 2285 620 / 620 0 / 0 Output Total 2830 / 2830 1860 / 2660 2375 / 2800 825 / 825 Balance -688 / -688 -195 / -375 -1755 / -2180 -825 / -825 Weight 77.428 kg 77.428 kg 77.428 kg 73.964 kg Constitutional: Present no acute distress, average body habitus and chronically ill appearing Head: Present normocephalic and normal inspection ENT: Present normal exam and normal oropharynx Neck: Present normal inspection and full ROM Respiratory: Present CTA bilaterally and normal respiratory effort; Absent stridor or crackles Cardiac: Present Reg Rate and Rhythm GI: Present soft, tenderness (Around surgical incision) and normal bowel sounds; Absent distention Comments:: Wound VAC place Rectal (male): Present deferred (male): Present deferred Extremities: Present normal inspection and full ROM Skin: Present intact and dry Neuro: Present alert, awake and oriented x 3 Assessment and Plan *Assessment and plan (1) Enterocutaneous fistula: Status: Acute Category: Medical Code(s): K63.2 - Fistula of intestine (2) Ileus, postoperative: Status: Acute Category: Medical Code(s): K91.89 - Other postprocedural complications and disorders of digestive system; K56.7 - Ileus, unspecified (3) Unintentional weight loss: Status: Acute Category: Medical Code(s): R63.4 - Abnormal weight loss (4) Abdominal wound dehiscence: Status: Acute Category: Medical Code(s): T81.30XA - Disruption of wound, unspecified, initial encounter (5) Abdominal wound dehiscence: Status: Acute Qualifiers: Encounter type: initial encounter Qualified Code(s): T81.30XA - Disruption of wound, unspecified, initial encounter Category: Medical Code(s): T81.30XA - Disruption of wound, unspecified, initial encounter (6) Nausea vomiting and diarrhea: Status: Acute Category: Medical Code(s): R11.2 - Nausea with vomiting, unspecified; R19.7 - Diarrhea, unspecified Plan 58-year-old male with PMHx of CAD s/p stent, open appendectomy, and recent bowel resection due to small bowel obstruction. Presented to surgery clinic with persistent nausea and vomiting, dehiscence of proximal portion of the surgical wound, and diarrhea. Patient received exploratory laparotomy small bowel resection with lysis of adhesions 06/17/24. Patient then discharged from hospital 06/24/2024. Patient had recurrent symptoms, and re-presented to hospital for evaluation. Patient underwent second small bowel resection with lysis of adhesions procedure by general surgery 07/05/2024. Patient suffered from wound dehiscence, and was taken back to operating room for washout procedure 07/12/2024. Of special note, surgery did not have to reenter peritoneal cavity during washout procedure 07/12/2024. Large wound VAC drainage noted 07/13 to 07/15.07/15 CT abdomen/pelvis showed high output cutaneous fistula, with large fluid collection. Patient subsequently awaiting transfer to for surgical evaluation once bed available. Discussed case with [facility], patient still on wait list, at the top of that list awaiting bed availability. Problems addressed as follows: High output enterocutaneous fistula: ? Discussed case with surgeon at [facility], continue wound VAC. Strongly recommends transfer. Awaiting transfer as above. - continue routine perioperative care, oxycodone p.o. for pain control. Monitor for toxicity, received 6 doses of opiates in the past 24 hours. Wound vac dressing changed today by nursing. -NG removed today. Monitor for increased output from fistula Postop ileus Transaminitis with Wound dehiscence, worsening - on TPN, monitoring with CBC, CMP, magnesium, calcium, phosphorus daily. Sodium 134, potassium 4.2, magnesium 2.0, phosphorus 5.3. Calcium 8.6. Kidney function normal with BUN 20, creatinine 0.6. No electrolyte replacement needed today. -LFTs normal - Zofran as needed every 8 hours for nausea Klebsiella and Citrobacter bacteremia Wound dehiscence suspicious for infection ? Has completed 2 rounds of antibiotics. No indication for antibiotics at this time. White count normal at 7.1. Hemoglobin normal at 10.1. Platelets 540. Continue to monitor for signs of infection. Clinically stable Chronic conditions CAD s/p stent, Hx of heart attack depression: Tolerating increased Prozac dose of 40 mg daily SCD for DVT ppx Full code FEN: sips and chips. restart TPN 07/15/2024 given inability to advance diet from liquids. Correct electrolytes as needed.
--- NOTE | 2024-07-23 13:49 | PC.NURSE ---
approx. 1245 pt's NG was removed per Allran. Pt tolerated well tip was intact.
[2024-07-23] MEDS: FAT EMULSIONS 250 ML 60 ML IV (14:41)
--- NOTE | 2024-07-23 15:03 | PC.NURSE ---
pt went outside this shift. wound VAC dressing changed. skin surrounding dressing appears red and irritated. pt has c/o of pain this shift and treated per JAN. TPN is currently running. pt remains on RA, tolerating well. NG tube removed this shift. pt is currently resting in bed, call light within reach no further requests at this time.
[2024-07-23 16:00] VITALS: BP 118/60; PULSE 66; RESP 17; TEMP 36.9; O2SAT 95
[2024-07-23 16:27] LABS: POC Glucose,Bedside 115 (70-110)
[2024-07-23] MEDS: OXYCODONE 5MG IMMEDIATE RELEASE TABLET 7.5 MG PO (17:47)
[2024-07-23 19:39] VITALS: BP 130/60; PULSE 71; RESP 16; TEMP 37.2; O2SAT 93
[2024-07-23] MEDS: MELATONIN 5MG TABLET 10 MG PO (20:48)
[2024-07-23] MEDS: HYDROMORPHONE 2MG/ML SYRINGE 0.5 MG IV (20:49)
[2024-07-23 22:24] LABS: POC Glucose,Bedside 134 (70-110)
[2024-07-24] VITALS: BP 126/66; PULSE 65; RESP 16; TEMP 37.1; O2SAT 96
[2024-07-24] MEDS: HYDROMORPHONE 2MG/ML SYRINGE 0.5 MG IV (01:59)
--- NOTE | 2024-07-24 02:55 | PC.NURSE ---
pt transported off floor air methods via stretcher @02:54
--- NOTE | 2024-07-24 07:33 | P.DS_ITS ---
General Admission date:: 06/29/24 Discharge date: 07/24/24 HPI HPI HPI: Mr. Up is a 58-year-old gentleman who presented to the ER and found to have complete bowel obstruction with peritonitis in 06/17/2024. Underwent emergent laparotomy with obstruction of distal jejunum, lysis of adhesions and bowel resection. Was discharged on 06/24 after being able to tolerate advancement of diet and having bowel movements. Presented to the ER over the weekend and then again to surgery clinic for follow-up today with recurrent nausea and vomiting. On the fourth found to have some superficial dehiscence of the upper aspect of his incision with serous drainage. Wound was evaluated today in surgery clinic and packed, concern for seroma, low concern for infection. Continuing to have bilious emesis however and diarrhea daily. Due to the fact that he is unable to keep anything down, continuing to have GI symptoms, medicine was consulted for admission and further management. CT scan obtained on 06/28 in the ER that revealed distended loops of bowel with air-fluid levels. Concern for ileus. On arrival to the floor, patient denies any chest pain or shortness of breath. Reports bilious emesis. States he has been having loose stools multiple times a day. States has not been able to keep anything down for the past 2 to 3 days. Denies any blood in his vomit or stool. at bedside. Reports mild pain with incision. No fever or chills. Hospital Course Hospital Course Hospital Course: 58-year-old male with PMHx of CAD s/p stent, open appendectomy, and recent bowel resection due to small bowel obstruction. Presented to surgery clinic with persistent nausea and vomiting, dehiscence of proximal portion of the surgical wound, and diarrhea. Patient received exploratory laparotomy small bowel resection with lysis of adhesions 06/17/24. Patient then discharged from hospital 06/24/2024. Patient had recurrent symptoms, and re-presented to hospital for evaluation. Patient underwent second small bowel resection with lysis of adhesions procedure by general surgery 07/05/2024. Patient suffered from wound dehiscence, and was taken back to operating room for washout procedure 07/12/2024. Of special note, surgery did not have to reenter peritoneal cavity during washout procedure 07/12/2024. Large wound VAC drainage noted 07/13 to 07/15.07/15 CT abdomen/pelvis showed high output cutaneous fistula, with large fluid collection. Patient accepted to . Transferred early this morning for higher level of care and further management. Problems addressed as follows: High output enterocutaneous fistula: ? Discussed case with surgeon at [facility], continue wound VAC. Recommend transfer. Continue routine perioperative care, oxycodone p.o. for pain control. Monitor for toxicity, received 6 doses of opiates in the past 24 hours. Wound vac dressing changed 07/23/2024 by nursing. NG removed 07/23. Stable output from fistula. Postop ileus Transaminitis with Wound dehiscence, worsening - on TPN, monitoring with CBC, CMP, magnesium, calcium, phosphorus daily. Sodium 134, potassium 4.2, magnesium 2.0, phosphorus 5.3. Calcium 8.6. Kidney function normal with BUN 20, creatinine 0.6. No electrolyte replacement needed today. LFTs normal. Zofran as needed every 8 hours for nausea Klebsiella and Citrobacter bacteremia Wound dehiscence suspicious for infection ? Has completed 2 rounds of antibiotics. No indication for antibiotics at this time. White count normal at 7.1. Hemoglobin normal at 10.1. Platelets 540. Continue to monitor for signs of infection. Clinically stable Chronic conditions CAD s/p stent, Hx of heart attack depression: Tolerating increased Prozac dose of 40 mg daily TPN 07/15/2024 given inability to advance diet from liquids. Correct electrolytes as needed. Total time spent on discharge 32 minutes in counseling, documentation, chart review, and direct care with patient. Exam Data for Last 24 hours Vital signs and Labs for Last 24 Hours: Temp Pulse Resp BP Pulse Ox O2 Del Method O2 Flow Rate 98.8 F 65 16 126/66 96 Room Air 2.5 07/24/24 00:00 07/24/24 00:00 07/24/24 00:00 07/24/24 00:00 07/24/24 00:00 07/24/24 01:00 07/09/24 08:00 FiO2 2 07/06/24 14:00 Laboratory Results - last 24 hr 07/23/24 05:55: Sodium 134 L, Potassium 4.2, Chloride 99, Carbon Dioxide 32 H, Anion Gap 7.2, BUN 20 D, Creatinine 0.60 L, Estimated Creat Clear 139, Estimated GFR 138, Est GFR ( Amer) 167, Glucose 134 H, Calcium 8.6, Phosphorus 5.3 H, Magnesium 2.0, Total Bilirubin 0.5, AST 47, ALT 68, Alkaline Phosphatase 102, Total Protein 6.6, Albumin 3.1 L, Globulin 3.5 H, Albumin/Globulin Ratio 0.9 L 07/23/24 10:32: POC Glucose 136 H 07/23/24 16:19: POC Glucose 115 H 07/23/24 22:17: POC Glucose 134 H I & O for Last 24 hours: Intake & Output 07/21/24 07/22/24 07/23/24 07/24/24 23:59 23:59 23:59 23:59 Intake Total 1665 / 2285 620 / 620 1800 / 1800 Output Total 1860 / 2660 2375 / 2800 1300 / 1850 550 / 550 Balance -195 / -375 -1755 / -2180 500 / -50 -550 / -550 Weight 77.428 kg 77.428 kg 73.964 kg Constitutional Constitutional: no acute distress, average body habitus, chronically ill appearing and cooperative *Routine HEENT Exam Head: Present normocephalic Eye: Present EOMI and PERRL ENT: Present mucous membranes moist *Routine Neck Exam Neck: Present supple; Absent lymphadenopathy *Routine Respiratory Exam Respiratory: Present CTA bilaterally *Routine Cardiovascular Exam Cardiovascular: Present RRR *Routine Abdominal Exam Abdominal: Present soft, normoactive bowel sounds and tenderness (Minimal, around the incision site) Comments: Wound VAC in place *Routine Rectal Exam Patient deferred: visual exam *Routine Exam Patient deferred: penile exam *Routine Extremities Exam Extremities: Absent cyanosis, clubbing or edema *Routine Skin Exam Skin: Present warm; Absent rash *Routine Neurological Exam Neurological: Present alert, oriented X3 and moving all extremities; Absent altered mental status Results Data Completed and Pending Labs on day of discharge: Labs from last 24 hours 07/23/24 07/23/24 07/23/24 22:17 16:19 10:32 Sodium Potassium Chloride Carbon Dioxide Anion Gap BUN Creatinine Estimated Creat Clear Estimated GFR Est GFR ( Amer) Glucose POC Glucose 134 H 115 H 136 H Calcium Phosphorus Magnesium Total Bilirubin AST ALT Alkaline Phosphatase Total Protein Albumin Globulin Albumin/Globulin Ratio 07/23/24 05:55 Sodium 134 L Potassium 4.2 Chloride 99 Carbon Dioxide 32 H Anion Gap 7.2 BUN 20 D Creatinine 0.60 L Estimated Creat Clear 139 Estimated GFR 138 Est GFR ( Amer) 167 Glucose 134 H POC Glucose Calcium 8.6 Phosphorus 5.3 H Magnesium 2.0 Total Bilirubin 0.5 AST 47 ALT 68 Alkaline Phosphatase 102 Total Protein 6.6 Albumin 3.1 L Globulin 3.5 H Albumin/Globulin Ratio 0.9 L DS: Diagnosis Discharge Diagnosis (1) Enterocutaneous fistula: Status: Acute Code(s): K63.2 - Fistula of intestine (2) Ileus, postoperative: Status: Acute Code(s): K91.89 - Other postprocedural complications and disorders of digestive system; K56.7 - Ileus, unspecified (3) Unintentional weight loss: Status: Acute Code(s): R63.4 - Abnormal weight loss (4) Abdominal wound dehiscence: Status: Acute Code(s): T81.30XA - Disruption of wound, unspecified, initial encounter (5) Nausea vomiting and diarrhea: Status: Acute Code(s): R11.2 - Nausea with vomiting, unspecified; R19.7 - Diarrhea, unspecified Meds Home Medications and Allergies Home Medications ?Medication ?Instructions ?Recorded ?Confirmed ?Type atorvastatin 40 mg tablet 40 mg PO HS #90 tabs 01/07/24 06/29/24 Rx bupropion HCl 150 mg tablet,12 hr 150 mg PO BID #180 ea 01/07/24 06/29/24 Rx sustained-release (Wellbutrin SR) clopidogrel 75 mg tablet 75 mg PO DAILY #90 tabs 01/07/24 06/29/24 Rx fluoxetine 20 mg capsule 20 mg PO DAILY 06/17/24 06/29/24 History acetaminophen 325 mg tablet 650 mg (2 x 325 mg) PO Q6HP PRN 06/24/24 06/29/24 Rx Fever Or Mild Pain (1-3) #0 tabs ondansetron 4 mg disintegrating 4 mg PO Q6HP PRN nausea and 06/29/24 06/29/24 History tablet vomiting oxycodone-acetaminophen 5 mg-325 1 tab PO Q6HP PRN Moderate Pain 06/29/24 06/29/24 History mg tablet (Percocet) (Scale Score 5-6) promethazine 25 mg tablet 25 mg PO Q6HP PRN nausea and 06/29/24 06/29/24 History vomiting sildenafil 100 mg tablet (Viagra) 100 mg PO NEEDED PRN sexual 06/29/24 06/29/24 History activity New Prescriptions to Start Prescriptions: Allergies Allergy/AdvReac Type Severity Reaction Status Date / Time morphine AdvReac Vomiting Verified 07/09/24 19:16 Discharge Plan Disposition Patient Disposition: Xfer Short-Term Hosp Condition: Fair Discharge Order Discharge Orders: Discharge Order (Routine); Ordered 07/24/24 Ordered By: Rashaad Choi Follow up Plan Prescriptions/Medication Reconciliation: No Action atorvastatin 40 mg tablet 40 mg PO HS Qty: 90 3RF clopidogrel 75 mg tablet 75 mg PO DAILY Qty: 90 3RF bupropion HCl [Wellbutrin SR] 150 mg tablet sustained-release 12 hr 150 mg PO BID Qty: 180 3RF fluoxetine 20 mg capsule 20 mg PO DAILY acetaminophen 325 mg Tablet 650 mg PO Q6HP PRN (Reason: Fever Or Mild Pain (1-3)) Qty: 0 0RF 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 promethazine 25 mg tablet 25 mg PO Q6HP PRN (Reason: nausea and vomiting) sildenafil [Viagra] 100 mg tablet 100 mg PO NEEDED PRN (Reason: sexual activity) Rx Instructions: administer 30 minutes to 4 hours before activity oxycodone-acetaminophen [Percocet] 5-325 mg tablet 1 tab PO Q6HP PRN (Reason: Moderate Pain (Scale Score 5-6)) ondansetron 4 mg tablet,disintegrating 4 mg PO Q6HP PRN (Reason: nausea and vomiting) Problem Reconciliation Problems Reviewed?: Yes Patient Discharge Instructions ACTIVITY: Continue current activity DIET: continue same diet Stand Alone Forms: Transfer Record Patient Instructions: DI for Small Bowel Obstruction, DI for Surgical Site Infection, Peripherally Inserted Central Catheter Infections, Catheter- associated Urinary Tract Infection, DI for Bacteremia-Adult Print Language: Kyrgyz Providers Primary Care Provider: Ceasar Myles Admit Provider: Rashaad Choi Attending Provider: Rashaad Choi
== END 2024-07-24 14:51 | disposition short-term general hospital (02) | DRG 330 ==
PROVIDERS: Internal Medicine; Surgery; Admitting Provider Internal Medicine Adolescent Medicine; PCP Family Medicine; Visit Provider Internal Medicine Adolescent Medicine
PROC: 0DB80ZZ Excision of Small Intestine, Open Approach (ICD-10-PCS; CPT 49000; principal; 2024-07-05 13:45)
PROC: 0HD7XZZ Extraction of Abdomen Skin, External Approach (ICD-10-PCS; principal; 2024-07-12 14:00)
DX: K56.52 Intestinal adhesions [bands] with complete obstruction (principal); I25.10 Atherosclerotic heart disease of native coronary artery without angina pectoris; K91.89 Other postprocedural complications and disorders of digestive system; R78.81 Bacteremia; K63.2 Fistula of intestine; K56.691 Other complete intestinal obstruction; T81.31XA Disruption of external operation (surgical) wound, not elsewhere classified, initial encounter; I25.2 Old myocardial infarction; Z79.899 Other long term (current) drug therapy; Z95.5 Presence of coronary angioplasty implant and graft; F32.9 Major depressive disorder, single episode, unspecified; B96.1 Klebsiella pneumoniae [K. pneumoniae] as the cause of diseases classified elsewhere; B96.89 Other specified bacterial agents as the cause of diseases classified elsewhere; Y83.2 Surgical operation with anastomosis, bypass or graft as the cause of abnormal reaction of the patient, or of later complication, without mention of misadventure at the time of the procedure; R74.01 Elevation of levels of liver transaminase levels
CPT/HCPCS: 36410; 36415; 36569; 71045; 74018; 74021; 74176; 74177; 74178; 74250; 80048; 80053; 80061; 80202; 81001; 82465; 82962; 83605; 83690; 83735; 84100; 84478; 85007; 85025; 85027; 85610; 85730; 87040; 87070; 87075; 87077; 87186; 87205; 87507; 94761; 97110; 97116; 97162; 97165; 97530; J3490; C1751; J0131; J0295; J0330; J1100; J1170; J1335; J1642; J1650; J1885; J1940; J2250; J2270; J2405; J2543; J2765; J3010; J3475; J3480; J7030; J7120; Q9963; Q9967

== ENCOUNTER 2024-08-23 10:26 | Outpatient (CLI) | payer MEDICAID, SELFPAY | END 2024-08-23 23:59 | disposition home or self-care (01) | LOC: LAB.DROPOF 08-24 10:26 | PROVIDERS: PCP Family Medicine; Visit Provider Family Medicine | DX: T81.30XA Disruption of wound, unspecified, initial encounter (principal) | CPT/HCPCS: 87070; 87077; 87186; 87205 ==

== ENCOUNTER 2024-09-13 08:40 | Outpatient (CLI) | payer MEDICAID, SELFPAY ==
--- NOTE | 2024-09-13 08:41 | CT_ITS ---
PROCEDURE INFORMATION: Exam: CT Abdomen And Pelvis With Contrast Exam date and time: 09/13/2024 9:43 AM Age: 59 years old Clinical indication: Abdominal pain; Generalized; Additional info: Abdominal pain and known fistula TECHNIQUE: Imaging protocol: Computed tomography of the abdomen and pelvis with contrast. Radiation optimization: All CT scans at this facility use at least one of these dose optimization techniques: automated exposure control; mA and/or kV adjustment per patient size (includes targeted exams where dose is matched to clinical indication); or iterative reconstruction. Contrast material: ISOVUE; Contrast volume: 75 ml; Contrast route: IV; COMPARISON: CT ABDOMEN PELVIS W CON 07/15/2024 2:26 PM FINDINGS: Lungs: Calcified granulomas in the lung bases. Liver: Tiny calcified granulomas in the liver. Liver otherwise unremarkable. Gallbladder and biliary ducts: Stable mild intra extrahepatic biliary dilatation. No appreciable choledocholithiasis. Smooth tapering of the CBD to the sphincter. Pancreas: Normal. No ductal dilation. Spleen: Normal. No splenomegaly. Adrenal glands: Stable left adrenal gland lesion measuring 2.3 x 2.3 cm axial. Right adrenal gland is unremarkable. Kidneys and ureters: No renal or ureteral calculi or obstruction bilaterally. Stomach and bowel: No bowel obstruction or acute inflammation. There is persistent mild dilatation of distal small bowel adjacent to the enterocolic anastomosis in the right lower quadrant. Appendix: No evidence of appendicitis. Intraperitoneal space: No appreciable pneumoperitoneum, ascites, or drainable abscess. Vasculature: Unremarkable. No abdominal aortic aneurysm. Lymph nodes: Unremarkable. No enlarged lymph nodes. Urinary bladder: Unremarkable as visualized. Reproductive: Mild circumferential bladder wall thickening, a component of which is due to prostatomegaly. Bones/joints: Bones and soft tissues are otherwise unremarkable. Soft tissues: Focal mild inflammatory change of the soft tissues of the umbilicus, with persistent focal dehiscence at that region and apparent enterocutaneous fistula (not well seen due to lack of enteric contrast). No distinct soft tissue gas or drainable abscess. IMPRESSION: 1. No bowel obstruction or acute inflammation. 2. Focal mild inflammatory change of the soft tissues of the umbilicus, with persistent focal dehiscence at that region and apparent enterocutaneous fistula (not well seen due to lack of enteric contrast). No distinct soft tissue gas or drainable abscess. 3. Mild circumferential bladder wall thickening, a component of which is due to prostatomegaly. Recommend correlation if there is concern for cystitis.
[2024-09-13 09:06] LABS: Blood Urea Nitrogen 12 mg/dl (9-20); Estimated Glomerular Filt Rate 115 ml/min (>60); GFR (African American) 139 ML/MIN (>60)
[2024-09-13] MEDS: IOPAMIDOL-370 (76%);100ML BOTTLE 75 ML IV (09:55)
[2024-09-13] MEDS: SODIUM CHLORIDE 0.9% 10ML SYR (RAD ONLY) 10 ML IV (09:55)
== END 2024-09-13 23:59 | disposition home or self-care (01) ==
LOC: RAD 08:41
PROVIDERS: PCP Family Medicine; Visit Provider Family Medicine
DX: R10.9 Unspecified abdominal pain (principal); K63.2 Fistula of intestine
CPT/HCPCS: 36415; 74177; 82565; 84520; Q9967

== ENCOUNTER 2024-09-20 16:10 | Outpatient (CLI) | payer MEDICAID, SELFPAY ==
[2024-09-20 18:25] LABS: Basophils % 0.3 % (0.1-2.0); Eosinophils # 0.2 K/mm3 (0.0-0.4); Eosinophils % 2.5 % (0.1-12.0); Hematocrit 40.4 % (42.0-52.0); Hemoglobin 13.7 g/dL (14.1-18.0); Lymphocytes % 16.5 % (10-50); Mean Corpuscular HGB Conc 33.9 g/dL (31.8-35.4); Mean Corpuscular Hemoglobin 30.6 pg (27.0-31.2); Mean Corpuscular Volume 90.3 fl (80-94); Mean Platelet Volume 8.2 fl (7.4-10.4); Monocytes # 0.2 K/mm3 (0.1-1.0); Monocytes % 3.1 % (1.7-9.3); Neutrophils # 4.8 K/mm3 (1.8-7.8); Neutrophils % 77.6 % (37.0-80.0); Platelet Count 216 K/mm3 (142-424); Red Blood Count 4.47 M/mm3 (4.60-6.20); Red Cell Distribution Width 14.6 % (11.5-17.5); White Blood Count 6.2 K/mm3 (4.8-10.8)
[2024-09-20 18:57] LABS: Albumin/Globulin Ratio 1.5 (1.1-1.8); Alkaline Phosphatase 134 U/L (38-126); Anion Gap 20.7 mEq/L (5-15); Aspartate Amino Transferase 440 U/L (17-59); Bilirubin,Total 1.1 mg/dl (0.2-1.3); Blood Urea Nitrogen 17 mg/dl (9-20); Calcium 8.9 mg/dl (8.4-10.2); Carbon Dioxide 22 mmol/L (22.0-30.0); Chloride 100 mmol/L (98-107); Estimated Glomerular Filt Rate 115 ml/min (>60); GFR (African American) 139 ML/MIN (>60); Globulin 2.6 g/dL (1.3-3.2); Glucose 116 mg/dl (74-100); Potassium 3.7 mmoL/L (3.5-5.1); Sodium 139 mmol/L (136-145); Total Protein,Serum 6.6 g/dl (6.3-8.2)
[2024-09-20 19:04] LABS: Alanine Aminotransferase 829 U/L (12-78)
[2024-09-20 19:28] LABS: Prostate Specific Ag Screen 0.7 ng/ml (0.0-4.0)
== END 2024-09-20 23:59 | disposition home or self-care (01) ==
LOC: LAB.DROPOF 09-21 15:13
PROVIDERS: PCP Family Medicine; Visit Provider Family Medicine
DX: Z12.5 Encounter for screening for malignant neoplasm of prostate (principal); I25.10 Atherosclerotic heart disease of native coronary artery without angina pectoris; K63.2 Fistula of intestine
CPT/HCPCS: 80053; 85025; G0103

== ENCOUNTER 2024-09-22 13:34 | Emergency (ER) | payer MEDICAID, SELFPAY ==
[2024-09-22 13:35] VITALS: BP 163/90; PULSE 75; RESP 18; TEMP 36.8; O2SAT 97; BMI 23.6
[2024-09-22 13:51] VITALS: BP 163/90; PULSE 70; O2SAT 97
--- NOTE | 2024-09-22 14:06 | ED_ITS ---
<Statement entered by Patti Briggs DO - 09/23/24 00:59> I was consulted by the AD[facility], and we discussed the complexity of the problems being addressed. I approved the treatment and management plan for this patient's care in the emergency department, thus performing a substantive portion of the medical decision making. Patti Briggs DO Discharge Plan Disposition Patient Disposition: Home, Self-Care Condition: Good Prescriptions Prescriptions: No Action atorvastatin 40 mg tablet 40 mg PO HS Qty: 90 3RF clopidogrel 75 mg tablet 75 mg PO DAILY Qty: 90 3RF bupropion HCl [Wellbutrin SR] 150 mg tablet sustained-release 12 hr 150 mg PO BID Qty: 180 3RF clindamycin HCl 150 mg capsule 150 mg PO Q8H Qty: 30 0RF mupirocin 2 % ointment 1 applic topical TID Qty: 22 5RF cephalexin 500 mg capsule 500 mg PO Q8H 10 Days Qty: 30 0RF ondansetron 4 mg tablet,disintegrating 4 mg PO Q6HP PRN (Reason: nausea and vomiting) Qty: 60 3RF fluoxetine 20 mg capsule 20 mg PO DAILY Qty: 30 2RF zolpidem [Ambien] 5 mg tablet 5 mg PO HS PRN (Reason: sleep) Qty: 30 1RF Rx Instructions: may repeat once if no response in 30-60 minutes oxycodone 5 mg tablet See Rx Instructions PO Q6H PRN (Reason: pain) Qty: 60 0RF Rx Instructions: one or two orally every 6 hours PRN; acetaminophen 325 mg Tablet 650 mg PO Q6HP PRN (Reason: Fever Or Mild Pain (1-3)) Qty: 0 0RF 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 Instructions Additional Instructions/Restrictions: Follow-up with your PCP within 48 hours for recheck of your liver enzymes. Avoid any additional Tylenol for now. Consider ibuprofen for symptomatic treatment. I am also referring you to gastroenterology for further review and possible workup of your elevated liver enzymes. Return to ER for any worsening signs or symptoms as needed. Clinical Impressions Clinical Impression: Transaminitis Print Language Print Language: Lao Discharge ED Provider: Patti Briggs General Adult HPI <SAMY Kay - Last Filed: 09/22/24 16:20> General Chief complaint: Recheck/Abnormal Lab/Rx Stated complaint: sent by doctor, liver numbers abnormal Time Seen by Provider: 09/22/24 14:06 Mode of Arrival: Ambulatory Source of Information: Patient Limitations: No Limitations Description of Symptoms (Recalled from ER Triage Doc. by RN): pt was seen at pcp office on friday for regular check up and called today told to go to ER for abnormal liver enzymes, pcp thinks its due to over use of tylenol, pt has had several abdominal surgeries done here in the past 6 months History of Present Illness HPI narrative: Patient presents for evaluation of elevated liver enzymes. Patient was seen in his PCPs office on Friday for follow-up of a enterocutaneous fistula and routine labs were done. They were reportedly elevated in regards to his transaminases. Patient himself denies pain chest pain shortness of breath chills hemoptysis hematochezia melena hematemesis nausea vomiting diarrhea but does report that he has had a subjective fever and last night it he reported it was 101. He does report that he has had a upper respiratory tract infection with some drainage all this week. She does take oxycodone 03/26/2025 every 4 hours as needed for pain and since Friday has been taking approximately 2 g of Tylenol for his subjective fevers. Certainly sounds well under the threshold of 4 g a day and certainly not for an extended period of time making Tylenol toxicity less likely. Related Data Home Medications ?Medication ?Instructions ?Recorded ?Confirmed promethazine 25 mg tablet 25 mg PO Q6HP PRN nausea and 06/29/24 09/20/24 vomiting sildenafil 100 mg tablet (Viagra) 100 mg PO NEEDED PRN sexual 06/29/24 09/20/24 activity Previous Rx's ?Medication ?Instructions ?Recorded atorvastatin 40 mg tablet 40 mg PO HS #90 tabs 01/07/24 bupropion HCl 150 mg tablet,12 hr 150 mg PO BID #180 ea 01/07/24 sustained-release (Wellbutrin SR) clopidogrel 75 mg tablet 75 mg PO DAILY #90 tabs 01/07/24 acetaminophen 325 mg tablet 650 mg (2 x 325 mg) PO Q6HP PRN 06/24/24 Fever Or Mild Pain (1-3) #0 tabs fluoxetine 20 mg capsule 20 mg PO DAILY #30 caps 08/20/24 clindamycin HCl 150 mg capsule 150 mg PO Q8H #30 caps 08/23/24 mupirocin 2 % topical ointment 1 applic topical TID #22 grams 08/23/24 zolpidem 5 mg tablet (Ambien) 5 mg PO HS PRN sleep #30 tabs 09/17/24 cephalexin 500 mg capsule 500 mg PO Q8H 10 days #30 caps 09/20/24 ondansetron 4 mg disintegrating 4 mg PO Q6HP PRN nausea and 09/20/24 tablet vomiting #60 tabs oxycodone 5 mg tablet See Rx Instructions PO Q6H PRN 09/22/24 pain #60 tabs Allergies Allergy/AdvReac Type Severity Reaction Status Date / Time morphine AdvReac Vomiting Verified 09/20/24 15:23 PFSH <SAMY Kay - Last Filed: 09/22/24 16:20> PFS Disclaimer: The information contained in this section may have been updated after the patient was seen, as this information can be updated by other users. Medical History Bowel obstruction History of heart attack Heart attack Depression Erosive osteoarthritis of multiple sites Surgical History History of bowel resection S/P exploratory laparotomy Hx of appendectomy Family History Other Diabetes Social History Smoking Status: Never smoker alcohol intake: current alcohol intake frequency: holidays/special occasions only substance use type: denies use current occupational status: employed Travel in the last 8 weeks: None household members: none housing: apartment Other Medical History Have you received the Flu Vaccine for this season: No Have you received the Pneumonia Vaccine: No <ASMY Kay - Last Filed: 09/22/24 16:20> ROS Obtained: Yes Systems reviewed as appropriate & no additional complaints except as documented Physical Exam <SAMY Kay - Last Filed: 09/22/24 16:20> General General appearance: alert and in no apparent distress Respiratory Respiratory exam: Present normal lung sounds bilaterally Cardiovascular Cardiovascular exam: Present regular rate Neurological Exam Neurological exam: Present alert and oriented X3 Medical Decision Making <SAMY Kay - Last Filed: 09/22/24 16:20> Medical Records Medical records reviewed: Yes I reviewed the patient's medical records. Screening: Per USPSTF and CDC recommendations, given the prevalence of disease in our region, it is our hospital?s policy to screen for HIV and viral Hepatitis for all patients aged 18 and over and those with ongoing risk factors. [place] Inquiry Pt receiving controlled substance: No Vital Signs: 09/22/24 13:35 09/22/24 13:51 09/22/24 14:49 Temperature 98.2 F Temperature Source Oral Pulse Rate 70 60 Pulse Rate [Right Radial] 75 Respiratory Rate 18 Blood Pressure 163/90 H 123/73 Blood Pressure [Right Arm] 163/90 H Blood Pressure Mean 104 89 Blood Pressure Mean [Right Arm] 114 Blood Pressure Source Blood Pressure Position 02 Sat by Pulse Oximetry 97 97 97 Oxygen Delivery Method Room Air Room Air 09/22/24 15:00 09/22/24 15:30 09/22/24 16:20 Temperature 98.0 F Temperature Source Oral Pulse Rate 60 57 L 58 L Pulse Rate [Right Radial] Respiratory Rate 18 Blood Pressure 134/80 140/71 145/69 H Blood Pressure [Right Arm] Blood Pressure Mean 98 99 Blood Pressure Mean [Right Arm] Blood Pressure Source Automatic Cuff Blood Pressure Position Sitting 02 Sat by Pulse Oximetry 96 98 Oxygen Delivery Method Room Air Lab Data Lab results reviewed: Yes I reviewed the patient's lab results. Lab Results 09/22/24 14:31: Urine Color Yellow, Urine Appearance Clear, Urine pH 6.0, Ur Specific Bradley >= 1.030, Urine Protein Negative, Urine Glucose (UA) Negative, Urine Ketones Negative, Urine Blood Negative, Urine Nitrate Negative, Urine Bilirubin Negative, Urine Urobilinogen 0.2, Ur Leukocyte Esterase Negative, Urine RBC None, Urine WBC Occasional, Ur Squamous Epith Cells Occasional, Urine Bacteria Trace 09/22/24 14:45: WBC 4.0 L D, RBC 4.52 L, Hgb 13.8 L, Hct 41.3 L, MCV 91.3, MCH 30.5, MCHC 33.4, RDW 14.6, Plt Count 215, MPV 7.8, Neut % (Auto) 60.2, Lymph % (Auto) 31.4, Carver % (Auto) 5.7, Eos % (Auto) 2.0, Baso % (Auto) 0.6, Neut # (Auto) 2.4, Lymph # (Auto) 1.3, Carver # (Auto) 0.2, Eos # (Auto) 0.1, Baso # (Auto) 0.0, PT 10.4, INR 0.92, APTT 27.9, Sodium 137, Potassium 3.8, Chloride 103, Carbon Dioxide 25, Anion Gap 12.8, BUN 10 D, Creatinine 0.60 L, Estimated Creat Clear 134, Estimated GFR 137, Est GFR ( Amer) 166, Glucose 100, Calcium 9.2, Total Bilirubin 0.7, AST 69 H D, ALT 345 H*, Alkaline Phosphatase 128 H, Total Protein 7.6, Albumin 4.3, Globulin 3.3 H, Albumin/Globulin Ratio 1.3, Lipase 41, Acetaminophen < 10 L, Monoscreen Negative 09/22/24 14:45 09/22/24 14:45 Orders (Tests/Meds): ED MEDICATIONS Discontinued Medications Generic Name Dose Route Start Last Admin Trade Name Freq PRN Reason Stop Dose Admin Acetylcysteine 10,160 mg 09/22/24 14:09 09/22/24 15:43 Acetylcysteine 20% 30ml Bottle 140 mg/kg (03008 mg) 09/22/24 14:10 Not Given PO ONCE ONE Sodium Chloride 1,000 mls @ 999 mls/hr 09/22/24 14:09 09/22/24 15:23 Sod Chlor 0.9% 1000ml Bag IV 09/22/24 15:09 999 mls/hr .Q1H1M ONE Administration ORDERS Category Date Time Status Acetaminophen Stat Lab 09/22/24 14:45 Completed CBC w/Auto Diff [Complete Blood Count Auto Diff] Stat Lab 09/22/24 14:45 Completed CMP [Comprehensive Metabolic Panel] Stat Lab 09/22/24 14:45 Completed Hepatitis Panel Stat Lab 09/22/24 15:35 Received INR [Prothrombin Time INR] Stat Lab 09/22/24 14:45 Completed Lipase Stat Lab 09/22/24 14:45 Completed Monoscreen (Rapid) Stat Lab 09/22/24 14:45 Completed PTT [Activated Partial Thrombo Time] Stat Lab 09/22/24 14:45 Completed UA [Urinalysis and Microscopic] Stat Lab 09/22/24 14:31 Completed Medical Decision Narrative: In summary patient is a 59-year-old male who presents to the emergency department for evaluation of elevated liver enzymes. Patient is hemodynamically stable upon arrival, afebrile currently. Physical exam is remarkable for mild abdominal tenderness around the known enterocutaneous fistula site however it appears to be healing well with no evidence of superficial or deep infection only serous drainage no foul odor no fluctuance. There is no right upper quadrant tenderness to palpation bowel sounds normal active. CT scan from 09/13/2024 personally reviewed and interpreted and appears to be stable with no acute changes noted. Differential diagnosis includes acetaminophen toxicity versus hepatitis versus other toxicity etc. Initial workup will be conducted with hematologic labs acetaminophen level UA. Initial interventions include crystalloid bolus NAC loading dose. Initial workup reviewed by me are very reassuring as his transaminitis is actually significantly reduced and his acetaminophen level was less than 10 indicating that there is no need for acetaminophen antidote.. Given this patient is appropriate for discharge with close follow-up with his PCP as that his hepatitis panel is still not back and referred to GI for further review and recommendations. <Sung Shook MD - Last Filed: 09/23/24 07:48> Vital Signs: 09/22/24 13:35 09/22/24 13:51 09/22/24 14:49 Temperature 98.2 F Temperature Source Oral Pulse Rate 70 60 Pulse Rate [Right Radial] 75 Respiratory Rate 18 Blood Pressure 163/90 H 123/73 Blood Pressure [Right Arm] 163/90 H Blood Pressure Mean 104 89 Blood Pressure Mean [Right Arm] 114 Blood Pressure Source Blood Pressure Position 02 Sat by Pulse Oximetry 97 97 97 Oxygen Delivery Method Room Air Room Air 09/22/24 15:00 09/22/24 15:30 09/22/24 16:20 Temperature 98.0 F Temperature Source Oral Pulse Rate 60 57 L 58 L Pulse Rate [Right Radial] Respiratory Rate 18 Blood Pressure 134/80 140/71 145/69 H Blood Pressure [Right Arm] Blood Pressure Mean 98 99 Blood Pressure Mean [Right Arm] Blood Pressure Source Automatic Cuff Blood Pressure Position Sitting 02 Sat by Pulse Oximetry 96 98 Oxygen Delivery Method Room Air Lab Data Lab Results 09/22/24 14:31: Urine Color Yellow, Urine Appearance Clear, Urine pH 6.0, Ur Specific Bradley >= 1.030, Urine Protein Negative, Urine Glucose (UA) Negative, Urine Ketones Negative, Urine Blood Negative, Urine Nitrate Negative, Urine Bilirubin Negative, Urine Urobilinogen 0.2, Ur Leukocyte Esterase Negative, Urine RBC None, Urine WBC Occasional, Ur Squamous Epith Cells Occasional, Urine Bacteria Trace 09/22/24 14:45: WBC 4.0 L D, RBC 4.52 L, Hgb 13.8 L, Hct 41.3 L, MCV 91.3, MCH 30.5, MCHC 33.4, RDW 14.6, Plt Count 215, MPV 7.8, Neut % (Auto) 60.2, Lymph % (Auto) 31.4, Carver % (Auto) 5.7, Eos % (Auto) 2.0, Baso % (Auto) 0.6, Neut # (Auto) 2.4, Lymph # (Auto) 1.3, Carver # (Auto) 0.2, Eos # (Auto) 0.1, Baso # (Auto) 0.0, PT 10.4, INR 0.92, APTT 27.9, Sodium 137, Potassium 3.8, Chloride 103, Carbon Dioxide 25, Anion Gap 12.8, BUN 10 D, Creatinine 0.60 L, Estimated Creat Clear 134, Estimated GFR 137, Est GFR ( Amer) 166, Glucose 100, Calcium 9.2, Total Bilirubin 0.7, AST 69 H D, ALT 345 H*, Alkaline Phosphatase 128 H, Total Protein 7.6, Albumin 4.3, Globulin 3.3 H, Albumin/Globulin Ratio 1.3, Lipase 41, Acetaminophen < 10 L, Monoscreen Negative Orders (Tests/Meds): ED MEDICATIONS Discontinued Medications Generic Name Dose Route Start Last Admin Trade Name Freq PRN Reason Stop Dose Admin Acetylcysteine 10,160 mg 09/22/24 14:09 09/22/24 15:43 Acetylcysteine 20% 30ml Bottle 140 mg/kg (03524 mg) 09/22/24 14:10 Not Given PO ONCE ONE Sodium Chloride 1,000 mls @ 999 mls/hr 09/22/24 14:09 09/22/24 15:23 Sod Chlor 0.9% 1000ml Bag IV 09/22/24 15:09 999 mls/hr .Q1H1M ONE Administration ORDERS Category Date Time Status Acetaminophen Stat Lab 09/22/24 14:45 Completed CBC w/Auto Diff [Complete Blood Count Auto Diff] Stat Lab 09/22/24 14:45 Completed CMP [Comprehensive Metabolic Panel] Stat Lab 09/22/24 14:45 Completed Hepatitis Panel Stat Lab 09/22/24 15:35 Received INR [Prothrombin Time INR] Stat Lab 09/22/24 14:45 Completed Lipase Stat Lab 09/22/24 14:45 Completed Monoscreen (Rapid) Stat Lab 09/22/24 14:45 Completed PTT [Activated Partial Thrombo Time] Stat Lab 09/22/24 14:45 Completed UA [Urinalysis and Microscopic] Stat Lab 09/22/24 14:31 Completed Medical Decision Narrative: In summary patient is a 59-year-old male who presents to the emergency department for evaluation of elevated liver enzymes. Patient is hemodynamically stable upon arrival, afebrile currently. Physical exam is remarkable for mild abdominal tenderness around the known enterocutaneous fistula site however it appears to be healing well with no evidence of superficial or deep infection only serous drainage no foul odor no fluctuance. There is no right upper quadrant tenderness to palpation bowel sounds normal active. CT scan from 09/13/2024 personally reviewed and interpreted and appears to be stable with no acute changes noted. Differential diagnosis includes acetaminophen toxicity versus hepatitis versus other toxicity etc. Initial workup will be conducted with hematologic labs acetaminophen level UA. Initial interventions include crystalloid bolus NAC loading dose. Initial workup reviewed by me are very reassuring as his transaminitis is actually significantly reduced and his acetaminophen level was less than 10 indicating that there is no need for acetaminophen antidote.. Given this patient is appropriate for discharge with close follow-up with his PCP as that his hepatitis panel is still not back and referred to GI for further review and recommendations. I was consulted by the AD[facility], and we discussed the complexity of the problems being addressed. I approved the treatment and management plan for this patient's care in the Emergency Department, thus performing a substantive portion of the medical decision making. Sung Shook MD Critical Care <SAMY Kay - Last Filed: 09/22/24 16:20> Critical Care Time Critical Care Time: No
[2024-09-22 14:35] LABS: Microscopic, Urine URINE MICROSCOPIC (MICROSCOPIC)
[2024-09-22 14:42] LABS: Appearance,Urine CLEAR (Clear); Bilirubin,Urine Negative (Negative); Blood, Urine Negative (Negative); Color,Urine YELLOW (Yellow); Glucose,Urine (UA) Negative (Negative); Ketones,Urine Negative (Negative); Leukocyte Esterase,Urine Negative (Negative); Nitrate,Urine Negative (Negative); Protein,Urine Negative (Negative); Specific Gravity, Urine >= 1.030 (1.005-1.030); Urobilinogen,Urine 0.2 EU/dl (0.2)
[2024-09-22 14:49] VITALS: BP 123/73; PULSE 60; O2SAT 97
[2024-09-22 15:00] VITALS: BP 134/80; PULSE 60; O2SAT 96
[2024-09-22 15:03] LABS: Basophils % 0.6 % (0.1-2.0); Eosinophils # 0.1 K/mm3 (0.0-0.4); Hematocrit 41.3 % (42.0-52.0); Hemoglobin 13.8 g/dL (14.1-18.0); Lymphocytes # 1.3 K/mm3 (0.7-4.5); Lymphocytes % 31.4 % (10-50); Mean Corpuscular HGB Conc 33.4 g/dL (31.8-35.4); Mean Corpuscular Hemoglobin 30.5 pg (27.0-31.2); Mean Corpuscular Volume 91.3 fl (80-94); Mean Platelet Volume 7.8 fl (7.4-10.4); Monocytes # 0.2 K/mm3 (0.1-1.0); Monocytes % 5.7 % (1.7-9.3); Neutrophils # 2.4 K/mm3 (1.8-7.8); Neutrophils % 60.2 % (37.0-80.0); Platelet Count 215 K/mm3 (142-424); Red Blood Count 4.52 M/mm3 (4.60-6.20); Red Cell Distribution Width 14.6 % (11.5-17.5)
[2024-09-22 15:03] LABS: Bacteria,Urine Trace /lpf; Squamous Epithelial Cell,Urine Occasional #/hpf (0-5); WBC,Urine Occasional #/hpf (0-3)
[2024-09-22 15:17] LABS: Alanine Aminotransferase 345 U/L (12-78); Albumin Level 4.3 g/dl (3.5-5.0); Albumin/Globulin Ratio 1.3 (1.1-1.8); Alkaline Phosphatase 128 U/L (38-126); Anion Gap 12.8 mEq/L (5-15); Aspartate Amino Transferase 69 U/L (17-59); Bilirubin,Total 0.7 mg/dl (0.2-1.3); Blood Urea Nitrogen 10 mg/dl (9-20); Calcium 9.2 mg/dl (8.4-10.2); Carbon Dioxide 25 mmol/L (22.0-30.0); Chloride 103 mmol/L (98-107); Creatinine Clearance Estimated 134 mL/min (50-200); Estimated Glomerular Filt Rate 137 ml/min (>60); GFR (African American) 166 ML/MIN (>60); Globulin 3.3 g/dL (1.3-3.2); Glucose 100 mg/dl (74-100); Lipase 41 U/L (23-300); Potassium 3.8 mmoL/L (3.5-5.1); Sodium 137 mmol/L (136-145); Total Protein,Serum 7.6 g/dl (6.3-8.2)
[2024-09-22 15:18] LABS: Activated Partial Thrombo Time 27.9 seconds (22.8-30.6)
[2024-09-22 15:19] LABS: Acetaminophen < 10 ug/ml (10-30)
[2024-09-22] MEDS: 0.9 % SODIUM CHLORIDE 1000ML 1,000 ML 999 ML IV (15:23)
[2024-09-22 15:29] LABS: INR 0.92 (0.9-1.1); Prothrombin Time 10.4 seconds (10.1-12.5)
[2024-09-22 15:30] VITALS: BP 140/71; PULSE 57; O2SAT 98
[2024-09-22 16:03] LABS: Monoscreen (Rapid) Negative (Negative)
[2024-09-22 16:20] VITALS: BP 145/69; PULSE 58; RESP 18; TEMP 36.7; O2SAT 99
[2024-09-23 09:19] LABS: HBsAg Screen Negative (Negative); HCV Ab Non Reactive (Non Reactive); Hep A Ab, IGM Negative (Negative); Hep B Core Ab, IgM Negative (Negative)
== END 2024-09-22 16:20 | disposition home or self-care (01) ==
PROVIDERS: Physician Assistant; Emergency Provider Emergency Medicine; PCP Family Medicine
DX: R74.01 Elevation of levels of liver transaminase levels (principal)
CPT/HCPCS: 80053; 80074; 80329; 81001; 83690; 85025; 85610; 85730; 86318; 96360; 99283; G0480; J7030

== ENCOUNTER 2024-09-24 10:48 | Outpatient (CLI) | payer MEDICAID, SELFPAY ==
[2024-09-24 18:40] LABS: Alanine Aminotransferase 199 U/L (12-78); Albumin Level 4.2 g/dl (3.5-5.0); Albumin/Globulin Ratio 1.4 (1.1-1.8); Alkaline Phosphatase 108 U/L (38-126); Anion Gap 14.5 mEq/L (5-15); Aspartate Amino Transferase 73 U/L (17-59); Bilirubin,Total 0.8 mg/dl (0.2-1.3); Blood Urea Nitrogen 10 mg/dl (9-20); Carbon Dioxide 25 mmol/L (22.0-30.0); Chloride 104 mmol/L (98-107); Estimated Glomerular Filt Rate 137 ml/min (>60); GFR (African American) 166 ML/MIN (>60); Glucose 89 mg/dl (74-100); Potassium 5.5 mmoL/L (3.5-5.1); Sodium 138 mmol/L (136-145); Total Protein,Serum 7.2 g/dl (6.3-8.2)
== END 2024-09-24 23:59 | disposition home or self-care (01) ==
LOC: LAB.DROPOF 09-27 10:48
PROVIDERS: PCP Family Medicine; Visit Provider Family Medicine
DX: R74.8 Abnormal levels of other serum enzymes (principal)
CPT/HCPCS: 80053

== ENCOUNTER 2024-10-18 10:05 | Outpatient (CLI) | payer MEDICAID, SELFPAY ==
[2024-10-18 19:52] LABS: Alanine Aminotransferase 34 U/L (12-78); Albumin Level 3.9 g/dl (3.5-5.0); Albumin/Globulin Ratio 1.6 (1.1-1.8); Alkaline Phosphatase 89 U/L (38-126); Anion Gap 14.3 mEq/L (5-15); Aspartate Amino Transferase 35 U/L (17-59); Bilirubin,Total 0.5 mg/dl (0.2-1.3); Blood Urea Nitrogen 14 mg/dl (9-20); Calcium 9.3 mg/dl (8.4-10.2); Carbon Dioxide 21 mmol/L (22.0-30.0); Chloride 107 mmol/L (98-107); Estimated Glomerular Filt Rate 115 ml/min (>60); GFR (African American) 139 ML/MIN (>60); Globulin 2.4 g/dL (1.3-3.2); Glucose 138 mg/dl (74-100); Potassium 4.3 mmoL/L (3.5-5.1); Sodium 138 mmol/L (136-145); Total Protein,Serum 6.3 g/dl (6.3-8.2)
== END 2024-10-18 23:59 | disposition home or self-care (01) ==
LOC: LAB.DROPOF 10-19 08:43
PROVIDERS: PCP Family Medicine; Visit Provider Family Medicine
DX: K63.2 Fistula of intestine (principal)
CPT/HCPCS: 80053

== ENCOUNTER 2024-12-02 19:38 | Emergency (ER) | payer MEDICAID, SELFPAY ==
--- NOTE | 2024-12-02 19:44 | ED_ITS ---
<Statement entered by Ling Birmingham MD - 12/02/24 22:42> I was consulted by the ADAMS, and we discussed the complexity of the problems being addressed. I approved the treatment and management plan for this patient's care in the emergency department, thus performing a substantive portion of the medical decision making. Ling Birmingham MD, BIJAL, FACEP Discharge Plan Disposition Patient Disposition: Home, Self-Care Prescriptions Prescriptions: No Action atorvastatin 40 mg tablet 40 mg PO HS Qty: 90 3RF clopidogrel 75 mg tablet 75 mg PO DAILY Qty: 90 3RF bupropion HCl [Wellbutrin SR] 150 mg tablet sustained-release 12 hr 150 mg PO BID Qty: 180 3RF mupirocin 2 % ointment 1 applic topical TID Qty: 22 5RF cephalexin 500 mg capsule 500 mg PO Q8H 10 Days Qty: 30 0RF ondansetron 4 mg tablet,disintegrating 4 mg PO Q6HP PRN (Reason: nausea and vomiting) Qty: 60 3RF pantoprazole 40 mg tablet,delayed release (DR/EC) 40 mg PO DAILY Qty: 30 2RF tamsulosin [Flomax] 0.4 mg capsule 0.4 mg PO DAILY Qty: 90 3RF fluoxetine 20 mg capsule 20 mg PO DAILY Qty: 30 2RF zolpidem [Ambien] 5 mg tablet 5 mg PO HS PRN (Reason: sleep) Qty: 30 1RF Rx Instructions: may repeat once if no response in 30-60 minutes oxycodone 5 mg tablet See Rx Instructions PO Q6H PRN (Reason: pain) Qty: 60 0RF Rx Instructions: one or two orally every 6 hours PRN; acetaminophen 325 mg Tablet 650 mg PO Q6HP PRN (Reason: Fever Or Mild Pain (1-3)) Qty: 0 0RF Rx 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 Instructions Additional Instructions/Restrictions: No evidence of bowel obstruction or change in your enterocutaneous fistula or worsening noted. No acute abnormality found on your CT scan today continue follow-up with your primary care doctor as well as your fistula team and [facility]. Clinical Impressions Clinical Impression: Abdominal pain Print Language Print Language: Lao Discharge ED Provider: Ling Birmingham General Adult HPI <SAMY Kay - Last Filed: 12/02/24 20:28> General Chief complaint: Recheck/Abnormal Lab/Rx Stated complaint: Dr Myles to get a CT scan Time Seen by Provider: 12/02/24 19:44 History of Present Illness HPI narrative: Patient presents for evaluation of abdominal pain. Patient has a very complicated abdominal history over the last year. He had a bowel obstruction that required surgery and resection and anastomosis followed by anastomotic breakdown and subsequent development of an enterocutaneous fistula. Enterocutaneous fistula has since closed however patient began having pain in the area back in October and a CAT scan was ordered however patient had not received it yet. He also follows with the fistula clinic at the [facility] and has an appointment on Friday. He presents because the pain has increased over the last day or so. He is however not intolerant of oral intake is having normal bowel movements and passing flatus. He has no drainage from the fistula site and it appears to be well-healed currently. Denies any fever chills hemoptysis hematochezia melena nausea vomit diarrhea Related Data Home Medications ?Medication ?Instructions ?Recorded ?Confirmed promethazine 25 mg tablet 25 mg PO Q6HP PRN nausea and 06/29/24 11/04/24 vomiting sildenafil 100 mg tablet (Viagra) 100 mg PO NEEDED PRN sexual 06/29/24 11/04/24 activity Previous Rx's ?Medication ?Instructions ?Recorded atorvastatin 40 mg tablet 40 mg PO HS #90 tabs 01/07/24 bupropion HCl 150 mg tablet,12 hr 150 mg PO BID #180 ea 01/07/24 sustained-release (Wellbutrin SR) clopidogrel 75 mg tablet 75 mg PO DAILY #90 tabs 01/07/24 acetaminophen 325 mg tablet 650 mg (2 x 325 mg) PO Q6HP PRN 06/24/24 Fever Or Mild Pain (1-3) #0 tabs mupirocin 2 % topical ointment 1 applic topical TID #22 grams 08/23/24 cephalexin 500 mg capsule 500 mg PO Q8H 10 days #30 caps 09/20/24 ondansetron 4 mg disintegrating 4 mg PO Q6HP PRN nausea and 09/20/24 tablet vomiting #60 tabs pantoprazole 40 mg tablet,delayed 40 mg PO DAILY #30 tabs 10/06/24 release fluoxetine 20 mg capsule 20 mg PO DAILY #30 caps 10/12/24 tamsulosin 0.4 mg capsule (Flomax) 0.4 mg PO DAILY #90 caps 10/18/24 zolpidem 5 mg tablet (Ambien) 5 mg PO HS PRN sleep #30 tabs 11/11/24 oxycodone 5 mg tablet See Rx Instructions PO Q6H PRN 12/02/24 pain #60 tabs Allergies Allergy/AdvReac Type Severity Reaction Status Date / Time morphine AdvReac Vomiting Verified 11/04/24 10:26 [facility] <SAMY Kay - Last Filed: 12/02/24 20:28> [facility] Disclaimer: The information contained in this section may have been updated after the patient was seen, as this information can be updated by other users. Medical History Bowel obstruction History of heart attack Heart attack Depression Erosive osteoarthritis of multiple sites Surgical History History of bowel resection S/P exploratory laparotomy Hx of appendectomy Family History Other Diabetes Social History Smoking Status: Former smoker alcohol intake: current alcohol intake frequency: holidays/special occasions only substance use type: denies use current occupational status: employed Travel in the last 8 weeks: None household members: none housing: apartment Have you lived/traveled outside US in past 30 days?: No Contact w/someone who lives/traveled outside US past 30 days?: No Exposure to someone with infectious disease in past 14 days?: No Do you have a fever (greater than 100.4 F or 38 C)?: No Have you tested positive for COVID-19: No Exposed to someone with COVID-19 in past 14 days?: No Do you have a sore throat?: No Do you have a cough?: No Do you have any weakness?: No Do you have any diarrhea?: No Are you experiencing any unusual bleeding?: No Do you have any muscle aches/pain?: No Do you have any abdominal pain?: No Are you experiencing loss of taste or smell?: No Other Medical History Have you received the Flu Vaccine for this season: No Have you received the Pneumonia Vaccine: No <SAMY Kay - Last Filed: 12/02/24 20:28> ROS Obtained: Yes Systems reviewed as appropriate & no additional complaints except as documented Physical Exam <SAMY Kay - Last Filed: 12/02/24 20:28> General General appearance: alert and in no apparent distress Respiratory Respiratory exam: Present normal lung sounds bilaterally Cardiovascular Cardiovascular exam: Present regular rate Neurological Exam Neurological exam: Present alert and oriented X3 Medical Decision Making <SAMY Kay - Last Filed: 12/02/24 20:28> Medical Records Medical records reviewed: Yes I reviewed the patient's medical records. Screening: Per USPSTF and CDC recommendations, given the prevalence of disease in our region, it is our hospital?s policy to screen for HIV and viral Hepatitis for all patients aged 18 and over and those with ongoing risk factors. [place] Inquiry Pt receiving controlled substance: No Vital Signs: 12/02/24 19:48 Temperature 97.9 F Temperature Source Oral Pulse Rate [Right] 59 L Respiratory Rate 16 Blood Pressure [Right Arm] 154/89 H Blood Pressure Mean [Right Arm] 110 02 Sat by Pulse Oximetry 94 L Lab Data Lab results reviewed: Yes I reviewed the patient's lab results. Lab Results 12/02/24 20:16: WBC 4.8, RBC 4.69, Hgb 13.8 L, Hct 40.2 L, MCV 85.7, MCH 29.4, MCHC 34.3, RDW 12.0, Plt Count 208, MPV 9.9, Neut % (Auto) 43.9, Lymph % (Auto) 49.5, Sebastian % (Auto) 5.2, Eos % (Auto) 1.0, Baso % (Auto) 0.4, Neut # (Auto) 2.1, Lymph # (Auto) 2.4, Sebastian # (Auto) 0.3, Eos # (Auto) 0.1, Baso # (Auto) 0.0, Sodium 138, Potassium 4.0, Chloride 105, Carbon Dioxide 26, Anion Gap 11.0, BUN 13, Creatinine 0.70, Estimated Creat Clear 126, Estimated GFR 115, Est GFR ( Amer) 139, Glucose 95, Calcium 9.5, Magnesium 1.8, Total Bilirubin 0.2, AST 34, ALT 29, Alkaline Phosphatase 95, Total Protein 6.8, Albumin 4.4, Globulin 2.4, Albumin/Globulin Ratio 1.8 12/02/24 22:11: Lactate 1.1 12/02/24 20:16 12/02/24 20:16 Orders (Tests/Meds): ED MEDICATIONS Discontinued Medications Generic Name Dose Route Start Last Admin Trade Name Freq PRN Reason Stop Dose Admin Diatrizoate Meglum/Diatrizoate Sod 30 ml 12/02/24 20:43 12/02/24 20:43 Diatrizoate Courtney 66% & Diatrizoate Na 10% 30ml Udc PO 12/02/24 20:44 30 ml ONCE ONE Administration Lactated Ringer's 1,000 mls @ 999 mls/hr 12/02/24 19:51 12/02/24 20:22 Lactated Ringer's 1000 Ml Bag IV 12/02/24 20:51 999 mls/hr .Q1H1M ONE Administration Iopamidol 75 ml 12/02/24 22:18 12/02/24 22:19 Iopamidol-370 (76%);100ml Bottle IV 12/02/24 22:19 75 ml ONCE ONE Administration Ondansetron HCl 4 mg 12/02/24 21:27 12/02/24 21:28 Ondansetron 4mg/2ml Vial IV 12/02/24 21:28 4 mg ONCE ONE Administration Sodium Chloride 10 ml 12/02/24 22:18 12/02/24 22:19 Sodium Chloride 0.9% 10ml Syr (Rad Only) IV 12/02/24 22:19 10 ml ONCE ONE Administration ORDERS Category Date Time Status CT abdomen pelvis w con Stat Cat Scan 12/02/24 19:52 Completed CBC w/Auto Diff [Complete Blood Count Auto Diff] Stat Lab 12/02/24 20:16 Completed CMP [Comprehensive Metabolic Panel] Stat Lab 12/02/24 20:16 Completed Lactic Acid Stat Lab 12/02/24 22:11 Completed Magnesium Stat Lab 12/02/24 20:16 Completed Medical Decision Narrative: In summary patient is a 59-year-old male who presents to the emergency department for evaluation of abdominal pain. Patient is hemodynamically stable upon arrival, afebrile. Physical exam is remarkable for tenderness to palpation on the right side of his previous fistula tract. The fistula itself appears to be well-healed with no evidence of drainage. I do not feel any palpable fluid collection or bowel loops. Bowel sounds normal active.. Differential diagnosis includes scar pain versus possible dehiscence/new fistulous track versus abscess versus gastroenteritis etc. Initial workup will be conducted with hematologic labs CT scan abdomen pelvis with IV and oral contrast. Initial interventions include crystalloid bolus Toradol Tylenol. Initial workup ordered and pending at the time of handoff to Dr. Birmingham at 2100 hrs. <Ling Birmingham MD - Last Filed: 12/02/24 22:49> Vital Signs: 12/02/24 19:48 Temperature 97.9 F Temperature Source Oral Pulse Rate [Right] 59 L Respiratory Rate 16 Blood Pressure [Right Arm] 154/89 H Blood Pressure Mean [Right Arm] 110 02 Sat by Pulse Oximetry 94 L Lab Data Lab results reviewed: Yes I reviewed the patient's lab results. Lab Results 12/02/24 20:16: WBC 4.8, RBC 4.69, Hgb 13.8 L, Hct 40.2 L, MCV 85.7, MCH 29.4, MCHC 34.3, RDW 12.0, Plt Count 208, MPV 9.9, Neut % (Auto) 43.9, Lymph % (Auto) 49.5, Sebastian % (Auto) 5.2, Eos % (Auto) 1.0, Baso % (Auto) 0.4, Neut # (Auto) 2.1, Lymph # (Auto) 2.4, Sebastian # (Auto) 0.3, Eos # (Auto) 0.1, Baso # (Auto) 0.0, Sodium 138, Potassium 4.0, Chloride 105, Carbon Dioxide 26, Anion Gap 11.0, BUN 13, Creatinine 0.70, Estimated Creat Clear 126, Estimated GFR 115, Est GFR ( Amer) 139, Glucose 95, Calcium 9.5, Magnesium 1.8, Total Bilirubin 0.2, AST 34, ALT 29, Alkaline Phosphatase 95, Total Protein 6.8, Albumin 4.4, Globulin 2.4, Albumin/Globulin Ratio 1.8 12/02/24 22:11: Lactate 1.1 Orders (Tests/Meds): ED MEDICATIONS Discontinued Medications Generic Name Dose Route Start Last Admin Trade Name Freq PRN Reason Stop Dose Admin Diatrizoate Meglum/Diatrizoate Sod 30 ml 12/02/24 20:43 12/02/24 20:43 Diatrizoate Courtney 66% & Diatrizoate Na 10% 30ml Udc PO 12/02/24 20:44 30 ml ONCE ONE Administration Lactated Ringer's 1,000 mls @ 999 mls/hr 12/02/24 19:51 12/02/24 20:22 Lactated Ringer's 1000 Ml Bag IV 12/02/24 20:51 999 mls/hr .Q1H1M ONE Administration Iopamidol 75 ml 12/02/24 22:18 12/02/24 22:19 Iopamidol-370 (76%);100ml Bottle IV 12/02/24 22:19 75 ml ONCE ONE Administration Ondansetron HCl 4 mg 12/02/24 21:27 12/02/24 21:28 Ondansetron 4mg/2ml Vial IV 12/02/24 21:28 4 mg ONCE ONE Administration Sodium Chloride 10 ml 12/02/24 22:18 12/02/24 22:19 Sodium Chloride 0.9% 10ml Syr (Rad Only) IV 12/02/24 22:19 10 ml ONCE ONE Administration ORDERS Category Date Time Status CT abdomen pelvis w con Stat Cat Scan 12/02/24 19:52 Completed CBC w/Auto Diff [Complete Blood Count Auto Diff] Stat Lab 12/02/24 20:16 Completed CMP [Comprehensive Metabolic Panel] Stat Lab 12/02/24 20:16 Completed Lactic Acid Stat Lab 12/02/24 22:11 Completed Magnesium Stat Lab 12/02/24 20:16 Completed Medical Decision Narrative: In summary patient is a 59-year-old male who presents to the emergency department for evaluation of abdominal pain. Patient is hemodynamically stable upon arrival, afebrile. Physical exam is remarkable for tenderness to palpation on the right side of his previous fistula tract. The fistula itself appears to be well-healed with no evidence of drainage. I do not feel any palpable fluid collection or bowel loops. Bowel sounds normal active.. Differential diagnosis includes scar pain versus possible dehiscence/new fistulous track versus abscess versus gastroenteritis etc. Initial workup will be conducted with hematologic labs CT scan abdomen pelvis with IV and oral contrast. Initial interventions include crystalloid bolus Toradol Tylenol. Initial workup ordered and pending at the time of handoff to Dr. Birmingham at 2100 hrs. Reassessment 10:[address] Birmingham I took over from Don primarily to follow-up CT scan and reevaluate the patient. CT scan was performed which I personally interpreted which shows no evidence of worsening or recurrent enterocutaneous fistula or abscess or bowel obstruction etc. Radiology read CT as well and there is no acute abnormality found on the CT scan per radiology read as well. Serial abdominal exams still demonstrate some mild right lower quadrant tenderness but otherwise very soft no clinical evidence of erupting EC fistula or infection. He has follow-up with his primary care doctor in the morning and also with his fistula team on Friday. He was discharged in stable condition. Procedures <Ling Birmingham MD - Last Filed: 12/02/24 22:49> Miscellaneous Procedure Procedure Performed: Ultrasound-guided IV Indication difficult IV access Patient was placed in the supine position was prepped and draped in sterile fashion. 20-gauge 48 mm Angiocath was used with axial and long axis planes on the ultrasound under direct visual guidance. The tip of the needle was observed being inserted directly into the vein itself and catheter was advanced under direct guidance. No significant complications. Location right basillic vein in the right upper extremity. Critical Care <SAMY Kay - Last Filed: 12/02/24 20:28> Critical Care Time Critical Care Time: No
[2024-12-02 19:48] VITALS: BP 154/89; PULSE 59; RESP 16; TEMP 36.6; O2SAT 94; BMI 25.1
--- NOTE | 2024-12-02 19:52 | CT_ITS ---
PROCEDURE INFORMATION: Exam: CT Abdomen And Pelvis With Contrast Exam date and time: 12/02/2024 10:20 PM Age: 59 years old Clinical indication: Abdominal pain; Additional info: Abdominal pain, enterocutaneous fistula TECHNIQUE: Imaging protocol: Computed tomography of the abdomen and pelvis with contrast. Radiation optimization: All CT scans at this facility use at least one of these dose optimization techniques: automated exposure control; mA and/or kV adjustment per patient size (includes targeted exams where dose is matched to clinical indication); or iterative reconstruction. Contrast material: ISOVUE; Contrast volume: 75 ml; Contrast route: IV; COMPARISON: CT ABDOMEN PELVIS W CON 09/13/2024 9:43 AM FINDINGS: Lungs: Calcified granulomata in the lung bases bilaterally. Liver: Small granulomatous calcifications. No mass. Gallbladder and biliary ducts: Normal. No calcified stones. No ductal dilation. Pancreas: Normal. No ductal dilation. Spleen: Multiple granulomatous calcifications within the spleen. Adrenal glands: 2.3 x 2.8 cm enhancing nodule in the left adrenal gland. Unchanged compared to prior examination. Kidneys and ureters: Normal. No hydronephrosis. Stomach and bowel: Intact bowel anastomosis in the right lower quadrant. Oral contrast opacifies the distal small bowel and entirety of the colon. Appendix: No evidence of appendicitis. Intraperitoneal space: Unremarkable. No free air. No significant fluid collection. Vasculature: Unremarkable. No abdominal aortic aneurysm. Lymph nodes: Unremarkable. No enlarged lymph nodes. Urinary bladder: Unremarkable as visualized. Reproductive: Unremarkable as visualized. Bones/joints: Unremarkable. No acute fracture. Soft tissues: Possible enterocutaneous fistula in the right periumbilical region, adjacent to the bowel anastomosis. IMPRESSION: No acute intra-abdominal abnormality. No significant interval change in apparent enterocutaneous fistula in the right periumbilical region. Stable left adrenal nodule.
[2024-12-02] MEDS: LACTATED RINGERS 1000ML 1,000 ML 999 ML IV (20:22)
[2024-12-02 20:30] LABS: Basophils % 0.4 % (0.1-2.0); Eosinophils # 0.1 K/mm3 (0.0-0.4); Hematocrit 40.2 % (42.0-52.0); Hemoglobin 13.8 g/dL (14.1-18.0); Lymphocytes # 2.4 K/mm3 (0.7-4.5); Lymphocytes % 49.5 % (10-50); Mean Corpuscular HGB Conc 34.3 g/dL (31.8-35.4); Mean Corpuscular Hemoglobin 29.4 pg (27.0-31.2); Mean Corpuscular Volume 85.7 fl (80-94); Mean Platelet Volume 9.9 fl (7.4-10.4); Monocytes # 0.3 K/mm3 (0.1-1.0); Monocytes % 5.2 % (1.7-9.3); Neutrophils # 2.1 K/mm3 (1.8-7.8); Neutrophils % 43.9 % (37.0-80.0); Platelet Count 208 K/mm3 (142-424); Red Blood Count 4.69 M/mm3 (4.60-6.20); White Blood Count 4.8 K/mm3 (4.8-10.8)
[2024-12-02] MEDS: DIATRIZOATE MEG 66% & DIATRIZOATE NA 10% 30ML UDC 30 ML PO (20:43)
[2024-12-02 20:49] LABS: Alanine Aminotransferase 29 U/L (12-78); Albumin Level 4.4 g/dl (3.5-5.0); Albumin/Globulin Ratio 1.8 (1.1-1.8); Alkaline Phosphatase 95 U/L (38-126); Aspartate Amino Transferase 34 U/L (17-59); Bilirubin,Total 0.2 mg/dl (0.2-1.3); Blood Urea Nitrogen 13 mg/dl (9-20); Calcium 9.5 mg/dl (8.4-10.2); Carbon Dioxide 26 mmol/L (22.0-30.0); Chloride 105 mmol/L (98-107); Creatinine Clearance Estimated 126 mL/min (50-200); Estimated Glomerular Filt Rate 115 ml/min (>60); GFR (African American) 139 ML/MIN (>60); Globulin 2.4 g/dL (1.3-3.2); Glucose 95 mg/dl (74-100); Magnesium 1.8 mg/dl (1.6-2.3); Sodium 138 mmol/L (136-145); Total Protein,Serum 6.8 g/dl (6.3-8.2)
--- NOTE | 2024-12-02 20:57 | PC.NURSE ---
attempted an Anastacio this patient labs were collected. When I went to flush the IV the sit became swollen and infiltrated. IV was removed.
[2024-12-02] MEDS: ONDANSETRON 4MG/2ML VIAL 4 MG IV (21:28)
[2024-12-02] MEDS: IOPAMIDOL-370 (76%);100ML BOTTLE 75 ML IV (22:19)
[2024-12-02] MEDS: SODIUM CHLORIDE 0.9% 10ML SYR (RAD ONLY) 10 ML IV (22:19)
[2024-12-02 22:27] LABS: Lactic Acid 1.1 mmol/L (0.7-2.1)
[2024-12-02 22:50] VITALS: BP 155/88; PULSE 65; RESP 18; TEMP 36.7; O2SAT 97
== END 2024-12-02 23:01 | disposition home or self-care (01) ==
PROVIDERS: Physician Assistant; Emergency Provider Student in an Organized Health Care Education/Training Program; PCP Family Medicine
DX: R10.9 Unspecified abdominal pain (principal)
CPT/HCPCS: 74177; 80053; 83605; 83735; 85025; 96361; 96374; 99285; J2405; J7120; Q9963; Q9967

== ENCOUNTER 2024-12-22 09:33 | Outpatient (CLI) | payer MEDICAID, SELFPAY ==
[2024-12-22 17:59] LABS: Basophils % 0.6 % (0.1-2.0); Eosinophils # 0.1 K/mm3 (0.0-0.4); Hematocrit 42.1 % (42.0-52.0); Hemoglobin 14.2 g/dL (14.1-18.0); Lymphocytes # 1.9 K/mm3 (0.7-4.5); Mean Corpuscular HGB Conc 33.7 g/dL (31.8-35.4); Mean Corpuscular Hemoglobin 29.6 pg (27.0-31.2); Mean Corpuscular Volume 87.9 fl (80-94); Mean Platelet Volume 10.4 fl (7.4-10.4); Monocytes # 0.3 K/mm3 (0.1-1.0); Monocytes % 6.9 % (1.7-9.3); Neutrophils # 2.6 K/mm3 (1.8-7.8); Neutrophils % 52.3 % (37.0-80.0); Platelet Count 203 K/mm3 (142-424); Red Blood Count 4.79 M/mm3 (4.60-6.20); Red Cell Distribution Width 12.2 % (11.5-17.5)
[2024-12-22 18:30] LABS: Alanine Aminotransferase 31 U/L (12-78); Albumin Level 4.5 g/dl (3.5-5.0); Albumin/Globulin Ratio 1.9 (1.1-1.8); Alkaline Phosphatase 83 U/L (38-126); Anion Gap 13.3 mEq/L (5-15); Aspartate Amino Transferase 30 U/L (17-59); Bilirubin,Total 0.6 mg/dl (0.2-1.3); Blood Urea Nitrogen 16 mg/dl (9-20); Calcium 9.5 mg/dl (8.4-10.2); Carbon Dioxide 28 mmol/L (22.0-30.0); Chloride 101 mmol/L (98-107); Estimated Glomerular Filt Rate 99 ml/min (>60); GFR (African American) 119 ML/MIN (>60); Globulin 2.4 g/dL (1.3-3.2); Glucose 97 mg/dl (74-100); Potassium 4.3 mmoL/L (3.5-5.1); Sodium 138 mmol/L (136-145); Total Protein,Serum 6.9 g/dl (6.3-8.2)
[2024-12-22 18:43] LABS: Erythrocyte Sedimentation Rate 8 mm/hr (0-20)
== END 2024-12-22 23:59 | disposition home or self-care (01) ==
LOC: LAB.DROPOF 12-23 09:33
PROVIDERS: PCP Family Medicine; Visit Provider Family Medicine
DX: K63.2 Fistula of intestine (principal); R10.9 Unspecified abdominal pain
CPT/HCPCS: 80053; 85025; 85651

== ENCOUNTER 2025-02-17 09:34 | Outpatient (CLI) | payer MEDICAID, SELFPAY ==
--- NOTE | 2025-02-17 09:38 | CT_ITS ---
FINAL REPORT TECHNIQUE: Thin section axial images are obtained through the abdomen and pelvis after intravenous contrast. Reconstruction images were obtained from the axial data. Exam was performed using dose reduction techniques. CLINICAL HISTORY: FISTULA F/U COMPARISON: 12/03/2024, 07/15/2024 FINDINGS: LUNG BASES: Multiple granulomas are seen in the lung bases. Heart size is normal. LIVER: Homogeneous. No focal lesion. GALLBLADDER/BILIARY SYSTEM: Gallbladder is present. No gallstones. No biliary dilatation. SPLEEN: Unremarkable. PANCREAS: Unremarkable. ADRENALS: The right adrenal gland is unremarkable. There is a 27 mm left adrenal nodule which is unchanged. KIDNEYS/URETERS/BLADDER: No hydronephrosis, renal mass, or renal stone. Unremarkable urinary bladder. GI TRACT: There is a surgical anastomosis in the right lower quadrant. No oral contrast was administered. As a result, evaluation for abnormal communication between the GI tract and skin is limited. There is abnormal soft tissue in the region of the umbilicus which appear similar to the prior exam. There is no air-filled tract. There is no fluid collection within the abdominal cavity or abdominal wall. PELVIC ORGANS: Unremarkable for age. LYMPH NODES/RETROPERITONEUM/MESENTERY: No lymphadenopathy. No abdominal aortic aneurysm. FREE FLUID: No ascites. BONES: No acute osseous abnormality. IMPRESSION: No convincing enterocutaneous fissure on this exam. However, oral contrast was not administered. A small collapsed tract is not excluded. If there is an opening in the abdominal wall, consider injecting a small amount of contrast and then rescanning. Reviewed, Interpreted and Dictated by Myrna Hood MD Transcribed by Mary Kate Melissa Authenticated and [facility]
[2025-02-17 10:06] LABS: Blood Urea Nitrogen 12 mg/dl (9-20); Estimated Glomerular Filt Rate 115 ml/min (>60); GFR (African American) 139 ML/MIN (>60)
[2025-02-17] MEDS: SODIUM CHLORIDE 0.9% 10ML SYR (RAD ONLY) 10 ML IV (10:37)
[2025-02-17] MEDS: IOPAMIDOL-370 (76%);100ML BOTTLE 75 ML IV (10:37)
== END 2025-02-17 23:59 | disposition home or self-care (01) ==
LOC: RAD 09:35
PROVIDERS: PCP Family Medicine; Visit Provider Surgery
DX: L98.8 Other specified disorders of the skin and subcutaneous tissue (principal)
CPT/HCPCS: 36415; 74177; 82565; 84520; Q9967

== ENCOUNTER 2025-06-08 07:15 | Outpatient (CLI) | payer MEDICAID, SELFPAY ==
--- OUTSIDE RECORDS SUMMARY | 2025-06-08 07:17 | XMS_ITS | Encounter Summary ---
Author Organization Healthcare Address [address] [place] [address] Care Team Providers Care Rockboard Lather Name Role Phone Ceasar Myles MD Primary Care Provider [phone] Encounter Details Date Type Department Care Team ([facility] st Contact Info) Description 06/28/2024 Orders Only External Location [address] [place] [address] Provider, External Social History Tobacco Use Types Packs/Day Years Used Date Smoking Tobacco: Never Assessed Sex and Gender Information Value Date Recorded Sex Assigned at Not on file Legal Sex Male 8:29 PM EDT Gender Identity Not on file Sexual Orientation Not on file documented as of this encounter Plan of Treatment Not on file documented as of this encounter Procedures Procedure Name Priority Date/Time Associated Diagnosis Comments CT OUTSIDE IMAGES 06/28/2024 5:15 PM EDT documented in this encounter Results * CT OUTSIDE IMAGES (06/28/2024 5:15 PM EDT) Anatomical Region Laterality Modality Computed Tomogra phy 06/28/2024 5:15 PM EDT External Provider IMG CT PROCEDURES Final Result documented in this encounter Visit Diagnoses Not on filedocumented in this encounter Additional Health Concerns Infection Onset Date Last Indicated Resolved Time Respiratory Rule-Out 07/31/2024 07/31/2024 024 6:37 PM EDT documented as of this encounter Care Teams Rockboard Lather Relationship Specialty Start Date End Date Ceasar Myles MD [address] [place] [address] PCP - General 06/23/24 documented as of this encounter
--- OUTSIDE RECORDS SUMMARY | 2025-06-08 07:17 | XMS_ITS | Encounter Summary ---
Author Organization Healthcare Address [address] [place] [address] Care Team Providers Care Mortgage Coordinator Name Role Phone Ceasar Myles MD Primary Care Provider [phone] Encounter Details Date Type Department Care Team ([facility] st Contact Info) Description 07/02/2024 Orders Only External Location [address] [place] [address] Provider, External Social History Tobacco Use Types [...] Procedure Name Priority Date/Time Associated Diagnosis Comments XR OUTSIDE IMAGES 07/02/2024 7:06 AM EDT documented in this encounter Results * XR OUTSIDE IMAGES (07/02/2024 7:06 AM EDT) Anatomical Region Laterality Modality Radiographic Masha ging 07/02/2024 7:06 AM EDT us External Provider IMG XR PROCEDURES Final Result documented in this encounter Visit Diagnoses Not on filedocumented in this encounter Additional Health Concerns Infection Onset Date Last Indicated Resolved Time Respiratory Rule-Out 07/31/2024 07/31/2024 024 6:37 PM EDT documented as of this encounter Care Teams Mortgage Coordinator Relationship Specialty Start Date End Date Ceasar Myles MD [address] [place] [address] PCP - General 06/23/24 documented as of this encounter
--- OUTSIDE RECORDS SUMMARY | 2025-06-08 07:17 | XMS_ITS | Encounter Summary ---
Author Organization Healthcare Address [address] [place] [address] Care Team Providers Care Menu Planner Name Role Phone Ceasar Myles MD Primary Care Provider [phone] Encounter Details Date Type Department Care Team ([facility] st Contact Info) Description 07/02/2024 Orders Only External Location [address] [place] [address] Jose Antonio Nation MD [address] [place], [place] [id number] Social History Tobacco Use Types Packs/Day Years [...] Associated Diagnosis Comments XR OUTSIDE IMAGES 07/02/2024 11:39 AM EDT documented in this encounter Results * XR OUTSIDE IMAGES (07/02/2024 11:39 AM EDT) Anatomical Region Laterality Modality Radiographic Masha ging 07/02/2024 11:3 9 AM EDT Jose Antonio Nation MD IMG XR PROCEDURES Final Resu lt documented in this encounter Visit Diagnoses Not on filedocumented in this encounter Additional Health Concerns Infection Onset Date Last Indicated Resolved Time Respiratory Rule-Out 07/31/2024 07/31/20242 024 6:37 PM EDT documented as of this encounter Care Teams Menu Planner Relationship Specialty Start Date End Date Ceasar Myles MD [address] [place], [place] [id number] PCP - General 06/23/24 documented as of this encounter
--- OUTSIDE RECORDS SUMMARY | 2025-06-08 07:17 | XMS_ITS | Encounter Summary ---
Author Organization Healthcare Address [address] [place] [address] Care Team Providers Care Morphology Teacher Name Role Phone Ceasar Myles MD Primary Care Provider [phone] Encounter Details Date Type Department Care Team ([facility] st Contact Info) Description 07/03/2024 Orders Only External Location [address] [place] [address] Jose Antonio Nation MD [address] [place], [place] [id number] Social History Tobacco Use Types Packs/Day Years [...] Date/Time Associated Diagnosis Comments XR OUTSIDE IMAGES 07/03/2024 9:57 AM EDT documented in this encounter Results * XR OUTSIDE IMAGES (07/03/2024 9:57 AM EDT) Anatomical Region Laterality Modality Radiographic Masha ging 07/03/2024 9:57 AM EDT Jose Antonio MAGANAG XR PROCEDURES Final Resu lt documented in this encounter Visit Diagnoses Not on filedocumented in this encounter Additional Health Concerns Infection Onset Date Last Indicated Resolved Time Respiratory Rule-Out 07/31/2024 07/31/2024 024 6:37 PM EDT documented as of this encounter Care Teams Morphology Teacher Relationship Specialty Start Date End Date Ceasar Myles MD [facility] [place] [address] PCP - General 06/23/24 documented as of this encounter
--- OUTSIDE RECORDS SUMMARY | 2025-06-08 07:17 | XMS_ITS | Clinical Summary ---
Author Organization [facility] Address [address] [place] [address] Phone Care Team Providers Care Paper Goods Machine Operator Name Role Phone Ceasar Myles MD Primary Care Provider [phone] Allergies No known active allergies Medications fluoxetine (PROZAC) 20 mg Take 20 mg by mouth daily. Active Surgical History Surgery Date Site/Laterality Comments APPENDECTOMY Social History Tobacco Use Types Packs/Day Years Used Date Smoking Tobacco: Former Smokeless Tobacco: Never Alcohol Use Standard Drinks/Week Comments No 0 (1 standard drink = 0.6 oz pur e alcohol) Sex and Gender Information Value Date Recorded Sex Assigned at Not on file Legal Sex Male 11:30 PM EDT Gender Identity Not on file Sexual Orientation Not on file Obstetrics History Last Filed Vital Signs Vital Sign Reading Time Taken Comments Blood Pressure 120/66 01/02/2018 11:57 PM EST Pulse 68 01/02/2018 11:57 PM EST Temperature 36.9 C (98.4 F) 01/02/2018 9:23 PM EST Respiratory Rate 16 01/02/2018 11:57 PM EST Oxygen Saturation 93% 01/02/2018 11:57 PM EST Inhaled Oxygen Concentration - - Weight 83.9 kg (185 lb) 01/02/2018 9:23 PM EST Height 177.8 cm (5' 10 ) 01/02/2018 9:23 PM EST Body Mass Index 26.54 01/02/2018 9:23 PM EST Plan of Treatment Health Maintenance Due Date Last Done Comments Annual Wellness Exam 1967 Hepatitis C Screening 1982 DTaP/TDaP/Td (1 - Tdap) 1983 Cologuard 2009 Colon Cancer Screening 2009 Colonoscopy 2009 FIT 2009 Sigmoidoscopy 2009 Virtual Colonography 2009 Pneumococcal Vaccine 50+ (1 of 1 - PCV) 2014 Zoster (1 of 2) 2014 COVID-19 Vaccine (1 - 2023-2 5 season) 2024 Influenza Vaccine (#1) 2025 Hepatitis B Vaccine Aged Out No longe r eligible based on patient's age to complete this topic Meningococcal B Vaccine Aged Out No l onger eligible based on patient's age to complete this topic Insurance [facility] [address] Care Teams Paper Goods Machine Operator Relationship Specialty Start Date End Date Ceasar Myles MD PCP - General 05/01/10
--- OUTSIDE RECORDS SUMMARY | 2025-06-08 07:17 | XMS_ITS | Encounter Summary ---
Author Organization Healthcare Address [address] [place] [address] Care Team Providers Care Ironer Hand Name Role Phone Ceasar Myles MD Primary Care Provider [phone] Encounter Details Date Type Department Care Team ([facility] st Contact Info) Description 07/04/2024 Orders Only External Location [address] [place] [address] Jose Antonio Nation MD [address] [place], [place] [phone] Social History Tobacco Use Types Packs/Day Years [...] Date/Time Associated Diagnosis Comments XR OUTSIDE IMAGES 07/04/2024 7:11 AM EDT documented in this encounter Results * XR OUTSIDE IMAGES (07/04/2024 7:11 AM EDT) Anatomical Region Laterality Modality Radiographic Masha ging 07/04/2024 7:11 AM EDT Jose Antonio MAGANAG XR PROCEDURES Final Resu lt documented in this encounter Visit Diagnoses Not on filedocumented in this encounter Additional Health Concerns Infection Onset Date Last Indicated Resolved Time Respiratory Rule-Out 07/31/2024 07/31/2024 024 6:37 PM EDT documented as of this encounter Care Teams Ironer Hand Relationship Specialty Start Date End Date Ceasar Myles MD [facility] [place] [address] PCP - General 06/23/24 documented as of this encounter
--- OUTSIDE RECORDS SUMMARY | 2025-06-08 07:17 | XMS_ITS | Encounter Summary ---
Author Organization Healthcare Address [address] [place] [address] Care Team Providers Care Janitorial Services Supervisor Name Role Phone Ceasar Myles MD Primary Care Provider [phone] Encounter Details Date Type Department Care Team ([facility] st Contact Info) Description 06/29/2024 Orders Only External Location [address] [place] [address] Provider, External Social History Tobacco Use Types [...] Date/Time Associated Diagnosis Comments XR OUTSIDE IMAGES 06/29/2024 5:41 PM EDT documented in this encounter Results * XR OUTSIDE IMAGES (06/29/2024 5:41 PM EDT) Anatomical Region Laterality Modality Radiographic Masha ging 06/29/2024 5:41 PM EDT us External Provider IMG XR PROCEDURES Final Result documented in this encounter Visit Diagnoses Not on filedocumented in this encounter Additional Health Concerns Infection Onset Date Last Indicated Resolved Time Respiratory Rule-Out 07/31/2024 07/31/2024 024 6:37 PM EDT documented as of this encounter Care Teams Janitorial Services Supervisor Relationship Specialty Start Date End Date Ceasar Myles MD [address] [place] [address] PCP - General 06/23/24 documented as of this encounter
--- OUTSIDE RECORDS SUMMARY | 2025-06-08 07:18 | XMS_ITS | Encounter Summary ---
Author Organization Healthcare Address [address] [place] [address] Care Team Providers Care Pediatric Medical Assistant Name Role Phone Ceasar Myles MD Primary Care Provider [phone] Encounter Details Date Type Department Care Team ([facility] st Contact Info) Description 06/17/2024 Orders Only External Location [address] [place] [address] Provider, External Social History Tobacco Use Types [...] Date/Time Associated Diagnosis Comments XR OUTSIDE IMAGES 06/17/2024 2:50 PM EDT documented in this encounter Results * XR OUTSIDE IMAGES (06/17/2024 2:50 PM EDT) Anatomical Region Laterality Modality Radiographic Masha ging 06/17/2024 2:50 PM EDT us External Provider IMG XR PROCEDURES Final Result documented in this encounter Visit Diagnoses Not on filedocumented in this encounter Additional Health Concerns Infection Onset Date Last Indicated Resolved Time Respiratory Rule-Out 07/31/2024 07/31/2024 024 6:37 PM EDT documented as of this encounter Care Teams Pediatric Medical Assistant Relationship Specialty Start Date End Date Ceasar Myles MD [address] [place] [address] PCP - General 06/23/24 documented as of this encounter
--- OUTSIDE RECORDS SUMMARY | 2025-06-08 07:18 | XMS_ITS | Encounter Summary ---
Author Organization Healthcare Address [address] [place] [address] Care Team Providers Care Production Miner Name Role Phone Ceasar Myles MD Primary Care Provider [phone] Encounter Details Date Type Department Care Team ([facility] st Contact Info) Description 07/06/2024 Orders Only External Location [address] [place] [address] Jose Antonio Nation MD [address] [place], [place] [id number] Social History Tobacco Use Types Packs/Day Years [...] Date/Time Associated Diagnosis Comments CT OUTSIDE IMAGES 07/06/2024 10:03 AM EDT documented in this encounter Results * CT OUTSIDE IMAGES (07/06/2024 10:03 AM EDT) Anatomical Region Laterality Modality Computed Tomogra phy 07/06/2024 10:0 3 AM EDT Jose Antonio Nation MD IMG CT PROCEDURES Final Resu lt documented in this encounter Visit Diagnoses Not on filedocumented in this encounter Additional Health Concerns Infection Onset Date Last Indicated Resolved Time Respiratory Rule-Out 07/31/2024 07/31/202407/2 024 6:37 PM EDT documented as of this encounter Care Teams Production Miner Relationship Specialty Start Date End Date Ceasar Myles MD [address] [place], [place] [phone] PCP - General 06/23/24 documented as of this encounter
--- OUTSIDE RECORDS SUMMARY | 2025-06-08 07:18 | XMS_ITS | Encounter Summary ---
Author Organization Healthcare Address [address] [place] [address] Care Team Providers Care Quality Coordinator Name Role Phone Ceasar Myles MD Primary Care Provider [phone] Encounter Details Date Type Department Care Team ([facility] st Contact Info) Description 06/17/2024 Orders Only External Location [address] [place] [address] Provider, External Social History Tobacco Use Types [...] Date/Time Associated Diagnosis Comments CT OUTSIDE IMAGES 06/17/2024 1:52 PM EDT documented in this encounter Results * CT OUTSIDE IMAGES (06/17/2024 1:52 PM EDT) Anatomical Region Laterality Modality Computed Tomogra phy 06/17/2024 1:52 PM EDT us External Provider IMG CT PROCEDURES Final Result documented in this encounter Visit Diagnoses Not on filedocumented in this encounter Additional Health Concerns Infection Onset Date Last Indicated Resolved Time Respiratory Rule-Out 07/31/2024 07/31/2024 024 6:37 PM EDT documented as of this encounter Care Teams Quality Coordinator Relationship Specialty Start Date End Date Ceasar Myles MD [address] [place] [address] PCP - General 06/23/24 documented as of this encounter
--- OUTSIDE RECORDS SUMMARY | 2025-06-08 07:18 | XMS_ITS | Encounter Summary ---
Author Organization Healthcare Address [address] [place] [address] Care Team Providers Care Axle Turner Name Role Phone Ceasar Myles MD Primary Care Provider [phone] Encounter Details Date Type Department Care Team ([facility] st Contact Info) Description 07/02/2024 Orders Only External Location [address] [place] [address] Provider, External Social History Tobacco Use Types [...] Associated Diagnosis Comments XR OUTSIDE IMAGES 07/02/2024 6:15 PM EDT documented in this encounter Results * XR OUTSIDE IMAGES (07/02/2024 6:15 PM EDT) Anatomical Region Laterality Modality Radiographic Masha ging 07/02/2024 6:15 PM EDT us External Provider IMG XR PROCEDURES Final Result documented in this encounter Visit Diagnoses Not on filedocumented in this encounter Additional Health Concerns Infection Onset Date Last Indicated Resolved Time Respiratory Rule-Out 07/31/2024 07/31/2024 024 6:37 PM EDT documented as of this encounter Care Teams Axle Turner Relationship Specialty Start Date End Date Ceasar Myles MD [address] [place] [address] PCP - General 06/23/24 documented as of this encounter
--- OUTSIDE RECORDS SUMMARY | 2025-06-08 07:18 | XMS_ITS | Encounter Summary ---
Author Organization Healthcare Address [address] [place] [address] Care Team Providers Care Enroller Name Role Phone Ceasar Myles MD Primary Care Provider [phone] Encounter Details Date Type Department Care Team ([facility] st Contact Info) Description 07/04/2024 Orders Only External Location [address] [place] [address] Jose Antonio Nation MD [address] [place], [place] [id number] Social History Tobacco Use Types Packs/Day Years [...] Associated Diagnosis Comments XR OUTSIDE IMAGES 07/04/2024 11:44 AM EDT documented in this encounter Results * XR OUTSIDE IMAGES (07/04/2024 11:44 AM EDT) Anatomical Region Laterality Modality Radiographic Masha ging 07/04/2024 11:4 4 AM EDT Jose Antonio Nation MD IMG XR PROCEDURES Final Resu lt documented in this encounter Visit Diagnoses Not on filedocumented in this encounter Additional Health Concerns Infection Onset Date Last Indicated Resolved Time Respiratory Rule-Out 07/31/2024 07/31/20242 024 6:37 PM EDT documented as of this encounter Care Teams Enroller Relationship Specialty Start Date End Date Ceasar Myles MD [address] [place], [place] [id number] PCP - General 06/23/24 documented as of this encounter
--- OUTSIDE RECORDS SUMMARY | 2025-06-08 07:18 | XMS_ITS | Encounter Summary ---
Author Organization Healthcare Address [address] [place] [address] Care Team Providers Care It Solutions Architect Name Role Phone Ceasar Myles MD Primary Care Provider [phone] Encounter Details Date Type Department Care Team ([facility] st Contact Info) Description 07/04/2024 Orders Only External Location [address] [place] [address] Jose Antonio Nation MD [address] [place], [place] [phone] Social History Tobacco Use Types Packs/Day Years [...] documented as of this encounter Care Teams It Solutions Architect Relationship Specialty Start Date End Date Ceasar Myles MD [address] [place], [place] [phone] PCP - General 06/23/24 documented as of this encounter
--- OUTSIDE RECORDS SUMMARY | 2025-06-08 07:18 | XMS_ITS | Clinical Summary ---
Author Organization [facility] Address [address] [place] [address] Care Team Providers Care Corporate Manager Name Role Phone Ceasar Myles MD Primary Care Provider [phone] Allergies Active Allergy Reactions Criticality Noted Date Comments Morphine Nausea,Vomiting Medium 07/24/2024 Medications FLUoxetine (PROzac) 20 MG capsule Take 1 capsule (20 mg) by mouth 1 (one) time each day. Active pantoprazole (Protonix) 40 MG EC tablet Take 1 tablet (40 mg) by mouth in the morning. Do not crush, chew, or split. Active clopidogrel (Plavix) 75 MG tablet Take 1 tablet (75 mg) by mouth in the morning. Active atorvastatin (Lipitor) 40 MG tablet Take 1 tablet (40 mg) by mouth nightly. Active ondansetron (Zofran) 4 MG tablet Take 1 tablet (4 mg) by mouth every 6 hours as needed for nausea or vomiting. Active methocarbamol (Robaxin) 750 MG tablet Take 1 tablet (750 mg) by mouth 4 (four) times a day if needed for muscle spasms for up to 10 days. 40 tablet 4 Active Additional Information Patient not taking.Reported on 01/31/2025 naloxone (Narcan) 4 mg/0.1 mL nasal spray 1. Give 1 spray in nostril for no/slow breathing or cannot wake after opioid use 2. Call 911 3. Repeat in other nostril if symptoms continue 1 each Active Additional Information Patient not taking.Reported on 01/31/2025 oxyCODONE-aceta minophen (Percocet) 5-325 MG tablet Take 2 tablets by mouth every 6 hours as needed for moderate pain. Active zolpidem (Ambien) 5 MG tablet Take 1 tablet (5 mg) by mouth nightly. May repeat dose if no result in 30 to 60 minutes Active buPROPion SR (Wellbutrin SR) 150 MG 12 hr tablet Take 1 tablet (150 mg) by mouth 2 (two) times a day. Do not crush, chew, or split. Active promethazine (Phenergan) 25 MG tablet Take 1 tablet (25 mg) by mouth every 6 (six) hours if needed for nausea or vomiting. Active cephalexin (Keflex) 500 MG capsule 1 capsule (500 mg). 4 Active sildenafil (Viagra) 100 MG tablet 1 tablet (100 mg). 4 Active oxyCODONE (Roxicodone) 5 MG immediate release tablet 5 Active tamsulosin (Flomax) 0.4 MG 24 hr capsule 1 capsule (0.4 mg). 4 Active polyethylene glycol (MiraLax) 17 GM/SCOOP powder Take at 6pm - day before procedure. Mix Miralax 238 gram bottle with 64 ounces of Gatorade and refrigerate. Drink 8 ounces every 15 minutes starting at 6pm until completete. 238 g 5 Active Additional Information Patient not taking.Reported on 01/31/2025 bisacodyl (Dulcolax) 5 MG EC tablet Day before procedure at 4pm take 4 tablets with 8 oz of clear liquid. 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 Social History Tobacco Use Types Packs/Day Years Used Date Smoking Tobacco: Former Cigarettes 1 25.5 1 999 - 06/02/2024 Smokeless Tobacco: Never Alcohol Use Standard Drinks/Week Comments Not Currently 0 (1 standard drink = 0.6 oz pur e alcohol) Humiliation, Afraid, Rape, and Kick questionnair e Answer Date Recorded Within the last year, have y ou been afraid of your partner or ex-partner? No 08/02/2024 Within the last year, have y ou been humiliated or emotionally abused in other ways by your partner or ex-partner? No Within the last year, have y ou been kicked, hit, slapped, or otherwise physically hurt by your partner or ex-partner? No 08/02/2024 Within the last year, have y ou been raped or forced to have any kind of sexual activity by your partner or ex-partner? No 08/02/2024 PHQ-2 Answer Date Recorded Patient Health Questionnaire-2 Score 0 09/28/2024 Hunger Vital Sign Answer Date Recorded Within the past 12 months, y ou worried that your food would run out before you got the money to buy more. Never true 08/02/20 24 Within the past 12 months, t he food you bought just didn't last and you didn't have money to get more. Never true 08/02/2024 PRAPARE - Transportation Answer Date Re corded In the past 12 months, has l ack of transportation kept you from medical appointments or from getting medications? No 07/2024 In the past 12 months, has l ack of transportation kept you from meetings, work, or from getting things needed for daily living? No 08/02/2024 Housing Stability Vital Sign Answer Abner e Recorded In the last 12 months, was t here a time when you were not able to pay the mortgage or rent on time? No 08/02/2024 In the last 12 months, how many places have you lived? 2 08/02/2024 In the last 12 months, was t here a time when you did not have a steady place to sleep or slept in a assisted (including now)? No 08/02/2024 Utilities Answer Date Recorded In the past 12 months has th e electric, gas, oil, or water company threatened to shut off services in your home? No 08/02/2024 Sex and Gender Information Value Date Recorded Sex Assigned at Not on file Legal Sex Male 8:29 PM EDT Gender Identity Not on file Sexual Orientation Not on file Last Filed Vital Signs Vital Sign Reading Time Taken Comments Blood Pressure 110/74 01/31/2025 2:37 PM EDT Pulse 62 01/31/2025 2:37 PM EDT Temperature 36.4 C (97.5 F) 01/31/2025 2:37 PM EDT Respiratory Rate 16 01/31/2025 2:37 PM EDT Oxygen Saturation 97% 01/31/2025 2:37 PM EDT Inhaled Oxygen Concentration - - Weight 88.3 kg (194 lb 11.2 oz) 01/31/2025 2:37 PM EDT Height 177.8 cm (5' 10 ) 01/31/2025 2:37 PM EDT Body Mass Index 27.94 01/31/2025 2:37 PM EDT Plan of Treatment Health Maintenance Due Date Last Done Comments [facility]-/Child/Adol SDOH Screenings 1964 [id number] Vaccine (#1) 1969 [facility]-Pneumococcal Vaccine: 50+ Years (1 of 2 - PCV) 1983 [facility]-Zoster Vaccines (1 of 2) 1983 [facility]-DTaP,Tdap,and Td Vaccines (1 - Tdap) 01/15/2006 01/14/2006 CT Colonography 2009 FIT-DNA 2009 FIT 2009 FOBT 2009 Sigmoidoscopy 2009 [facility]-Lung Cancer Screening 2014 [facility]-RSV Vaccine: 60+ Years or (1 - Risk 60-74 years 1-dose series) 2024 [facility]- SDOH Screenings 01/30/2025 [facility]-Adult SDOH Screenings 01/30/2025 08/02/2024 [facility]-Influenza Vaccine (#1) 2025 [facility]-Depression Screening 09/28/2025 09/28/2024 Colonoscopy 01/17/2035 01/17/2025 [facility]-Colorectal Cancer Screening 01/17/2035 [facility]-HIV Screening Completed 07/31/2024 [facility]-Hepatitis C Screening Completed 07/31/2024, 05/2024 [facility]-Obesity Intervention Completed 025, 12/06/2024, 09/28/2024, Additional history exists HPV Vaccines Aged Out No longer eligi ble based on patient's age to complete this topic [facility]-HIB Vaccines Aged Out No longer e ligible based on patient's age to complete this topic [facility]-Hepatitis A Vaccines Aged Out No longer eligible based on patient's age to complete this topic [facility]-IPV Vaccines Aged Out No longer e ligible based on patient's age to complete this topic [facility]-Rotavirus Vaccines Aged Out No lo nger eligible based on patient's age to complete this topic Procedures Procedure Name Priority Date/Time Associated Diagnosis Comments COLONOSCOPY Routine 01/17/2025 2:13 PM EST Enterocutaneous fistula HEPATITIS C ANTIBODY - ED W/REFLEX TO HCV QUANT PCR STAT 07/31/2024 3:15 PM EDT ED HIV 1/2 ANTIBODY/ANTIGEN SCREEN WITH REFLEX TO HIV I/II DIFFERENTIATION STAT 07/31/2024 3:15 PM EDT from Last 3 Months or Most Recently Relevant to Health Maintenance Results * Colonoscopy (01/17/2025 2:13 PM EST) Anatomical Region Laterality Modality Endoscopy Narrative 01/17/2025 2:23 PM EST Table formatting from the original result was not included. Impression: The ileocecal valve, cecum, ascending colon, hepatic flexure, transverse colon, splenic flexure, descending colon and sigmoid colon appeared normal. Subcentimeter polyp in the rectum was removed with cold snare The rectum appeared normal. Recommendations Await pathology results Follow up with Referring Provider Indication Screen for Colorectal Cancer, Average Risk Medications See anesthesia record for anesthesia administered medications. Staff Staff Role Sue Parson RN Endo Nurse Bubba Cast MD Anesthesiologist Patricia Harris CRNA, Suzie Henry CRNA Endo [place] Manager Noemi Roland MD Proceduralist Preprocedure A history and physical has been performed, and patient medication allergies have been reviewed. The patient's tolerance of previous anesthesia has been reviewed. The risks and benefits of the procedure and the sedation options and risks were discussed with the patient. All questions were answered and informed consent obtained. Details of the Procedure The patient underwent monitored anesthesia care, which was administered by an anesthesia professional. The patient's blood pressure, heart rate, level of consciousness, respirations and oxygen were monitored throughout the procedure. A digital rectal exam was performed. A perianal exam was performed. The scope was introduced through the anus and advanced to the terminal ileum. Retroflexion was performed in the rectum. The quality of bowel preparation was evaluated using the [place] Bowel Preparation Scale with scores of: right colon = 3, transverse colon = 3, left colon = 3. The total BBPS score was 9. Bowel prep was adequate. The patient experienced no blood loss. The procedure was not difficult. The patient tolerated the procedure well. There were no apparent adverse events. Attestation I personally performed the entire procedure Events Procedure Events Event Event Time ENDO SCOPE IN TIME 01/17/2025 1:49 PM ENDO CECUM REACHED 01/17/2025 1:53 PM ENDO SCOPE OUT TIME 01/17/2025 2:11 PM Specimens ID Type Source Tests Collected by Time A : rectal polyp Tissue Rectum SURGICAL PATHOLOGY EXAM Noemi Roland MD 01/17/2025 1404 Findings The ileocecal valve, cecum, ascending colon, hepatic flexure, transverse colon, splenic flexure, descending colon and sigmoid colon appeared normal. One pedunculated polyp measuring 5-9 mm in the rectum 10 cm from the anal verge; performed cold snare with complete en bloc removal and retrieved specimen The rectum appeared normal. Noemi Howell MD GI PROCEDURE ORDERABLES F inal Result * ED HIV 1/2 Antibody/Antigen Screen w/Reflex to HIV 1/2 Differentiation (07/31/2024 3:15 PM EDT) [facility] HIV 1 & 2 Antibody/Antigen Screen Non Reactive Non Reactive 07/31/2024 4:27 PM EDT [facility] Comment:Screening for HIV 1 & 2 antibodies, and P24 antigen is NONREACTIVE. No confirmatory testing is required. Blood Venous blood specimen / Unknown Venipuncture / Unknown 07/31/2024 3:15 PM EDT 07/31/2024 3:46 PM EDT Nixon Roemro MD LAB BLOOD ORDERABLES Final Res ult Performing Organization Address City/[facility] Co de Phone Number [facility] [address] [place] [address] * Hepatitis C Antibody - ED (07/31/2024 3:15 PM EDT) [facility] Hepatitis C Antibody Negative Negative 07/31/2024 4:22 PM EDT [facility] Blood Venous blood specimen / Unknown Venipuncture / Unknown 07/31/2024 3:15 PM EDT 07/31/2024 3:43 PM EDT Nixon Romero MD LAB BLOOD ORDERABLES Final Res ult Performing Organization Address City/State/[facility] Co de Phone Number [facility] [address] [place] [address] from Last 3 Months or Most Recently Relevant to Health Maintenance Insurance [employer] [place] Advance Directives * Full Code (Latest Code Status on File) Date Activated Date Inactivated Comments 08/01/2024 12:16 AM 08/02/2024 5:07 PM Question Answer Comments Patient has decision-making capacity? Yes * Full Code Date Activated Date Inactivated Comments 07/24/2024 4:56 AM 07/28/2024 7:24 PM Question Answer Comments Patient has decision-making capacity? Yes Care Teams Corporate Manager Relationship Specialty Start Date End Date Ceasar Myles MD [facility] [place] [address] PCP - General 06/23/24
--- OUTSIDE RECORDS SUMMARY | 2025-06-08 07:18 | XMS_ITS | Encounter Summary ---
Author Organization Healthcare Address [address] [place] [address] Care Team Providers Care Senior Sql Server Database Developer Name Role Phone Ceasar Myles MD Primary Care Provider [phone] Encounter Details Date Type Department Care Team ([facility] st Contact Info) Description 07/12/2024 Orders Only External Location [address] [place] [address] Jose Antonio Nation MD [address] [place], [place] [id number] Social History Tobacco Use Types Packs/Day Years [...] Date/Time Associated Diagnosis Comments CT OUTSIDE IMAGES 07/12/2024 3:41 PM EDT documented in this encounter Results * CT OUTSIDE IMAGES (07/12/2024 3:41 PM EDT) Anatomical Region Laterality Modality Computed Tomogra phy 07/12/2024 3:41 PM EDT Jose Antonio Nation MD IMG CT PROCEDURES Final Resu lt documented in this encounter Visit Diagnoses Not on filedocumented in this encounter Additional Health Concerns Infection Onset Date Last Indicated Resolved Time Respiratory Rule-Out 07/31/2024 07/31/202407/31/2 024 6:37 PM EDT documented as of this encounter Care Teams Senior Sql Server Database Developer Relationship Specialty Start Date End Date Ceasar Myles MD [address] [place], [place] [id number] PCP - General 06/23/24 documented as of this encounter
--- OUTSIDE RECORDS SUMMARY | 2025-06-08 07:18 | XMS_ITS | Encounter Summary ---
Author Organization Healthcare Address [address] [place] [address] Care Team Providers Care Mattress Inspector Name Role Phone Ceasar Myles MD Primary Care Provider [phone] Encounter Details Date Type Department Care Team ([facility] st Contact Info) Description 07/12/2024 Orders Only External Location [address] [place] [address] Provider, External Social History Tobacco Use Types [...] Associated Diagnosis Comments CT OUTSIDE IMAGES 07/12/2024 1:20 PM EDT documented in this encounter Results * CT OUTSIDE IMAGES (07/12/2024 1:20 PM EDT) Anatomical Region Laterality Modality Computed Tomogra phy 07/12/2024 1:20 PM EDT External Provider IMG CT PROCEDURES Final Result documented in this encounter Visit Diagnoses Not on filedocumented in this encounter Additional Health Concerns Infection Onset Date Last Indicated Resolved Time Respiratory Rule-Out 07/31/2024 07/31/2024 024 6:37 PM EDT documented as of this encounter Care Teams Mattress Inspector Relationship Specialty Start Date End Date Ceasar Myles MD [address] [place] [address] PCP - General 06/23/24 documented as of this encounter
--- NOTE | 2025-06-08 07:30 | CT_ITS ---
FINAL REPORT CLINICAL HISTORY: lung cancer screening current smoker 1ppd x45 years COMPARISON: None FINDINGS: CT CHEST LOW DOSE SCREENING HISTORY: Screening exam for lung cancer. DOSE: CTDI vol: 2.90 mGy, DLP: 101.86 mGy*cm TECHNIQUE: Axial CT without IV contrast administration using low dose protocol. This study was performed with techniques to keep radiation doses as low as reasonably achievable, (ALARA). Individualized dose reduction techniques using automated exposure control or adjustment of mA and/or kV according to the patient's size were employed. No acute lung disease is present. There are innumerable pulmonary nodules measuring 4 mm or less. The vast majority are calcified and compatible with granulomas. No dominant noncalcified lung lesion identified. No pleural or pericardial effusion is seen. No adenopathy or mass lesion is present. 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 LUNG RADS CATEGORY 2 RECOMMENDATION: 12 month LDCT follow up Reviewed, Interpreted and Dictated by Andrew Acuna MD Transcribed by Sarika Mahajan Authenticated and [facility]
--- NOTE | 2025-06-08 08:00 | CT_ITS ---
FINAL REPORT TECHNIQUE: Axial CT of the abdomen and pelvis, without and with IV contrast. This study was performed with techniques to keep radiation doses as low as reasonably achievable, (ALARA). Individualized dose reduction techniques using automated exposure control or adjustment of mA and/or kV according to the patient''s size were employed. CLINICAL HISTORY: fistula/abdominal pain COMPARISON: 02/17/2025, 07/15/2024 FINDINGS: Assessment for fistula is significantly suboptimal due to lack of oral contrast. Abdomen: Lung bases are clear. Liver has an unremarkable CT appearance. 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 Remaining solid abdominal organs and gallbladder are normal. There is no evidence of bowel obstruction. There are multiple small upper abdominal wall hernias. No air or fluid is seen within the abdominal wall to indicate fistulous tract. There is no intra-abdominal abscess. Precontrast imaging shows no renal stone disease. Pelvis: Postoperative changes are seen of the distal small bowel within the right lower quadrant. Urinary bladder and prostate are unremarkable. There is scarring at the level of the umbilicus. Appendix is not identified. Postcontrast imaging of the kidneys shows no mass or obstruction. IMPRESSION: No obvious enterocutaneous fistula. Although, there is significantly decreased exam sensitivity without the use of oral contrast. No evidence of bowel obstruction, intra-abdominal inflammatory change or abscess. Reviewed, Interpreted and Dictated by Andrew Acuna MD Transcribed by Kristin Gudino Authenticated and . [facility]
[2025-06-08 08:05] LABS: Blood Urea Nitrogen 20 mg/dl (9-20); Creatinine,Serum 0.80 mg/dl (0.66-1.25); Estimated Glomerular Filt Rate 99 ml/min (>60); GFR (African American) 119 ML/MIN (>60)
[2025-06-08] MEDS: IOPAMIDOL-370 (76%);100ML BOTTLE 75 ML IV (09:31)
[2025-06-08] MEDS: SODIUM CHLORIDE 0.9% 10ML SYR (RAD ONLY) 10 ML IV (09:31)
== END 2025-06-08 23:59 | disposition home or self-care (01) ==
LOC: RAD 07:16
PROVIDERS: PCP Family Medicine; Visit Provider Family Medicine
DX: R93.5 Abnormal findings on diagnostic imaging of other abdominal regions, including retroperitoneum (principal); R91.8 Other nonspecific abnormal finding of lung field; F17.200 Nicotine dependence, unspecified, uncomplicated; Z12.2 Encounter for screening for malignant neoplasm of respiratory organs; R10.9 Unspecified abdominal pain
CPT/HCPCS: 36415; 71271; 74178; 82565; 84520; Q9967

== ENCOUNTER 2025-07-08 09:34 | Inpatient (IN) | payer MEDICAID, SELFPAY ==
[2025-07-08] VITALS (27 sets, daily range): BP systolic 120–162; BP diastolic 57–86; PULSE 43–74; RESP 10–20; TEMP 36.7–37.1; O2SAT 93–98; BMI 27.2
--- NOTE | 2025-07-08 09:32 | ECG_ITS ---
APPROVED REPORT Exam: Resting ECG HR:56 bpm ECG Measurements Heart Rate 56 AXES [place] 202 P 59 QRSd 88 QRS 74 QT 409 T 57 QTc 401 Conclusion Sinus bradycardia without acute ST or T wave changes concerning for ischemia Electronically signed by : Gricelda Adorno, 07/14/2025 00:13:56
--- NOTE | 2025-07-08 09:52 | XR_ITS ---
FINAL REPORT CLINICAL HISTORY: chest pain COMPARISON: Low-dose CT 06/08/2025 FINDINGS: Chest 2 views No acute pulmonary density is evident. There is no evidence of effusion or other pleural disease. Multiple tiny calcified granulomas are identified. The mediastinum has a normal appearance. The cardiac silhouette is unremarkable. IMPRESSION: No acute cardiopulmonary process. Reviewed, Interpreted and Dictated by Andrew Acuna MD Transcribed by Namita Richard Authenticated and [facility]
--- OUTSIDE RECORDS SUMMARY | 2025-07-08 10:00 | XMS_ITS | Encounter Summary ---
Author Organization Healthcare Address [address] [place] [address] Care Team Providers Care Assembly Machine Operator Name Role Phone Ceasar Myles MD Primary Care Provider [phone] Encounter Details Date Type Department Care Team ([facility] st Contact Info) Description 07/02/2024 Orders Only External Location [address] [place] [address] Provider, External Social History Tobacco Use Types [...] documented as of this encounter Care Teams Assembly Machine Operator Relationship Specialty Start Date End Date Ceasar Myles MD [address] [place] [address] PCP - General 06/23/24 documented as of this encounter
--- OUTSIDE RECORDS SUMMARY | 2025-07-08 10:00 | XMS_ITS | Encounter Summary ---
Author Organization Healthcare Address [address] [place] [address] Care Team Providers Care Freight Car Inspector Name Role Phone Ceasar Myles MD Primary Care Provider [phone] Encounter Details Date Type Department Care Team ([facility] st Contact Info) Description 07/02/2024 Orders Only External Location [address] [place] [address] Jose Antonio Nation MD [address] [place], [place] [id number] Social History Tobacco Use Types Packs/Day Years [...] documented as of this encounter Care Teams Freight Car Inspector Relationship Specialty Start Date End Date Ceasar Myles MD [address] [place], [place] [address] PCP - General 06/23/24 documented as of this encounter
--- OUTSIDE RECORDS SUMMARY | 2025-07-08 10:00 | XMS_ITS | Encounter Summary ---
Author Organization Healthcare Address [address] [place] [address] Care Team Providers Care Rim Buster Name Role Phone Ceasar Myles MD Primary Care Provider [phone] Encounter Details Date Type Department Care Team ([facility] st Contact Info) Description 07/04/2024 Orders Only External Location [address] [place] [address] Jose Antonio Nation MD [address] [place], [place] [id number] Social History Tobacco Use Types Packs/Day Years [...] documented as of this encounter Care Teams Rim Buster Relationship Specialty Start Date End Date Ceasar Myles MD [address] [place], [place] [phone] PCP - General 06/23/24 documented as of this encounter
--- OUTSIDE RECORDS SUMMARY | 2025-07-08 10:00 | XMS_ITS | Encounter Summary ---
Author Organization Healthcare Address [address] [place] [address] Care Team Providers Care Data Software Engineer Name Role Phone Ceasar Myles MD Primary Care Provider [phone] Encounter Details Date Type Department Care Team ([facility] st Contact Info) Description 06/29/2024 Orders Only External Location [address] [place] [address] Provider, External Social History Tobacco Use Types [...] documented as of this encounter Care Teams Data Software Engineer Relationship Specialty Start Date End Date Ceasar Myles MD [address] [place] [address] PCP - General 06/23/24 documented as of this encounter
--- OUTSIDE RECORDS SUMMARY | 2025-07-08 10:00 | XMS_ITS | Encounter Summary ---
Author Organization Healthcare Address [address] [place] [address] Care Team Providers Care President [place] [employer] Name Role Phone Ceasar Myles MD Primary Care Provider [phone] Encounter Details Date Type Department Care Team ([facility] st Contact Info) Description 06/17/2024 Orders Only External Location [address] [place] [address] Provider, External Social History Tobacco Use Types [...] documented as of this encounter Care Teams President [place] Relationship Specialty Start Date End Date Ceasar Myles MD [address] [place] [address] PCP - General 06/23/24 documented as of this encounter
--- OUTSIDE RECORDS SUMMARY | 2025-07-08 10:00 | XMS_ITS | Encounter Summary ---
Author Organization Healthcare Address [address] [place] [address] Care Team Providers Care Solar Sales Assessor Name Role Phone Ceasar Myles MD Primary Care Provider Encounter Details Date Type Department Care Team ([facility] st Contact Info) Description 06/28/2024 Orders Only External Location [address] [place] [address] Provider, External Social History Tobacco Use Types [...] documented as of this encounter Care Teams Solar Sales Assessor Relationship Specialty Start Date End Date Ceasar Myles MD [address] [place] [address] PCP - General 06/23/24 documented as of this encounter
--- OUTSIDE RECORDS SUMMARY | 2025-07-08 10:00 | XMS_ITS | Clinical Summary ---
Author Organization [facility] Address [address] [place] [address] Care Team Providers Care First Assistant Name Role Phone Ceasar Myles MD Primary Care Provider [phone] Allergies Active Allergy Reactions Criticality Noted Date [...] place to sleep or slept in a usp (including now)? No 08/02/2024 Utilities Answer Date [...] Last Done Comments [facility]-/Child/Adol SDOH Screenings 1965 [id number] Vaccine (#1) 1969 [facility]-Pneumococcal Vaccine: 50+ Years [...] Patricia Harris CRNA, Suzie Henry CRNA Endo Berry Picker Machine Operator Noemi Roland MD Proceduralist Preprocedure A history [...] of bowel preparation was evaluated using the Lincoln Bowel Preparation Scale with scores of: right [...] HIV 1/2 Differentiation (07/31/2024 3:15 PM EDT) [facility] HIV 1 & 2 Antibody/Antigen Screen Non Reactive Non Reactive 07/31/2024 4:27 PM EDT [facility] Comment:Screening for HIV 1 & 2 antibodies, and P24 antigen is NONREACTIVE. No confirmatory testing is required. Blood Venous blood specimen / Unknown Venipuncture / Unknown 07/31/2024 3:15 PM EDT 07/31/2024 3:46 PM EDT Nixon Romero MD LAB BLOOD ORDERABLES Final Res ult Performing Organization Address City/[facility] Co de Phone Number [email or web address] [address] [place] [address] * Hepatitis C Antibody - ED (07/31/2024 3:15 PM EDT) [facility] Hepatitis C Antibody Negative Negative 07/31/2024 4:22 PM EDT LAB Blood Venous blood specimen / Unknown Venipuncture / Unknown 07/31/2024 3:15 PM EDT 07/31/2024 3:43 PM EDT Nixon Romero MD LAB BLOOD ORDERABLES Final Res ult Performing Organization Address City/State/[facility] Co de Phone Number LAB [address] [place] [address] from Last 3 Months or Most Recently [...] Patient has decision-making capacity? Yes Care Teams First Assistant Relationship Specialty Start Date End Date Ceasar Myles MD [facility] [place] [address] PCP - General 06/23/24
--- OUTSIDE RECORDS SUMMARY | 2025-07-08 10:00 | XMS_ITS | Encounter Summary ---
Author Organization Healthcare Address [address] [place] [address] Care Team Providers Care Dynamite Packing Machine Operator Name Role Phone Ceasar Myles MD Primary Care Provider Encounter Details Date Type Department Care Team ([facility] st Contact Info) Description 07/06/2024 Orders Only External Location [address] [place] [address] Jose Antonio Nation MD [address] [place], [place] [id number] Social History Tobacco Use Types Packs/Day Years [...] documented as of this encounter Care Teams Dynamite Packing Machine Operator Relationship Specialty Start Date End Date Ceasar Myles MD [address] [place], [place] [phone] PCP - General 06/23/24 documented as of this encounter
--- OUTSIDE RECORDS SUMMARY | 2025-07-08 10:00 | XMS_ITS | Encounter Summary ---
Author Organization Healthcare Address [address] [place] [address] Care Team Providers Care Motion Picture Operator Name Role Phone Ceasar Myles MD Primary Care Provider [phone] Encounter Details Date Type Department Care Team ([facility] st Contact Info) Description 07/04/2024 Orders Only External Location [address] [place] [address] Jose Antonio Nation MD [address] [place], [place] [id number] Social History Tobacco Use Types Packs/Day Years [...] documented as of this encounter Care Teams Motion Picture Operator Relationship Specialty Start Date End Date Ceasar Myles MD [facility] [place] [address] PCP - General 06/23/24 documented as of this encounter
--- OUTSIDE RECORDS SUMMARY | 2025-07-08 10:00 | XMS_ITS | Encounter Summary ---
Author Organization Healthcare Address [address] [place] [address] Care Team Providers Care Duct Layer Supervisor Name Role Phone Ceasar Myles MD Primary Care Provider [phone] Encounter Details Date Type Department Care Team ([facility] st Contact Info) Description 07/12/2024 Orders Only External Location [address] [place] [address] Provider, External Social History Tobacco Use Types [...] documented as of this encounter Care Teams Duct Layer Supervisor Relationship Specialty Start Date End Date Ceasar Myles MD [address] [place] [address] PCP - General 06/23/24 documented as of this encounter
--- OUTSIDE RECORDS SUMMARY | 2025-07-08 10:00 | XMS_ITS | Encounter Summary ---
Author Organization Healthcare Address [address] [place] [address] Care Team Providers Care Photo Graphics Librarian Name Role Phone Ceasar Myles MD Primary Care Provider [phone] Encounter Details Date Type Department Care Team ([facility] st Contact Info) Description 07/02/2024 Orders Only External Location [address] [place] [address] Provider, External Social History Tobacco Use Types [...] documented as of this encounter Care Teams Photo Graphics Librarian Relationship Specialty Start Date End Date Ceasar Myles MD [address] [place] [address] PCP - General 06/23/24 documented as of this encounter
--- OUTSIDE RECORDS SUMMARY | 2025-07-08 10:00 | XMS_ITS | Encounter Summary ---
Author Organization Healthcare Address [address] [place] [address] Care Team Providers Care City Detective Name Role Phone Ceasar Myles MD Primary Care Provider [phone] Encounter Details Date Type Department Care Team ([facility] st Contact Info) Description 06/17/2024 Orders Only External Location [address] [place] [address] Provider, External Social History Tobacco Use Types [...] documented as of this encounter Care Teams City Detective Relationship Specialty Start Date End Date Ceasar Myles MD [address] [place] [address] PCP - General 06/23/24 documented as of this encounter
--- OUTSIDE RECORDS SUMMARY | 2025-07-08 10:00 | XMS_ITS | Clinical Summary ---
Author Organization [facility] Address [address] [place] [address] Phone Care Team Providers Care Data Collection Interviewer Name Role Phone Ceasar Myles MD Primary Care Provider [phone] Allergies No known active allergies Medications fluoxetine [...] patient's age to complete this topic Insurance [facility] [id number] Care Teams Data Collection Interviewer Relationship Specialty Start Date End Date Ceasar Myles MD PCP - General 05/01/10
--- OUTSIDE RECORDS SUMMARY | 2025-07-08 10:00 | XMS_ITS | Encounter Summary ---
Author Organization Healthcare Address [address] [place] [address] Care Team Providers Care Android Developer Name Role Phone Ceasar Myles MD Primary Care Provider Encounter Details Date Type Department Care Team ([facility] st Contact Info) Description 07/12/2024 Orders Only External Location [address] [place] [address] Jose Antonio Nation MD [address] [place], [place] [phone] Social History Tobacco Use Types Packs/Day Years [...] documented as of this encounter Care Teams Android Developer Relationship Specialty Start Date End Date Ceasar Myles MD [address] [place], [place] [id number] PCP - General 06/23/24 documented as of this encounter
--- OUTSIDE RECORDS SUMMARY | 2025-07-08 10:00 | XMS_ITS | Encounter Summary ---
Author Organization Healthcare Address [address] [place] [address] Care Team Providers Care Harvesting Contractor Name Role Phone Ceasar Myles MD Primary Care Provider [phone] Encounter Details Date Type Department Care Team ([facility] st Contact Info) Description 07/04/2024 Orders Only External Location [address] [place] [address] Jose Antonio Nation MD [address] [place], [place] [phone] Social History Tobacco Use Types Packs/Day Years [...] documented as of this encounter Care Teams Harvesting Contractor Relationship Specialty Start Date End Date Ceasar Myles MD [address] [place], [place] [phone] PCP - General 06/23/24 documented as of this encounter
--- OUTSIDE RECORDS SUMMARY | 2025-07-08 10:00 | XMS_ITS | Encounter Summary ---
Author Organization Healthcare Address [address] [place] [address] Care Team Providers Care Bladder Trimmer Name Role Phone Ceasar Myles MD Primary Care Provider [phone] Encounter Details Date Type Department Care Team ([facility] st Contact Info) Description 07/03/2024 Orders Only External Location [address] [place] [address] Jose Antonio Nation MD [address] [place], [place] [phone] Social History Tobacco Use Types Packs/Day Years [...] documented as of this encounter Care Teams Bladder Trimmer Relationship Specialty Start Date End Date Ceasar Myles MD [facility] [place] [address] PCP - General 06/23/24 documented as of this encounter
[2025-07-08 10:01] LABS: Coronavirus 19, PCR Not Detected (NotDetected); Influenza A, PCR Not Detected (NotDetected); Influenza B, PCR Not Detected (NotDetected)
--- NOTE | 2025-07-08 10:05 | HMH.EDGENADL ---
Discharge Plan Disposition Patient Disposition: Admitted Condition: Fair Clinical Impressions Clinical Impression: Non-ST elevation myocardial infarction (NSTEMI), Chest pain Discharge ED Provider: Gricelda Adorno Adult HPI General Chief complaint: Chest Pain Stated complaint: chest pain Time Seen by Provider: 07/08/25 09:37 Mode of Arrival: Ambulatory Source of Information: Patient and Spouse Description of Symptoms (Recalled from ER Triage Doc. by RN): Patient presents to ED for chest heaviness. States he feels like his arms and head feel heavy as well. Has hx of one cardiac stent placed 2 years ago. History of Present Illness HPI narrative: Patient is a 59-year-old gentleman with a past medical history of coronary artery disease with a history of 1 previous stent 2 years ago placed in [place] who presented to the emergency department with chest heaviness, arm heaviness as well as mild headache. Patient states that he woke up on Friday and had chest heaviness and was seen in [place] the patient states that he was admitted and he signed out AMA given that they were not doing anything for his workup. Patient states that he took it easy yesterday given that he was given heparin, and then today while mowing the lawn he had exertional chest pain again. Patient states that his arms feel heavy but the chest pain does not radiate. Patient states that the pain feels similar to his previous ND. Patient states that he has had a mild headache as well for the last couple days. Patient states that he took aspirin and nitroglycerin prior to arrival that did improve his symptoms. Patient denies any recent upper respiratory symptoms. Patient denies any shortness of breath. Patient denies any abdominal pain nausea vomiting or diarrhea. Related Data Home Medications ?Medication ?Instructions ?Recorded ?Confirmed nitroglycerin 0.4 mg sublingual 0.4 mg sublingual Q5M PRN Chest 07/08/25 07/08/25 tablet Pain oxycodone 5 mg tablet 5 mg PO DAILYP PRN Severe Pain 07/08/25 07/08/25 (Scale Score 7-10) pantoprazole 40 mg tablet,delayed 40 mg PO DAILY 07/08/25 07/08/25 release tamsulosin 0.4 mg capsule (Flomax) 0.4 mg PO HS 07/08/25 07/08/25 Previous Rx's ?Medication ?Instructions ?Recorded atorvastatin 40 mg tablet 40 mg PO HS #90 tabs 05/30/25 fluoxetine 20 mg capsule 20 mg PO DAILY #90 caps 05/30/25 aspirin 81 mg tablet,delayed 81 mg PO DAILY 30 days #30 tabs 07/11/25 release clopidogrel 75 mg tablet 75 mg PO DAILY 30 days #30 tabs 07/11/25 nicotine 21 mg/24 hr daily 1 patch transdermal DAILY #28 ea 07/11/25 transdermal patch Allergies Allergy/AdvReac Type Severity Reaction Status Date / Time morphine AdvReac Vomiting Verified 05/30/25 12:54 [facility] Disclaimer: The information contained in this section may have been updated after the patient was seen, as this information can be updated by other users. Medical History (Updated 07/11/25 @ 12:10 by Alma Humphrey APRN) Hyperlipidemia Angina pectoris Bowel obstruction History of heart attack Heart attack Depression Erosive osteoarthritis of multiple sites Surgical History History of bowel resection S/P exploratory laparotomy Hx of appendectomy Family History Other Diabetes Social History (Updated 07/08/25 @ 14:27 by Ivonne Peterson RN) Smoking Status: Current every day smoker alcohol intake: never substance use type: denies use current occupational status: employed Travel in the last 8 weeks?: None household members: spouse and none housing: house Have you lived/traveled outside [place] in past 30 days?: No Contact w/someone who lives/traveled outside US past 30 days?: No Exposure to someone with infectious disease in past 14 days?: No Do you have a fever (greater than 100.4 F or 38 C)?: No Have you tested positive for COVID-19?: No Exposed to someone with COVID-19 in past 14 days?: No Do you have a sore throat?: No Do you have a cough?: No Do you have any weakness?: No Are you experiencing any nausea/vomitting?: No Do you have any diarrhea?: No Are you experiencing any unusual bleeding?: No Do you have any muscle aches/pain?: No Do you have any abdominal pain?: No Are you experiencing loss of taste or smell?: No Other Medical History Have you received the Flu Vaccine for this season: No Have you received the Pneumonia Vaccine: No ROS Obtained: Yes All systems reviewed & no additional complaints except as documented and Yes Systems reviewed as appropriate & no additional complaints except as documented Physical Exam General General appearance: alert and in no apparent distress Head Head exam: atraumatic, normocephalic and normal inspection Eye Eye exam: Present normal appearance, PERRL and EOMI; Absent scleral icterus ENT ENT exam: Present normal exam and normal external ear exam Neck Neck exam: Present normal inspection and full ROM Chest Chest inspection: Present normal inspection and symmetric chest wall rise Respiratory Respiratory exam: Present normal lung sounds bilaterally; Absent respiratory distress or wheezes Cardiovascular Cardiovascular exam: Present regular rate, normal rhythm and normal heart sounds Abdominal Exam Abdominal exam: Present soft and distention; Absent tenderness, guarding or rebound Extremities Exam Extremities exam: Present normal inspection and full ROM Back Exam Back exam: Present normal inspection and full ROM Neurological Exam Neurological exam: Present alert and oriented X3 Psychiatric Psychiatric exam: Present normal affect and normal mood Skin Skin exam: Present warm and dry Medical Decision Making Medical Records Medical records reviewed: Yes I reviewed the patient's medical records. Screening: Per USPSTF and CDC recommendations, given the prevalence of disease in our region, it is our hospital?s policy to screen for HIV and viral Hepatitis for all patients aged 18 and over and those with ongoing risk factors. [place] Inquiry Pt receiving controlled substance: No Vital Signs: 07/08/25 09:36 07/08/25 09:36 07/08/25 10:10 Temperature 98.4 F 98.4 F Temperature Source Oral Oral Pulse Rate 60 48 L Pulse Rate [Right] 60 Respiratory Rate 18 18 16 Blood Pressure 146/79 H 138/67 Blood Pressure [Right Arm] 146/79 H Blood Pressure Mean Blood Pressure Mean [Right Arm] 101 02 Sat by Pulse Oximetry 97 97 96 Oxygen Delivery Method Room Air Room Air Room Air 07/08/25 10:21 07/08/25 10:31 07/08/25 10:41 Temperature Temperature Source Pulse Rate 50 L 51 L 74 Pulse Rate [Right] Respiratory Rate 19 17 18 Blood Pressure 137/64 122/57 L 121/62 Blood Pressure [Right Arm] Blood Pressure Mean Blood Pressure Mean [Right Arm] 02 Sat by Pulse Oximetry 95 96 96 Oxygen Delivery Method Room Air 07/08/25 10:45 07/08/25 10:51 07/08/25 11:00 Temperature Temperature Source Pulse Rate 48 L 50 L 48 L Pulse Rate [Right] Respiratory Rate 12 16 Blood Pressure 130/64 120/67 Blood Pressure [Right Arm] Blood Pressure Mean 79 Blood Pressure Mean [Right Arm] 02 Sat by Pulse Oximetry 95 95 96 Oxygen Delivery Method 07/08/25 11:10 07/08/25 11:17 07/08/25 11:21 Temperature Temperature Source Pulse Rate 51 L 56 L 46 L Pulse Rate [Right] Respiratory Rate 16 20 Blood Pressure 128/61 128/80 132/68 Blood Pressure [Right Arm] Blood Pressure Mean Blood Pressure Mean [Right Arm] 02 Sat by Pulse Oximetry 96 96 95 Oxygen Delivery Method 07/08/25 11:30 07/08/25 11:41 07/08/25 11:51 Temperature Temperature Source Pulse Rate 47 L 45 L 48 L Pulse Rate [Right] Respiratory Rate 15 16 17 Blood Pressure 125/71 127/67 122/68 Blood Pressure [Right Arm] Blood Pressure Mean Blood Pressure Mean [Right Arm] 02 Sat by Pulse Oximetry 96 95 97 Oxygen Delivery Method 07/08/25 12:01 07/08/25 12:11 07/08/25 12:21 Temperature Temperature Source Pulse Rate 47 L 48 L 45 L Pulse Rate [Right] Respiratory Rate 16 10 L 15 Blood Pressure 120/63 144/73 H 136/86 Blood Pressure [Right Arm] Blood Pressure Mean Blood Pressure Mean [Right Arm] 02 Sat by Pulse Oximetry 97 93 L 96 Oxygen Delivery Method 07/08/25 12:31 07/08/25 12:41 07/08/25 12:51 Temperature Temperature Source Pulse Rate 43 L 47 L 51 L Pulse Rate [Right] Respiratory Rate 13 18 18 Blood Pressure 158/75 H 131/80 143/79 H Blood Pressure [Right Arm] Blood Pressure Mean Blood Pressure Mean [Right Arm] 02 Sat by Pulse Oximetry 97 98 95 Oxygen Delivery Method 07/08/25 13:01 07/08/25 13:11 07/08/25 13:34 Temperature Temperature Source Pulse Rate 43 L 47 L Pulse Rate [Right] Respiratory Rate 14 15 Blood Pressure 145/71 H 151/77 H Blood Pressure [Right Arm] Blood Pressure Mean Blood Pressure Mean [Right Arm] 02 Sat by Pulse Oximetry 95 97 Oxygen Delivery Method Room Air 07/08/25 14:03 Temperature 98.7 F Temperature Source Oral Pulse Rate 56 L Pulse Rate [Right] Respiratory Rate 16 Blood Pressure 134/76 Blood Pressure [Right Arm] Blood Pressure Mean Blood Pressure Mean [Right Arm] 02 Sat by Pulse Oximetry Oxygen Delivery Method Room Air Lab Data Lab results reviewed: Yes I reviewed the patient's lab results. Lab Results 07/08/25 09:52: SARS-CoV-2 (PCR) Not detected, Influenza Type A (PCR) Not detected, Influenza Type B (PCR) Not detected, RSV (PCR) Not detected, Rhinovirus (PCR) Not detected 07/08/25 10:15: WBC 5.1, RBC 4.76, Hgb 14.5, Hct 42.8, MCV 89.9, MCH 30.5, MCHC 33.9, RDW 12.8, Plt Count 221, MPV 9.8, Neut % (Auto) 68.6, Lymph % (Auto) 25.1, [place] % (Auto) 5.3, Eos % (Auto) 0.6, Baso % (Auto) 0.2, Neut # (Auto) 3.5, Lymph # (Auto) 1.3, [place] # (Auto) 0.3, Eos # (Auto) 0.0, Baso # (Auto) 0.0, D-Dimer 0.70 H, Sodium 139, Potassium 3.6, Chloride 105, Carbon Dioxide 30, Anion Gap 7.6, BUN 11, Creatinine 0.60 L, Estimated Creat Clear 160, Estimated GFR 137, Est GFR ( Amer) 166, Glucose 95, Calcium 9.2, Magnesium 1.9, Total Bilirubin 0.2, AST 26, ALT 21, Alkaline Phosphatase 84, Troponin I 0.06 H, NT-Pro-B Natriuret Pep 348 H, Total Protein 6.6, Albumin 4.1, Globulin 2.5, Albumin/Globulin Ratio 1.6 07/08/25 12:55: Troponin I 0.06 H 07/11/25 06:25 07/11/25 06:25 Orders (Tests/Meds): ED MEDICATIONS Generic Name Dose Route Start Last Admin Trade Name Freq PRN Reason Stop Dose Admin Acetaminophen 650 mg 07/08/25 18:11 Acetaminophen 325mg Tab PO 08/07/25 18:10 Q4HP PRN Fever or Mild Pain (1-3) Acetaminophen 650 mg 07/11/25 16:03 Acetaminophen 325mg Tab PO 08/10/25 16:02 Q4HP PRN Fever or Mild Pain (1-3) Hydrocodone Bitart/Acetaminophen 1 tab 07/11/25 16:03 Hydrocodone/Apap 5/325 Mg Tablet PO 08/10/25 16:02 Q4HP PRN Moderate Pain (4-6) Hydrocodone Bitart/Acetaminophen 2 tab 07/11/25 16:03 Hydrocodone/Apap 5/325 Mg Tablet PO 08/10/25 16:02 Q4HP PRN Severe Pain (7-10) Aspirin 81 mg 07/09/25 09:00 07/11/25 09:32 Aspirin Ec 81mg Tablet PO 08/08/25 08:59 81 mg DAILY SHARON Administration Atorvastatin Calcium 40 mg 07/08/25 21:00 07/10/25 20:05 Atorvastatin 40mg Tablet PO 08/07/25 20:59 40 mg HS SHARON Administration Clopidogrel Bisulfate 75 mg 07/09/25 09:00 07/11/25 09:32 Clopidogrel 75mg Tab PO 08/08/25 08:59 75 mg DAILY SHARON Administration Diazepam 5 mg 07/11/25 09:18 Diazepam 5mg Tablet PO 07/11/25 21:18 ONCE PRN Anxiety Diazepam 5 mg 07/11/25 10:28 Diazepam 5mg Tablet PO 07/11/25 22:28 ONCE PRN Anxiety Fentanyl Citrate 50 mcg 07/11/25 10:28 07/11/25 15:22 Fentanyl 100mcg/2ml Vial IV 07/11/25 22:28 100 mcg Q3MINP PRN Administration Sedation Fentanyl Citrate 25 mcg 07/11/25 10:28 Fentanyl 100mcg/2ml Vial IV 07/11/25 22:28 Q3MINP PRN Sedation Flumazenil 0.2 mg 07/11/25 10:28 Flumazenil 0.1mg/Ml 5ml Vial IV 07/11/25 22:28 NEEDED PRN Sedation Fluoxetine HCl 20 mg 07/09/25 14:00 07/11/25 09:33 Fluoxetine 20mg Capsule PO 08/08/25 13:59 20 mg DAILY SHARON Administration Sodium Chloride 1,000 mls @ 25 mls/hr 07/11/25 10:30 07/11/25 15:21 Sod Chloride 0.9% 500ml Bag IV 07/12/25 10:28 25 mls/hr .Q25H SHARON Administration Irbesartan 75 mg 07/11/25 12:15 07/11/25 12:43 Irbesartan 75mg Tablet PO 08/10/25 12:14 75 mg DAILY SHARON Administration Lorazepam 1 mg 07/11/25 09:18 Lorazepam 2mg/Ml Vial IV 07/11/25 21:18 ONCE PRN Anxiety Lorazepam 1 mg 07/11/25 10:28 Lorazepam 2mg/Ml Vial IV 07/11/25 22:28 ONCE PRN Anxiety Midazolam HCl 1 mg 07/11/25 10:28 Midazolam 2mg/2ml Vial IV 07/11/25 22:28 Q3MINP PRN Sedation Midazolam HCl 1 mg 07/11/25 10:28 07/11/25 15:22 Midazolam Hcl 1mg/Ml 5ml Vial IV 07/11/25 22:28 5 mg Q3MINP PRN Administration Sedation Miscellaneous 1 each 07/11/25 16:03 Consider Pt For Dual Antiplatelet Therapy At Discharge-Stent NOTAPPLIC 08/10/25 16:02 NEEDED PRN Reminder for s/p stent Naloxone HCl 0.4 mg 07/11/25 10:28 Naloxone 0.4mg/Ml Vial IV 07/11/25 22:28 Q5MINP PRN Decreased Respirations Nitroglycerin 0.4 mg 07/11/25 16:03 Nitroglycerin 0.4mg Sl Tablet SL 08/10/25 16:02 Q5MINP PRN Chest Pain Ondansetron HCl 4 mg 07/08/25 18:12 Ondansetron 4mg/2ml Vial IV 08/07/25 18:11 Q6HP PRN Nausea Ondansetron HCl 4 mg 07/11/25 10:28 Ondansetron 4mg/2ml Vial IV 07/11/25 22:28 NEEDED PRN Nausea Oxycodone HCl 5 mg 07/09/25 13:51 Oxycodone 5mg Immediate Release Tablet PO 08/08/25 13:50 DAILYP PRN Severe Pain (Scale Score 7-10) Pantoprazole Sodium 40 mg 07/09/25 09:00 07/11/25 09:33 Pantoprazole 40mg Tablet PO 08/08/25 08:59 40 mg DAILY SHARON Administration Promethazine HCl 25 mg 07/11/25 10:28 Promethazine Hcl 25mg/Ml 1ml Vial IV 07/11/25 22:28 NEEDED PRN Nausea And Vomiting Sodium Chloride 10 ml 07/09/25 11:41 Sodium Chloride 0.9% 10ml Flush Syringe IV 08/08/25 11:40 NEEDED PRN Maintain IV Site Sodium Chloride 10 ml 07/11/25 09:18 Sodium Chloride 0.9% 10ml Vial IV 08/10/25 09:17 NEEDED PRN to Dilute Lorazepam inj Sodium Chloride 10 ml 07/11/25 10:28 Sodium Chloride 0.9% 10ml Flush Syringe IV 08/10/25 10:27 NEEDED PRN Maintain IV Site Sodium Chloride 10 ml 07/11/25 10:28 Sodium Chloride 0.9% 10ml Vial IV 08/10/25 10:27 NEEDED PRN to Dilute Lorazepam inj Tamsulosin HCl 0.4 mg 07/08/25 21:00 07/10/25 20:05 Tamsulosin 0.4mg Capsule PO 08/07/25 20:59 0.4 mg HS [facility] Administration Discontinued Medications Generic Name Dose Route Start Last Admin Trade Name Freq PRN Reason Stop Dose Admin Acetaminophen 1,000 mg 07/08/25 09:55 07/08/25 10:28 Acetaminophen 500mg Tab PO 07/08/25 09:56 1,000 mg ONCE ONE Administration Aspirin 325 mg 07/08/25 12:45 07/08/25 12:54 Aspirin 325mg Tablet PO 07/08/25 12:46 325 mg ONCE ONE Administration Atorvastatin Calcium 40 mg 07/08/25 21:00 07/08/25 20:10 Atorvastatin 40mg Tablet PO 08/07/25 20:59 40 mg HS SHARON Administration Diphenhydramine HCl 50 mg 07/11/25 09:18 07/11/25 15:19 Diphenhydramine 50mg/Ml Vial IV 07/11/25 09:19 50 mg ONCE ONE Administration Enoxaparin Sodium 85 mg 07/08/25 18:45 07/10/25 18:22 Enoxaparin 100mg/Ml Syringe 1 mg/kg (85 mg) 07/10/25 19:00 85 mg SUBCUT Administration Q12H [facility] Heparin Sodium (Porcine) 5,000 unit 07/11/25 10:28 07/11/25 15:20 Heparin 1,000 Units/Ml 10ml Vial (S[employer]er [employer]ctor) IV 07/11/25 14:28 8,800 unit NEEDED PRN Administration [employer] Heparin Sodium/Sodium Chloride 3,000 unit 07/11/25 10:28 07/11/25 15:20 Heparin 1,000 Units/500ml Ns (S[employer]er [employer]ctor) IV 07/11/25 10:29 3,000 unit ONCE ONE Administration Hydralazine HCl 20 mg 07/11/25 10:28 Hydralazine 20mg/Ml Vial IV 07/11/25 14:28 ONCE PRN sbp>160 Sodium Chloride 500 mls @ 999 mls/hr 07/08/25 09:55 07/08/25 10:32 Sod Chlor 0.9% 1000ml Bag IV 07/08/25 10:25 Not Given .Q31M ONE Sodium Chloride 500 mls @ 999 mls/hr 07/08/25 10:30 07/08/25 10:25 Sod Chloride 0.9% 500ml Bag IV 07/08/25 11:00 999 mls/hr .Q31M ONE Administration Adenosine 180 mg/ Sodium 90 mls @ 477.387 mls/hr 07/11/25 10:28 Chloride IV 07/11/25 14:28 ONCE PRN fractional flow reserve 180 MCG/KG/MIN Adenosine 90 mg/ Sodium 90 mls @ 954.774 mls/hr 07/11/25 10:28 Chloride IV 07/11/25 14:28 ONCE PRN fractional flow reserve 180 MCG/KG/MIN Iopamidol 90 ml 07/11/25 16:13 Iopamidol-370 (76%);100ml Bottle IV 07/11/25 16:14 ONCE ONE Labetalol HCl 20 mg 07/11/25 10:28 Labetalol 20mg/4ml Syringe IV 07/11/25 14:28 ONCE PRN sbp>160 Lidocaine HCl 10 ml 07/11/25 10:28 Lidocaine 1% 5ml Pf Vial IJ 07/11/25 10:29 ONCE ONE Lidocaine HCl 10 ml 07/11/25 10:28 07/11/25 15:21 Lidocaine 1% 10ml Mdv IJ 07/11/25 10:29 10 ml ONCE ONE Administration Nitroglycerin 0.4 mg 07/08/25 18:31 Nitroglycerin 0.4mg Sl Tablet SL 09/14/25 18:30 Q5M PRN Chest Pain Nitroglycerin 800 mcg 07/11/25 10:28 07/11/25 15:21 Nitroglycerin 800mcg/8ml Syr (S[employer]er Connector) IA 07/11/25 14:28 800 mcg NEEDED PRN Administration [employer] Caf[employer] Assistant Ondansetron HCl 4 mg 07/08/25 09:55 07/08/25 10:26 Ondansetron 4mg/2ml Vial IV 07/08/25 09:56 4 mg ONCE ONE Administration Protamine Sulfate 50 mg 07/11/25 10:28 Protamine Sulfate 50mg/5ml Vial (S[employer]er Connector) IV 07/11/25 14:28 ONCE PRN act>200 Verapamil HCl 2.5 mg 07/11/25 10:28 07/11/25 15:20 Verapamil 2.5mg/Ml 2ml Vial IV 07/11/25 10:29 2.5 mg ONCE ONE Administration ORDERS Category Date Time Status Cardiology Consult [Consult to Cardiology] [CONS] Cons 07/08/25 13:09 Active Routine CXR 2 view (NOT portable) [XR chest 2V] Stat Exams 07/08/25 09:52 Completed BNP [NT Pro Brain Natriuretic Pep.] Stat Lab 07/08/25 10:15 Completed CBC w/Auto Diff [Complete Blood Count Auto Diff] Stat Lab 07/08/25 10:15 Completed CMP [Comprehensive Metabolic Panel] Stat Lab 07/08/25 10:15 Completed D-Dimer Stat Lab 07/08/25 10:15 Completed MAG [Magnesium] Stat Lab 07/08/25 10:15 Completed Mini Respiratory Panel Stat Lab 07/08/25 09:52 Completed Trop I [Troponin I] Stat Lab 07/08/25 10:15 Completed Troponin I Q3H Lab 07/08/25 12:55 Completed Troponin I Q3H Lab 07/08/25 16:05 Completed CA echo doppler complete Stat Y 07/08/25 13:09 Completed Medical Decision Narrative: Patient is an otherwise healthy 59-year-old male with a past medical history of coronary artery disease with 1 stent placed 2 years ago who presents to the emergency department with chest heaviness, arm heaviness and headache. On arrival, patient was hemodynamically stable with unremarkable vital signs. Notably, patient was normotensive, not tachycardic, afebrile. Differential includes but not limited to: ACS/ND, arrhythmia, pneumonia, pleural effusion, pulmonary embolism, viral syndrome, amongst others. Patient's EKG was reviewed and interpreted by myself and showed sinus bradycardia at [address] or T wave changes concerning for ischemia. Chest x-ray was reviewed and interpreted by myself and showed no acute focal consolidation, pneumothorax, pleural effusion or other acute cardiopulmonary process. Patient's labs were reviewed and interpreted results: CBC showed leukocytosis, hemoglobin stable. CMP was unremarkable. D-dimer was mildly elevated at 0.7. However further criteria low concern for pulmonary embolism at this time. Initial troponin is elevated at 0.06. Given patient's clinical presentation with elevated troponin I felt the patient warranted admission for serial troponin's. I discussed the case with hospital medicine and patient was ultimately admitted to their service for further evaluation workup. Critical Care Critical Care Time Critical Care Time: No
[2025-07-08] MEDS: 0.9 % SODIUM CHLORIDE 500 ML 999 ML IV (10:25)
[2025-07-08] MEDS: ONDANSETRON 4MG/2ML VIAL 4 MG IV (10:26)
[2025-07-08] MEDS: ACETAMINOPHEN 500MG TAB 1000 MG PO (10:28)
[2025-07-08 10:31] LABS: Hematocrit 42.8 % (42.0-52.0); Hemoglobin 14.5 g/dL (14.1-18.0); Immature Granulocytes % 0.2 %; Mean Corpuscular HGB Conc 33.9 g/dL (31.8-35.4); Mean Corpuscular Hemoglobin 30.5 pg (27.0-31.2); Mean Corpuscular Volume 89.9 fl (80-94); Nucleated Red Blood Cells % 0 %; Platelet Count 221 K/mm3 (142-424); Red Blood Count 4.76 M/mm3 (4.60-6.20); Red Cell Distribution Width-SD 42.0 fL; White Blood Count 5.1 K/mm3 (4.8-10.8)
[2025-07-08 10:40] LABS: Alanine Aminotransferase 21 U/L (12-78); Albumin Level 4.1 g/dl (3.5-5.0); Albumin/Globulin Ratio 1.6 (1.1-1.8); Alkaline Phosphatase 84 U/L (38-126); Anion Gap 7.6 mEq/L (5-15); Aspartate Amino Transferase 26 U/L (17-59); Bilirubin,Total 0.2 mg/dl (0.2-1.3); Blood Urea Nitrogen 11 mg/dl (9-20); Calcium 9.2 mg/dl (8.4-10.2); Carbon Dioxide 30 mmol/L (22.0-30.0); Chloride 105 mmol/L (98-107); Creatinine Clearance Estimated 160 mL/min (50-200); Creatinine,Serum 0.60 mg/dl (0.66-1.25); Estimated Glomerular Filt Rate 137 ml/min (>60); GFR (African American) 166 ML/MIN (>60); Globulin 2.5 g/dL (1.3-3.2); Glucose 95 mg/dl (74-100); Magnesium 1.9 mg/dl (1.6-2.3); Potassium 3.6 mmoL/L (3.5-5.1); Sodium 139 mmol/L (136-145); Total Protein,Serum 6.6 g/dl (6.3-8.2)
[2025-07-08 10:44] LABS: D-Dimer 0.70 ug/mL (0.0-0.5)
[2025-07-08 10:53] LABS: NT Pro Brain Natriuretic Pep. 348 pg/mL (0-125); Troponin I 0.06 ng/ml (0.00-0.034)
--- NOTE | 2025-07-08 12:29 | ECG_ITS ---
APPROVED REPORT Exam: Resting ECG HR:41 bpm ECG Measurements Heart Rate 41 AXES MN 220 P 69 QRSd 89 QRS 76 QT 465 T 71 QTc 399 Conclusion SINUS BRADYCARDIA WITH FIRST DEGREE AV BLOCK ABNORMAL ECG UNCONFIRMED REPORT Electronically signed by : ABRAHAM SOLORZANO, 07/09/2025 06:55:16
[2025-07-08] MEDS: ASPIRIN 325MG TABLET 325 MG PO (12:54)
--- NOTE | 2025-07-08 13:09 | CA_ITS ---
APPROVED REPORT EXAM: Comprehensive 2D, Doppler, and color-flow Echocardiogram Solar Energy Engineer: Kaila Graham RT(R) Ht: 5 ft 10 in Wt: 190lbs BSA: 2.04 BP: 146/79 mmHg Indications: chest pain, CAD, smoker 2D Dimensions Left Atrium 3.44 cm M: 3.0 - 4.0 LA Volume 55.20 mL LVOT 2.07 cm (M/F) 1.5-2.5 LA Volume Index 27.06 mL/m2 (M/F) 16-34 EF AP4 43.90 % GL Strain -21.3 % M-Mode Dimensions RVDd 3.05 cm (0.9-2.6) LVDd 4.74 cm (3.5-5.7) Ao Diam 2.83 cm (2.0-3.7) LVDs 3.71 cm (3.5-5.7) IVSd 0.84 cm (0.6-1.1) PWd 0.80 cm (0.6-1.1) EF (Teich) 44.00% FS 21.70% EDV (Teich) 104.40 mL ESV (Teich) 58.50 mL LV Diastology E Decel Time 158 (160-240 msec) E/A Ratio 1.2 Mitral Valve MV E Max Mateo. 81.0 (40-130 cm/s) MV A Velocity 67.0 (40-130 cm/s) E/A Ratio 1.20 MV Decel. Time 158 (160-240 ms) Left Ventricle The left ventricle is normal size. Left ventricular systolic function is normal. The left ventricular ejection fraction is within the normal range. There is increased left ventricular wall thickness. There is mild hypokinesis of the anterior LV wall. The left ventricular diastolic function is normal. LVEF is 50-55% Right Ventricle The right ventricle is mildly dilated. The right ventricular systolic function is normal. Atria Left atrium is mildly dilated. Right atrium is mildly dilated. There is no color Doppler evidence of interatrial shunt. Aortic Valve The aortic valve is mildly thickened. There is no hemodynamically significant aortic valvular stenosis. Trace aortic regurgitation is present. Mitral Valve The mitral valve is normal in structure. No evidence of mitral valve stenosis. Mild mitral regurgitation is present. Tricuspid Valve The tricuspid valve leaflets are thin and pliable. Mild tricuspid regurgitation. RVSP is 20-25 mmHg. Pulmonic Valve The pulmonary valve is grossly normal in structure. Trace pulmonic valve regurgitation is present. Great Vessels The aortic root is normal in size. IVC is normal in size and collapses >50% with inspiration. Pericardium There is no pericardial effusion. Other Information Study Quality: Fair Conclusion Normal biventricular systolic function (LVEF 50-55%). Mild hypokinesis of the anterior LV wall. Mild RV dilation. Mild biatrial dilation. Mild MR, mild TR. Electronically signed by : Bethany Martins MD 07/09/2025 10:44:02
[2025-07-08 13:26] LABS: Troponin I 0.06 ng/ml (0.00-0.034)
--- NOTE | 2025-07-08 13:32 | HMH.PHAINT1 ---
Pharmacy Intervention Comments: MEDICATION RECONCILIATION COMPLETE USING EXTERNAL PHARMACY FILL HISTORY, RECENT CARDIOLOGY OFFICE VISIT NOTE, AND CRIS REPORT.
[2025-07-08 16:37] LABS: Troponin I 0.06 ng/ml (0.00-0.034)
--- NOTE | 2025-07-08 18:14 | EXP.HP ---
History of Present Illness *Admission Date: 07/08/25 *Reason for visit:: Chest heaviness *History of present illness: Rodolfo Up is a 59-year-old male with medical history significant for CAD with 1 stent, current tobacco smoker, anxiety/depression, GERD, BPH who presents with chest heaviness for 2 days. He states he was sitting and drinking coffee 2 days ago when he started to feel sudden onset left-sided chest heaviness with radiation to bilateral arms and left ear pain. He went to [facility] but left AMA after he states he was sitting there for more than 11 hours and got a heparin . He was chest pain-free yesterday, but this morning he again felt chest heaviness with similar radiation. He states he had similar symptoms several years ago when he had a heart attack and required 1 stent. Denies shortness of breath, fever/chills, abdominal pain. Workup in the ED significant for troponin 0.06, EKG without acute ischemic changes but did show sinus bradycardia which is chronic. CBC, CMP, CXR unremarkable. Case discussed ED provider and I made the decision to admit patient for NSTEMI. [facility] Disclaimer: The information contained in this section may have been updated after the patient was seen, as this information can be updated by other users. Medical History Bowel obstruction History of heart attack Heart attack Depression Erosive osteoarthritis of multiple sites Surgical History History of bowel resection S/P exploratory laparotomy Hx of appendectomy Family History Other Diabetes Social History (Updated 07/08/25 @ 14:27 by Ivonne Peterson RN) Smoking Status: Current every day smoker alcohol intake: never substance use type: denies use current occupational status: employed Travel in the last 8 weeks?: None household members: spouse and none housing: house Have you lived/traveled outside US in past 30 days?: No Contact w/someone who lives/traveled outside US past 30 days?: No Exposure to someone with infectious disease in past 14 days?: No Do you have a fever (greater than 100.4 F or 38 C)?: No Have you tested positive for COVID-19?: No Exposed to someone with COVID-19 in past 14 days?: No Do you have a sore throat?: No Do you have a cough?: No Do you have any weakness?: No Are you experiencing any nausea/vomitting?: No Do you have any diarrhea?: No Are you experiencing any unusual bleeding?: No Do you have any muscle aches/pain?: No Do you have any abdominal pain?: No Are you experiencing loss of taste or smell?: No Other Medical History Have you received the Flu Vaccine for this season: No Have you received the Pneumonia Vaccine: No Meds Home Medications and Allergies Home Medications ?Medication ?Instructions ?Recorded ?Confirmed ?Type atorvastatin 40 mg tablet 40 mg PO HS #90 tabs 05/30/25 07/08/25 Rx clopidogrel 75 mg tablet 75 mg PO DAILY #90 tabs 05/30/25 07/08/25 Rx fluoxetine 20 mg capsule 20 mg PO DAILY #90 caps 05/30/25 07/08/25 Rx nitroglycerin 0.4 mg sublingual 0.4 mg sublingual Q5M PRN Chest 07/08/25 07/08/25 History tablet Pain oxycodone 5 mg tablet 5 mg PO DAILYP PRN Severe Pain 07/08/25 07/08/25 History (Scale Score 7-10) pantoprazole 40 mg tablet,delayed 40 mg PO DAILY 07/08/25 07/08/25 History release tamsulosin 0.4 mg capsule (Flomax) 0.4 mg PO HS 07/08/25 07/08/25 History New Prescriptions to Start Prescriptions: Allergies Allergy/AdvReac Type Severity Reaction Status Date / Time morphine AdvReac Vomiting Verified 05/30/25 12:54 Exam Data for Last 24 hours Vital signs and Labs for Last 24 Hours: Temp Pulse Resp BP Pulse Ox O2 Del Method 98.2 F 47 L 18 159/83 H 96 Nasal Cannula 07/08/25 16:00 07/08/25 16:00 07/08/25 16:00 07/08/25 16:00 07/08/25 16:00 07/08/25 17:00 Laboratory Results - last 24 hr 07/08/25 09:52: SARS-CoV-2 (PCR) Not detected, Influenza Type A (PCR) Not detected, Influenza Type B (PCR) Not detected, RSV (PCR) Not detected, Rhinovirus (PCR) Not detected 07/08/25 10:15: WBC 5.1, RBC 4.76, Hgb 14.5, Hct 42.8, MCV 89.9, MCH 30.5, MCHC 33.9, RDW 12.8, Plt Count 221, MPV 9.8, Neut % (Auto) 68.6, Lymph % (Auto) 25.1, [place] % (Auto) 5.3, Eos % (Auto) 0.6, Baso % (Auto) 0.2, Neut # (Auto) 3.5, Lymph # (Auto) 1.3, [place] # (Auto) 0.3, Eos # (Auto) 0.0, Baso # (Auto) 0.0, D-Dimer 0.70 H, Sodium 139, Potassium 3.6, Chloride 105, Carbon Dioxide 30, Anion Gap 7.6, BUN 11, Creatinine 0.60 L, Estimated Creat Clear 160, Estimated GFR 137, Est GFR ( Amer) 166, Glucose 95, Calcium 9.2, Magnesium 1.9, Total Bilirubin 0.2, AST 26, ALT 21, Alkaline Phosphatase 84, Troponin I 0.06 H, NT-Pro-B Natriuret Pep 348 H, Total Protein 6.6, Albumin 4.1, Globulin 2.5, Albumin/Globulin Ratio 1.6 07/08/25 12:55: Troponin I 0.06 H 07/08/25 16:05: Troponin I 0.06 H I & O for Last 24 hours: Intake & Output 07/05/25 07/06/25 07/07/25 07/08/25 23:59 23:59 23:59 23:59 Intake Total 400 / 400 Balance 400 / 400 Weight 86.183 kg Constitutional Constitutional: no acute distress *Routine HEENT Exam Head: Present normocephalic Eye: Present EOMI and PERRL ENT: Present mucous membranes moist *Routine Neck Exam Neck: Present supple; Absent lymphadenopathy *Routine Respiratory Exam Respiratory: Present CTA bilaterally *Routine Cardiovascular Exam Cardiovascular: Present RRR *Routine Abdominal Exam Abdominal: Present soft and normoactive bowel sounds; Absent tenderness *Routine Rectal Exam Rectal:: deferred *Routine Genitalia Exam Genitalia:: deferred *Routine Extremities Exam Extremities: Absent cyanosis, clubbing or edema *Routine Skin Exam Skin: Present warm; Absent rash *Routine Neurological Exam Neurological: Present alert and oriented X3 Assessment and Plan *Assessment and plan (1) Non-ST elevation myocardial infarction (NSTEMI): Status: Acute Category: Medical Code(s): I21.4 - Non-ST elevation (NSTEMI) myocardial infarction Plan Rodolfo Up is a 59-year-old male with medical history significant for CAD with 1 stent, current tobacco smoker, anxiety/depression, GERD, BPH who presents with chest heaviness for 2 days. He states he was sitting and drinking coffee 2 days ago when he started to feel sudden onset left-sided chest heaviness with radiation to bilateral arms and left ear pain. He went to [facility] but left AMA after he states he was sitting there for more than 11 hours and got a heparin . He was chest pain-free yesterday, but this morning he again felt chest heaviness with similar radiation. He states he had similar symptoms several years ago when he had a heart attack and required 1 stent. Denies shortness of breath, fever/chills, abdominal pain. Workup in the ED significant for troponin 0.06, EKG without acute ischemic changes but did show sinus bradycardia which is chronic. CBC, CMP, CXR unremarkable. Case discussed ED provider and I made the decision to admit patient for NSTEMI. #Chest pressure #NSTEMI #History of CAD with stent ? Presented with 2 days of chest pressure with radiation to bilateral arms, left ear pain. Resolved yesterday but came back today. ? Initial troponin 0.06, has plateaued at 0.06. EKG without acute ischemic changes. ? Patient is a chronic current tobacco smoker. CXR without acute findings. ? Given strong concern for ACS, will start therapeutic Lovenox. ? Continue home Plavix 75 mg, atorvastatin 40 mg. Will hold off on beta-tere due to chronic bradycardia. Aspirin load given in the ED. ? Follow-up ECHO, A1c, panel, TSH. ? Will monitor overnight and discuss with Dr. Conway in the morning as patient is chest pain free at this time. ? Nitro tabs as needed. #Current tobacco smoker ? States he is motivated to quit smoking, declines nicotine patch. #Anxiety/depression ? Continue home medications once reconciled. #GERD ? Continue home PPI. #BPH ? Continue home Flomax. Full code DVT prophylaxis: Therapeutic Lovenox
[2025-07-08] MEDS: TAMSULOSIN 0.4MG CAPSULE 0.4 MG PO (20:10)
[2025-07-08] MEDS: ATORVASTATIN 40MG TABLET 40 MG PO (20:10)
[2025-07-09] VITALS: PULSE 50
[2025-07-09 04:00] VITALS: BP 131/64; PULSE 50; PULSE 52; RESP 16; TEMP 36.7; O2SAT 97; BMI 28.1
--- NOTE | 2025-07-09 04:23 | PC.NURSE ---
Addendum entered by Isaiah Lua RN 07/10/25 00:29: Pt was not Afib on tele. Pt had bradycardia. Error in Documentation. Original Note: Pt A&O x4. Pt is on RA. Pt VSS. Pt Afib on Tele. Pt reported an episode where he felt head heaviness that affected his arms. Pt reported that it was a small episode and he felt relief after. Pt reported it was the same as episodes he had prior to admission. Pt had no spike of HR during this time. Pt has been up and ambulating on the unit. Pt not voicing any concerns currently. Pt resting w/ call light in reach. POC ongoing.
[2025-07-09 07:47] LABS: Hematocrit 40.1 % (42.0-52.0); Hemoglobin 13.1 g/dL (14.1-18.0); Immature Granulocytes % 0.2 %; Mean Corpuscular HGB Conc 32.7 g/dL (31.8-35.4); Mean Corpuscular Hemoglobin 29.6 pg (27.0-31.2); Mean Corpuscular Volume 90.5 fl (80-94); Nucleated Red Blood Cells % 0 %; Platelet Count 200 K/mm3 (142-424); Red Blood Count 4.43 M/mm3 (4.60-6.20); Red Cell Distribution Width-SD 42.8 fL; White Blood Count 5.0 K/mm3 (4.8-10.8)
[2025-07-09 07:57] LABS: Chloride 106 mmol/L (98-107)
[2025-07-09 07:58] LABS: Albumin Level 3.7 g/dl (3.5-5.0); Potassium 4.0 mmoL/L (3.5-5.1); Sodium 138 mmol/L (136-145)
[2025-07-09 08:00] VITALS: BP 150/66; PULSE 56; PULSE 63; RESP 16; TEMP 36.5; O2SAT 98
[2025-07-09 08:01] LABS: Alanine Aminotransferase 20 U/L (12-78); Albumin/Globulin Ratio 1.7 (1.1-1.8); Alkaline Phosphatase 77 U/L (38-126); Anion Gap 9.0 mEq/L (5-15); Aspartate Amino Transferase 22 U/L (17-59); Bilirubin,Total 0.3 mg/dl (0.2-1.3); Blood Urea Nitrogen 11 mg/dl (9-20); Calcium 8.5 mg/dl (8.4-10.2); Carbon Dioxide 27 mmol/L (22.0-30.0); Creatinine Clearance Estimated 142 mL/min (50-200); Creatinine,Serum 0.70 mg/dl (0.66-1.25); Estimated Glomerular Filt Rate 115 ml/min (>60); GFR (African American) 139 ML/MIN (>60); Globulin 2.2 g/dL (1.3-3.2); Glucose 108 mg/dl (74-100); Magnesium 2.0 mg/dl (1.6-2.3); Total Protein,Serum 5.9 g/dl (6.3-8.2)
[2025-07-09 08:18] LABS: Cholesterol 93 mg/dl (140-200); HDL Cholesterol 30 mg/dl (40-60); Triglycerides 119 mg/dl (30-150)
[2025-07-09 08:29] LABS: Thyroid Stimulating Hormone 1.40 uIU/mL (0.465-4.68)
[2025-07-09 09:05] LABS: Hemoglobin A1C 6.0 % (4.0-6.0)
[2025-07-09] MEDS: ASPIRIN EC 81MG TABLET 81 MG PO (09:09)
[2025-07-09] MEDS: CLOPIDOGREL 75MG TAB 75 MG PO (09:09)
[2025-07-09] MEDS: PANTOPRAZOLE 40MG TABLET 40 MG PO (09:09)
[2025-07-09 12:00] VITALS: BP 158/83; PULSE 59; PULSE 81; RESP 16; TEMP 36.6; O2SAT 98
[2025-07-09] MEDS: FLUOXETINE 20MG CAPSULE 20 MG PO (14:38)
--- NOTE | 2025-07-09 15:52 | P.PN_ITS ---
Subjective *Date: 07/09/25 *Time: 15:52 Interval history: Patient doing well, asymptomatic today. Did have 4 episodes of chest pain after admission yesterday. Walking around hallways without symptoms. Wants to go home, but understands he has an NSTEMI. Plan for [facility] on Friday. Exam Data for Last 24 hours Vital signs and Labs for Last 24 Hours: Temp Pulse Resp BP Pulse Ox O2 Del Method 97.9 F 81 16 158/83 H 98 Room Air 07/09/25 12:07/09/25 12:07/09/25 12:07/09/25 12:07/09/25 12:00 07/09/25 15:00 Laboratory Results - last 24 hr 07/08/25 16:05: Troponin I 0.06 H 07/09/25 06:30: WBC 5.0, RBC 4.43 L, Hgb 13.1 L, Hct 40.1 L, MCV 90.5, MCH 29.6, MCHC 32.7, RDW 13.0, Plt Count 200, MPV 10.3, Neut % (Auto) 62.1, Lymph % (Auto) 31.3, [place] % (Auto) 4.6, Eos % (Auto) 1.4, Baso % (Auto) 0.4, Neut # (Auto) 3.1, Lymph # (Auto) 1.6, [place] # (Auto) 0.2, Eos # (Auto) 0.1, Baso # (Auto) 0.0, Sodium 138, Potassium 4.0, Chloride 106, Carbon Dioxide 27, Anion Gap 9.0, BUN 11, Creatinine 0.70, Estimated Creat Clear 142, Estimated GFR 115, Est GFR ( Amer) 139, Glucose 108 H, Hemoglobin A1c 6.0, Calcium 8.5, Magnesium 2.0, Total Bilirubin 0.3, AST 22, ALT 20, Alkaline Phosphatase 77, Total Protein 5.9 L, Albumin 3.7, Globulin 2.2, Albumin/Globulin Ratio 1.7, Triglycerides 119, Cholesterol 93 L, LDL Cholesterol Direct 41.62 L, VLDL Cholesterol 24, HDL Cholesterol 30 L, Cholesterol/HDL Ratio 3.1, TSH 1.40 I & O for Last 24 hours: Intake & Output 07/06/25 07/07/25 07/08/25 07/09/25 23:59 23:59 23:59 23:59 Intake Total 400 / 640 1080 / 1080 Output Total 0 / 0 0 / 0 Balance 400 / 640 1080 / 1080 Weight 86.183 kg 89.267 kg Constitutional Constitutional: no acute distress *Routine HEENT Exam Head: Present normocephalic Eye: Present EOMI and PERRL ENT: Present mucous membranes moist *Routine Neck Exam Neck: Present supple; Absent lymphadenopathy *Routine Respiratory Exam Respiratory: Present CTA bilaterally *Routine Cardiovascular Exam Cardiovascular: Present RRR *Routine Abdominal Exam Abdominal: Present soft and normoactive bowel sounds; Absent tenderness *Routine Extremities Exam Extremities: Absent cyanosis, clubbing or edema *Routine Skin Exam Skin: Present warm; Absent rash *Routine Neurological Exam Neurological: Present alert and oriented X3 Assessment and Plan *Assessment and plan (1) Non-ST elevation myocardial infarction (NSTEMI): Status: Acute Category: Medical Code(s): I21.4 - Non-ST elevation (NSTEMI) myocardial infarction Plan Rodolfo Up is a 59-year-old male with medical history significant for CAD with 1 stent, current tobacco smoker, anxiety/depression, GERD, BPH who presents with chest heaviness for 2 days. He states he was sitting and drinking coffee 2 days ago when he started to feel sudden onset left-sided chest heaviness with radiation to bilateral arms and left ear pain. He went to [facility] but left AMA after he states he was sitting there for more than 11 hours and got a heparin . He was chest pain-free yesterday, but this morning he again felt chest heaviness with similar radiation. He states he had similar symptoms several years ago when he had a heart attack and required 1 stent. Denies shortness of breath, fever/chills, abdominal pain. Workup in the ED significant for troponin 0.06, EKG without acute ischemic changes but did show sinus bradycardia which is chronic. CBC, CMP, CXR unremarkable. Case discussed ED provider and I made the decision to admit patient for NSTEMI. #Chest pressure #NSTEMI #History of CAD with stent ? Presented with 2 days of chest pressure with radiation to bilateral arms, left ear pain. ? Initial troponin 0.06, has plateaued at 0.06. EKG without acute ischemic changes. ? Patient is a chronic current tobacco smoker. CXR without acute findings. ? Given strong concern for ACS?secondary to chest pain, continue therapeutic Lovenox. ? Patient had 4 episodes of midsternal chest pain yesterday after admission, none today. Has been walking around hallways without symptoms. ? ECHO does show wall motion abnormalities with mild hypokinesis of the LV wall, LVEF 50 to 55%. ? Given this, I discussed case with Dr. Conway who will plan for [facility] on Friday. N.p.o. at midnight prior night. ? Continue home Plavix 75 mg, atorvastatin 40 mg. Will hold off on beta-tere due to chronic bradycardia. Aspirin load given in the ED. ? Hemoglobin A1c 6.0%, TSH normal, LDL 41. ? Nitro tabs as needed. #Current tobacco smoker ? States he is motivated to quit smoking, declines nicotine patch. #Anxiety/depression ? Continue home medications once reconciled. #GERD ? Continue home PPI. #BPH ? Continue home Flomax. Full code DVT prophylaxis: Therapeutic Lovenox
[2025-07-09 16:00] VITALS: BP 134/71; PULSE 45; PULSE 55; RESP 14; TEMP 36.7; O2SAT 96
--- NOTE | 2025-07-09 18:38 | PC.NURSE ---
Pt is A&Ox4. Vital signs stable tolerating room air. No complaints of chest pain today. Pt has been ambulating in the hallways independently. Pt resting sitting up in bed at this time with no further needs voiced at this time. Call light within reach.
[2025-07-09 20:00] VITALS: BP 123/58; PULSE 60; PULSE 68; RESP 16; TEMP 36.6; O2SAT 98
[2025-07-09] MEDS: TAMSULOSIN 0.4MG CAPSULE 0.4 MG PO (20:05)
[2025-07-09] MEDS: ATORVASTATIN 40MG TABLET 40 MG PO (20:05)
[2025-07-10] VITALS: BP 132/73; PULSE 55; PULSE 61; RESP 16; TEMP 36.6; O2SAT 94
--- NOTE | 2025-07-10 00:25 | PC.NURSE ---
Pt on telemetry had a PVC w/ every beat for 1 minute. notified.
[2025-07-10 04:00] VITALS: BP 129/75; PULSE 50; PULSE 51; RESP 16; TEMP 36.6; O2SAT 94; BMI 28.1
--- NOTE | 2025-07-10 04:07 | PC.NURSE ---
Pt is A&Ox4. Pt is on RA. Pt VSS. Pt is sinus ileana on tele, however pt did have a one minute run with PVC's on every beat, and a few more PVC's around that time. Provider notified. No new orders or interventions given at this time. Pt denied feeling any chest pain or chest heaviness. Pt denies have any chest pain or heaviness at all this shift. Pt has had no other acute changes. Pt not voicing any concerns. Pt resting w/ call light in reach. POC ongoing.
[2025-07-10 07:06] LABS: Hematocrit 40.7 % (42.0-52.0); Hemoglobin 13.4 g/dL (14.1-18.0); Immature Granulocytes % 0.2 %; Mean Corpuscular HGB Conc 32.9 g/dL (31.8-35.4); Mean Corpuscular Hemoglobin 29.5 pg (27.0-31.2); Mean Corpuscular Volume 89.5 fl (80-94); Nucleated Red Blood Cells % 0 %; Platelet Count 209 K/mm3 (142-424); Red Blood Count 4.55 M/mm3 (4.60-6.20); Red Cell Distribution Width-SD 42.3 fL; White Blood Count 4.9 K/mm3 (4.8-10.8)
[2025-07-10 07:11] LABS: Albumin Level 3.8 g/dl (3.5-5.0); Chloride 105 mmol/L (98-107); Sodium 136 mmol/L (136-145)
[2025-07-10 07:12] LABS: Potassium 4.0 mmoL/L (3.5-5.1)
[2025-07-10 07:14] LABS: Alanine Aminotransferase 21 U/L (12-78); Anion Gap 6.0 mEq/L (5-15); Aspartate Amino Transferase 24 U/L (17-59); Blood Urea Nitrogen 12 mg/dl (9-20); Carbon Dioxide 29 mmol/L (22.0-30.0); Creatinine Clearance Estimated 142 mL/min (50-200); Creatinine,Serum 0.70 mg/dl (0.66-1.25); Estimated Glomerular Filt Rate 115 ml/min (>60); GFR (African American) 139 ML/MIN (>60)
[2025-07-10 07:15] LABS: Albumin/Globulin Ratio 1.6 (1.1-1.8); Alkaline Phosphatase 75 U/L (38-126); Bilirubin,Total 0.5 mg/dl (0.2-1.3); Calcium 8.6 mg/dl (8.4-10.2); Globulin 2.4 g/dL (1.3-3.2); Glucose 108 mg/dl (74-100); Magnesium 1.9 mg/dl (1.6-2.3); Total Protein,Serum 6.2 g/dl (6.3-8.2)
[2025-07-10 08:00] VITALS: BP 137/75; PULSE 63; PULSE 65; RESP 18; TEMP 36.5; O2SAT 94
[2025-07-10] MEDS: PANTOPRAZOLE 40MG TABLET 40 MG PO (08:17)
[2025-07-10] MEDS: ASPIRIN EC 81MG TABLET 81 MG PO (08:17)
[2025-07-10] MEDS: CLOPIDOGREL 75MG TAB 75 MG PO (08:17)
[2025-07-10] MEDS: FLUOXETINE 20MG CAPSULE 20 MG PO (08:17)
[2025-07-10 12:00] VITALS: BP 135/74; PULSE 57; PULSE 62; RESP 16; TEMP 36.8; O2SAT 97
--- NOTE | 2025-07-10 14:41 | P.PN_ITS ---
Subjective *Date: 07/10/25 *Time: 14:41 Interval history: Patient is having on and off chest pain with left-sided radiation. Wants to go home but understands he has an NSTEMI. Plan for [facility] in the morning. Per Dr. Conway Exam Data for Last 24 hours Vital signs and Labs for Last 24 Hours: Temp Pulse Resp BP Pulse Ox O2 Del Method 98.2 F 57 L 16 135/74 97 Room Air 07/10/25 12:07/10/25 12:07/10/25 12:07/10/25 12:07/10/25 12:00 07/10/25 13:00 Laboratory Results - last 24 hr 07/10/25 06:45: WBC 4.9, RBC 4.55 L, Hgb 13.4 L, Hct 40.7 L, MCV 89.5, MCH 29.5, MCHC 32.9, RDW 12.9, Plt Count 209, MPV 10.0, Neut % (Auto) 62.2, Lymph % (Auto) 31.3, [place] % (Auto) 4.9, Eos % (Auto) 1.0, Baso % (Auto) 0.4, Neut # (Auto) 3.1, Lymph # (Auto) 1.5, [place] # (Auto) 0.2, Eos # (Auto) 0.1, Baso # (Auto) 0.0, Sodium 136, Potassium 4.0, Chloride 105, Carbon Dioxide 29, Anion Gap 6.0, BUN 12, Creatinine 0.70, Estimated Creat Clear 142, Estimated GFR 115, Est GFR ( Amer) 139, Glucose 108 H, Calcium 8.6, Magnesium 1.9, Total Bilirubin 0.5, AST 24, ALT 21, Alkaline Phosphatase 75, Total Protein 6.2 L, Albumin 3.8, Globulin 2.4, Albumin/Globulin Ratio 1.6 I & O for Last 24 hours: Intake & Output 07/07/25 07/08/25 07/09/25 07/10/25 23:59 23:59 23:59 23:59 Intake Total 400 / 640 1320 / 1560 480 / 480 Output Total 0 / 0 0 / 0 Balance 400 / 640 1320 / 1560 480 / 480 Weight 86.183 kg 89.267 kg 89.176 kg Constitutional Constitutional: no acute distress *Routine HEENT Exam Head: Present normocephalic Eye: Present EOMI and PERRL ENT: Present mucous membranes moist *Routine Neck Exam Neck: Present supple; Absent lymphadenopathy *Routine Respiratory Exam Respiratory: Present CTA bilaterally *Routine Cardiovascular Exam Cardiovascular: Present RRR *Routine Abdominal Exam Abdominal: Present soft and normoactive bowel sounds; Absent tenderness *Routine Extremities Exam Extremities: Absent cyanosis, clubbing or edema *Routine Skin Exam Skin: Present warm; Absent rash *Routine Neurological Exam Neurological: Present alert and oriented X3 Assessment and Plan *Assessment and plan (1) Non-ST elevation myocardial infarction (NSTEMI): Status: Acute Category: Medical Code(s): I21.4 - Non-ST elevation (NSTEMI) myocardial infarction Plan Rodolfo Up is a 59-year-old male with medical history significant for CAD with 1 stent, current tobacco smoker, anxiety/depression, GERD, BPH who presents with chest heaviness for 2 days. He states he was sitting and drinking coffee 2 days ago when he started to feel sudden onset left-sided chest heaviness with radiation to bilateral arms and left ear pain. He went to [facility] but left AMA after he states he was sitting there for more than 11 hours and got a heparin . He was chest pain-free yesterday, but this morning he again felt chest heaviness with similar radiation. He states he had similar symptoms several years ago when he had a heart attack and required 1 stent. Denies shortness of breath, fever/chills, abdominal pain. Workup in the ED significant for troponin 0.06, EKG without acute ischemic changes but did show sinus bradycardia which is chronic. CBC, CMP, CXR unremarkable. Case discussed ED provider and I made the decision to admit patient for NSTEMI. #Chest pressure #NSTEMI #History of CAD with stent ? Presented with 2 days of chest pressure with radiation to bilateral arms, left ear pain. ? Initial troponin 0.06, has plateaued at 0.06. EKG without acute ischemic changes. ? Patient is a chronic current tobacco smoker. CXR without acute findings. ? Given strong concern for ACS, continue therapeutic Lovenox. ? Patient has had a few more episodes of chest pain with left-sided radition to arm during admission. Has been walking around hallways without symptoms. ? ECHO does show wall motion abnormalities with mild hypokinesis of the LV wall, LVEF 50 to 55%. ? Given this, I discussed case with Dr. Conway who will plan for [facility] on Friday. Can eat after midnight. ? Continue home Plavix 75 mg, atorvastatin 40 mg. Will hold off on beta-tere due to chronic bradycardia. Aspirin load given in the ED. ? Hemoglobin A1c 6.0%, TSH normal, LDL 41. ? Nitro tabs as needed. #Current tobacco smoker ? States he is motivated to quit smoking, declines nicotine patch. #Anxiety/depression ? Continue home medications once reconciled. #GERD ? Continue home PPI. #BPH ? Continue home Flomax. Full code DVT prophylaxis: Therapeutic Lovenox
[2025-07-10 16:00] VITALS: BP 122/76; PULSE 56; PULSE 60; RESP 16; TEMP 36.8; O2SAT 96
--- NOTE | 2025-07-10 17:10 | PC.NURSE ---
Pt is A&OX4. Vital signs stable tolerating room air. Pt has denied any chest pain this shift. NSR-sinus ileana on tele. Pt has been ambulating in the hallway independently today. Pt supposed to have a heart cath tomorrow. Pt resting comfortably sitting up in the chair with no further needs voiced at this time. Call light within reach.
[2025-07-10 20:00] VITALS: BP 117/74; PULSE 50; PULSE 75; RESP 16; TEMP 36.6; O2SAT 97
[2025-07-10] MEDS: ATORVASTATIN 40MG TABLET 40 MG PO (20:05)
[2025-07-10] MEDS: TAMSULOSIN 0.4MG CAPSULE 0.4 MG PO (20:05)
[2025-07-11] VITALS (19 sets, daily range): BP systolic 105–153; BP diastolic 48–85; PULSE 43–75; RESP 14–20; TEMP 36.4–36.9; O2SAT 90–99; BMI 27.8
--- NOTE | 2025-07-11 03:42 | PC.NURSE ---
Pt A&Ox4. Pt is on RA. Pt VSS. Pt sinus bradycardia on tele. Pt not voicing any chestpain or chest heaviness. Pt showered and in gown for cardiology consult and possible LHC today. Pt not voicing any concerns at this time. Pt resting w/ call light in reach. POC ongoing.
[2025-07-11 06:47] LABS: Hematocrit 41.6 % (42.0-52.0); Hemoglobin 13.9 g/dL (14.1-18.0); Immature Granulocytes % 0.2 %; Mean Corpuscular HGB Conc 33.4 g/dL (31.8-35.4); Mean Corpuscular Hemoglobin 30.0 pg (27.0-31.2); Mean Corpuscular Volume 89.8 fl (80-94); Nucleated Red Blood Cells % 0 %; Platelet Count 204 K/mm3 (142-424); Red Blood Count 4.63 M/mm3 (4.60-6.20); Red Cell Distribution Width-SD 42.7 fL; White Blood Count 4.8 K/mm3 (4.8-10.8)
[2025-07-11 06:54] LABS: Albumin Level 3.9 g/dl (3.5-5.0); Chloride 105 mmol/L (98-107); Potassium 4.2 mmoL/L (3.5-5.1); Sodium 136 mmol/L (136-145)
[2025-07-11 06:57] LABS: Alanine Aminotransferase 25 U/L (12-78); Albumin/Globulin Ratio 1.6 (1.1-1.8); Alkaline Phosphatase 82 U/L (38-126); Anion Gap 10.2 mEq/L (5-15); Aspartate Amino Transferase 28 U/L (17-59); Bilirubin,Total 0.5 mg/dl (0.2-1.3); Blood Urea Nitrogen 14 mg/dl (9-20); Calcium 9.0 mg/dl (8.4-10.2); Carbon Dioxide 25 mmol/L (22.0-30.0); Creatinine Clearance Estimated 123 mL/min (50-200); Creatinine,Serum 0.80 mg/dl (0.66-1.25); Estimated Glomerular Filt Rate 99 ml/min (>60); GFR (African American) 119 ML/MIN (>60); Globulin 2.5 g/dL (1.3-3.2); Glucose 111 mg/dl (74-100); Magnesium 2.1 mg/dl (1.6-2.3); Total Protein,Serum 6.4 g/dl (6.3-8.2)
[2025-07-11] MEDS: ASPIRIN EC 81MG TABLET 81 MG PO (09:32)
[2025-07-11] MEDS: CLOPIDOGREL 75MG TAB 75 MG PO (09:32)
[2025-07-11] MEDS: FLUOXETINE 20MG CAPSULE 20 MG PO (09:33)
[2025-07-11] MEDS: PANTOPRAZOLE 40MG TABLET 40 MG PO (09:33)
--- NOTE | 2025-07-11 09:42 | IR_ITS ---
APPROVED REPORT Patient Location: Inpatient PROCEDURES Left heart catheterization Left ventriculogram Selective coronary angiogram Drug-eluting stent deployment to the circumflex artery/obtuse marginal artery INDICATION Acute non-ST elevation myocardial infarction, Coronary artery disease Informed consent was obtained prior to the procedure. COMPLICATIONS none Estimated Blood Loss: less than 10ml TECHNIQUE One percent lidocaine used to anesthetize the right anterior aspect of the wrist. The right radial artery was accessed via the Seldinger technique. A 6 Welsh sheath was placed in the right radial artery. 2.5 mg of Verapamil, 800 mcg of nitroglycerin, 1mg Lidocaine and 5000 U Heparin were given through the arterial sheath. The JL3 catheter was also used to perform left heart catheterization, left ventriculogram and selective coronary angiogram. At the end the diagnostic angiogram therapeutic heparin was administered giving a therapeutic ACT and the guide catheter was placed in left main artery followed by Choice PT extra-support wire placed into the second obtuse marginal artery. A 2.25 x 18 mm Tyshawn frontier stent was deployed at 16 andrés reducing the critical stenosis to 0%. KAMILA-3 flow was present before and after the procedure. At the end the procedure the apparatus was removed the sheath was removed pneumostasis was achieved using TR banding patient was transferred to the postop boarding in stable condition ANGIOGRAPHIC RESULTS The left main artery Normal The left anterior descending artery Has proximal and mid vessel 20 and 30% stenoses. The circumflex artery Large and dominant with a critical greater than 90% stenosis and a medium sized obtuse marginal artery. The right coronary artery Nondominant normal The [place] ventriculogram reveals Normal 65% The left ventricular end-diastolic pressure 10 mmHg IMPRESSION Critical stenosis in a dominant circumflex artery second obtuse marginal artery Successful stenting of the second obtuse marginal artery critical disease reduced to 0% with 1 drug-eluting stent Normal ejection fraction Normal LVEDP PLAN 1. Dual antiplatelet therapy 2. Cardiac rehabilitation 3. Avoidance of tobacco products 4. Factor modification 5. LDL less than 55 achieved with high intensity statin Electronically signed by : Noble Conway MD 07/11/2025 15:46:02
--- NOTE | 2025-07-11 12:03 | EXP.CARD.CON ---
History of Present Illness History of Present Illness Consult date: 07/11/25 Requesting physician: Lalito Hickman Consult reason: chest pain Chief complaint: chest heaviness History of present illness: This is a 59-year-old white gentleman who presented to the emergency department with complaints of chest heaviness. The patient states that he was at rest several times last week when he had sudden onset of heaviness in the left side of his chest with radiation into his bilateral arms and the left side of his neck. He states that he did go to the hospital at [place] and after 11 hours he left because they were not doing anything for him. He states that the day after going to [place] he was chest pain-free for 1 day then he had recurrence of his symptoms so he decided come to the emergency department here. He is short of breath with his chest pain. He denies any nausea or vomiting. Upon arrival to the emergency department he was found to have a non-STEMI and was admitted to the hospital. He does have a history of coronary artery disease with 1 stent in the past. He has not been seeing cardiology regularly. He denies any lower extremity edema. He denies any fever, chills, nausea, vomiting, diarrhea, PND orthopnea PFSH PFSH Disclaimer: The information contained in this section may have been updated after the patient was seen, as this information can be updated by other users. Medical History (Updated 07/11/25 @ 12:10 by Alma Humphrey APRN) Hyperlipidemia Angina pectoris Bowel obstruction History of heart attack Heart attack Depression Erosive osteoarthritis of multiple sites Surgical History History of bowel resection S/P exploratory laparotomy Hx of appendectomy Family History Other Diabetes Social History (Updated 07/08/25 @ 14:27 by Ivonne Peterson RN) Smoking Status: Current every day smoker alcohol intake: never substance use type: denies use current occupational status: employed Travel in the last 8 weeks?: None household members: spouse and none housing: house Have you lived/traveled outside US in past 30 days?: No Contact w/someone who lives/traveled outside US past 30 days?: No Exposure to someone with infectious disease in past 14 days?: No Do you have a fever (greater than 100.4 F or 38 C)?: No Have you tested positive for COVID-19?: No Exposed to someone with COVID-19 in past 14 days?: No Do you have a sore throat?: No Do you have a cough?: No Do you have any weakness?: No Are you experiencing any nausea/vomitting?: No Do you have any diarrhea?: No Are you experiencing any unusual bleeding?: No Do you have any muscle aches/pain?: No Do you have any abdominal pain?: No Are you experiencing loss of taste or smell?: No Review of Systems Review of Systems Review of systems:: pertinent systems reviewed and negative unless documented below Constitutional Constitutional: Reports system reviewed and no additional complaints, except as documented Eyes Eyes: Reports system reviewed and no additional complaints, except as documented ENT Ears, Nose, Mouth, and Throat: Reports system reviewed and no additional complaints, except as documented *Cardiovascular Cardiovascular: Reports system reviewed and no additional complaints, except as documented, Reports chest pain, Reports chest pain with activity and Reports dyspnea *Respiratory Respiratory: Reports system reviewed and no additional complaints, except as documented and Reports dyspnea *Gastrointestinal Gastrointestinal: Reports system reviewed and no additional complaints, except as documented *Genitourinary Genitourinary: Reports system reviewed and no additional complaints, except as documented *Musculoskeletal Musculoskeletal: Reports system reviewed and no additional complaints, except as documented Integumentary/Breasts Skin/Breast: Reports system reviewed and no additional complaints, except as documented *Neurologic Neurologic: Reports system reviewed and no additional complaints, except as documented Psychiatric Psychiatric: Reports system reviewed and no additional complaints, except as documented Endocrine Endocrine: Reports system reviewed and no additional complaints, except as documented Hematologic/Lymphatic Hematologic/Lymphatic: Reports system reviewed and no additional complaints, except as documented Allergic/Immunologic Allergic/Immunologic: Reports system reviewed and no additional complaints, except as documented Exam Data for Last 24 hours Vital signs and Labs for Last 24 Hours: Temp Pulse Resp BP Pulse Ox O2 Del Method 97.9 F 56 L 16 137/75 99 Room Air 07/11/25 10:53 07/11/25 10:53 07/11/25 10:53 07/11/25 10:53 07/11/25 10:53 07/11/25 11:00 Laboratory Results - last 24 hr 07/11/25 06:25: WBC 4.8, RBC 4.63, Hgb 13.9 L, Hct 41.6 L, MCV 89.8, MCH 30.0, MCHC 33.4, RDW 12.9, Plt Count 204, MPV 10.1, Neut % (Auto) 60.0, Lymph % (Auto) 31.6, [place] % (Auto) 6.6, Eos % (Auto) 1.2, Baso % (Auto) 0.4, Neut # (Auto) 2.9, Lymph # (Auto) 1.5, [place] # (Auto) 0.3, Eos # (Auto) 0.1, Baso # (Auto) 0.0, Sodium 136, Potassium 4.2, Chloride 105, Carbon Dioxide 25, Anion Gap 10.2, BUN 14, Creatinine 0.80, Estimated Creat Clear 123, Estimated GFR 99, Est GFR ( Amer) 119, Glucose 111 H, Calcium 9.0, Magnesium 2.1 D, Total Bilirubin 0.5, AST 28, ALT 25, Alkaline Phosphatase 82, Total Protein 6.4, Albumin 3.9, Globulin 2.5, Albumin/Globulin Ratio 1.6 I & O for Last 24 hours: Intake & Output 07/08/25 07/09/25 07/10/25 07/11/25 23:59 23:59 23:59 23:59 Intake Total 400 / 640 1320 / 1560 860 / 1220 600 / 600 Output Total 0 / 0 0 / 0 0 / 0 Balance 400 / 640 1320 / 1560 860 / 1220 600 / 600 Weight 190 lb 196 lb 12.8 oz 196 lb 9.6 oz 194 lb 14.4 oz Constitutional Constitutional: no acute distress and average body habitus *Routine HEENT Exam Head: Present normocephalic and atraumatic ENT: Present mucous membranes moist *Routine Neck Exam Neck: Present supple, full ROM and normal carotid upstroke; Absent JVD, carotid bruit or lymphadenopathy *Routine Respiratory Exam Respiratory: Present CTA bilaterally, normal respiratory effort, able to speak in complete sentences and symmetric chest movement *Routine Cardiovascular Exam Cardiovascular: Present RRR, Normal S1 and Normal S2; Absent murmur or gallop *Routine Abdominal Exam Abdominal: Present soft and normoactive bowel sounds; Absent tenderness, distended or organomegaly *Routine Extremities Exam Extremities: Present full ROM, pulses intact and normal capillary refill; Absent cyanosis, clubbing or edema *Routine Skin Exam Skin: Present intact and warm; Absent erythema *Routine Neurological Exam Neurological: Present alert, oriented X3 and CN II-XII intact; Absent sensory deficit or motor deficit Routine Psychiatric Exam Psychiatric: Present normal affect Meds Home Medications and Allergies Home Medications ?Medication ?Instructions ?Recorded ?Confirmed ?Type atorvastatin 40 mg tablet 40 mg PO HS #90 tabs 05/30/25 07/08/25 Rx clopidogrel 75 mg tablet 75 mg PO DAILY #90 tabs 05/30/25 07/08/25 Rx fluoxetine 20 mg capsule 20 mg PO DAILY #90 caps 05/30/25 07/08/25 Rx nitroglycerin 0.4 mg sublingual 0.4 mg sublingual Q5M PRN Chest 07/08/25 07/08/25 History tablet Pain oxycodone 5 mg tablet 5 mg PO DAILYP PRN Severe Pain 07/08/25 07/08/25 History (Scale Score 7-10) pantoprazole 40 mg tablet,delayed 40 mg PO DAILY 07/08/25 07/08/25 History release tamsulosin 0.4 mg capsule (Flomax) 0.4 mg PO HS 07/08/25 07/08/25 History New Prescriptions to Start Prescriptions: Allergies Allergy/AdvReac Type Severity Reaction Status Date / Time morphine AdvReac Vomiting Verified 05/30/25 12:54 Assessment and Plan *Assessment and plan (1) Non-ST elevation myocardial infarction (NSTEMI): Status: Acute Category: Medical Code(s): I21.4 - Non-ST elevation (NSTEMI) myocardial infarction (2) Angina pectoris: Status: Acute Category: Medical Code(s): I20.9 - Angina pectoris, unspecified (3) CAD (coronary artery disease), [place] coronary artery: Status: Acute Qualifiers: [place] vs. transplanted heart: [place] heart Associated angina: unspecified whether angina present Qualified Code(s): I25.10 - Atherosclerotic heart disease of [place] coronary artery without angina pectoris Category: Medical Code(s): I25.10 - Atherosclerotic heart disease of [place] coronary artery without angina pectoris (4) Hyperlipidemia: Status: Acute Qualifiers: Hyperlipidemia type: mixed hyperlipidemia Qualified Code(s): E78.2 - Mixed hyperlipidemia Category: Medical Code(s): E78.5 - Hyperlipidemia, unspecified Plan Plan: 1. The patient was admitted to the hospital with a non-STEMI. He will undergo left cardiac catheterization today for further evaluation of his coronary artery disease due to his angina and non-STEMI. 2. The patient has been educated the risk and benefits of proceeding with left cardiac catheterization. The patient verbalizes understanding and is agreeable in proceeding with the procedure. 3. The patient will be n.p.o. preparation for left cardiac catheterization. 4. Coronary artery disease is present. Continue Plavix 75 mg daily. Start aspirin 81 mg daily. 5. His blood pressure is well-controlled. 6. His heart rate is too low to add a beta-tere. 7. Start irbesartan 75 mg daily for non-STEMI. 8. His LDL goal is less than 55. His LDL is 41. He is on Lipitor. 9. Echocardiogram shows an ejection fraction of 50 to 55% with anterior LV hypokinesis. 10. Further recommendations will be made pending the patient's response to treatment and the results of his left cardiac catheterization today. Thank you for the opportunity to help participate in the care of this patient. All recommendations and orders are per Dr. Martins.
[2025-07-11] MEDS: IRBESARTAN 75MG TABLET 75 MG PO (12:43)
[2025-07-11] MEDS: LIDOCAINE 1% 10ML MDV 10 ML IJ ×2 (15:20→15:21)
[2025-07-11] MEDS: HEPARIN 1,000 UNITS/ML 10ML VIAL (CATH LAB) 5000 UNIT IV (15:20)
[2025-07-11] MEDS: VERAPAMIL 2.5MG/ML 2ML VIAL 2.5 MG IV (15:20)
[2025-07-11] MEDS: HEPARIN 1,000 UNITS/500ML NS (CATH LAB) 3000 UNIT IV (15:20)
[2025-07-11] MEDS: NITROGLYCERIN 800MCG/8ML SYR (CATH LAB) 800 MCG IA (15:21)
[2025-07-11] MEDS: 0.9 % SODIUM CHLORIDE 500 ML 25 ML IV (15:21)
[2025-07-11] MEDS: MIDAZOLAM HCL 1MG/ML 5ML VIAL 1 MG IV (15:22)
[2025-07-11] MEDS: FENTANYL 100MCG/2ML VIAL 50 MCG IV (15:22)
--- OUTSIDE RECORDS SUMMARY | 2025-07-11 15:53 | XMS_ITS | Encounter Summary ---
Author Organization Healthcare Address [address] [place] [address] Care Team Providers Care Material Handling Technician Name Role Phone Ceasar Myles MD Primary Care Provider [phone] Encounter Details Date Type Department Care Team ([facility] st Contact Info) Description 07/02/2024 Orders Only External Location [address] [place] [address] Jose Antonio Nation MD [address] [place], [place] [id number] Social History Tobacco Use Types Packs/Day Years [...] documented as of this encounter Care Teams Material Handling Technician Relationship Specialty Start Date End Date Ceasar Myles MD [address] [place], [place] [id number] PCP - General 06/23/24 documented as of this encounter
--- OUTSIDE RECORDS SUMMARY | 2025-07-11 15:53 | XMS_ITS | Encounter Summary ---
Author Organization Healthcare Address [address] [place] [address] Care Team Providers Care Property Supervisor Name Role Phone Ceasar Myles MD Primary Care Provider [phone] Encounter Details Date Type Department Care Team ([facility] st Contact Info) Description 07/03/2024 Orders Only External Location [address] [place] [address] Jose Antonio Nation MD [address] [place], [place] [id number] Social History Tobacco Use Types Packs/Day Years [...] documented as of this encounter Care Teams Property Supervisor Relationship Specialty Start Date End Date Ceasar Myles MD [facility] [place] [address] PCP - General 06/23/24 documented as of this encounter
--- OUTSIDE RECORDS SUMMARY | 2025-07-11 15:53 | XMS_ITS | Encounter Summary ---
Author Organization Healthcare Address [address] [place] [address] Care Team Providers Care Wood Shop Teacher Name Role Phone Ceasar Myles MD Primary Care Provider [phone] Encounter Details Date Type Department Care Team ([facility] st Contact Info) Description 07/04/2024 Orders Only External Location [address] [place] [address] Jose Antonio Nation MD [address] [place], [place] [phone] Social History Tobacco Use Types Packs/Day Years [...] documented as of this encounter Care Teams Wood Shop Teacher Relationship Specialty Start Date End Date Ceasar Myles MD [facility] [place] [address] PCP - General 06/23/24 documented as of this encounter
--- OUTSIDE RECORDS SUMMARY | 2025-07-11 15:53 | XMS_ITS | Encounter Summary ---
Author Organization Healthcare Address [address] [place] [address] Care Team Providers Care Crane Hoist Or Lift Operator Name Role Phone Ceasar Myles MD Primary Care Provider [phone] Encounter Details Date Type Department Care Team ([facility] st Contact Info) Description 07/06/2024 Orders Only External Location [address] [place] [address] Jose Antonio Nation MD [address] [place], [place] [phone] Social History Tobacco Use Types Packs/Day Years [...] documented as of this encounter Care Teams Crane Hoist Or Lift Operator Relationship Specialty Start Date End Date Ceasar Myles MD [address] [place], [place] [phone] PCP - General 06/23/24 documented as of this encounter
--- OUTSIDE RECORDS SUMMARY | 2025-07-11 15:53 | XMS_ITS | Clinical Summary ---
Author Organization [facility] Address [address] [place] [address] Phone Care Team Providers Care Ophthalmic Technician Name Role Phone Ceasar Myles MD Primary Care Provider [phone] Allergies No known active allergies Medications fluoxetine [...] patient's age to complete this topic Insurance [facility] [address] Care Teams Ophthalmic Technician Relationship Specialty Start Date End Date Ceasar Myles MD PCP - General 05/01/10
--- OUTSIDE RECORDS SUMMARY | 2025-07-11 15:53 | XMS_ITS | Encounter Summary ---
Author Organization Healthcare Address [address] [place] [address] Care Team Providers Care Pillowcase Maker Name Role Phone Ceasar Myles MD Primary Care Provider Encounter Details Date Type Department Care Team ([facility] st Contact Info) Description 07/04/2024 Orders Only External Location [address] [place] [address] Jose Antonio Nation MD [address] [place], [place] [phone] Social History Tobacco Use Types Packs/Day Years [...] documented as of this encounter Care Teams Pillowcase Maker Relationship Specialty Start Date End Date Ceasar Myles MD [address] [place], [place] [phone] PCP - General 06/23/24 documented as of this encounter
--- OUTSIDE RECORDS SUMMARY | 2025-07-11 15:53 | XMS_ITS | Encounter Summary ---
Author Organization Healthcare Address [address] [place] [address] Care Team Providers Care Sales Recruiting Coordinator Name Role Phone Ceasar Myles MD Primary Care Provider [phone] Encounter Details Date Type Department Care Team ([facility] st Contact Info) Description 07/04/2024 Orders Only External Location [address] [place] [address] Jose Antonio Nation MD [address] [place], [place] [phone] Social History Tobacco Use Types Packs/Day Years [...] ging 07/04/2024 11:4 4 AM EDT Jose nAtonio Nation MD IMG XR PROCEDURES Final Resu lt documented in this encounter Visit Diagnoses Not on filedocumented in this encounter Additional Health Concerns Infection Onset Date Last Indicated Resolved Time Respiratory Rule-Out 07/31/2024 07/31/20242 024 6:37 PM EDT documented as of this encounter Care Teams Sales Recruiting Coordinator Relationship Specialty Start Date End Date Ceasar Myles MD [address] [place], [place] [phone] PCP - General 06/23/24 documented as of this encounter
--- OUTSIDE RECORDS SUMMARY | 2025-07-11 15:53 | XMS_ITS | Encounter Summary ---
Author Organization Healthcare Address [address] [place] [address] Care Team Providers Care Marketing Professor Name Role Phone Ceasar Myles MD Primary Care Provider [phone] Encounter Details Date Type Department Care Team ([facility] st Contact Info) Description 07/02/2024 Orders Only External Location [address] [place] [address] Provider, External Social History Tobacco Use Types [...] documented as of this encounter Care Teams Marketing Professor Relationship Specialty Start Date End Date Ceasar Myles MD [address] [place] [address] PCP - General 06/23/24 documented as of this encounter
--- OUTSIDE RECORDS SUMMARY | 2025-07-11 15:53 | XMS_ITS | Encounter Summary ---
Author Organization Healthcare Address [address] [place] [address] Care Team Providers Care Used Car Sales Manager Name Role Phone Ceasar Myles MD Primary Care Provider [phone] Encounter Details Date Type Department Care Team ([facility] st Contact Info) Description 07/12/2024 Orders Only External Location [address] [place] [address] Provider, External Social History Tobacco Use Types [...] documented as of this encounter Care Teams Used Car Sales Manager Relationship Specialty Start Date End Date Ceasar Myles MD [address] [place] [address] PCP - General 06/23/24 documented as of this encounter
--- OUTSIDE RECORDS SUMMARY | 2025-07-11 15:53 | XMS_ITS | Encounter Summary ---
Author Organization Healthcare Address [address] [place] [address] Care Team Providers Care Casino Attendant Name Role Phone Ceasar Myles MD Primary Care Provider [phone] Encounter Details Date Type Department Care Team ([facility] st Contact Info) Description 07/02/2024 Orders Only External Location [address] [place] [address] Provider, External Social History Tobacco Use Types [...] documented as of this encounter Care Teams Casino Attendant Relationship Specialty Start Date End Date Ceasar Myles MD [address] [place] [address] PCP - General 06/23/24 documented as of this encounter
--- OUTSIDE RECORDS SUMMARY | 2025-07-11 15:53 | XMS_ITS | Encounter Summary ---
Author Organization Healthcare Address [address] [place] [address] Care Team Providers Care Machine Hostler Name Role Phone Ceasar Myles MD Primary Care Provider [phone] Encounter Details Date Type Department Care Team ([facility] st Contact Info) Description 06/28/2024 Orders Only External Location [address] [place] [address] Provider, External Social History Tobacco Use Types [...] documented as of this encounter Care Teams Machine Hostler Relationship Specialty Start Date End Date Ceasar Myles MD [address] [place] [address] PCP - General 06/23/24 documented as of this encounter
--- OUTSIDE RECORDS SUMMARY | 2025-07-11 15:53 | XMS_ITS | Encounter Summary ---
Author Organization Healthcare Address [address] [place] [address] Care Team Providers Care Java Support Engineer Name Role Phone Ceasar Myles MD Primary Care Provider [phone] Encounter Details Date Type Department Care Team ([facility] st Contact Info) Description 06/29/2024 Orders Only External Location [address] [place] [address] Provider, External Social History Tobacco Use Types [...] documented as of this encounter Care Teams Java Support Engineer Relationship Specialty Start Date End Date Ceasar Myles MD [address] [place] [address] PCP - General 06/23/24 documented as of this encounter
--- OUTSIDE RECORDS SUMMARY | 2025-07-11 15:53 | XMS_ITS | Encounter Summary ---
Author Organization Healthcare Address [address] [place] [address] Care Team Providers Care Systems Management Consultant Name Role Phone Ceasar Myles MD Primary Care Provider [phone] Encounter Details Date Type Department Care Team ([facility] st Contact Info) Description 06/17/2024 Orders Only External Location [address] [place] [address] Provider, External Social History Tobacco Use Types [...] documented as of this encounter Care Teams Systems Management Consultant Relationship Specialty Start Date End Date Ceasar Myles MD [address] [place] [address] PCP - General 06/23/24 documented as of this encounter
--- OUTSIDE RECORDS SUMMARY | 2025-07-11 15:53 | XMS_ITS | Encounter Summary ---
Author Organization Healthcare Address [address] [place] [address] Care Team Providers Care Welding Lead Burner Name Role Phone Ceasar Myles MD Primary Care Provider [phone] Encounter Details Date Type Department Care Team ([facility] st Contact Info) Description 07/12/2024 Orders Only External Location [address] [place] [address] Jose Antonio Nation MD [address] [place], [place] [phone] Social History Tobacco Use Types Packs/Day Years [...] documented as of this encounter Care Teams Welding Lead Burner Relationship Specialty Start Date End Date Ceasar Myles MD [address] [place], [place] [phone] PCP - General 06/23/24 documented as of this encounter
--- OUTSIDE RECORDS SUMMARY | 2025-07-11 15:53 | XMS_ITS | Encounter Summary ---
Author Organization Healthcare Address [address] [place] [address] Care Team Providers Care Receiving Barn Custodian Name Role Phone Ceasar Myles MD Primary Care Provider [phone] Encounter Details Date Type Department Care Team ([facility] st Contact Info) Description 06/17/2024 Orders Only External Location [address] [place] [address] Provider, External Social History Tobacco Use Types [...] documented as of this encounter Care Teams Receiving Barn Custodian Relationship Specialty Start Date End Date Ceasar Myles MD [address] [place] [address] PCP - General 06/23/24 documented as of this encounter
--- OUTSIDE RECORDS SUMMARY | 2025-07-11 15:53 | XMS_ITS | Clinical Summary ---
Author Organization [facility] Address [address] [place] [address] Care Team Providers Care Tub Mender Name Role Phone Ceasar Myles MD Primary Care Provider [phone] Allergies Active Allergy Reactions Criticality Noted Date [...] place to sleep or slept in a alf (including now)? No 08/02/2024 Utilities Answer Date [...] Last Done Comments [facility]-/Child/Adol SDOH Screenings 1965 [id number] Vaccine (#1) 1969 [facility]-Pneumococcal Vaccine: 50+ Years [...] Patricia Harris CRNA, Suzie Henry CRNA Endo Baggage Clerk Noemi Roland MD Proceduralist Preprocedure A history [...] of bowel preparation was evaluated using the [place] Bowel Preparation Scale with scores of: right [...] HIV 1/2 Differentiation (07/31/2024 3:15 PM EDT) [facility] HIV 1 & 2 Antibody/Antigen Screen Non Reactive Non Reactive 07/31/2024 4:27 PM EDT [facility] Comment:Screening for HIV 1 & 2 antibodies, and P24 antigen is NONREACTIVE. No confirmatory testing is required. Blood Venous blood specimen / Unknown Venipuncture / Unknown 07/31/2024 3:15 PM EDT 07/31/2024 3:46 PM EDT Nixon Romero MD LAB BLOOD ORDERABLES Final Res ult Performing Organization Address City/[facility] Co de Phone Number [facility] [address] [place] [address] * Hepatitis C Antibody - ED (07/31/2024 3:15 PM EDT) [facility] Hepatitis C Antibody Negative Negative 07/31/2024 4:22 PM EDT [facility] Blood Venous blood specimen / Unknown Venipuncture / Unknown 07/31/2024 3:15 PM EDT 07/31/2024 3:43 PM EDT Nixon Romero MD LAB BLOOD ORDERABLES Final Res ult Performing Organization Address City/State/[facility] Co de Phone Number [facility] [address] [place] [address] from Last 3 Months or Most Recently [...] Patient has decision-making capacity? Yes Care Teams Tub Mender Relationship Specialty Start Date End Date Ceasar Myles MD [facility] [place] [address] PCP - General 06/23/24
--- NOTE | 2025-07-11 16:08 | SUR.PHASEII ---
called report to jeremi rogers
--- NOTE | 2025-07-11 16:43 | EXP.DC.SUM ---
General Admission date:: 07/08/25 HPI HPI HPI: Rodolfo Up is a 59-year-old male with medical history significant for CAD with 1 stent, current tobacco smoker, anxiety/depression, GERD, BPH who presents with chest heaviness for 2 days. He states he was sitting and drinking coffee 2 days ago when he started to feel sudden onset left-sided chest heaviness with radiation to bilateral arms and left ear pain. He went to [facility] but left AMA after he states he was sitting there for more than 11 hours and got a heparin . He was chest pain-free yesterday, but this morning he again felt chest heaviness with similar radiation. He states he had similar symptoms several years ago when he had a heart attack and required 1 stent. Denies shortness of breath, fever/chills, abdominal pain. Workup in the ED significant for troponin 0.06, EKG without acute ischemic changes but did show sinus bradycardia which is chronic. CBC, CMP, CXR unremarkable. Case discussed ED provider and I made the decision to admit patient for NSTEMI. Hospital Course Hospital Course Hospital Course: Rodolfo Up is a 59-year-old male with medical history significant for CAD with 1 stent, current tobacco smoker, anxiety/depression, GERD, BPH who presents with chest heaviness for 2 days. He states he was sitting and drinking coffee 2 days ago when he started to feel sudden onset left-sided chest heaviness with radiation to bilateral arms and left ear pain. He went to [facility] but left AMA after he states he was sitting there for more than 11 hours and got a heparin . He was chest pain-free yesterday, but this morning he again felt chest heaviness with similar radiation. He states he had similar symptoms several years ago when he had a heart attack and required 1 stent. Denies shortness of breath, fever/chills, abdominal pain. Workup in the ED significant for troponin 0.06, EKG without acute ischemic changes but did show sinus bradycardia which is chronic. CBC, CMP, CXR unremarkable. Case discussed ED provider and I made the decision to admit patient for NSTEMI. #Chest pressure #NSTEMI #History of CAD with stent #Current tobacco smoker ? Presented with 2 days of chest pressure with radiation to bilateral arms, left ear pain. ? Initial troponin 0.06, has plateaued at 0.06. EKG without acute ischemic changes. NSTEMI treated with therapeutic Lovenox due to intermittent chest pains during admission. ? Patient is a chronic current tobacco smoker. CXR without acute findings. ? ECHO does show wall motion abnormalities with mild hypokinesis of the LV wall, LVEF 50 to 55%. ? Hemoglobin A1c 6.0%, TSH normal, LDL 41. ? Cardiology consulted, s/p PCI 07/11/2025 with PIERO to left circumflex artery. Patient tolerated procedure well. ? Started aspirin 81 mg, continue home Plavix 75 mg, atorvastatin 40 mg. Held off on beta-tere due to chronic bradycardia. Rate 49, but asymptomatic. Ambulating without issues. ? Strongly encouraged smoking cessation, patient states he will consider. Prescribed nicotine patches. ? Will follow-up with cardiology within 1 week. #Anxiety/depression ? Continue home fluoxetine 20 mg. #GERD ? Continue home PPI. #BPH ? Continue home tamsulosin 0.4 mg. Total time spent on discharge: 31 minutes on chart review, counseling, documentation, and direct care with patient. Exam Data for Last 24 hours Vital signs and Labs for Last 24 Hours: Temp Pulse Resp BP Pulse Ox O2 Del Method 98.1 F 50 L 16 132/64 93 L Room Air 07/11/25 16:20 07/11/25 16:20 07/11/25 16:20 07/11/25 16:20 07/11/25 16:20 07/11/25 16:20 Laboratory Results - last 24 hr 07/11/25 06:25: WBC 4.8, RBC 4.63, Hgb 13.9 L, Hct 41.6 L, MCV 89.8, MCH 30.0, MCHC 33.4, RDW 12.9, Plt Count 204, MPV 10.1, Neut % (Auto) 60.0, Lymph % (Auto) 31.6, [place] % (Auto) 6.6, Eos % (Auto) 1.2, Baso % (Auto) 0.4, Neut # (Auto) 2.9, Lymph # (Auto) 1.5, [place] # (Auto) 0.3, Eos # (Auto) 0.1, Baso # (Auto) 0.0, Sodium 136, Potassium 4.2, Chloride 105, Carbon Dioxide 25, Anion Gap 10.2, BUN 14, Creatinine 0.80, Estimated Creat Clear 123, Estimated GFR 99, Est GFR ( Amer) 119, Glucose 111 H, Calcium 9.0, Magnesium 2.1 D, Total Bilirubin 0.5, AST 28, ALT 25, Alkaline Phosphatase 82, Total Protein 6.4, Albumin 3.9, Globulin 2.5, Albumin/Globulin Ratio 1.6 I & O for Last 24 hours: Intake & Output 07/08/25 07/09/25 07/10/25 07/11/25 23:59 23:59 23:59 23:59 Intake Total 400 / 640 1320 / 1560 860 / 1220 1200 / 1200 Output Total 0 / 0 0 / 0 0 / 0 0 / 0 Balance 400 / 640 1320 / 1560 860 / 1220 1200 / 1200 Weight 86.183 kg 89.267 kg 89.176 kg 88.405 kg Constitutional Constitutional: no acute distress *Routine HEENT Exam Head: Present normocephalic Eye: Present EOMI and PERRL ENT: Present mucous membranes moist *Routine Neck Exam Neck: Present supple; Absent lymphadenopathy *Routine Respiratory Exam Respiratory: Present CTA bilaterally *Routine Cardiovascular Exam Cardiovascular: Present RRR *Routine Abdominal Exam Abdominal: Present soft and normoactive bowel sounds; Absent tenderness *Routine Extremities Exam Extremities: Absent cyanosis, clubbing or edema *Routine Skin Exam Skin: Present warm; Absent rash *Routine Neurological Exam Neurological: Present alert and oriented X3 Results Data Completed and Pending Labs on day of discharge: Labs from last 24 hours 07/11/25 06:25 WBC 4.8 RBC 4.63 Hgb 13.9 L Hct 41.6 L MCV 89.8 MCH 30.0 MCHC 33.4 RDW 12.9 Plt Count 204 MPV 10.1 Neut % (Auto) 60.0 Lymph % (Auto) 31.6 [place] % (Auto) 6.6 Eos % (Auto) 1.2 Baso % (Auto) 0.4 Neut # (Auto) 2.9 Lymph # (Auto) 1.5 [place] # (Auto) 0.3 Eos # (Auto) 0.1 Baso # (Auto) 0.0 Sodium 136 Potassium 4.2 Chloride 105 Carbon Dioxide 25 Anion Gap 10.2 BUN 14 Creatinine 0.80 Estimated Creat Clear 123 Estimated GFR 99 Est GFR ( Amer) 119 Glucose 111 H Calcium 9.0 Magnesium 2.1 D Total Bilirubin 0.5 AST 28 ALT 25 Alkaline Phosphatase 82 Total Protein 6.4 Albumin 3.9 Globulin 2.5 Albumin/Globulin Ratio 1.6 DS: Diagnosis Discharge Diagnosis (1) Non-ST elevation myocardial infarction (NSTEMI): Status: Acute Code(s): I21.4 - Non-ST elevation (NSTEMI) myocardial infarction (2) Angina pectoris: Status: Acute Code(s): I20.9 - Angina pectoris, unspecified (3) CAD (coronary artery disease), [place] coronary artery: Status: Acute Code(s): I25.10 - Atherosclerotic heart disease of [place] coronary artery without angina pectoris Qualifiers: Associated angina: unspecified whether angina present [place] vs. transplanted heart: apache heart Qualified Code(s): I25.10 - Atherosclerotic heart disease of [place] coronary artery without angina pectoris (4) Hyperlipidemia: Status: Acute Code(s): E78.5 - Hyperlipidemia, unspecified Qualifiers: Hyperlipidemia type: mixed hyperlipidemia Qualified Code(s): E78.2 - Mixed hyperlipidemia Meds Home Medications and Allergies Home Medications ?Medication ?Instructions ?Recorded ?Confirmed ?Type atorvastatin 40 mg tablet 40 mg PO HS #90 tabs 05/30/25 07/08/25 Rx fluoxetine 20 mg capsule 20 mg PO DAILY #90 caps 05/30/25 07/08/25 Rx nitroglycerin 0.4 mg sublingual 0.4 mg sublingual Q5M PRN Chest 07/08/25 07/08/25 History tablet Pain oxycodone 5 mg tablet 5 mg PO DAILYP PRN Severe Pain 07/08/25 07/08/25 History (Scale Score 7-10) pantoprazole 40 mg tablet,delayed 40 mg PO DAILY 07/08/25 07/08/25 History release tamsulosin 0.4 mg capsule (Flomax) 0.4 mg PO HS 07/08/25 07/08/25 History aspirin 81 mg tablet,delayed 81 mg PO DAILY 30 days #30 tabs 07/11/25 Rx release clopidogrel 75 mg tablet 75 mg PO DAILY 30 days #30 tabs 07/11/25 Rx nicotine 21 mg/24 hr daily 1 patch transdermal DAILY #28 ea 07/11/25 Rx transdermal patch New Prescriptions to Start Prescriptions: aspirin [place] clopidogrel [place] nicotine [place] Allergies Allergy/AdvReac Type Severity Reaction Status Date / Time morphine AdvReac Vomiting Verified 05/30/25 12:54 Discharge Plan Disposition Patient Disposition: Home, Self-Care Condition: Fair Discharge Order Discharge Orders: Discharge Order (Routine); Ordered 07/11/25 Ordered By: Lalito Hickman Follow up Plan Follow up with: Noble Conway MD [Staff Physician, Cardiology] Prescriptions/Medication Reconciliation: New aspirin 81 mg Tablet,Delayed Release (Dr/Ec) 81 mg PO DAILY 30 Days Qty: 30 0RF nicotine 21 mg/24 hr patch 24 hour 1 patch transdermal DAILY Qty: 28 0RF Continued atorvastatin 40 mg tablet 40 mg PO HS Qty: 90 3RF fluoxetine 20 mg capsule 20 mg PO DAILY Qty: 90 3RF tamsulosin [Flomax] 0.4 mg capsule 0.4 mg PO HS pantoprazole 40 mg tablet,delayed release (DR/EC) 40 mg PO DAILY oxycodone 5 mg tablet 5 mg PO DAILYP PRN (Reason: Severe Pain (Scale Score 7-10)) nitroglycerin 0.4 mg Tablet, Sublingual 0.4 mg SUBLINGUAL Q5M PRN (Reason: Chest Pain) Rx Instructions: do not exceed 3 doses per episode clopidogrel 75 mg tablet 75 mg PO DAILY 30 Days Qty: 30 3RF Other Ambulatory Orders: Complete Blood Count Auto Diff (Routine) Timeframe: 3 Days Facility: [facility] - Location: Laboratory Ordered By: Noble Conway Comprehensive Metabolic Panel (Routine) Timeframe: 3 Days Facility: [facility] - Location: Laboratory Ordered By: Noble Conway Problem Reconciliation Problems Reviewed?: Yes Patient Discharge Instructions Additional Instructions: You were not started on metoprolol as your heart rate is on the low side, but normal. Follow-up with cardiology for further discussion. Your blood thinners (aspirin, Plavix) are your most important medications until you follow-up with cardiology. Patient Instructions: DI for Cardiac Catheterization, DI for Chest Pain, DI for Moderate Sedation Print Language: Tanzanian Providers Primary Care Provider: Provider,Referral Admit Provider: Lalito Hickman Attending Provider: Lalito Hickman
[2025-07-11 17:24] LABS: CATHL Activated Clotting Time 315 SEC (74-125)
--- NOTE | 2025-07-11 18:46 | PC.NURSE ---
pt is A&Ox4. pt had left heart cath today and 1 stent was placed in the circumflex artery. his vitals are stable after the procedure and he has had a little bradycardia in the 40s and 50s. when the air is all out of his band he is ready for discharge. pt has no other needs at this time. call light is within reach.
--- NOTE | 2025-07-12 10:58 | SW/DCPLANNER ---
Spoke with patient on the phone. Patient stated that he is aware of his appointment with Dr Conway. Patient stated that he is going today to burr picker his medicine from [facility]. Patient stated that he has no concerns or questions at this time. Arthur Lovett
== END 2025-07-11 20:50 | disposition home or self-care (01) | DRG 322 ==
LOC: ER 13:22 → 2ND 07-09 04:01
PROVIDERS: Internal Medicine; Admitting Provider Student in an Organized Health Care Education/Training Program; Emergency Provider Student in an Organized Health Care Education/Training Program; Visit Provider Student in an Organized Health Care Education/Training Program
PROC: 4A023N7 Measurement of Cardiac Sampling and Pressure, Left Heart, Percutaneous Approach (ICD-10-PCS; CPT 93452; principal; 2025-07-11 17:00)
DX: I21.4 Non-ST elevation (NSTEMI) myocardial infarction (principal); N40.0 Benign prostatic hyperplasia without lower urinary tract symptoms; K21.9 Gastro-esophageal reflux disease without esophagitis; F41.9 Anxiety disorder, unspecified; F32.A Depression, unspecified; F17.210 Nicotine dependence, cigarettes, uncomplicated; R00.1 Bradycardia, unspecified; I25.10 Atherosclerotic heart disease of native coronary artery without angina pectoris; E78.5 Hyperlipidemia, unspecified; Z95.5 Presence of coronary angioplasty implant and graft; Z79.02 Long term (current) use of antithrombotics/antiplatelets; Z79.899 Other long term (current) drug therapy; Z88.5 Allergy status to narcotic agent
CPT/HCPCS: 36415; 71046; 80053; 80061; 83036; 83735; 83880; 84443; 84484; 85025; 85347; 85378; 87631; 93005; 93306; 99152; C1725; C1769; C1874; J1200; J1644; J1650; J2003; J2250; J2405; J3010; J7040

== ENCOUNTER 2025-07-14 08:29 | Outpatient (CLI) | payer MEDICAID, SELFPAY ==
[2025-07-14 08:54] LABS: Hematocrit 45.6 % (42.0-52.0); Hemoglobin 14.9 g/dL (14.1-18.0); Immature Granulocytes % 0.4 %; Mean Corpuscular HGB Conc 32.7 g/dL (31.8-35.4); Mean Corpuscular Hemoglobin 29.7 pg (27.0-31.2); Mean Corpuscular Volume 91.0 fl (80-94); Nucleated Red Blood Cells % 0 %; Platelet Count 208 K/mm3 (142-424); Red Blood Count 5.01 M/mm3 (4.60-6.20); Red Cell Distribution Width-SD 44.2 fL; White Blood Count 5.3 K/mm3 (4.8-10.8)
[2025-07-14 09:19] LABS: Alanine Aminotransferase 40 U/L (12-78); Albumin Level 4.3 g/dl (3.5-5.0); Albumin/Globulin Ratio 1.8 (1.1-1.8); Alkaline Phosphatase 85 U/L (38-126); Anion Gap 12.1 mEq/L (5-15); Aspartate Amino Transferase 29 U/L (17-59); Bilirubin,Total 0.4 mg/dl (0.2-1.3); Blood Urea Nitrogen 18 mg/dl (9-20); Calcium 9.4 mg/dl (8.4-10.2); Carbon Dioxide 25 mmol/L (22.0-30.0); Chloride 105 mmol/L (98-107); Creatinine,Serum 0.90 mg/dl (0.66-1.25); Estimated Glomerular Filt Rate 86 ml/min (>60); GFR (African American) 104 ML/MIN (>60); Globulin 2.4 g/dL (1.3-3.2); Glucose 126 mg/dl (74-100); Potassium 4.1 mmoL/L (3.5-5.1); Sodium 138 mmol/L (136-145); Total Protein,Serum 6.7 g/dl (6.3-8.2)
== END 2025-07-14 23:59 | disposition home or self-care (01) ==
LOC: LAB 08:30
PROVIDERS: PCP Family Medicine; Visit Provider Internal Medicine
DX: I21.4 Non-ST elevation (NSTEMI) myocardial infarction (principal)
CPT/HCPCS: 36415; 80053; 85025

== ENCOUNTER 2025-11-09 10:09 | Outpatient (CLI) | payer MEDICAID, SELFPAY ==
[2025-11-09 10:38] LABS: Blood Urea Nitrogen 13 mg/dl (9-20); Creatinine,Serum 0.80 mg/dl (0.66-1.25); Estimated Glomerular Filt Rate 98 ml/min (>60); GFR (African American) 119 ML/MIN (>60)
--- NOTE | 2025-11-09 10:45 | CT_ITS ---
FINAL REPORT TECHNIQUE: Oral and IV contrast enhanced exam This study was performed with techniques to keep radiation doses as low as reasonably achievable, (ALARA). Individualized dose reduction techniques using automated exposure control or adjustment of mA and/or kV according to the patient's size were employed. CLINICAL HISTORY: Abdominal pain, Fistula COMPARISON: 06/08/2025 FINDINGS: Abdomen: Lung bases are clear. The gallbladder is unremarkable. Liver has an unremarkable CT appearance. The spleen and pancreas are unremarkable. 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 There is a 10 mm lesion in the left mid kidney that likely represents a cyst. The multiple upper and central abdominal wall hernias are similar to the prior exam, and remain intact anteriorly. No bowel obstruction or fluid collection is seen. Pelvis: Surgical changes are again noted in the right lower quadrant small bowel. The appendix is not visualized. Pelvic bowel loops are unremarkable. No fluid collection or adenopathy is seen. The bladder and prostate are unremarkable. There is a small left inguinal hernia containing fat. IMPRESSION: Stable exam of the abdomen and pelvis without evidence of an enterocutaneous fistula. Reviewed, Interpreted and Dictated by Andrew Acuna MD Transcribed by Namita Richard Authenticated and [facility]
[2025-11-09] MEDS: IOPAMIDOL-370 (76%);100ML BOTTLE 75 ML IV (11:11)
[2025-11-09] MEDS: SODIUM CHLORIDE 0.9% 10ML SYR (RAD ONLY) 10 ML IV (11:11)
[2025-11-09] MEDS: BARIUM SULFATE(READI-CAT2);450ML BOTTLE 450 ML PO (11:11)
--- OUTSIDE RECORDS SUMMARY | 2025-11-09 11:57 | XMS_ITS | Encounter Summary ---
Author Organization Healthcare Address [address] [place] [address] Care Team Providers Care Fitter Welder Name Role Phone Ceasar Myles MD Primary Care Provider [phone] Encounter Details Date Type Department Care Team ([facility] st Contact Info) Description 06/29/2024 Orders Only External Location [address] [place] [address] Provider, External Social History Tobacco Use Types [...] documented as of this encounter Care Teams Fitter Welder Relationship Specialty Start Date End Date Ceasar Myles MD [address] [place] [address] PCP - General 06/23/24 documented as of this encounter
--- OUTSIDE RECORDS SUMMARY | 2025-11-09 11:58 | XMS_ITS | Encounter Summary ---
Author Organization Healthcare Address [address] [place] [address] Care Team Providers Care Fruit Culler Name Role Phone Ceasar Myles MD Primary Care Provider [phone] Encounter Details Date Type Department Care Team ([facility] st Contact Info) Description 06/17/2024 Orders Only External Location [address] [place] [address] Provider, External Social History Tobacco Use Types [...] documented as of this encounter Care Teams Fruit Culler Relationship Specialty Start Date End Date Ceasar Myles MD [address] [place] [address] PCP - General 06/23/24 documented as of this encounter
--- OUTSIDE RECORDS SUMMARY | 2025-11-09 11:58 | XMS_ITS | Encounter Summary ---
Author Organization Healthcare Address [address] [place] [address] Care Team Providers Care Shadow Graph Weight Operator Name Role Phone Ceasar Myles MD Primary Care Provider [phone] Encounter Details Date Type Department Care Team ([facility] st Contact Info) Description 07/02/2024 Orders Only External Location [address] [place] [address] Provider, External Social History Tobacco Use Types [...] documented as of this encounter Care Teams Shadow Graph Weight Operator Relationship Specialty Start Date End Date Ceasar Myles MD [address] [place] [address] PCP - General 06/23/24 documented as of this encounter
--- OUTSIDE RECORDS SUMMARY | 2025-11-09 11:58 | XMS_ITS | Encounter Summary ---
Author Organization Healthcare Address [address] [place] [address] Care Team Providers Care Internal Medicine Physician Assistant Name Role Phone Ceasar Myles MD Primary Care Provider [phone] Encounter Details Date Type Department Care Team ([facility] st Contact Info) Description 07/04/2024 Orders Only External Location [address] [place] [address] Jose Antonio Nation MD [address] [place], [place] [id number] Social History Tobacco Use Types Packs/Day Years [...] documented as of this encounter Care Teams Internal Medicine Physician Assistant Relationship Specialty Start Date End Date Ceasar Myles MD [facility] [place] [address] PCP - General 06/23/24 documented as of this encounter
--- OUTSIDE RECORDS SUMMARY | 2025-11-09 11:58 | XMS_ITS | Encounter Summary ---
Author Organization Healthcare Address [address] [place] [address] Care Team Providers Care Roller Engraver Name Role Phone Ceasar Myles MD Primary Care Provider [phone] Encounter Details Date Type Department Care Team ([facility] st Contact Info) Description 07/03/2024 Orders Only External Location [address] [place] [address] Jose Antonio Nation MD [address] [place], [place] [phone] Social History Tobacco Use Types Packs/Day Years [...] documented as of this encounter Care Teams Roller Engraver Relationship Specialty Start Date End Date Ceasar Myles MD [facility] [place] [address] PCP - General 06/23/24 documented as of this encounter
--- OUTSIDE RECORDS SUMMARY | 2025-11-09 11:58 | XMS_ITS | Encounter Summary ---
Author Organization Healthcare Address [address] [place] [address] Care Team Providers Care Truss Assembler Name Role Phone Ceasar Myles MD Primary Care Provider [phone] Encounter Details Date Type Department Care Team ([facility] st Contact Info) Description 07/02/2024 Orders Only External Location [address] [place] [address] Jose Antonio Nation MD [address] [place], [place] [id number] Social History Tobacco Use Types Packs/Day Years [...] documented as of this encounter Care Teams Truss Assembler Relationship Specialty Start Date End Date Ceasar Myles MD [address] [place], [place] [phone] PCP - General 06/23/24 documented as of this encounter
--- OUTSIDE RECORDS SUMMARY | 2025-11-09 11:58 | XMS_ITS | Encounter Summary ---
Author Organization Healthcare Address [address] [place] [address] Care Team Providers Care Certified Registered Nurse Practitioner Name Role Phone Ceasar Myles MD Primary Care Provider Encounter Details Date Type Department Care Team ([facility] st Contact Info) Description 06/28/2024 Orders Only External Location [address] [place] [address] Provider, External Social History Tobacco Use Types [...] documented as of this encounter Care Teams Certified Registered Nurse Practitioner Relationship Specialty Start Date End Date Ceasar Myles MD [address] [place] [address] PCP - General 06/23/24 documented as of this encounter
--- OUTSIDE RECORDS SUMMARY | 2025-11-09 11:58 | XMS_ITS | Encounter Summary ---
Author Organization Healthcare Address [address] [place] [address] Care Team Providers Care Interior Design Principal Name Role Phone Ceasar Myles MD Primary Care Provider [phone] Encounter Details Date Type Department Care Team ([facility] st Contact Info) Description 07/02/2024 Orders Only External Location [address] [place] [address] Provider, External Social History Tobacco Use Types [...] documented as of this encounter Care Teams Interior Design Principal Relationship Specialty Start Date End Date Ceasar Myles MD [address] [place] [address] PCP - General 06/23/24 documented as of this encounter
--- OUTSIDE RECORDS SUMMARY | 2025-11-09 11:58 | XMS_ITS | Encounter Summary ---
Author Organization Healthcare Address [address] [place] [address] Care Team Providers Care Strand And Binder Controller Name Role Phone Ceasar Myles MD Primary Care Provider [phone] Encounter Details Date Type Department Care Team ([facility] st Contact Info) Description 06/17/2024 Orders Only External Location [address] [place] [address] Provider, External Social History Tobacco Use Types [...] documented as of this encounter Care Teams Strand And Binder Controller Relationship Specialty Start Date End Date Ceasar Myles MD [address] [place] [address] PCP - General 06/23/24 documented as of this encounter
--- OUTSIDE RECORDS SUMMARY | 2025-11-09 11:58 | XMS_ITS | Encounter Summary ---
Author Organization Healthcare Address [address] [place] [address] Care Team Providers Care Composition Worker Name Role Phone Ceasar Myles MD Primary Care Provider [phone] Encounter Details Date Type Department Care Team ([facility] st Contact Info) Description 07/04/2024 Orders Only External Location [address] [place] [address] Jose Antonio Nation MD [address] [place], [place] [phone] Social History Tobacco Use Types Packs/Day Years [...] documented as of this encounter Care Teams Composition Worker Relationship Specialty Start Date End Date Ceasar Myles MD [address] [place], [place] [id number] PCP - General 06/23/24 documented as of this encounter
--- OUTSIDE RECORDS SUMMARY | 2025-11-09 11:58 | XMS_ITS | Encounter Summary ---
Author Organization Healthcare Address [address] [place] [address] Care Team Providers Care Buffing Line Set Up Worker Name Role Phone Ceasar Myles MD Primary Care Provider [phone] Encounter Details Date Type Department Care Team ([facility] st Contact Info) Description 07/06/2024 Orders Only External Location [address] [place] [address] Jose Antonio Nation MD [address] [place], [place] [phone] Social History Tobacco Use Types Packs/Day Years [...] documented as of this encounter Care Teams Buffing Line Set Up Worker Relationship Specialty Start Date End Date Ceasar Myles MD [address] [place], [place] [phone] PCP - General 06/23/24 documented as of this encounter
--- OUTSIDE RECORDS SUMMARY | 2025-11-09 11:59 | XMS_ITS | Clinical Summary ---
Author Organization [facility] Address [address] [place] [address] Phone Care Team Providers Care Long Filler Cigar Roller Machine Name Role Phone Ceasar Myles MD Primary Care Provider [phone] Allergies No known active allergies Medications fluoxetine [...] of 2) 2014 COVID-19 Vaccine (1 - 2024-2 6 season) 2025 Influenza Vaccine (#1) 2025 Hepatitis B Vaccine Aged Out No longe r eligible based on patient's age to complete this topic Meningococcal B Vaccine Aged Out No l onger eligible based on patient's age to complete this topic Insurance [facility] [id number] Care Teams Long Filler Cigar Roller Machine Relationship Specialty Start Date End Date Ceasar Myles MD PCP - General 05/01/10
--- OUTSIDE RECORDS SUMMARY | 2025-11-09 11:59 | XMS_ITS | Encounter Summary ---
Author Organization Healthcare Address [address] [place] [address] Care Team Providers Care Department Clinician Name Role Phone Ceasar Myles MD Primary Care Provider [phone] Encounter Details Date Type Department Care Team ([facility] st Contact Info) Description 07/12/2024 Orders Only External Location [address] [place] [address] Jose Antonio Nation MD [address] [place], [place] [phone] Social History Tobacco Use Types Packs/Day Years [...] documented as of this encounter Care Teams Department Clinician Relationship Specialty Start Date End Date Ceasar Myles MD [address] [place], [place] [phone] PCP - General 06/23/24 documented as of this encounter
--- OUTSIDE RECORDS SUMMARY | 2025-11-09 11:59 | XMS_ITS | Encounter Summary ---
Author Organization Healthcare Address [address] [place] [address] Care Team Providers Care Job Development Specialist Name Role Phone Ceasar Myles MD Primary Care Provider [phone] Encounter Details Date Type Department Care Team ([facility] st Contact Info) Description 07/04/2024 Orders Only External Location [address] [place] [address] Jose Antonio Nation MD [address] [place], [place] [phone] Social History Tobacco Use Types Packs/Day Years [...] documented as of this encounter Care Teams Job Development Specialist Relationship Specialty Start Date End Date Ceasar Myles MD [address] [place], [place] [phone] PCP - General 06/23/24 documented as of this encounter
--- OUTSIDE RECORDS SUMMARY | 2025-11-09 11:59 | XMS_ITS | Clinical Summary ---
Author Organization [facility] Address [address] [place] [address] Care Team Providers Care Car Sealer Name Role Phone Ceasar Myles MD Primary Care Provider [phone] Allergies Active Allergy Reactions Criticality Noted Date [...] place to sleep or slept in a group home (including now)? No 08/02/2024 Utilities Answer Date [...] Last Done Comments [facility]-/Child/Adol SDOH Screenings 1964 [id number] Vaccine (#1) 02/12/1965 [facility]- SDOH Screenings 1982 [facility]-Adult SDOH Screenings 1982 [facility]-Pneumococcal Vaccine: 50+ Years (1 of 2 - PCV) 1983 [facility]-Zoster Vaccines (1 of 2) 1983 [facility]-DTaP,Tdap,and Td Vaccines (1 - Tdap) 01/15/2006 01/14/2006 CT Colonography 2009 FIT-DNA 2009 FIT 2009 FOBT 2009 Sigmoidoscopy 2009 Lung Cancer Screening Shared Decision Making 2014 [facility]-Lung Cancer Screening 2014 [facility]-RSV Vaccine: 60+ Years or (1 - Risk 50-74 years 1-dose series) 2014 [facility]-Influenza Vaccine (#1) 2025 [facility]-Depression Screening 09/28/2025 09/28/2024 Colonoscopy 01/17/2035 01/17/2025 [facility]-Colorectal Cancer Screening 01/17/2035 [facility]-HIV Screening Completed 07/31/2024 [facility]-Hepatitis C Screening Completed 07/31/2024, 05/2024 [facility]-Obesity Intervention Completed 025, 12/06/2024, 09/28/2024, Additional history exists HPV Vaccines (No Doses Required) Completed [facility]-HIB Vaccines Aged Out No longer e [...] anesthesia administered medications. Staff Staff Role Sue Parson, MARIANNE Endo Nurse Bubba Cast MD Anesthesiologist Patricia Harris CRNA, Suzie Henry CRNA Endo [employer] Specialist Noemi Roland MD Proceduralist Preprocedure A history [...] of bowel preparation was evaluated using the Denver Bowel Preparation Scale with scores of: right [...] HIV 1/2 Differentiation (07/31/2024 3:15 PM EDT) Pathologist [facility] HIV 1 & 2 Antibody/Antigen Screen Non Reactive Non Reactive 07/31/2024 4:27 PM EDT [facility] Comment:Screening for HIV 1 & 2 antibodies, and P24 antigen is NONREACTIVE. No confirmatory testing is required. Blood Venous blood specimen / Unknown Venipuncture / Unknown 07/31/2024 3:15 PM EDT 07/31/2024 3:46 PM EDT Nixon Romero MD LAB BLOOD ORDERABLES Final Res [facility] [address] [place] [address] * Hepatitis C Antibody - ED (07/31/2024 3:15 PM EDT) [facility] Hepatitis C Antibody Negative Negative 07/31/2024 4:22 PM EDT [facility] Blood Venous blood specimen / Unknown Venipuncture / Unknown 07/31/2024 3:15 PM EDT 07/31/2024 3:43 PM EDT Nixon Romero MD LAB BLOOD ORDERABLES Final Res ult [facility] [address] [place] [address] from Last 3 Months or Most Recently Relevant to Health Maintenance Insurance MEDICAID [place] Advance Directives * Full Code (Latest Code Status on File) Date Activated Date Inactivated Comments 08/01/2024 12:16 AM 08/02/2024 5:07 PM Question Answer Comments Patient has decision-making capacity? Yes * Full Code Date Activated Date Inactivated Comments 07/24/2024 4:56 AM 07/28/2024 7:24 PM Question Answer Comments Patient has decision-making capacity? Yes Care Teams Car Sealer Relationship Specialty Start Date End Date Ceasar Myles MD [address] [place] [id number] PCP - General 06/23/24
--- OUTSIDE RECORDS SUMMARY | 2025-11-09 11:59 | XMS_ITS | Encounter Summary ---
Author Organization Healthcare Address [address] [place] [address] Care Team Providers Care Adjunct Nursing Faculty Name Role Phone Ceasar Myles MD Primary Care Provider [phone] Encounter Details Date Type Department Care Team ([facility] st Contact Info) Description 07/12/2024 Orders Only External Location [address] [place] [address] Provider, External Social History Tobacco Use Types [...] documented as of this encounter Care Teams Adjunct Nursing Faculty Relationship Specialty Start Date End Date Ceasar Myles MD [address] [place] [address] PCP - General 06/23/24 documented as of this encounter
== END 2025-11-09 23:59 | disposition home or self-care (01) ==
LOC: RAD 10:10
PROVIDERS: PCP Family Medicine; Visit Provider Family Medicine
DX: L98.8 Other specified disorders of the skin and subcutaneous tissue (principal); R10.9 Unspecified abdominal pain
CPT/HCPCS: 36415; 74160; 82565; 84520; Q9967